=== PATIENT | female | born 1970 | race Caucasian/White ===

== ENCOUNTER 2024-01-25 12:42 | Outpatient (OUT) | payer MEDICARE, SELFPAY ==
--- NOTE | 2024-01-25 12:49 | ECG_ITS ---
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
[2024-01-25 13:21] LABS: INR 0.97; Partial Thromboplastin Time 26.7 sec (22.3-36.2); Prothrombin Time 10.3 sec (9.0-11.6)
== END 2024-01-25 12:43 | disposition home or self-care (01) ==
PROVIDERS: PCP Internal Medicine; Visit Provider Urology
DX: Z01.810 Encounter for preprocedural cardiovascular examination (principal); Z01.812 Encounter for preprocedural laboratory examination; N13.2 Hydronephrosis with renal and ureteral calculous obstruction; F41.9 Anxiety disorder, unspecified; F32.A Depression, unspecified; E78.00 Pure hypercholesterolemia, unspecified; C16.9 Malignant neoplasm of stomach, unspecified
CPT/HCPCS: 36415; 85610; 85730; 93005

== ENCOUNTER 2024-01-26 10:34 | Day surgery (SDC) | payer MEDICARE, SELFPAY ==
[2024-01-25 13:45] VITALS: BP 159/89; PULSE 85; TEMP 36.6; O2SAT 100
[2024-01-25 13:46] VITALS: BMI 34.7
[2024-01-26] VITALS (15 sets, daily range): BP systolic 147–157; BP diastolic 66–81; PULSE 50–78; TEMP 36.3–36.6; O2SAT 92–99; BMI 36.7
--- NOTE | 2024-01-26 10:44 | XR_ITS ---
The [address] [address] Patient Name: HANK LAMAR MRN: [id number] date: 1970 Sex: F Assigned Patient Location: [facility] Current Patient Location: Accession/Order Number: [id number] Exam Date: 01/26/2024 10:40 Report Date: 01/27/2024 08:22 At the request of: SEAMUS PEREIRA Procedure: XR abdomen 1V EXAMINATION: XR abdomen 1V HISTORY: kidney stones COMPARISON: No relevant comparison available. FINDINGS: KIDNEY/URETER - RIGHT: No visible renal or ureteral calcifications. KIDNEY/URETER - LEFT: No visible renal or ureteral calcifications. PELVIS: No visible ureteral calcifications. Any visible calcifications favor phleboliths. BOWEL: No abnormal dilation or deviation. BONES: No acute abnormality. Mild to moderate degenerative changes OTHER: Negative. No abnormal gaseous collections. XR/XR abdomen 1V IMPRESSION: No definite urinary tract calculi Electronically authenticated by: NATY DRAPER Date: 01/27/2024 08:22
[2024-01-26] MEDS: LACTATED RINGER'S SOLUTION 1,000 ML 50 ML IV (11:48)
[2024-01-26] MEDS: CEFAZOLIN SODIUM 2 GM/50 ML D5W PREMIX IV (12:48)
--- NOTE | 2024-01-26 14:05 | P.URON_ITS ---
Urology Surgery Operative Note Operative Note Procedure Date: 01/26/24 Time Out Performed: yes Pre-op Diagnosis: Right ureterolithiasis Post-op Diagnosis: same as pre-op Procedures performed: 1. Right ESWL. 2. Right rigid ureteral dilation. 3. Right ureteroscopy. Anesthesia: General-LMA Primary Surgeon: Dakota Dyer Complications: None Estimated blood loss (mL): 5 Findings: Distal right ureteral calculus Specimens: None Drains: None Indications for Procedures: This lady has a 5 to 6 mm distal right ureteral calculus that she is unable to pass. She is desirous for ESWL and possible ureteroscopic stone manipulation. She has signed an informed consent after risks were explained. Some of these risks include bleeding, perinephric hematoma, infection and anesthesia to name a few. Detailed description of Procedure: The patient was brought to the Operating Room and placed on [employer] lithotripsy treatment table in the supine position. SCDs were placed on their lower extremities and turned on and functioning during the entire case. Timeout was done by all parties in the room. We all agreed upon the patient's identification and the planned procedures for this patient. General Anesthesia was then administered via LMA. Treatment head was then brought to the patient's right side. While using flourscopy the stone was identified and lined up into the crosshairs. We then began applying shocks. We started at power level 2.0 and increased to a maximum power level of 3.5. Intermittent fluoroscopy revealed that the stone seemed to steadily fragment. We applied a total of 3000 shocks. We had no evidence of formed stone visible fluoroscopically upon completion. This part of the procedure was then terminated. She was then repositioned into the modified dorsolithotomy position. All pressure points were satisfactorily padded. Genitalia were sterilely prepped and draped in the usual fashion. I started by passing a 22 [place] Olympus cystoscope per urethra and into the bladder. Panendoscopy in the bladder revealed no evidence of any tumors or stones. There was some debris within the bladder presumedly representing the fragmented stone. I then passed a Glidewire through the scope and up the right ureter. There was an immediate E flux of some stony debris. I then used a 8 [place] dilator to dilate the distal ureter. The scope was removed and I then passed a semirigid ureteroscope into the bladder and into the right ureter. I scoped up to L5 and back and there was no evidence of any formed stone remaining. 1 could see stone debris within the ureter and this was passing into the bladder. I elected not to place a stent. The ureteroscope was removed. The ureter was dilated with a 10 [place] dilator and then the dilator and wire were removed. The cystoscope emptied the bladder and that was removed. She was then transferred to a [facility] bed and wheeled to PACU in stable condition.
[2024-01-26] MEDS: HYDROMORPHONE HCL 0.5 MG/0.5 ML SYRINGE IV ×2 (14:22→14:35)
== END 2024-01-26 15:50 | disposition home or self-care (01) ==
PROVIDERS: PCP Internal Medicine; Visit Provider Urology
PROC: (CPT 50590; principal; 2024-01-26 12:05)
DX: N13.2 Hydronephrosis with renal and ureteral calculous obstruction (principal); F41.8 Other specified anxiety disorders; F41.9 Anxiety disorder, unspecified; E78.00 Pure hypercholesterolemia, unspecified; R35.1 Nocturia; R35.0 Frequency of micturition; R33.9 Retention of urine, unspecified; Z90.49 Acquired absence of other specified parts of digestive tract; Z90.710 Acquired absence of both cervix and uterus; N39.3 Stress incontinence (female) (male); Z87.891 Personal history of nicotine dependence; G47.33 Obstructive sleep apnea (adult) (pediatric); K21.9 Gastro-esophageal reflux disease without esophagitis; Z85.028 Personal history of other malignant neoplasm of stomach
CPT/HCPCS: 50590; 52351; 74018; J0690; J1100; J1170; J1885; J2250; J2405; J2704; J3010

== ENCOUNTER 2024-10-21 16:48 | Emergency (ER) | payer MEDICARE, SELFPAY ==
--- OUTSIDE RECORDS SUMMARY | 2024-10-21 16:59 | XMS_ITS | CCD ---
Author Organization [facility] Care Team Providers Care Choker Hooker Name Role Phone Trey Brown Unavailable Unavailable Unavailable Naty Booker Jr. Unavailable [phone] Trey Brown DO Primary Care Provider Tiffanie Ventura Unavailable DO Trey Brown Primary Care Provider DO Paz Elliott Attending Provider DO Trey Brown Attending Provider [phone] MD Susana Floyd Referring Provider MD Susana Floyd Attending Provider [phone] IGNACIA Diane Emergency Provider Bharti Humphrey Unavailable DO Trey Brown Primary Care Provider Self, Referral Attending Provider Unavailable DO Raad Leigh Attending Provider DO Alexander Cha Emergency Provider [phone] MD Bharti Humphrey Attending Provider Ade Eugene DO, David L Unavailable [phone] Trey Brown DO Primary Care Provider Renu Oquendo Unavailable DO Trey Brown Primary Care Provider DO Seamus Monaco Emergency Provider IGNACIA Oquendo Attending Provider [phone] FRANKLIN Hylton Attending Provider Hernando Hylton Unavailable DO Trey Brown Primary Care Provider DO Ryan Huynh Attending Provider DO Trey Brown Attending Provider Serena Fuentes Unavailable Ade Eugene DO, David L Unavailable Trey Brown DO Primary Care Provider DO Trey Brown Primary Care Provider MD David Mei Emergency Provider MÓNICA ALMANZAR Attending NATY Pires JR Referring Unavailable TREY BROWN [facility] Moni Brown, Dr. Trey Eugene Primary [facility] Sohail Floyd, Dr. Susana Sosa Attending Unavailab ivon Brown, Dr. Trey Eugene [facility] Sohail Floyd, Dr. Susana Sosa Attending Bruceab ivon Brown, Dr. Trey Eugene [facility] Sohail Floyd, Dr. Susana Sosa Attending Bruceab ivon Floyd, Dr. Susana Sosa Attending Bruceab ivon Brown, Dr. Trey Eugene Referring Sohail Floyd, Dr. Susana Sosa Admitting Rosemary Avery, Dr. Trey Eugene [facility] Sohail Floyd, Dr. Susana Sosa Attending Rosemary Avery, Dr. Trey Eugene [facility] Sohail Floyd, Dr. Susana Sosa Attending Rosemary Avery, Dr. Trey Eugene [facility] Sohail Floyd, Dr. Susana Sosa Attending Rosemary Avery, Dr. Trey Eugene [facility] Sohail Floyd, Dr. Susana Sosa Attending Rosemary Avery, Dr. Trey Eugene [facility] Sohail Floyd, Dr. Susana Sosa Attending Bruceab ivon Brown, Dr. Trey Eugene [facility] Sohail Brown, Dr. Trey Eugene [facility] Sohail Floyd, Dr. Susana Sosa Attending Unavailab le Everett, Dr. Susana Sosa Attending Unavailab le Everett, Dr. Susana Sosa Referring Unavailab le Stephanie, Dr. Trey Eugene Primary Care Rachel Lainez Attending Unavailabl e Robbie, Rachel Referring Unavailabl e Stephanie, Dr. Trey Eugene Primary Care Sohail Avalos, Rachel Attending Unavailabl e Robbie, Rachel Referring Unavailabl e Stephanie, Dr. Trey Eugene Primary Care Sohail Floyd, Dr. Susana Sosa Attending Unavailab le Everett, Dr. Susana Sosa Referring Unavailab le Stephanie, Dr. Trey Eugene [facility] DO Trey Ward Primary Care Provider [phone] IGNACIA Oquendo Attending Provider DO Trey Brown Primary Care Provider IGNACIA Oquendo Attending Provider DO Trey Brown Referring Provider DO Dick Hall Attending Provider IGNACIA Diane Emergency Provider [phone] Trey Brown DO Unavailable [phone] Trey Brown DO Primary Care Provider DO Trey Brown Primary Care Provider [phone] IGNACIA Howard Emergency Provider [phone] IGNACIA Oquendo Attending Provider [phone] TREY BROWN Primary Care Unavailabl e PROVIDER, UNKNOWN Referring Unavailable PROVIDER, UNKNOWN Referring Unavailable TREY BROWN Primary Care Unavailabl e TREY BROWN Primary Care Unavailabl e PROVIDER, UNKNOWN Referring Unavailable DO Trey Brown Primary Care Provider IGNACIA Howard Emergency Provider [phone] IGNACIA Oquendo Attending Provider MD Ezequiel Cano Attending Provider [phone] Trey Brown DO Primary Care Provider DO Trey Brown Primary Care Provider [phone] SamsaDO Campos Attending Provider DO Trey Brown Primary Care Provider [phone] DO Kaiden Myers Emergency Provider [phone] DO Trey Brown Primary Care Provider DO Seamus Monaco Emergency Provider MD Seamus Dyer Attending Provider [phone] Trey Brown DO Unavailable [phone] Rachael Banegas CNP Unavailable TREY BROWN Primary Care Physician Unavail able Trey Brown DO Primary Care Provider Seamus Dyer MD Attending Provider Campos Wong DO Attending Provider [phone] Vu Bermudez DO Attending Provider [phone] Pat Barnett APRN Attending Provider Trey Brown DO Primary Care Provider Trinity Monet MD Attending Provider TRINITY MONET Attending Unavailable TREY BROWN Primary Care Unavailable Hernando Hylton PA-C Attending Provider Pat Barnett APRN Attending Provider Trey Brown DO Primary Care Provider Trinity Monet MD Attending Provider Hernando Hylton PA-C Attending Provider [phone] Luis Fernando Dela Cruz MD Attending Provider LINDA VALERO Referring Unavailable TREY BROWN Primary Care Unavailabl ELIDA Mora Attending Unavailable TREY BROWN Primary Care Unavailabl LALA Plummer Referring Unavailable SOL NUÑEZ Attending Unavailable TREY BROWN JABIER Primary Care Unavailabl TOBIN Boateng Referring Unavailable TREY BROWN [facility] Primary Care Unavailabl e SOL NUÑEZ Referring Unavailable TREY BROWN JABIER Primary Care Unavailabl e HEATHER JOLLY Attending Unavailable LALA CARBAJAL Referring Unavailable SOL NUÑEZ Attending Unavailable TREY BROWN JABIER Primary Care Unavailabl TREY Briones [facility] Primary Care Unavailabl LUIS FERNANDO Cabrera Attending Unavailable NATY BOOKER JR Referring Unavailable TREY BROWN JABIER Primary Care Unavailabl NATY Villalta JR Attending Unavailable TREY BROWN [facility] Primary Care Unavailabl e ANGEL CISSE Referring Unavailable TREY BROWN [facility] Primary Care Unavailabl e TREY BROWN [facility] Primary Care Unavailabl e JOAQUIM MANN Attending Unavailable TREY BROWN [facility] Primary Care Unavailabl e TREY BROWN [facility] Primary Care Unavailabl e ABHYANKAR, ANNEMARIE Referring Unavailable TREY BROWN [facility] Primary Care Unavailabl e ABHYANKAR, ANNEMARIE Referring Unavailable TREY BROWN JABIER Primary Care Unavailabl e ABHYANKAR, ANNEMARIE Referring Unavailable LALA CARBAJAL Attending Unavailable TREY BORWN Referring Unavailabl TREY Briones JABIER Primary Care Unavailabl e TREY BROWN [facility] Primary Care Unavailabl e TREY BROWN JABIER Primary Care Unavailabl TREY Briones JABIER Primary Care Unavailabl TREY Briones JABIER Primary Care Unavailabl e HYANKAR, ANNEMARIE Referring Unavailable FAWNARMAIRAEK Attending Unavailable SOL NUÑEZ Referring Unavailable TREY BROWN JABIER Primary Care Unavailabl e HEATHER JOLLY Attending Unavailable SOL NUÑEZ Referring Unavailable TREY BROWN [facility] Primary Care UnavailHEATHER Gomez Attending Unavailable TREY BROWN JABIER Primary Care Unavailabl e ABHYANKAR, ANNEMARIE Referring Unavailable TREY BROWN [facility] Primary Care Unavailabl e ABHYANKAR, ANNEMARIE Referring Unavailable TREY BROWN JABIER Primary Care Unavailabl NATY Villalta JR Referring Unavailable SANDRA GAGE Attending Unavaila TREY Goins [facility] Primary Care Unavailabl e TREY BROWN [facility] Primary Care Unavailabl e ANNEMARIE JUDD Attending Unavailable SOL NUÑEZ Referring Unavailable TREY BROWN JABIER Primary Care Unavailabl e HEATHER JOLLY Attending Unavailable LINDA VALERO Attending Unavailable RACHAEL BANEGAS Referring Unavailable TREY BROWN JABIER Primary Care Unavailabl e NATY BOOKER JR Referring Unavailable ELOINA MADERA Attending Unavailable TREY BROWN JABIER Primary Care Unavailabl e ANJUMLINDA PEREZ Referring Unavailable TREY BROWN [facility] Primary Care Unavailabl e ZACHARY, RIM S Referring Unavailable TREY BROWN [facility] Primary Care Unavailabl e LINDA VALERO Referring Unavailable ZACHARY, RIM S Attending Unavailable TREY BROWN JABIER Primary Care Unavailabl e Gisell Howard APRN Emergency Provider [phone] TREY BROWN Attending Unavailable TREY BROWN Referring Unavailable DICK HALL Attending Unavailable TREY BROWN Attending Unavailable TREY BROWN Attending Unavailable SONIA SOFIA Attending Unavailable TREY BROWN Attending Unavailable TREY BROWN Referring Unavailable TREY BROWN Referring Unavailable RACHAEL BANEGAS Attending Unavailable RACHAEL BANEGAS Referring Unavailable RACHAEL BANEGAS Referring Unavailable KARLA WALLACE Attending Unavailable TREY BROWN Attending Unavailable TREY BROWN Referring Unavailable LALA LIU Attending Unavailable TREY BROWN Attending Unavailable Stephanie STEVENSON Trey Primary [facility] Provider [phone] Seamus DYER Attending Unavailable HEATHER SAMUEL Attending Unavailable HEATHER SAMUEL Attending Unavailable Seamus DYER Attending Unavailable HEATHER SAMUEL Attending Unavailable Luis Fernando Dela Cruz Attending Unavailable Trey Brown Primary Care Unavailable Luis Fernando Dela Cruz Admitting Unavailable Hernando Hylton Admitting Unavailable Hernando Hylton Attending Unavailable Trey Brown [facility] Care Unavailable Trinity Monet Admitting Unavailable Trinity Monet Attending Unavailable Pat Barnett Admitting Unavailable Pat Barnett Attending Unavailable Trey Brown Primary Care Unavailable Vu Bermudez Admitting Unavailable [place], Vu N Attending Unavailable Samsa, Campos P Admitting Unavailable Samsa, Campos P Attending Unavailable [facility] [place] Primary Care Unavailable Stephanie, [place] Primary Care Unavailable Dyer, Seamus Admitting Unavailable Dyer, Seamus Attending Unavailable Stephanie, [place] Primary Care Unavailable Tupa, Seamus M Admitting Unavailable Tupa, Seamus M Attending Unavailable Lucia, Kaiden M Admitting Unavailable Lucia, Kaiden M Attending Unavailable Stephanie, [place] Primary Care Unavailable Stephanie, [place] Primary Care Unavailable Saffle, Gisell N Admitting Unavailable Saffle, Gisell N Attending Unavailable Dyer, Seamus Attending Unavailable Stephanie, [place] Primary Care Unavailable Dyer, Seamus Admitting Unavailable Warner, Calley Attending Unavailable Warner, Calley Admitting [facility] Un[facility] Blank, Luis Fernando Admitting Unavailable Blank, Luis Fernando Attending Unavailable Blank, Luis Fernando [facility] Blank, Luis Fernando Admitting Unavailable Unavailable Unavailable Unavailable Allergies Allergy Classification Reported Allergen(s) Allergy Type Date of Onset Reaction(s) Facility Aminoketones (1 source) buPROPion Drug Allergy 05-10-19 24 Other: See Comments [facility] HMG-CoA Reductase Inhibitors (statins) (1 source) atorvastatin Drug Allergy 05-25-19 22 Other: See Comments [facility] Iodine (and Iodine containting drugs) (1 source) Iodine Drug Allergy 04-18-20 17 Hives, Anaphylaxis, Shortness of Breath [facility] Mirtazapine (1 source) Mirtazapine Drug Allergy 05-25-19 22 Hives, Other: See Comments [facility] Nalbuphine (2 sources) Nalbuphine Drug Allergy 04-18-20 17 Shortness of Breath, Other: See Comments, Myalgia, Unknown [facility] (20 sources) buPROPion; Translations: [BUPROPION] Drug Allergy 05-10-19 24 Other: See Comments [facility] (20 sources) Nalbuphine; Translations: [NALBUPHINE] Drug Allergy 04-18-20 17 Shortness of Breath, Other: See Comments, Myalgia, Unknown [facility] (20 sources) Iodinated Contrast Media; Translations: [IODINATED CONTRAST MEDIA] Allergy to substance 11-30-19 19 Hives, Other: See Comments, Shortness of Breath [facility] (9 sources) buPROPion; Translations: [Wellbutrin] Drug Allergy Seizures [facility] [address] DO Work Phone: (20 sources) Iodine; Translations: [iodine] Drug Allergy 04-18-20 17 Hives, Anaphylaxis, Shortness of Breath, Unknown (qualifier value) [facility] (20 sources) Nalbuphine; Translations: [Nubain] Drug Allergy Myalgia, Unknown [facility] [employer] Other (15 sources) Sddktkuwv-5-Bsnj phosphate Powder; Translations: [Qzxdkhoxp-5-Abj ophosphate Powder] Allergy to drug (finding) Tachycardia -[facility] [facility] DO Work Phone: (20 sources) Nalbuphine; Translations: [NALBUPHINE HCL] Drug Allergy 04-18-20 17 Unknown [facility] (8 sources) Contrast media Propensity to adverse reactions Unknown [facility] [employer] Other (4 sources) atorvastatin; Translations: [ATORVASTATIN] Drug Allergy 05-25-19 [facility] (4 sources) Mirtazapine; Translations: [MIRTAZAPINE] Drug Allergy 05-25-19 Hives [facility] (20 sources) atorvastatin Drug Allergy 05-25-19 Other: See Comments [facility] (20 sources) Mirtazapine Drug Allergy 05-25-19 Hives, Other: See Comments [facility] Medications Current Medications Medication Drug Class(es) Dates Sig (Normalized) Sig (Original) Ascorbic Acid (2 sources) Vitamin C Start: 01-25-2024 Vitamin C Daily, Refills(s) 0 Start Date: 01/25/24 Status: Ordered bismuth subsalicylate (1 source) Bismuth Pepto-Bismol Active Creon 30926 UNIT (9 sources) Start: 09-29-2020 take 1 capsule by mouth three times daily Start: 09-29-2020 take 1 capsule by mo uth three times daily Creon 29505 UNIT 1 CAPSULE Orally THREE TIMES A DAY for 30 days September, Not-Taking Start: 09-29-2020 take 1 capsule by mo uth three times daily Creon 49989 UNIT 1 CAPSULE Orally THREE TIMES A DAY for 30 days September, Active Start: 09-11-2020 Gracy 72356 UN IT as directed Orally September, Active cyclobenzaprine hydrochloride 5 mg oral tablet (6 sources) Muscle Relaxant Start: 07-30-2024 take 1 tablet by mouth once daily at bedtime as needed for muscle spasms Cyclobenzaprine 5 mg tablet Active 5 MG PO Daily at bedtime as needed for muscle spasm July 30, 2024 12:00am Docusate (2 sources) Start: 01-25-2024 take 1 mg by mouth twice daily Dulcolax Stool Softener mg, Oral, BID, Refills(s) 0 Start Date: 01/25/24 Status: Ordered docusate sodium 50 mg / sennosides, long term 8.6 mg oral tablet (20 sources) Start: 06-19-2024 take 2 tablets by mouth once at bedtime senna-docusate (SENEXON-S) 8.6-50 mg per tablet TAKE 2 TABLETS BY MOUTH AT BEDTIME 60 tablet 11 06/19/2024 Active Start: 04-06-2024 Sennosides-Doc usate Sodium (Senexon-S) 8.6-50 mg tablet Active PO April 06, 2024 1:00am Start: 03-29-2024 End: 06-27-2024 take 2 tablets by mouth once daily at bedtime senna-docusate (SENOKOT-S) 8.6-50 mg per tablet Take 2 tablets by mouth daily at bedtime. 60 tablet 2 03/29/2024 06/27/2024 Active esomeprazole 40 mg delayed release oral capsule (20 sources) Proton Pump Inhibitor Start: 04-16-2024 take 1 capsule by mouth in the morning esomeprazole (NexIUM) [address] capsule Indications: Irritable bowel syndrome with both constipation and diarrhea , Gastroparesis , Gastroesophageal reflux disease with esophagitis without hemorrhage Take 1 capsule (40 mg) by mouth in the morning and 1 capsule (40 mg) before bedtime. Do not open capsule.. 90 capsule 1 04/16/2024 Active Start: 04-16-2024 End: 05-19-2024 take 1 capsule by mouth once daily Esomeprazole Magnes ium (Nexium) 40 mg capsule,delayed release(DR/EC) Discontinued 40 MG PO Daily April 16, 2024 1:00am May 19, 2024 2:51pm Start: 07-14-2022 End: 05-10-2023 take 1 capsule by mouth twice daily esomeprazole (NEXIUM) 40 mg capsule Indications: Gastroesophageal reflux disease, unspecified whether esophagitis present Take 1 capsule by mouth twice daily. 60 capsule 4 07/14/2022 05/10/2023 Discontinued (Course of therapy completed) Start: 08-15-2020 End: 09-02-2023 Esomeprazole Magnesium [address] for susp in packet Discontinued 40 MG PO As Directed as needed for Acid Reflux August 15, 2020 12:00am September 02, 2023 4:54pm Start: 05-05-2018 End: 11-19-2019 take 1 capsule by mouth once daily as needed for gastroesophageal reflux disease Esomeprazole Magnesium (Nexium) 40 mg Capsule,Delayed Release(Dr/Ec) Discontinued 40 MG PO Daily as needed for gerd May 05, 2018 1:00am November 19, 2019 1:38pm Start: 03-20-2017 End: 02-11-2022 esomeprazole (NEXIUM) 40 mg capsule BID 1 03/20/2017 02/11/2022 Discontinued Comment on above: BID Take 1 capsule by [facility] twice daily. fluconazole 150 mg oral tablet (1 source) Azole Antifungal Start: 08-17-19 End: 08-18-19 fluconazole (Diflucan) 150 MG tablet Indications: Acute vaginitis Take 1 tablet (150 mg) by mouth See administration instructions for 1 day Take one tab now. Repeat in 7 days if symptoms persist. 2 tablet 08/16/2024 08/17/2024 Active fluticasone propionate 0.05 mg/actuat metered dose nasal spray (14 sources) Corticosteroid Start: 05-23-19 take 1 spray(s) nasal route once daily Fluticasone Propionate 50 mcg/actuation spray,suspension Active 2 SPRAY INTRANASAL Daily May 23, 2024 1:00am administer into each nostril ibuprofen 800 mg oral tablet (20 sources) Nonsteroidal Anti-inflammatory Drug Start: 07-24-19 take 1 tablet by mouth in the morning, then take 1 tablet by mouth in the evening, then take 1 tablet by mouth at bedtime ibuprofen 800 MG tablet Take 800 mg by mouth in the morning and 800 mg in the evening and 800 mg before bedtime. 01/23/2024 Active Start: 05-05-2018 End: 04-23-2019 take 1 tablet by mouth every eight hours as needed for pain Ibuprofen 600 mg Tablet Discontinued 600 MG PO Q8H as needed for Pain May 05, 2018 1:00am April 23, 2019 3:30pm iv contrast (will be provide d with radiology test) (16 sources) Start: 07-30-2023 End: 07-31-2023 iv contrast (will be provide d with radiology test) Indications: Malignant carcinoid tumor of duodenum (HCC) CT Chest W -Inject, intravenously, once for 1 dose.No IV access, insert saline lock prior to the beginning of sedation, infusion, injection of imaging exam. Discontinue saline lock post exam. If Pt. has a central line or IVAD, may access for administration according to line specific nursing protocol. Once exam is complete flush line and de-access according to line specific nursing protocol in the CT contrast administration guidelines link. 1 Each 0 07/30/2023 07/31/2023 Active Start: 07-30-2023 End: 07-31-2023 iv contrast (will be provide d with radiology test) Indications: Malignant carcinoid tumor of duodenum (HCC) CT LIVER/PEL Inject, intravenously, once for 1 dose.No IV access, insert saline lock prior to the beginning of sedation, infusion, injection of imaging exam. Discontinue saline lock post exam. If Pt. has a central line or IVAD, may access for administration according to line specific nursing protocol. Once exam is complete flush line and de-access according to line specific nursing protocol in the CT contrast administration guidelines link. 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 Discontinue saline lock post exam. If Pt. has a central line or IVAD, may access for administration according to line specific nursing protocol. Once exam is complete flush line and de-access according to line specific nursing protocol in the CT contrast administration guidelines link. 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 Discontinue saline lock post exam. If Pt. has a central line or IVAD, may access for administration according to line specific nursing protocol. Once exam is complete flush line and de-access according to line specific nursing protocol in the CT contrast administration guidelines link. 1 Each 0 03/14/2023 03/15/2023 Active Start: 06-14-2019 End: 02-11-2022 iv contrast (will be provide d with radiology test) CT Chest ABD/PEL-Inject, intravenously, once for 1 dose.No IV access, insert saline lock prior to the beginning of sedation, infusion, injection of imaging exam. Discontinue saline lock post exam. If Pt. has a central line or IVAD, may access for administration according to line specific nursing protocol. Once exam is complete flush line and de-access according to line specific nursing protocol in the CT contrast administration guidelines link. 1 Each 0 06/14/2019 02/11/2022 Discontinued (Discontinued by another Health Care Provider) Start: 06-14-2019 iv contrast (w ill be provided with radiology test) CT Chest ABD/PEL-Inject, intravenously, once for 1 dose.No IV access, insert saline lock prior to the beginning of sedation, infusion, injection of imaging exam. Discontinue saline lock post exam. If Pt. has a central line or IVAD, may access for administration according to line specific nursing protocol. Once exam is complete flush line and de-access according to line specific nursing protocol in the CT contrast administration guidelines link. 1 Each 0 06/14/2019 Active Start: 12-07-2018 End: 02-11-2022 iv contrast (will be provide d with radiology test) CT Chest ABD/PEL-Inject, intravenously, once for 1 dose.No IV access, insert saline lock prior to the beginning of sedation, infusion, injection of imaging exam. Discontinue saline lock post exam. If Pt. has a central line or IVAD, may access for administration according to line specific nursing protocol. Once exam is complete flush line and de-access according to line specific nursing protocol in the CT contrast administration guidelines link. 1 Each 0 12/07/2018 02/11/2022 Discontinued (Discontinued by another Health Care Provider) Start: 12-07-2018 iv contrast (w ill be provided with radiology test) CT Chest ABD/PEL-Inject, intravenously, once for 1 dose.No IV access, insert saline lock prior to the beginning of sedation, infusion, injection of imaging exam. Discontinue saline lock post exam. If Pt. has a central line or IVAD, may access for administration according to line specific nursing protocol. Once exam is complete flush line and de-access according to line specific nursing protocol in the CT contrast administration guidelines link. 1 Each 0 12/07/2018 Active Start: 11-16-2018 End: 02-11-2022 iv contrast (will be provide d with radiology test) CT Chest ABD/PEL-Inject, intravenously, once for 1 dose.No IV access, insert saline lock prior to the beginning of sedation, infusion, injection of imaging exam. Discontinue saline lock post exam. If Pt. has a central line or IVAD, may access for administration according to line specific nursing protocol. Once exam is complete flush line and de-access according to line specific nursing protocol in the CT contrast administration guidelines link. 1 Each 0 11/16/2018 02/11/2022 Discontinued (Discontinued by another Health Care Provider) Start: 11-16-2018 End: 02-11-2022 inject 1 dose intravenously once iv contrast (will be provided with radiology test) MRI Brain Inject, intravenously, once for 1 dose.No IV access, insert saline lock prior to beginning of sedation, infusion, injection of imaging exam.Discontinue saline lock post exam. If Pt. has a central line or IVAD, may access for administration according to line specific nursing protocol.Once exam is complete flush line and de-access according to line specific nursing protocol in the MR contrast administration guidelines link 1 Each 0 11/16/2018 02/11/2022 Discontinued (Discontinued by another Health Care Provider) Start: 11-16-2018 iv contrast (w ill be provided with radiology test) CT Chest ABD/PEL-Inject, intravenously, once for 1 dose.No IV access, insert saline lock prior to the beginning of sedation, infusion, injection of imaging exam. Discontinue saline lock post exam. If Pt. has a central line or IVAD, may access for administration according to line specific nursing protocol. Once exam is complete flush line and de-access according to line specific nursing protocol in the CT contrast administration guidelines link. 1 Each 0 11/16/2018 Active Start: 11-16-2018 inject 1 dose intravenously on ce iv contrast (will be provided with radiology test) MRI Brain Inject, intravenously, once for 1 dose.No IV access, insert saline lock prior to beginning of sedation, infusion, injection of imaging exam.Discontinue saline lock post exam. If Pt. has a central line or IVAD, may access for administration according to line specific nursing protocol.Once exam is complete flush line and de-access according to line specific nursing protocol in the MR contrast administration guidelines link 1 Each 0 11/16/2018 Active Comment on above: CT Chest ABD/PEL-Inj ect, intravenously, once for 1 dose.No IV access, insert saline lock prior to the beginning of sedation, infusion, injection of imaging exam. Discontinue saline lock post exam. If Pt. has a central line or IVAD, may access for administration according to line specific nursing protocol. Once exam is complete flush line and de-access according to line specific nursing protocol in the CT contrast administration guidelines link. MRI Brain Inject, in travenously, once for 1 dose.No IV access, insert saline lock prior to beginning of sedation, infusion, injection of imaging exam.Discontinue saline lock post exam. If Pt. has a central line or IVAD, may access for administration according to line specific nursing protocol.Once exam is complete flush line and de-access according to line specific nursing protocol in the MR contrast administration guidelines link CT ABD/PEL -Inject, intravenously, once for 1 dose.No IV access, insert saline lock prior to the beginning of sedation, infusion, injection of imaging exam. Discontinue saline lock post exam. If Pt. has a central line or IVAD, may access for administration according to line specific nursing protocol. Once exam is complete flush line and de-access according to line specific nursing protocol in the CT contrast administration guidelines link. CT Chest W -Inject, intravenously, once for 1 dose.No IV access, insert saline lock prior to the beginning of sedation, infusion, injection of imaging exam. Discontinue saline lock post exam. If Pt. has a central line or IVAD, may access for administration according to line specific nursing protocol. Once exam is complete flush line and de-access according to line specific nursing protocol in the CT contrast administration guidelines link. CT LIVER/PEL Inject, intravenously, once for 1 dose.No IV access, insert saline lock prior to the beginning of sedation, infusion, injection of imaging exam. Discontinue saline lock post exam. If Pt. has a central line or IVAD, may access for administration according to line specific nursing protocol. Once exam is complete flush line and de-access according to line specific nursing protocol in the CT contrast administration guidelines link. lactobacillus acidophilus 1.5 mg oral capsule (6 sources) Start: 07-30-2024 Lactobacillus Acidophilus (Probiotic Acidophilus) 250 million cell capsule Active 1000 MMU CELLS PO Daily July 30, 2024 12:00am Magnesium (7 sources) Magnesium Active metroNIDAZOLE 500 mg oral tablet (3 sources) Nitroimidazole Antimicrobial Start: 08-05-2023 End: 08-12-2023 take 1 tablet by mouth twice daily metroNIDAZOLE (FLAGYL) 500 mg tablet Take 1 tablet by mouth two times a day for 7 days. 14 tablet 0 08/05/2023 08/12/2023 Active Comment on above: Take 1 tablet by chay th two times a day for 7 days. Multi Vitamin+ (2 sources) Start: 01-25-2024 Multi Vitamin+ Refill(s) 0 Start Date: 01/25/24 Status: Ordered [id number] ETHYL ESTERS PO (2 sources) take 2 capsules by mouth in the morning [id number] ETHYL ESTERS PO Take 2 capsules by mouth in the morning. 0 Active ondansetron 4 mg disintegrating oral tablet (20 sources) Serotonin-3 Receptor Antagonist Start: 04-16-2024 take 1 tablet by mouth every eight hours for nausea ondansetron ODT (Zofran-ODT) 4 MG disintegrating tablet Indications: Irritable bowel syndrome with both constipation and diarrhea , Gastroparesis , Gastroesophageal reflux disease with esophagitis without hemorrhage Take 1 tablet (4 mg) by mouth every 8 (eight) hours if needed for nausea or vomiting 20 tablet 1 04/16/2024 Active Start: 01-23-2024 End: 04-06-2024 Ondansetron 4 mg tablet,disi ntegrating Discontinued 4 MG PO every 6 to 8 hours January 23, 2024 12:00am April 06, 2024 12:29pm Start: 05-13-2021 End: 11-28-2021 take 1 tablet by mouth every eight hours as needed for nausea and vomiting Ondansetron 4 mg tablet,disintegrating Discontinued 4 MG PO Q8H as needed for nausea and vomiting May 13, 2021 1:00am November 28, 2021 3:49pm Start: 08-15-2020 take 1 tablet by chay th every six hours as needed Zofran ODT 4 MG 1 tablet on the tongue and allow to dissolve Orally EVERY 6 HRS NEEDED for 30 day(s) Aug, Active Start: 05-18-2018 End: 05-23-2018 take 4 mg by mouth three times daily Ondansetron Discontinued 4 MG PO Three times daily May 18, 2018 1:00am May 23, 2018 1:02am Start: 05-18-2018 End: 05-23-2018 take 4 mg by mouth three times daily Ondansetron Discontinued 4 MG PO Three times daily May 18, 2018 12:00am May 23, 2018 12:02am phentermine hydrochloride 37.5 mg oral tablet (20 sources) Sympathomimetic Amine Anorectic Start: 09-24-2024 take 1 tablet by mouth before mealtime phentermine (Adipex-P) 37.5 MG tablet Indications: Obesity (BMI 30.0-34.9) TAKE 1 TABLET BY MOUTH IN THE MORNING BEFORE A MEAL 30 tablet 09/24/2024 Active Start: 08-22-2024 End: 09-24-2024 take 1 tablet by mouth before mealtime phentermine (Adipex-P) 37.5 MG tablet Indications: Obesity (BMI 30.0-34.9) Take 1 tablet (37.5 mg) by mouth in the morning. Take before meals. 30 tablet 08/22/2024 09/24/2024 Discontinued Start: 09-20-2023 End: 03-05-2024 take 1 tablet by mouth once daily 30 minutes after breakfast Phentermine (Adipex-P) 37.5 mg tablet Discontinued 37.5 MG PO Daily September 20, 2023 12:00am December 07, 2023 2:58pm must administer 30 minutes before or 1-2 hours after breakfast Start: 08-18-2022 End: 05-10-2023 take 1 tablet by mouth once daily Phentermine HCl 37.5 mg tablet Take 37.5 mg by mouth once daily. 08/18/2022 05/10/2023 Discontinued (Course of therapy completed) take 1 capsule by mo uth every twenty-four hours Adipex-P 37.5 MG 1 capsule Orally Once a day Not-Taking/PRN Comment on above: Take 37.5 mg by mout h once daily. Prebiotic Product (7 sources) Prebiotic Produc t Active Prebiotic Produc t Not-Taking Probiotic (7 sources) Probiotic Active Probiotic Not-Ta juan [place] Probiotic Product (PROBIOTIC DAILY PO) (2 sources) take 1 capsule by mouth once daily in the morning Probiotic Product (PROBIOTIC DAILY PO) Take 1 capsule by mouth in the morning. 0 Active psyllium 3400 mg powder for oral suspension (3 sources) take 3 g by mouth in the morning psyllium (Metamucil) 58.6 % powder Take 3 g of fiber by mouth in the morning and 3 g of fiber before bedtime. Active rOPINIRole 0.25 mg oral tablet (20 sources) Nonergot Dopamine Agonist Start: 09-24-2024 take 2 tablets by mouth at bedtime rOPINIRole (Requip) 0.25 MG tablet Indications: Hemoptysis TAKE 2 TABLETS BY MOUTH AT BEDTIME 180 tablet 09/24/2024 Active Start: 01-25-2024 ropinirole Ora l Start Date: 01/25/24 Status: Ordered Start: 11-28-2021 End: 09-24-2024 take 2 tablets by mouth at bedtime rOPINIRole (Requip) 0.25 MG tablet Indications: Hemoptysis Take 2 tablets (0.5 mg) by mouth at bedtime 180 tablet 1 04/16/2024 09/24/2024 Discontinued Start: 11-28-2021 take 0.5 mg by mouth at bedtim e Ropinirole Active 0.5 MG PO Bedtime November 28, 2021 12:00am Start: 11-28-2021 take 0.25 mg by mout h at bedtime Ropinirole Active 0.25 MG PO Bedtime November 28, 2021 12:00am Start: 11-28-2021 Ropinirole Act meme MG TABLET November 28, 2021 12:00am rOPINIRole HCl T ABS Take 1 tablet twice daily Quantity: 0 Refills: 0 Ordered: 31-Dec-2021 DO Active rOPINIRole HCl A ctive rOPINIRole HCl T ABS TAKE 1 TABLET DAILY. Quantity: 0 Refills: 0 Ordered: 20-Oct-2021 DO Active Comment on above: Take 0.5 mg by mouth once daily as needed. rosuvastatin calcium 40 mg oral tablet (20 sources) HMG-CoA Reductase Inhibitor Start: take 40 mg by mouth once daily rosuvastatin 40 mg, Oral, Daily Start Date: 01/25/24 Status: Ordered Start: 09-02-2023 Rosuvastatin A ctive MG PO September 02, 2023 12:00am Start: 04-21-2023 take 1 tablet by chay th at bedtime rosuvastatin (Crestor) 40 MG tablet Indications: Mixed hyperlipidemia (CMS/HCC) Take 1 tablet (40 mg) by mouth at bedtime 90 tablet 3 04/16/2024 Active Start: 10-02-2020 End: 09-02-2023 Rosuvastatin 10 mg Tablet Discontinued 10 MG PO As Directed October 02, 2020 12:00am September 02, 2023 4:54pm Start: 02-05-2020 End: 10-02-2020 take 1 tablet by mouth once daily Rosuvastatin (Crestor) 5 mg Tablet Discontinued 5 MG PO Daily February 05, 2020 12:00am October 02, 2020 11:46am Rosuvastatin Mihir cium Not-Taking Rosuvastatin Mihir cium Active Comment on above: Take 10 mg by mouth daily at bedtime. Take 40 mg by mouth daily at bedtime. traZODone hydrochloride 100 mg oral tablet (20 sources) Serotonin Reuptake Inhibitor Start: take 1 tablet by mouth at bedtime traZODone (Desyrel) 100 MG tablet Indications: Anxiety and depression (CMS/HCC) TAKE 1 TABLET BY MOUTH AT BEDTIME 90 tablet 09/24/2024 Active Start: 10-02-2020 End: 09-24-2024 take 1 tablet by mouth at bedtime traZODone (Desyrel) 100 MG tablet Indications: Anxiety and depression (CMS/HCC) Take 1 tablet (100 mg) by mouth at bedtime 90 tablet 1 04/16/2024 09/24/2024 Discontinued Start: 07-24-2019 take 1 mg by mouth twice daily traZODONE 100 mg Tab mg tab(s), Oral, BID, Refills(s) 0 Start Date: 07/24/19 Status: Ordered Start: 03-01-2018 take 100 mg by mouth once daily at bedtime Trazodone Active 100 MG Oral Daily at bedtime March 01, 2018 12:23pm Start: 03-01-2018 End: 10-02-2020 take 1 tablet by mouth once daily at bedtime Trazodone 50 mg Tablet Discontinued 50 MG PO Daily at bedtime March 01, 2018 12:00am October 02, 2020 11:45am End: 05-10-2023 take 2 tablets by mouth once daily at bedtime traZODone (DESYREL) 50 mg tablet Take 100 mg by mouth daily at bedtime. 05/10/2023 Discontinued (Course of therapy completed) Comment on above: Take 50 mg by mouth daily at bedtime. Take 100 mg by mouth daily at bedtime. Valcyclovir-500 mg 500 mg (8 sources) take 1 tablet by chay th twice daily take 1 tablet by mouth twice horacio ly Valcyclovir-500 mg 500 mg one tab orally twice a day Not-Taking take 1 tablet by mouth twice horacio ly Valcyclovir-500 mg 500 mg one tab orally twice a day Active wheat dextrin 3000 mg powder for oral solution (1 source) Wheat Dextrin (b enefiber drink mix) packet Take 1 packet by mouth in the morning and 1 packet at noon and 1 packet in the evening. Take with meals. Active Completed/Discontinued Medications Medication Drug Class(es) Dates Sig (Normalized) Sig (Original) acetaminophen 325 mg / HYDROcodone bitartrate 5 mg oral tablet (20 sources) Opioid Agonist Start: 01-23-2024 End: 04-06-2024 take 1 tablet by mouth every six hours as needed for pain Hydrocodone-Acetami nophen 5-325 mg tablet Discontinued 1 TAB PO Q6H as needed for Pain 14 5 January 23, 2024 April 06, 2024 12:29pm Start: 02-27-2021 End: 07-31-2021 take 1 tablet by mouth every six hours as needed for pain Hydrocodone-Acetaminophen 5-325 mg table t Discontinued 1 TAB PO Q6H as needed for pain 10 3 February 27, 2021 July 31, 2021 7:40am albuterol 0.83 mg/ml inhalation solution (20 sources) beta2-Adrenergic Agonist Start: 09-22-2023 End: 12-07-2023 take 2.5 mg by inhalation every six hours as needed Albuterol Sulfate 2.5 mg /3 mL (0.083 %) solution for nebulization Discontinued 2.5 MG INHALATION Every 6 hours as needed September 22, 2023 12:00am December 07, 2023 2:58pm Start: 04-20-2023 End: 04-19-2024 take 2 puff(s) by inhalation every four hours for wheezing albuterol HFA 90 mcg/act inhaler Indications: Shortness of breath Inhale 2 puffs every 4 (four) hours if needed for wheezing 18 g 2 04/20/2023 04/19/2024 Active Start: 06-04-2021 End: 02-11-2022 take 2 puff(s) by mouth every four hours as needed albuterol HFA (PROVENTIL HFA, VENTOLIN HFA) 90 mcg/actuation inhaler INHALE 2 PUFFS BY MOUTH EVERY FOUR HOURS NEEDED 0 06/04/2021 02/11/2022 Discontinued take 1-2 puff(s) by inhalation every four to six hours as needed Albuterol 90 MCG/ACT AERS INHALE 1 TO 2 PUFFS EVERY 4 TO 6 HOURS NEEDED AND DIRECTED. Quantity: 0 Refills: 0 Ordered: 23-Jun-2021 DO Active Comment on above: INHALE 2 PUFFS BY MO UTH EVERY FOUR HOURS NEEDED ALPRAZolam 0.5 mg oral tablet (20 sources) Benzodiazepine Start: 03-01-20 End: 08-01-19 take 1 tablet by mouth three times daily as needed for anxiety Alprazolam 0.5 mg tablet Discontinued 0.5 MG PO Three times daily as needed for Anxiety March 01, 2018 12:00am July 31, 2021 7:39am Start: 04-15-2017 End: 02-11-2022 take 1 tablet by mouth twice daily ALPRAZolam (XANAX) 0.5 mg tablet Take 0.5 mg by mouth twice daily. 1 04/15/2017 02/11/2022 Discontinued take 1 tablet by chay th once daily ALPRAZolam 0.25 MG Oral Tablet TAKE 1 TABLET DAILY. Quantity: 0 Refills: 0 Ordered: 21-Apr-2021 DO Active Xanax TID PRN Ac tive Comment on above: Take 0.5 mg by mouth twice daily. Aluminum Hydroxide / Magnesium Hydroxide / Simethicone (20 sources) Start: 05-05-20 18 End: 03-17-20 19 take 1 mL by mouth once daily as needed for gastroesophageal reflux disease Mylanta Discontinued 30 ML PO Daily as needed for gerd May 05, 2018 1:00am March 17, 2019 5:53pm Start: 05-05-2018 End: 03-17-2019 take 1 mL by mouth once daily as needed for gastroesophageal reflux disease Mylanta Discontinued 30 ML PO Daily as needed for gerd May 05, 2018 12:00am March 17, 2019 4:53pm Start: 05-05-2018 End: 03-17-2019 take 1 mL by mouth once daily Mylanta Discontinued 30 ML PO Daily May 05, 2018 12:00am March 17, 2019 4:53pm Start: 05-05-2018 End: 03-17-2019 take 1 mL by mouth once daily Mylanta Discontinued 30 ML PO Daily May 05, 2018 1:00am March 17, 2019 5:53pm amitriptyline hydrochloride 25 mg oral tablet (6 sources) Tricyclic Antidepressant Start: 05-10-2023 End: 08-08-2023 take 1 tablet by mouth once daily at bedtime amitriptyline (ELAVIL) 25 mg tablet Take 1 tablet by mouth daily at bedtime. 30 tablet 2 05/10/2023 08/05/2023 Discontinued (Course of therapy completed) Comment on above: Take 1 tablet by chay th daily at bedtime. amoxicillin 500 mg oral tablet (20 sources) Penicillin-class Antibacterial Start: 07-16-2024 End: 08-13-2024 take 1 tablet by mouth every twelve hours Amoxicillin 500 mg tablet Discontinued 500 MG PO Every 12 hours 42 July 16, 2024 12:00am August 13, 2024 2:45pm Start: 07-16-2023 End: 07-23-2023 take 1 tablet by mouth twice daily Amoxicillin 500 mg tablet Discontinued 500 MG PO Twice daily 25 02July 16, 2023 1:00am July 23, 2023 9:03am amoxicillin 875 mg / clavulanate 125 mg oral tablet (20 sources) Penicillin-class Antibacterial Start: 07-16-2024 End: 08-13-2024 take 1 tablet by mouth twice daily Amoxicillin-Pot Clavulanate 875-125 mg tablet Discontinued 1 TAB PO Twice daily 25 02July 30, 2024 12:00am August 13, 2024 2:45pm Start: 05-19-2024 End: 07-05-2024 take 1 tablet by mouth twice daily Amoxicillin-Pot Clavulanate 875-125 mg tablet Discontinued 1 TAB PO Twice daily 25 02May 19, 2024 1:00am July 05, 2024 2:57pm Start: 04-06-2024 End: 07-10-2024 take 1 tablet by mouth in the morning amoxicillin-clavulanate (Augmentin) 875-125 MG tablet Take 875 mg by mouth in the morning and 875 mg before bedtime. 04/06/2024 07/10/2024 Discontinued (Other) Start: 04-06-2024 End: 04-16-2024 take 1 tablet by mouth twice daily Amoxicillin-Pot Clavulanate 875-125 mg tablet Discontinued 1 TAB PO Twice daily 25 02April 06, 2024 1:00am April 16, 2024 11:17am Start: 07-20-2023 End: 09-02-2023 take 1 tablet by mouth twice daily Amoxicillin-Pot Clavulanate 875-125 mg tablet Discontinued 1 TAB PO Twice daily 25 02July 20, 2023 12:00am September 02, 2023 4:54pm Start: 03-31-2021 take 1 tablet by chay th every twelve hours Amoxicillin-Pot Clavulanate 500-125 MG 1 tablet Orally every 12 hrs for 7 day(s) Mar, Active amylase 955690 unt / lipase 76476 unt / protease [id number] unt delayed release oral capsule (20 sources) Start: 08-01-2022 End: 05-10-2023 alrufj-mqcqcoku-aiqrdph (CRE ON 12) 12,000-38,000 -60,000 unit delayed release capsule Indications: Exocrine pancreatic insufficiency Take As Directed by Physician. 250 capsule 3 08/03/2022 05/10/2023 Discontinued (Course of therapy completed) Start: 02-19-2022 End: 08-05-2023 take 1 capsule by mouth four times daily gumffj-dcljglhj-pupjrot (CREON) 36,000-114,000- 180,000 unit delayed release capsule Indications: Malignant carcinoid tumor of stomach (HCC) Take 1 capsule by mouth four times daily. 360 capsule 3 08/03/2022 08/05/2023 Discontinued Start: 10-02-2020 End: 07-30-2022 Zsqkuv-Qlxrxtsc-Msigqta (Cre on) 12,000-38,000 -60,000 unit Capsule,Delayed Release(Dr/Ec) Discontinued 1 CAP PO As Directed October 02, 2020 12:00am November 28, 2021 3:49pm Start: 09-11-2020 End: 02-11-2022 aytjkj-uthzabdo-cwgaiwb (CRE ON) 36,000-114,000- 180,000 unit delayed release capsule Take by mouth q 8 HR. 0 09/11/2020 02/11/2022 Discontinued (Duplicate Entry) Creon [address] 00 UNIT Oral Capsule Delayed Release Particles one tablet two to three times daily Quantity: 0 Refills: 0 Ordered: 31-Dec-2021 DO Active Comment on above: Pbldmh-Rcdmtjtg-Dbcz ase (Creon) 12,000-38,000 -60,000 unit Capsule,Delayed Release(Dr/Ec) Active 1 CAP PO As Directed October 02, 2020 11:43am Take by mouth q 8 HR . Take 1 capsule by mo uth four times daily. Take 4 capsules by m outh four times daily. Take As Directed by Physician. aspirin 81 mg delayed release oral tablet (20 sources) Platelet Aggregation Inhibitor, Nonsteroidal Anti-inflammatory Drug Start: 2021 End: 2021 take 1 tablet by mouth once daily Aspirin 81 mg Tablet,Delayed Release (Dr/Ec) Discontinued 81 MG PO Daily July 31, 2021 12:00am November 28, 2021 3:49pm atorvastatin 10 mg oral tablet (20 sources) HMG-CoA Reductase Inhibitor Start: 2017 End: 2019 take 1 tablet by mouth once daily at bedtime Atorvastatin 10 mg tablet Discontinued 10 MG PO Daily at bedtime March 01, 2018 12:00am February 05, 2020 1:53pm azithromycin 250 mg oral tablet (20 sources) Macrolide Antimicrobial Start: 2023 End: 2023 Azithromycin (Zithromax Z-Conner) 250 mg tablet Discontinued 0 PO .COMPLEX 6 June 09, 2023 1:00am July 16, 2023 1:22pm For 250 mg dose pack: take 500 mg today (day 1), then 250 mg for 4 days (days 2-5) baclofen 10 mg oral tablet (20 sources) gamma-Aminobutyric Acid-ergic Agonist Start: 2017 End: 2021 take 1 tablet by mouth twice daily Baclofen 10 mg tablet Discontinued 10 MG PO Twice daily May 05, 2018 1:00am November 19, 2019 1:38pm Comment on above: TAKE 1 TABLET BY CHAY TH TWO TIMES A DAY WITH FOOD OR MILK 24 hr buPROPion hydrochloride 150 mg extended release oral tablet (20 sources) Aminoketone Start: 2021 End: 2022 take 1 tablet by mouth once daily Bupropion Hcl 150 mg tablet extended release 24 hr Discontinued 150 MG PO Daily July 31, 2021 12:00am November 28, 2021 3:49pm Comment on above: Take 150 mg by mouth once daily. cefdinir 300 mg oral capsule (20 sources) Cephalosporin Antibacterial Start: 2024 End: 2024 take 1 capsule by mouth twice daily Cefdinir 300 mg capsule Discontinued 300 MG PO Twice daily 25 02May 23, 2024 1:00am July 05, 2024 2:57pm Start: 09-02-2023 End: 09-20-2023 take 1 capsule by mouth every twelve hours Cefdinir 300 mg capsule Discontinued 300 MG PO Every 12 hours 25 02September 02, 2023 12:00am September 20, 2023 11:04am cefuroxime 500 mg oral tablet (20 sources) Cephalosporin Antibacterial Start: 04-24-2024 End: 05-19-2024 take 1 tablet by mouth twice daily Cefuroxime Axetil 500 mg tablet Discontinued 500 MG PO Twice daily 25 02April 24, 2024 1:00am May 19, 2024 2:51pm cholecalciferol 0.025 mg oral capsule (20 sources) Vitamin D Start: 03-01-2018 End: 11-27-2018 Cholecalciferol (Vitamin D3) (Vitamin D3) 1,000 unit Capsule Discontinued 1000 UNIT PO As Directed March 01, 2018 12:00am November 27, 2018 7:53am ciprofloxacin 250 mg oral tablet (6 sources) Quinolone Antimicrobial Start: 02-23-2022 End: 03-02-2022 take 1 tablet by mouth twice daily ciprofloxacin HCl (CIPRO) 250 mg tablet Indications: Gastroenteritis Take 1 tablet by mouth twice daily for 7 days. 14 tablet 0 02/23/2022 03/02/2022 Start: 09-12-2020 take 1 tablet by chay th every twelve hours Cipro 500 MG 1 tablet Orally every 12 hrs for 7 days September, Active Comment on above: Take 1 tablet by chay th twice daily for 7 days. clindamycin 300 mg oral capsule (10 sources) Lincosamide Antibacterial Start: End: take 1 capsule by mouth every eight hours Clindamycin Hcl 300 mg capsule Discontinued 300 MG PO Q8H 21 July 05, 2024 1:00am July 16, 2024 2:13pm dexamethasone 1 mg oral tablet (8 sources) Corticosteroid Start: End: dexAMETHasone (DECADRON) 1 mg tablet Indications: Weight gain Take the table at 11 pm and go for the labs 1 tablet 08/19/2023 12/09/2023 Discontinued Comment on above: Take the table at 11 pm and go for the labs diclofenac sodium 0.01 mg/mg topical gel (3 sources) Nonsteroidal Anti-inflammatory Drug Start: End: apply 2 g topically four times daily diclofenac sodium (VOLTAREN) 1 % topical gel APPLY 2 GRAMS TRANSDERMALLY FOUR TIMES A DAY 0 12/28/2019 02/11/2022 Discontinued Comment on above: APPLY 2 GRAMS TRANSD ERMALLY FOUR TIMES A DAY dicyclomine hydrochloride 20 mg oral tablet (20 sources) Anticholinergic Start: End: Dicyclomine Discontinued MG PO September 02, 2023 12:00am September 22, 2023 2:07pm Start: 08-05-2023 End: 11-03-2023 Dicyclomine 20 mg tablet Discontinued MG PO September 02, 2023 12:00am September 22, 2023 2:07pm Start: 06-13-2023 End: 08-12-2023 take 1 capsule by mouth four times daily as needed for pain dicyclomine (BENTYL) 10 mg capsule Take 1 capsule by mouth 4 times a day as needed for abdominal pain or cramps 06/13/2023 08/05/2023 Discontinued Start: 07-31-2021 End: 11-28-2021 take 1 tablet by mouth three times daily Dicyclomine 20 mg tablet Discontinued 20 MG PO Three times daily July 31, 2021 12:00am November 28, 2021 3:49pm Start: 06-29-2021 End: 02-22-2022 take 1 tablet by mouth four times daily Dicyclomine 20 mg tablet Discontinued 20 MG PO Four times daily February 22, 2022 12:00am February 22, 2022 8:40am Start: 08-15-2020 End: 10-02-2020 take 1 tablet by mouth four times daily Dicyclomine 20 mg tablet Discontinued 20 MG PO Four times daily August 15, 2020 12:00am October 02, 2020 11:48am End: 07-17-2022 take 1 capsule by mouth at bedtime dicyclomine (BENTYL) 10 mg capsule Take 10 mg by mouth before meals and at bedtime. 0 07/17/2022 Discontinued Comment on above: Take 10 mg by mouth before meals and at bedtime. Take 1 capsule by mo [facility] 4 times a day as needed for abdominal pain or cramps Take 1 tablet by chay three times a day. diphenhydrAMINE hydrochloride 50 mg oral capsule (9 sources) Histamine-1 Receptor Antagonist Start: 10-09-19 End: 12-09-19 take 1 capsule by mouth every hour diphenhydrAMINE (BENADRYL) 50 mg capsule Take 1 capsule by mouth as directed for 1 dose. one (1) hour prior to exam. 1 capsule 10/09/2023 12/09/2023 Discontinued Start: 06-25-2021 End: 02-11-2022 take 1 capsule by mouth every hour diphenhydrAMINE (BENADRYL) 50 mg capsule Indications: Malignant carcinoid tumor of stomach (HCC) , Duodenal carcinoid syndrome (HCC) , Neoplasm , Coma with [place] coma scale score not fully reported, at hospital admission (HCC) Take 1 capsule by mouth as directed for 1 dose. one (1) hour prior to exam. 1 capsule 0 06/25/2021 02/11/2022 Discontinued Comment on above: Take 1 capsule by mo [facility] as directed for 1 dose. one (1) hour prior to exam. 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) For CT ABD/PEL W IVCON Routine order Administer, As Directed One Time Only, via Oral, Rectal, both Oral and Rectal, Enteric Tube, Stoma or Indwelling Catheter, Enteric Contrast as designated per enteric contrast guidelines 1 Each 0 03/14/2023 03/15/2023 Active Start: 06-14-2019 End: 02-11-2022 enteric contrast (will be pr ovided with radiology test) For CT CHESTABD/PEL W IVCON Routine order Administer, As Directed One Time Only, via Oral, Rectal, both Oral and Rectal, Enteric Tube, Stoma or Indwelling Catheter, Enteric Contrast as designated per enteric contrast guidelines 1 Each 0 06/14/2019 02/11/2022 Discontinued (Discontinued by another Health Care Provider) Start: 06-14-[address] (will be provided with radiology test) For CT CHESTABD/PEL W IVCON Routine order Administer, As Directed One Time Only, via Oral, Rectal, both Oral and Rectal, Enteric Tube, Stoma or Indwelling Catheter, Enteric Contrast as designated per enteric contrast guidelines 1 Each 0 06/14/2019 Active Start: 12-07-2018 End: 02-11-2022 enteric contrast (will be pr ovided with radiology test) For CT CHESTABD/PEL W IVCON Routine order Administer, As Directed One Time Only, via Oral, Rectal, both Oral and Rectal, Enteric Tube, Stoma or Indwelling Catheter, Enteric Contrast as designated per enteric contrast guidelines 1 Each 0 12/07/2018 02/11/2022 Discontinued (Discontinued by another Health Care Provider) Start: 12-07-[address] (will be provided with radiology test) For CT CHESTABD/PEL W IVCON Routine order Administer, As Directed One Time Only, via Oral, Rectal, both Oral and Rectal, Enteric Tube, Stoma or Indwelling Catheter, Enteric Contrast as designated per enteric contrast guidelines 1 Each 0 12/07/2018 Active Start: 11-16-2018 End: 02-11-2022 enteric contrast (will be pr ovided with radiology test) For CT CHESTABD/PEL W IVCON Routine order Administer, As Directed One Time Only, via Oral, Rectal, both Oral and Rectal, Enteric Tube, Stoma or Indwelling Catheter, Enteric Contrast as designated per enteric contrast guidelines 1 Each 0 11/16/2018 02/11/2022 Discontinued (Discontinued by another Health Care Provider) Start: 11-16-[address] (will be provided with radiology test) For CT CHESTABD/PEL W IVCON Routine order Administer, As Directed One Time Only, via Oral, Rectal, both Oral and Rectal, Enteric Tube, Stoma or Indwelling Catheter, Enteric Contrast as designated per enteric contrast guidelines 1 Each 0 11/16/2018 Active Comment on above: For CT CHESTABD/PEL W IVCON Routine order Administer, As Directed One Time Only, via Oral, Rectal, both Oral and Rectal, Enteric Tube, Stoma or Indwelling Catheter, Enteric Contrast as designated per enteric contrast guidelines For CT ABD/PEL W IVC ON Routine order Administer, As Directed One Time Only, via Oral, Rectal, both Oral and Rectal, Enteric Tube, Stoma or Indwelling Catheter, Enteric Contrast as designated per enteric contrast guidelines estrogens, conjugated (long term) 0.625 mg/ml vaginal cream (3 sources) Estrogen Start: 0 End: 2 PREMARIN vaginal cream USE DIRECTED 0.5 GRAMS VAGINALLY TWICE WEEKLY AT BEDTIME WITH SMALL AMOUNT USED EXTERNALLY 2 TO 3 TIMES WEEKLY 0 09/18/2019 02/11/2022 Discontinued Comment on above: USE DIRECTED 0.5 GRAMS VAGINALLY TWICE WEEKLY AT BEDTIME WITH SMALL AMOUNT USED EXTERNALLY 2 TO 3 TIMES WEEKLY Fish Oil OIL (1 source) Fish Oil OIL 108 0 liquid as directed. Quantity: 0 Refills: 0 Ordered: 31-Dec-2021 DO Active gabapentin 100 mg oral capsule (20 sources) Anti-epileptic Agent Start: End: take 1 capsule by mouth three times daily Gabapentin 100 mg Capsule Discontinued 100 MG PO Three times daily October 02, 2020 12:00am July 31, 2021 7:40am Gabapentin Activ e 12 hr hyoscyamine sulfate 0.375 mg extended release oral tablet (20 sources) Start: 07-16-2024 End: 07-16-2024 take 1 tablet by mouth every twelve hours Hyoscyamine Sulfate 0.375 mg tablet extended release 12 hr Discontinued MG PO July 16, 2024 12:00am July 16, 2024 2:13pm Start: 03-29-2024 take 1 tablet by cahy every twelve hours in the morning hyoscyamine ER (Levbid) 0.375 MG 12 hr tablet Indications: Diarrhea due to drug , Irritable bowel syndrome with both constipation and diarrhea , Gastroparesis , Gastroesophageal reflux disease with esophagitis without hemorrhage Take 1 tablet (375 mcg) by mouth in the morning and 1 tablet (375 mcg) before bedtime. 60 tablet 1 04/16/2024 Active Start: 03-29-2024 End: 06-27-2024 take 1 tablet by mouth twice daily hyoscyamine SR (LEVBID) 0.375 mg 12 hr tablet Take 1 tablet by mouth two times a day. 60 tablet 2 03/29/2024 Active Start: 03-29-2024 take 0.125 mg under the tongue once 0.125 mg, SUBLINGUAL, ONCE, 1 dose, On Sarah 03/29/24 at 1400 Start: 12-31-2022 End: 05-10-2023 take 1 tablet by mouth every twelve hours hyoscyamine SR (LEVBID) 0.375 mg 12 hr tablet Indications: Other irritable bowel syndrome Take 1 tablet by mouth every 12 hours. 60 tablet 2 12/31/2022 05/10/2023 Discontinued (Course of therapy completed) Start: 10-02-2020 End: 07-31-2021 take 1 tablet by mouth twice daily Hyoscyamine Sulfate 0.375 mg tablet extended release 12 hr Discontinued 0.375 MG PO Twice daily October 02, 2020 12:00am July 31, 2021 7:40am Start: 09-03-2020 take 1 tablet by chay th every twelve hours Levbid 0.375 MG 1 tablet Orally every 12 hrs for 30 day(s) Aug, Active Start: 11-22-2018 End: 03-17-2019 Hyoscyamine Sulfate 0.125 mg Tablet, Sublingual Discontinued 0.125 MG SUBLINGUAL 2-4 TIMES PER DAY as needed for Pain November 22, 2018 12:00am March 17, 2019 5:53pm Comment on above: Take 1 tablet by chay th every 12 hours. L.acid/B.bifidum/B.ani mal/FOS (PROBIOTIC COMPLEX ORAL) (20 sources) End: 12-09-2023 L.acid/B.bifidum/B.animal/ FOS (PROBIOTIC COMPLEX ORAL) Take by mouth. 12/09/2023 Discontinued End: 12-09-2023 L.acid/B.bifidum/B.animal/FO S (PROBIOTIC COMPLEX ORAL) Take by mouth. 0 12/09/2023 Discontinued L.acid/B.bifidum /B.animal/FOS (PROBIOTIC COMPLEX ORAL) Take by mouth. 0 Active Comment on above: Take by mouth. Lactobacillus Combination No.4 (Probiotic) 3 billion cell Capsule (20 sources) Start: 0 End: 2 take 3 capsules by mouth once daily Lactobacillus Combination No.4 (Probiotic) 3 billion cell Capsule Discontinued 3 MMU CELLS PO Daily November 18, 2019 11:00pm November 28, 2021 2:49pm Start: 11-19-2019 End: 11-28-2021 take 3 capsules by mouth once daily Lactobacillus Combination No.4 (Probiotic) 3 billion cell Capsule Discontinued 3 MMU CELLS PO Daily November 19, 2019 12:00am November 28, 2021 3:49pm lidocaine 0.05 mg/mg medicated patch (20 sources) Antiarrhythmic, Amide Local Anesthetic Start: 02-27-2021 End: 07-31-2021 apply 1 dose topically every twenty-four hours Lidocaine 5 % adhesive patch,medicated Discontinued 1 PATCH TOPICAL Q24H 15 February 27, 2021 12:00am July 31, 2021 7:40am leave on most painful area for up to 12 hrs magnesium oxide 400 mg oral tablet (20 sources) Start: 07-31-2021 End: 09-02-2023 take 1 tablet by mouth once daily Magnesium Oxide 400 mg (241.3 mg magnesium) tablet Discontinued 400 MG PO Daily July 31, 2021 12:00am September 02, 2023 4:54pm Start: 06-18-2021 End: 05-10-2023 take 1 tablet by mouth twice daily magnesium oxide (MAG-OX) 400 mg (241.3 mg magnesium) tablet Take 1 tablet by mouth twice daily. 06/18/2021 05/10/2023 Discontinued (Course of therapy completed) magnesium oxide (Mag-Ox) 400 mg tablet 400 mg Active take 1 tablet by chay th once daily Magnesium Oxide 400 MG Oral Tablet TAKE 1 TABLET DAILY. Quantity: 0 Refills: 0 Ordered: 21-Apr-2021 DO Active Comment on above: Take 1 tablet by chay th twice daily. melatonin 10 mg oral tablet (20 sources) Start: 10-02-2020 End: 11-28-2021 take 1 tablet by mouth at bedtime as needed for sleep Melatonin 10 mg Tablet Discontinued 10 MG PO Bedtime as needed for Sleep October 02, 2020 12:00am November 28, 2021 3:49pm Start: 03-01-2018 End: 11-20-2018 Melatonin (Melatin) 3 mg Tab let Discontinued 10 MG PO Bedtime as needed for Sleep March 01, 2018 12:00am November 20, 2018 12:16pm Melatonin 10 MG as directed Orally Active End: 02-11-2022 melatonin 5 mg tablet Take 5 mg by mouth. 0 02/11/2022 Discontinued Comment on above: Take 5 mg by mouth. metFORMIN hydrochloride 500 mg oral tablet (20 sources) Biguanide Start: End: take 1 tablet by mouth once daily Metformin 500 mg tablet Discontinued 500 MG PO Daily December 09, 2021 12:00am July 16, 2023 1:21pm Start: 12-09-2021 take 500 mg by mouth once laura y Metformin Active 500 MG PO Daily December 09, 2021 12:00am Start: 12-04-2021 take 1 tablet by chay th once daily metFORMIN HCl - 500 MG Oral Tablet TAKE 1 TABLET BY MOUTH EVERY DAY WITH SUPPER Quantity: 30 Refills: 0 Ordered: 29-Dec-2021 DO Start : 04-Dec-2021 Active methylPREDNISolone 4 mg oral tablet (15 sources) Corticosteroid Start: 05-19-2024 End: 05-19-2024 take 1 tablet by mouth once Methylprednisolone (Medrol (Conner)) 4 mg tablets,dose pack Discontinued 0 PO per package directions May 19, 2024 1:00am May 19, 2024 3:19pm PO PER PKG DIR for 6 days Multivitamin Capsule (16 sources) Start: 11-19-2019 End: 02-05-2020 take 1 capsule by mouth once daily Multivitamin Capsule Discontinued 1 CAP PO Daily November 19, 2019 12:00am February 05, 2020 1:53pm Start: 11-19-2019 End: 02-05-2020 take 1 capsule by mouth once daily Multivitamin Capsule Discontinued 1 CAP PO Daily November 18, 2019 11:00pm February 05, 2020 12:53pm Multivitamin preparation (18 sources) Start: 11-19-2019 End: 02-05-2020 take 1 capsule by mouth once daily Multivitamin Discontinued 1 CAP PO Daily November 18, 2019 11:00pm February 05, 2020 12:53pm Start: 11-19-2019 End: 02-05-2020 take 1 capsule by mouth once daily Multivitamin Discontinued 1 CAP PO Daily November 19, 2019 12:00am February 05, 2020 1:53pm naproxen 500 mg oral tablet (20 sources) Nonsteroidal Anti-inflammatory Drug Start: 06-09-2023 End: 07-16-2023 take 1 tablet by mouth twice daily as needed for pain Naproxen (Naprosyn) 500 mg tablet Discontinued 500 MG PO Twice daily as needed for pain June 09, 2023 1:00am July 16, 2023 1:21pm nitrofurantoin, macrocrystals 25 mg / nitrofurantoin, monohydrate 75 mg oral capsule (9 sources) Nitrofuran Antibacterial Start: 07-10-2024 End: 07-30-2024 take 1 capsule by mouth twice daily at mealtime Nitrofurantoin Monohyd/M-Cryst (Macrobid) 100 mg capsule Discontinued 100 MG PO Twice daily 14 July 10, 2024 1:00am July 30, 2024 3:00pm must administer with a meal/food OMEGA-3 ACID ETHYL ESTERS ORAL (12 sources) End: 08-23-2023 OMEGA-3 ACID ETHYL ESTERS ORAL Take 2 capsules by mouth. 08/23/2023 Discontinued End: 08-23-2023 OMEGA-3 ACID ETHYL ESTERS OR AL Take 2 capsules by mouth. 0 08/23/2023 Discontinued OMEGA-3 ACID ETH YL ESTERS ORAL Take 2 capsules by mouth. 0 Active Comment on above: Take 2 capsules by m outh. Ondansetron 4 mg film (16 sources) Start: 9 End: 9 take 4 mg by mouth three times daily as needed for nausea and vomiting Ondansetron 4 mg film Discontinued 4 MG PO Three times daily as needed for nausea and vomiting May 18, 2018 1:00am May 22, 2018 1:00am May 23, 2018 1:02am Start: 05-18-2018 End: 05-23-2018 take 4 mg by mouth three times daily as needed for nausea and vomiting Ondansetron 4 mg film Discontinued 4 MG PO Three times daily as needed for nausea and vomiting May 18, 2018 12:00am May 22, 2018 12:00am May 23, 2018 12:02am pantoprazole 40 mg delayed release oral tablet (20 sources) Proton Pump Inhibitor Start: 04-02-2024 End: 07-10-2024 take 1 tablet by mouth once daily Pantoprazole 40 mg tablet,delayed release (DR/EC) Discontinued 40 MG PO Daily April 06, 2024 1:00am April 16, 2024 11:17am perflutren lipid microspheres 1.3 mL in NaCl (PF) 0.9% 10 mL injection (DEFINITY) (2 sources) Start: 05-29-2024 End: 05-29-2024 perflutren lipid microspheres 1.3 mL in NaCl (PF) 0.9% 10 mL injection (DEFINITY) Start: 05-29-2024 End: 05-29-2024 take 1 dose intravenously once as needed INTRAVENOUS, DIRECTED NEEDED, 1 dose, Starting on Tue05/29/24 at 1003, Until 1/21/25 at 1004, Per Protocol - for use during ECHO procedure only, If no IV access, insert saline lock prior to administering contrast. Discontinue saline lock post exam. If patient has central line or IVAD, may access for administration according to line specific nursing protocol. Once exam is complete, flush line and de-access per line specific nursing protocol.Dilute 1.3 ml of Definity with 8.7 ml of preservative-free saline., Cardiac Procedure Med Orders predniSONE 20 mg oral tablet (20 sources) Start: 05-23-2024 End: 07-05-2024 Prednisone 20 mg tablet Discontinued 0 PO Daily May 23, 2024 1:00am July 05, 2024 2:58pm Take 2 pills x3 days, 1 pills x3 days, 1/2 pill x 3 days Start: 03-08-2024 End: 03-17-2024 predniSONE (Deltasone) 20 MG tablet Indications: Cervical radiculopathy Take 3 tabs (60mg) daily for 3 days, then take 2 tabs (40mg) daily for 3 days, then take 1 tab (20mg) daily for 3 days. 18 tablet 03/08/2024 03/17/2024 Active Start: 10-09-2023 End: 10-10-2023 predniSONE (DELTASONE) 50 mg Take 1 tablet by mouth every 6 hours for 3 doses. For prevention of contrast allergy given 13 hrs, 7 hrs, and 1 hr prior to exam. 3 tablet 0 10/09/2023 10/10/2023 Active Start: 07-30-2023 End: 08-23-2023 predniSONE (DELTASONE) 50 mg Indications: Malignant carcinoid tumor of duodenum (HCC) Take 1 tablet by mouth as directed. Take 1 tablet @ 24H prior, 12H prior, 6H Prior and 1H prior - to CT scan for dye allergy. 4 tablet 0 07/30/2023 08/23/2023 Discontinued Start: 06-09-2023 End: 07-16-2023 take 2 tablets by mouth once daily Prednisone 20 mg tablet Discontinued 40 MG PO Daily 8 June 09, 2023 1:00am July 16, 2023 1:21pm Start: 06-09-2023 End: 07-16-2023 take 40 mg by mouth once daily Prednisone Discontinued 40 MG PO Daily 8 June 09, 2023 1:00am July 16, 2023 1:21pm Start: 03-14-2023 End: 05-10-2023 predniSONE (DELTASONE) 50 mg Indications: Malignant carcinoid tumor of duodenum (HCC) Take 1 tablet by mouth as directed. Take 1 tablet @ 24H prior, 12H prior, 6H Prior and 1H prior - to CT scan for dye allergy. 4 tablet 03/14/2023 05/10/2023 Discontinued (Course of therapy completed) Start: 06-25-2021 End: 02-11-2022 predniSONE (DELTASONE) 50 mg Indications: Malignant carcinoid tumor of stomach (HCC) Take first tablet by mouth 13 hours prior to exam time, take second tablet 7 hours prior to exam time, and take third tablet 1 hour prior to exam time. 3 tablet 0 06/25/2021 02/11/2022 Discontinued Comment on above: Take first tablet by mouth 13 hours prior to exam time, take second tablet 7 hours prior to exam time, and take third tablet 1 hour prior to exam time. Take 1 tablet by [facility] as directed. Take 1 tablet @ 24H prior, 12H prior, 6H Prior and 1H prior - to CT scan for dye allergy. promethazine hydrochloride 25 mg oral tablet (20 sources) Phenothiazine Start: End: take 1 tablet by mouth every six hours as needed for nausea Promethazine 25 mg Tablet Discontinued 25 MG PO Q6H as needed for Nausea August 15, 2020 12:00am October 02, 2020 11:48am 0.25 mg, 0.5 mg dose 1.5 ml semaglutide 1.34 mg/ml pen injector (2 sources) Start: inject 0.25 mg by subcutaneous injection every week, then inject 0.5 mg by subcutaneous injection every week Ozempic (0.25 or 0.5 MG/DOSE) 2 MG/1.5ML Subcutaneous Solution Pen-injector INJECT 0.25 MG SUBCUTANEOUSLY ONCE A WEEK FOR 4 WEEKS, THEN INCREASE TO 0.5 MG ONCE A WEEK Quantity: 2 Refills: 0 Ordered: 18-May-2022 DO Start : 06-Apr-2022 Active simethicone 80 mg chewable tablet (17 sources) Start: End: 03-11-2 023 take 1 tablet by mouth every six hours as needed simethicone, chewable (MYLICON) 80 mg chewable tablet Take 1 tablet by mouth every 6 hours as needed for up to 240 doses. 120 tablet 1 08/04/2020 07/17/2022 Discontinued Comment on above: Take 1 tablet by chay th every 6 hours as needed for up to 240 doses. sucralfate 1000 mg oral tablet (20 sources) Aluminum Complex Start: 025 End: take 1 tablet by mouth every four hours Sucralfate 1 gram tablet Discontinued 1 GM PO Every 4 hours May 17, 2024 1:00am July 05, 2024 2:58pm Start: 04-26-2024 take 1 tablet by chay th three times daily sucralfate (CARAFATE) 1 gram tablet Take 1 tablet by mouth three times a day. 90 tablet 3 04/26/2024 Active Start: 02-23-2022 End: 03-25-2022 take 1 tablet by mouth four times daily sucralfate (CARAFATE) 1 gram tablet Indications: Gastroenteritis Take 1 tablet by mouth four times daily. 120 tablet 0 02/23/2022 03/25/2022 Comment on above: Take 1 tablet by chay th four times daily. Sucralfate (Carafate) 100 mg/mL suspension (20 sources) Start: 02-22-2022 End: 02-22-2022 take 1 mL by mouth four times daily Sucralfate (Carafate) 100 mg/mL suspension Discontinued 5 ML PO Four times daily February 22, 2022 12:00am February 22, 2022 8:40am swish in mouth and swallow; use after food/drink Start: 02-22-2022 End: 02-22-2022 take 1 mL by mouth four times daily Sucralfate (Carafate) 100 mg/mL suspension Discontinued 5 ML PO Four times daily February 21, 2022 11:00pm February 22, 2022 7:40am swish in mouth and swallow; use after food/drink tamsulosin hydrochloride 0.4 mg oral capsule (18 sources) alpha-Adrenergic Tristan Start: 01-23-2024 End: 04-06-2024 take 1 capsule by mouth once daily Tamsulosin (Flomax) 0.4 mg capsule Discontinued 0.4 MG PO Daily January 23, 2024 12:00am April 06, 2024 12:30pm temazepam 15 mg oral capsule (3 sources) Benzodiazepine Start: 01-03-2020 End: 02-11-2022 temazepam (RESTORIL) 15 mg terconazole 4 mg/ml vaginal cream (3 sources) Azole Antifungal Start: 12-18-2019 End: 02-11-2022 terconazole (TERAZOL 7) 0.4 % vaginal cream INSERT APPLICATORFUL VAGINALLY AT BEDTIME ONCE A DAY FOR 7 DAYS 0 12/18/2019 02/11/2022 Discontinued Comment on above: INSERT APPLICATORFUL VAGINALLY AT BEDTIME ONCE A DAY FOR 7 DAYS topiramate 50 mg oral tablet (20 sources) Start: 12-09-2021 End: 02-22-2022 take 1 tablet by mouth once daily Topiramate 50 mg tablet Discontinued 50 MG PO Daily December 09, 2021 12:00am February 22, 2022 8:40am Start: 12-09-2021 take 50 mg by mouth once daily Topiramate Active 50 MG PO Daily December 09, 2021 12:00am Start: 12-04-2021 take 1 tablet by chay th in the morning Topiramate 50 MG Oral Tablet TAKE 1 TABLET BY MOUTH IN THE MORNING Quantity: 30 Refills: 0 Ordered: 29-Dec-2021 DO Start : 04-Dec-2021 Active Unspecified Medication (2 sources) Unspecified Medication C-pap Quantity: 0 Refills: 0 Ordered: 08-Jun-2022 DO Active valACYclovir 500 mg oral tablet (20 sources) Herpesvirus Nucleoside Analog DNA Polymerase Inhibitor, Herpes Simplex Virus Nucleoside Analog DNA Polymerase Inhibitor, Herpes Zoster Virus Nucleoside Analog DNA Polymerase Inhibitor Start: 9 End: take 1 tablet by mouth once daily Valacyclovir 500 mg tablet Discontinued 500 MG PO Daily April 23, 2019 1:00am September 22, 2023 2:07pm Valtrex TABS ARIELLE E 1 TABLET DAILY. Quantity: 0 Refills: 0 Ordered: 20-Oct-2021 DO Active Comment on above: 500 mg. 24 hr venlafaxine 75 mg extended release oral capsule (20 sources) Serotonin and Norepinephrine Reuptake Inhibitor Start: 05-05-20 End: 11-21-19 take 1 capsule by mouth once daily Venlafaxine (Effexor Xr) 75 mg Capsule,Extended Release 24hr Discontinued 75 MG PO Daily May 05, 2018 1:00am November 20, 2018 12:16pm vitamin b12 1 mg oral tablet (20 sources) Vitamin B12 Start: 03-01-20 End: 11-21-19 take 1 tablet by mouth once daily Cyanocobalamin (Vitamin B-12) (Vitamin B-12) 1,000 mcg Tablet Discontinued 1000 MCG PO Daily March 01, 2018 12:00am November 20, 2018 12:18pm Problems Active Problems Problem Classification Problem Date Documented Date Episodic/Chronic Abdominal pain (20 sources) Finding of sensation of abdomen; Translations: [Unspecified abdominal pain] Onset: 2 Resolved: 3 09-11-2020 Episodic Comment on above: Problem List clean-u p per request of Phys. EHR Cmte Administrative/social admission (20 sources) Follow-up status; Translations: [Other specified counseling] Onset: 5 06-08-2024 Episodic Anxiety disorders (20 sources) Anxiety; Translations: [Anxiety disorder, unspecified] Onset: 3 03-17-2019 Chronic Comment on above: Problem List clean-u p per request of Phys. EHR Cmte Biliary tract disease (2 sources) Gallstone 07-24-2019 Episodic Cancer of other GI organs; peritoneum (20 sources) Malignant carcinoid tumor of small intestine; Translations: [Malignant carcinoid tumor of the duodenum] Onset: 3 03-14-2023 Chronic Cancer of other GI organs; peritoneum (2 sources) History of malignant neoplasm of digestive organ; Translations: [Personal history of malignant neoplasm of unspecified digestive organ] 03-08-2024 Episodic Cancer; other and unspecified primary (7 sources) Malignant neoplasm of gastrointestinal tract; Translations: [Malignant carcinoid tumor of the foregut, unspecified] Chronic Cancer; other and unspecified primary (1 source) Malignant carcinoid tumor of the foregut, unspecified; Translations: [Malignant carcinoid tumor of foregut (HCC)] Onset: 4 Chronic Cancer; other and unspecified primary (20 sources) Personal history of benign carcinoid tumor; Translations: [History of benign carcinoid neoplasm of gastrointestinal tract] Onset: 2 03-02-2018 Episodic Cancer; other and unspecified primary (8 sources) History of malignant carcinoid tumor of stomach; Translations: [Personal history of malignant carcinoid tumor of stomach] Episodic Cancer; other and unspecified primary (20 sources) H/O: gastrointestinal disease; Translations: [Personal history of benign carcinoid tumor] Onset: 2 12-29-2022 Episodic Comment on above: Problem List clean-u p per request of Phys. EHR Cmte Cardiac dysrhythmias (20 sources) Palpitations; Translations: [Palpitations] Onset: 3 03-17-2019 Episodic Comment on above: Problem List clean-u p per request of Phys. EHR Cmte Conduction disorders (7 sources) Patient encounter status; Translations: [Fitting and adjustment of other cardiac device] Onset: 3 Chronic Coronary atherosclerosis and other heart disease (15 sources) Calcification of coronary artery; Translations: [Coronary atherosclerosis of unspecified type of vessel, [place] or graft] Chronic Disorders of lipid metabolism (20 sources) Hyperlipidemia; Translations: [Other and unspecified hyperlipidemia] Onset: 3 10-11-2022 Chronic Diverticulosis and diverticulitis (20 sources) Diverticular disease of colon; Translations: [Diverticulosis of large intestine without perforation or abscess without bleeding] Onset: 3 01-20-2023 Chronic Esophageal disorders (20 sources) Gastroesophageal reflux disease; Translations: [Gastro-esophageal reflux disease without esophagitis] Onset: 3 03-02-2018 Chronic Comment on above: Problem List clean-u p per request of Phys. EHR Cmte Fever of unknown origin (8 sources) Fever; Translations: [Fever, unspecified] Onset: 5 07-19-2024 Episodic Gastroduodenal ulcer (except hemorrhage) (20 sources) Peptic ulcer; Translations: [Peptic ulcer, site unspecified, unspecified as acute or chronic, without hemorrhage or perforation] Onset: 2 Chronic Genitourinary symptoms and ill-defined conditions (3 sources) Stress incontinence (female) (male); Translations: [Female stress incontinence] Onset: 4 Chronic Genitourinary symptoms and ill-defined conditions (20 sources) Blood in urine; Translations: [Hematuria, unspecified] Onset: 5 11-25-2022 Episodic Inflammatory diseases of female pelvic organs (3 sources) Vaginitis; Translations: [Acute vaginitis] 08-30-2019 Episodic Malaise and fatigue (20 sources) Malaise and fatigue; Translations: [Other malaise] Onset: 5 12-09-2021 Episodic Comment on above: Problem List clean-u p per request of Phys. EHR Cmte Mood disorders (20 sources) Severe recurrent major depression without psychotic features; Translations: [Major depressive disorder, recurrent severe without psychotic features] Onset: 3 09-25-2022 Chronic Osteoarthritis (20 sources) Degenerative joint disease involving multiple joints; Translations: [Polyosteoarthritis, unspecified] Onset: 3 10-11-2022 Chronic Other and unspecified benign neoplasm (20 sources) History of polyp of colon; Translations: [Personal history of colonic polyps] 11-27-2018 Episodic Comment on above: Problem List clean-u p per request of Phys. EHR Cmte Other and unspecified benign neoplasm (15 sources) Carcinoid tumor; Translations: [Benign carcinoid tumor of unknown primary site] Episodic Other and unspecified benign neoplasm (20 sources) Carcinoid tumor of stomach; Translations: [Benign carcinoid tumor of the stomach] Resolved: 2 04-18-2017 Episodic Other and unspecified benign neoplasm (2 sources) Benign carcinoid tumor of stomach; Translations: [Benign carcinoid tumor of the stomach] Episodic Other and unspecified benign neoplasm (2 sources) Neoplasm of gastrointestinal tract; Translations: [Benign carcinoid tumors of other sites] 03-16-2024 Episodic Other and unspecified benign neoplasm (2 sources) Melanocytic nevus of trunk; Translations: [Melanocytic nevi of trunk] 03-27-2024 Episodic Other and unspecified benign neoplasm (2 sources) Melanocytic nevus of upper limb; Translations: [Melanocytic nevi of unspecified upper limb, including shoulder] 03-27-2024 Episodic Other and unspecified benign neoplasm (2 sources) Dermatofibroma; Translations: [Other benign neoplasm of skin, unspecified] 03-27-2024 Episodic Other and unspecified benign neoplasm (16 sources) Neuroendocrine neoplasm of stomach; Translations: [Benign carcinoid tumor of the stomach] 04-20-2023 Episodic Comment on above: Problem List clean-u p per request of Phys. EHR Cmte Other bone disease and musculoskeletal deformities (1 source) Bone pain; Translations: [Other specified disorders of bone, unspecified site] 04-27-2024 Episodic Other circulatory disease (15 sources) History of cardiovascular surgery; Translations: [Other specified cardiac device in situ] Chronic Other circulatory disease (1 source) Presence of other cardiac implants and grafts; Translations: [Presence of other cardiac implants and grafts] Onset: 3 Chronic Other circulatory disease (2 sources) Spider nevus; Translations: [Nevus, non-neoplastic] 03-27-2024 Episodic Other connective tissue disease (2 sources) Pelvic floor dysfunction; Translations: [Other specified disorders of muscle] 03-20-2024 Episodic Other connective tissue disease (13 sources) Pelvic floor tension; Translations: [Other specified disorders of muscle] Onset: 5 05-11-2024 Episodic Other connective tissue disease (2 sources) Other specified disorders of muscle; Translations: [Pelvic floor tension] Onset: 5 Episodic Other diseases of bladder and urethra (2 sources) Urethral stricture; Translations: [Other urethral stricture, female] Onset: 4 Episodic Other diseases of kidney and ureters (1 source) Urinary tract obstruction; Translations: [Hydronephrosis with renal and ureteral calculous obstruction] Onset: 4 Episodic Other endocrine disorders (1 source) Multiple system malformation syndrome; 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 EHR Cmte Other gastrointestinal disorders (20 sources) Irritable bowel syndrome; Translations: [Mixed irritable bowel syndrome] Onset: 3 06-13-2023 Chronic Other gastrointestinal disorders (20 sources) Dysphagia; Translations: [Dysphagia, pharyngoesophageal phase] 03-02-2018 Episodic Comment on above: Problem List clean-u p per request of Phys. EHR Cmte Other gastrointestinal disorders (20 sources) Diarrhea; Translations: [Diarrhea, unspecified] 09-11-2020 Episodic Comment on above: Problem List clean-u p per request of Phys. EHR Cmte Other gastrointestinal disorders (8 sources) Pharyngeal dysphagia; Translations: [Dysphagia, pharyngeal phase] Episodic Other gastrointestinal disorders (20 sources) Constipation; Translations: [Constipation, unspecified] 06-17-2023 Episodic Other gastrointestinal disorders (20 sources) Stool color abnormal; Translations: [Other fecal abnormalities] 09-11-2020 Episodic Comment on above: Problem List clean-u p per request of Phys. EHR Cmte Other gastrointestinal disorders (2 sources) Altered bowel function; Translations: [Change in bowel habit] 12-03-2022 Episodic Other gastrointestinal disorders (1 source) Change in bowel habit; Translations: [Change in bowel habits] Onset: 3 Episodic Other gastrointestinal disorders (1 source) Small bowel bacterial overgrowth syndrome; Translations: [Small intestinal bacterial overgrowth (SIBO)] 12-27-2023 Episodic Other gastrointestinal disorders (2 sources) Constipation alternates with diarrhea; Translations: [Other specified symptoms and signs involving the digestive system and abdomen] 03-20-2024 Episodic Other gastrointestinal disorders (2 sources) Diarrhea due to drug; Translations: [Toxic gastroenteritis and colitis] 04-16-2024 Episodic Other gastrointestinal disorders (2 sources) Swollen abdomen; Translations: [Intra-abdominal and pelvic swelling, mass and lump, unspecified site] 04-27-2024 Episodic Other gastrointestinal disorders (8 sources) Abdominal distension (gaseous); Translations: [Flatulence, eructation, and gas pain] Onset: 4 Episodic Other gastrointestinal disorders (1 source) Intra-abdominal and pelvic swelling, mass and lump, unspecified site; Translations: [Abdominal swelling] Onset: 5 Episodic Other gastrointestinal disorders (5 sources) Constipation, unspecified; Translations: [Constipation, unspecified] Onset: 4 08-13-2024 Episodic Other infections; including parasitic (2 sources) Recurrent infectious disease; Translations: [Unspecified infectious disease] 04-27-2024 Episodic Other infections; including parasitic (1 source) Unspecified infectious disease; Translations: [Recurrent infections] Onset: 5 Episodic Other injuries and conditions due to external causes (1 source) Angioedema; Translations: [Angioneurotic edema, initial encounter] 05-15-2024 Episodic Other injuries and conditions due to external causes (1 source) Angioneurotic edema, initial encounter; Translations: [Angioedema, initial encounter] Onset: 5 Episodic Other lower respiratory disease (1 source) Interstitial lung disease; Translations: [Interstitial pulmonary disease, unspecified] 07-20-2023 Chronic Other lower respiratory disease (19 sources) Dyspnea; Translations: [Other respiratory abnormalities] Onset: 5 06-08-2024 Episodic Other lower respiratory disease (1 source) Dyspnea, unspecified; Translations: [Dyspnea, unspecified] Onset: 3 Episodic Other lower respiratory disease (3 sources) Nodule of lung; Translations: [Solitary pulmonary nodule] 07-01-2023 Episodic Other lower respiratory disease (20 sources) Respiratory tract infection; Translations: [Other specified respiratory disorders] 09-22-2023 Episodic Other lower respiratory disease (20 sources) Multiple nodules of lung; Translations: [Other nonspecific abnormal finding of lung field] 09-22-2023 Episodic Other lower respiratory disease (14 sources) Other specified respiratory disorders; Translations: [Other diseases of respiratory system, not elsewhere classified] 09-22-2023 Episodic Other lower respiratory disease (2 sources) Shortness of breath; Translations: [Shortness of breath] Onset: 5 Episodic Other lower respiratory disease (7 sources) Respiratory tract congestion; Translations: [Other specified respiratory disorders] 07-19-2024 Episodic Other lower respiratory disease (1 source) Hemoptysis; Translations: [Hemoptysis] 09-23-2024 Episodic Other non-traumatic joint disorders (4 sources) Multiple joint pain; Translations: [Pain in unspecified joint] 03-08-2024 Episodic Other nutritional; endocrine; and metabolic disorders (20 sources) Obesity; Translations: [Obesity, unspecified] 09-22-2023 Chronic Other nutritional; endocrine; and metabolic disorders (20 sources) Body mass index 30+ - obesity; Translations: [Body Mass Index 33.0-33.9, adult] Onset: 2 02-25-2022 Chronic Other nutritional; endocrine; and metabolic disorders (20 sources) Obese class I; Translations: [Obesity, unspecified] Onset: 3 10-11-2022 Chronic Other nutritional; endocrine; and metabolic disorders (3 sources) Body mass index (BMI) 37.0-37.9, adult; Translations: [Body Mass Index 37.0-37.9, adult] 09-22-2023 Chronic Other nutritional; endocrine; and metabolic disorders (14 sources) Obesity, unspecified; Translations: [Obesity, unspecified] 09-22-2023 Chronic Other nutritional; endocrine; and metabolic disorders (2 sources) Body mass index (BMI) 36.0-36.9, adult; Translations: [Body mass index (BMI) 36.0-36.9, adult] Onset: 5 Chronic Other nutritional; endocrine; and metabolic disorders (8 sources) Body mass index 25-29 - overweight; Translations: [Body mass index (BMI) 29.0-29.9, adult] Episodic Other nutritional; endocrine; and metabolic disorders (1 source) Weight gain; Translations: [Abnormal weight gain] 08-19-2023 Episodic Other skin disorders (2 sources) Seborrheic keratosis; Translations: [Other seborrheic keratosis] 03-27-2024 Episodic Other skin disorders (2 sources) Pilar cyst of scalp; Translations: [Pilar cyst] 03-27-2024 Episodic Other skin disorders (2 sources) Lentiginosis; Translations: [Other melanin hyperpigmentation] 03-27-2024 Episodic Other upper respiratory disease (2 sources) Allergic rhinitis, unspecified; Translations: [Allergic rhinitis, cause unspecified] 09-20-2023 Chronic Other upper respiratory infections (9 sources) Sinusitis; Translations: [Chronic sinusitis, unspecified] Onset: 1 Resolved: 1 Chronic Other upper respiratory infections (20 sources) Acute pharyngitis, unspecified; Translations: [Pharyngitis] Onset: 1 Resolved: 1 Episodic Peripheral and visceral atherosclerosis (20 sources) Atherosclerosis of aorta; Translations: [Atherosclerosis of aorta] Onset: 4 06-13-2023 Chronic Pneumonia (except that caused by tuberculosis or sexually transmitted disease) (20 sources) Pneumonia; Translations: [Pneumonia, unspecified organism] 06-17-2023 Episodic Residual codes; unclassified (15 sources) Sleep apnea; Translations: [Sleep apnea, unspecified] Onset: 5 06-08-2024 Chronic Residual codes; unclassified (3 sources) Sleep apnea, unspecified; Translations: [Sleep apnea, unspecified] Onset: 2 Resolved: 2 Chronic Residual codes; unclassified (20 sources) Obstructive sleep apnea syndrome; Translations: [Obstructive sleep apnea (adult) (pediatric)] Onset: 2 02-25-2022 Chronic Residual codes; unclassified (3 sources) Obstructive sleep apnea (adult) (pediatric) Chronic Residual codes; unclassified (20 sources) Family history of cancer of colon; Translations: [Family history of malignant neoplasm of digestive organs] Onset: 3 11-27-2018 Episodic Comment on above: Problem List clean-u p per request of Phys. EHR Cmte Residual codes; unclassified (8 sources) Procedure related finding; Translations: [Encounter for cosmetic surgery] Episodic Residual codes; unclassified (1 source) Family history of malignant neoplasm of kidney; Translations: [Family history of malignant neoplasm of kidney] 03-20-2024 Episodic Residual codes; unclassified (1 source) FH: Thrombosis; Translations: [Family history of ischemic heart disease and other diseases of the circulatory system] Onset: 5 06-08-2024 Episodic Screening and history of mental health and substance abuse codes (20 sources) Ex-smoker; Translations: [Personal history of tobacco use] Onset: 4 09-22-2023 Episodic Comment on above: 2ppd x 35 years, jamila t 2021 Spondylosis; intervertebral disc disorders; other back problems (20 sources) Pain in cervical spine; Translations: [Cervical disc disorder, unspecified, unspecified cervical region] 04-16-2024 Chronic Sprains and strains (3 sources) Strain of muscle, fascia and tendon at neck level, initial encounter; Translations: [Sprain of neck] 07-30-2024 Episodic Substance-related disorders (2 sources) Smoker 07-24-2019 Chronic Syncope (18 sources) Syncope; Translations: [Syncope and collapse] Onset: 3 Episodic Thyroid disorders (8 sources) Thyroid nodule; Translations: [Nontoxic single thyroid nodule] Onset: 4 Chronic Unclassified (2 sources) Obstructive hydronephrosis 01-25-2024 Unclassified (2 sources) First encounter by subject 06-08-2024 Viral infection (20 sources) Disease caused by 2019-nCoV; Translations: [Other specified viral infection] 05-13-2021 Episodic Comment on above: Problem List clean-u p per request of Phys. EHR Cmte Past or Other Problems Problem Classification Problem Date Documented Da te Episodic/Chronic Calculus of urinary tract (20 sources) Kidney stone; Translations: [Calculus of kidney] Onset: 10-11-2022 Resolved: 10-11-2022 10-11-2022 Episodic Cancer of stomach (20 sources) Malignant carcinoid tumor of stomach; Translations: [Malignant carcinoid tumor of the stomach] Onset: 01-20-2023 Resolved: 06-13-2023 Chronic Deficiency and other anemia (20 sources) Pernicious anemia; Translations: [Vitamin B12 deficiency anemia due to intrinsic factor deficiency] Onset: 10-11-2022 10-11-2022 Episodic Diabetes mellitus without complication (20 sources) Diabetes mellitus; Translations: [Type 2 diabetes mellitus without complications] Onset: 10-11-2022 Resolved: 01-20-2023 01-20-2023 Chronic Diabetes mellitus without complication (20 sources) Impaired fasting glycemia; Translations: [Impaired fasting glucose] Onset: 10-11-2022 10-11-2022 Episodic Nausea and vomiting (20 sources) Nausea and vomiting; Translations: [Nausea with vomiting, unspecified] Onset: 02-25-2022 02-25-2022 Episodic Noninfectious gastroenteritis (20 sources) Gastroenteritis; Translations: [Noninfective gastroenteritis and colitis, unspecified] Onset: 02-23-2022 Episodic Nonspecific chest pain (20 sources) Atypical chest pain; Translations: [Chest discomfort] Onset: 06-08-2024 03-17-2019 Episodic Comment on above: Problem List clean-u p per request of Phys. EHR Cmte Other and unspecified benign neoplasm (20 sources) Neoplasm of stomach ; Translations: [Benign carcinoid tumor of the stomach] Resolved: 02-25-2022 02-25-2022 Episodic Other and unspecified benign neoplasm (1 source) Benign carcinoid tumors of other sites; Translations: [GI carcinoid tumor] Onset: 03-29-2024 Episodic Other bone disease and musculoskeletal deformities (1 source) Other specified disorders of bone, unspecified site; Translations: [Bone pain] Onset: 04-27-2024 Episodic Other connective tissue disease (20 sources) Elongated styloid process syndrome; Translations: [Disorder of ligament, unspecified site] Onset: 10-11-2022 10-11-2022 Episodic Other disorders of stomach and duodenum (20 sources) Gastroparesis syndrome; Translations: [Gastroparesis] Onset: 10-11-2022 10-11-2022 Episodic Other gastrointestinal disorders (20 sources) Abdominal bloating; Translations: [Abdominal distension (gaseous)] Onset: 06-13-2023 Resolved: 11-08-2023 06-13-2023 Episodic Other gastrointestinal disorders (1 source) Diarrhea, unspecified; Translations: [Diarrhea, unspecified type] Onset: 03-29-2024 Episodic Other lower respiratory disease (15 sources) Other nonspecific abnormal finding of lung field; Translations: [Other nonspecific abnormal finding of lung field] Onset: 04-17-2024 09-22-2023 Episodic Other lower respiratory disease (1 source) Solitary pulmonary nodule; Translations: [Lung nodule] Onset: 08-19-2023 Episodic Other nutritional; endocrine; and metabolic disorders (20 sources) Obesity caused by energy imbalance; Translations: [Other obesity due to excess calories] Onset: 10-11-2022 Resolved: 04-21-2023 04-21-2023 Chronic Other nutritional; endocrine; and metabolic disorders (1 source) Abnormal weight gain; Translations: [Weight gain] Onset: 08-19-2023 Episodic Pancreatic disorders (not diabetes) (8 sources) Exocrine pancreatic insufficiency; Translations: [Exocrine pancreatic insufficiency] Onset: 08-19-2023 Episodic Residual codes; unclassified (4 sources) Family history of malignant neoplasm of digestive organs; Translations: [Family history of colon cancer] Onset: 12-29-2022 Episodic Residual codes; unclassified (20 sources) Insomnia; Translations: [Insomnia, unspecified] Onset: 10-11-2022 10-11-2022 Episodic Residual codes; unclassified (1 source) Family history of malignant neoplasm of kidney; Translations: [Family history of kidney cancer] Onset: 03-27-2024 Episodic Spondylosis; intervertebral disc disorders; other back problems (5 sources) Cervical radiculopathy; Translations: [Radiculopathy, cervical region] Onset: 04-17-2024 03-08-2024 Episodic Unclassified (1 source) Cough R05.9 Viral infection (1 source) COVID-19 Results Test Name Value Interpretation Reference Range Facility No Panel InformationOrdered By: Hernando Hylton on 09-13-2024 Quick Strep (POC) [facility] Throat Cultureon 09-13-2024 Throat culture Heavy Normal Respira tory Beck 2 Days PERFORMED BY: [place] [address] PATHOLOGIST POWER STATION OPERATOR SHANIKA PERRY M.D. Normal [facility] Comment on above: Performed By: #### B UN, LYTES, CREAT, PTH, CA, URIC #### [address] Ambulatory Visit Summaryon 0 09-12-2024 Ambulatory Visit Summary Ambulatory Visit Summary HANK LIU :1970 Visit Date:09/12/2024 Ambulatory Visit Instructions Your Diagnosis Kidney stones Your Care Team Attending Physician - HEATHER SAMUEL PA-C Primary Care Physician - TREY BROWN DO This Is Your Medications List Contact prescribing physician if questions or concerns ascorbic acid (Vitamin C) cefuroxime (cefuroxime 500 mg oral tablet) docusate (Dulcolax Stool Softener) ibuprofen (ibuprofen 800 mg Tab) multivitamin (Multi Vitamin+) ropinirole rosuvastatin senna (Senna 8.6 mg oral tablet) trazodone (traZODONE 100 mg Tab) Procedures Performed Cystourethroscopy with dilation of urethral stricture (08/30/2019), Bowel, Breast, Cholecystectomy, Colonoscopy, Hysterectomy, Left shoulder. Discharge Vitals Temperature (Temporal Artery) 36.7 ???C Heart Rate (Peripheral) 92 Respiratory Rate 16 Blood Pressure 122/78 Height 158 cm Height 62 in Weight 90.4 kg Weight 199.298 lb BMI 36.21 What to do next You Need to Schedule the Following Appointments Follow Up with KELLI HENSLEY, ANITA Lyon When: In 6 months Where: [address] [place] [address]- Medications What How Much When Instructions Unchanged ascorbic acid (Vitamin C) Every day Contact prescribing physician if questions or concerns Unchanged cefuroxime (cefuroxime 500 mg oral tablet) Contact prescribing physician if questions or concerns Unchanged docusate (Dulcolax Stool Softener) By Mouth 2 times a day Contact prescribing physician if questions or concerns Unchanged ibuprofen (ibuprofen 800 mg Tab) By Mouth 3 times a day Contact prescribing physician if questions or concerns Unchanged multivitamin (Multi Vitamin+) Contact prescribing physician if questions or concerns Unchanged ropinirole By Mouth Contact prescribing physician if questions or concerns Unchanged rosuvastatin 40 Milligram By Mouth Every day Contact prescribing physician if questions or concerns Unchanged senna (Senna 8.6 mg oral tablet) 2 Tablets By Mouth Once a day (at bedtime) as needed for for constipation Contact prescribing physician if questions or concerns Unchanged trazodone (traZODONE 100 mg Tab) By Mouth 2 times a day Contact prescribing physician if questions or concerns Allergies iodine (Unknown) nalbuphine (Unknown) Problems Ongoing - Any problem that you are currently receiving treatment for. Anxiety Depression Dysuria Former smoker Gallstone Hypercholesterolemia Kidney stones Smoker Stomach cancer AURA (stress urinary incontinence, female) Ureteral stone with hydronephrosis Vaginitis Patient Survey You may receive a survey via text or e-mail asking about your office visit. Please share your experience with us by completing your survey. We appreciate your feedback and thank you for choosing us for your care. Education Materials Kidney Stones Kidney stones are rock-like masses that form inside of the kidneys. Kidneys are organs that make pee (urine). A kidney stone may move into other parts of the urinary tract, including: ??? The tubes that connect the kidneys to the bladder (ureters). ??? The bladder. ??? The tube that carries urine out of the body (urethra). Kidney stones can cause very bad pain and can block the flow of pee. The stone usually leaves your body through your pee. A doctor may need to take out the stone. What are the causes? Kidney stones may be caused by: ??? Too much calcium in the body. This may be caused by too much parathyroid hormone in the blood. ??? Uric acid crystals in the bladder. The body makes uric acid when you eat certain foods. ??? Narrowing of one or both of the ureters. ??? A kidney blockage that you were born with. ??? Past surgery on the kidney or the ureters. What increases the risk? You are more likely to develop this condition if: ??? You have had a kidney stone in the past. ??? Other people in your family have had kidney stones. ??? You do not drink enough water. ??? You eat a diet that is high in protein, salt (sodium), or sugar. ??? You are very overweight (obese). What are the signs or symptoms? Symptoms of a kidney stone may include: ??? Pain in the side of the belly, right below the ribs. Pain usually spreads to the groin. ??? Needing to pee often or right away. ??? Pain when peeing. ??? Blood in your pee. ??? Feeling like you may vomit (nauseous). ??? Vomiting. ??? Fever and chills. How is this treated? Treatment depends on the size, location, and makeup of the kidney stones. The stones will often pass out of the body when you pee. You may need to: ??? Drink more fluid to help pass the stone. ? In some cases, you may be given fluids through an IV tube at the hospital. ??? Take medicine for pain. ??? Change your diet to help keep kidney stones fro (more content not included)... [facility] Urology Office/Clinic Noteon 09-12-2024 Urology Office/Clinic Note Urology Office/Clinic Note Chief Complaint Kidney stones HPI Staff Hank 54 yo female presents here today for Kidney stones. Previous Dx: Kidney Stones S/p R ESWL 01/26/24 CT 08/18/24 [facility]- Bilateral nephrolithiasis measuring up to 4mm. No hydro. Denies dysuria, denies hematuria, denies abdominal pain. Has some bilateral flank pain. Review of Systems PHQ Score Initial Depression Screen Score: 0 SCORE no fever, chills, malaise, myalgia. Physical Exam Vitals & Measurements T: 36.7 ???C(Temporal Artery) HR: 92(Peripheral) RR: 16 BP: 122/78 HT: 158 cm HT: 62 in WT: 90.4 kg WT: 199.298 lb BMI: 36.21 General: nontoxic, NAD Mouth: moist mucosa Lungs: normal respiratory effort Cardio: regular rate, good distal perfusion Abdomen: nondistended Neurologic: Grossly normal Skin: No rashes or suspicious lesions Assessment/Plan 1. Kidney stones (N20.0: Calculus of kidney) 04/25/24: S/p R ESWL/ur dil/ureteroscopy 01/26/24 for 5-6mm stone. This was her first stone episode. KUB 04/12/24 shows no stones. Metabolic eval reviewed w pt. Bloodwork looks good. Urine volume low - 1800ml, pt to increase to 2500-3000ml daily. 24hr urine Na high (256), pt to reduce dietary Na. 24h urine Oxalate borderline high (31), pt given low oxalate diet printed information & encouraged to follow. F/u PRN TODAY: Pt ended up in ER 08/18/24 w diffuse abdominal pain. Dx'd w constipation but incidental finding of bilat renal stones on CT so referred back here. CT 08/18/24 [facility]- Bilateral nephrolithiasis measuring up to 4mm. No hydro. Denies any recent stone passage or pain. Pt does report since our discussion in Apr/review of metabolic eval she has drastically increased fluid intake. Advised pt instead of PRN f/u we can monitor these annually w KUB+ANDREW (Since not visible on KUB in Apr). Pt prefers 6 mos. Ordered: Body Mass Index (BMI) documented 3008F Current tobacco non-user 1036F Depression Screening Negative 3352F E&M of Est. Patient Low 20-29 Min 33645 Influenza immunization status assessed 1030F Medication list documented in medical record 1159F Most recent diastolic blood pressure <80 mm Hg 3078F Review of all meds by a prescribing practitioner or clinical pharmacist documented in EHR 1160F Systolic BP <130 mm Hg (Most Recent) 3074F Urnls Dip Stick Auto w/o Microscopy POC 70109 Follow-up With When Contact Information KELLI HENSLEY, ANITA Lyon In 6 months [address] [place] [address]- Additional Instructions: Patient Education Kidney Stones, [id number] Problem List/Past Medical History Ongoing Anxiety Depression Dysuria Former smoker Gallstone Hypercholesterolemia Kidney stones Smoker Stomach cancer AURA (stress urinary incontinence, female) Ureteral stone with hydronephrosis Vaginitis Historical No qualifying data Procedure/Surgical History Cystourethroscopy with dilation of urethral stricture (08/30/2019), Bowel, Breast, Cholecystectomy, Colonoscopy, Hysterectomy, Left shoulder. Medications cefuroxime 500 mg oral tablet Dulcolax Stool Softener, Oral, BID ibuprofen 800 mg Tab, Oral, TID Multi Vitamin+ ropinirole, Oral rosuvastatin, 40 mg, Oral, Daily Senna 8.6 mg oral tablet, 17.2 mg= 2 tab(s), Oral, Once a day (at bedtime), PRN traZODONE 100 mg Tab, Oral, BID Vitamin C, Daily Allergies iodine (Unknown) nalbuphine (Unknown) Social History Alcohol Past. Beer, Wine. 1-2 times per week., 04/23/2024 Substance Abuse Never., 04/23/2024 Tobacco Former smoker, quit more than 30 days ago Tobacco Use:. Never Smokeless Tobacco Use:. Cigarettes, 09/12/2024 Family History Alcoholism: Father. Colon cancer: Mother and Brother. Diabetes mellitus type 1: Mother. Hypercholesterolaemia: Mother and Father. Hypertension: Father. Kidney stones: Father. Stroke: Father. Immunizations Vaccine Date Status influenza virus vaccine, inactivated 02/13/2021 Recorded SARS-CoV-2 (COVID-19) mRNA-1273 vaccine 06/23/2020 Recorded SARS-CoV-2 (COVID-19) mRNA-1273 vaccine 05/27/2020 Recorded influenza virus vaccine, inactivated 02/01/2020 Recorded influenza virus vaccine, inactivated 12/24/2019 Recorded influenza virus vaccine, live, trivalent 02/06/2019 Recorded influenza virus vaccine, inactivated 01/19/2019 Recorded influenza virus vaccine, inactivated 03/08/2018 Recorded influenza virus vaccine, inactivated 04/15/2017 Recorded Lab Results Ambulatory Point of Care Results Bilirubin Urine Dipstick: Negative (09/12/24 13:32:00) Blood Urine Dipstick: Trace-lysed (09/12/24 13:32:00) Glucose Urine Dipstick: Negative (09/12/24 13:32:00) Ketones Urine Dipstick: Trace - 5 mg/dl (09/12/24 13:32:00) Leukocytes Urine Dipstick: Negative (09/12/24 13:32:00) Nitrite Urine Dipstick: Negative (09/12/24 13:32:00) Protein Urine Dipstick: 1+ (30 mg/dl) (09/12/24 13:32:00) Specific [place] Urine Dipstick: >=1.030 (09/12/24 13:32:00) Urine Appea (more content not included)... Normal [facility] Comment on above: Result Comment: Elec tronically Signed By: LIZZIE REID, HEATHER Dockery\.br\Date and Time Signed: 09/12/24 14:04 EDT Aerobic throat cultureOrdere d By: Luis Fernando Dela Cruz on 08-28-2024 Bacteria identified Aer cx Nom (Throat) Aerobic throat culture [facility] Throat Cultureon 08-28-2024 Throat culture Respiratory Results Heavy Normal Respiratory Beck 2 Days PERFORMED BY: [place] [address] PATHOLOGIST POWER STATION OPERATOR SHANIKA PERRY M.D. Normal [facility] Comment on above: Performed By: #### B MP, CBC, LIPASE, HEPATIC #### [facility] [address] Alanine aminotransferase [En zymatic activity/volume] in Serum or PlasmaOrdered By: Gisell Howard on 08-18-2024 ALT [Catalytic activity/Vol] Alanine aminotransferase [Enzymatic activity/volume] in Serum or Plasma [facility] Albumin [Mass/volume] in Ser um or Plasma by Bromocresol green (BCG) dye binding methoOrdered By: Gisell Howard on 08-18-2024 Albumin BCG dye [Mass/Vol] Albumin [Mass/volume] in Serum or Plasma by Bromocresol green (BCG) dye binding metho 3.5-5.7 [facility] Alkaline phosphatase [Enzyma tic activity/volume] in Serum or PlasmaOrdered By: Gisell Howard on 08-18-2024 ALP [Catalytic activity/Vol] Alkaline phosphatase [Enzymatic activity/volume] in Serum or Plasma 34-104 [facility] Appearance of UrineOrdered B y: PROVIDER TEMP on 08-18-2024 Appearance (U) Urine appearance [facility] Aspartate aminotransferase [ Enzymatic activity/volume] in Serum or PlasmaOrdered By: Gisell Howard on 08-18-2024 AST [Catalytic activity/Vol] Aspartate aminotransferase [Enzymatic activity/volume] in Serum or Plasma 13-39 [facility] Basic Metabolic Panelon 08-07 Anion gap [Moles/Vol] 10.2 mmol/L Normal 6.0-15.0 Th e [facility] Comment on above: Performed By: #### B MP, CBC, LIPASE, HEPATIC #### [facility] [address] Calcium [Mass/Vol] 10.0 mg/dL Normal 8.6-10.3 [facility] Comment on above: Performed By: #### B MP, CBC, LIPASE, HEPATIC #### [facility] [address] [place] [address] [place] Chloride [Moles/Vol] 107 mmol/L Normal 98-107 [facility] Comment on above: Performed By: #### B MP, CBC, LIPASE, HEPATIC #### [facility] [address] [place] [id number] [place] CO2 [Moles/Vol] 29.0 mmol/L Normal 21.0-31.0 The [facility] Comment on above: Performed By: #### B MP, CBC, LIPASE, HEPATIC #### [facility] [address] [place] [address] [place] Creatinine [Mass/Vol] 0.75 mg/dL Normal 0.60-1.20 [facility] Comment on above: Performed By: #### B MP, CBC, LIPASE, HEPATIC #### [address] Creatinine Clr Calc Pharmacy 82.30 Normal [facility] Comment on above: Performed By: #### B MP, CBC, LIPASE, HEPATIC #### [place] [address] [place] GFR/1.73 sq M.predicted MDRD (S/P/Bld) [Vol rate/Area] mL/min/{1.73_m2} Normal [facility] Comment on above: Performed By: #### B MP, CBC, LIPASE, HEPATIC #### [address] Glucose [Mass/Vol] 102 mg/dL High 70-100 [facility] Comment on above: Result Comment: [facility] Glucose Reference Range is dependent on time and content of last meal. Glucose of more than 200 mg/dL in a nonstressed, ambulatory subject supports the diagnosis of Diabetes Mellitus. ADA recommended reference range Performed By: #### B MP, CBC, LIPASE, HEPATIC #### [address] Potassium [Moles/Vol] 4.2 mmol/L Normal 3.5-5.1 [facility] Comment on above: Performed By: #### B MP, CBC, LIPASE, HEPATIC #### [address] Sodium [Moles/Vol] 142 mmol/L Normal 136-145 [facility] Comment on above: Performed By: #### B MP, CBC, LIPASE, HEPATIC #### [address] Urea nitrogen [Mass/Vol] 11 mg/dL Normal 7-25 [facility] Comment on above: Performed By: #### B MP, CBC, LIPASE, HEPATIC #### [place] [address] [place] Basophils Auto (Bld) [#/Vol] Ordered By: Gisell Howard on 08-18-2024 Basophils (Bld) [#/Vol] Automated basophil count 0.0-0.2 [facility] Basophils/100 WBC Auto (Bld) Ordered By: Gisell Howard on 08-18-2024 Basophils/100 WBC (Bld) Automated basophil % . [facility] Bilirubin Test strip Ql (U)O rdered By: PROVIDER CELIA on 08-18-2024 Bilirubin Ql (U) Bilirubin.total [Presence] in Urine by Test strip Negative [facility] Bilirubin.direct [Mass/volum e] in Serum or PlasmaOrdered By: Gisell Howard on 08-18-2024 Bilirubin.direct [Mass/Vol] Bilirubin.direct [Mass/volume] in Serum or Plasma Low 0.03-0.18 [facility] Comment on above: If the DBIL is less than 0.1, IBIL is not able to becalculated. Bilirubin.total [Mass/volume ] in Serum or PlasmaOrdered By: Gisell Howard on 08-18-2024 Bilirubin [Mass/Vol] Bilirubin.total [Mass/volume] in Serum or Plasma 0.3-1.[address] [facility] [address] abdomen pelvis wo conon 0 08-18-2024 CT abdomen pelvis wo con [facility] [place] [address] CT Scan Report Signed Patient: Hank Liu MR#: [id number] [birth year] : 1970 Acct:[id number] Age/Sex: 54 / F ADM Date: 08/18/24 Loc: ER Room: Type: [facility] ER Attending Dr: Copies to: Gisell Howard APRN Ordering Provider: Gisell Howard APRN Date of Service: 08/18/24 CT/CT abdomen pelvis wo con: pain CT Abdomen and Pelvis withoutcontrast TECHNIQUE: Axial imaging with 2-D reconstruction. . The CT exam was performed using one or more the following dose reduction techniques: Automated exposure control, adjustment of the MA and/or Kv according to patient size, or use of the iterative reconstruction technique. COMPARISON: 01/23/2024 History: Abdominal pain. Constipation. LIMITATIONS: None LOWER THORAX Unremarkable LIVER: Fatty hepatomegaly. GALLBLADDER: Cholecystectomy clips identified. BILE DUCTS: No dilatation SPLEEN: Unremarkable PANCREAS: Unremarkable ADRENAL GLANDS: Unremarkable KIDNEYS:Bilateral nephrolithiasis measuring up to 4 mm. No hydronephrosis. AORTA: No abdominal aortic aneurysm identified. RETROPERITONEUM: No significant retroperitoneal abnormalities identified. MESENTERY:Unremarkable SMALL BOWEL: The small bowel loops are nondistended. APPENDIX: The appendix is normal. COLON: Distal colonic diverticulosis. Constipation. URINARY BLADDER: Urinary bladder is unremarkable. REPRODUCTIVE SYSTEM: The uterus is absent. PNEUMOPERITONEUM: None PERITONEAL FLUID:None BONY STRUCTURES: Similar extensive lumbar degeneration. ABDOMINAL WALL: Unremarkable CT/CT abdomen pelvis wo con IMPRESSION: No acute findings. Constipation. Bilateral nephrolithiasis. No hydronephrosis. Impression dictated by: Trey Ford M.D.08/18/2024 1:54 PM Dictation Location: [facility] Transcribed By: [facility] 08/18/24 1354 Dictated By: Trey Ford DO 08/18/24 1350 Signed By: 08/18/24 1354 Normal [facility] Calcium [Mass/volume] in Ser um or PlasmaOrdered By: Gisell Howard on 08-18-2024 Calcium [Mass/Vol] Calcium [Mass/volume ] in Serum or Plasma 8.6-10.3 [facility] Carbon dioxide, total [Moles /volume] in Serum or PlasmaOrdered By: Gisell Howard on 08-18-2024 CO2 [Moles/Vol] Carbon dioxide, tota l [Moles/volume] in Serum or Plasma 21.0-31.0 [facility] Chloride [Moles/volume] in S samson or PlasmaOrdered By: Gisell Howard on 08-18-2024 Chloride [Moles/Vol] Chloride [Moles/vol ume] in Serum or Plasma 98-107 [facility] Color Auto (U)Ordered By: EMILY YANG on 08-18-2024 Color (U) Color of Urine by Auto Yellow Fi [facility] Complete Blood Count Auto Di ffon 08-18-2024 Basophils (Bld) [#/Vol] 0.0 10*3/uL Normal 0.0-0.2 [facility] Comment on above: Result Comment: PERF ORMED BY: [facility] [address] [place] [address] PATHOLOGIST POWER STATION OPERATOR SHANIKA PERRY M.D. Performed By: #### B MP, CBC, LIPASE, HEPATIC #### [address] Basophils/100 WBC (Bld) 0.8 % Normal . T lonnie [facility] Comment on above: Performed By: #### B MP, CBC, LIPASE, HEPATIC #### [address] Eosinophils (Bld) [#/Vol] 0.2 10*3/uL Normal 0.0-0.45 [facility] Comment on above: Performed By: #### B MP, CBC, LIPASE, HEPATIC #### [address] Eosinophils/100 WBC (Bld) 4.0 % Normal . [facility] Comment on above: Performed By: #### B MP, CBC, LIPASE, HEPATIC #### [address] Erythrocyte distribution width (RBC) [Ratio] 14.5 % Normal 11.9-15.3 [facility] Comment on above: Performed By: #### B MP, CBC, LIPASE, HEPATIC #### [address] Hematocrit (Bld) [Volume fraction] 38.9 % Normal 34.0-46.4 [facility] Comment on above: Performed By: #### B MP, CBC, LIPASE, HEPATIC #### [address] Hemoglobin (Bld) [Mass/Vol] 13.1 g/dL Normal 11.8-15.4 [facility] Comment on above: Performed By: #### B MP, CBC, LIPASE, HEPATIC #### [address] Lymphocytes (Bld) [#/Vol] 2.0 10*3/uL Normal 1.00-4.8 [facility] Comment on above: Performed By: #### B MP, CBC, LIPASE, HEPATIC #### [address] Lymphocytes/100 WBC (Bld) 39.0 % Normal . [facility] Comment on above: Performed By: #### B MP, CBC, LIPASE, HEPATIC #### [address] MCH (RBC) [Entitic mass] 28.3 pg Normal 24.7-34.3 [facility] Comment on above: Performed By: #### B MP, CBC, LIPASE, HEPATIC #### [address] MCV (RBC) [Entitic vol] 84.3 fL Normal 80-100 [facility] Comment on above: Performed By: #### B MP, CBC, LIPASE, HEPATIC #### [address] Mean Corpuscular HGB Conc 33.6 g/dL Normal 32.0-35.0 [facility] Comment on above: Performed By: #### B MP, CBC, LIPASE, HEPATIC #### [address] Monocytes (Bld) [#/Vol] 0.4 10*3/uL Normal 0.0-0.8 [facility] Comment on above: Performed By: #### B MP, CBC, LIPASE, HEPATIC #### [address] Monocytes/100 WBC (Bld) 18.45 % Normal 0.00-20.00 [facility] Comment on above: Performed By: #### B MP, CBC, LIPASE, HEPATIC #### [address] Monocytes/100 WBC (Bld) 7.5 % Normal . [facility] Comment on above: Performed By: #### B MP, CBC, LIPASE, HEPATIC #### [address] Neutrophils (Bld) [#/Vol] 2.4 10*3/uL Normal 1.8-7.7 [facility] Comment on above: Performed By: #### B MP, CBC, LIPASE, HEPATIC #### [address] Neutrophils/100 WBC (Bld) 48.7 % Normal . [facility] Comment on above: Performed By: #### B MP, CBC, LIPASE, HEPATIC #### [facility] [address] NRBC% 0.1 /100{WBC} Normal 0-0.5 The [facility] Comment on above: Performed By: #### B MP, CBC, LIPASE, HEPATIC #### [address] Platelet mean volume (Bld) [Entitic vol] 7.8 fL Normal 6.3-10.7 The [facility] Comment on above: Performed By: #### B MP, CBC, LIPASE, HEPATIC #### [address] Platelets (Bld) [#/Vol] 258 10*3/uL Normal 150-450 [facility] Comment on above: Performed By: #### B MP, CBC, LIPASE, HEPATIC #### [address] RBC (Bld) [#/Vol] 4.61 10*6/uL Normal 3.60-5.00 The [facility] Comment on above: Performed By: #### B MP, CBC, LIPASE, HEPATIC #### [address] WBC (Bld) [#/Vol] 5.0 10*3/uL Normal 3.8-11.6 [facility] Comment on above: Performed By: #### B MP, CBC, LIPASE, HEPATIC #### [place] [address] [place] Creatinine [Mass/volume] in Serum or PlasmaOrdered By: Gisell Howard on 08-18-2024 Creatinine [Mass/Vol] Creatinine [Mass/v olume] in Serum or Plasma 0.60-1.20 [facility] Eosinophils Auto (Bld) [#/Vo l]Ordered By: Gisell Howard on 08-18-2024 Eosinophils (Bld) [#/Vol] Automated eosinophil count 0.0-0.45 [facility] Eosinophils/100 WBC Auto (Bl d)Ordered By: Gisell Howard on 08-18-2024 Eosinophils/100 WBC (Bld) Automated eosinophil % . [facility] Erythrocyte distribution wid th Auto (RBC) [Ratio]Ordered By: Gisell Howard on 08-18-2024 Erythrocyte distribution width (RBC) [Ratio] Erythrocyte distribution width [Ratio] by Automated count 11.9-15.3 [facility] Globulin Calc (S) [Mass/Vol] Ordered By: Gisell Howard on 08-18-2024 Globulin (S) [Mass/Vol] Serum globulin measurement by calculation (mass/volume) [facility] Glucose [Mass/volume] in Ser um or PlasmaOrdered By: Gisell Howard on 08-18-2024 Glucose [Mass/Vol] Glucose [Mass/volume ] in Serum or Plasma High 70-100 [facility] Comment on above: ADA recommended refe rence rangeRandom Glucose Reference Range is dependent on time and content of last meal. Glucose of more than 200 mg/dL in a nonstressed, ambulatory subject supports the diagnosis of Diabetes Mellitus. Glucose [Mass/volume] in Uri ne by Test stripOrdered By: ERIN YANG on 08-18-2024 Glucose Test strip (U) [Mass/Vol] Glucose [Mass/volume] in Urine by Test strip Normal [facility] Hematocrit Auto (Bld) [Volum e fraction]Ordered By: Gisell Howard on 08-18-2024 Hematocrit (Bld) [Volume fraction] Hematocrit [Volume Fraction] of Blood by Automated count 34.0-46.4 [facility] Hemoglobin Test strip Ql (U) Ordered By: PROVIDER CELIA on 08-18-2024 Hemoglobin Ql (U) Hemoglobin [Presence ] in Urine by Test strip Negative [facility] Hemoglobin [Mass/volume] in BloodOrdered By: Gisell Howard on 08-18-2024 Hemoglobin (Bld) [Mass/Vol] Hemoglobin [Mass/volume] in Blood 11.8-15.4 [facility] Hepatic Panelon 08-18-2024 Albumin [Mass/Vol] 4.6 g/dL Normal 3.5-5.7 [facility] Comment on above: Performed By: #### B MP, CBC, LIPASE, HEPATIC #### [address] Albumin/Globulin [Mass ratio] 1.5 {ratio} Normal [facility] Comment on above: Performed By: #### B MP, CBC, LIPASE, HEPATIC #### [facility] [address] ALP [Catalytic activity/Vol] 57 U/L Normal 34-104 [facility] Comment on above: Performed By: #### B MP, CBC, LIPASE, HEPATIC #### [address] ALT [Catalytic activity/Vol] 22 U/L Normal 7-52 [facility] Comment on above: Performed By: #### B MP, CBC, LIPASE, HEPATIC #### [address] AST [Catalytic activity/Vol] 33 U/L Normal 13-39 [facility] Comment on above: Performed By: #### B MP, CBC, LIPASE, HEPATIC #### [address] Bilirubin [Mass/Vol] 0.3 mg/dL Normal 0.3-1.0 [facility] Comment on above: Performed By: #### B MP, CBC, LIPASE, HEPATIC #### [address] Bilirubin,Indirect 0.3 mg/dL Normal [facility] Comment on above: Performed By: #### B MP, CBC, LIPASE, HEPATIC #### [address] Bilirubin.indirect [Mass/Vol] 0.00 mg/dL Low 0.03-0.18 [facility] Comment on above: Result Comment: If t he DBIL is less than 0.1, IBIL is not able to be calculated. Performed By: #### B MP, CBC, LIPASE, HEPATIC #### [facility] [address] [place] [address] [place] Globulin (S) [Mass/Vol] 3.0 g/dL Normal T he [facility] Comment on above: Performed By: #### B MP, CBC, LIPASE, HEPATIC #### [facility] [address] Protein [Mass/Vol] 7.6 g/dL Normal 6.4-8.9 [facility] Comment on above: Performed By: #### B MP, CBC, LIPASE, HEPATIC #### [facility] [address] [place] [address] [place] INR in Platelet poor plasma by Coagulation assayOrdered By: Gisell Howard on 08-18-2024 INR Coag (PPP) [Relative time] INR in Platelet poor plasma by Coagulation assay [facility] Comment on above: INR Therapeutic Rang e A) Pre- and Peroperative OAT started two weeks before surgery. NOT HIP SURGERY: 1.5 - 2.5 HIP SURGERY: 2 - 3B) Primary and secondary prevention of venous THROMBOSIS: 2 - 3C) Active venous thrombosis, pulmonary embolismand prevention of recurrent venous thrombosis: 2 - 3D) Prevention of arterial thromboembolismincluding patients with mechanical heart valves: 3 - 4.5 Ketones Test strip Ql (U)Ord ered By: PROVIDER TEMP on 08-18-2024 Ketones Ql (U) Ketones [Presence] i n Urine by Test strip Negative [facility] Leukocyte esterase [Presence ] in Urine by Test stripOrdered By: PROVIDER TEMP on 08-18-2024 Leukocyte esterase Test strip Ql (U) Leukocyte esterase [Presence] in Urine by Test strip Negative [facility] Leukocytes [#/volume] correc thor for nucleated erythrocytes in Blood by Automated counOrdered By: Gisell Howard on 08-18-2024 WBC corrected for nucl RBC Auto (Bld) [#/Vol] Leukocytes [#/volume] corrected for nucleated erythrocytes in Blood by Automated coun 3.8-11.6 [facility] Lipaseon 08-18-2024 Lipase [Catalytic activity/Vol] 41.0 U/L Normal 11.0-82.0 [facility] Comment on above: Result Comment: PERF ORMED BY: [facility] [address] [place] [address] PATHOLOGIST POWER STATION OPERATOR SHANIKA PERRY M.D. Performed By: #### B MP, CBC, LIPASE, HEPATIC #### [address] Lipase [Enzymatic activity/v olume] in Serum or PlasmaOrdered By: Gisell Howard on 08-18-2024 Lipase [Catalytic activity/Vol] Lipase [Enzymatic activity/volume] in Serum or Plasma 11.0-82.0 [facility] Lymphocytes Auto (Bld) [#/Vo l]Ordered By: Gisell Howard on 08-18-2024 Lymphocytes (Bld) [#/Vol] Lymphocytes [#/volume] in Blood by Automated count 1.00-4.8 [facility] Lymphocytes/100 WBC Auto (Bl d)Ordered By: Gisell Howard on 08-18-2024 Lymphocytes/100 WBC (Bld) Lymphocytes/100 leukocytes in Blood by Automated count . [facility] MCH Auto (RBC) [Entitic mass ]Ordered By: Gisell Howard on 08-18-2024 MCH (RBC) [Entitic mass] MCH [Entitic mass] by Automated count 24.7-34.3 [facility] MCHC Auto (RBC) [Mass/Vol]Or dered By: Gisell Howard on 08-18-2024 MCHC (RBC) [Mass/Vol] MCHC [Mass/volume] by Automated count 32.0-35.0 [facility] MCV Auto (RBC) [Entitic vol] Ordered By: Gisell Howard on 08-18-2024 MCV (RBC) [Entitic vol] MCV [Entitic vol ume] by Automated count 80-100 [facility] Monocyte distribution width [Entitic volume] in Blood by AutomatedOrdered By: Gisell Howard on 08-18-2024 Monocyte distribution width Auto (Bld) [Entitic vol] Monocyte distribution width [Entitic volume] in Blood by Automated 0.00-20.00 [facility] Monocytes Auto (Bld) [#/Vol] Ordered By: Gisell Howard on 08-18-2024 Monocytes (Bld) [#/Vol] Automated blood monocyte count 0.0-0.8 [facility] Monocytes/100 WBC Auto (Bld) Ordered By: Gisell Howard on 08-18-2024 Monocytes/100 WBC (Bld) Automated monocyte % . [facility] Neutrophils Auto (Bld) [#/Vo l]Ordered By: Gisell Howard on 08-18-2024 Neutrophils (Bld) [#/Vol] Neutrophils [#/volume] in Blood by Automated count 1.8-7.7 [facility] Neutrophils/100 WBC Auto (Bl d)Ordered By: Gisell Howard on 08-18-2024 Neutrophils/100 WBC (Bld) Automated neutrophil % . [facility] Nitrite Test strip Ql (U)Ord ered By: PROVIDER TEMP on 08-18-2024 Nitrite Ql (U) Nitrite [Presence] i n Urine by Test strip Negative [facility] No Panel InformationOrdered By: Gisell Howard on 08-18-2024 Estimated GFR (CKD-EPI) > 60.0 mL/Min [facility] Creatinine Clearance (Chem 82.30 [facility] Nucleated erythrocytes [Pres ence] in Blood by Automated countOrdered By: Gisell Howard on 08-18-2024 Nucleated RBC Auto Ql (Bld) Nucleated erythrocytes [Presence] in Blood by Automated count 0-0.5 [facility] Partial Thromboplastin Timeo n 08-18-2024 aPTT Coag (Bld) [Time] 27.4 s Normal 25.1-36.5 Th e [facility] Comment on above: Result Comment: A he matocrit value greater than 55% may lead to inaccurate results in coagulation testing. Patients having hematocrit values >55% require a special collection tube for coagulation studies. Please contact the laboratory at [phone] for redraw instructions. PERFORMED BY: [place] [id number] PATHOLOGIST POWER STATION OPERATOR SHANIKA PERRY M.D. Performed By: #### B MP, CBC, LIPASE, HEPATIC #### [address] Platelet mean volume Auto (B ld) [Entitic vol]Ordered By: Gisell Howard on 08-18-2024 Platelet mean volume (Bld) [Entitic vol] Platelet mean volume [Entitic volume] in Blood by Automated count 6.3-10.7 [facility] Platelets Auto (Bld) [#/Vol] Ordered By: Gisell Howard on 08-18-2024 Platelets (Bld) [#/Vol] Platelets [#/vol ume] in Blood by Automated count 150-450 [facility] Potassium [Moles/volume] in Serum or PlasmaOrdered By: Gisell Howard on 08-18-2024 Potassium [Moles/Vol] Potassium [Moles/v olume] in Serum or Plasma 3.5-5.1 [facility] Protein Test strip (U) [Mass /Vol]Ordered By: ERIN YANG on 08-18-2024 Protein (U) [Mass/Vol] Protein [Mass/vol ume] in Urine by Test strip Negative [facility] Protein [Mass/volume] in Ser um or PlasmaOrdered By: Gisell Howard on 08-18-2024 Protein [Mass/Vol] Protein [Mass/volume ] in Serum or Plasma 6.4-8.9 [facility] Prothrombin Time INRon 08-18 INR Coag (PPP) [Relative time] 0.9 {INR} Normal [facility] Comment on above: Result Comment: INR Therapeutic Range A) Pre- and Peroperative OAT started two weeks before surgery. NOT HIP SURGERY: 1.5 - 2.5 HIP SURGERY: 2 - 3 B) Primary and secondary prevention of venous THROMBOSIS: 2 - 3 C) Active venous thrombosis, pulmonary embolism and prevention of recurrent venous thrombosis: 2 - 3 D) Prevention of arterial thromboembolism including patients with mechanical heart valves: 3 - 4.5 Performed By: #### B MP, CBC, LIPASE, HEPATIC #### [place] [id number] [facility] PT Coag (PPP) [Time] 10.6 s Normal 9.0-12.9 [facility] Comment on above: Result Comment: A he matocrit value greater than 55% may lead to inaccurate results in coagulation testing. Patients having hematocrit values >55% require a special collection tube for coagulation studies. Please contact the laboratory at [phone] for redraw instructions. Performed By: #### B MP, CBC, LIPASE, HEPATIC #### [facility] [address] Prothrombin time (PT)Ordered By: Gisell Howard on 08-18-2024 PT Coag (PPP) [Time] Prothrombin time (PT) 9.0- 12.9 [facility] Comment on above: A hematocrit value g reater than 55% may lead to inaccurate results in coagulation testing. Patients having hematocrit values >55% require a special collection tube for coagulation studies. Please contact the laboratory at [phone] for redraw instructions. RBC Auto (Bld) [#/Vol]Ordere d By: Gisell Howard on 08-18-2024 RBC (Bld) [#/Vol] Erythrocytes [#/volu me] in Blood by Automated count 3.60-5.00 [facility] Serum or plasma albumin/glob ulin mass ratioOrdered By: Gisell Howard on 08-18-2024 Albumin/Globulin [Mass ratio] Serum or plasma albumin/globulin mass ratio [facility] Serum or plasma anion gap de terminationOrdered By: Gisell Howard on 08-18-2024 Anion gap [Moles/Vol] Serum or plasma an ion gap determination 6.0-15.0 [facility] Serum or plasma non-glucuron idated bilirubin measurement (mass/volume)Ordered By: Gisell Howard on 08-18-2024 Bilirubin.indirect [Mass/Vol] Serum or plasma non-glucuronidated bilirubin measurement (mass/volume) [facility] Sodium [Moles/volume] in Ser um or PlasmaOrdered By: Gisell Howard on 08-18-2024 Sodium [Moles/Vol] Sodium [Moles/volume ] in Serum or Plasma 136-145 [facility] Specific gravity Test strip (U) [Rel density]Ordered By: ERIN TEMP on 08-18-2024 Specific gravity (U) [Rel density] Specific gravity of Urine by Test strip 1.001-1.03 0 [facility] Stool Occult Blood (Guaiac)o n 08-18-2024 Stool Occult Blood (Guaiac) Occult Blood Negative for Occult Blood by Guaiac Methodology ------ Reference range = Negative PERFORMED BY: [facility] [address] [place] [address] PATHOLOGIST POWER STATION OPERATOR SHANIKA PERRY M.D. Normal [facility] Comment on above: Performed By: #### B MP, CBC, LIPASE, HEPATIC #### [facility] [address] Stool gastrointestinal hemog lobin detectionOrdered By: Gisell Howard on 08-18-2024 Hemoglobin.gastrointest inal Ql (Stl) Stool gastrointestinal hemoglobin detection [facility] Urea nitrogen [Mass/volume] in Serum or PlasmaOrdered By: Gisell Howard on 08-18-2024 Urea nitrogen [Mass/Vol] Urea nitrogen [Mass/volume] in Serum or Plasma 11-30 [facility] Urinalysison 08-18-2024 Appearance (U) Clear Normal Clear [facility] Comment on above: Order Comment: Name Collection Type:: Clean-Voided Midstream Performed By: #### B UN, LYTES, CREAT, PTH, CA, URIC #### [facility] [address] [place] [address] [place] Bilirubin,Urine Negative Normal Negative [facility] Comment on above: Order Comment: Name Collection Type:: Clean-Voided Midstream Performed By: #### B UN, LYTES, CREAT, PTH, CA, URIC #### [facility] [address] [place] [address] [place] Color (U) Colorless Normal Yellow [facility] Comment on above: Order Comment: Name Collection Type:: Clean-Voided Midstream Performed By: #### B UN, LYTES, CREAT, PTH, CA, URIC #### [facility] [address] [place] [address] [place] Glucose Ql (U) Normal Normal Normal [facility] Comment on above: Order Comment: Name Collection Type:: Clean-Voided Midstream Performed By: #### B UN, LYTES, CREAT, PTH, CA, URIC #### [address] Ketones Ql (U) Negative Normal Negative [facility] Comment on above: Order Comment: Name Collection Type:: Clean-Voided Midstream Performed By: #### B UN, LYTES, CREAT, PTH, CA, URIC #### [address] Leukocyte esterase Test strip Ql (U) Negative Normal Negative [facility] Comment on above: Order Comment: Name Collection Type:: Clean-Voided Midstream Performed By: #### B UN, LYTES, CREAT, PTH, CA, URIC #### [address] Nitrite,Urine Negative Normal Negative The [facility] Comment on above: Order Comment: Name Collection Type:: Clean-Voided Midstream Performed By: #### B UN, LYTES, CREAT, PTH, CA, URIC #### [address] Occult Blood,Urine Negative Normal Negative [facility] Comment on above: Order Comment: Name Collection Type:: Clean-Voided Midstream Result Comment: PERF ORMED BY: [place] [address] PATHOLOGIST POWER STATION OPERATOR SHANIKA PERRY M.D. Performed By: #### B UN, LYTES, CREAT, PTH, CA, URIC #### [address] pH (U) 7.0 [pH] Normal 5.0-9.0 [facility] Comment on above: Order Comment: Name Collection Type:: Clean-Voided Midstream Performed By: #### B UN, LYTES, CREAT, PTH, CA, URIC #### [place] [address] [place] Protein,Urine Negative Normal Negative The [facility] Comment on above: Order Comment: Name Collection Type:: Clean-Voided Midstream Performed By: #### B UN, LYTES, CREAT, PTH, CA, URIC #### [facility] [address] Specificy [place],Urine 1.012 Normal 1.00 1-1.03 0 [facility] Comment on above: Order Comment: Name Collection Type:: Clean-Voided Midstream Performed By: #### B UN, LYTES, CREAT, PTH, CA, URIC #### [facility] [address] Urobilinogen,Urine Normal Normal Normal [facility] Comment on above: Order Comment: Name Collection Type:: Clean-Voided Midstream Performed By: #### B UN, LYTES, CREAT, PTH, CA, URIC #### [facility] [address] Urobilinogen Test strip (U) [Mass/Vol]Ordered By: ERIN YANG on 08-18-2024 Urobilinogen (U) [Mass/Vol] Urobilinogen [Mass/volume] in Urine by Test strip Normal [facility] WBC Auto (Bld) [#/Vol]Ordere d By: Gisell Howard on 08-18-2024 WBC (Bld) [#/Vol] Leukocytes [#/volume ] in Blood by Automated count 3.8-11.6 [facility] aPTT in Platelet poor plasma by Coagulation assayOrdered By: Gisell Howard on 08-18-2024 aPTT Coag (PPP) [Time] Activated partial thromboplastin time (aPTT) in platelet poor plasma by coagulation a 25.1-36.5 [facility] Comment on above: A hematocrit value g reater than 55% may lead to inaccurate results in coagulation testing. Patients having hematocrit values >55% require a special collection tube for coagulation studies. Please contact the laboratory at [phone] for redraw instructions. pH Test strip (U)Ordered By: PROVIDER CELIA on 08-18-2024 pH (U) pH of Urine by Test strip 5.0-9.0 [facility] No Panel InformationOrdered By: Pat Barnett on 07-30-2024 Quick Strep (POC) [facility] CNTHERAPYon 07-27-2024 CNTHERAPY OT/PT/Speech Visit ([facility]) -------- HANK LIU ([id number]) 1970 F Date Time Provider Department 07/27/24 3:00 PM HEATHER JOLLY [facility] Date Time Provider Department Center 07/27/2024 3:00 PM [id number] [place] [facility] Reason for Visit: PT Progress Note [1596] Primary Visit Diagnosis:Pelvic floor tension [M62.89] Allergies As of Date: 07/27/2024 Noted Allergy Reaction IODINE 04/18/2017 4 - Hives 10 - Anaphylaxis 12 - Shortness of Breath Comments: Other reaction(s): anaphylaxis Other reaction(s): Unknown ATORVASTATIN 05/25/2021 14 - Other: See Comments Comments: Other Reaction(s): arthralgia/myalgia BUPROPION 05/10/2023 14 - Other: See Comments Comments: Other Reaction(s): Other: See Comments IODINATED CONTRAST MEDIA 11/29/2018 4 - Hives 14 - Other: See Comments 12 - Shortness of Breath Comments: Other reaction(s): Difficulty Breathing Other Reaction(s): Difficulty Breathing, Other: See Comments Other reaction(s): Difficulty Breathing MIRTAZAPINE 05/25/2021 - Hives 14 - Other: See Comments NALBUPHINE 04/18/2017 12 - Shortness of Breath 14 - Other: See Comments 17 - Myalgia Comments: Other Reaction(s): muscle spams, and breathing, Unknown NUBAIN (NALBUPHINE HCL) 04/18/2017 16 - Unknown Date Reviewed: 06/01/2024 Reviewed by: Noemy Francisco Ma - Fully Assessed Prescriptions as of 07/27/2024 - senna-docusate (SENEXON-S) 8.6-50 mg per tablet TAKE 2 TABLETS BY MOUTH AT BEDTIME - esomeprazole (NEXIUM) 40 mg capsule Take 40 mg by mouth daily at bedtime. - cefUROXime (CEFTIN) 500 mg tablet Take 500 mg by mouth two times a day. - sucralfate (CARAFATE) 1 gram tablet Take 1 tablet by mouth three times a day. - pantoprazole DR (PROTONIX) 40 mg tablet Take 1 tablet by mouth once daily. - hyoscyamine SR (LEVBID) 0.375 mg 12 hr tablet Take 1 tablet by mouth two times a day. - rosuvastatin (CRESTOR) 40 mg tablet Take 40 mg by mouth daily at bedtime. - traZODone (DESYREL) 100 mg tablet Take 100 mg by mouth daily at bedtime. - rOPINIRole (REQUIP) 0.25 mg tablet Take 0.5 mg by mouth once daily as needed. Binder Layer: Addendum Therapy (PT/OT/Speech/Resp) ID: [id number] 07/27/2024 3:59 PM Author: HEATHER JOLLY Signed by HEATHER JOLLY PT on 07/27/2024 at 3:59 PM * * * This document replaces document [id number] * * * Document text: Program_ID:[id number] Access Code: [email or web address] URL: [email or web address] Date: 07-27-2024 Prepared By: Heather Jolly Program Notes Exercises - Abdominal Massage - 2-3 x daily - 7 x weekly - 1 sets - 10 reps - SMFR ball to hips and spine - 1 x daily - 7 x weekly - 1 sets - reps - Thoracic Spine Moblizations with Towel Roll - 1 x daily - 5 x weekly - 1 sets - reps - Cervical Extension AROM with Strap - 1 x daily - 5 x weekly - 1 sets - 5 reps - Seated Scapular Retraction - 1 x daily - 5 x weekly - 1 sets - 5 reps - Seated Trunk Rotation - 1 x daily - 5 x weekly - 1 sets - 5 reps - Seated Punches with Trunk Rotation - 1 x daily - 5 x weekly - 1 sets - 5 reps - Doorway Pec Stretch at 90 Degrees Abduction - 1 x daily - 5 x weekly - 1 sets - 5 reps - Seated Cervical Rotation AROM - 1 x daily - 5 x weekly - 1 sets - 5 reps - Crocodile breathing - 1 x daily - 7 x weekly - 1 sets - 1 reps - Prone abdominal massage with pilates ball - 1 x daily - 3 x weekly - 1 sets - 1 reps - Inverted breathing with and without blocks under knees - 1 x daily - 7 x weekly - 1 sets - 8 reps - hip crossbody stretch - 1 x daily - 5 x weekly - 1 sets - 3 reps - External Pelvic Floor Awareness - 1 x daily - 7 x weekly - 1 sets - 10 reps - Seated prayer stretch for back body expansion - 1 x daily - 7 x weekly - 1 sets - 10 reps Normal [facility] THERAPY NTon 07-27-2024 THERAPY NT HNO ID: [id number] Author: HEATHER JOLLY PT Service: ? Author Type: Physical Therapist Type: Therapy (PT/OT/Speech/Resp) Filed: 07/27/2024 15:59 Note Text: Program_ID:[id number] Access Code: [email or web address] URL: [email or web address] Date: 07-27-2024 Prepared By: Heather Jolly Program Notes Exercises - Abdominal Massage - 2-3 x daily - 7 x weekly - 1 sets - 10 reps - SMFR ball to hips and spine - 1 x daily - 7 x weekly - 1 sets - reps - Thoracic Spine Moblizations with Towel Roll - 1 x daily - 5 x weekly - 1 sets - reps - Cervical Extension AROM with Strap - 1 x daily - 5 x weekly - 1 sets - 5 reps - Seated Scapular Retraction - 1 x daily - 5 x weekly - 1 sets - 5 reps - Seated Trunk Rotation - 1 x daily - 5 x weekly - 1 sets - 5 reps - Seated Punches with Trunk Rotation - 1 x daily - 5 x weekly - 1 sets - 5 reps - Doorway Pec Stretch at 90 Degrees Abduction - 1 x daily - 5 x weekly - 1 sets - 5 reps - Seated Cervical Rotation AROM - 1 x daily - 5 x weekly - 1 sets - 5 reps - Crocodile breathing - 1 x daily - 7 x weekly - 1 sets - 1 reps - Prone abdominal massage with pilates ball - 1 x daily - 3 x weekly - 1 sets - 1 reps - Inverted breathing with and without blocks under knees - 1 x daily - 7 x weekly - 1 sets - 8 reps - hip crossbody stretch - 1 x daily - 5 x weekly - 1 sets - 3 reps - External Pelvic Floor Awareness - 1 x daily - 7 x weekly - 1 sets - 10 reps - Seated prayer stretch for back body expansion - 1 x daily - 7 x weekly - 1 sets - 10 reps Normal [facility] Basophils Auto (Bld) [#/Vol] Ordered By: Luis Fernando Dela Cruz on 07-19-2024 Basophils (Bld) [#/Vol] Automated basophil count 0.0-0.2 [facility] Basophils/100 WBC Auto (Bld) Ordered By: Luis Fernando Dela Cruz on 07-19-2024 Basophils/100 WBC (Bld) Automated basophil % . [facility] BioFire Not Detectedon 07-19 BioFire Not Detected Not detected Normal Not Detecte [facility] Comment on above: Result Comment: This is a duplicate RP2.1 COVID (PCR) result to be used for statistical tracking purpose only. PERFORMED BY: [place] [address] PATHOLOGIST POWER STATION OPERATOR SHANIKA PERRY M.D. Performed By: #### B MP, CBC, LIPASE, HEPATIC #### [address] Blood Cultureon 07-19-2024 Bacteria identified Cx Nom (Bld) Comment 2 sets NO GROWTH 5 DAYS PERFORMED BY: [place] [address] PATHOLOGIST POWER STATION OPERATOR SAHNIKA PERRY M.D. Normal [facility] Comment on above: Performed By: #### B MP, CBC, LIPASE, HEPATIC #### [address] Bacteria identified Cx Nom (Bld) NO GROWTH 5 DAYS PERFORMED BY: [place] [address] PATHOLOGIST POWER STATION OPERATOR SHANIKA PERRY M.D. Normal [facility] Comment on above: Performed By: #### B MP, CBC, LIPASE, HEPATIC #### [address] C reactive protein [Mass/vol ume] in Serum or PlasmaOrdered By: Luis Fernando Dela Cruz on 07-19-2024 CRP [Mass/Vol] C reactive protein [Mass/volume] in Serum or Plasma 0.0-0.5 [facility] C-Reactive Proteinon 025 C-Reactive Protein 0.5 mg/dL Normal 0.0-0.5 [facility] Comment on above: Result Comment: PERF ORMED BY: [place] [address] PATHOLOGIST POWER STATION OPERATOR SHANIKA PERRY M.D. Performed By: #### B MP, CBC, LIPASE, HEPATIC #### [address] COVID-19 Detected/Not Detect edOrdered By: Luis Fernando Dela Cruz on 07-19-2024 SARS-CoV-2 (COVID-19) RNA ADONAY+non-probe Ql (Nph) Not detected Not Detecte [facility] Comment on above: This is a duplicate RP2.1 COVID (PCR) result to be used for statistical tracking purpose only. Complete Blood Count Auto Di ffon 07-19-2024 Basophils (Bld) [#/Vol] 0.1 10*3/uL Normal 0.0-0.2 [facility] Comment on above: Result Comment: PERF ORMED BY: [place] [address] PATHOLOGIST POWER STATION OPERATOR SHANIKA PERRY M.D. Performed By: #### B MP, CBC, LIPASE, HEPATIC #### [address] Basophils/100 WBC (Bld) 0.8 % Normal . T [facility] Comment on above: Performed By: #### B MP, CBC, LIPASE, HEPATIC #### [address] Eosinophils (Bld) [#/Vol] 0.4 10*3/uL Normal 0.0-0.45 [facility] Comment on above: Performed By: #### B MP, CBC, LIPASE, HEPATIC #### [address] Eosinophils/100 WBC (Bld) 6.4 % Normal . [facility] Comment on above: Performed By: #### B MP, CBC, LIPASE, HEPATIC #### [address] Erythrocyte distribution width (RBC) [Ratio] 14.1 % Normal 11.9-15.3 [facility] Comment on above: Performed By: #### B MP, CBC, LIPASE, HEPATIC #### [address] Hematocrit (Bld) [Volume fraction] 37.9 % Normal 34.0-46.4 [facility] Comment on above: Performed By: #### B MP, CBC, LIPASE, HEPATIC #### [address] Hemoglobin (Bld) [Mass/Vol] 13.0 g/dL Normal 11.8-15.4 [facility] Comment on above: Performed By: #### B MP, CBC, LIPASE, HEPATIC #### [place] [address] [place] Lymphocytes (Bld) [#/Vol] 1.5 10*3/uL Normal 1.00-4.8 [facility] Comment on above: Performed By: #### B MP, CBC, LIPASE, HEPATIC #### [address] Lymphocytes/100 WBC (Bld) 23.5 % Normal . [facility] Comment on above: Performed By: #### B MP, CBC, LIPASE, HEPATIC #### [address] MCH (RBC) [Entitic mass] 28.0 pg Normal 24.7-34.3 [facility] Comment on above: Performed By: #### B MP, CBC, LIPASE, HEPATIC #### [address] MCV (RBC) [Entitic vol] 81.6 fL Normal 80-100 [facility] Comment on above: Performed By: #### B MP, CBC, LIPASE, HEPATIC #### [address] Mean Corpuscular HGB Conc 34.3 g/dL Normal 32.0-35.0 [facility] Comment on above: Performed By: #### B MP, CBC, LIPASE, HEPATIC #### [address] Monocytes (Bld) [#/Vol] 0.5 10*3/uL Normal 0.0-0.8 [facility] Comment on above: Performed By: #### B MP, CBC, LIPASE, HEPATIC #### [address] Monocytes/100 WBC (Bld) 8.1 % Normal . T [facility] Comment on above: Performed By: #### B MP, CBC, LIPASE, HEPATIC #### [address] Neutrophils (Bld) [#/Vol] 3.9 10*3/uL Normal 1.8-7.7 [facility] Comment on above: Performed By: #### B MP, CBC, LIPASE, HEPATIC #### [address] Neutrophils/100 WBC (Bld) 61.2 % Normal . [facility] Comment on above: Performed By: #### B MP, CBC, LIPASE, HEPATIC #### [address] NRBC% 0.1 /100{WBC} Normal 0-0.5 [facility] Comment on above: Performed By: #### B MP, CBC, LIPASE, HEPATIC #### [address] Platelet mean volume (Bld) [Entitic vol] 7.6 fL Normal 6.3-10.7 [facility] Comment on above: Performed By: #### B MP, CBC, LIPASE, HEPATIC #### [address] Platelets (Bld) [#/Vol] 289 10*3/uL Normal 150-450 [facility] Comment on above: Performed By: #### B MP, CBC, LIPASE, HEPATIC #### [address] RBC (Bld) [#/Vol] 4.64 10*6/uL Normal 3.60-5.00 [facility] Comment on above: Performed By: #### B MP, CBC, LIPASE, HEPATIC #### [address] WBC (Bld) [#/Vol] 6.4 10*3/uL Normal 3.8-11.6 [facility] Comment on above: Performed By: #### B MP, CBC, LIPASE, HEPATIC #### [place] [address] [place] Eosinophils Auto (Bld) [#/Vo l]Ordered By: Luis Fernando Dela Cruz on 07-19-2024 Eosinophils (Bld) [#/Vol] Automated eosinophil count 0.0-0.45 [facility] Eosinophils/100 WBC Auto (Bl d)Ordered By: Luis Fernando Dela Cruz on 07-19-2024 Eosinophils/100 WBC (Bld) Automated eosinophil % . [facility] Erythrocyte distribution wid th Auto (RBC) [Ratio]Ordered By: Luis Fernando Dela Cruz on 07-19-2024 Erythrocyte distribution width (RBC) [Ratio] Erythrocyte distribution width [Ratio] by Automated count 11.9-15.3 [facility] Hematocrit Auto (Bld) [Volum e fraction]Ordered By: Luis Fernando Dela Cruz on 07-19-2024 Hematocrit (Bld) [Volume fraction] Hematocrit [Volume Fraction] of Blood by Automated count 34.0-46.4 [facility] Hemoglobin [Mass/volume] in BloodOrdered By: Luis Fernando Dela Cruz on 07-19-2024 Hemoglobin (Bld) [Mass/Vol] Hemoglobin [Mass/volume] in Blood 11.8-15.4 [facility] Laboratory - Microbiology an d Antimicrobial susceptibilityOrdered By: Luis Fernando Dela Cruz on 07-19-2024 Bacteria identified Cx Nom (Bld) NO GROWTH 5 DAYS [facility] Leukocytes [#/volume] correc thor for nucleated erythrocytes in Blood by Automated counOrdered By: Luis Fernando Dela Cruz on 07-19-2024 WBC corrected for nucl RBC Auto (Bld) [#/Vol] Leukocytes [#/volume] corrected for nucleated erythrocytes in Blood by Automated coun 3.8-11.6 [facility] Lymphocytes Auto (Bld) [#/Vo l]Ordered By: Luis Fernando Dela Cruz on 07-19-2024 Lymphocytes (Bld) [#/Vol] Lymphocytes [#/volume] in Blood by Automated count 1.00-4.8 [facility] Lymphocytes/100 WBC Auto (Bl d)Ordered By: Luis Fernando Dela Cruz on 07-19-2024 Lymphocytes/100 WBC (Bld) Lymphocytes/100 leukocytes in Blood by Automated count . [facility] MCH Auto (RBC) [Entitic mass ]Ordered By: Luis Fernando Dela Cruz on 07-19-2024 MCH (RBC) [Entitic mass] MCH [Entitic mass] by Automated count 24.7-34.3 [facility] MCHC Auto (RBC) [Mass/Vol]Or dered By: Luis Fernando Dela Cruz on 07-19-2024 MCHC (RBC) [Mass/Vol] MCHC [Mass/volume] by Automated count 32.0-35.0 [facility] MCV Auto (RBC) [Entitic vol] Ordered By: Luis Fernando Dela Cruz on 07-19-2024 MCV (RBC) [Entitic vol] MCV [Entitic vol ume] by Automated count 80-100 [facility] Monocytes Auto (Bld) [#/Vol] Ordered By: Luis Fernando Dela Cruz on 07-19-2024 Monocytes (Bld) [#/Vol] Automated blood monocyte count 0.0-0.8 [facility] Monocytes/100 WBC Auto (Bld) Ordered By: LuisF ernando Dela Cruz on 07-19-2024 Monocytes/100 WBC (Bld) Automated monocyte % . [facility] Neutrophils Auto (Bld) [#/Vo l]Ordered By: Luis Fernando Dela Cruz on 07-19-2024 Neutrophils (Bld) [#/Vol] Neutrophils [#/volume] in Blood by Automated count 1.8-7.7 [facility] Neutrophils/100 WBC Auto (Bl d)Ordered By: Luis Fernando Dela Cruz on 07-19-2024 Neutrophils/100 WBC (Bld) Automated neutrophil % . [facility] Nucleated erythrocytes [Pres ence] in Blood by Automated countOrdered By: Luis Fernando Dela Cruz on 07-19-2024 Nucleated RBC Auto Ql (Bld) Nucleated erythrocytes [Presence] in Blood by Automated count 0-0.5 [facility] Platelet mean volume Auto (B ld) [Entitic vol]Ordered By: Luis Fernando Dela Cruz on 07-19-2024 Platelet mean volume (Bld) [Entitic vol] Platelet mean volume [Entitic volume] in Blood by Automated count 6.3-10.7 [facility] Platelets Auto (Bld) [#/Vol] Ordered By: Luis Fernando Dela Cruz on 07-19-2024 Platelets (Bld) [#/Vol] Platelets [#/vol ume] in Blood by Automated count 150-450 [facility] RBC Auto (Bld) [#/Vol]Ordere d By: Luis Fernando Dela Cruz on 07-19-2024 RBC (Bld) [#/Vol] Erythrocytes [#/volu me] in Blood by Automated count 3.60-5.00 [facility] Respiratory (Upper) Panel, P CRon 07-19-2024 Respiratory (Upper) Panel, PCR Adenovirus Not detected Bordetella parapertussis Not detected Chlamydia pneumoniae Not detected Coronavirus 229E Not detected Coronavirus HKU1 Detected Coronavirus NL63 Not detected Coronavirus OC43 Not detected Influenza A Not detected Influenza B Not detected Human Metapneumovirus Not detected Mycoplasma pneumoniae Not detected Parainfluenza Virus 1 Not detected Parainfluenza Virus 2 Not detected Parainfluenza Virus 3 Not detected Parainfluenza Virus 4 Not detected Bordetella pertussis-ptxP Not detected Human Rhino/Enterovirus Not detected Resp. Syncytial Virus Not detected COVID-19 Detected/Not Detected Not detected Blank Space ------ FLUA TEST INCLUDES Influenza A tests for the following clinically FLUA TEST INCLUDES significant subtypes: FLUA TEST INCLUDES - Influenza A FLUA TEST INCLUDES - Influenza A H1 FLUA TEST INCLUDES - Influenza A H1 2009 FLUA TEST INCLUDES - Influenza A H3 Blank Space ------ PERFORMED BY: [place] [address] PATHOLOGIST POWER STATION OPERATOR SHANIKA Winters [facility] Comment on above: Performed By: #### B MP, CBC, LIPASE, HEPATIC #### [address] Respiratory pathogens DNA an d RNA panel - Nasopharynx by ADONAY with non-probe detectionOrdered By: Luis Fernando Dela Cruz on 07-19-2024 Respiratory pathogens DNA and RNA panel ADONAY+non-probe (Nph) Respiratory pathogens DNA and RNA panel - Nasopharynx by ADONAY with non-probe detection [facility] WBC Auto (Bld) [#/Vol]Ordere d By: Luis Fernando Dela Cruz on 07-19-2024 WBC (Bld) [#/Vol] Leukocytes [#/volume ] in Blood by Automated count 3.8-11.6 [facility] Anti-Streptolysin O Antibody on 07-16-2024 Anti-Streptolysin O Antibody 42.5 [IU]/mL Normal 0.0-200.0 [facility] Comment on above: Result Comment: Perf ormed at: [place] [address] Manager Of Merchandising: Zbigniew Deluca PhD, Phone: [phone] Performed By: #### B UN, LYTES, CREAT, PTH, CA, URIC #### [address] EBV Ab VCA, IgGon 07-16-2024 EBV Ab VCA, IgG 438.0 High 0.0-17.9 [facility] Comment on above: Result Comment: Nega tive <18.0 Equivocal 18.0 - 21.9 Positive >21.9 Performed By: #### B UN, LYTES, CREAT, PTH, CA, URIC #### [address] EBV Ab VCA, IgMon 07-16-2024 EBV Ab VCA, IgM <36.0 Normal 0.0-35.9 [facility] Comment on above: Result Comment: Nega tive <36.0 Equivocal 36.0 - 43.9 Positive >43.9 Performed at: [place] [address] Manager Of Merchandising: Zbigniew Deluca PhD, Phone: [phone] PERFORMED BY: [place] [address] PATHOLOGIST POWER STATION OPERATOR SHANIKA PERRY M.D. Performed By: #### B UN, LYTES, CREAT, PTH, CA, URIC #### [address] Chidi-Craig Virus Early Melody GGon 07-16-2024 Chidi-Craig Virus Early AgIGG <9.0 Normal 0.0-8.9 [facility] Comment on above: Result Comment: Nega tive < 9.0 Equivocal 9.0 - 10.9 Positive >10.9 Performed By: #### B UN, LYTES, CREAT, PTH, CA, URIC #### [address] [place] [address] [facility] Serum DNA single strand IgG antibody assay (units/volume)Ordered By: Luis Fernando Dela Cruz on 07-16-2024 DNA single strand IgG Qn (S) Serum DNA single strand IgG antibody assay (units/volume) 0-120 [facility] Comment on above: Results verified b y repeat testingLimit of assay detection is <78Performed at: [facility] [employer] [id number] Director: Corey Issa MD, Phone: [phone] Serum Chidi Craig virus cap raisa IgG antibody assay (units/volume)Ordered By: Luis Fernando Dela Cruz on 07-16-2024 EBV capsid IgG Qn (S) Chidi Craig virus capsid IgG Ab [Units/volume] in Serum 0.0-35.9 [facility] Comment on above: Negative <18.0 Equiv ocal 18.0 - 21.9 Positive >21.9 Negative <36.0 Equiv ocal 36.0 - 43.9 Positive >43.9Performed at: [address] [id number] Director: Zbigniew Deluca PhD, Phone: [phone] Serum Chidi Craig virus ear ly IgG antibody assay (units/volume)Ordered By: Luis Fernando Dela Cruz on 07-16-2024 EBV early IgG Qn (S) Serum Chidi Craig virus early IgG antibody assay (units/volume) 0.0-8.9 [facility] Comment on above: Negative < 9.0 Equiv ocal 9.0 - 10.9 Positive >10.9 Strep DNase B Antibodyon Strep DNase B Antibody <78 Normal 0-120 [facility] Comment on above: Result Comment: Re sults verified by repeat testing Limit of assay detection is <78 Performed at: [facility] [employer] [id number] Manager Of Merchandising: Corey Issa MD, Phone: [phone] Performed By: #### B UN, LYTES, CREAT, PTH, CA, URIC #### [facility] [address] [place] [address] [place] Streptolysin O Ab [Units/vol ume] in Serum or PlasmaOrdered By: Luis Fernando Dela Cruz on 07-16-2024 Streptolysin O Ab Qn Streptolysin O Ab [Units/volume] in Serum or Plasma 0.0-200.0 [facility] Comment on above: Performed at: [facility] [employer] [id number] Director: Zbigniew Deluca PhD, Phone: [phone] Laboratory - Chemistry and C hemistry - challengeon 07-05-2024 Bilirubin Ql (U) Negative [facility] Glucose (U) [Mass/Vol] Negative [facility] Ketones Ql (U) Negative [facility] pH (U) 6.5 [pH] [facility] Specific gravity (U) [Rel density] 1.025 [facility] Laboratory - Specimen inform ationon 07-05-2024 Appearance (U) cloudy [facility] Color (U) yellow [facility] Laboratory - Urinalysison Leukocyte esterase Test strip Ql (U) Negative [facility] Nitrite Ql (U) Negative [facility] Protein Ql (U) Negative [facility] No Panel InformationOrdered By: Hernando Hylton on 07-05-2024 Quick Strep (POC) [facility] Quick Strep (POC) [facility] No Panel Informationon 07-05 Urine Occult Blood Negative [facility] Urine Urobilinogen 0.2E.U./dl [facility] Urine Cultureon 07-05-2024 Bacteria identified Cx Nom (U) ORGANISM: Escherichia coli (O:ESCCOL) [place] Count 10,000 Aerobic ТАТЬЯНА Charge (NMIC56) - SUSCEPTIBILITY ORGANISM: O:ESCCOL ANTIBIOTIC INTERPRETATION ТАТЬЯНА Amikacin S <16 Amoxacillin/K Clavulanate S <8 Ampicillin S <8 Ampicillin/Sulbactam S <4 Aztreonam S <4 Cefazolin S <2 Cefepime S <2 Ceftazidime S <1 Ceftazidime/Avibactam S <4 Ceftolozane/Tazobactam S <2 Ceftriaxone S <1 Cefuroxime S <4 Ciprofloxacin S <0.25 Ertapenem S <0.5 Gentamicin S <2 Levofloxacin S <0.5 Meropenem S <1 Meropenem/Vaborbactam S <2 Nitrofurantoin S <32 Piperacillin/Tazobactam S <8 Tetracycline S <4 Tigecycline S <2 Tobramycin S <2 Trimethoprim/Sulfamethox azole S <0.5 S = SUSCEPTIBLE I = INTERMEDIATE R = RESISTANT BLANK = DATA NOT AVAILABLE, OR DRUG NOT ADVISABLE OR TESTED R* = RESISTANCE DUE TO EXTENDED SPECTRUM BETA-LACTAMASES ESBL = EXTENDED SPECTRUM BETA-LACTAMASE TFG = THYMIDINE-DEPENDENT STRAIN KARI = BETA-LACTAMASE POSITIVE IB = INDUCIBLE BETA-LACTAMASE. APPEARS IN PLACE OF 'S' WITH SPECIES KNOWN TO POSSESS INDUCIBLE BETA-LACTAMASES. POTENTIALLY THEY MAY BECOME RESISTANT TO ALL B-LACTAM DRUGS. PERFORMED BY: [place] [address] PATHOLOGIST POWER STATION OPERATOR SHANIKA PERRY M.D. Normal [facility] Comment on above: Performed By: #### B MP, CBC, LIPASE, HEPATIC #### [address] Urine cultureOrdered By: Mihir Hylton on 07-05-2024 Bacteria identified Cx Nom (U) Escherichia coli Abnormal [facility] COMPLEMENT DEFICIENCY SAYon 06-18-2024 [facility] COMPLEMENT DEF ASSAY 54.8 U/mL 41.7 - 95.1 U/mL [facility] Comment on above: Total complement fun ction test is used as an aid in diagnosis of complement deficiencies. It measures the function of the classical pathway including terminal complement components. Clinical correlation is required. Specimen Type: BLOOD SPECIMEN Ordering Facility: [facility] Address: [address] [place] [address] Original Ordering Provider: ANGEL ULLOA [facility] CNTHERAPYon 06-15-2024 CNTHERAPY OT/PT/Speech Visit (PTAMCF) -------- HANK LIU ([id number]) 1970 F Date Time Provider Department 06/15/24 11:45 AM JOSEPHHEATHER [facility] Date Time Provider Department [place] 06/15/2024 11:45 AM [id number] for Visit: Appointment Cancelled [1023] Primary Visit Diagnosis:Pelvic floor tension [M62.89] Allergies As of Date: 06/15/2024 Noted Allergy Reaction IODINE 04/18/2017 4 - Hives 10 - Anaphylaxis 12 - Shortness of Breath Comments: Other reaction(s): anaphylaxis Other reaction(s): Unknown ATORVASTATIN 05/25/2021 14 - Other: See Comments Comments: Other Reaction(s): arthralgia/myalgia BUPROPION 05/10/2023 14 - Other: See Comments Comments: Other Reaction(s): Other: See Comments IODINATED CONTRAST MEDIA 11/29/2018 4 - Hives 14 - Other: See Comments 12 - Shortness of Breath Comments: Other reaction(s): Difficulty Breathing Other Reaction(s): Difficulty Breathing, Other: See Comments Other reaction(s): Difficulty Breathing MIRTAZAPINE 05/25/2021 4 - Hives 14 - Other: See Comments NALBUPHINE 04/18/2017 12 - Shortness of Breath 14 - Other: See Comments 17 - Myalgia Comments: Other Reaction(s): muscle spams, and breathing, Unknown NUBAIN (NALBUPHINE HCL) 04/18/2017 16 - Unknown Date Reviewed: 06/01/2024 Reviewed by: Noemy Francisco Ma - Fully Assessed Prescriptions as of 06/15/2024 - esomeprazole (NEXIUM) 40 mg capsule Take 40 mg by mouth daily at bedtime. - cefUROXime (CEFTIN) 500 mg tablet Take 500 mg by mouth two times a day. - sucralfate (CARAFATE) 1 gram tablet Take 1 tablet by mouth three times a day. - pantoprazole DR (PROTONIX) 40 mg tablet Take 1 tablet by mouth once daily. - hyoscyamine SR (LEVBID) 0.375 mg 12 hr tablet Take 1 tablet by mouth two times a day. - senna-docusate (SENOKOT-S) 8.6-50 mg per tablet Take 2 tablets by mouth daily at bedtime. - rosuvastatin (CRESTOR) 40 mg tablet Take 40 mg by mouth daily at bedtime. - traZODone (DESYREL) 100 mg tablet Take 100 mg by mouth daily at bedtime. - rOPINIRole (REQUIP) 0.25 mg tablet Take 0.5 mg by mouth once daily as needed. Normal [facility] COMPLEMENT DEFICIENCY ASSAYo n 06-15-2024 COMPLEMENT DEF ASSAY 54.8 U/mL Normal 41.7-95.1 [facility] Comment on above: Order Comment: Speci men Type: BLOOD SPECIMEN Ordering Facility: [facility] Address: [address] [place] [address] Result Comment: Tota l complement function test is used as an aid in diagnosis of complement deficiencies. It measures the function of the classical pathway including terminal complement components. Clinical correlation is required. Performed By: #### D IPTET, C1EST #### [facility] CLIA [id number] [address] [place] [address] B-Type Natriuretic Peptideon 06-08-2024 Natriuretic peptide B (Bld) [Mass/Vol] 11.0 pg/mL Normal 5-100 [facility] Comment on above: Result Comment: PERF ORMED BY: [facility] [address] [place] [address] PATHOLOGIST POWER STATION OPERATOR SHANIKA PERRY M.D. Performed By: #### B MP, CBC, LIPASE, HEPATIC #### [address] D-Dimer High Sensitivityon 0 06-08-2024 D-Dimer High Sensitivity 235 ng/mL Normal 0-243 [facility] Comment on above: Result Comment: The reference range for D-dimer is <243 ng/mL D-dimer units. D-dimer results must be used in conjunction with a clinical pretest probability (PTP) assessment model for deep vein thrombosis (DVT) and pulmonary embolism (PE). Results <230 ng/mL d-dimer units can be used as a negative predictor in patients with low or moderate probability for DVT/PE. Results above the exclusion threshold of 230 ng/ml D-dimer units for DVT/PE may indicate the need for further diagnostic testing. D-Dimer can be increased in hospitalized patients due to co-morbid conditions. A hematocrit value greater than 55% may lead to inaccurate results in coagulation testing. Patients having hematocrit values >55% require a special collection tube for coagulation studies. Please contact the laboratory at [phone] for redraw instructions. PERFORMED BY: [place] [address] PATHOLOGIST POWER STATION OPERATOR SHANIKA PERRY M.D. Performed By: #### B MP, CBC, LIPASE, HEPATIC #### [address] Erythrocyte Sedimentation Ra tereza 06-08-2024 ESR (Bld) [Velocity] 5 mm/h Normal 0-29 [facility] Comment on above: Result Comment: PERF ORMED BY: [place] [address] PATHOLOGIST POWER STATION OPERATOR SHANIKA PERRY M.D. Performed By: #### B MP, CBC, LIPASE, HEPATIC #### [address] Erythrocyte sedimentation ra te by Photometric methodOrdered By: Trinity Monet on 06-08-2024 ESR Photometric method (Bld) [Velocity] Erythrocyte sedimentation rate by Photometric method 0-29 [facility] Fibrin D-dimer [Presence] in Platelet poor plasma by Latex agglutinationOrdered By: Trinity Monet on 06-08-2024 Fibrin D-dimer LA Ql (PPP) Fibrin D-dimer [Presence] in Platelet poor plasma by Latex agglutination 0-243 [facility] Comment on above: The reference range for D-dimer is <243 ng/mL D-dimer units.D-dimer results must be used in conjunction with a clinicalpretest probability (PTP) assessment model for deep veinthrombosis (DVT) and pulmonary embolism (PE). Results <230ng/mL d-dimer units can be used as a negative predictor inpatients with low or moderate probability for DVT/PE.Results above the exclusion threshold of 230 ng/ml D-dimerunits for DVT/PE may indicate the need for furtherdiagnostic testing.D-Dimer can be increased in hospitalized patients due toco-morbid conditions.A hematocrit value greater than 55% may lead to inaccurate results in coagulation testing. Patients having hematocrit values >55% require a special collection tube for coagulation studies. Please contact the laboratory at [phone] for redraw instructions. Natriuretic peptide B [Mass/ Vol]Ordered By: Trinity Monet on 06-08-2024 Natriuretic peptide B (Bld) [Mass/Vol] BNP ser/plas 5-100 [facility] CNOVon 06-01-2024 CNOV Office Visit (OTOLMM ) -------- BERLINLASHELLHANK ([id number]) 1970 F Date Time Provider Department 06/01/24 9:45 AM JOAQUIM MANN OTOLMM During your visit today, we recorded the following information about you: Joaquim Mann MD 06/01/2024 10:08 AM Signed HPI Hank Freitas Noe is a 54 year old female who presents with current strep throat. Patient has had 6 episodes of strep throat where she is symptomatic with left ear pain and sore throat. Presently the patient is relatively asymptomatic so for some mild left ear pain. ROS General Weight loss: No Fatigue: No Night sweats:No Cardiac Chest pain:No Fast heart rate:No Swelling in the feet:No Respiratory Short of breath:No Cough:No Wheezing:No Gastrointestinal Nausea:No Vomiting:No Indigestion:No Past medical history, family history, and social history reviewed. PE There were no vitals taken for this visit. General: Patient is awake, alert, NAD. Voice is normal. Skin: normal Eyes: Extraocular motion and Gaze is normal. Ears: Right external auditory canal is normal. TMJ: normal. Right tympanic membranes normal. Left external auditory canal is normal. Left tympanic membrane normal. Nose: Septum is normal. Turbinates are normal. Nasopharynx:normal Oral Cavity/Oropharynx: Lips normal Dentition normal Tongue normal. Tonsils normal. Palate and uvula normal. Pharynx posterior normal Hypopharynx: Base of tongue normal Pyriform sinus normal. Larynx: Vocal cords normal. Epiglottis normal. Post cricoid normal. Salivary glands: Parotid normal. Submandibular and sublingual normal. Thyroid: normal. Lymphatic/Neck: Lymph nodes normal. Neurologic: Facial nerve normal. Ultrasound reviewed ASSESSMENT/PLAN: 1. Sore throat - ICD9: 462, ICD10: J02.9 (primary diagnosis) - GROUP A STREPTOCOCCUS BY PCR 2. Thyroid nodule - ICD9: 241.0, ICD10: E04.1 3. Acute recurrent streptococcal tonsillitis - ICD9: 034.0, ICD10: J03.01 I recommend a culture today since she is relatively asymptomatic and her exam is normal to rule out a strep carrier state I have not recommend any further treatment or testing for the thyroid nodule Joaquim Mann MD Findings will be communicated to the referring physician via mail or electronic medical record. Allergies As of Date: 06/01/2024 Noted Allergy Reaction IODINE 04/18/2017 4 - Hives 10 - Anaphylaxis 12 - Shortness of Breath Comments: Other reaction(s): anaphylaxis Other reaction(s): Unknown ATORVASTATIN 05/25/2021 14 - Other: See Comments Comments: Other Reaction(s): arthralgia/myalgia BUPROPION 05/10/2023 14 - Other: See Comments Comments: Other Reaction(s): Other: See Comments IODINATED CONTRAST MEDIA 11/29/2018 4 - Hives 14 - Other: See Comments 12 - Shortness of Breath Comments: Other reaction(s): Difficulty Breathing Other Reaction(s): Difficulty Breathing, Other: See Comments Other reaction(s): Difficulty Breathing MIRTAZAPINE 05/25/2021 4 - Hives 14 - Other: See Comments NALBUPHINE 04/18/2017 12 - Shortness of Breath 14 - Other: See Comments 17 - Myalgia Comments: Other Reaction(s): muscle spams, and breathing, Unknown NUBAIN (NALBUPHINE HCL) 04/18/2017 16 - Unknown Date Reviewed: 06/01/2024 Reviewed by: Noemy Francisco Ma - Fully Assessed Reason for Visit: recurring strep [Other] Cmt: And recurring swollen glands. Is on ATB now for more than 10 days10 days. Started with Augmentin, switched to Ceftin. Primary Visit Diagnosis:Sore throat [J02.9] Other Visit Diagnoses:Thyroid nodule [E04.1] Acute recurrent streptococcal tonsillitis [J03.01] Order(s):GROUP A STREPTOCOCCUS BY PCR [SQGASPCR] Order #: [id number] FUTURE GROUP A STREPTOCOCCUS BY PCR [SQGASPCR] Order #: [id number]. #:[id number] Prescriptions as of 06/01/2024 - esomeprazole (NEXIUM) 40 mg capsule Take 40 mg by mouth daily at bedtime. - cefUROXime (CEFTIN) 500 mg tablet Take 500 mg by mouth two times a day. - sucralfate (CARAFATE) 1 gram tablet Take 1 tablet by mouth three times a day. - pantoprazole DR (PROTONIX) 40 mg tablet Take 1 tablet by mouth once daily. - hyoscyamine SR (LEVBID) 0.375 mg 12 hr tablet Take 1 tablet by mouth two times a day. - senna-docusate (SENOKOT-S) 8.6-50 mg per tablet Take 2 tablets by mouth daily at bedtime. - rosuvastatin (CRESTOR) 40 mg tablet Take 40 mg by mouth daily at bedtime. - traZODone (DESYREL) 100 mg tablet Take 100 mg by mouth daily at bedtime. - rOPINIRole (REQUIP) 0.25 mg tablet Take 0.5 mg by mouth once daily as needed. 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 Normal [facility] GROUP A STREPTOCOCCUS BY PCR on 06-01-2024 S. pyogenes DNA ADONAY+probe Ql (Throat) Not detected Not detected [facility] No Panel Informationon 06-01 [facility] S PYO DNA THROAT QL ADONAY+PROB Hu 06-01-2024 [facility] S PYO DNA THROAT QL ADONAY+PROBE Not detected Not detected [facility] Specimen Type: SWAB Ordering Facility: [facility] Address: [address] [place] [address] Original Ordering Provider: [facility] S pyo DNA Throat Ql ADONAY+prob hu 06-01-2024 S. pyogenes DNA ADONAY+probe Ql (Throat) Not detected Normal Not detected [facility] Comment on above: Order Comment: Speci men Type: SWABOrdering Facility: [facility] Address: [address] [place] [address] Performed By: #### 6 [id number] ####[facility] LABORATORYCLIA [id number] [address] S. pyogenes DNA ADONAY+probe Ql (Throat)on 06-01-2024 Interpretation and review of laboratory results Normal [facility] CNOVon 05-29-2024 CNOV Office Visit ([facility]) -------- HANK LIU ([id number]) 1970 F Date Time Provider Department 05/29[facility]24 8[facility] During your visit today, we recorded the following information about you: Akhil Benitez RN 05/29/2024 10:05 AM Signed 05/29/2024 10:05 AM IV Access: IV IV Site: left Antecubital IV GAUGE 24 gauge IV Removal Date 05/29/2024 Time 10:05 AM Reactions: WNL Order reviewed by nurse:yes Medications: Definity - dosage 1cc Reaction: No Akhil Benitez RN Referring Provider: LINDA VALERO [[id number]] Allergies As of Date: 05/29/2024 Noted Allergy Reaction IODINE 04/18/2017 4 - Hives 10 - Anaphylaxis 12 - Shortness of Breath Comments: Other reaction(s): anaphylaxis Other reaction(s): Unknown ATORVASTATIN 05/25/2021 14 - Other: See Comments Comments: Other Reaction(s): arthralgia/myalgia BUPROPION 05/10/2023 14 - Other: See Comments Comments: Other Reaction(s): Other: See Comments IODINATED CONTRAST MEDIA 11/29/2018 4 - Hives 14 - Other: See Comments 12 - Shortness of Breath Comments: Other reaction(s): Difficulty Breathing Other Reaction(s): Difficulty Breathing, Other: See Comments Other reaction(s): Difficulty Breathing MIRTAZAPINE 05/25/2021 4 - Hives 14 - Other: See Comments NALBUPHINE 04/18/2017 12 - Shortness of Breath 14 - Other: See Comments 17 - Myalgia Comments: Other Reaction(s): muscle spams, and breathing, Unknown NUBAIN (NALBUPHINE HCL) 04/18/2017 16 - Unknown Date Reviewed: 05/15/2024 Reviewed by: Lesa Rabago LPN - Fully Assessed Visit Diagnosis:Abdominal swelling [R19.00] Order(s):ECHO [[id number]] Order #: [id number]: 1 [] perflutren lipid microspheres 1.3 mL in NaCl (PF) 0.9% 10 mL injection (DEFINITY)Disp: Rfl: Prescriptions as of 05/29/2024 - esomeprazole (NEXIUM) 40 mg capsule Take 40 mg by mouth daily at bedtime. - cefUROXime (CEFTIN) 500 mg tablet Take 500 mg by mouth two times a day. - sucralfate (CARAFATE) 1 gram tablet Take 1 tablet by mouth three times a day. - pantoprazole DR (PROTONIX) 40 mg tablet Take 1 tablet by mouth once daily. - hyoscyamine SR (LEVBID) 0.375 mg 12 hr tablet Take 1 tablet by mouth two times a day. - senna-docusate (SENOKOT-S) 8.6-50 mg per tablet Take 2 tablets by mouth daily at bedtime. - rosuvastatin (CRESTOR) 40 mg tablet Take 40 mg by mouth daily at bedtime. - traZODone (DESYREL) 100 mg tablet Take 100 mg by mouth daily at bedtime. - rOPINIRole (REQUIP) 0.25 mg tablet Take 0.5 mg by mouth once daily as needed. 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 There is mild concentric left ventricular hypertrophy. Left ventricular systolic function is normal. EF = 63 5% (2D biplane) Definity contrast used for endocardial border detection. - The right ventricle is normal in size. Right ventricular systolic function is normal. - No significant valvular abnormalities. - The patient has not had a prior echocardiographic exam for comparison. * * * Final * * * [facility] Echocardiography Report: Transthoracic Echo [place] [facility] Date of service: 05/29/2024 8:58:22 AM DC FIELD YOKE Ordering physician: LINDA VALERO Indication: abdominal swelling Technologist: Sol Botello [facility] Interpreting physician: Adrián Markham DO PATIENT: Name: MS. HANK LIU : 1970 Age: 54 years Gender: F Primary rhythm: sinus. Height: 154.90 cm BSA: 1.97 m Weight: 90.50 kg BMI: 37.7 kg/m Heart rate 59 bpm Blood pressure 184/93 mmHg Color Doppler was utilized to interrogate the cardiac valves assessed and spectral Doppler was utilized to determine the flow velocities and pressure gradients reported in this exam. MEASUREMENTS: Value Indexed Normal Max aortic dimension 3.1 cm Ao < 3.8 Left atrial volume 28 ml (Acosta's) 15 ml/m Rere <= 34 LV ID (diastole) 4.0 cm (2D) 2.05 cm/m LV ID (systole) 2.9 cm (2D) 1.46 cm/m IVS, leaflet tips 1.2 cm (2D) Posterior wall thickness 1.3 cm (2D) Left ventricular mass 177 g (2D) 90 g/m LV stroke volume 52 ml (2D biplane) LV end diastolic volume 82 ml (2D biplane) 41.8 ml/m 29<=EDVi<62 LV end systolic volume 30 ml (2D biplane) 15.4 ml/m Ejection Fraction 63 % (2D biplane) EF > 54 FINDINGS: LEFT VENTRICLE The left ventricle is normal in size. There is mild concentric left ventricular hypertrophy. Left ventricular systolic function is normal. Grade I left ventricular diastolic dysfunction. Mitral annular lateral E/e': 8.1. Mitral annular septal E/e': 18.5. Definity contrast used for endocardial border detection. Wall Motion: All scored segments are normal. RIGHT VENTRICLE The right ventricle is normal in size. Right ventricular systolic function is normal. RV systolic tissue Doppler velocity is 12.5 cm/s. Tricuspid annular displacement is 2.0 cm. Estimated right ventricular systolic pressure is 25 mmHg consistent with normal pulmonary artery pressures. Estimated right atrial pressure is 3 mmHg based on IVC assessment. LEFT ATRIUM The left atrial cavity is normal in size. Pulmonary Veins: The pulmonary venous pattern showed normal systolic flow. RIGHT ATRIUM The right atrial cavity is normal in size. Inferior Vena Cava: The inferior vena cava appears normal measuring 1.9 cm. The vessel decreases greater than 50 percent with inspiration. MITRAL VALVE There is trace mitral valve regurgitation. There is no thickening. The pressure half time is 50 msec. The peak mitral E/A ratio is 0.71. The mitral flow deceleration time is 174 msec. TRICUSPID VALVE There is trace tricuspid valve regurgitation. There is no thickening. The hepatic venous pattern showed normal systolic flow. AORTIC VALVE There is no aortic valve regurgitation. Tricuspid aortic valve. There is mild thickening. The peak gradient is 6 mmHg (peak velocity = 119.0 cm/s). The LVOT mean velocity is 54.0 cm/s. PULMONIC VALVE There is no pulmonic valve regurgitation. There is no thickening. AORTA The visualized aorta is normal in size. Measurements - Sinus: 3.0 cm. Sinotubular junction 2.7 cm. Mid ascending aorta 3.1 cm. Mid arch 2.6 cm. Distal descending diaphragmatic level 2.0 cm. INTERATRIAL SEPTUM There is no evidence of intracardiac shunting as detected by Doppler. INTERVENTRICULAR SEPTUM There is no flow through the interventricular septum as detected by Doppler. PERICARDIUM There is no pericardial effusion. There is an epicardial fat pad. [facility] Echocardiography Echocardiography Rep ort: Transthoracic Echo [facility] Date of service: 05/29/2024 8:58:22 AM DC FIELD YOKE Ordering physician: LINDA VALERO Indication: abdominal swelling Technologist: Sol VIEYRA Interpreting physician: Adrián Markham DO PATIENT: Name: MS. HANK LIU : 1970 Age: 54 years Gender: F Primary rhythm: sinus. Height: 154.90 cm BSA: 1.97 m Weight: 90.50 kg BMI: 37.7 kg/m Heart rate 59 bpm Blood pressure 184/93 mmHg Color Doppler was utilized to interrogate the cardiac valves assessed and spectral Doppler was utilized to determine the flow velocities and pressure gradients reported in this exam. MEASUREMENTS: Value Indexed Normal Max aortic dimension 3.1 cm Ao < 3.8 Left atrial volume 28 ml (Acosta's) 15 ml/m Rere <= 34 LV ID (diastole) 4.0 cm (2D) 2.05 cm/m LV ID (systole) 2.9 cm (2D) 1.46 cm/m IVS, leaflet tips 1.2 cm (2D) Posterior wall thickness 1.3 cm (2D) Left ventricular mass 177 g (2D) 90 g/m LV stroke volume 52 ml (2D biplane) LV end diastolic volume 82 ml (2D biplane) 41.8 ml/m 29<=EDVi<62 LV end systolic volume 30 ml (2D biplane) 15.4 ml/m Ejection Fraction 63 % (2D biplane) EF > 54 FINDINGS: LEFT VENTRICLE The left ventricle is normal in size. There is mild concentric left ventricular hypertrophy. Left ventricular systolic function is normal. Grade I left ventricular diastolic dysfunction. Mitral annular lateral E/e': 8.1. Mitral annular septal E/e': 18.5. Definity contrast used for endocardial border detection. Wall Motion: All scored segments are normal. RIGHT VENTRICLE The right ventricle is normal in size. Right ventricular systolic function is normal. RV systolic tissue Doppler velocity is 12.5 cm/s. Tricuspid annular displacement is 2.0 cm. Estimated right ventricular systolic pressure is 25 mmHg consistent with normal pulmonary artery pressures. Estimated right atrial pressure is 3 mmHg based on IVC assessment. LEFT ATRIUM The left atrial cavity is normal in size. Pulmonary Veins: The pulmonary venous pattern showed normal systolic flow. RIGHT ATRIUM The right atrial cavity is normal in size. Inferior Vena Cava: The inferior vena cava appears normal measuring 1.9 cm. The vessel decreases greater than 50 percent with inspiration. MITRAL VALVE There is trace mitral valve regurgitation. There is no thickening. The pressure half time is 50 msec. The peak mitral E/A ratio is 0.71. The mitral flow deceleration time is 174 msec. TRICUSPID VALVE There is trace tricuspid valve regurgitation. There is no thickening. The hepatic venous pattern showed normal systolic flow. AORTIC VALVE There is no aortic valve regurgitation. Tricuspid aortic valve. There is mild thickening. The peak gradient is 6 mmHg (peak velocity = 119.0 cm/s). The LVOT mean velocity is 54.0 cm/s. PULMONIC VALVE There is no pulmonic valve regurgitation. There is no thickening. AORTA The visualized aorta is normal in size. Measurements - Sinus: 3.0 cm. Sinotubular junction 2.7 cm. Mid ascending aorta 3.1 cm. Mid arch 2.6 cm. Distal descending diaphragmatic level 2.0 cm. INTERATRIAL SEPTUM There is no evidence of intracardiac shunting as detected by Doppler. INTERVENTRICULAR SEPTUM There is no flow through the interventricular septum as detected by Doppler. PERICARDIUM There is no pericardial effusion. There is an epicardial fat pad. CONCLUSIONS: - Exam indication: abdominal swelling - The left ventricle is normal in size. There is mild concentric left ventricular hypertrophy. Left ventricular systolic function is normal. EF = 63 5% (2D biplane) Definity contrast used for endocardial border detection. - The right ventricle is normal in size. Right ventricular systolic function is normal. - No significant valvular abnormalities. - The patient has not had a prior CC echocardiographic exam for comparison. * * * Final * * * CC [employer] Medical Image : [id number] Normal [facility] Aerobic throat cultureOrdere d By: Pat Barnett on 05-23-2024 Bacteria identified Aer cx Nom (Throat) Aerobic throat culture [facility] Bacteria identified Aer cx Nom (Throat) Aerobic throat culture [facility] Influenza virus B Ag [Presen ce] in Upper respiratory specimen by Rapid immunoassayon 05-23-2024 FLUBV Ag IA.rapid Ql (Nph) Influenza virus B Ag [Presence] in Upper respiratory specimen by Rapid immunoassay [facility] No Panel InformationOrdered By: Pat Barnett on 05-23-2024 Mononucleosis (POC) [facility] Mononucleosis (POC) [facility] No Panel Informationon 05-23 Influenza Type A (Rapid) Negative [facility] POC SARS CoV-2 Antigen Negative [facility] Throat Cultureon 05-23-2024 Throat culture Heavy Normal Respira tory Beck 2 Days PERFORMED BY: [facility] [address] [place] [address] PATHOLOGIST POWER STATION OPERATOR SHANIKA PERRY M.D. Normal [facility] Comment on above: Performed By: #### B UN, WALDO, CHRIS, PTH, CA, URIC #### [facility] [address] No Panel InformationOrdered By: Pat Barnett on 05-19-2024 Quick Strep (POC) [facility] CNTHERAPYon 05-18-2024 CNTHERAPY OT/PT/Speech Visit (PTAF) -------- HANK LIU ([id number]) 1970 F Date Time Provider Department 05/18/24 2:15 PM HEATHER JOLLY [facility] Date Time Provider Department Center 05/18/2024 2:15 PM [id number] [facility] Reason for Visit: Physical Therapy [503] Primary Visit Diagnosis:Pelvic floor tension [M62.89] Allergies As of Date: 05/18/2024 Noted Allergy Reaction IODINE 04/18/2017 4 - Hives 10 - Anaphylaxis 12 - Shortness of Breath Comments: Other reaction(s): anaphylaxis Other reaction(s): Unknown ATORVASTATIN 05/25/2021 14 - Other: See Comments Comments: Other Reaction(s): arthralgia/myalgia BUPROPION 05/10/2023 14 - Other: See Comments Comments: Other Reaction(s): Other: See Comments IODINATED CONTRAST MEDIA 11/29/2018 4 - Hives 14 - Other: See Comments 12 - Shortness of Breath Comments: Other reaction(s): Difficulty Breathing Other Reaction(s): Difficulty Breathing, Other: See Comments Other reaction(s): Difficulty Breathing MIRTAZAPINE 05/25/2021 4 - Hives 14 - Other: See Comments NALBUPHINE 04/18/2017 12 - Shortness of Breath 14 - Other: See Comments 17 - Myalgia Comments: Other Reaction(s): muscle spams, and breathing, Unknown NUBAIN (NALBUPHINE HCL) 04/18/2017 16 - Unknown Date Reviewed: 05/15/2024 Reviewed by: Lesa Rabago LPN - Fully Assessed Prescriptions as of 05/18/2024 - esomeprazole (NEXIUM) 40 mg capsule Take 40 mg by mouth daily at bedtime. - cefUROXime (CEFTIN) 500 mg tablet Take 500 mg by mouth two times a day. - sucralfate (CARAFATE) 1 gram tablet Take 1 tablet by mouth three times a day. - pantoprazole DR (PROTONIX) 40 mg tablet Take 1 tablet by mouth once daily. - hyoscyamine SR (LEVBID) 0.375 mg 12 hr tablet Take 1 tablet by mouth two times a day. - senna-docusate (SENOKOT-S) 8.6-50 mg per tablet Take 2 tablets by mouth daily at bedtime. - rosuvastatin (CRESTOR) 40 mg tablet Take 40 mg by mouth daily at bedtime. - traZODone (DESYREL) 100 mg tablet Take 100 mg by mouth daily at bedtime. - rOPINIRole (REQUIP) 0.25 mg tablet Take 0.5 mg by mouth once daily as needed. Binder Layer: Addendum Therapy (PT/OT/Speech/Resp) ID: [id number] 05/18/2024 3:32 PM Author: HEATHER JOLLY Signed by HEATHER JOLLY PT on 05/18/2024 at 3:32 PM * * * This document replaces document [id number] * * * Document text: Program_ID:[id number] Access Code: [email or web address] URL: [email or web address] Date: 05-18-2024 Prepared By: Heather Jolly Program Notes Exercises - Abdominal Massage - 2-3 x daily - 7 x weekly - 1 sets - 10 reps - SMFR ball to hips and spine - 1 x daily - 7 x weekly - 1 sets - reps - Crocodile breathing - 1 x daily - 7 x weekly - 1 sets - 1 reps - Prone abdominal massage with pilates ball - 1 x daily - 3 x weekly - 1 sets - 1 reps - Inverted breathing with and without blocks under knees - 1 x daily - 7 x weekly - 1 sets - 8 reps - hip crossbody stretch - 1 x daily - 5 x weekly - 1 sets - 3 reps - External Pelvic Floor Awareness - 1 x daily - 7 x weekly - 1 sets - 10 reps - Seated prayer stretch for back body expansion - 1 x daily - 7 x weekly - 1 sets - 10 reps - Seated Trunk Rotation - 1 x daily - 5 x weekly - 1 sets - 10 reps - Seated Punches with Trunk Rotation - 1 x daily - 5 x weekly - 1 sets - 10 reps Normal [facility] THERAPY NTon 05-18-2024 THERAPY NT HNO ID: [id number] Author: HEATHER JOLLY, ANJUM Service: ? Author Type: Physical Therapist Type: Therapy (PT/OT/Speech/Resp) Filed: 05/18/2024 15:32 Note Text: Program_ID:[id number] Access Code: [email or web address] URL: [email or web address] Date: 05-18-2024 Prepared By: Heather Jolly Program Notes Exercises - Abdominal Massage - 2-3 x daily - 7 x weekly - 1 sets - 10 reps - SMFR ball to hips and spine - 1 x daily - 7 x weekly - 1 sets - reps - Crocodile breathing - 1 x daily - 7 x weekly - 1 sets - 1 reps - Prone abdominal massage with pilates ball - 1 x daily - 3 x weekly - 1 sets - 1 reps - Inverted breathing with and without blocks under knees - 1 x daily - 7 x weekly - 1 sets - 8 reps - hip crossbody stretch - 1 x daily - 5 x weekly - 1 sets - 3 reps - External Pelvic Floor Awareness - 1 x daily - 7 x weekly - 1 sets - 10 reps - Seated prayer stretch for back body expansion - 1 x daily - 7 x weekly - 1 sets - 10 reps - Seated Trunk Rotation - 1 x daily - 5 x weekly - 1 sets - 10 reps - Seated Punches with Trunk Rotation - 1 x daily - 5 x weekly - 1 sets - 10 reps Normal [facility] IMMUNODEFICIENCY PNL BLD FCon 2024 [facility] CD3 CELLS # BLD 2026 [facility] CD3 CELLS NFR BLD 82 % 60 - 89 % [facility] CCF CD3+CD4+ CELLS # BLD 1391 [facility] CD3+CD4+ CELLS NFR BLD 56 % 34 - 61 % [facility] CD3+CD4+ CELLS/CD3+CD8+ CELLS BLD 2.61 1.10 - 3.25 [facility] CD3+CD8+ CELLS # BLD 533 [facility] CD3+CD8+ CELLS NFR BLD 22 % 10 - 41 % [facility] CD3-CD16+CD56+ CELLS # BLD 183 [facility] CD3-CD16+CD56+ CELLS NFR BLD 7 % 5 - 25 % [facility] CD3-CD19+ CELLS # BLD 258 [facility] CD3-CD19+ CELLS NFR BLD 10 % 5 - 22 % [facility] Specimen Type: BLOOD SPECIMEN Ordering Facility: [facility] Address: [address] [place] [address] Original Ordering Provider: ANGEL ULLOA [facility] ALTERNATIVE COMPLEMENT PATHW AY ACTIVITY (AH50)on 05-15-2024 COMPLEMENT, ALTERNATE PATHWAY 91 % Normal Normal >=31 [facility] Comment on above: Order Comment: Speci men Type: BLOOD SPECIMEN Ordering Facility: [facility] Address: [address] [place] [address] Result Comment: Normal activity in complement alternative pathway functional (AH50) activity suggests normal presence and function of complement components C3-C9. However, normal AH50 result can also occur in the presence of low levels of complement components due to excess presence of complement proteins in human serum. If clinically indicated, measurement of individual complement components is recommended. Normal AH50 result with low total complement functional (CH50, test code [id number]) activity suggests defects in the classical complement pathway. Interpretive Information: Alternative Complement Pathway Activity This test was developed and its performance characteristics determined by [facility]. It has not been cleared or approved by the U.S. Food and Drug Administration. This test was performed in a CLIA-certified laboratory and is intended for clinical purposes. Performed By: [facility] [employer] [address] [place] [address] Roofing Technician: Jarocho Stewart MD, PhD CLIA Number: [id number] Performed By: #### D IPTET, C1EST #### [facility] CLIA [id number] [address] [place] [address] C1 ESTERASE INHIB FUon 05-15 C1 ESTERASE INHIBITOR FUNCTION 98 % Normal >=41 [facility] Comment on above: Order Comment: Speci men Type: BLOOD SPECIMENOrdering Facility: [facility] Address: [address] [place] [address] Result Comment: The concentration of functional C1 esterase inhibitor (C1-INH) is reported as the percentage of the mean level in normal specimens. Concentrations greater than or equal to 68 percent mean normal are considered normal. INTERPRETIVE INFORMATION: X-3-Wxoemuvf Inhib. Functional 68% or greater ........ Normal 41% - 67% ............. Indeterminate 40% or less ........... Abnormal Performed By: [facility] [address] [place] [address] Roofing Technician: Jarocho Stewart MD, PhD CLIA Number: [id number] Performed By: #### C 1EFUN ####[facility] [id number] [place] [id number] C1 ESTERASE INHIBITon 2024 C1 ESTERASE INHIBIT 32 mg/dL Normal 21-38 [facility] Comment on above: Order Comment: Speci men Type: BLOOD SPECIMEN Ordering Facility: [facility] Address: [address] [place] [address] Result Comment: Perf ormed By: [facility] [employer] [address] [place] [address] Roofing Technician: Jarocho Stewart MD, PhD CLIA Number: [id number] Performed By: #### D IPTET, C1EST #### [facility] CLIA [id number] [address] [place] [address] C1Q COMPLEMENT PROTon 2024 C1Q COMPLEMENT PROTEIN 119 ug/mL Normal 109-242 [facility] Comment on above: Order Comment: Speci men Type: BLOOD SPECIMEN Ordering Facility: [facility] Address: [address] [place] [address] Result Comment: Perf ormed By: [facility] [employer] [address] [place] [address] Roofing Technician: Jarocho Stewart MD, PhD CLIA Number: [id number] Performed By: #### D IPTET, C1EST #### [facility] CLIA [id number] [address] [place] [address] C4 SerPl-mCncon 05-15-2024 Complement C4 [Mass/Vol] 32 mg/dL Normal 13-46 [facility] Comment on above: Order Comment: Speci men Type: BLOOD SPECIMEN Ordering Facility: [facility] Address: [address] [place] [address] Performed By: #### D IPTET, C1EST #### [facility] CLIA [id number] [address] [place] [address] CNOVon 05-15-2024 CNOV Office Visit (BRITTAF ) -------- HANK LIU ([id number]) 1970 F Date Time Provider Department 05/15/24 2:00 PM ANGEL CISSE During your visit today, we recorded the following information about you: Temperature Pulse Blood pressure 97.7 degrees 82/minute 123/71 Angel Cisse MD 05/15/2024 9:52 PM Signed Allergy and Immunology Patient Name: Hank Fortino Liu PRIMARY CARE PHYSICIAN: Trey Brown DO REASON FOR CONSULT: recurrent infections REQUESTING PHYSICIAN: Linda Valero MD My final recommendations will be communicated to the requesting health care provider by way of the shared medical record for internal providers or letter via the [employer] for external providers. 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 Recurrent infections Patient reports that for the past 4-5 years, she has been constantly ill She feels like she is always sick and needing antibiotics She had strep throat about 5-6 times this year Was usually treated at urgent care with Augmentin Reports that she is clear between the infections and then getting a new infection each time (reports positive throat swab tests) Her symptoms include throat pain and swelling, ear pain and then cough She also reports having 1-2 CXR-proven pneumonia's each year She had two pneumonias this year needing oral antibiotics Has not needed any admissions or IV antibiotics Has not been seen by Immunology Was seen by Rheumatology, and her autoimmune workup was non-revealing She does report episodes of intermittent abdominal swelling She reports severe swelling and pain, that occur without any identifiable trigger She was told that Immunology might be able to help She denies any episodes of lip or throat angioedema, and no history of hives No family history of angioedema Has brother who has cancer and Ankylosing spondylitis He also gets sick all the time Mom young Dad is 88 years old, no history of recurrent infections or autoimmune disease Patient is currently not taking any immunosuppressive medications She has not taken any chemotherapy in the past for her carcinoid and bone tumors Allergic/Infectious Personal History: Nasal polyps: The patient has never had nasal polyps. Asthma: The patient has no history of asthma. Sinusitis: The patient does not suffer from frequent sinopulmonary infections. Contact Dermatitis/Eczema: DENIES Food Allergies/Reactions: DENIES Urticaria/Angioedema: DENIES Hymenoptera Reaction: denies Environmental history: Type of home: House Basement: Yes Air conditioning: Central air Mold/moisture problem: No Wood-burning stove: No Bedroom cally: Wood Use of dust mite covers: No Use of down/feather pillows/comforters: No Presence of stuffed animals in the bedroom: No Pets in the home: cats, dogs Smoking history: Occupation: PAST MEDICAL AND SURGICAL HISTORY: PAST MEDICAL HISTORY Diagnosis Date Arthritis Carcinoid tumor of stomach Gall stones GERD (gastroesophageal reflux disease) Hemorrhoids Hyperlipidemia Stomach ulcer UTI (urinary tract infection) PAST SURGICAL HISTORY Procedure Laterality Date ANESTH, SECTION CHOLECYSTECTOMY COLONOSCOPY 03/22/2016 EGD HYSTERECTOMY HX told she still has cervix, was for bleeding LAP REMOVE/REV MESH BLADDER WALL PAST SURGICAL HISTORY OF 04/2019 breast reconstruction SLEEVE RESECTION STOMACH ALLERGIES: is allergic to iodine, atorvastatin, bupropion, iodinated contrast media, mirtazapine, nalbuphine, and nubain [nalbuphine hcl]. FAMILY HISTORY: FAMILY HISTORY Problem Relation Age of Onset Diabetes Mother Colon Cancer Mother 55 detected on autopsy Aneurysm Mother 55 aortic Heart disease Father Hyperlipidemia Father Stroke Father Cancer Brother 48 kidney Cancer Brother spinal cord REVIEW OF SYSTEMS: All systems were reviewed and were negative except as listed in the HPI and above. Answers submitted by the patient for this visit: Allergy Review of Symptoms (Submitted on 05/10/2024) Sore throat: Yes Abdominal pain: Yes Nausea: Yes Diarrhea: Yes Constipation: Yes PHYSICAL EXAM: BP 123/71 Pulse 82 Temp 36.5 ?C (97.7 ?F) SpO2 99% There is no height or weight on file to calculate BMI. General: The patient is pleasant, well groomed, in no acute distress, breathing comfortably and interactive with the exam. Head: Normocephalic, atraumatic Eyes: Conjunctiva not injected, no drainage. Neck: Supple, normal ROM Lymph: No cervical or supraclavicular LAD. Musculoskeletal: Normal muscle tone and gait. Neurologic: Grossly non-focal Psych: Appropriate affect. Dermatologic: No rash, urticaria or ex (more content not included)... Normal [facility] DIPHTHER/TETANUS ABon 2024 DIPHTHERIA AB 0.4 IU/mL Normal [facility] Comment on above: Order Comment: Speci men Type: BLOOD SPECIMEN Ordering Facility: [facility] Address: [facility] [place] [address] Result Comment: INTE RPRETIVE INFORMATION: Diphtheria Ab, IgG Antibody concentration of greater than 0.1 IU/mL is usually considered protective. Responder status is determined according to the ratio of a one month post-vaccination sample to pre-vaccination concentrations of Diphtheria IgG Abs as follows: 1. If the one month post-vaccination concentration is less than 1.0 IU/mL, the patient is considered to be a non-responder. 2. If the post-vaccination concentration is greater than or equal to 1.0 IU/mL, a patient with a ratio of less than 1.5 is a non-responder, a ratio of 1.5 to less than 3.0, a weak responder, and a ratio of 3.0 or greater, a good responder. 3. If the pre-vaccination concentration is greater than 1.0 IU/mL, it may be difficult to assess the response based on a ratio alone. A post-vaccination concentration above 2.5 IU/mL in this case is usually adequate. This test was developed and its performance characteristics determined by [facility]. It has not been cleared or approved by the [place] Food and Drug Administration. This test was performed in a CLIA certified laboratory and is intended for clinical purposes. Performed By: #### D IPTET, C1EST #### [facility] [employer] CLIA [id number] [address] [place] [address] TETANUS AB 2.7 IU/mL Normal [facility] Comment on above: Order Comment: Speci men Type: BLOOD SPECIMEN Ordering Facility: [facility] Address: [address] [place] [address] [place] [id number] Result Comment: INTE RPRETIVE INFORMATION: Tetanus Ab, IgG Antibody concentration of greater than 0.1 IU/mL is usually considered protective. Responder status is determined according to the ratio of a one-month post-vaccination sample to pre-vaccination concentration of Tetanus IgG Abs as follows: 1. If the one month post-vaccination concentration is less than 1.0 IU/mL, the patient is considered a non-responder. 2. If the post-vaccination concentration is greater than or equal to 1.0 IU/mL, a patient with a ratio of less than 1.5 is a non-responder, a ratio of 1.5 to less than 3.0, a weak responder, and a ratio of 3.0 or greater, a good responder. 3. If the pre-vaccination concentration is greater than 1.0 IU/mL, it may be difficult to assess the response based on a ratio alone. A post-vaccination concentration above 2.5 IU/mL in this case is usually adequate. This test was developed and its performance characteristics determined by [facility]. It has not been cleared or approved by the [place] Food and Drug Administration. This test was performed in a CLIA certified laboratory and is intended for clinical purposes. Performed By: [facility] [address] [place] [address] Roofing Technician: Jarocho Stewart MD, PhD CLIA Number: [id number] Performed By: #### D IPTET, C1EST #### [facility] CLIA [id number] [address] [place] [address] IGG SUBCLASS 1,2,3,4on 05-15 IgG subclass 1 (S) [Mass/Vol] 441.8 mg/dL Normal 382.4-928. 6 [facility] Comment on above: Order Comment: Speci men Type: BLOOD SPECIMEN Ordering Facility: [facility] Address: [address] [place] [address] Performed By: #### I G1234 #### [facility] CLIA [id number] [address] [place] [address] [place] IgG subclass 2 (S) [Mass/Vol] 295.5 mg/dL Normal 241.8-700. 3 [facility] Comment on above: Order Comment: Speci kelly Type: BLOOD SPECIMEN Ordering Facility: [facility] Address: [address] [place] [address] Performed By: #### I G1234 #### [facility] CLIA [id number] [address] [place] [address] [place] IgG subclass 3 (S) [Mass/Vol] 35.6 mg/dL Normal 21.8-176.1 [facility] Comment on above: Order Comment: Speci men Type: BLOOD SPECIMEN Ordering Facility: [facility] Address: [address] [place] [address] Performed By: #### I G1234 #### [facility] CLIA [id number] [address] [place] [address] [place] IgG subclass 4 (S) [Mass/Vol] 36.9 mg/dL Normal 3.9-86.4 [facility] Comment on above: Order Comment: Speci men Type: BLOOD SPECIMEN Ordering Facility: [facility] Address: [address] [place] [address] Performed By: #### I G1234 #### [facility] CLIA [id number] [address] [facility] [id number] [place] [address] [place] IMMUNOGLOBULINS,IGG,IGA,IGMo n 05-15-2024 IgA [Mass/Vol] 248 mg/dL Normal 70-400 [facility] Comment on above: Order Comment: Speci men Type: BLOOD SPECIMEN Ordering Facility: [facility] Address: [address] [place] [address] Performed By: #### D IPTET, C1EST #### [facility] CLIA [id number] [address] [place] [address] IgG [Mass/Vol] 916 mg/dL Normal 700-1600 [facility] Comment on above: Order Comment: Speci men Type: BLOOD SPECIMEN Ordering Facility: [facility] Address: [address] [place] [address] Performed By: #### D IPTET, C1EST #### [facility] CLIA [id number] [address] [place] [address] IgM [Mass/Vol] 50 mg/dL Normal 40-230 [facility] Comment on above: Order Comment: Speci men Type: BLOOD SPECIMEN Ordering Facility: [facility] Address: [address] [place] [address] Performed By: #### D IPTET, C1EST #### [facility] CLIA [id number] [address] [place] [address] IgE SerPl-aCncon 05-15-2024 IgE Qn 18.8 kU/l Normal <114.0 [facility] Comment on above: Order Comment: Speci men Type: BLOOD SPECIMEN Ordering Facility: [facility] Address: [address] [place] [address] Performed By: #### D IPTET, C1EST #### [facility] CLIA [id number] [address] [place] [address] Immunodeficiency panel FC (B ld)on 05-15-2024 CD3 cells (Bld) [#/Vol] 2026 cells/uL Normal 958-2388 [facility] Comment on above: Order Comment: Speci men Type: BLOOD SPECIMEN Ordering Facility: [facility] Address: [address] [place] [address] Performed By: #### D IPTET, C1EST #### [facility] CLIA [id number] [address] [place] [address] CD3 cells/100 cells (Bld) 82 % Normal 60-89 [facility] Comment on above: Order Comment: Speci men Type: BLOOD SPECIMEN Ordering Facility: [facility] Address: [address] [place] [address] Performed By: #### D IPTET, C1EST #### [facility] CLIA [id number] [address] [place] [address] CD3+CD4+ (T4 helper) cells (Bld) [#/Vol] 1391 cells/uL Normal 533-1674 [facility] Comment on above: Order Comment: Speci men Type: BLOOD SPECIMEN Ordering Facility: [facility] Address: [address] [place] [address] Performed By: #### D IPTET, C1EST #### [facility] CLIA [id number] [address] [place] [address] CD3+CD4+ (T4 helper) cells/100 cells (Bld) 56 % Normal 34-61 [facility] Comment on above: Order Comment: Speci men Type: BLOOD SPECIMEN Ordering Facility: [facility] Address: [address] [place] [address] Performed By: #### D IPTET, C1EST #### [facility] CLIA [id number] [address] [place] [address] CD3+CD4+ (T4 helper) cells/CD3+CD8+ (T8 suppressor cells) cells (Bld) [# ratio] 2.61 % Normal 1.10-3.25 [facility] Comment on above: Order Comment: Speci men Type: BLOOD SPECIMEN Ordering Facility: [facility] Address: [address] [place] [address] Performed By: #### D IPTET, C1EST #### [facility] CLIA [id number] [address] [place] [address] CD3+CD8+ (T8 suppressor cells) cells (Bld) [#/Vol] 533 cells/uL Normal 175-958 [facility] Comment on above: Order Comment: Speci men Type: BLOOD SPECIMEN Ordering Facility: [facility] Address: [address] [place] [address] Performed By: #### D IPTET, C1EST #### [facility] CLIA [id number] [address] [place] [address] CD3+CD8+ (T8 suppressor cells) cells/100 cells (Bld) 22 % Normal 10-41 [facility] Comment on above: Order Comment: Speci men Type: BLOOD SPECIMEN Ordering Facility: [facility] Address: [address] [place] [address] Performed By: #### D IPTET, C1EST #### [facility] CLIA [id number] [address] [place] [address] CD3-CD16+CD56+ (Natural killer) cells (Bld) [#/Vol] 183 cells/uL Normal 102-565 [facility] Comment on above: Order Comment: Speci men Type: BLOOD SPECIMEN Ordering Facility: [facility] Address: [address] [place] [address] Performed By: #### D IPTET, C1EST #### [facility] CLIA [id number] [address] [place] [address] CD3-CD16+CD56+ (Natural killer) cells/100 cells (Bld) 7 % Normal 5-25 [facility] Comment on above: Order Comment: Speci men Type: BLOOD SPECIMEN Ordering Facility: [facility] Address: [address] [place] [address] Performed By: #### D IPTET, C1EST #### [facility] CLIA [id number] [address] [place] [address] CD3-CD19+ cells (Bld) [#/Vol] 258 cells/uL Normal 75-660 [facility] Comment on above: Order Comment: Speci men Type: BLOOD SPECIMEN Ordering Facility: [facility] Address: [address] [place] [address] Performed By: #### D IPTET, C1EST #### [facility] CLIA [id number] [address] [place] [address] CD3-CD19+ cells/100 cells (Bld) 10 % Normal 5-22 [facility] Comment on above: Order Comment: Speci men Type: BLOOD SPECIMEN Ordering Facility: [facility] Address: [address] [place] [address] Performed By: #### D IPTET, C1EST #### [facility] CLIA [id number] [address] [place] [address] PNEUMOCOCCAL IGG ABS, 23 SER OTYPESon 05-15-2024 PNEUMO SEROTYPE 1 IGG (P13,PNX) 0.35 ug/mL Normal [facility] Comment on above: Order Comment: Speci men Type: BLOOD SPECIMEN Ordering Facility: [facility] Address: [address] [place] [address] Performed By: #### D IPTET, C1EST #### [facility] CLIA [id number] [address] [place] [address] PNEUMO SEROTYPE 10A IGG (PNX) 0.14 ug/mL Normal [facility] Comment on above: Order Comment: Speci men Type: BLOOD SPECIMEN Ordering Facility: [facility] Address: [address] [place] [address] Performed By: #### D IPTET, C1EST #### [facility] CLIA [id number] [address] [place] [address] PNEUMO SEROTYPE 11A IGG (PNX) 0.25 ug/mL Normal [facility] Comment on above: Order Comment: Speci men Type: BLOOD SPECIMEN Ordering Facility: [facility] Address: [address] [place] [address] Performed By: #### D IPTET, C1EST #### [facility] CLIA [id number] [address] [place] [address] PNEUMO SEROTYPE 12F IGG (PNX) <0.04 Normal [facility] Comment on above: Order Comment: Speci men Type: BLOOD SPECIMEN Ordering Facility: [facility] Address: [address] [place] [address] Performed By: #### D IPTET, C1EST #### [facility] CLIA [id number] [address] [place] [address] PNEUMO SEROTYPE 14 IGG (P7,P13,PNX) 0.60 ug/mL Normal [facility] Comment on above: Order Comment: Speci men Type: BLOOD SPECIMEN Ordering Facility: [facility] Address: [address] [place] [address] Performed By: #### D IPTET, C1EST #### [facility] CLIA [id number] [address] [place] [address] PNEUMO SEROTYPE 15B IGG (PNX) 0.21 ug/mL Normal [facility] Comment on above: Order Comment: Speci men Type: BLOOD SPECIMEN Ordering Facility: [facility] Address: [address] [place] [address] Performed By: #### D IPTET, C1EST #### [facility] CLIA [id number] [address] [place] [address] PNEUMO SEROTYPE 17F IGG (PNX) 0.04 ug/mL Normal [facility] Comment on above: Order Comment: Speci men Type: BLOOD SPECIMEN Ordering Facility: [facility] Address: [address] [place] [address] Performed By: #### D IPTET, C1EST #### [facility] CLIA [id number] [address] [place] [address] PNEUMO SEROTYPE 18C IGG (P7,P13,PNX) 0.21 ug/mL Normal [facility] Comment on above: Order Comment: Speci men Type: BLOOD SPECIMEN Ordering Facility: [facility] Address: [address] [place] [address] Performed By: #### D IPTET, C1EST #### [facility] CLIA [id number] [address] [place] [address] PNEUMO SEROTYPE 19A IGG (P13,PNX) 0.25 ug/mL Normal [facility] Comment on above: Order Comment: Speci men Type: BLOOD SPECIMEN Ordering Facility: [facility] Address: [address] [place] [address] Performed By: #### D IPTET, C1EST #### [facility] CLIA [id number] [address] [place] [address] PNEUMO SEROTYPE 19F IGG (P7,P13,PNX) 0.39 ug/mL Normal [facility] Comment on above: Order Comment: Speci men Type: BLOOD SPECIMEN Ordering Facility: [facility] Address: [address] [place] [address] Performed By: #### D IPTET, C1EST #### [facility] CLIA [id number] [address] [place] [address] PNEUMO SEROTYPE 2 IGG (PNX) 0.16 ug/mL Normal [facility] Comment on above: Order Comment: Speci men Type: BLOOD SPECIMEN Ordering Facility: [facility] Address: [address] [place] [address] Performed By: #### D IPTET, C1EST #### [facility] CLIA [id number] [address] [place] [address] PNEUMO SEROTYPE 20 IGG (PNX) 2.25 ug/mL Normal [facility] Comment on above: Order Comment: Speci men Type: BLOOD SPECIMEN Ordering Facility: [facility] Address: [address] [place] [address] Performed By: #### D IPTET, C1EST #### [facility] CLIA [id number] [address] [place] [address] PNEUMO SEROTYPE 22F IGG (PNX) 0.43 ug/mL Normal [facility] Comment on above: Order Comment: Speci men Type: BLOOD SPECIMEN Ordering Facility: [facility] Address: [address] [place] [address] Performed By: #### D IPTET, C1EST #### [facility] CLIA [id number] [address] [place] [address] PNEUMO SEROTYPE 23F IGG (P7,P13,PNX) 0.04 ug/mL Normal [facility] Comment on above: Order Comment: Speci men Type: BLOOD SPECIMEN Ordering Facility: [facility] Address: [address] [place] [address] Performed By: #### D IPTET, C1EST #### [facility] CLIA [id number] [address] [place] [address] PNEUMO SEROTYPE 3 IGG (P13,PNX) 0.17 ug/mL Normal [facility] Comment on above: Order Comment: Speci men Type: BLOOD SPECIMEN Ordering Facility: [facility] Address: [address] [place] [address] Performed By: #### D IPTET, C1EST #### [facility] CLIA [id number] [address] [place] [address] PNEUMO SEROTYPE 33F IGG (PNX) 0.47 ug/mL Normal [facility] Comment on above: Order Comment: Speci men Type: BLOOD SPECIMEN Ordering Facility: [facility] Address: [address] [place] [address] Performed By: #### D IPTET, C1EST #### [facility] CLIA [id number] [address] [place] [address] PNEUMO SEROTYPE 4 IGG (P7,P13,PNX) 0.25 ug/mL Normal [facility] Comment on above: Order Comment: Speci men Type: BLOOD SPECIMEN Ordering Facility: [facility] Address: [address] [place] [address] Performed By: #### D IPTET, C1EST #### [facility] CLIA [id number] [address] [place] [address] PNEUMO SEROTYPE 5 IGG (P13,PNX) 0.23 ug/mL Normal [facility] Comment on above: Order Comment: Speci men Type: BLOOD SPECIMEN Ordering Facility: [facility] Address: [address] [place] [address] Performed By: #### D IPTET, C1EST #### [facility] CLIA [id number] [address] [place] [address] PNEUMO SEROTYPE 6B IGG (P7,P13,PNX) 0.05 ug/mL Normal [facility] Comment on above: Order Comment: Speci men Type: BLOOD SPECIMEN Ordering Facility: [facility] Address: [address] [place] [address] Performed By: #### D IPTET, C1EST #### [facility] CLIA [id number] [address] [place] [address] PNEUMO SEROTYPE 7F IGG (P13,PNX) 0.32 ug/mL Normal [facility] Comment on above: Order Comment: Speci men Type: BLOOD SPECIMEN Ordering Facility: [facility] Address: [address] [place] [address] Performed By: #### D IPTET, C1EST #### [facility] CLIA [id number] [address] [place] [address] PNEUMO SEROTYPE 8 IGG (PNX) 0.03 ug/mL Normal [facility] Comment on above: Order Comment: Speci men Type: BLOOD SPECIMEN Ordering Facility: [facility] Address: [address] [place] [address] Performed By: #### D IPTET, C1EST #### [facility] CLIA [id number] [address] [place] [address] PNEUMO SEROTYPE 9N IGG (PNX) 0.09 ug/mL Normal [facility] Comment on above: Order Comment: Speci men Type: BLOOD SPECIMEN Ordering Facility: [facility] Address: [address] [place] [address] Performed By: #### D IPTET, C1EST #### [facility] CLIA [id number] [address] [place] [address] PNEUMO SEROTYPE 9V IGG (P7,P13,PNX) 0.08 ug/mL Normal [facility] Comment on above: Order Comment: Speci men Type: BLOOD SPECIMEN Ordering Facility: [facility] Address: [address] [place] [address] Performed By: #### D IPTET, C1EST #### [facility] CLIA [id number] [address] [place] [address] PNEUMOCOCCAL INTERPRETATION See Note Normal [facility] Comment on above: Order Comment: Speci men Type: BLOOD SPECIMEN Ordering Facility: [facility] Address: [address] [place] [address] Result Comment: INTE RPRETIVE INFORMATION: Streptococcus pneumoniae Antibodies, IgG A pre- and postvaccination comparison is required to adequately assess the humoral immune response to the pure polysaccharide Pneumovax 23 (PNX) and/or the protein conjugated Prevnar 7 (P7), Prevnar 13 (P13), Prevnar 20 (P20), and Vaxneuvance (V15) Streptococcus pneumoniae vaccines. Prevaccination samples should be collected prior to vaccine administration. Postvaccination samples should be obtained at least 4 weeks after immunization. Testing of postvaccination samples alone will provide only general immune status of the individual to various pneumococcal serotypes. In the case of pure polysaccharide vaccine, indication of immune system competence is further delineated as an adequate response to at least 50 percent of the serotypes in the vaccine challenge for those 2-5 years of age and to at least 70 percent of the serotypes in the vaccine challenge for those 6-65 years of age. Individual immune response may vary based on age, past exposure, immunocompetence, and pneumococcal serotype. Responder Status Antibody Ratio Nonresponder ........... Less than twofold increase and postvaccination concentration less than 1.3 ug/mL Good responder ......... At least a twofold increase and/or a postvaccination concentration greater than or equal to 1.3 ug/mL A response to 50-70 percent or more of the serotypes in the vaccine challenge is considered a normal humoral response.(Samaria, 2014) Antibody concentration greater than 1.0-1.3 ug/mL is generally considered long-term protection.(Samaria, 2015) References: 1. Samaria REYES, Mike RHOADES, Nascimento X, et al. Multilaboratory assessment of threshold versus fold-change algorithms for minimizing analytical variability in multiplexed pneumococcal IgG measurements. Clin Vaccine Immunol. 2014;21(7):982-988. 2. Samaria REYES, Juice KOENIG. Use and clinical interpretation of pneumococcal antibody measurements in the evaluation of humoral immune function. Clin Vaccine Immunol. 2015;22(2):148-152. This test was developed and its performance characteristics determined by [facility]. It has not been cleared or approved by the U.S. Food and Drug Administration. This test was performed in a CLIA-certified laboratory and is intended for clinical purposes. Performed By: [facility] [address] [place] [address] Roofing Technician: Jarocho Stewart MD, PhD CLIA Number: [id number] Performed By: #### D IPTET, C1EST #### [facility] CLIA [id number] [address] [place] [address] TRYPTASE BLOODon 05-15-2024 Tryptase [Mass/Vol] 3.8 ug/L Normal <8.4 [facility] Comment on above: Order Comment: Speci men Type: BLOOD SPECIMEN Ordering Facility: [facility] Address: [address] [place] [address] Performed By: #### D IPTET, C1EST #### [facility] CLIA [id number] [address] [place] [address] [id number] 05-11-2024 [id number] HNO ID: [id number] Author: HEATHER JOLLY PT Service: ? Author Type: Physical Therapist Type: [id number] Filed: 05/11/2024 15:43 Note Text: [facility] Physical Therapy Plan of Care Certification Patient Name: Hank Liu : 1970 CC #: [id number] Date: 05/11/2024 To: Sol Nuñez APRN* From Therapist: Heather Jolly PT RE: Patient Certification/ Recertification Your review, approval and electronic signature are required in order to comply with Payor: [employer] MEDICARE / Plan: [employer] MEDICARE PPO / Product Type: PPO / regulations. The identified Physical Therapy PLAN OF CARE for the patient is as follows: M62.89 Pelvic floor tension (primary encounter diagnosis) M62.89 Pelvic floor dysfunction PLAN OF CARE: Assessment: Patient presents with with chief complaint of abdominal pain, constipation, multiple joint aches, declining mobility. Sig medical history; multiple abdominal surgeries with resultant scar tissue. Patient presents with impairments in hip/lumbar/pelvic floor flexibility, independence in exercise, strength, symptom management, breathing mechanics/mobility, muscle coordination, and tissue tenderness. PMH significant for: mult surgeries and medical trauma (see below). She will benefit from skilled therapy services to meet the goals established for this plan of care as noted below. Goals for Episode of Care: established 05/11/24 BLADDER Patient reports NOCTURIA 0-1 times to demonstrate normalized bladder function. BOWEL Patient reports increased ability to FULLY EMPTY bowels without straining at least 90% of the time to normalize bladder/bowel function. Patient reports having 1 bowel movements per day without use of bowel aids to demonstrate improved bowel function. LIFESTYLE Patient will report decreased pain rating by 2 points to meet minimal clinical important difference for numeric pain rating scale. BREATHING Improve back and side body EXPANSION by 50% to improve diaphragm mobility. Patient reports ability to BREATHE INTO PELVIC FLOOR with exercises/function to improve PF/Julianne dynamics and decrease PF tension. Patient displays improved range of motion, coordination, and muscle dynamics of Julianne as evidenced by the ability to inhale without PARADOXICAL CONTRACTION at least 100% of the time to normalize bladder/bowel function; reduce pelvic pain. TBD BIOMECHANICS AND PF MECHANICS Patient will be able to HIP HINGE to be able to demonstrate good glut eccentric strength/mobility for functional activities at a home and to decrease lumbar overuse/injury. Patient will improve hip mobility to WNL so hips are able to better support the pelvic floor so to help decrease pelvic floor symptoms. Patient will have FULL apical EXPANSION and posterior mediastinum expansion to improve diaphragm mechanics so to improve its biomechanical relationship with the pelvic floor. Patient displays DECREASED MUSCLE SPASMS in PF MM's noted in evauation to allow for decreased pain levels, improved bladder/bowel function. TBD Time Frame for Goals and Treatment : 08/09/24 Planned Interventions, Frequency, and Duration: Current Frequency: 1x every other week Duration: 16 weeks Total Number of Visits Planned: 8 Planned Treatment Interventions: Therapeutic exercise (90731), Manual therapy (03337), Self-fpc management (68008), Patient/Family/Caregiver Education PLAN FOR NEXT VISIT: bowel diary; assess LE strength; internal for dyssnergia; ribs, sitting on ball for PF awareness Patient demonstrates good understanding of plan of care and treatment. The above goals and plan of care were discussed and agreed upon by patient/family. For further details regarding this patient refer to the Physical Therapy electronically documented visit dated 05/11/2024. Provider Attestation I have reviewed the treatment plan for Hank Liu, [facility]# [id number] for the period of 05/11/24 -- 08/09/24, established on 05/11/2024. Signature certifies the need for therapy services. Normal [facility] CNTHERAPYon 05-11-2024 CNTHERAPY OT/PT/Speech Visit ([facility]) -------- HANK LIU ([id number]) 1970 F Date Time Provider Department 05/11/24 1:15 PM HEATHER JOLLY [facility] Date Time Provider Department [place] 05/11/2024 1:15 PM [id number][facility] [place] [facility] Reason for Visit: PT Eval [747] Primary Visit Diagnosis:Pelvic floor tension [M62.89] Other Visit Diagnosis:Pelvic floor dysfunction [M62.89] Allergies As of Date: 05/11/2024 Noted Allergy Reaction IODINE 04/18/2017 4 - Hives 10 - Anaphylaxis 12 - Shortness of Breath Comments: Other reaction(s): anaphylaxis Other reaction(s): Unknown ATORVASTATIN 05/25/2021 14 - Other: See Comments Comments: Other Reaction(s): arthralgia/myalgia BUPROPION 05/10/2023 14 - Other: See Comments Comments: Other Reaction(s): Other: See Comments IODINATED CONTRAST MEDIA 11/29/2018 Hives 14 - Other: See Comments 12 - Shortness of Breath Comments: Other reaction(s): Difficulty Breathing Other Reaction(s): Difficulty Breathing, Other: See Comments Other reaction(s): Difficulty Breathing MIRTAZAPINE 05/25/2021 4 - Hives 14 - Other: See Comments NALBUPHINE 04/18/2017 12 - Shortness of Breath 14 - Other: See Comments 17 - Myalgia Comments: Other Reaction(s): muscle spams, and breathing, Unknown NUBAIN (NALBUPHINE HCL) 04/18/2017 16 - Unknown Date Reviewed: 04/27/2024 Reviewed by: Zakiya Perdomo MA - Fully Assessed Prescriptions as of 05/11/2024 - esomeprazole (NEXIUM) 40 mg capsule Take 40 mg by mouth daily at bedtime. - cefUROXime (CEFTIN) 500 mg tablet Take 500 mg by mouth two times a day. - sucralfate (CARAFATE) 1 gram tablet Take 1 tablet by mouth three times a day. - pantoprazole DR (PROTONIX) 40 mg tablet Take 1 tablet by mouth once daily. - hyoscyamine SR (LEVBID) 0.375 mg 12 hr tablet Take 1 tablet by mouth two times a day. - senna-docusate (SENOKOT-S) 8.6-50 mg per tablet Take 2 tablets by mouth daily at bedtime. - rosuvastatin (CRESTOR) 40 mg tablet Take 40 mg by mouth daily at bedtime. - traZODone (DESYREL) 100 mg tablet Take 100 mg by mouth daily at bedtime. - rOPINIRole (REQUIP) 0.25 mg tablet Take 0.5 mg by mouth once daily as needed. Binder Layer: Addendum Therapy (PT/OT/Speech/Resp) ID: [id number] 05/11/2024 2:35 PM Author: HEATHER JOLLY Signed by HEATHER JOLLY PT on 05/11/2024 at 2:35 PM * * * This document replaces document [id number] * * * Document text: Program_ID:[id number] Access Code: [email or web address] URL: [email or web address] Date: 05-11-2024 Prepared By: Heather Jolly Program Notes Exercises - Abdominal Massage - 2-3 x daily - 7 x weekly - 1 sets - 10 reps - SMFR ball to hips and spine - 1 x daily - 7 x weekly - 1 sets - reps - Crocodile breathing - 1 x daily - 7 x weekly - 1 sets - 1 reps - Inverted breathing with and without blocks under knees - 1 x daily - 7 x weekly - 1 sets - 8 reps - External Pelvic Floor Awareness - 1 x daily - 7 x weekly - 1 sets - 10 reps - Seated prayer stretch for back body expansion - 1 x daily - 7 x weekly - 1 sets - 10 reps Normal [facility] THERAPY NTon 05-11-2024 THERAPY NT HNO ID: [id number] Author: HEATHER JOLLY PT Service: ? Author Type: Physical Therapist Type: Therapy (PT/OT/Speech/Resp) Filed: 05/11/2024 14:35 Note Text: Program_ID:[id number] Access Code: [email or web address] URL: [email or web address] Date: 05-11-2024 Prepared By: Heather Jolly Program Notes Exercises - Abdominal Massage - 2-3 x daily - 7 x weekly - 1 sets - 10 reps - SMFR ball to hips and spine - 1 x daily - 7 x weekly - 1 sets - reps - Crocodile breathing - 1 x daily - 7 x weekly - 1 sets - 1 reps - Inverted breathing with and without blocks under knees - 1 x daily - 7 x weekly - 1 sets - 8 reps - External Pelvic Floor Awareness - 1 x daily - 7 x weekly - 1 sets - 10 reps - Seated prayer stretch for back body expansion - 1 x daily - 7 x weekly - 1 sets - 10 reps Normal [facility] 25(OH)D3 [facility] 2023 25-hydroxyvitamin D3 [Mass/Vol] 31.2 ng/mL Normal 31.0-80.0 [facility] Comment on above: Order Comment: Speci men Type: BLOOD SPECIMEN Ordering Facility: [facility] Address: [address] [place] [address] Result Comment: Clas sification of 25 [place] Vitamin D status: Deficiency/Insufficiency: < or = 30 ng/ml. Sufficiency/Optimal Levels: 31-80 ng/mL Toxicity: > 100 ng/mL. Test performed by chemiluminescent immunoassay. Performed By: #### D IPTET, C1EST #### [facility] CLIA [id number] [address] [place] [address] 25-hydroxyvitamin D3 [Mass/V ol]on 04-27-2024 Interpretation and review of laboratory results Normal [facility] The reference range interval was based on an analysis of samples from healthy adults and may not pertain to children from 0-18 years old. [facility] ARMANI BY IFA WITH REFLEXon Nuclear Ab Ql (S) Negative Normal Negative [facility] Comment on above: Order Comment: Speci kelly Type: BLOOD SPECIMENOrdering Facility: [facility] Address: [address] [place] [address] Result Comment: Anti -nuclear antibody test is used as an aid in diagnosis of systemic autoimmune diseases. Where positive and clinically warranted, follow-up using disease-specific testing is recommended. Low positive titers are not uncommon with advanced age, certain chronic infections, and malignancies among others. Test methodology: Indirect fluorescence immunoassay (IFA) using HEp-2 cells. Performed By: #### A NAIFR ####[facility] LABCLIA [id number] [place] [address] [place] C-REACTIVE PROTEINon 024 CRP [Mass/Vol] mg/dL NINF - 0.9 mg/dL [facility] C3 COMPLEMENTon 04-27-2024 Complement C3 [Mass/Vol] 194 mg/dL High 86 - 166 mg/dL [facility] C3 SerPl-mCncon 04-27-2024 Complement C3 [Mass/Vol] 194 mg/dL High 86-166 [facility] Comment on above: Order Comment: Michel mendoza Type: BLOOD SPECIMENOrdering Facility: [facility] Address: [address] [place] [address] Performed By: #### 1 988-5, 55659-5, 4485-9, 4498-2 ####[facility] LABCLIA [id number] [place] [address] [place] C4 COMPLEMENTon 04-27-2024 Complement C4 [Mass/Vol] 32 mg/dL 13 - 46 mg/dL [facility] C4 SerPl-mCncon 04-27-2024 Complement C4 [Mass/Vol] 32 mg/dL Normal 13-46 [facility] Comment on above: Order Comment: Speci men Type: BLOOD SPECIMENOrdering Facility: [facility] Address: [place] [address] Performed By: #### 1 988-5, 99791-5, 4485-9, 4498-2 ####[facility] LABCLIA [id number] [facility] [id number] OF [facility] CCF ESR BLD QN WESTRGRNon CCF ESR BLD QN WESTRGRN 5 [address] [facility] Specimen Type: BLOOD SPECIMEN Ordering Facility: [facility] Address: [place] [address] Original Ordering Provider: LINDA VALERO [facility] CNOVon 04-27-2024 CNOV Office Visit (RHEUMN ) -------- HANK LIU ([id number]) 1970 F Date Time Provider Department 04/27/24 1:00 PM LINDA VALERO RHEUMN During your visit today, we recorded the following information about you: Temperature Pulse Blood pressure Weight 97.4 degrees 99/minute 125/70 90.5 kg Height 1.549 m Linda Valero MD 04/29/2024 6:33 PM Signed [facility] New Patient Visit Date of Service: 04/27/2024 Patient: Hank Liu Medical Record: [id number] Primary Care Physician: Trey Brown DO Last Rheumatology visit: 04/27/2024 (with Linda Valero) Consultation requested by Rachael Katz CNP for an opinion regarding polyarthralgia. My final recommendations will be communicated back to the requesting physician by way of shared Medical record or letter to requesting physician via US mail. History of Present Illness Hank Liu is a 53 year old female who presents for an in-person visit for evaluation of positive ARMANI. Previously seen by [facility], last visit 08/2023. Recommended 6 month follow-up for low positive ARMANI, no systems concerning for SLE or other systemic autoimmune process. History of GI carcinoid tumor s/p surgery. Report she's had an inflammation problem for the 2-3 years. This manifest as abdominal swelling - wearing a bra or jeans is very irritating. Has pain with breathing related to this. Not worse when deep breath or cough, not position. But very tender to touch along her ribcage. Stiffness and pain in shoulders, back, neck, abdomen. Fatigue and extreme tiredness. Also has all over bone pain, pain is worse the more she does. Symptoms are persistent. But some days are worse than other - food seems to be a trigger but she is not sure what food triggers her. - She has 10-15 minutes of morning stiffness. Then as the day goes on her symptoms worsen. After 2-3 hours of working, states she has so much inflammation that she can't do anything else. - Occasional finger/knee swelling, not very bothersome to her. States this is from arthritis. - Feels like her torso is very sensitive, anything tight is painful. She does not wear a bra or underwear - Heat aggravates her symptoms. - Fatigue is very severe, worse the more she does. - Sleep is okay, she takes trazodone. - No brain fog. thinks she has been forgetful.Had seen Neurologist for this who said she is okay now but he is going to keep an eye on her. - Reports inflammation is better on prednisone, her swelling and soreness improves. - Ibuprofen helpful too but makes her stomach worse if she takes too much. Abdominal distension/swelling has been attributed to constipation, reports this was seen on x-ray. Lost appetite, has lost 13 pounds over 2.5 weeks. Abdominal pain and nausea is constant. - Symptoms started about 2 years ago, worsened 2 months ago after strep infection and colonoscopy. Pins and needles in right arm (started 6 weeks ago). Loses sensation (pins/needles in her feet when she is standing too long). Reports 6 strep infections this year. Diagnosed by strep test at Urgent Care. Left sided headache and earache, swollen glands, mouth ucers. Antibiotics have helped. EGD 03/2024 - gastritis and esophagitis. Pantoprazole caused more bloating. Was on omeprazole and did better. Now on carafate. No Raynaud's. Brother has ankylosing spondylitis. Review of Systems Review of Systems CONSTITUTION: Positive for: Recent weight change Negative for: Fever HEENT: Positive for: Mouth sores Negative for: Nosebleeds, Trouble swallowing and Dry mouth RESPIRATORY: Positive for: Pain with breathing Negative for: Cough and Shortness of breath GASTROINTESTINAL: Positive for: Melena, Diarrhea, Heartburn and Abdominal pain MUSCULOSKELETAL: Positive for: Arthralgias, Myalgias and Morning Joint Stiffness Negative for: Muscle weakness and Joint swelling NEUROLOGICAL: Positive for: Headaches and Numbness Negative for: Memory loss SKIN: Negative for: Rash, Skin changes, Hair loss and Nail changes EYES: Negative for: Eye pain, Eye redness, Eye dryness and visual disturbance CARDIOVASCULAR: Negative for: Chest pain and Leg swelling GENITOURINARY: Negative for: Dysuria and Hematuria HEMATOLOGIC/LYMPHATIC: Positive for: Swollen glands All other reviewed and negative other than HPI. Relevant Data Hank is RF negative - 9 (04/27/2024). Myositis Labs Relevant History Imaging Last CT Chest - Impression Only CT CHEST W IVCON Exam End: 11/30/2023 10:55 AM (Final result) Impression: IMPRESSION: 1. Within the posterior base of the right lower lobe, there are stable linear and nodular opacities. Although nonspecific, these have been present on multiple prior studies and are decreased in extent when compared to a more remote comparison exam from 05/05/2023. These did not demonst (more content not included)... Normal [facility] CRP SerPl-mCncon 04-27-2024 CRP [Mass/Vol] mg/L Normal <0.9 [facility] Comment on above: Order Comment: Speci men Type: BLOOD SPECIMENOrdering Facility: [facility] Address: [address] [address] Performed By: #### 1 988-5, 29714-8, 4485-9, 4498-2 ####[facility] LABCLIA [id number] [place] [address] [place] Complement C3 [Mass/Vol]on 1 06-28-2023 Interpretation and review of laboratory results Abnormal [facility] Cyclic citrullinated peptide IgG Qnon 04-27-2024 CCP ANTIBODY IGG QUALITATIVE Negative Normal Negative [facility] Comment on above: Order Comment: Speci men Type: BLOOD SPECIMEN Ordering Facility: [facility] Address: [address] [place] [address] Performed By: #### 3 3935-8 #### [facility] CLIA [id number] [address] [place] [address] [place] ESR Westergren method (Bld) [Velocity]on 04-27-2024 ESR (Bld) [Velocity] 5 mm/h [facility] Interpretation and review of laboratory results Normal [facility] ESR (Bld) [Velocity] 5 mm/h Normal 0-20 [facility] Comment on above: Order Comment: Speci men Type: BLOOD SPECIMEN Ordering Facility: [facility] Address: [address] [place] [address] Performed By: #### D IPTET, C1EST #### [facility] [id number] [address] [place] [address] No Panel Informationon 04-27 Interpretation and review of laboratory results Normal [facility] RHEUMATOID FACTORon 04-27-20 Rheumatoid factor Qn NINF [facility] Rheumatoid fact SerPl-aCncon 04-27-2024 Rheumatoid factor Qn [IU]/mL Normal <16 [facility] Comment on above: Order Comment: Speci men Type: BLOOD SPECIMENOrdering Facility: [facility] Address: [address] [place] [address] Performed By: #### 1 988-5, 85749-7, 4485-9, 4498-2 ####[facility] LABCLIA [id number] [place] [address] [place] VITAMIN D 25 HYDROXYon 04-27 25-hydroxyvitamin D3 [Mass/Vol] 31.2 ng/mL 31.0 - 80.0 ng/mL [facility] Comment on above: Classification of 25 [place] Vitamin D status: Deficiency/Insufficiency: < or = 30 ng/ml. Sufficiency/Optimal Levels: 31-80 ng/mL Toxicity: > 100 ng/mL. Test performed by chemiluminescent immunoassay. cCP IgG SerPl-aCncon 04-27-2 024 Cyclic citrullinated peptide IgG Qn <15 Normal <20 [facility] Comment on above: Order Comment: Speci men Type: BLOOD SPECIMEN Ordering Facility: [facility] Address: [address] [place] [address] Performed By: #### 3 3935-8 #### [facility] CLIA [id number] [address] [place] [address] OF [facility] [place] 04-26-2024 SILAS Telephone (DDQ) -------- HANK LIU ([id number]) 1970 F Date Time Provider Department 04/26/24 NATY BOOKER JR During your visit today, we recorded the following information about you: Guadalupe Baez 04/26/2024 2:53 PM Elizabeth Hidalgo is calling Naty Booker Jr., DO today to request medication. Pt states that she has had stomach pain since her EGD/ Colonoscopy. States that it feels like her stomach is on fire She is on antibiotics at this time as well. Please call to advise Pharm: Daquan Juárez Patient has been identified by name and birthdate. Duration of symptoms: N/A Person calling: self Call patient at: at home [phone] (home) [phone] (cell) Was an appointment scheduled: No Closing statement: Results or non-symptom based questions: Thank you for calling [facility], your call will be returned within the next business day. Guadalupe Baez Allergies As of Date: 04/26/2024 Noted Allergy Reaction IODINE 04/18/2017 4 - Hives 10 - Anaphylaxis 12 - Shortness of Breath Comments: Other reaction(s): anaphylaxis Other reaction(s): Unknown ATORVASTATIN 05/25/2021 14 - Other: See Comments Comments: Other Reaction(s): arthralgia/myalgia BUPROPION 05/10/2023 14 - Other: See Comments Comments: Other Reaction(s): Other: See Comments IODINATED CONTRAST MEDIA 11/29/2018 4 - Hives 14 - Other: See Comments 12 - Shortness of Breath Comments: Other reaction(s): Difficulty Breathing Other Reaction(s): Difficulty Breathing, Other: See Comments Other reaction(s): Difficulty Breathing MIRTAZAPINE 05/25/2021 4 - Hives 14 - Other: See Comments NALBUPHINE 04/18/2017 12 - Shortness of Breath 14 - Other: See Comments 17 - Myalgia Comments: Other Reaction(s): muscle spams, and breathing, Unknown NUBAIN (NALBUPHINE HCL) 04/18/2017 16 - Unknown Date Reviewed: 03/29/2024 Reviewed by: Brent Rene RN - Fully Assessed Reason for Visit: Patient Update [1234] Patient Question [3077] Order(s):sucralfate (CARAFATE) 1 gram tabletTake 1 tablet by mouth three times a day.Disp: 90 tabletRfl: [address] (PROTONIX) 40 mg tabletTake 1 tablet by mouth once daily.Disp: 30 tabletRfl: 3 Prescriptions as of 06/08/2024 - esomeprazole (NEXIUM) 40 mg capsule Take 40 mg by mouth daily at bedtime. - cefUROXime (CEFTIN) 500 mg tablet Take 500 mg by mouth two times a day. - sucralfate (CARAFATE) 1 gram tablet Take 1 tablet by mouth three times a day. - pantoprazole DR (PROTONIX) 40 mg tablet Take 1 tablet by mouth once daily. - hyoscyamine SR (LEVBID) 0.375 mg 12 hr tablet Take 1 tablet by mouth two times a day. - senna-docusate (SENOKOT-S) 8.6-50 mg per tablet Take 2 tablets by mouth daily at bedtime. - rosuvastatin (CRESTOR) 40 mg tablet Take 40 mg by mouth daily at bedtime. - traZODone (DESYREL) 100 mg tablet Take 100 mg by mouth daily at bedtime. - rOPINIRole (REQUIP) 0.25 mg tablet Take 0.5 mg by mouth once daily as needed. 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 PANTOPRAZOLE 40 MG TABLET,DELAYED RE* 30 t* 3 04/26/2024 Route: ORAL Sig: Take 1 tablet by mouth once daily. Medications Discontinued During This Encounter Prescriptions - pantoprazole DR (PROTONIX) 40 mg tablet (Discontinued) Take 1 tablet by mouth once daily. Encounter Status:Closed by GUADALUPE BAEZ on 06/08/24 [facility] Ambulatory Visit Summaryon 1 06-26-2023 Ambulatory Visit Summary Ambulatory Visit Summary HANK LIU :1970 Visit Date:04/25/2024 Ambulatory Visit Instructions Your Diagnosis Kidney stones Other urethral stricture, female Your Care Team Attending Physician - HEATHER SAMUEL PA-C Primary Care Physician - TREY BROWN DO This Is Your Medications List ascorbic acid (Vitamin C) cefuroxime (cefuroxime 500 mg oral tablet) docusate (Dulcolax Stool Softener) ibuprofen (ibuprofen 800 mg Tab) multivitamin (Multi Vitamin+) ropinirole rosuvastatin trazodone (traZODONE 100 mg Tab) Procedures Performed Cystourethroscopy with dilation of urethral stricture (08/30/2019), Bowel, Breast, Cholecystectomy, Colonoscopy, Hysterectomy, Left shoulder. Discharge Vitals Heart Rate (Peripheral) 82 Blood Pressure 128/86 Height 62 in Height 158 cm Weight 199.739 lb Weight 90.6 kg BMI 36.29 Medications What How Much When Instructions Unchanged ascorbic acid (Vitamin C) Every day Unchanged cefuroxime (cefuroxime 500 mg oral tablet) Unchanged docusate (Dulcolax Stool Softener) By Mouth 2 times a day Unchanged ibuprofen (ibuprofen 800 mg Tab) By Mouth 3 times a day Unchanged multivitamin (Multi Vitamin+) Unchanged ropinirole By Mouth Unchanged rosuvastatin 40 Milligram By Mouth Every day Unchanged trazodone (traZODONE 100 mg Tab) By Mouth 2 times a day Allergies iodine (Unknown) Problems Ongoing - Any problem that you are currently receiving treatment for. Anxiety Depression Dysuria Former smoker Frequency of urination Gallstone Hesitancy Hypercholesterolemia Kidney stones Microhematuria Nocturia Other urethral stricture, female Smoker Stomach cancer AURA (stress urinary incontinence, female) Ureteral stone with hydronephrosis Vaginitis Patient Survey You may receive a survey via text or e-mail asking about your office visit. Please share your experience with us by completing your survey. We appreciate your feedback and thank you for choosing us for your care. Normal [facility] Urology Office/Clinic Noteon 04-25-2024 Urology Office/Clinic Note Urology Office/Clinic Note Chief Complaint 6 mo follow up HPI Staff 53 year old female patient here for a 3 month follow from 01/26/24 ESWL and cysto with metabolic work up and KUB. Previous Dx: ureteral stone with hydronephrosis, kidney stones, AURA, other urethral stricture female. *tamsulosin 0.4 mg qd. Currently on anitbiotic for strep throat Dysuria: no Incomplete bladder emptying: no Hematuria: no Frequency: every hour Urgency: no Nocturia: 2-3 x Stream: steady Leaking: no Post void dripping: no Wearing pads/ Depends: no Urge incontinence: no Stress incontinence: no, has bladder mesh Incontinence without Sensory Awareness: no Abdominal pain: stomach burning, and nausea Flank pain: yes Sexual complaints: _ BPSS Score: 15 Review of Systems PHQ Score Initial Depression Screen Score: 0 SCORE Physical Exam Vitals & Measurements HR: 82(Peripheral) BP: 128/86 HT: 62 in HT: 158 cm WT: 90.6 kg WT: 199.739 lb BMI: 36.29 Assessment/Plan BBSQ 15 very good control. 1. Kidney stones (N20.0: Calculus of kidney) S/p R ESWL/ur dil/ureteroscopy 01/26/24 for 5-6mm stone. This was her first stone episode. KUB 04/12/24 shows no stones. Metabolic eval reviewed w pt. Bloodwork looks good. Urine volume low - 1800ml, pt to increase to 2500-3000ml daily. 24hr urine Na high (256), pt to reduce dietary Na. 24h urine Oxalate borderline high (31), pt given low oxalate diet printed information & encouraged to follow. F/u PRN. Ordered: E&M of Est. Patient Moderate 30-39 Min 78049 Urnls Dip Stick Auto w/o Microscopy POC 03999 Follow-up With When Contact Information [facility] Additional Instructions: Only if needed/new problems arise. No scheduled appointment indicated at this time. Patient Education Kidney Stones, [id number] Problem List/Past Medical History Ongoing Anxiety Depression Dysuria Former smoker Frequency of urination Gallstone Hesitancy Hypercholesterolemia Kidney stones Microhematuria Nocturia Smoker Stomach cancer AURA (stress urinary incontinence, female) Ureteral stone with hydronephrosis Vaginitis Historical No qualifying data Procedure/Surgical History Cystourethroscopy with dilation of urethral stricture (08/30/2019), Bowel, Breast, Cholecystectomy, Colonoscopy, Hysterectomy, Left shoulder. Medications cefuroxime 500 mg oral tablet Dulcolax Stool Softener, Oral, BID ibuprofen 800 mg Tab, Oral, TID Multi Vitamin+ ropinirole, Oral rosuvastatin, 40 mg, Oral, Daily traZODONE 100 mg Tab, Oral, BID Vitamin C, Daily Allergies iodine (Unknown) Social History Alcohol Past. Beer, Wine. 1-2 times per week., 04/23/2024 Substance Abuse Never., 04/23/2024 Tobacco Former smoker, quit more than 30 days ago Tobacco Use:., 04/25/2024 Family History Alcoholism: Father. Colon cancer: Mother and Brother. Diabetes mellitus type 1: Mother. Hypercholesterolaemia: Mother and Father. Hypertension: Father. Kidney stones: Father. Stroke: Father. Immunizations Vaccine Date Status influenza virus vaccine, inactivated 02/13/2021 Recorded SARS-CoV-2 (COVID-19) mRNA-1273 vaccine 06/23/2020 Recorded SARS-CoV-2 (COVID-19) mRNA-1273 vaccine 05/27/2020 Recorded influenza virus vaccine, inactivated 02/01/2020 Recorded influenza virus vaccine, inactivated 12/24/2019 Recorded influenza virus vaccine, live, trivalent 02/06/2019 Recorded influenza virus vaccine, inactivated 01/19/2019 Recorded influenza virus vaccine, inactivated 03/08/2018 Recorded influenza virus vaccine, inactivated 04/15/2017 Recorded Lab Results Ambulatory Point of Care Results Blood Urine Dipstick: Negative (04/25/24 10:54:00) Glucose Urine Dipstick: Negative (04/25/24 10:54:00) Ketones Urine Dipstick: Negative (04/25/24 10:54:00) Leukocytes Urine Dipstick: Trace (04/25/24 10:54:00) Nitrite Urine Dipstick: Negative (04/25/24 10:54:00) Protein Urine Dipstick: Negative (04/25/24 10:54:00) Specific [place] Urine Dipstick: 1.025 (04/25/24 10:54:00) Urine Appearance Urine Dipstick: Clear (04/25/24 10:54:00) Urine Color Urine Dipstick: Yellow (04/25/24 10:54:00) Urobilinogen Urine Dipstick: Normal 0.2-1 EU/dl (04/25/24 10:54:00) pH Urine Dipstick: 6 (04/25/24 10:54:00) Normal [facility] Comment on above: Result Comment: Elec tronically Signed By: HEATHER SAMUEL PA-C\Date and Time Signed: 04/25/24 14:41 EST No Panel InformationOrdered By: Hernando Hylton on 04-24-2024 COVID Antigen (POC) [facility] Quick Strep (POC) [facility] COVID Antigen (POC) [facility] Quick Strep (POC) [facility] CT chest wo conon 04-17-2024 CT chest wo con [facility] [place] [address] [place] [address] CT Scan Report Signed Patient: Hank Liu MR#: [id number] 30 : 1970 Acct:[id number] Age/Sex: 53 / F ADM Date: 04/17/24 Loc: CT Room: Type: [facility] Attending Dr: Campos Wong DO Copies to: Campos Wong DO Ordering Provider: Campos Wnog DO Date of Service: 04/17/24 CT/CT chest wo con: 1 year F/U CT CHEST WITHOUT IV CONTRAST: CLINICAL HISTORY: Follow-up lung nodules COMPARISON: Outside CT chest 05/05/2023. No report. TECHNIQUE: Spiral images were obtained through the chest without IV contrast. This CT exam was performed using one or more following dose reduction techniques: Automated exposure control, adjustment of the mA and/or kV according to patient size, or use of iterative reconstruction technique. FINDINGS: Mediastinum:Thoracic aorta appears normal in caliber. Pulmonary trunk appears nondilated. No pleural effusion. No lymphadenopathy. The esophagus is grossly unremarkable. Lungs:No consolidation pneumothorax or pleural effusion. Mild lung scarring. Previously identified consolidation involving the right lower lobe has improved with residual scarring. No suspicious nodule is seen on today's study. Abd:Hepatic steatosis. Gallbladder has been removed. 3 mm stone right kidney. Soft tissues/Bones: No acute findings. Osseous structures demonstrate degenerative change. CT/CT chest wo con IMPRESSION: Previously seen consolidation involving the right lower lobe has resolved with residual scarring noted. No suspicious pulmonary nodule is seen on today's study. Impression dictated by: Yomi Hairston Jr. DRober04/17/2024 4:37 PM Dictation Location: RADIO-PC-18 Transcribed By: PWS 04/17/24 1637 Dictated By: Yomi Hairston Jr, 04/17/24 1634 Signed By: 04/17/24 163 Normal [facility] XR cerv spine AP/LAT/FLX/EXT on 04-17-2024 XR cerv spine AP/LAT/FLX/EXT [facility] [address] XRay Report Signed Patient: Hank Liu MR#: [id number] [birth year] : 1970 Acct:[id number] Age/Sex: 53 / F ADM Date: 04/17/24 Loc: XD Room: Type: [facility] Attending Dr: Vu Bermudez DO Copies to: Vu Bermudez DO Ordering Provider: Vu Bermudez DO Date of Service: 04/17/24 XR/XR cerv spine AP/LAT/FLX/EXT: M54.2 - Cervicalgia XR cerv spine AP/LAT/FLX/EXT 04/17/2024 12:37 PM SIGNS AND SYMPTOMS: Neck pain with numbness down right arm PROTOCOLS: Frontal, lateral, and flexion-extension views of the cervical spine COMPARISON: 02/25/2020 FINDINGS: There is 4 mm of retrolisthesis of C5 upon C6 without pathologic movement on flexion or extension. Facet degenerative changes are noted, left greater than right. There is preservation of the vertebral body heights. There is mild to moderate disc height loss with operative joint spurring at C5-C6. There is no fracture or destructive lesion. XR/XR cerv spine AP/LAT/FLX/EXT IMPRESSION: There is 4 mm of retrolisthesis of C5 upon C6 without pathologic movement on flexion or extension. Degenerative changes are noted at C5-C6 involving the uncovertebral joints and intervertebral discs. Impression dictated by: Jose Luis Taylor M.D.04/17/2024 5:06 PM Dictation Location: RADIO-PC-23 Transcribed By: SHARMAINE 04/17/24 1706 Dictated By: Jose Luis Taylor II, MD 04/17/24 1658 Signed By: 04/17/24 170 Normal [facility] 24 Hr Urine Uric Acidon Uric Acid, 24 Hr Urine 556.2 Normal 173.7 -902. 1 [facility] Comment on above: Order Comment: TV = 1800ML URINE VOLUME (MILLILTERS): 1800 Result Comment: Perf ormed at: CB - [facility], [place] [id number] Manager Of Merchandising: Zbigniew Deluca PhD, Phone: [phone] Performed By: #### B MP, CBC, LIPASE, HEPATIC #### [address] Urine Uric Acid 30.9 mg/dL Normal Not Estab. The [facility] Comment on above: Order Comment: TV = 1800ML URINE VOLUME (MILLILTERS): 1800 Performed By: #### B MP, CBC, LIPASE, HEPATIC #### [address] 24 hour urine creatinine esa surementOrdered By: Seamus Dyer on 04-12-2024 Urine Creatinine 24 Hour 1.31 g/24 hr 0.80-1.89 [facility] 24 hour urine sodium measure ment (moles/time)Ordered By: Seamus Dyer on 04-12-2024 Sodium (24H U) [Moles/Time] 24 hour urine sodium measurement (moles/time) High 40-220 [facility] 24 hour urine uric acid spencer urement (mass/time)Ordered By: Seamus Dyer on 04-12-2024 Urate (24H U) [Mass/Time] 24 hour urine uric acid measurement (mass/time) 173.7-902. 1 [facility] Comment on above: Performed at: CB - [facility] [address] [place] [id number] Director: Zbigniew Deluca PhD, Phone: [phone] Blood Urea Nitrogenon 2023 Urea nitrogen [Mass/Vol] 10 mg/dL Normal 7-25 [facility] Comment on above: Performed By: #### B UN, LYTES, CREAT, PTH, CA, URIC #### [facility] [address] [id number] [place] Calciumon 04-12-2024 Calcium [Mass/Vol] 9.3 mg/dL Normal 8.6-10.3 [facility] Comment on above: Performed By: #### B UN, LYTES, CREAT, PTH, CA, URIC #### [facility] [address] [id number] [place] Calcium [Mass/time] in 24 ho ur UrineOrdered By: Seamus Dyer on 04-12-2024 Calcium (24H U) [Mass/Time] Calcium [Mass/time] in 24 hour Urine 0-320 [facility] Calcium [Mass/volume] in 24 hour UrineOrdered By: Seamus Dyer on 04-12-2024 Calcium (24H U) [Mass/Vol] Calcium [Mass/volume] in 24 hour Urine Not Estab. [facility] Calcium [Mass/volume] in Ser um or PlasmaOrdered By: Seamus Dyer on 04-12-2024 Calcium [Mass/Vol] Calcium [Mass/volume ] in Serum or Plasma 8.6-10.3 [facility] Calcium, 24Hr Urineon 2023 Calcium, Urine 11.2 mg/dL Normal Not Estab. The [facility] Comment on above: Order Comment: TV = 1800ML URINE VOLUME (MILLILTERS): 1800 Performed By: #### B MP, CBC, LIPASE, HEPATIC #### [facility] [address] [id number] [place] Calcium, Urine 24 Hr 202 Normal 0-320 [facility] Comment on above: Order Comment: TV = 1800ML URINE VOLUME (MILLILTERS): 1800 Performed By: #### B MP, CBC, LIPASE, HEPATIC #### [facility] [address] [id number] [place] Carbon dioxide, total [Moles /volume] in Serum or PlasmaOrdered By: Seamus Dyer on 04-12-2024 CO2 [Moles/Vol] Carbon dioxide, tota l [Moles/volume] in Serum or Plasma 21.0-31.0 [facility] Chloride [Moles/volume] in S samson or PlasmaOrdered By: Seamus Dyer on 04-12-2024 Chloride [Moles/Vol] Chloride [Moles/vol ume] in Serum or Plasma 98-107 [facility] Citric Acid, Urine, 24 Houro n 04-12-2024 Citric Acid, Urine 465 mg/L Normal Undefined [facility] Comment on above: Order Comment: TV = 1800ML URINE VOLUME (MILLILTERS): 1800 Result Comment: This test was developed and its performance characteristics determined by [facility]. It has not been cleared or approved by the Food and Drug Administration. Performed By: #### B MP, CBC, LIPASE, HEPATIC #### [address] Citric Acid, Urine, 24HR 837 Normal 320-1240 [facility] Comment on above: Order Comment: TV = 1800ML URINE VOLUME (MILLILTERS): 1800 Result Comment: Perf ormed at: [facility] [address] [id number] Manager Of Merchandising: Corey Issa MD, Phone: [phone] PERFORMED BY: [place] [address] PATHOLOGIST POWER STATION OPERATOR SHANIKA PERRY M.D. Performed By: #### B MP, CBC, LIPASE, HEPATIC #### [address] Fifi Time and Vol 24 hr uron 04-12-2024 Total Volume, Urine 1800 Normal [facility] Comment on above: Order Comment: URINE COLLECTION TIME (HRS): 24 URINE VOLUME (MILLILTERS): 1800 Result Comment: PERF ORMED BY: [place] [address] PATHOLOGIST POWER STATION OPERATOR SHANIKA PERRY M.D. Performed By: #### B MP, CBC, LIPASE, HEPATIC #### [address] Urine Collection Time 24 Normal [facility] Comment on above: Order Comment: URINE COLLECTION TIME (HRS): 24 URINE VOLUME (MILLILTERS): 1800 Performed By: #### B MP, CBC, LIPASE, HEPATIC #### [place] [id number] [facility] Creatinineon 04-12-2024 Creatinine [Mass/Vol] 0.68 mg/dL Normal 0.60-1.20 [facility] Comment on above: Performed By: #### B UN, LYTES, CREAT, PTH, CA, URIC #### [address] GFR/1.73 sq M.predicted MDRD (S/P/Bld) [Vol rate/Area] mL/min/{1.73_m2} Normal [facility] Comment on above: Performed By: #### B UN, LYTES, CREAT, PTH, CA, URIC #### [address] Creatinine [Mass/volume] in Serum or PlasmaOrdered By: Seamus Dyer on 04-12-2024 Creatinine [Mass/Vol] Creatinine [Mass/v olume] in Serum or Plasma 0.60-1.20 [facility] Creatinine [Mass/volume] in UrineOrdered By: Seamus Dyer on 04-12-2024 Creatinine (U) [Mass/Vol] Creatinine [Mass/volume] in Urine [facility] Comment on above: No reference range e stablished Creatinine, 24 Hr Urineon Creatinine 24 Hour, Urine 1.31 g/24_hr Normal 0.80-1.89 [facility] Comment on above: Order Comment: URINE COLLECTION TIME (HRS): 24 URINE VOLUME (MILLILTERS): 1800 Performed By: #### B MP, CBC, LIPASE, HEPATIC #### [address] Creatinine, Urine 73.00 mg/dL Normal [facility] Comment on above: Order Comment: URINE COLLECTION TIME (HRS): 24 URINE VOLUME (MILLILTERS): 1800 Result Comment: No r eference range established Performed By: #### B MP, CBC, LIPASE, HEPATIC #### [address] Electrolyteson 04-12-2024 Anion gap [Moles/Vol] 11.9 mmol/L Normal 6.0-15.0 Th e [facility] Comment on above: Performed By: #### B UN, LYTES, CREAT, PTH, CA, URIC #### [facility] [address] Chloride [Moles/Vol] 107 mmol/L Normal 98-107 [facility] Comment on above: Performed By: #### B UN, LYTES, CREAT, PTH, CA, URIC #### [facility] [address] CO2 [Moles/Vol] 27.3 mmol/L Normal 21.0-31.0 The [facility] Comment on above: Performed By: #### B UN, LYTES, CREAT, PTH, CA, URIC #### [facility] [address] Potassium [Moles/Vol] 4.2 mmol/L Normal 3.5-5.1 [facility] Comment on above: Performed By: #### B UN, LYTES, CREAT, PTH, CA, URIC #### [facility] [address] Sodium [Moles/Vol] 142 mmol/L Normal 136-145 [facility] Comment on above: Performed By: #### B UN, LYTES, CREAT, PTH, CA, URIC #### [facility] [address] Magnesium [Mass/time] in 24 hour UrineOrdered By: Seamus Dyer on 04-12-2024 Magnesium (24H U) [Mass/Time] Magnesium [Mass/time] in 24 hour Urine 12.0-293.0 [facility] Comment on above: Performed at: [address] [id number] Director: Zbigniew Deluca PhD, Phone: [phone] Magnesium [Mass/volume] in U rineOrdered By: Seamus Dyer on 04-12-2024 Magnesium (U) [Mass/Vol] Magnesium [Mass/volume] in Urine Not Estab. [facility] Magnesium, Urine 24Hron 12-0 Magnesium, 24Hr Urine 90.0 Normal 12.0-293.0 [facility] Comment on above: Order Comment: TV = 1800ML URINE VOLUME (MILLILTERS): 1800 Result Comment: Perf ormed at: CB - [facility] [address] [id number] Manager Of Merchandising: Zbigniew Deluca PhD, Phone: [phone] Performed By: #### B MP, CBC, LIPASE, HEPATIC #### [facility] [address] Magnesium, Urine 5.0 mg/dL Normal Not Estab. The [facility] Comment on above: Order Comment: TV = 1800ML URINE VOLUME (MILLILTERS): 1800 Performed By: #### B MP, CBC, LIPASE, HEPATIC #### [facility] [address] No Panel InformationOrdered By: Seamus Dyer on 04-12-2024 Intravascular ultrasound (IVUS) of initial vessel Intravascular ultrasound (IVUS) of initial vessel [facility] Urine Citric Acid 465 mg/L Undefined [facility] Comment on above: This test was develo ped and its performance characteristicsdetermined by [facility]. It has not been cleared orapproved by the Food and Drug Administration. Urine Citric Acid 24 Hour 837 mg/24 hr 320-1240 [facility] Comment on above: Performed at: [facility] [address] [id number] Director: Corey Issa MD, Phone: [phone] Estimated GFR (CKD-EPI) > 60.0 mL/Min [facility] Creatinine Clearance (Chem N/A [facility] Oxalate [Mass/time] in 24 ho ur UrineOrdered By: Seamus Dyer on 04-12-2024 Oxalate (24H U) [Mass/Time] Oxalate [Mass/time] in 24 hour Urine [facility] Comment on above: Performed at: [facility] [address] [id number] Director: Corey Issa MD, Phone: [phone] Oxalate [Mass/volume] in Uri neOrdered By: Seamus Dyer on 04-12-2024 Oxalate (U) [Mass/Vol] Oxalate [Mass/vol ume] in Urine Undefined [facility] Oxalate, Quant, 24Hr Urineon 04-12-2024 Oxalates, Urine 17 mg/L Normal Undefined [facility] Comment on above: Order Comment: TV = 1800ML URINE VOLUME (MILLILTERS): 1800 Performed By: #### B MP, CBC, LIPASE, HEPATIC #### [facility] [address] Oxalates, Urine 24Hr 31 Normal 4- [facility] Comment on above: Order Comment: TV = 1800ML URINE VOLUME (MILLILTERS): 1800 Result Comment: Perf ormed at: - [facility] [id number] Manager Of Merchandising: Corey Issa MD, Phone: [phone] Performed By: #### B MP, CBC, LIPASE, HEPATIC #### [address] Parathyrin.intact [Mass/volu me] in Serum or PlasmaOrdered By: Seamus Dyer on 04-12-2024 Parathyrin.intact [Mass/Vol] Parathyrin.intact [Mass/volume] in Serum or Plasma [facility] Parathyroid Hormone Intacton 04-12-2024 Parathyroid Hormone Intact 70.2 pg/mL Normal [facility] Comment on above: Result Comment: PERF ORMED BY: [place] [address] PATHOLOGIST POWER STATION OPERATOR SHANIKA PERRY M.D. Performed By: #### B MP, CBC, LIPASE, HEPATIC #### [address] Phosphate [Mass/time] in 24 hour UrineOrdered By: Seamus Dyer on 04-12-2024 Phosphate (24H U) [Mass/Time] Phosphate [Mass/time] in 24 hour Urine 261-1078 [facility] Phosphate [Mass/volume] in U rineOrdered By: Seamus Dyer on 04-12-2024 Phosphate (U) [Mass/Vol] Phosphate [Mass/volume] in Urine Not Estab. [facility] Phosphorus, 24Hr Urineon Phosphorous, Urine 45.7 mg/dL Normal Not Estab. [facility] Comment on above: Order Comment: TV = 1800ML URINE VOLUME (MILLILTERS): 1800 Performed By: #### B MP, CBC, LIPASE, HEPATIC #### [facility] [address] Phosphorus, Urine 24Hr 823 Normal 261-1078 Th e [facility] Comment on above: Order Comment: TV = 1800ML URINE VOLUME (MILLILTERS): 1800 Performed By: #### B MP, CBC, LIPASE, HEPATIC #### [facility] [address] Potassium [Moles/volume] in Serum or PlasmaOrdered By: Seamus Dyer on 04-12-2024 Potassium [Moles/Vol] Potassium [Moles/v olume] in Serum or Plasma 3.5-5.1 [facility] Serum or plasma anion gap de terminationOrdered By: Seamus Dyer on 04-12-2024 Anion gap [Moles/Vol] Serum or plasma an ion gap determination 6.0-15.0 [facility] Sodium [Moles/volume] in Ser um or PlasmaOrdered By: Seamus Dyer on 04-12-2024 Sodium [Moles/Vol] Sodium [Moles/volume ] in Serum or Plasma 136-145 [facility] Sodium [Moles/volume] in Uri neOrdered By: Seamus Dyer on 04-12-2024 Sodium (U) [Moles/Vol] Sodium [Moles/vol ume] in Urine [facility] Comment on above: No reference range e stablished Sodium, 24 Hr Urineon 2023 Sodium (U) [Moles/Vol] 142.0 mmol/L Normal [facility] Comment on above: Order Comment: URINE COLLECTION TIME (HRS): 24 URINE VOLUME (MILLILTERS): 1800 Result Comment: No r eference range established Performed By: #### B MP, CBC, LIPASE, HEPATIC #### [facility] [address] Sodium 24 Hour Urine 256 High 40-220 [facility] Comment on above: Order Comment: URINE COLLECTION TIME (HRS): 24 URINE VOLUME (MILLILTERS): 1800 Performed By: #### B MP, CBC, LIPASE, HEPATIC #### [facility] [address] [place] [address] Total urine volume measureme ntOrdered By: Seamus Dyer on 04-12-2024 Specimen volume (U) Urine volume measurement [facility] Urate [Mass/volume] in Serum or PlasmaOrdered By: Seamus Dyer on 04-12-2024 Urate [Mass/Vol] Urate [Mass/volume] in Serum or Plasma 2.3-6.6 [facility] Urea nitrogen [Mass/volume] in Serum or PlasmaOrdered By: Seamus Dyer on 04-12-2024 Urea nitrogen [Mass/Vol] Urea nitrogen [Mass/volume] in Serum or Plasma 7-25 [facility] Uric Acidon 04-12-2024 Urate [Mass/Vol] 4.6 mg/dL Normal 2.3-6.6 [facility] Comment on above: Result Comment: PERF ORMED BY: [place] [address] PATHOLOGIST POWER STATION OPERATOR SHANIKA PERRY M.D. Performed By: #### B UN, LYTES, CREAT, PTH, CA, URIC #### [facility] [address] [place] [address] Urine uric acid measurement (mass/volume)Ordered By: Seamus Dyer on 04-12-2024 Urate (U) [Mass/Vol] Urine uric acid measurement (mass/volume) Not Estab. [facility] XR KUBon 04-12-2024 XR KUB [facility] [place] [address] XRay Report Signed Patient: Hank Liu MR#: [id number] 30 : 1970 Acct:[id number] Age/Sex: 53 / F ADM Date: 04/12/24 Loc: XD Room: Type: [facility] Attending Dr: Seamus Dyer MD Copies to: Seamus Dyer MD Ordering Provider: Seamus Dyer MD Date of Service: 04/12/24 XR/XR KUB: N20.0 KUB: COMPARISON: 01/24/2024 CLINICAL DATA: Follow-up kidney stones. Supine view of the abdomen and pelvis was obtained. There is air and stool throughout the colon. There is no dilated small bowel. The kidneys are obscured, greater on the right. No obvious radiopaque renal or ureteral stones are identified. No soft tissue masses are seen. There is levoscoliotic curvature and degenerative change at the spine. XR/XR KUB IMPRESSION: NO OBVIOUS RADIOPAQUE STONES WITHIN LIMITS OF BOWEL GAS AND STOOL. Impression dictated by: Billie Edwards M.D.04/12/2024 5:14 PM Dictation Location: RADIO-PC-25 Transcribed By: SHARMAINE 04/12/241713 Dictated By: Billie Edwards MD 04/12/241711 Signed By: 04/12/241713 Normal [facility] CBC W Auto Differential pane l (Bld)on 04-11-2024 Basophils (Bld) [#/Vol] 0 10*3/uL [facility] Basophils/100 WBC (Bld) 1 % Not Estab. [facility] Eosinophils (Bld) [#/Vol] 0.4 10*3/uL [facility] Eosinophils/100 WBC (Bld) 6 % Not Estab. [facility] Erythrocyte distribution width (RBC) [Ratio] 13.1 % 11.7 - 15.4 % [facility] Hematocrit (Bld) [Volume fraction] 39.9 % 34.0 - 46.6 % [facility] Hemoglobin (Bld) [Mass/Vol] 12.7 g/dL 11.1 - 15.9 g/dL [facility] Immature granulocytes (Bld) [#/Vol] 0 10*3/uL [facility] Immature granulocytes/100 WBC (Bld) 0 % Not Estab. [facility] Lymphocytes (Bld) [#/Vol] 1.7 10*3/uL [facility] Lymphocytes/100 WBC (Bld) 30 % Not Estab. [facility] MCH (RBC) [Entitic mass] 27.5 pg 26.6 - 33.0 pg [facility] MCHC (RBC) [Mass/Vol] 31.8 g/dL 31.5 - 35.7 g/dL [facility] MCV (RBC) [Entitic vol] 86 fL 79 - 97 fL N [facility] Monocytes (Bld) [#/Vol] 0.5 10*3/uL [facility] Monocytes/100 WBC (Bld) 8 % Not Estab. N [facility] Neutrophils (Bld) [#/Vol] 3.2 10*3/uL [facility] Neutrophils/100 WBC (Bld) 55 % [facility] Estab. [facility] Platelets (Bld) [#/Vol] 247 10*3/uL [facility] RBC (Bld) [#/Vol] 4.62 10*6/uL [facility] WBC (Bld) [#/Vol] 5.7 10*3/uL [facility] Comprehensive metabolic pane marjan 04-11-2024 Albumin [Mass/Vol] 4.3 g/dL 3.8 - 4.9 g/dL [facility] ALP [Catalytic activity/Vol] 66 U/L [facility] ALT [Catalytic activity/Vol] 16 U/L [facility] AST [Catalytic activity/Vol] 28 U/L [facility] Bilirubin [Mass/Vol] mg/dL 0.0 - 1 .2 mg/dL [facility] Calcium [Mass/Vol] 9.1 mg/dL 8.7 - 10. 2 mg/dL [facility] Chloride [Moles/Vol] 107 mmol/L High 96 - 10 6 mmol/L [facility] CO2 [Moles/Vol] 26 mmol/L 20 - 29 mmol/L [facility] Creatinine [Mass/Vol] 0.72 mg/dL 0.57 - 1.00 mg/dL [facility] GFR/1.73 sq M.predicted among non-blacks MDRD (S/P/Bld) [Vol rate/Area] 99 mL/min/{1.73_m2} 59 - PINF mL/min/1.7 3 [facility] Globulin (S) [Mass/Vol] 2 g/dL 1.5 - 4.5 g/dL [facility] [facility] Glucose [Mass/Vol] 91 mg/dL 70 - 99 mg/dL [facility] Potassium [Moles/Vol] 4.2 mmol/L 3.5 - 5.2 mmol/L [facility] Protein [Mass/Vol] 6.3 g/dL 6.0 - 8.5 g/dL [facility] Sodium [Moles/Vol] 144 mmol/L 134 - 144 mmol/L [facility] Urea nitrogen [Mass/Vol] 12 mg/dL 6 - 24 mg/dL [facility] Urea nitrogen/Creatinine [Mass ratio] 17 mg/mg 9 - 23 [facility] Lipid 1996 panelon Cholesterol [Mass/Vol] 160 mg/dL 100 - 199 mg/dL [facility] Cholesterol in HDL [Mass/Vol] 56 mg/dL 39 - PINF mg/dL [facility] Cholesterol in LDL [Mass/Vol] 64 mg/dL 0 - 99 mg/dL [facility] Cholesterol in VLDL [Mass/Vol] 40 mg/dL 5 - 40 mg/dL [facility] Triglyceride [Mass/Vol] 255 mg/dL High 0 - 149 mg/dL [facility] No Panel Informationon 04-11 Interpretation and review of laboratory results Abnormal [facility] Performed at: [address] [place] [id number] Manager Of Merchandising: Zbigniew Deluca PhD, Phone: [phone] [facility] Specimen Status Reporton Clindamycin Disk diffusion (KB) [[facility]] Comment [facility] Comment on above: Ambig Abbrev CMP14 D efault Ambig Abbrev CMP14 Default A hand-written panel/profile was received from your office. In accordance with the [facility] Ambiguous Test Code Policy dated November 2002, we have completed your order by using the closest currently or formerly recognized AMA panel. We have assigned Comprehensive Metabolic Panel (14), Test Code #738591 to this request. If this is not the testing you wished to receive on this specimen, please contact the [facility] Client Inquiry/Technical Services Department to clarify the test order. We appreciate your business. Ambig Abbrev LP Default Ambig Abbrev LP Default A hand-written panel/profile was received from your office. In accordance with the [facility] Ambiguous Test Code Policy dated November 2002, we have completed your order by using the closest currently or formerly recognized AMA panel. We have assigned Lipid Panel, Test Code #677434 to this request. If this is not the testing you wished to receive on this specimen, please contact the [facility] Client Inquiry/Technical Services Department to clarify the test order. We appreciate your business. TSHon 04-11-2024 TSH Qn 2.02 m[IU]/L [facility] No Panel InformationOrdered By: Hernando Hylton on 04-06-2024 Quick Strep (POC) [facility] ANES POSTPROC EVALon 024 ANES POSTPROC EVAL HNO ID: [id number] Author: ELOINA MADERA APRN.MANAGER CARDIOVASCULAR Service: ? Author Type: Nurse Support Clerk Type: Anesthesia Postprocedure Evaluation Filed: 03/29/2024 14:02 Note Text: POST ANESTHESIA EVALUATION NOTE : 1970 Procedure Summary Date: 03/29/24 Room / Location: [facility] Endoscopy [facility] Anesthesia Start: 1259 Anesthesia Stop: 1328 Procedures: EGD DIAGNOSTIC COLONOSCOPY DIAGNOSTIC Diagnosis: GI carcinoid tumor Diarrhea, unspecified type Family history of colon cancer (Generalized abdominal pain) (FH of Colon Cancer - 1st degree relative < 60 yrs) (Change in bowel habits) (Epigastric abdominal pain) Scheduled Providers: Naty Booker Jr., DO; Reny Killian RN; Eloina Madera APRN.MANAGER CARDIOVASCULAR Responsible Provider: Eloina Madera APRN.MANAGER CARDIOVASCULAR Anesthesia Type: MAC ASA Status: 3 Anesthesia Type: MAC Last Vitals Vitals Value Taken Time BP 137/85 03/29/24 1340 Temp 03/29/24 1401 Pulse 81 03/29/24 1340 Resp 16 03/29/24 1340 SpO2 97 % 03/29/24 1340 Post Anesthesia Patient Status Patient Evaluation: bedside. Anticipated Disposition: phase 2 then home. Neurological Status: aware and responsive. Pulmonary Status: breathing comfortably on room air Airway Control: returned to baseline unsupported. Cardiovascular Status: stable. Pain Management: clinically adequate Postoperative Hydration: acceptable. Intraoperative Events: no significant anesthesia events Post Operative Nausea/Vomiting Status: no significant post operative nausea or vomiting Recommendation: continue current plan of care. Anesthesia Observations No Documentation SIGNATURE: Eloina Madera APRN.MANAGER CARDIOVASCULAR PATIENT NAME: Hank Liu DATE: March 29, 2024 TIME: 2:01 PM CSN: [id number] Normal [facility] ANES PRE-OPon 03-29-2024 ANES PRE-OP HNO ID: [id number] Author: ELOINA MADERA APRN.MANAGER CARDIOVASCULAR Service: ? Author Type: Nurse Support Clerk Type: Anesthesia Preprocedure Evaluation Filed: 03/29/2024 12:56 Note Text: ANESTHESIOLOGY DAY OF SURGERY NOTE : 1970 Procedure Information Date/Time: 03/29/24 1330 Scheduled providers: Naty Booker Jr., DO; Reny Killian RN; Eloina Madera APRN.MANAGER CARDIOVASCULAR Procedures: EGD DIAGNOSTIC COLONOSCOPY DIAGNOSTIC Location: [facility] Endoscopy [facility] Estimated body mass index is 37.79 kg/m? as calculated from the following: Height as of this encounter: 154.9 cm (5' 1 ). Weight as of this encounter: 90.7 kg (200 lb). Most recent hematocrit and potassium results: Hematocrit 39.2 11/11/2023 Potassium 4.5 11/11/2023 Relevant Problems ANESTHESIA (+) DARNELL (obstructive sleep apnea) (+) PONV (postoperative nausea and vomiting) GI (+) Peptic ulcer disease NEURO-PSYCH (+) History of benign carcinoid tumor of gastrointestinal tract PULMONARY (+) DARNELL (obstructive sleep apnea) I - PHYSICAL EVALUATION AIRWAY Patient intubated: No. Tracheostomy tube not present Mallampati: III. TM distance: >3 FB. Neck ROM: limited extension. Mouth opening: adequate. Short neck: yes. Thick neck: yes Cooper present: no Microretrognathia/Micron agthia/Recessed Chin: No DENTAL Dental findings: teeth intact. Additional exam findings: no II - ANESTHESIA PLAN ASA Score: 3 Anesthetic Plan: MAC The patient is not a current smoker. NPO Status: adequate Beta Tristan Monitoring Plan Monitoring plan: standard ASA. Post Procedure Analgesic Plan Postoperative analgesic plan: per surgical service. Informed Consent Anesthetic risks, benefits, alternatives, personnel and consent discussed: yes. Patient / Responsible Green Party agrees to proceed: yes Patient / Surrogate agrees to blood products: blood products not planned DNR status not reviewed with patient and/or family prior to surgery. Significant changes in the patient condition since the History and Physical, not otherwise documented in primary service progress note: no. Potential Anesthesia issues that may suggest increased risk of complications or contraindication to planned procedure: none. Vitals Value Taken Time BP 138/70 03/29/24 1228 Pulse 81 03/29/24 1228 Resp 16 03/29/24 1228 Temp SpO2 97 % 03/29/24 1228 Outpatient Medications as of 03/29/2024 Medication Sig rosuvastatin (CRESTOR) 40 mg tablet Take 40 mg by mouth daily at bedtime. traZODone (DESYREL) 100 mg tablet Take 100 mg by mouth daily at bedtime. rOPINIRole (REQUIP) 0.25 mg tablet Take 0.5 mg by mouth once daily as needed. Facility-Administered Medications as of 03/29/2024 Medication Dose Route Frequency lidocaine (PF) 10 mg/mL (1 %) 1-2 mg injection (XYLOCAINE) 0.1-0.2 mL INTRADERMAL PRN NaCl 0.9% iv infusion 30 mL/hr INTRAVENOUS CONTINUOUS I have interviewed and examined the patient. I have reviewed the medical record and/or the pre-anesthesia evaluation, pertinent labs, and test results. This contains updated information obtained within 48 hours of Surgery/Procedure. 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 Refer to note in patient chart for documentation of history and physical. Last Colonoscopy: 1 year ago. Referring Physician: Naty Booker Jr, DO (Referring MD) Medicines: Propofol per Anesthesia, Monitored Anesthesia Care Complications: No immediate complications. Requesting Provider: Procedure: Pre-Anesthesia Assessment: - Prior to the procedure, a History and Physical was performed, and patient medications and allergies were reviewed. The patient's tolerance of previous anesthesia was also reviewed. The risks and benefits of the procedure and the sedation options and risks were discussed with the patient. All questions were answered, and informed consent was obtained. Prior Anticoagulants: The patient has taken no anticoagulant or antiplatelet agents. ASA Grade Assessment: III - A patient with severe systemic disease. After reviewing the risks and benefits, the patient was deemed in satisfactory condition to undergo the procedure. After I obtained informed consent, the scope was passed under direct vision. Throughout the procedure, the patient's blood pressure, pulse, and oxygen saturations were monitored continuously. The Colonoscope was introduced through the anus and advanced to the terminal ileum, with identification of the appendiceal orifice and IC valve. The colonoscopy was performed without difficulty. The patient tolerated the procedure well. The quality of the bowel preparation was excellent. The entire colon was well visualized. The terminal ileum, ileocecal valve, appendiceal orifice, and rectum were photographed. Scope Withdrawal Time: 0 hours 6 minutes 27 seconds Total Procedure Duration: 0 hours 9 minutes 18 seconds Findings: The digital rectal exam was normal. The terminal ileum appeared normal. A diminutive (1-3 mm) polyp was found in the cecum. The polyp was sessile. The polyp was removed with a jumbo cold forceps. Resection and retrieval were complete. A few small-mouthed diverticula were found in the sigmoid colon. No additional abnormalities were found on retroflexion. Normal mucosa was found in the entire colon. Biopsies for histology were taken with a cold forceps for evaluation of microscopic colitis. Moderate Sedation: MAC anesthesia was administered by the anesthesia team. Impression: - The examined portion of the ileum was normal. - One diminutive (1-3 mm) polyp in the cecum, removed with a jumbo cold forceps. Resected and retrieved. - Diverticulosis in the sigmoid colon. - Normal mucosa in the entire examined colon. Biopsied. Recommendation: - Discharge patient to home. - Resume regular diet. - Continue present medications. - Await pathology results. - Repeat colonoscopy in 3 years for surveillance. - Start Senokot S two tabs at bedtime for constipation. - Start Levbid twice daily for abd cramping. - Patient has a contact number available for emergencies. The signs and symptoms of potential delayed complications were discussed with the patient. Return to normal activities tomorrow. Written discharge instructions were provided to the patient. Procedure Code(s): --- Professional --- 39729, Colonoscopy, flexible; with biopsy, single or multiple Diagnosis Code(s): --- Professional --- D12.0, Benign neoplasm of cecum R10.84, Generalized abdominal pain Z80.0, Family history of malignant neoplasm of digestive organs R19.4, Change in bowel habit K57.30, Diverticulosis of large intestine without perforation or abscess without bleeding CPT copyright 2020 [employer]. All rights reserved. The codes documented in this report are preliminary and upon clearance cutter review may be revised to meet current compliance requirements. Attending Participation: I personally performed the entire procedure. 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 Refer to note in patient chart for documentation of history and physical. Last Colonoscopy: 1 year ago. Referring Physician: Naty Booker Jr, DO (Referring MD) Medicines: Propofol per Anesthesia, Monitored Anesthesia Care Complications: No immediate complications. Requesting Provider: Procedure: Pre-Anesthesia Assessment: - Prior to the procedure, a History and Physical was performed, and patient medications and allergies were reviewed. The patient's tolerance of previous anesthesia was also reviewed. The risks and benefits of the procedure and the sedation options and risks were discussed with the patient. All questions were answered, and informed consent was obtained. Prior Anticoagulants: The patient has taken no anticoagulant or antiplatelet agents. ASA Grade Assessment: III - A patient with severe systemic disease. After reviewing the risks and benefits, the patient was deemed in satisfactory condition to undergo the procedure. After I obtained informed consent, the scope was passed under direct vision. Throughout the procedure, the patient's blood pressure, pulse, and oxygen saturations were monitored continuously. The Colonoscope was introduced through the anus and advanced to the terminal ileum, with identification of the appendiceal orifice and IC valve. The colonoscopy was performed without difficulty. The patient tolerated the procedure well. The quality of the bowel preparation was excellent. The entire colon was well visualized. The terminal ileum, ileocecal valve, appendiceal orifice, and rectum were photographed. Scope Withdrawal Time: 0 hours 6 minutes 27 seconds Total Procedure Duration: 0 hours 9 minutes 18 seconds Findings: The digital rectal exam was normal. The terminal ileum appeared normal. A diminutive (1-3 mm) polyp was found in the cecum. The polyp was sessile. The polyp was removed with a jumbo cold forceps. Resection and retrieval were complete. A few small-mouthed diverticula were found in the sigmoid colon. No additional abnormalities were found on retroflexion. Normal mucosa was found in the entire colon. Biopsies for histology were taken with a cold forceps for evaluation of microscopic colitis. Moderate Sedation: MAC anesthesia was administered by the anesthesia team. Impression: - The examined portion of the ileum was normal. - One diminutive (1-3 mm) polyp in the cecum, removed with a jumbo cold forceps. Resected and retrieved. - Diverticulosis in the sigmoid colon. - Normal mucosa in the entire examined colon. Biopsied. Recommendation: - Discharge patient to home. - Resume regular diet. - Continue present medications. - Await pathology results. - Repeat colonoscopy in 3 years for surveillance. - Start Senokot S two tabs at bedtime for constipation. - Start Levbid twice daily for abd cramping. - Patient has a contact number available for emergencies. The signs and symptoms of potential delayed complications were discussed with the patient. Return to normal activities tomorrow. Written discharge instructions were provided to the patient. Procedure Code(s): --- Professional --- 23180, Colonoscopy, flexible; with biopsy, single (more content not included)... PROVATION [facility] Radiology Study observation (narrative) [facility] Flexible sigmoidoscopy study on 03-29-2024 [facility] Gastrointestinal Endoscopy Patient Name: Hank Liu Procedure Date: 03/29/2024 12:46 PM Date of : 1970 Admit Type: Outpatient Age: 53 Gender: Female Note Status: Finalized Attending MD: Naty Booker Jr, DO, [id number] Procedure: Upper GI endoscopy Indications: Epigastric abdominal pain, Indigestion, Esophageal reflux, Follow-up of tumor of the GI tract (carcinoid) Providers: Naty Booker Jr, DO Patient Profile: This is a 53 year old female. Refer to note in patient chart for documentation of history and physical. Referring Physician: Naty Booker Jr, DO (Referring MD) Medicines: Propofol per Anesthesia, Monitored Anesthesia Care Complications: No immediate complications. Requesting Provider: Procedure: Pre-Anesthesia Assessment: - Prior to the procedure, a History and Physical was performed, and patient medications and allergies were reviewed. The patient's tolerance of previous anesthesia was also reviewed. The risks and benefits of the procedure and the sedation options and risks were discussed with the patient. All questions were answered, and informed consent was obtained. Prior Anticoagulants: The patient has taken no anticoagulant or antiplatelet agents. ASA Grade Assessment: III - A patient with severe systemic disease. After reviewing the risks and benefits, the patient was deemed in satisfactory condition to undergo the procedure. After obtaining informed consent, the endoscope was passed under direct vision. Throughout the procedure, the patient's blood pressure, pulse, and oxygen saturations were monitored continuously. The Endoscope was introduced through the mouth, and advanced to the second part of duodenum. The upper GI endoscopy was accomplished without difficulty. The patient tolerated the procedure well. Total Procedure Duration: 0 hours 3 minutes 50 seconds Findings: LA Grade A (one or more mucosal breaks less than 5 mm, not extending between tops of 2 mucosal folds) esophagitis with no bleeding was found 35 cm from the incisors. Biopsies were taken with a cold forceps for histology. Localized minimal inflammation characterized by congestion (edema) was found in the gastric antrum. Biopsies were taken with a cold forceps for histology. The cardia and gastric fundus were normal on retroflexion. The examined duodenum was normal. Moderate Sedation: MAC anesthesia was administered by the anesthesia team. Impression: - LA Grade A reflux esophagitis with no bleeding. Biopsied. - Gastritis, characterized by congestion (edema). Biopsied. - Normal examined duodenum. Recommendation: - Discharge patient to home. - Resume regular diet. - Continue present medications. - Await pathology results. - May consider PPI therapy or Carafate pending pathology. Procedure Code(s): --- Professional --- 68154, Esophagogastroduodenosco py, flexible, transoral; with biopsy, single or multiple Diagnosis Code(s): --- Professional --- K21.00, Gastro-esophageal reflux disease with esophagitis, without bleeding K29.70, Gastritis, unspecified, without bleeding R10.13, Epigastric pain K30, Functional dyspepsia D49.0, Neoplasm of unspecified behavior of digestive system Z85.028, Personal history of other malignant neoplasm of stomach CPT copyright 2020 [employer]. All rights reserved. The codes documented in this report are preliminary and upon clearance cutter review may be revised to meet current compliance requirements. Attending Participation: I personally performed the entire procedure. MD Naty Joaquin Jr, DO 03/29/2024 1:13:16 PM This report has been signed electronically by Naty Booker Jr, DO Number of Addenda: 0 Note Initiated On: 03/29/2024 12:46 PM (more content not included)... PROVATION [facility] Radiology Study observation (narrative) [facility] HISTORY PHYSICALon HISTORY PHYSICAL HNO ID: [id number] Author: NATY BOOKER JR, DO Service: Gastroenterology Author Type: Physician Type: H&P Filed: 03/29/2024 12:46 Note Text: HISTORY AND PHYSICAL EXAMINATION SERVICE DATE: 03/29/2024 SERVICE TIME: 12:44 PM Chief Complaint: abd pain HPI:This is a 53 year old female with history of carcinoid of the stomach / duodenum, peptic ulcer disease, exocrine pancreatic insufficiency presenting with generalized bloating and abd pain and diarrhea. Food makes symptoms worse. She remains on Nexium, Creon, and Bentyl. Failed Carafate, Levbid. EGD and colonoscopy done one year ago. Family history of colon cancer (mother). TSH, gastrin, urine studies for 5-HIAA, and celiac were negative. PAST MEDICAL HISTORY Diagnosis Date Arthritis Carcinoid tumor of stomach Gall stones GERD (gastroesophageal reflux disease) Hemorrhoids Hyperlipidemia Stomach ulcer UTI (urinary tract infection) PAST SURGICAL HISTORY Procedure Laterality Date ANESTH, SECTION CHOLECYSTECTOMY COLONOSCOPY 03/22/2016 EGD HYSTERECTOMY HX told she still has cervix, was for bleeding LAP REMOVE/REV MESH BLADDER WALL PAST SURGICAL HISTORY OF 04/2019 breast reconstruction SLEEVE RESECTION STOMACH FAMILY HISTORY Problem Relation Age of Onset Diabetes Mother Colon Cancer Mother 55 detected on autopsy Aneurysm Mother 55 aortic Heart disease Father Hyperlipidemia Father Stroke Father Cancer Brother 48 kidney Cancer Brother spinal cord Social History Tobacco Use Smoking status: Former Current packs/day: 0.00 Types: Cigarettes Quit date: 05/2022 Years since quittin.8 Passive exposure: Current Smokeless tobacco: Never Vaping Use Vaping status: Never Used Substance Use Topics Alcohol use: Not Currently Drug use: No (Not in a hospital admission) ALLERGIES Allergen Reactions Iodine Hives, Anaphylaxis, Shortness of Breath Other reaction(s): anaphylaxis Other reaction(s): Unknown Atorvastatin Other: See Comments Other Reaction(s): arthralgia/myalgia Bupropion Other: See Comments Other Reaction(s): Other: See Comments Iodinated Contrast * Hives, Other: See Comments, Shortness of Breath Other reaction(s): Difficulty Breathing Other Reaction(s): Difficulty Breathing, Other: See Comments Other reaction(s): Difficulty Breathing Mirtazapine Hives, Other: See Comments Nalbuphine Shortness of Breath, Other: See Comments, Myalgia Other Reaction(s): muscle spams, and breathing, Unknown Nubain [Nalbuphine * Unknown COMPLETE REVIEW OF SYSTEMS: GENERAL: No weight loss, malaise or fevers RESPIRATORY: Negative for cough, hemoptysis, wheezing, COPD, dyspnea or shortness of breath CARDIOVASCULAR: Negative for chest pain, leg swelling, hypertension, CHF or palpitations GI: Positive for abdominal discomfort , diarrhea BP 138/70 Pulse 81 Resp 16 Ht 5' 1 (1.55m) Wt 200 lb (90.7kg) SpO2 97% BMI 37.81 kg/(m2). O2 Therapy: Room Air PHYSICAL EXAM: Physical Exam Performed: GENERAL: Alert, no distress, cooperative LUNGS: Lungs clear to auscultation, Good diaphragmatic excursion CARDIAC: Normal S1 and S2; no rubs, murmurs, or gallops ABDOMEN: Abdomen soft, non-tender, BS normal, No masses or organomegaly EXTREMITIES: Extremities normal, no deformities, edema, clubbing or skin discoloration. Good capillary refill., No ulcers (D3A.098) GI carcinoid tumor Plan: EGD DIAGNOSTIC, EGD DIAGNOSTIC (R19.7) Diarrhea, unspecified type Plan: COLONOSCOPY DIAGNOSTIC, COLONOSCOPY DIAGNOSTIC (Z80.0) Family history of colon cancer Plan: COLONOSCOPY DIAGNOSTIC, COLONOSCOPY DIAGNOSTIC SIGNATURE: Naty Booker Jr., DO PATIENT NAME: Hank Liu DATE: March 29, 2024 TIME: 12:44 PM PAGER/CONTACT #: Normal [facility] NURSING PROGon 03-29-2024 NURSING PROG HNO ID: [id number] Author: ANDRA APONTE, RN Service: Nursing Author Type: Registered Nurse Type: Nursing Progress Note Filed: 03/29/2024 12:30 Note Text: PRE OP LEARNING ASSESSMENT PROCEDURE/SURGERY: GI PROCEDURES: Colonoscopy and EGD READINESS TO LEARN COGNITIVE ABILITY: Alert and oriented MOTIVATION TO LEARN: Interested FAMILY SUPPORT: High - Very involved in pt care PATIENT LEARNS BEST BY: Written Instruction - Hand-outs Verbal Instruction FACTORS AFFECTING LEARNING: None PHYSICAL LIMITATIONS AFFECTING LEARNING: None Electronically Signed By: Andra Aponte, KRISTI In Department: [facility] [facility] SURGICAL PATHOLOGYon CASE REPORT [facility] Comment on above: Order Comment: Speci men Type: TISSUE SPECIMENOrdering Facility: [facility] Address: [address] [place] [address] Result Comment: [facility] Pathology Report Case: [id number] Authorizing Provider: Naty Booker Jr., DO Collected: 03/29/2024 01:06 PM Ordering Location: [facility] Endoscopy Received: 03/29/2024 09:59 PM [facility] Pathologist: Darvin Vizcaino MD Specimens: A) - Stomach, Biopsy, gastritis, h/o carcinoid B) - Esophagus, Biopsy, esophagitis C) - Colon, Cecum, Polyp D) - Colon, Biopsy, random colon biopsies r/o microscopic colitis. Performed By: #### S ####[facility] LABCLIA [id number] [place] [address] [place] FINAL DIAGNOSIS [facility] Comment on above: Order Comment: Speci men Type: TISSUE SPECIMENOrdering Facility: [facility] Address: [address] [place] [address] Result Comment: A. S tomach, biopsy: -Antral and oxyntic mucosa with no diagnostic alteration -No morphologic evidence of Helicobacter pylori B. Esophagus, biopsy: -Squamo-gastric junctional mucosa with reactive epithelial changes -Negative for intestinal metaplasia C. Cecum, polypectomy: -Tubular adenoma D. Random colon, biopsy: -Colonic mucosa with no diagnostic alteration -No evidence of microscopic colitis Performed By: #### S ####[facility] LABCLIA [id number] [place] [address] [place] FINAL PERFORMING LAB Normal [facility] Comment on above: Order Comment: Speci men Type: TISSUE SPECIMENOrdering Facility: [facility] Address: [address] [place] [address] Result Comment: Diag nostic interpretation performed at [facility], [address] [place] [address] CLIA# [id number] Roofing Technician: Ivan Jefferson M.D. Performed By: #### S ####[facility] LABCLIA [id number] [address] [place] GROSS DESCRIPTION Normal [facility] Comment on above: Order Comment: Speci men Type: TISSUE SPECIMENOrdering Facility: [facility] Address: [address] [place] [address] Result Comment: Ab. S tomach, Biopsy Received in formalin is one piece of manning-brown, soft tissue measuring 0.7 x 0.3 x 0.2 cm. Totally submitted in one cassette. B. Esophagus, Biopsy Received in formalin is one piece of manning, soft tissue measuring 0.4 x 0.3 x 0.2 cm. Totally submitted in one cassette. C. Colon, Cecum, Polyp Received in formalin is one piece of manning, soft tissue measuring 0.3 x 0.2 x 0.3 cm. Totally submitted in one cassette. D. Colon, Biopsy Received in formalin is one piece of manning-brown, soft tissue measuring 0.5 x 0.3 x 0.2 cm. Totally submitted in one cassette. DL March 29, 2024 11:14 PM Gross examination performed at [facility], [address] [place] [address] Performed By: #### S ####[facility] LABCLIA [id number] [id number] [id number] [facility] Upper GI endoscopyon 024 Upper GI endoscopy [facility] Gastrointestinal Endoscopy Patient Name: Hank Liu Procedure Date: 03/29/2024 12:46 PM Date of : 1970 Admit Type: Outpatient Age: 53 Gender: Female Note Status: Finalized Attending MD: Naty Booker Jr, DO, [id number] Procedure: Upper GI endoscopy Indications: Epigastric abdominal pain, Indigestion, Esophageal reflux, Follow-up of tumor of the GI tract (carcinoid) Providers: Naty Booker Jr, DO Patient Profile: This is a 53 year old female. Refer to note in patient chart for documentation of history and physical. Referring Physician: Naty Booker Jr, DO (Referring MD) Medicines: Propofol per Anesthesia, Monitored Anesthesia Care Complications: No immediate complications. Requesting Provider: Procedure: Pre-Anesthesia Assessment: - Prior to the procedure, a History and Physical was performed, and patient medications and allergies were reviewed. The patient's tolerance of previous anesthesia was also reviewed. The risks and benefits of the procedure and the sedation options and risks were discussed with the patient. All questions were answered, and informed consent was obtained. Prior Anticoagulants: The patient has taken no anticoagulant or antiplatelet agents. ASA Grade Assessment: III - A patient with severe systemic disease. After reviewing the risks and benefits, the patient was deemed in satisfactory condition to undergo the procedure. After obtaining informed consent, the endoscope was passed under direct vision. Throughout the procedure, the patient's blood pressure, pulse, and oxygen saturations were monitored continuously. The Endoscope was introduced through the mouth, and advanced to the second part of duodenum. The upper GI endoscopy was accomplished without difficulty. The patient tolerated the procedure well. Total Procedure Duration: 0 hours 3 minutes 50 seconds Findings: LA Grade A (one or more mucosal breaks less than 5 mm, not extending between tops of 2 mucosal folds) esophagitis with no bleeding was found 35 cm from the incisors. Biopsies were taken with a cold forceps for histology. Localized minimal inflammation characterized by congestion (edema) was found in the gastric antrum. Biopsies were taken with a cold forceps for histology. The cardia and gastric fundus were normal on retroflexion. The examined duodenum was normal. Moderate Sedation: MAC anesthesia was administered by the anesthesia team. Impression: - LA Grade A reflux esophagitis with no bleeding. Biopsied. - Gastritis, characterized by congestion (edema). Biopsied. - Normal examined duodenum. Recommendation: - Discharge patient to home. - Resume regular diet. - Continue present medications. - Await pathology results. - May consider PPI therapy or Carafate pending pathology. Procedure Code(s): --- Professional --- 74319, Esophagogastroduodenosco py, flexible, transoral; with biopsy, single or multiple Diagnosis Code(s): --- Professional --- K21.00, Gastro-esophageal reflux disease with esophagitis, without bleeding K29.70, Gastritis, unspecified, without bleeding R10.13, Epigastric pain K30, Functional dyspepsia D49.0, Neoplasm of unspecified behavior of digestive system Z85.028, Personal history of other malignant neoplasm of stomach CPT copyright 2020 [employer]. All rights reserved. The codes documented in this report are preliminary and upon clearance cutter review may be revised to meet current compliance requirements. Attending Participation: I personally performed the entire procedure. MD Naty Joaquin Jr, DO 03/29/2024 1:13:16 PM This report has been signed electronically by Naty Booker Jr, DO Number of Addenda: 0 Note Initiated On: 03/29/2024 12:46 PM Procedure Start: 1:04:34 PM Procedure End: 1:08:24 PM [facility] 03-28-2024 [facility] Telephone ([facility]) -------- HANK LIU ([id number]) 1970 F Date Time Provider Department 03/28/24 NATY BOOKER JR During your visit today, we recorded the following information about you: Lesa Conley, RN 03/28/2024 10:32 AM Signed Patient is calling today requesting an earlier appointment for her procedure tomorrow with Dr. Booker if possible. She is scheduled for 1:30 pm. She starts her prep today at 5 pm and reports that she is already not feeling well with only having liquids. Encouraged patient to try jello, broths, gatorade, gingerale. Heather Bey RN 03/28/2024 12:27 PM Signed Tosin and Dr. Booker, please see attached message. Any chance pt can be scheduled earlier for procedure? Please advise. Heather Lemus RN, RN 03/28/2024 1:39 PM Addendum 03/29/24 I informed Nurses as to the message below. Thanks, Rajesh Ok to move her up or If she shows up in the morning, I will try to work her in. Naty Booker Jr., DO Please see Dr. Booker response to pt wanting to be moved to earlier slot for tomorrow. Please call pt. Thank you. Heather Bey RN Allergies As of Date: 03/28/2024 Noted Allergy Reaction IODINE 04/18/2017 4 - Hives 10 - Anaphylaxis 12 - Shortness of Breath Comments: Other reaction(s): anaphylaxis Other reaction(s): Unknown ATORVASTATIN 05/25/2021 14 - Other: See Comments Comments: Other Reaction(s): arthralgia/myalgia BUPROPION 05/10/2023 14 - Other: See Comments Comments: Other Reaction(s): Other: See Comments IODINATED CONTRAST MEDIA 11/29/2018 - Hives 14 - Other: See Comments 12 - Shortness of Breath Comments: Other reaction(s): Difficulty Breathing Other Reaction(s): Difficulty Breathing, Other: See Comments Other reaction(s): Difficulty Breathing MIRTAZAPINE 05/25/2021 - Hives 14 - Other: See Comments NALBUPHINE 04/18/2017 12 - Shortness of Breath 14 - Other: See Comments 17 - Myalgia Comments: Other Reaction(s): muscle spams, and breathing, Unknown NUBAIN (NALBUPHINE HCL) 04/18/2017 16 - Unknown Date Reviewed: 03/20/2024 Reviewed by: Sol Nuñez APRN.PHLEBOTOMY SERVICES TECHNICIAN - Fully Assessed Reason for Visit: Patient Question [0787] Prescriptions as of 03/29/2024 - rosuvastatin (CRESTOR) 40 mg tablet Take 40 mg by mouth daily at bedtime. - traZODone (DESYREL) 100 mg tablet Take 100 mg by mouth daily at bedtime. - rOPINIRole (REQUIP) 0.25 mg tablet Take 0.5 mg by mouth once daily as needed. Problem List As Of Date 03/28/2024 Noted Resolved Carcinoid tumor of stomach [D3A.092] 02/25/2022 Gastroenteritis [K52.9] 02/23/2022 Generalized abdominal pain [R10.84] 02/23/2022 07/30/2022 Obesity (BMI 35.0-39.9 without comorbidity) [E6*02/25/2022 PONV (postoperative nausea and vomiting) [R11.2*02/25/2022 DARNELL (obstructive sleep apnea) [G47.33] 02/25/2022 History of benign carcinoid tumor of gastrointe*03/12/2022 Peptic ulcer disease [K27.9] 03/12/2022 Severe recurrent major depression without psych*09/25/2022 Family history of colon cancer in mother [Z80.0]12/29/2022 Malignant carcinoid tumor of duodenum (HCC) [C7*03/14/2023 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 Comparison: Cervical spine radiographs March 08, 2024 Findings: Craniocervical junction is within normal limits. No cervical cord signal abnormality is identified. No aggressive bone marrow signal abnormality. Minimal retrolisthesis of C2 on C3 and minimal anterolisthesis of C3 on C4. Minimal retrolisthesis of C5 on C6. Disc desiccation throughout the cervical spine. Mild intervertebral disc height loss at C4-5 and moderate intervertebral disc height loss at C5-6 and C6-7. Degenerative endplate changes at C6-C7. Degenerative plate spurring at C5-6 and C6-7. Tiny multilevel bilateral perineural cysts measure up to 5 mm. C2-C3: No significant disc bulge. Mild facet arthropathy. No neural foraminal or spinal canal stenosis. C3-C4: No significant disc bulge. Mild right and moderate left facet arthropathy. Moderate left neural foraminal stenosis. No spinal canal stenosis. C4-C5: Small disc bulge. Mild uncovertebral hypertrophy and facet arthropathy. Mild left neural foraminal stenosis. No spinal canal stenosis. C5-C6: Small disc bulge. Mild uncovertebral hypertrophy. Mild facet arthropathy. Mild bilateral neural foraminal stenosis. Mild spinal canal stenosis. C6-C7: Small disc bulge. Mild uncovertebral hypertrophy. Mild right and moderate left neural foraminal stenosis. Mild spinal canal stenosis. C7-T1: No significant disc bulge, spinal canal or neuroforaminal stenosis. Visualized paravertebral soft tissues are grossly unremarkable. IMPRESSION: Degenerative changes of the cervical spine as detailed. ELECTRONICALLY SIGNED BY: Ezequiel Trevino, DO Normal Not Available [facility]ULT [place] [facility] 03-20-2024 I have reviewed, verified, and confirmed the results of anorectal manometry, rectal sensation, tone and compliance testing and EMG testing. I agree with the impression as written above. Jason Osorio MD Pelvic Floor Colon & Rectal Surgery [facility] Reason for testing: constipation and diarrhea Ileoanal pouch: No Anorectal Manometry Testing: Strength: Anorectal manometry was performed. Average Pressure Interpretation Rest: 60.4 mmHg This is above normal range. Normal range is 35-50 mmHg. Squeeze: 92.3 mmHg This is within normal range. Normal range is 75 - 100 mmHg. There is minimal incremental change between resting and squeeze pressures which can indicate marginal pelvic floor movement with squeeze. Sensory: Sensation Volume First sensation : 55 mL / Normal Range: 40-80 mL First urge to defecate: 65 mL / Normal Range: 80-120 mL Maximum tolerable volume: 90 mL / Normal Range: 120-180 mL Recto-anal inhibitory reflex: Yes Balloon expulsion: No This exhibit hyperacute rectal sensation with at least 2/3 sensory tests. A recto-anal inhibitory reflex (RAIR) was present. This is a normal reflex. EMG Recruitment: EMG recruitment was performed. The patient shows a normal increase in activity with squeeze, and a no change in activity with valsalva. This indicates abnormal pelvic floor movement, which can be indicative of poor pelvic floor coordination secondary to pelvic floor non-relaxation / dyssynergia. See pelvic floor consultation note for interpretation of test results and treatment plan. Sol Nuñez APRN.DANISHA [facility] ANORECTAL MANOMET RYOrdered By: Jason Osorio on 03-20-2024 [facility] Work Phone: Radiology Study observation (narrative) [facility] Work Phone: CNOVon 03-20-2024 CNOV Office Visit ([facility] ) -------- HANK LIU ([id number]) 1970 F Date Time Provider Department 03/20/24 9:30 AM SOL NUÑEZ [facility] During your visit today, we recorded the following information about you: Sol Nuñez APRN.CNP 03/20/2024 10:39 AM Signed PELVIC FLOOR COLON AND RECTAL SURGERY Reason for visit: Review anorectal manometry and EMG results History of Present Illness: Hank Liu is a 53 year old FEMALE who was seen at the request of Dr. Carbajal for anorectal manometry testing, rectal sensation testing and EMG recruitment. Mrs. Liu was referred for testing due to symptoms of abdominal bloating and alternating constipation and diarrhea. Duration of symptoms: GI issues her whole life. Abdominal bloating has been worse over the past 3 to 4 years. Do you have anorectal pain: No Stool frequency: 1/day, occasionally 2 bowel movements per day stool type: Ranges in consistency from watery to formed/solid Stool straining: mild straining with harder stools. Patient reports occasionally having to digitize into anus to evacuate stool Frequency of straining: sometimes Does anything make your symptoms better? Colace and magnesium citrate will help with constipation. Typically will take 1-2 times every other month. Patient denies feeling constipated although she reports abdominal bloating and pressure under her rib cage. She can go up to 2 to 3 days without a bowel movement. She reports sensation in her rectum when she feels the urge to have a bowel movement. She denies taking any medications or supplements on a daily basis to help with stool consistency. Reports drinking adequate amounts of water. Has trialed FODMAP diet with no significant improvement in symptoms. Prior hysterectomy: Yes, patient reports many years ago. Was done transabdominal. 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 Abdominal wall reconstruction following failed liposuction procedure. Cholecystectomy Reports having umbilical hernia however is not interested in repair at this time Urinary Symptoms: Urinary incontinence: none Urinary frequency: No History of bladder sling urinary incontinence which has improved Obstetric history: 4 Para 2 Vaginal delivery: 1 vaginal births and 1 c-sections. - Episiotomy: No - Tear: No - Forceps No Previous Testing Results include: Colonoscopy: Yes Date: December 2022. Diverticulosis and hemorrhoids. Advised to follow-up in 5 years however is scheduled next week with her GI provider due to ongoing abdominal pain and bloating. KUB: December noting moderate stool burden Manometry: today Defecography: No PAST MEDICAL HISTORY Diagnosis Date Arthritis Carcinoid tumor of stomach Gall stones GERD (gastroesophageal reflux disease) Hemorrhoids Hyperlipidemia Stomach ulcer UTI (urinary tract infection) PAST SURGICAL HISTORY Procedure Laterality Date ANESTH, SECTION CHOLECYSTECTOMY COLONOSCOPY 03/22/2016 EGD HYSTERECTOMY HX told she still has cervix, was for bleeding LAP REMOVE/REV MESH BLADDER WALL PAST SURGICAL HISTORY OF 04/2019 breast reconstruction SLEEVE RESECTION STOMACH Current Outpatient Medications Medication Sig Dispense Refill rosuvastatin (CRESTOR) 40 mg tablet Take 40 mg by mouth daily at bedtime. traZODone (DESYREL) 100 mg tablet Take 100 mg by mouth daily at bedtime. rOPINIRole (REQUIP) 0.25 mg tablet Take 0.5 mg by mouth once daily as needed. No current facility-administered medications for this visit. ALLERGIES Allergen Reactions Iodine Hives, Anaphylaxis, Shortness of Breath Other reaction(s): anaphylaxis Other reaction(s): Unknown Atorvastatin Other: See Comments Other Reaction(s): arthralgia/myalgia Bupropion Other: See Comments Other Reaction(s): Other: See Comments Iodinated Contrast * Hives, Other: See Comments, Shortness of Breath Other reaction(s): Difficulty Breathing Other Reaction(s): Difficulty Breathing, Other: See Comments Other reaction(s): Difficulty Breathing Mirtazapine Hives, Other: See Comments Nalbuphine Shortness of Breath, Other: See Comments, Myalgia Other Reaction(s): muscle spams, and breathing, Unknown Nubain [Nalbuphine * Unknown FAMILY HISTORY Problem Relation Age of Onset Diabetes Mother Colon Cancer Mother 55 detected on autopsy Aneurysm Mother 55 aortic Heart disease Father Hyperlipidemia Father Stroke Father Cancer Brother 48 kidney Cancer Brother spinal cord Social History Tobacco Use Smoking status: Former Current packs/day: 0.00 Types: Cigarettes Quit date: 05/2022 Years since quittin.8 Passive exposure: Current Smokeless tobacco: Never Vaping Use Vaping status: Never Used Substance Use Topics Alcohol use: Not Currently Drug use: No Physical Exam: There w (more content not included)... Normal [facility] 03-16-[address] [facility] Telephone ([facility]) -------- HANK LIU ([id number]) 1970 F Date Time Provider Department 03/16/24 NATY BOOKER JR [facility] During your visit today, we recorded the following information about you: Heather Quick 03/16/2024 9:34 AM Signed Hank is calling Naty Booker Jr., DO today saying her last colonoscopy was 12/29/22 and she is asking that an order be placed because she would like to schedule another colonoscopy in about 6 months from now. Please advise. Patient has been identified by name and birthdate. Duration of symptoms: N/A Person calling: self Call patient at: at home [phone] (home) [phone] (cell) Was an appointment scheduled: No Closing statement: Results or non-symptom based questions: Thank you for calling [facility], your call will be returned within the next business day. Heather Pratt RN 03/16/2024 2:28 PM Signed Please check with patient as she may want an EGD as well as the colonoscopy for abd pain, diarrhea, history of gastric carcinoid, and family history of colon cancer (mother). Naty Booker Jr. DO LVM for pt to determine if interested in having EGD also. Dr. Booker, please review and sign orders for both. Please route back for scheduling purposes. Thank you Naty Bai RN, Jr., DO 03/16/2024 4:30 PM Signed COLONOSCOPY BOWEL PREPARATION INSTRUCTIONS MiraLAX? Your doctor has scheduled you for a colonoscopy. To have a successful colonoscopy, you must have a clean colon, that is empty. A clean colon allows your doctor to see the entire colon AND diagnose issues like polyps or cancer. For doctors, a clean colon is like driving on a yani day; a dirty colon like driving in a storm. It is very important that you follow these instructions exactly, or your colonoscopy may not be as effective, could be canceled, and you may need to do the bowel prep and colonoscopy again. TRANSPORTATION REQUIREMENTS You are receiving IV sedation. For your safety, a responsible adult escort must accompany you to and from your procedure: Your adult escort MUST be present with you at check-in for your colonoscopy. Your adult escort MUST remain in the endoscopy area until you are discharged. Your adult escort MUST transport you home once you are discharged. You are NOT allowed to operate any form of transportation (i.e. drive a car, bicycle, etc) or leave the Endoscopy Center ALONE. It is not safe to do so. If you cannot meet these requirements, your procedure will be canceled. MEDICATION REQUIREMENTS For your safety, certain medications will need to be stopped or adjusted before you can have your procedure: BLOOD THINNERS: If you take blood thinners, such as Coumadin (warfarin), Plavix (clopidogrel), Ticlid (ticlopidine hydrochloride), Agrylin (anagrelide), Xarelto (Rivaroxaban), Pradaxa (Dabigatran), Eliquis (Apixaban), or Effient (Prasugrel), contact the physician who is prescribing these medications at least 2 weeks prior to your procedure to discuss any necessary adjustments. DIABETES: If you take medications for diabetes, your dosage may need to be adjusted. If you are being treated for diabetes with insulin, diabetic pills, or other injectable medications do not take your REGULAR dose after midnight on the day of your procedure. If you are taking any other types of insulin such as Lantus, Humalog, NPH (long-acting insulin), or 70/30 insulin, take half your normal dose the day before your procedure. DIABETES/WEIGHT MANAGEMENT: If you take medications for weight-loss, your dosage may need to be adjusted Contact the doctor who prescribes this medication for further instructions. If you take medications for weight-loss like semaglutide (Ozempic, Wegovy, Rybelsus), dulaglutide (Trulicity), liraglutide (Victoza, Saxenda), exenatide (Byetta, Bydureon), or lixisenatide (Adylyxin), stop your medication 1 week prior to your procedure. If you take medications like canagliflozin (Invokana), dapagliflozin (Farxiga, Forxiga), empagliflozin (Jardiance), stop your medication 3 days prior to your procedure. If you take ertugliflozin (Steglatro) stop your medication 4 days prior to your procedure. IRON: If you take iron pills, STOP them 1 week BEFORE your procedure, may resume after. OTHER MEDS: May take all other medications (including aspirin, antibiotics, water pills / diuretics like Lasix or Metolozone, blood pressure meds, etc.) at their usual scheduled time with water. DIET REQUIREMENTS The day before your colonoscopy, you may have a clear liquid diet (see below). The day of your colonoscopy, you may continue a clear liquid diet until 3 hours before your colonoscopy. Within 3 hours of your colonoscopy, take only any medications (as above) with a sip of water. Clear Liquid Diet Broth (chicken, beef or ve (more content not included)... Normal [facility] XR CERVICAL SPINE 2-3 VIEWSo n 03-08-2024 XR CERVICAL SPINE 2-3 VIEWS TITLE OF EXAM: XR - CERVICAL SPINE 2-3 VIEWS REASON FOR EXAM: Neck pain for a year - worsening, stiffness, numbness down right arm into hand. TECHNIQUE: 4 radiographs of the cervical spine COMPARISONS: None. FINDINGS: No fracture; normal vertebral body heights. Retrolisthesis of T2 on C3, 1 to 2 mm. Anterolisthesis of C3 on C4, 1 to 2 mm. Retrolisthesis of C5 on C6, 2 mm. Otherwise anatomic alignment of the vertebral bodies and posterior elements. Straightening of normal cervical lordosis. Anatomic atlantoaxial joints. Degenerative changes are greatest at lower levels, moderate C5-6 and mild to moderate C6-7 degenerative disc disease with reduced intervertebral space and uncovertebral proliferation. Radiographically mild to moderate upper cervical predominant facet osteoarthrosis. IMPRESSION: 1. No fracture. 2. Multilevel listhesis and degenerative changes as detailed. DICTATED ON: 03/08/2024 5:49 PM This report has been electronically signed and approved by the interpreting radiologist. Electronically Signed Mehul Sorto M.D. 2024-03-08 17:51:08 Normal Not Available Comment on above: Order Comment: With flexion and extension Blair 02-15-2024 SILAS Telephone (GASTPE) -------- HANK LIU ([id number]) 1970 F Date Time Provider Department 02/15/24 [facility], PROVIDER GASTPE During your visit today, we recorded the following information about you: Andra Zamudio MA 02/15/2024 4:11 PM Signed Called pt to reschedule as I won't be in on 02/22. Pt did not pickle maker, left vm asking to call office back. ALEJANDRO Marquez Rebecca, MA 02/17/2024 2:28 PM Signed Called pt, rescheduled to 03/16. Andra Zamudio MA Allergies As of Date: 02/15/2024 Noted Allergy Reaction IODINE 04/18/2017 4 - Hives 10 - Anaphylaxis 12 - Shortness of Breath Comments: Other reaction(s): anaphylaxis Other reaction(s): Unknown ATORVASTATIN 05/25/2021 14 - Other: See Comments Comments: Other Reaction(s): arthralgia/myalgia BUPROPION 05/10/2023 14 - Other: See Comments Comments: Other Reaction(s): Other: See Comments IODINATED CONTRAST MEDIA 11/29/2018 4 - Hives 14 - Other: See Comments 12 - Shortness of Breath Comments: Other reaction(s): Difficulty Breathing Other Reaction(s): Difficulty Breathing, Other: See Comments Other reaction(s): Difficulty Breathing MIRTAZAPINE 05/25/2021 4 - Hives 14 - Other: See Comments NALBUPHINE 04/18/2017 12 - Shortness of Breath 14 - Other: See Comments 17 - Myalgia Comments: Other Reaction(s): muscle spams, and breathing, Unknown NUBAIN (NALBUPHINE HCL) 04/18/2017 16 - Unknown Date Reviewed: 12/09/2023 Reviewed by: Soraida Downing [facility] - Fully Assessed Reason for Visit: Appointment [186] Prescriptions as of 02/17/2024 - rosuvastatin (CRESTOR) 40 mg tablet Take 40 mg by mouth daily at bedtime. - traZODone (DESYREL) 100 mg tablet Take 100 mg by mouth daily at bedtime. - rOPINIRole (REQUIP) 0.25 mg tablet Take 0.5 mg by mouth once daily as needed. 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/2023 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] 06/30/2023 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] 06/30/2023 Encounter Status:Closed by ANDRA ZAMUDIO on 02/15/24 [facility] Ambulatory Visit Summaryon 0 01-25-2024 Ambulatory Visit Summary Ambulatory Visit Summary BERLINLASHELL HANK :1970 Visit Date:01/25/2024 Ambulatory Visit Instructions Your Diagnosis Ureteral stone with hydronephrosis Kidney stones AURA (stress urinary incontinence, female) Other urethral stricture, female Former smoker Your Care Team Attending Physician - Seamus DYER MD Primary Care Physician - TREY BROWN DO This Is Your Medications List Contact prescribing physician if questions or concerns ascorbic acid (Vitamin C) docusate (Dulcolax Stool Softener) ibuprofen (ibuprofen 800 mg Tab) multivitamin (Multi Vitamin+) ropinirole rosuvastatin trazodone (traZODONE 100 mg Tab) Procedures Performed Cystourethroscopy with dilation of urethral stricture (08/30/2019), Bowel, Breast, Cholecystectomy, Colonoscopy, Hysterectomy, Left shoulder. Discharge Vitals Heart Rate (Peripheral) 62 Respiratory Rate 16 Blood Pressure 122/77 Height 158 cm Height 62 in Weight 92.2 kg Weight 202.84 lb BMI 36.93 What to do next You Need to Schedule the Following Appointments Follow Up with KELLI HENSLEY, Seamus Lee, URL When: Comments: sched R ESWL/stent placement and possible URS Where: [facility] [address] , [place] [phone] Medications What How Much When Instructions Unchanged ascorbic acid (Vitamin C) Every day Contact prescribing physician if questions or concerns Unchanged docusate (Dulcolax Stool Softener) By Mouth 2 times a day Contact prescribing physician if questions or concerns Unchanged ibuprofen (ibuprofen 800 mg Tab) By Mouth 3 times a day Contact prescribing physician if questions or concerns Unchanged multivitamin (Multi Vitamin+) Contact prescribing physician if questions or concerns Unchanged ropinirole By Mouth Contact prescribing physician if questions or concerns Unchanged rosuvastatin 40 Milligram By Mouth Every day Contact prescribing physician if questions or concerns Unchanged trazodone (traZODONE 100 mg Tab) By Mouth 2 times a day Contact prescribing physician if questions or concerns Allergies iodine (Unknown) Problems Ongoing - Any problem that you are currently receiving treatment for. Anxiety Depression Dysuria Former smoker Frequency of urination Gallstone Hesitancy Hypercholesterolemia Kidney stones Microhematuria Nocturia Other urethral stricture, female Smoker Stomach cancer AURA (stress urinary incontinence, female) Ureteral stone with hydronephrosis Vaginitis Patient Survey You may receive a survey via text or e-mail asking about your office visit. Please share your experience with us by completing your survey. We appreciate your feedback and thank you for choosing us for your care. Education Materials Ureteral Stent Implantation Ureteral stent implantation is a procedure to insert (implant) a flexible, soft, plastic tube (stent) into a ureter. Ureters are the tubelike parts of the body that drain urine from the kidneys. A ureteral stent may be implanted: ? After a procedure to remove a blockage from the ureter (ureterolysis or pyeloplasty). ? To open the flow of urine when a blockage is caused by a kidney stone, tumor, blood clot, or infection. You have two ureters, one on each side of your body. The ureters connect your kidneys to your bladder. The stent is placed so that one end is in your kidney, and one end is in your bladder. The stent supports the ureter while it heals and helps to drain urine. The stent is usually taken out after your ureter has healed. Depending on your condition, you may have a stent for just a few weeks, or you may have a long-term stent that will need to be replaced every few months. Tell a health care provider about: ? Any allergies you have. ? All medicines you are taking, including vitamins, herbs, eye drops, creams, and [id number]-[id number] medicines. ? Any problems you or family members have had with anesthetic medicines. ? Any bleeding problems you have. ? Any surgeries you have had. ? Any medical conditions you have. ? Whether you are or may be . What are the risks? Generally, this is a safe procedure. However, problems may occur, including: ? Infection. ? Bleeding. ? Allergic reactions to medicines. ? Damage to nearby structures or organs, such as tearing (perforation) of the ureter. ? Movement of the stent away from where it is placed during surgery (migration). ? Buildup of a crust or hard coating (encrustation) on the stent. This happens when bacteria in the body form crystals on the stent, causing it to weaken. What happens before the procedure? Medicines Ask your health care provider about: ? Changing or stopping your regular medicines. These include any diabetes medicines or blood thinners you take. ? Taking medicines such as aspirin and ibuprofen. These medicines can (more content not included)... Normal [facility] APTTon 01-25-2024 aPTT Coag (Bld) [Time] 26.7 s NO [facility] No Panel Informationon 01-24 [facility] SRMCOH PROTHROMBIN TIME INR W/O COUMon 01-25-2024 PT Coag (PPP) [Time] 10.3 s [facility] INR 0.97 [facility] Comment on above: DESIRED INR: 2.0-3.0 CONDITIONS NOT LISTED BELOW 2.5-3.5 FOR PROSTHETIC HEART VALVE REPLACEMENT 2.5-3.5 RECURRENT THROMBOSIS Urology Office/Clinic Noteon 01-25-2024 Urology Office/Clinic Note Urology Office/Clinic Note Chief Complaint New Pt HPI Staff New Pt. Hospital follow up. Pt was seen at [facility] on 01/22/24 due to right lower quadrant abdominal pain. CT SCAN 01/22/24 BUN 7, Creatinine 0.72 01/22/24 KUB 01/24/24-[facility] Pt last seen on 08/30/2019 per [facility] Dysuria: denies pain or burning Incomplete bladder emptying: yes Hematuria: denies visible blood Frequency: every 15 minutes Urgency: denies Nocturia: 4x Stream: denies hesitancy, denies weak stream Leaking: denies Post void dripping: denies Wearing pads/ Depends: denies Urge incontinence: denies Stress incontinence: denies Incontinence without Sensory Awareness: denies Abdominal pain: denies Flank pain: denies Sexual complaints: denies History of Present Illness Tests reviewed: reviewed UA, ER notes & labs & CT scan, KUB I have reviewed the previous health record information and history for this patient from Dr. Lincoln and external providers. I have reviewed and verified the staff HPI to be accurate for this encounter. Review of Systems PHQ Score Initial Depression Screen Score: 0 SCORE ROS - Provider Constitutional: denies weight loss, denies hot flashes. Eyes: denies eye problems. Gastrointestinal: denies nausea, denies vomiting. Cardiovascular: denies chest pain or angina. Integumentary: no dryness Musculoskeletal: denies musculoskeletal symptoms. ENMT: denies otolaryngeal symptoms. Respiratory: no shortness of breath. Heme/Lymph: denies easy bleeding tendency, denies easy bruising tendency. Psychiatric: no confusion, no anxiety. Genitourinary: See HPI. Physical Exam Vitals & Measurements HR: 62(Peripheral) RR: 16 BP: 122/77 HT: 62 in HT: 158 cm WT: 92.2 kg WT: 202.84 lb BMI: 36.93 General Appearance: alert , no acute distress, well nourished, well developed female. Genitourinary: bladder nonpalpable, moderate right flank pain upon palpation and mild left flank pain. Assessment/Plan Hank is a 53 yo female new pt here for f/u to ER visit due to right UVJ stone with hydro. Prior Dr. Lincoln pt, last seen 08/30/19 for cysto/UD. Hx of multiple abdominal surgeries. Has had multiple tumors removed since age 9. 1. Ureteral stone with hydronephrosis (N13.2: Hydronephrosis with renal and ureteral calculous obstruction) [facility] ER visit 01/22/24 due to RLQ abdominal pain wiht low urine output. CT AP wo con 01/23/24 - Moderate R hydro secondary to 5mm obstructing R UVJ calculus. Renal fxn - BUN 7, Cr 0.72, GFR >60 Discharged with pain and anti-nausea meds and Flomax. First stone episode. KUB 01/24/24 [facility] - Pelvic phleboliths though there is also still a suspected stone at the distal ureter near the UVJ. Still has severe frequency with low urine output. Has been taking Flomax. UA today negative for blood and infection. No current nasea, fever or chills. Moderate R flank pain. Reviewed imaging results. Advised pt stone is passable given small size. Discussed management options including medical expulsive therapy vs intervention including extracorporeal shockwave lithotripsy vs ureteroscopy with laser lithotripsy/stone basket extraction possible stent. Risks/benefits of each were discussed including but not limited to: MET- renal damage, pain or infection; ESWL- bleeding, hematoma, pain, infection, inability to break up the stone, ureteral obstruction, cardiac arrhythmias, damage to surrounding structures and need for additional procedures; ureteroscopy - bleeding, pain, infection, damage to surrounding structures, ureteral perforation, stricture, inability to treat the stone and need for additional procedures. If a stent is placed, pt understands this is not permanent and needs to be removed or exchanged within 3 months to prevent encrustation, infection, permanent renal damage and need for more invasive procedures. Pt is not interested in MET and is adamant to have stone removed given extensive surgical history. -Cont Flomax -Increase water intake -Has Percocet on hand for severe pain (has not taken yet) -Will schedule Cysto with Right ESWL and possible ureteroscopy/laser/baske t and R JJ Stent Placement. The procedure risks, benefits, details and treatment alternatives have been discussed with the patient. These include blood urine, infection, bleeding around the kidney, kidney bruising, inability to break up the stone, need for blood transfusion, stent pain, injury to the ureter, bladder irritation from the stent, flank pain, and need for additional procedures, among others. Full informed consent has been obtained. Will order General anesthesia. -Then schedule a possible Cystoscopy with Right Retrogrades, Right Ureteroscopy, Right Laser Litho, Right Stone Basket, Right possible stent placement. The procedure risks, benefits, alternatives and complications have been discussed with the patient. These include but are not limited to bleeding, pain, infection, ureteral perforation, extravasation, stricture formation, sepsis, obstruction, (more content not included)... Normal [facility] Comment on above: Result Comment: Elec tronically Signed By: Seamus DYER MD\.br\Date and Time Signed: 01/25/24 10:45 EDT\.br\Electronically Co-Signed By: Marisela Mendoza\.br\Date and Time Co-Signed: 01/25/24 10:41 EDT\.br\Electronically Co-Signed By: Marisela Mendoza\.br\Date and Time Co-Signed: 01/25/24 10:42 EDT XR KUBon 01-24-2024 XR KUB [facility] [address] [address] XRay Report Signed Patient: Hank Liu MR#: [id number] 30 : 1970 Acct:[id number] Age/Sex: 53 / F ADM Date: 01/24/24 Loc: XD Room: Type: [facility] Attending Dr: Seamus Dyer MD Copies to: Seamus Dyer MD Ordering Provider: Seamus Dyer MD Date of Service: 01/24/24 XR/XR KUB: N20.0 KUB: COMPARISON: CT 01/23/2024 CLINICAL DATA: Continued right-sided abdominal pain and difficulty urinating. Ureterovesical junction stone on recent CT . Supine view of the abdomen and pelvis was obtained. There is mild air and stool within the colon. There is also small bowel air, without disproportionate distention. There are no soft tissue masses. There is a tiny calcification overlying the right kidney that may correlate with the stone seen on CT. There are pelvic phleboliths though there is also still a suspected stone at the distal ureter near the ureterovesical junction. Subtle levoscoliotic curvature and mild degenerative changes are noted spine. XR/XR KUB IMPRESSION: CONTINUED RIGHT NEPHROLITHIASIS AND POTENTIAL DISTAL RIGHT URETERAL STONE. Impression dictated by: Billie Edwards M.D.01/24/2024 5:36 PM Dictation Location: [place] [address] Transcribed By: [facility] 01/24/24 1736 Dictated By: Billie Edwards MD 01/24/24 1729 Signed By: 01/24/24 173 Normal [facility] CT abdomen pelvis wo conon 0 01-23-2024 CT abdomen pelvis wo con [facility] [address] [address] [address] Scan Report Signed Patient: Hank Liu MR#: [id number] 30 : 1970 Acct:[id number] Age/Sex: 53 / F ADM Date: 01/22/24 Loc: ER Room: Type: [facility] ER Attending Dr: Copies to: Seamus Monaco DO Ordering Provider: Seamus Monaco DO Date of Service: 01/23/24 CT/CT abdomen pelvis wo con: rlq pain CT Abdomen and Pelvis withoutcontrast TECHNIQUE: Axial imaging with 2-D reconstruction. . The CT exam was performed using one or more the following dose reduction techniques: Automated exposure control, adjustment of the MA and/or Kv according to patient size, or use of the iterative reconstruction technique. COMPARISON: 12/07/23 History: RIGHT flank pain. LIMITATIONS: None LOWER THORAX Unremarkable LIVER: Hepatic steatosis. Mild hepatomegaly. GALLBLADDER: Cholecystectomy clips identified. BILE DUCTS: Mild prominence likely secondary to cholecystectomy. SPLEEN: Unremarkable PANCREAS: Unremarkable ADRENAL GLANDS: Unremarkable KIDNEYS:Moderate RIGHT hydronephrosis secondary to 5 mm obstructing RIGHT UVJ calculus. Small nonobstructing bilateral renal calculi. AORTA: No abdominal aortic aneurysm identified. RETROPERITONEUM: No significant retroperitoneal abnormalities identified. MESENTERY:Unremarkable SMALL BOWEL: The small bowel loops are nondistended. APPENDIX: The appendix is normal. COLON: Moderate constipation. Distal colonic diverticulosis. URINARY BLADDER: Urinary bladder is unremarkable. REPRODUCTIVE SYSTEM: Reproductive structures are unremarkable. PNEUMOPERITONEUM: None PERITONEAL FLUID:None BONY STRUCTURES: Similar lumbar degeneration. ABDOMINAL WALL: Unremarkable CT/CT abdomen pelvis wo con IMPRESSION: Obstructing 5 mm RIGHT UVJ calculus with moderate hydronephrosis. Impression dictated by: Trey Ford M.D.01/23/2024 7:18 AM Dictation Location: [place] [address] Transcribed By: [facility] 01/23/24717 Dictated By: Trey Ford DO 01/23/24714 Signed By: 01/23/24717 Normal [facility] Alanine aminotransferase [En zymatic activity/volume] in Serum or PlasmaOrdered By: Seamus Monaco on 01-22-2024 ALT [Catalytic activity/Vol] 22 U/L Normal 7-52 [facility] Comment on above: Performed By: #### B MP, CBC, LIPASE, HEPATIC #### [address] Albumin [Mass/volume] in Ser um or Plasma by Bromocresol green (BCG) dye binding methoOrdered By: Seamus Monaco on 01-22-2024 Albumin BCG dye [Mass/Vol] 4.8 g/dL 3.5-5.7 [facility] Alkaline phosphatase [Enzyma tic activity/volume] in Serum or PlasmaOrdered By: Seamus Monaco on 01-22-2024 ALP [Catalytic activity/Vol] 61 U/L Normal 34-104 [facility] Comment on above: Performed By: #### B MP, CBC, LIPASE, HEPATIC #### [address] Aspartate aminotransferase [ Enzymatic activity/volume] in Serum or PlasmaOrdered By: Seamus Monaco on 01-22-2024 AST [Catalytic activity/Vol] 31 U/L Normal 13-39 [facility] Comment on above: Performed By: #### B MP, CBC, LIPASE, HEPATIC #### [address] Automated basophil %Ordered By: Seamus Monaco on 01-22-2024 Basophils/100 WBC (Bld) 0.8 % Normal . [facility] Comment on above: Performed By: #### B MP, CBC, LIPASE, HEPATIC #### [address] Automated basophil countOrde red By: Seamus Monaco on 01-22-2024 Basophils (Bld) [#/Vol] 0.1 10*3/uL Normal 0.0-0.2 [facility] Comment on above: Result Comment: PERF ORMED BY: [place] [address] PATHOLOGIST POWER STATION OPERATOR ISMAEL WILKINSON M.D. Performed By: #### B MP, CBC, LIPASE, HEPATIC #### [address] Automated blood monocyte cou ntOrdered By: Seamus Monaco on 01-22-2024 Monocytes (Bld) [#/Vol] 0.6 10*3/uL Normal 0.0-0.8 [facility] Comment on above: Performed By: #### B MP, CBC, LIPASE, HEPATIC #### [address] Automated eosinophil %Ordere d By: Seamus Monaco on 01-22-2024 Eosinophils/100 WBC (Bld) 0.5 % Normal . [facility] Comment on above: Performed By: #### B MP, CBC, LIPASE, HEPATIC #### [address] Automated eosinophil countOr dered By: Seamus Monaco on 01-22-2024 Eosinophils (Bld) [#/Vol] 0.0 10*3/uL Normal 0.0-0.45 [facility] Comment on above: Performed By: #### B MP, CBC, LIPASE, HEPATIC #### [address] Automated monocyte %Ordered By: Seamus Monaco on 01-22-2024 Monocytes/100 WBC (Bld) 6.5 % Normal . [facility] Comment on above: Performed By: #### B MP, CBC, LIPASE, HEPATIC #### [address] Automated neutrophil %Ordere d By: Seamus Monaco on 01-22-2024 Neutrophils/100 WBC (Bld) 67.9 % Normal . [facility] Comment on above: Performed By: #### B MP, CBC, LIPASE, HEPATIC #### [address] Basic Metabolic Panelon 01-07 Creatinine Clr Calc Pharmacy 91.54 Normal [facility] Comment on above: Performed By: #### B MP, CBC, LIPASE, HEPATIC #### [address] GFR/1.73 sq M.predicted MDRD (S/P/Bld) [Vol rate/Area] mL/min/{1.73_m2} Normal [facility] Comment on above: Performed By: #### B MP, CBC, LIPASE, HEPATIC #### [facility] [address] Bilirubin Test strip Ql (U)O rdered By: ERIN YANG on 01-22-2024 Bilirubin Ql (U) Negative Negative [facility] Bilirubin.direct [Mass/volum e] in Serum or PlasmaOrdered By: Seamus Monaco on 01-22-2024 Bilirubin.direct [Mass/Vol] 0.00 mg/dL Low 0.03-0.18 [facility] Comment on above: If the DBIL is less than 0.1, IBIL is not able to becalculated. Bilirubin.total [Mass/volume ] in Serum or PlasmaOrdered By: Seamus Monaco on 01-22-2024 Bilirubin [Mass/Vol] 0.3 mg/dL Normal 0.3-1.0 [facility] Comment on above: Performed By: #### B MP, CBC, LIPASE, HEPATIC #### [facility] [address] [place] [address] [place] Calcium [Mass/volume] in Ser um or PlasmaOrdered By: Seamus Monaco on 01-22-2024 Calcium [Mass/Vol] 10.4 mg/dL High 8.6-10.3 [facility] Comment on above: Performed By: #### B MP, CBC, LIPASE, HEPATIC #### [facility] [address] [place] [address] Carbon dioxide, total [Moles /volume] in Serum or PlasmaOrdered By: Seamus Monaco on 01-22-2024 CO2 [Moles/Vol] 26.2 mmol/L Normal 21.0-31.0 [facility] Comment on above: Performed By: #### B MP, CBC, LIPASE, HEPATIC #### [facility] [address] [place] [address] [place] Chloride [Moles/volume] in S samson or PlasmaOrdered By: Seamus Monaco on 01-22-2024 Chloride [Moles/Vol] 111 mmol/L High 98-107 [facility] Comment on above: Performed By: #### B MP, CBC, LIPASE, HEPATIC #### [address] Color of Urine by AutoOrdere d By: ERIN YANG on 01-22-2024 Color (U) Colorless Normal Yellow [facility] Comment on above: Order Comment: Name Collection Type:: Clean-Voided Midstream Performed By: #### B MP, CBC, LIPASE, HEPATIC #### [address] Complete Blood Count Auto Di ffon 01-22-2024 Mean Corpuscular HGB Conc 33.8 g/dL Normal 32.0-35.0 [facility] Comment on above: Performed By: #### B MP, CBC, LIPASE, HEPATIC #### [address] Monocytes/100 WBC (Bld) 18.04 % Normal 0.00-20.00 [facility] Comment on above: Performed By: #### B MP, CBC, LIPASE, HEPATIC #### [address] NRBC% 0.1 /100{WBC} Normal 0-0.5 [facility] Comment on above: Performed By: #### B MP, CBC, LIPASE, HEPATIC #### [address] Creatinine [Mass/volume] in Serum or PlasmaOrdered By: Seamus Monaco on 01-22-2024 Creatinine [Mass/Vol] 0.72 mg/dL Normal 0.60-1.20 [facility] Comment on above: Performed By: #### B MP, CBC, LIPASE, HEPATIC #### [address] Erythrocyte distribution wid th [Ratio] by Automated countOrdered By: Seamus Monaco on 01-22-2024 Erythrocyte distribution width (RBC) [Ratio] 13.7 % Normal 11.9-15.3 [facility] Comment on above: Performed By: #### B MP, CBC, LIPASE, HEPATIC #### [address] Erythrocytes [#/volume] in B lood by Automated countOrdered By: Seamus Monaco on 01-22-2024 RBC (Bld) [#/Vol] 4.63 10*6/uL Normal 3.60-5.00 [facility] Comment on above: Performed By: #### B MP, CBC, LIPASE, HEPATIC #### [facility] [address] [place] [address] [place] Glucose [Mass/volume] in Ser um or PlasmaOrdered By: Seamus Monaco on 01-22-2024 Glucose [Mass/Vol] 109 mg/dL High 70-100 [facility] Comment on above: ADA recommended refe rence rangeRandom Glucose Reference Range is dependent on time and content of last meal. Glucose of more than 200 mg/dL in a nonstressed, ambulatory subject supports the diagnosis of Diabetes Mellitus. Result Comment: [place] om Glucose Reference Range is dependent on time and content of last meal. Glucose of more than 200 mg/dL in a nonstressed, ambulatory subject supports the diagnosis of Diabetes Mellitus. ADA recommended reference range Performed By: #### B MP, CBC, LIPASE, HEPATIC #### [facility] [address] [place] [address] [facility] Glucose [Mass/volume] in Uri ne by Test stripOrdered By: PROVIDER TEMP on 01-22-2024 Glucose Test strip (U) [Mass/Vol] Normal mg/dL Normal [facility] Hematocrit [Volume Fraction] of Blood by Automated countOrdered By: Seamus Monaco on 01-22-2024 Hematocrit (Bld) [Volume fraction] 38.5 % Normal 34.0-46.4 [facility] Comment on above: Performed By: #### B MP, CBC, LIPASE, HEPATIC #### [facility] [address] [place] [address] [facility] Hemoglobin Test strip Ql (U) Ordered By: PROVIDER TEMP on 01-22-2024 Hemoglobin Ql (U) Negative Negative [facility] Hemoglobin [Mass/volume] in BloodOrdered By: Seamus Monaco on 01-22-2024 Hemoglobin (Bld) [Mass/Vol] 13.0 g/dL Normal 11.8-15.4 [facility] Comment on above: Performed By: #### B MP, CBC, LIPASE, HEPATIC #### [facility] [address] Hepatic Panelon 01-22-2024 Albumin [Mass/Vol] 4.8 g/dL Normal 3.5-5.7 [facility] Comment on above: Performed By: #### B MP, CBC, LIPASE, HEPATIC #### [address] Bilirubin,Indirect 0.3 mg/dL Normal [facility] Comment on above: Performed By: #### B MP, CBC, LIPASE, HEPATIC #### [address] Bilirubin.indirect [Mass/Vol] 0.00 mg/dL Low 0.03-0.18 [facility] Comment on above: Result Comment: If t he DBIL is less than 0.1, IBIL is not able to be calculated. Performed By: #### B MP, CBC, LIPASE, HEPATIC #### [address] Ketones [Presence] in Urine by Test stripOrdered By: PROVIDER TEMP on 01-22-2024 Ketones Ql (U) Negative Normal Negative [facility] Comment on above: Order Comment: Name Collection Type:: Clean-Voided Midstream Performed By: #### B MP, CBC, LIPASE, HEPATIC #### [address] Leukocyte esterase [Presence ] in Urine by Test stripOrdered By: PROVIDER TEMP on 01-22-2024 Leukocyte esterase Test strip Ql (U) Negative Normal Negative [facility] Comment on above: Order Comment: Name Collection Type:: Clean-Voided Midstream Performed By: #### B MP, CBC, LIPASE, HEPATIC #### [address] Leukocytes [#/volume] correc thor for nucleated erythrocytes in Blood by Automated counOrdered By: Seamus Monaco on 01-22-2024 WBC corrected for nucl RBC Auto (Bld) [#/Vol] 9.0 10*3/uL 3.8-11.6 [facility] Leukocytes [#/volume] in Blo od by Automated countOrdered By: Seamus Monaco on 01-22-2024 WBC (Bld) [#/Vol] 9.0 10*3/uL Normal 3.8-11.6 [facility] Comment on above: Performed By: #### B MP, CBC, LIPASE, HEPATIC #### [address] Lipase [Enzymatic activity/v olume] in Serum or PlasmaOrdered By: Seamus Monaco on 01-22-2024 Lipase [Catalytic activity/Vol] 30.0 U/L Normal 11.0-82.0 [facility] Comment on above: Result Comment: PERF ORMED BY: [place] [address] PATHOLOGIST POWER STATION OPERATOR ISMAEL WILKINSON M.D. Performed By: #### B MP, CBC, LIPASE, HEPATIC #### [place] [address] [place] Lymphocytes [#/volume] in Bl ood by Automated countOrdered By: Seamus Monaco on 01-22-2024 Lymphocytes (Bld) [#/Vol] 2.2 10*3/uL Normal 1.00-4.8 [facility] Comment on above: Performed By: #### B MP, CBC, LIPASE, HEPATIC #### [place] [address] [place] Lymphocytes/100 leukocytes i n Blood by Automated countOrdered By: Seamus Monaco on 01-22-2024 Lymphocytes/100 WBC (Bld) 24.3 % Normal . [facility] Comment on above: Performed By: #### B MP, CBC, LIPASE, HEPATIC #### [place] [address] [place] MCH [Entitic mass] by Automa thor countOrdered By: Seamus Monaco on 01-22-2024 MCH (RBC) [Entitic mass] 28.1 pg Normal 24.7-34.3 [facility] Comment on above: Performed By: #### B MP, CBC, LIPASE, HEPATIC #### [facility] [address] [place] [address] MCHC Auto (RBC) [Mass/Vol]Or dered By: Seamus Monaco on 01-22-2024 MCHC (RBC) [Mass/Vol] 33.8 g/dL 32.0-35.0 [facility] MCV [Entitic volume] by Auto mated countOrdered By: Seamus Monaco on 01-22-2024 MCV (RBC) [Entitic vol] 83.3 fL Normal 80-100 [facility] Comment on above: Performed By: #### B MP, CBC, LIPASE, HEPATIC #### [facility] [address] [place] [address] Monocyte distribution width [Entitic volume] in Blood by AutomatedOrdered By: Seamus Monaco on 01-22-2024 Monocyte distribution width Auto (Bld) [Entitic vol] 18.04 % 0.00-20.00 [facility] Neutrophils [#/volume] in Bl ood by Automated countOrdered By: Seamus Monaco on 01-22-2024 Neutrophils (Bld) [#/Vol] 6.1 10*3/uL Normal 1.8-7.7 [facility] Comment on above: Performed By: #### B MP, CBC, LIPASE, HEPATIC #### [facility] [address] [place] [address] Nitrite Test strip Ql (U)Ord ered By: PROVIDER TEMP on 01-22-2024 Nitrite Ql (U) Negative Negative [facility] No Panel InformationOrdered By: Seamus Monaco on 01-22-2024 Estimated GFR (CKD-EPI) > 60.0 mL/Min [facility] Creatinine Clearance (Chem 91.54 [facility] Nucleated erythrocytes [Pres ence] in Blood by Automated countOrdered By: Seamus Monaco on 01-22-2024 Nucleated RBC Auto Ql (Bld) 0.1 /100{WBC} 0-0.5 [facility] Platelet mean volume [Entiti c volume] in Blood by Automated countOrdered By: Seamus Monaco on 01-22-2024 Platelet mean volume (Bld) [Entitic vol] 8.2 fL Normal 6.3-10.7 [facility] Comment on above: Performed By: #### B MP, CBC, LIPASE, HEPATIC #### [facility] [address] Platelets [#/volume] in Bloo d by Automated countOrdered By: Seamus Monaco on 01-22-2024 Platelets (Bld) [#/Vol] 256 10*3/uL Normal 150-450 [facility] Comment on above: Performed By: #### B MP, CBC, LIPASE, HEPATIC #### [facility] [address] Potassium [Moles/volume] in Serum or PlasmaOrdered By: Seamus Monaco on 01-22-2024 Potassium [Moles/Vol] 3.9 mmol/L Normal 3.5-5.1 [facility] Comment on above: Performed By: #### B MP, CBC, LIPASE, HEPATIC #### [facility] [address] Protein Test strip (U) [Mass /Vol]Ordered By: ERIN YANG on 01-22-2024 Protein (U) [Mass/Vol] Negative Negative [facility] Protein [Mass/volume] in Ser um or PlasmaOrdered By: Seamus Monaco on 01-22-2024 Protein [Mass/Vol] 7.5 g/dL Normal 6.4-8.9 [facility] Comment on above: Performed By: #### B MP, CBC, LIPASE, HEPATIC #### [facility] [address] Serum globulin measurement b y calculation (mass/volume)Ordered By: Seamus Monaco on 01-22-2024 Globulin (S) [Mass/Vol] 2.7 g/dL Normal [facility] Comment on above: Performed By: #### B MP, CBC, LIPASE, HEPATIC #### [facility] [address] Serum or plasma albumin/glob ulin mass ratioOrdered By: Seamus Monaco on 01-22-2024 Albumin/Globulin [Mass ratio] 1.8 {ratio} Normal [facility] Comment on above: Performed By: #### B MP, CBC, LIPASE, HEPATIC #### [facility] [address] Serum or plasma anion gap de terminationOrdered By: Seamus Monaco on 01-22-2024 Anion gap [Moles/Vol] 1.7 mmol/L Low 6.0-15.0 [facility] Comment on above: Performed By: #### B MP, CBC, LIPASE, HEPATIC #### [facility] [address] Serum or plasma non-glucuron idated bilirubin measurement (mass/volume)Ordered By: Seamus Monaco on 01-22-2024 Bilirubin.indirect [Mass/Vol] 0.3 mg/dL [facility] Sodium [Moles/volume] in Ser um or PlasmaOrdered By: Seamus Monaco on 01-22-2024 Sodium [Moles/Vol] 135 mmol/L Low 136-145 [facility] Comment on above: Performed By: #### B MP, CBC, LIPASE, HEPATIC #### [address] Specific gravity Test strip (U) [Rel density]Ordered By: ERIN YANG on 01-22-2024 Specific gravity (U) [Rel density] 1.011 1.001-1.03 0 [facility] Urea nitrogen [Mass/volume] in Serum or PlasmaOrdered By: Seamus Monaco on 01-22-2024 Urea nitrogen [Mass/Vol] 7 mg/dL Normal 7-25 [facility] Comment on above: Performed By: #### B MP, CBC, LIPASE, HEPATIC #### [facility] [address] Urinalysison 01-22-2024 Bilirubin,Urine Negative Normal Negative [facility] Comment on above: Order Comment: Name Collection Type:: Clean-Voided Midstream Performed By: #### B MP, CBC, LIPASE, HEPATIC #### [facility] [address] Glucose Ql (U) Normal Normal Normal [facility] Comment on above: Order Comment: Name Collection Type:: Clean-Voided Midstream Performed By: #### B MP, CBC, LIPASE, HEPATIC #### [facility] [address] Nitrite,Urine Negative Normal Negative [facility] Comment on above: Order Comment: Name Collection Type:: Clean-Voided Midstream Performed By: #### B MP, CBC, LIPASE, HEPATIC #### [address] Occult Blood,Urine Negative Normal Negative [facility] Comment on above: Order Comment: Name Collection Type:: Clean-Voided Midstream Result Comment: PERF ORMED BY: [place] [address] PATHOLOGIST POWER STATION OPERATOR ISMAEL WILKINSON M.D. Performed By: #### B MP, CBC, LIPASE, HEPATIC #### [address] Protein,Urine Negative Normal Negative [facility] Comment on above: Order Comment: Name Collection Type:: Clean-Voided Midstream Performed By: #### B MP, CBC, LIPASE, HEPATIC #### [address] Specificy [place],Urine 1.011 Normal 1.00 1-1.03 0 [facility] Comment on above: Order Comment: Name Collection Type:: Clean-Voided Midstream Performed By: #### B MP, CBC, LIPASE, HEPATIC #### [address] Urobilinogen,Urine Normal Normal Normal [facility] Comment on above: Order Comment: Name Collection Type:: Clean-Voided Midstream Performed By: #### B MP, CBC, LIPASE, HEPATIC #### [address] Urine appearanceOrdered By: PROVIDER TEMP on 01-22-2024 Appearance (U) Clear Normal Clear [facility] Comment on above: Order Comment: Name Collection Type:: Clean-Voided Midstream Performed By: #### B MP, CBC, LIPASE, HEPATIC #### [facility] [address] Urobilinogen Test strip (U) [Mass/Vol]Ordered By: PROVIDER TEMP on 01-22-2024 Urobilinogen (U) [Mass/Vol] Normal mg/dL Normal [facility] pH of Urine by Test stripOrd ered By: PROVIDER TEMP on 01-22-2024 pH (U) 5.0 [pH] Normal 5.0-9.0 [facility] Comment on above: Order Comment: Name Collection Type:: Clean-Voided Midstream Performed By: #### B MP, CBC, LIPASE, HEPATIC #### [facility] [address] CNNURSEon 12-26-2023 [facility] Nurse Visit (GASTSASHA) -------- HANK LIU ([id number]) 1970 F Date Time Provider Department 12/26/23 11:00 AM NURSE AZRA CALDWELL During your visit today, we recorded the following information about you: Rene Mir CT 12/27/2023 8:30 AM Signed LACTULOSE HYDROGEN BREATH TEST FOR SMALL BOWEL BACTERIAL OVERGROWTH Date: December 27, 2023 Referring Physician: Naty Booker Jr., Chief Complaint Abdominal Pain Bloating Constipation Acid Reflux/Heartburn Flatulence/Gas Diarrhea Symptoms prior to start of study: Abdominal pain [] 4 week restrictions [] 72 hour restrictions [] 12 hour fasting [] Followed the special diet Baseline Hydrogen PPM: 2 Methane PPM: 0 SARAH Thompson Lactulose 15mL given at: 955AM Start Time:1000am 20 minutes Hydrogen PPM: 3 Methane PPM: 0 SARAH Thompson 40 minutes Hydrogen PPM: 2 Methane PPM: 0 SARAH Thompson 1 hour Hydrogen PPM: 4 Methane PPM: 0 Rene Mir, CT 1 hour 20 minutes Hydrogen PPM: 4 Methane PPM: 0 Rene Mir, CT 1 hour, 40 minutes Hydrogen PPM: 4 Methane PPM: 1 Rene Mir, CT 2 hours Hydrogen PPM: 8 Methane PPM: 0 Rene Mir, CT 2 hours, 20 minutes Hydrogen PPM: 6 Methane PPM: 0 Rene Mir, CT 2 hours, 40 minutes Hydrogen PPM: 8 Methane PPM: 0 Rene Mir, CT 3 hours Hydrogen PPM: 7 Methane PPM: 2 Rene Mir, CT Symptoms developed during the study period: Diarrhea Patient Results Preliminary Test Results (not given to patient): pending Rene Mir, CT Referring Provider: NATY BOOKER JR [[id number]] Allergies As of Date: 12/26/2023 Noted Allergy Reaction IODINE 04/18/2017 4 - Hives 10 - Anaphylaxis 12 - Shortness of Breath Comments: Other reaction(s): anaphylaxis Other reaction(s): Unknown ATORVASTATIN 05/25/2021 14 - Other: See Comments Comments: Other Reaction(s): arthralgia/myalgia BUPROPION 05/10/2023 14 - Other: See Comments Comments: Other Reaction(s): Other: See Comments IODINATED CONTRAST MEDIA 11/29/2018 4 - Hives 14 - Other: See Comments 12 - Shortness of Breath Comments: Other reaction(s): Difficulty Breathing Other Reaction(s): Difficulty Breathing, Other: See Comments Other reaction(s): Difficulty Breathing MIRTAZAPINE 05/25/2021 4 - Hives 14 - Other: See Comments NALBUPHINE 04/18/2017 12 - Shortness of Breath 14 - Other: See Comments 17 - Myalgia Comments: Other Reaction(s): muscle spams, and breathing, Unknown NUBAIN (NALBUPHINE HCL) 04/18/2017 16 - Unknown Date Reviewed: 12/09/2023 Reviewed by: Soraida Downing OCCA - Fully Assessed Reason for Visit: Breath Hydrogen Test [473] Primary Visit Diagnosis:Abdominal bloating [R14.0] Other Visit Diagnosis:Small intestinal bacterial overgrowth (SIBO) [K63.8219] Prescriptions as of 12/27/2023 - rosuvastatin (CRESTOR) 40 mg tablet Take 40 mg by mouth daily at bedtime. - traZODone (DESYREL) 100 mg tablet Take 100 mg by mouth daily at bedtime. - rOPINIRole (REQUIP) 0.25 mg tablet Take 0.5 mg by mouth once daily as needed. 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 TECHNIQUE: 3 view(s) of the abdomen were obtained. COMPARISON: No available comparisons. RESULT: No dilated loops of bowel. Moderate stool in the colon. No pathological calcifications. Osseous structures are intact. IMPRESSION: No dilated loops of bowel. Transcribe Date/Time: Dec 22 2023 12:06P Dictated by: ELIANA ANGLIN MD This examination was interpreted and the report reviewed and electronically signed by: ELIANA ANGLIN MD on Dec 22 2023 12:07PM EST Thank you for allowing us to participate in the care of your patient. Should there be any questions regarding this interpretation, please call [phone]. If you are unable to reach us at the number above, please feel free to contact [facility] at [phone]. [id number] Normal [facility] XR Abdomen Supine and Uprigh ton 12-22-2023 IMPRESSION: No dilated loops of bowel. Transcribe Date/Time: Dec 22 2023 12:06P Dictated by: ELIANA ANGLIN MD This examination was interpreted and the report reviewed and electronically signed by: ELIANA ANGLIN MD on Dec 22 2023 12:07PM EST Thank you for allowing us to participate in the care of your patient. Should there be any questions regarding this interpretation, please call [phone]. If you are unable to reach us at the number above, please feel free to contact [facility] at [phone]. DIVISION OF RADIOLOGY * * *Final Report* * * DATE OF EXAM: Dec 22 2023 8:22AM [id number] [id number] - XR ABDOMEN 1V SUPINE / PROCEDURE REASON: multiple diagnoses * * * * Physician Interpretation * * * * RESULT: ABDOMINAL RADIOGRAPHS HISTORY: LLQ pain Constipation, unspecified constipation type . TECHNIQUE: 3 view(s) of the abdomen were obtained. COMPARISON: No available comparisons. RESULT: No dilated loops of bowel. Moderate stool in the colon. No pathological calcifications. Osseous structures are intact. DIVISION OF RADIOLOGY Provider, [facility] [place] - 12/22/2023 * * *Final Report* * * DATE OF EXAM: Dec 22 2023 8:22AM [id number] [id number] - XR ABDOMEN 1V SUPINE / PROCEDURE REASON: multiple diagnoses * * * * Physician Interpretation * * * * RESULT: ABDOMINAL RADIOGRAPHS HISTORY: LLQ pain Constipation, unspecified constipation type . TECHNIQUE: 3 view(s) of the abdomen were obtained. COMPARISON: No available comparisons. RESULT: No dilated loops of bowel. Moderate stool in the colon. No pathological calcifications. Osseous structures are intact. IMPRESSION IMPRESSION: No dilated loops of bowel. Transcribe Date/Time: Dec 22 2023 12:06P Dictated by: ELIANA ANGLIN MD This examination was interpreted and the report reviewed and electronically signed by: ELIANA ANGLIN MD on Dec 22 2023 12:07PM EST Thank you for allowing us to participate in the care of your patient. Should there be any questions regarding this interpretation, please call [phone]. If you are unable to reach us at the number above, please feel free to contact [facility] at [phone]. [facility] Radiology Study observation (narrative) [facility] XR Abdomen Supine and Uprigh tOrdered By: [facility] Provider on 12-22-2023 [facility] FAT, FECAL QUALon 12-20-2023 FAT, FECAL - NEUTRAL Normal Normal Normal [facility] Comment on above: Order Comment: Speci men Type: STOOL SPECIMENOrdering Facility: [facility] Address: [address] [place] [address] Performed By: #### F FATQL ####[employer]CLIA [id number] [place] [address] FAT, FECAL - SPLIT Normal Normal Normal [facility] Comment on above: Order Comment: Speci men Type: STOOL SPECIMENOrdering Facility: [facility] Address: [address] [place] [address] Result Comment: INTE RPRETIVE INFORMATION: Fecal Fat Qualitative Neutral fats include the monoglycerides, diglycerides, and triglycerides while split fats are the free fatty acids that are liberated from them. Impaired synthesis or secretion of pancreatic enzymes or bile may cause an increase in neutral fats while an increase in split fats suggests impaired absorption of nutrients. Performed By: [address] [place] [address] Roofing Technician: Jarocho Stewart MD, PhD CLIA Number: [id number] Performed By: #### F FATQL ####[employer] LABORATORIESCLIA [id number] [place] [address] CNOVon 12-09-2023 CNOV Office Visit (GASTAV ) -------- HANK LIU ([id number]) 1970 F Date Time Provider Department 12/09/23 8:40 AM LALA CARBAJAL During your visit today, we recorded the following information about you: Pulse Blood pressure Weight Height 74/minute 131/89 92.1 kg 1.575 m Lala Carbajal MD, PhD 12/09/2023 11:15 PM Addendum CLINICAL HISTORY: This is a 53 year old female who presents today in consultation for an evaluation of abdominal pain at the request of Trey Brown DO Pt states 1 BM daily, regular to diarrhea without bleeding. 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 but wants a 2nd set of eyes She has pain all the time Has nausea off an on On her left side She says she was told the was due to constipation Finally went this am after a lot of laxative Usually she has diarrhea Started being constipated a few days ago That is rare Said she did not know she could be constipated Wondered if it was She went 3 days without a bm Usually she goes every day Some days are diarrhea days some are not Often is sticky and pasty Had white stool a few times The diarrhea is regular, usually once a day Sometimes strains Gets stomach spasms 2011 told she had 2 tumors in duodenum and stomach cancer Weight is up Has gained 40# Thinks its due to pain and can't exercise If her sides or stomach hurts she is nauseated She can't walk she feels she has swollen Calorie intake is 1200 Does the brat diet Her abdominen is distended Got a steroid and felt better and her abdomen was flat Told it was infection for the inflammation and given abx Treated for diverticulitis by Dr Booker Went to er with abdominal pain Went to [facility] er yesterday, has been 4 times in past 6 months Got dilaudid-that made her more constipated No blood in stool Nausea: on an off, not sure why Used to take creon, was stopped for ? Reason Did not feel any different except when eating red meat Says when eats red meat has constpiation but on creon that does not happen Diet: Eats sour dough bread with egg avacado Lunch chicken potato salad peppers apples grape Dinner what every stuffed peppers Foods bother her: Red meat, spicy foods etc VITALS: Blood pressure 131/89, pulse 74, height 157.5 cm (5' 2 ), weight 92.1 kg (203 lb 0.7 oz), SpO2 98%. ALLERGIES: Iodine, Atorvastatin, Bupropion, Iodinated Contrast Media, Mirtazapine, Nalbuphine, and Nubain [Nalbuphine Hcl] MEDICATIONS: Current Outpatient Medications Medication Sig Dispense Refill rosuvastatin (CRESTOR) 40 mg tablet Take 40 mg by mouth daily at bedtime. traZODone (DESYREL) 100 mg tablet Take 100 mg by mouth daily at bedtime. rOPINIRole (REQUIP) 0.25 mg tablet Take 0.5 mg by mouth once daily as needed. L.acid/B.bifidum/B.anima l/FOS (PROBIOTIC COMPLEX ORAL) Take by mouth. No current facility-administered medications for this visit. 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 No date: Gall stones No date: GERD (gastroesophageal reflux disease) No date: Hemorrhoids No date: Hyperlipidemia No date: Stomach ulcer No date: UTI (urinary tract infection) PAST SURGICAL HISTORY: PAST SURGICAL HISTORY No date: ANESTH, SECTION No date: CHOLECYSTECTOMY 03/22/2016: COLONOSCOPY No date: EGD No date: HYSTERECTOMY HX Comment: told she still has cervix, was for bleeding No date: LAP REMOVE/REV MESH BLADDER WALL 04/2019: PAST SURGICAL HISTORY OF Comment: breast reconstruction No date: SLEEVE RESECTION STOMACH FAMILY HISTORY: mom with colon cancer and brother, 53, 54, brother with kidney cancer SOCIAL HISTORY: Social History Tobacco Use Smoking status: Former Types: Cigarettes Quit date: 05/2022 Years since quittin.5 Passive exposure: Current Smokeless tobacco: Never Vaping Use Vaping Use: Never used Substance Use Topics Alcohol use: Not Currently Drug use: No Work up to date: Abd CT Reviewed with patient during visit today. REVIEW OF SYSTEMS: GENERAL:+ weight gain, malaise or fevers., SEE HPI HEENT: Negative for frequent or significant headaches, NECK: Negative for lumps, goiter, pain and significant neck swelling RESPIRATORY: Negative for cough, wheezing or shortness of breath. CARDIOVASCULAR: Negative for chest pain, leg swelling or palpitations. GI: See HPI : No history of dysuria, frequency or incontinence CLEAT BLANKER: Had hysterectomy MUSCULOSKELETAL: Negative for joint pain or swelling, back pain or muscle pain. SKIN: Negative for lesions, rash, and itching. PSYCH: Negative for sleep disturbance--sleep apnea has maching , mood disorder and recent psychosocial stressors. HEMATOLOGY/LYMPHOLOGY Negative for prolonged bleeding, bruising easily or swollen nodes. ENDOCRINE: Negative for cold or heat intolerance, polyuria, polydipsia (more content not included)... Normal [facility] CNOVSPon 12-08-2023 CNOVSP Visit (SP) Office ([place]) -------- HANK LIU ([id number]) 1970 F Date Time Provider Department 12/08/23 3:15 PM ANNEMARIE JUDD During your visit today, we recorded the following information about you: Temperature Pulse Respiration Blood pressure 97.3 degrees 85/minute 16/minute 119/77 Weight 93.2 kg Annemarie Judd MD 12/10/2023 12:49 PM Signed NAME: Hank Liu CLINIC NO.: [id number] DATE OF SERVICE: December 08, 2023 (Benjamín) Some elements in this clinic note that are critical to medical decision making have been carefully reviewed and included from a prior clinic note dated: August 19, 2023 (Benjamín) Additional Clinicians involved in Hank Liu's care: Trey Brown DO ASSESSMENT: History of carcinoid of the upper GI tract. Resected in 2011 without adjuvant therapy. We don't have all the records and she is not clear on the details. Currently in surveillance. Has chronic diarrhea. Octrescan 10/24/17 did not identify recurrent or metastatic disease. Elevating chromogranin A in November 2018 prompted additional workup. Thyroid nodule resolved. Continues to have significant abdominal pain and bloating despite increase in Creon. Will ask GI to see and in meanwhile obtained Dotatate imaging. Dotatate PET/CT with Chromogranin A, serotonin, VIP, Gastrin, CBC, CMP completed early August 2023 show no sign of disease recurrence. PLAN: Continue CREON more regularly. CT Chest with CT Liver pelvis + labs in 1 year Labs same day. Include chromogranin A. RTC 1 week after - HPI: CASE HISTORY: Reverse Chronological Order 12/07/2023 - CT A/P: Bilateral nephrolithiasis without obstructive uropathy. No ureteralstone. Distal colonic diverticulosis. Moderate constipation. Fatty hepatomegaly. 11/30/2023 - CT Chest/Liver/Pelvis: Chest: Within the posterior base of the right lower lobe, there are stable linear and nodular opacities. Although nonspecific, these have been present on multiple prior studies and are decreased in extent when compared to a more remote comparison exam from 05/05/2023. These did not demonstrate tracer uptake on the recent dotatate PET CT. These are most likely to be infectious/inflammatory in etiology. Would advise continued close attention on imaging surveillance. No new or enlarging pulmonary nodules. No significant thoracic adenopathy. L/P: No evidence of metastatic disease in the abdomen or pelvis. Mild to moderate hepatic steatosis. Small nonobstructing right renal calculi. 08/10/2023 - PET/CT: No Dotatate avid neoplastic process. 07/20/2023 - CT Chest: Patchy opacities and reticulonodular opacities in right lower lobe, most likely infectious/inflammatory in etiology, decreased since 05/05/23. Consider follow-up to complete resolution. No evidence of new intrathoracic abnormalities since 05/05/23. 06/30/2023 - US Thyroid: 5 mm thyroid nodule 06/10/2023 - Screening Mammogram: BIRADS 1 - Negative 04/19/2023 - CT A/P: Stable CT examination of the abdomen and pelvis. No substantial intra-abdominal or pelvic lymphadenopathy is appreciated. Incidental note is again made of right-sided nonobstructive nephrolithiasis. Newly apparent right lower lobe airspace opacities, likely infectious/inflammatory in nature, correlation with follow-up examinations is recommended to assess for clearing. 07/06/2021 - CT A/P: No acute abdominal or pelvic abnormality. Mild biliary dilatation, likely physiologic and related to cholecystectomy. Right nephrolithiasis. 06/12/2019 - CT CAP: Chest: Stable CT of the chest. Unchanged appearance of right lower lobe nodular opacities measuring up to 5 mm. No new or enlarging nodules are seen. No evidence of bulky intrathoracic adenopathy. A/P: Overall stable CT of the abdomen and pelvis. No gross gastric mass is visualized. No evidence of bulky retroperitoneal or mesenteric adenopathy. Nonobstructing 1-2 mm calculi in the right kidney. Mild urothelial thickening involving the proximal right ureter, nonspecific. This may be infectious or inflammatory in nature. Alternatively, this could also be due to a recently passed calculus. Correlate clinically. 11/30/2018 - CT CAP: Chest: Several subcentimeter right-sided pulmonary nodules are identified, largest measuring 4-5 mm. The patient's history, correlation with follow-up examination in 3-6 months is recommended to assess for stability. No substantial intrathoracic adenopathy is identified. A/P: Several subcentimeter retroperitoneal lymph nodes are identified, none of which appear pathologically enlarged. Given the patient's history, correlation with a follow-up study to assess for stability is recommended. Postoperative changes involving the abdomen and pelvis as above. Updated Visi (more content not included)... Normal [facility] Alanine aminotransferase [En zymatic activity/volume] in Serum or PlasmaOrdered By: Kaiden Myers on 12-07-2023 ALT [Catalytic activity/Vol] 22 U/L Normal 7-52 [facility] Comment on above: Performed By: #### B MP, CBC, LIPASE, HEPATIC #### [facility] [address] [place] [address] [place] Albumin [Mass/volume] in Ser um or Plasma by Bromocresol green (BCG) dye binding methoOrdered By: Kaiden Myers on 12-07-2023 Albumin BCG dye [Mass/Vol] 4.6 g/dL 3.5-5.7 [facility] Alkaline phosphatase [Enzyma tic activity/volume] in Serum or PlasmaOrdered By: Kaiden Myers on 12-07-2023 ALP [Catalytic activity/Vol] 54 U/L Normal 34-104 [facility] Comment on above: Performed By: #### B MP, CBC, LIPASE, HEPATIC #### [facility] [address] Aspartate aminotransferase [ Enzymatic activity/volume] in Serum or PlasmaOrdered By: Kaiden Myers on 12-07-2023 AST [Catalytic activity/Vol] 35 U/L Normal 13-39 [facility] Comment on above: Performed By: #### B MP, CBC, LIPASE, HEPATIC #### [facility] [address] [place] [address] Automated basophil %Ordered By: Kaiden Myers on 12-07-2023 Basophils/100 WBC (Bld) 0.6 % Normal . [facility] Comment on above: Performed By: #### B MP, CBC, LIPASE, HEPATIC #### [address] Automated basophil countOrde red By: Kaiden Myers on 12-07-2023 Basophils (Bld) [#/Vol] 0.0 10*3/uL Normal 0.0-0.2 [facility] Comment on above: Result Comment: PERF ORMED BY: [place] [address] PATHOLOGIST POWER STATION OPERATOR ISMAEL WILKINSON M.D. Performed By: #### B MP, CBC, LIPASE, HEPATIC #### [address] Automated blood monocyte cou ntOrdered By: Kadien Myers on 12-07-2023 Monocytes (Bld) [#/Vol] 0.4 10*3/uL Normal 0.0-0.8 [facility] Comment on above: Performed By: #### B MP, CBC, LIPASE, HEPATIC #### [facility] [address] Automated eosinophil %Ordere d By: Kaiden Myers on 12-07-2023 Eosinophils/100 WBC (Bld) 2.9 % Normal . [facility] Comment on above: Performed By: #### B MP, CBC, LIPASE, HEPATIC #### [facility] [address] Automated eosinophil countOr dered By: Kaiden Myers on 12-07-2023 Eosinophils (Bld) [#/Vol] 0.2 10*3/uL Normal 0.0-0.45 [facility] Comment on above: Performed By: #### B MP, CBC, LIPASE, HEPATIC #### [address] Automated monocyte %Ordered By: Kaiden Myers on 12-07-2023 Monocytes/100 WBC (Bld) 7.1 % Normal . [facility] Comment on above: Performed By: #### B MP, CBC, LIPASE, HEPATIC #### [address] Automated neutrophil %Ordere d By: Kaiden Myers on 12-07-2023 Neutrophils/100 WBC (Bld) 54.5 % Normal . [facility] Comment on above: Performed By: #### B MP, CBC, LIPASE, HEPATIC #### [facility] [address] [place] [address] Bacteria [Presence] in Urine by AutomatedOrdered By: Kaiden Myers on 12-07-2023 Bacteria Auto Ql (U) Rare [HPF] None Seen [facility] Basic Metabolic Panelon 11-08 Creatinine Clr Calc Pharmacy 92.18 Normal [facility] Comment on above: Performed By: #### B MP, CBC, LIPASE, HEPATIC #### [address] GFR/1.73 sq M.predicted MDRD (S/P/Bld) [Vol rate/Area] mL/min/{1.73_m2} Normal [facility] Comment on above: Performed By: #### B MP, CBC, LIPASE, HEPATIC #### [facility] [address] [place] [address] Bilirubin Test strip Ql (U)O rdered By: Kaiden Myers on 12-07-2023 Bilirubin Ql (U) Negative Negative [facility] Bilirubin.direct [Mass/volum e] in Serum or PlasmaOrdered By: Kaiden Myers on 12-07-2023 Bilirubin.direct [Mass/Vol] 0.00 mg/dL Low 0.03-0.18 [facility] Comment on above: If the DBIL is less than 0.1, IBIL is not able to becalculated. Bilirubin.total [Mass/volume ] in Serum or PlasmaOrdered By: Kaiden Myers on 12-07-2023 Bilirubin [Mass/Vol] 0.3 mg/dL Normal 0.3-1.0 [facility] Comment on above: Performed By: #### B MP, CBC, LIPASE, HEPATIC #### [address] abdomen pelvis wo conon 0 12-07-2023 CT abdomen pelvis wo con [facility] [place] [address] CT Scan Report Signed Patient: Hank Liu MR#: [id number] 30 : 1970 Acct:[id number] Age/Sex: 53 / F ADM Date: 12/07/23 Loc: ER Room: Type: [facility] ER Attending Dr: Copies to: Kaiden Myers DO Ordering Provider: Kaiden Myers DO Date of Service: 12/07/23 CT/CT abdomen pelvis wo con: Abdominal Pain CT Abdomen and Pelvis withoutcontrast TECHNIQUE: Axial imaging with 2-D reconstruction. . The CT exam was performed using one or more the following dose reduction techniques: Automated exposure control, adjustment of the MA and/or Kv according to patient size, or use of the iterative reconstruction technique. COMPARISON: 06/09/23 History: Left-sided abdominal pain. Hernia pain. History of duodenal cancer. Stomach cancer. Partial gastrectomy. LIMITATIONS: None LOWER THORAX Unremarkable LIVER: Hepatic steatosis with mild hepatomegaly. GALLBLADDER: Cholecystectomy clips identified. BILE DUCTS: No dilatation SPLEEN: Unremarkable PANCREAS: Unremarkable ADRENAL GLANDS: Unremarkable KIDNEYS:Bilateral nephrolithiasis measuring up to 4 mm. No obstructive uropathy. No ureteral stone. AORTA: No abdominal aortic aneurysm identified. Mild atherosclerosis. RETROPERITONEUM: No significant retroperitoneal abnormalities identified. MESENTERY:Unremarkable SMALL BOWEL: The small bowel loops are nondistended. APPENDIX: The appendix is normal. COLON: Moderate constipation . Distal colonic diverticulosis. URINARY BLADDER: Urinary bladder is unremarkable. REPRODUCTIVE SYSTEM: The uterus is absent. PNEUMOPERITONEUM: None PERITONEAL FLUID:None BONY STRUCTURES: Extensive L3-4 spondylosis. Extensive L5-S1 spondylosis. No acute bony findings. ABDOMINAL WALL: Unremarkable CT/CT abdomen pelvis wo con IMPRESSION: Bilateral nephrolithiasis without obstructive uropathy. No ureteral stone. Distal colonic diverticulosis. Moderate constipation. Fatty hepatomegaly. Impression dictated by: Trey Ford M.D.12/07/2023 3:09 PM Dictation Location: [place] [address] Transcribed By: [facility] 12/07/23 1509 Dictated By: Trey Ford DO 12/07/23 1458 Signed By: 12/07/23 1509 Normal [facility] Calcium [Mass/volume] in Ser um or PlasmaOrdered By: Kaiden Myers on 12-07-2023 Calcium [Mass/Vol] 9.6 mg/dL Normal 8.6-10.3 [facility] Comment on above: Performed By: #### B MP, CBC, LIPASE, HEPATIC #### [facility] [address] Carbon dioxide, total [Moles /volume] in Serum or PlasmaOrdered By: Kaiden Myers on 12-07-2023 CO2 [Moles/Vol] 26.6 mmol/L Normal 21.0-31.0 [facility] Comment on above: Performed By: #### B MP, CBC, LIPASE, HEPATIC #### [facility] [address] Chloride [Moles/volume] in S samson or PlasmaOrdered By: Kaiden Myers on 12-07-2023 Chloride [Moles/Vol] 108 mmol/L High 98-107 [facility] Comment on above: Performed By: #### B MP, CBC, LIPASE, HEPATIC #### [address] Color of Urine by AutoOrdere d By: Kaiden Myers on 12-07-2023 Color (U) Light-yellow Normal Yellow [facility] Comment on above: Order Comment: Name Collection Type:: Clean-Voided Midstream Performed By: #### A DDONUAPLUS #### [address] Complete Blood Count Auto Di ffon 12-07-2023 Mean Corpuscular HGB Conc 33.0 g/dL Normal 32.0-35.0 [facility] Comment on above: Performed By: #### B MP, CBC, LIPASE, HEPATIC #### [place] [address] [place] Monocytes/100 WBC (Bld) 17.75 % Normal 0.00-20.00 [facility] Comment on above: Performed By: #### B MP, CBC, LIPASE, HEPATIC #### [address] NRBC% 0.1 /100{WBC} Normal 0-0.5 [facility] Comment on above: Performed By: #### B MP, CBC, LIPASE, HEPATIC #### [address] Creatinine [Mass/volume] in Serum or PlasmaOrdered By: Kaiden Myers on 12-07-2023 Creatinine [Mass/Vol] 0.73 mg/dL Normal 0.60-1.20 [facility] Comment on above: Performed By: #### B MP, CBC, LIPASE, HEPATIC #### [place] [address] [place] Dipstick and Microscopicon 0 12-07-2023 Bacteria,Urine Rare Normal None Seen [facility] Comment on above: Order Comment: Name Collection Type:: Clean-Voided Midstream Performed By: #### A DDONUAPLUS #### [facility] [address] [place] [id number] [place] Bilirubin,Urine Negative Normal Negative [facility] Comment on above: Order Comment: Name Collection Type:: Clean-Voided Midstream Performed By: #### A DDONUAPLUS #### [facility] [address] [place] [id number] [place] Glucose Ql (U) Normal Normal Normal [facility] Comment on above: Order Comment: Name Collection Type:: Clean-Voided Midstream Performed By: #### A DDONUAPLUS #### [place] [address] [place] Hyaline Casts,Urine None Normal 0-8 [facility] Comment on above: Order Comment: Name Collection Type:: Clean-Voided Midstream Performed By: #### A DDONUAPLUS #### [place] [address] [place] Mucus,Urine Rare Normal [facility] Comment on above: Order Comment: Name Collection Type:: Clean-Voided Midstream Result Comment: PERF ORMED BY: [place] [address] PATHOLOGIST POWER STATION OPERATOR ISMAEL WILKINSON M.D. Performed By: #### A DDONUAPLUS #### [place] [id number] [place] Nitrite,Urine Negative Normal Negative [facility] Comment on above: Order Comment: Name Collection Type:: Clean-Voided Midstream Performed By: #### A DDONUAPLUS #### [place] [id number] [place] Occult Blood,Urine Trace High Negative [facility] Comment on above: Order Comment: Name Collection Type:: Clean-Voided Midstream Result Comment: PERF ORMED BY: [place] [address] PATHOLOGIST POWER STATION OPERATOR ISMAEL WILKINSON M.D. Performed By: #### A DDONUAPLUS #### [place] [id number] [place] Protein,Urine Negative Normal Negative [facility] Comment on above: Order Comment: Name Collection Type:: Clean-Voided Midstream Performed By: #### A DDONUAPLUS #### [place] [address] [place] RBC,Urine 1-2 Normal 0-4 [facility] Comment on above: Order Comment: Name Collection Type:: Clean-Voided Midstream Performed By: #### A DDONUAPLUS #### [place] [address] [place] Specificy [place],Urine 1.019 Normal 1.00 1-1.03 0 [facility] Comment on above: Order Comment: Name Collection Type:: Clean-Voided Midstream Performed By: #### A DDONUAPLUS #### [address] Squamous Epithelial Cell,Urine 1-2 Normal 0-2 [facility] Comment on above: Order Comment: Name Collection Type:: Clean-Voided Midstream Performed By: #### A DDONUAPLUS #### [place] [address] [place] Urobilinogen,Urine Normal Normal Normal [facility] Comment on above: Order Comment: Name Collection Type:: Clean-Voided Midstream Performed By: #### A DDONUAPLUS #### [place] [address] [place] WBC,Urine 3-4 Normal 0-4 [facility] Comment on above: Order Comment: Name Collection Type:: Clean-Voided Midstream Performed By: #### A DDONUAPLUS #### [place] [address] [place] Epithelial cells.squamous [# /area] in Urine sediment by Automated countOrdered By: Kaiden Myers on 12-07-2023 Epithelial cells.squamous Auto (Urine sed) [#/Area] 1-2 [HPF] 0-2 [facility] Erythrocyte distribution wid th [Ratio] by Automated countOrdered By: Kaiden Myers on 12-07-2023 Erythrocyte distribution width (RBC) [Ratio] 14.2 % Normal 11.9-15.3 [facility] Comment on above: Performed By: #### B MP, CBC, LIPASE, HEPATIC #### [facility] [address] Erythrocytes [#/area] in Uri ne sediment by Automated countOrdered By: Kaiden Myers on 12-07-2023 RBC Auto (Urine sed) [#/Area] 1-2 [HPF] 0-4 [facility] Erythrocytes [#/volume] in B lood by Automated countOrdered By: Kaiden Myers on 12-07-2023 RBC (Bld) [#/Vol] 4.57 10*6/uL Normal 3.60-5.00 [facility] Comment on above: Performed By: #### B MP, CBC, LIPASE, HEPATIC #### [facility] [address] Glucose [Mass/volume] in Ser um or PlasmaOrdered By: Kaiden Myers on 12-07-2023 Glucose [Mass/Vol] 92 mg/dL Normal 70-100 [facility] Comment on above: ADA recommended refe rence rangeRandom Glucose Reference Range is dependent on time and content of last meal. Glucose of more than 200 mg/dL in a nonstressed, ambulatory subject supports the diagnosis of Diabetes Mellitus. Result Comment: [place] om Glucose Reference Range is dependent on time and content of last meal. Glucose of more than 200 mg/dL in a nonstressed, ambulatory subject supports the diagnosis of Diabetes Mellitus. ADA recommended reference range Performed By: #### B MP, CBC, LIPASE, HEPATIC #### [facility] [address] Glucose [Mass/volume] in Uri ne by Test stripOrdered By: Kaiden Myers on 12-07-2023 Glucose Test strip (U) [Mass/Vol] Normal mg/dL Normal [facility] Hematocrit [Volume Fraction] of Blood by Automated countOrdered By: Kaiden Myers on 12-07-2023 Hematocrit (Bld) [Volume fraction] 38.7 % Normal 34.0-46.4 [facility] Comment on above: Performed By: #### B MP, CBC, LIPASE, HEPATIC #### [address] Hemoglobin Test strip Ql (U) Ordered By: Kaiden Myers on 12-07-2023 Hemoglobin Ql (U) Trace High Negative [facility] Hemoglobin [Mass/volume] in BloodOrdered By: Kaiden Myers on 12-07-2023 Hemoglobin (Bld) [Mass/Vol] 12.8 g/dL Normal 11.8-15.4 [facility] Comment on above: Performed By: #### B MP, CBC, LIPASE, HEPATIC #### [address] Hepatic Panelon 12-07-2023 Albumin [Mass/Vol] 4.6 g/dL Normal 3.5-5.7 [facility] Comment on above: Performed By: #### B MP, CBC, LIPASE, HEPATIC #### [address] Bilirubin,Indirect 0.3 mg/dL Normal [facility] Comment on above: Performed By: #### B MP, CBC, LIPASE, HEPATIC #### [address] Bilirubin.indirect [Mass/Vol] 0.00 mg/dL Low 0.03-0.18 [facility] Comment on above: Result Comment: If t he DBIL is less than 0.1, IBIL is not able to be calculated. Performed By: #### B MP, CBC, LIPASE, HEPATIC #### [address] Hyaline casts [#/area] in Ur ine sediment by Automated countOrdered By: Kaiden Myers on 12-07-2023 Hyaline casts Auto (Urine sed) [#/Area] None [LPF] 0-8 [facility] Ketones [Presence] in Urine by Test stripOrdered By: Kaiden Myers on 12-07-2023 Ketones Ql (U) Negative Normal Negative [facility] Comment on above: Order Comment: Name Collection Type:: Clean-Voided Midstream Performed By: #### A DDONUAPLUS #### [address] [place] [address] [place] Leukocyte esterase [Presence ] in Urine by Test stripOrdered By: Kaiden Myers on 12-07-2023 Leukocyte esterase Test strip Ql (U) 2+ High Negative [facility] Comment on above: Order Comment: Name Collection Type:: Clean-Voided Midstream Performed By: #### A DDONUAPLUS #### [facility] [address] [place] [address] [place] Leukocytes [#/area] in Urine sediment by Automated countOrdered By: Kaiden Myers on 12-07-2023 WBC Auto (Urine sed) [#/Area] 3-4 [HPF] 0-4 [facility] Leukocytes [#/volume] correc thor for nucleated erythrocytes in Blood by Automated counOrdered By: Kaiden Myers on 12-07-2023 WBC corrected for nucl RBC Auto (Bld) [#/Vol] 6.3 10*3/uL 3.8-11.6 [facility] Leukocytes [#/volume] in Blo od by Automated countOrdered By: Kaiden Myers on 12-07-2023 WBC (Bld) [#/Vol] 6.3 10*3/uL Normal 3.8-11.6 [facility] Comment on above: Performed By: #### B MP, CBC, LIPASE, HEPATIC #### [facility] [address] [place] [address] [place] Lipase [Enzymatic activity/v olume] in Serum or PlasmaOrdered By: Kaiden Myers on 12-07-2023 Lipase [Catalytic activity/Vol] 30.0 U/L Normal 11.0-82.0 [facility] Comment on above: Result Comment: PERF ORMED BY: [place] [address] PATHOLOGIST POWER STATION OPERATOR ISMAEL WILKINSON M.D. Performed By: #### B MP, CBC, LIPASE, HEPATIC #### [place] [address] [place] Lymphocytes [#/volume] in Bl ood by Automated countOrdered By: Kaiden Myers on 12-07-2023 Lymphocytes (Bld) [#/Vol] 2.2 10*3/uL Normal 1.00-4.8 [facility] Comment on above: Performed By: #### B MP, CBC, LIPASE, HEPATIC #### [address] Lymphocytes/100 leukocytes i n Blood by Automated countOrdered By: Kaiden Myers on 12-07-2023 Lymphocytes/100 WBC (Bld) 34.9 % Normal . [facility] Comment on above: Performed By: #### B MP, CBC, LIPASE, HEPATIC #### [address] MCH [Entitic mass] by Automa thor countOrdered By: Kaiden Myers on 12-07-2023 MCH (RBC) [Entitic mass] 27.9 pg Normal 24.7-34.3 [facility] Comment on above: Performed By: #### B MP, CBC, LIPASE, HEPATIC #### [facility] [address] [place] [address] MCHC Auto (RBC) [Mass/Vol]Or dered By: Kaiden Myers on 12-07-2023 MCHC (RBC) [Mass/Vol] 33.0 g/dL 32.0-35.0 [facility] MCV [Entitic volume] by Auto mated countOrdered By: Kaiden Myers on 12-07-2023 MCV (RBC) [Entitic vol] 84.6 fL Normal 80-100 [facility] Comment on above: Performed By: #### B MP, CBC, LIPASE, HEPATIC #### [address] Monocyte distribution width [Entitic volume] in Blood by AutomatedOrdered By: Kaiden Myers on 12-07-2023 Monocyte distribution width Auto (Bld) [Entitic vol] 17.75 % 0.00-20.00 [facility] Mucus [Presence] in Urine by AutomatedOrdered By: Kaiden Myers on 12-07-2023 Mucus Auto Ql (U) Rare [LPF] [facility] Neutrophils [#/volume] in Bl ood by Automated countOrdered By: Kaiden Myers on 12-07-2023 Neutrophils (Bld) [#/Vol] 3.4 10*3/uL Normal 1.8-7.7 [facility] Comment on above: Performed By: #### B MP, CBC, LIPASE, HEPATIC #### [facility] [address] Nitrite Test strip Ql (U)Ord ered By: Kaiden Myers on 12-07-2023 Nitrite Ql (U) Negative Negative [facility] No Panel InformationOrdered By: Kaiden Myers on 12-07-2023 Estimated GFR (CKD-EPI) > 60.0 mL/Min [facility] Creatinine Clearance (Chem 92.18 [facility] Nucleated erythrocytes [Pres ence] in Blood by Automated countOrdered By: Kaiden Myers on 12-07-2023 Nucleated RBC Auto Ql (Bld) 0.1 /100{WBC} 0-0.5 [facility] Platelet mean volume [Entiti c volume] in Blood by Automated countOrdered By: Kaiden Myers on 12-07-2023 Platelet mean volume (Bld) [Entitic vol] 7.4 fL Normal 6.3-10.7 [facility] Comment on above: Performed By: #### B MP, CBC, LIPASE, HEPATIC #### [address] Platelets [#/volume] in Bloo d by Automated countOrdered By: Kaiden Myers on 12-07-2023 Platelets (Bld) [#/Vol] 259 10*3/uL Normal 150-450 [facility] Comment on above: Performed By: #### B MP, CBC, LIPASE, HEPATIC #### [facility] [address] [place] [address] [place] Potassium [Moles/volume] in Serum or PlasmaOrdered By: Kaiden Myers on 12-07-2023 Potassium [Moles/Vol] 3.8 mmol/L Normal 3.5-5.1 [facility] Comment on above: Performed By: #### B MP, CBC, LIPASE, HEPATIC #### [facility] [address] [place] [address] [place] Protein Test strip (U) [Mass /Vol]Ordered By: Kaiden Myers on 12-07-2023 Protein (U) [Mass/Vol] Negative Negative [facility] Protein [Mass/volume] in Ser um or PlasmaOrdered By: Kaiden Myers on 12-07-2023 Protein [Mass/Vol] 7.3 g/dL Normal 6.4-8.9 [facility] Comment on above: Performed By: #### B MP, CBC, LIPASE, HEPATIC #### [facility] [address] Serum globulin measurement b y calculation (mass/volume)Ordered By: Kaiden Myers on 12-07-2023 Globulin (S) [Mass/Vol] 2.7 g/dL Normal [facility] Comment on above: Performed By: #### B MP, CBC, LIPASE, HEPATIC #### [facility] [address] [place] [address] Serum or plasma albumin/glob ulin mass ratioOrdered By: Kaiden Myers on 12-07-2023 Albumin/Globulin [Mass ratio] 1.7 {ratio} Normal [facility] Comment on above: Performed By: #### B MP, CBC, LIPASE, HEPATIC #### [facility] [address] [place] [address] Serum or plasma anion gap de terminationOrdered By: Kaiden Myers on 12-07-2023 Anion gap [Moles/Vol] 8.2 mmol/L Normal 6.0-15.0 [facility] Comment on above: Performed By: #### B MP, CBC, LIPASE, HEPATIC #### [facility] [address] [place] [address] Serum or plasma non-glucuron idated bilirubin measurement (mass/volume)Ordered By: Kaiden Myers on 12-07-2023 Bilirubin.indirect [Mass/Vol] 0.3 mg/dL [facility] Sodium [Moles/volume] in Ser um or PlasmaOrdered By: Kaiden Myers on 12-07-2023 Sodium [Moles/Vol] 139 mmol/L Normal 136-145 [facility] Comment on above: Performed By: #### B MP, CBC, LIPASE, HEPATIC #### [address] Specific gravity Test strip (U) [Rel density]Ordered By: Kaiden Myers on 12-07-2023 Specific gravity (U) [Rel density] 1.019 1.001-1.03 0 [facility] Urea nitrogen [Mass/volume] in Serum or PlasmaOrdered By: Kaiden Myers on 12-07-2023 Urea nitrogen [Mass/Vol] 11 mg/dL Normal 7-25 [facility] Comment on above: Performed By: #### B MP, CBC, LIPASE, HEPATIC #### [address] Urine appearanceOrdered By: Kaiden Myers on 12-07-2023 Appearance (U) Clear Normal Clear [facility] Comment on above: Order Comment: Name Collection Type:: Clean-Voided Midstream Performed By: #### A DDONUAPLUS #### [address] Urobilinogen Test strip (U) [Mass/Vol]Ordered By: Kaiden Myers on 12-07-2023 Urobilinogen (U) [Mass/Vol] Normal mg/dL Normal [facility] pH of Urine by Test stripOrd ered By: Kaiden Myers on 12-07-2023 pH (U) 5.0 [pH] Normal 5.0-9.0 [facility] Comment on above: Order Comment: Name Collection Type:: Clean-Voided Midstream Performed By: #### A DDONUAPLUS #### [address] CNPNon 12-05-2023 CNPN Telephone (myDrugCostsKARTHIK) -------- HANK ILU ([id number]) 1970 F Date Time Provider Department 12/05/23 ANNEMARIE JUDD During your visit today, we recorded the following information about you: Tonio Meyer MA 12/05/2023 4:35 PM Signed If needed, place lab orders for appointment scheduled 12/07. Tonio Meyer MA Allergies As of Date: 12/05/2023 Noted Allergy Reaction IODINE 04/18/2017 4 - Hives 10 - Anaphylaxis 12 - Shortness of Breath Comments: Other reaction(s): anaphylaxis Other reaction(s): Unknown ATORVASTATIN 05/25/2021 14 - Other: See Comments Comments: Other Reaction(s): arthralgia/myalgia BUPROPION 05/10/2023 14 - Other: See Comments Comments: Other Reaction(s): Other: See Comments IODINATED CONTRAST MEDIA 11/29/2018 4 - Hives 14 - Other: See Comments 12 - Shortness of Breath Comments: Other reaction(s): Difficulty Breathing Other Reaction(s): Difficulty Breathing, Other: See Comments Other reaction(s): Difficulty Breathing MIRTAZAPINE 05/25/2021 4 - Hives 14 - Other: See Comments NALBUPHINE 04/18/2017 12 - Shortness of Breath 14 - Other: See Comments 17 - Myalgia Comments: Other Reaction(s): muscle spams, and breathing, Unknown NUBAIN (NALBUPHINE HCL) 04/18/2017 16 - Unknown Date Reviewed: 08/19/2023 Reviewed by: Heather Mccain MA - Fully Assessed Reason for Visit: Lab Orders [3768] Prescriptions as of 01/23/2024 - rosuvastatin (CRESTOR) 40 mg tablet Take 40 mg by mouth daily at bedtime. - traZODone (DESYREL) 100 mg tablet Take 100 mg by mouth daily at bedtime. - rOPINIRole (REQUIP) 0.25 mg tablet Take 0.5 mg by mouth once daily as needed. 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 No evidence of metastatic disease in the abdomen or pelvis. 2. Mild to moderate hepatic steatosis. 3. Small nonobstructing right renal calculi. Transcribe Date/Time: Nov 30 2023 12:56P Dictated by: LUIS FERNANDO HARTMANN MD This examination was interpreted and the report reviewed and electronically signed by: LUIS FERNANDO HARTMANN MD on Nov 30 2023 1:10PM EST Thank you for allowing us to participate in the care of your patient. Should there be any questions regarding this interpretation, please call [phone]. If you are unable to reach us at the number above, please feel free to contact [facility]iology at [phone]. DIVISION OF RADIOLOGY * * *Final Report* * * DATE OF EXAM: Nov 30 2023 10:54AM [facility] 0550 - CT LIVER/PELVIS W IVCON / PROCEDURE REASON: Malignant carcinoid tumor of duodenum (HCC) * * * * Physician Interpretation * * * * RESULT: EXAMINATION: CT ABDOMEN (LIVER) AND PELVIS WITH IV CONTRAST CLINICAL HISTORY: Malignant carcinoid tumor of the duodenum. TECHNIQUE: Multiphase imaging of the abdomen was performed utilizing IV contrast. Venous phase imaging was continued through the pelvis. Contrast: IV: 150 ml of Omnipaque 300 Oral: None CT Radiation dose: Integrated Dose-length product (DLP) for this visit = 2847 mGy*cm. CT Dose Reduction Employed: Automated exposure control (AEC) COMPARISON: Dotatate PET CT from 08/10/[address] of the abdomen pelvis with contrast from 04/19/2023. RESULT: Liver: Lres-he-jidxussx hepatic steatosis. No suspicious hepatic masses detected. Biliary: Cholecystectomy. Mild dilatation of a left intrahepatic biliary duct which is unchanged when compared to the prior exam. Spleen: Small nonspecific hypodense lesion along the inferior spleen which may represent a cyst or hemangioma Pancreas: No mass or duct dilation. Adrenals: No mass. Kidneys: Nonobstructing right renal calculi, measuring up to 4 mm in size. Subcentimeter hypodense lesion along the lateral mid pole of the right kidney which is too small to characterize but likely represents a cyst. GI tract: No dilation or wall thickening. Lymph nodes: No abdominal lymphadenopathy. Mesentery/Peritoneum: ascites. No mass. Pelvis: Hysterectomy. Bones/Soft Tissues: Degenerative changes. Lower thorax: A chest CT performed will be reported separately. Localizer images: No additional findings. DIVISION OF RADIOLOGY Provider, [facility] - 11/30/2023 * * *Final Report* * * DATE OF EXAM: Nov 30 2023 10:54AM [facility] 0550 - CT LIVER/PELVIS W IVCON / PROCEDURE REASON: Malignant carcinoid tumor of duodenum (HCC) * * * * Physician Interpretation * * * * RESULT: EXAMINATION: CT ABDOMEN (LIVER) AND PELVIS WITH IV CONTRAST CLINICAL HISTORY: Malignant carcinoid tumor of the duodenum. TECHNIQUE: Multiphase imaging of the abdomen was performed utilizing IV contrast. Venous phase imaging was continued through the pelvis. Contrast: IV: 150 ml of Omnipaque 300 Oral: None CT Radiation dose: Integrated Dose-length product (DLP) for this visit = 2847 mGy*cm. CT Dose Reduction Employed: Automated exposure control (AEC) COMPARISON: Dotatate PET CT from 08/10/[address] of the abdomen pelvis with contrast from 04/19/2023. RESULT: Liver: Tnml-yq-xmovwimg hepatic steatosis. No suspicious hepatic masses detected. Biliary: Cholecystectomy. Mild dilatation of a left intrahepatic biliary duct which is unchanged when compared to the prior exam. Spleen: Small nonspecific hypodense lesion along the inferior spleen which may represent a cyst or hemangioma Pancreas: No mass or duct dilation. Adrenals: No mass. Kidneys: Nonobstructing right renal calculi, measuring up to 4 mm in size. Subcentimeter hypodense lesion along the lateral mid pole of the right kidney which is too small to characterize but likely represents a cyst. GI tract: No dilation or wall thickening. Lymph nodes: No abdominal lymphadenopathy. Mesentery/Peritoneum: ascites. No mass. Pelvis: Hysterectomy. Bones/Soft Tissues: Degenerative changes. Lower thorax: A chest CT performed will be reported separately. Localizer images: No additional findings. IMPRESSION IMPRESSION: 1. No evidence of metastatic disease in the abdomen or pelvis. 2. Mild to moderate hepatic steatosis. 3. Small nonobstructing right renal calculi. Transcribe Date/Time: Nov 30 2023 12:56P Dictated by: LUIS FERNANDO HARTMANN MD This examination was interpreted and the report reviewed and electronically signed by: LUIS FERNANDO HARTMANN MD on Nov 30 2023 1:10PM EST Thank you for allowing us to participate in the care of your patient. Should there be any questions regarding this interpretation, please call [phone]. If you are unable to reach us at the number above, please feel free to contact [facility]Radiology at [phone]. [facility] CT CHEST W IVCONon CT CHEST W IVCON * * *Final Report* * * DATE OF EXAM: Nov 30 2023 10:54AM [facility] 0539 - CT CHEST W IVCON / PROCEDURE REASON: Malignant carcinoid tumor of duodenum (HCC) * * * * Physician Interpretation * * * * RESULT: EXAMINATION: CHEST CT WITH CONTRAST CLINICAL HISTORY: Neuroendocrine tumor of the duodenum. Technique: Spiral CT acquisition of the chest from the thoracic inlet to the upper abdomen following IV contrast. MQ: CTCW_6 Contrast: 150 mL Omnipaque [address] Radiation dose: Integrated Dose-length product (DLP) for this visit = 2847 mGy*cm CT Dose Reduction Employed: Automated exposure control (AEC) Comparison: Dotatate PET CT from 08/10/[address] without contrast from 07/22/2023 RESULT: Limitations: None. Lines, tubes, and devices: None. Lung parenchyma and airways: Within the posterior base of the right lower lobe, there are stable linear and nodular opacities. Although nonspecific, these have been present on multiple prior studies and are decreased in extent when compared to a more remote comparison exam from 05/05/2023. These did not demonstrate tracer uptake on the recent dotatate PET CT. These are most likely to be infectious/inflammatory in etiology. Would advise continued close attention on imaging surveillance. Benign calcified granuloma in the medial segment of the right middle lobe. Pleural space: No pleural effusion. No pleural thickening. Lower neck, lymph nodes, and mediastinum: No suspicious axillary, mediastinal, or hilar lymphadenopathy. Heart, pericardium, and thoracic vessels: Small pericardial effusion, similar to the prior exam. Mild to moderate coronary artery calcification. Bones and soft tissues: No destructive bone lesion. Chest wall is unremarkable. Upper abdomen: A CT of the abdomen and pelvis was performed and will be reported separately. Localizer images: No additional findings. IMPRESSION: 1. Within the posterior base of the right lower lobe, there are stable linear and nodular opacities. Although nonspecific, these have been present on multiple prior studies and are decreased in extent when compared to a more remote comparison exam from 05/05/2023. These did not demonstrate tracer uptake on the recent dotatate PET CT. These are most likely to be infectious/inflammatory in etiology. Would advise continued close attention on imaging surveillance. No new or enlarging pulmonary nodules. 2. No significant thoracic adenopathy. Transcribe Date/Time: Nov 30 2023 1:11P Dictated by: LUIS FERNANDO HARTMANN MD This examination was interpreted and the report reviewed and electronically signed by: LUIS FERNANDO HARTMANN MD on Nov 30 2023 1:28PM EST Thank you for allowing us to participate in the care of your patient. Should there be any questions regarding this interpretation, please call [phone]. If you are unable to reach us at the number above, please feel free to contact [facility] eRadiology at [phone]. [id number] Normal [facility] CT Chest W contrast Yvette IMPRESSION: 1. Within the posterior base of the right lower lobe, there are stable linear and nodular opacities. Although nonspecific, these have been present on multiple prior studies and are decreased in extent when compared to a more remote comparison exam from 05/05/2023. These did not demonstrate tracer uptake on the recent dotatate PET CT. These are most likely to be infectious/inflammatory in etiology. Would advise continued close attention on imaging surveillance. No new or enlarging pulmonary nodules. 2. No significant thoracic adenopathy. Transcribe Date/Time: Nov 30 2023 1:11P Dictated by: LUIS FERNANDO HARTMANN MD This examination was interpreted and the report reviewed and electronically signed by: LUIS FERNANDO HARTMANN MD on Nov 30 2023 1:28PM EST Thank you for allowing us to participate in the care of your patient. Should there be any questions regarding this interpretation, please call [phone]. If you are unable to reach us at the number above, please feel free to [facility] at [phone]. DIVISION OF RADIOLOGY * * *Final Report* * * DATE OF EXAM: Nov 30 2023 10:54AM [facility] 0539 - CT CHEST W IVCON / PROCEDURE REASON: Malignant carcinoid tumor of duodenum (HCC) * * * * Physician Interpretation * * * * RESULT: EXAMINATION: CHEST CT WITH CONTRAST CLINICAL HISTORY: Neuroendocrine tumor of the duodenum. Technique: Spiral CT acquisition of the chest from the thoracic inlet to the upper abdomen following IV contrast. MQ: CTCW_6 Contrast: 150 mL Omnipaque [address] Radiation dose: Integrated Dose-length product (DLP) for this visit = 2847 mGy*cm CT Dose Reduction Employed: Automated exposure control (AEC) Comparison: Dotatate PET CT from 08/10/[address] without contrast from 07/22/2023 RESULT: Limitations: None. Lines, tubes, and devices: None. Lung parenchyma and airways: Within the posterior base of the right lower lobe, there are stable linear and nodular opacities. Although nonspecific, these have been present on multiple prior studies and are decreased in extent when compared to a more remote comparison exam from 05/05/2023. These did not demonstrate tracer uptake on the recent dotatate PET CT. These are most likely to be infectious/inflammatory in etiology. Would advise continued close attention on imaging surveillance. Benign calcified granuloma in the medial segment of the right middle lobe. Pleural space: No pleural effusion. No pleural thickening. Lower neck, lymph nodes, and mediastinum: No suspicious axillary, mediastinal, or hilar lymphadenopathy. Heart, pericardium, and thoracic vessels: Small pericardial effusion, similar to the prior exam. Mild to moderate coronary artery calcification. Bones and soft tissues: No destructive bone lesion. Chest wall is unremarkable. Upper abdomen: A CT of the abdomen and pelvis was performed and will be reported separately. Localizer images: No additional findings. DIVISION OF RADIOLOGY Provider, [facility] - 11/30/2023 * * *Final Report* * * DATE OF EXAM: Nov 30 2023 10:54AM [facility] 0539 - CT CHEST W IVCON / PROCEDURE REASON: Malignant carcinoid tumor of duodenum (HCC) * * * * Physician Interpretation * * * * RESULT: EXAMINATION: CHEST CT WITH CONTRAST CLINICAL HISTORY: Neuroendocrine tumor of the duodenum. Technique: Spiral CT acquisition of the chest from the thoracic inlet to the upper abdomen following IV contrast. MQ: CTCW_6 Contrast: 150 mL Omnipaque [address] Radiation dose: Integrated Dose-length product (DLP) for this visit = 2847 mGy*cm CT Dose Reduction Employed: Automated exposure control (AEC) Comparison: Dotatate PET CT from 08/10/[address] without contrast from 07/22/2023 RESULT: Limitations: None. Lines, tubes, and devices: None. Lung parenchyma and airways: Within the posterior base of the right lower lobe, there are stable linear and nodular opacities. Although nonspecific, these have been present on multiple prior studies and are decreased in extent when compared to a more remote comparison exam from 05/05/2023. These did not demonstrate tracer uptake on the recent dotatate PET CT. These are most likely to be infectious/inflammatory in etiology. Would advise continued close attention on imaging surveillance. Benign calcified granuloma in the medial segment of the right middle lobe. Pleural space: No pleural effusion. No pleural thickening. Lower neck, lymph nodes, and mediastinum: No suspicious axillary, mediastinal, or hilar lymphadenopathy. Heart, pericardium, and thoracic vessels: Small pericardial effusion, similar to the prior exam. Mild to moderate coronary artery calcification. Bones and soft tissues: No destructive bone lesion. Chest wall is unremarkable. Upper abdomen: A CT of the abdomen and pelvis was performed and will be reported separately. Localizer images: No additional findings. IMPRESSION IMPRESSION: 1. Within the posterior base of the right lower lobe, there are stable linear and nodular opacities. Although nonspecific, these have been present on multiple prior studies and are decreased in extent when compared to a more remote comparison exam from 05/05/2023. These did not demonstrate tracer uptake on the recent dotatate PET CT. These are most likely to be infectious/inflammatory in etiology. Would advise continued close attention on imaging surveillance. No new or enlarging pulmonary nodules. 2. No significant thoracic adenopathy. Transcribe Date/Time: Nov 30 2023 1:11P Dictated by: LUIS FERNANDO HARTMANN MD This examination was interpreted and the report reviewed and electronically signed by: LUIS FERNANDO HARTMANN MD on Nov 30 2023 1:28PM EST Thank you for allowing us to participate in the care of your patient. Should there be any questions regarding this interpretation, please call [phone]. If you are unable to reach us at the number above, please feel free to contact [facility] eRadiology at [phone]. [facility] CT Chest W contrast IVOrdere d By: [facility] Provider on 11-30-2023 [facility] CT LIVER/PELVIS W IVCONon CT LIVER/PELVIS W IVCON * * *Final Repor t* * * DATE OF EXAM: Nov 30 2023 10:54AM [facility] 0550 - CT LIVER/PELVIS W IVCON / PROCEDURE REASON: Malignant carcinoid tumor of duodenum (HCC) * * * * Physician Interpretation * * * * RESULT: EXAMINATION: CT ABDOMEN (LIVER) AND PELVIS WITH IV CONTRAST CLINICAL HISTORY: Malignant carcinoid tumor of the duodenum. TECHNIQUE: Multiphase imaging of the abdomen was performed utilizing IV contrast. Venous phase imaging was continued through the pelvis. Contrast: IV: 150 ml of Omnipaque 300 Oral: None CT Radiation dose: Integrated Dose-length product (DLP) for this visit = 2847 mGy*cm. CT Dose Reduction Employed: Automated exposure control (AEC) COMPARISON: Dotatate PET CT from 08/10/[address] of the abdomen pelvis with contrast from 04/19/2023. RESULT: Liver: Cgzt-jf-cwwdclga hepatic steatosis. No suspicious hepatic masses detected. Biliary: Cholecystectomy. Mild dilatation of a left intrahepatic biliary duct which is unchanged when compared to the prior exam. Spleen: Small nonspecific hypodense lesion along the inferior spleen which may represent a cyst or hemangioma Pancreas: No mass or duct dilation. Adrenals: No mass. Kidneys: Nonobstructing right renal calculi, measuring up to 4 mm in size. Subcentimeter hypodense lesion along the lateral mid pole of the right kidney which is too small to characterize but likely represents a cyst. GI tract: No dilation or wall thickening. Lymph nodes: No abdominal lymphadenopathy. Mesentery/Peritoneum: ascites. No mass. Pelvis: Hysterectomy. Bones/Soft Tissues: Degenerative changes. Lower thorax: A chest CT performed will be reported separately. Localizer images: No additional findings. IMPRESSION: 1. No evidence of metastatic disease in the abdomen or pelvis. 2. Mild to moderate hepatic steatosis. 3. Small nonobstructing right renal calculi. Transcribe Date/Time: Nov 30 2023 12:56P Dictated by: LUIS FERNANDO HARTMANN MD This examination was interpreted and the report reviewed and electronically signed by: LUIS FERNANDO HARTMANN MD on Nov 30 2023 1:10PM EST Thank you for allowing us to participate in the care of your patient. Should there be any questions regarding this interpretation, please call [phone]. If you are unable to reach us at the number above, please feel free to contact [facility] eRadiology at [phone]. [id number] Normal [facility] No Panel Informationon 11-29 Radiology Study observation (narrative) Pradip murillo [facility] CBC W Auto Differential pane l (Bld)on 11-11-2023 Basophils (Bld) [#/Vol] 0.04 10*3/uL Normal <0.11 [facility] Comment on above: Order Comment: Speci men Type: BLOOD SPECIMENOrdering Facility: [facility] Address: [address] [place] [address] Performed By: #### 5 7021-8 ####[facility] LABCLIA [id number] [place] [address] Basophils/100 WBC (Bld) 0.7 % Normal C [facility] Comment on above: Order Comment: Speci men Type: BLOOD SPECIMENOrdering Facility: [facility] Address: [address] [place] [address] Performed By: #### 5 7021-8 ####[facility] LABCLIA [id number] [place] [address] Differential cell count method Nom (Bld) Auto Normal [facility] Comment on above: Order Comment: Speci men Type: BLOOD SPECIMENOrdering Facility: [facility] Address: [address] [place] [address] Performed By: #### 5 7021-8 ####[facility] LABCLIA [id number] [place] [address] Eosinophils (Bld) [#/Vol] 0.23 10*3/uL Normal <0.46 [facility] Comment on above: Order Comment: Speci men Type: BLOOD SPECIMENOrdering Facility: [facility] Address: [address] [place] [address] Performed By: #### 5 7021-8 ####[facility] LABCLIA [id number] [place] [address] Eosinophils/100 WBC (Bld) 4.3 % Normal [facility] Comment on above: Order Comment: Speci men Type: BLOOD SPECIMENOrdering Facility: [facility] Address: [address] [place] [address] Performed By: #### 5 7021-8 ####[facility] LABCLIA [id number] [place] [address] Erythrocyte distribution width (RBC) [Ratio] 13.9 % Normal 11.5-15.0 [facility] Comment on above: Order Comment: Speci men Type: BLOOD SPECIMENOrdering Facility: [facility] Address: [address] [place] [address] Performed By: #### 5 7021-8 ####[facility] LABCLIA [id number] [place] [address] Hematocrit (Bld) [Volume fraction] 39.2 % Normal 36.0-46.0 [facility] Comment on above: Order Comment: Speci men Type: BLOOD SPECIMENOrdering Facility: [facility] Address: [address] [place] [address] Performed By: #### 5 7021-8 ####[facility] LABCLIA [id number] [place] [address] Hemoglobin (Bld) [Mass/Vol] 12.8 g/dL Normal 11.5-15.5 [facility] Comment on above: Order Comment: Speci men Type: BLOOD SPECIMENOrdering Facility: [facility] Address: [address] [place] [address] Performed By: #### 5 7021-8 ####[facility] LABCLIA [id number] [place] [address] Immature granulocytes (Bld) [#/Vol] 10*3/uL Normal <0.10 [facility] Comment on above: Order Comment: Speci men Type: BLOOD SPECIMENOrdering Facility: [facility] Address: [address] [place] [address] Performed By: #### 5 7021-8 ####[facility] LABCLIA [id number] [place] [address] Immature granulocytes/100 WBC (Bld) 0.2 % Normal [facility] Comment on above: Order Comment: Speci men Type: BLOOD SPECIMENOrdering Facility: [facility] Address: [address] [place] [address] Performed By: #### 5 7021-8 ####[facility] LABCLIA [id number] [place] [address] Lymphocytes (Bld) [#/Vol] 1.95 10*3/uL Normal 1.00-4.00 [facility] Comment on above: Order Comment: Speci men Type: BLOOD SPECIMENOrdering Facility: [facility] Address: [address] [place] [address] Performed By: #### 5 7021-8 ####[facility] LABCLIA [id number] [place] [address] Lymphocytes/100 WBC (Bld) 36.5 % Normal [facility] Comment on above: Order Comment: Speci men Type: BLOOD SPECIMENOrdering Facility: [facility] Address: [address] [place] [address] Performed By: #### 5 7021-8 ####[facility] LABCLIA [id number] [place] [address] MCH (RBC) [Entitic mass] 28.0 pg Normal 26.0-34.0 [facility] Comment on above: Order Comment: Speci men Type: BLOOD SPECIMENOrdering Facility: [facility] Address: [address] [place] [address] Performed By: #### 5 7021-8 ####[facility] LABCLIA [id number] [place] [address] MCHC (RBC) [Mass/Vol] 32.7 g/dL Normal 30.5-36.0 [facility] Comment on above: Order Comment: Speci men Type: BLOOD SPECIMENOrdering Facility: [facility] Address: [address] [place] [address] Performed By: #### 5 7021-8 ####[facility] LABCLIA [id number] [place] [address] MCV (RBC) [Entitic vol] 85.8 fL Normal 80.0-100.0 C [facility] Comment on above: Order Comment: Speci men Type: BLOOD SPECIMENOrdering Facility: [facility] Address: [address] [place] [address] Performed By: #### 5 7021-8 ####[facility] LABCLIA [id number] [place] [address] Monocytes (Bld) [#/Vol] 0.44 10*3/uL Normal <0.87 [facility] Comment on above: Order Comment: Speci men Type: BLOOD SPECIMENOrdering Facility: [facility] Address: [address] [place] [address] Performed By: #### 5 7021-8 ####[facility] LABCLIA [id number] [place] [address] Monocytes/100 WBC (Bld) 8.2 % Normal [facility] Comment on above: Order Comment: Speci men Type: BLOOD SPECIMENOrdering Facility: [facility] Address: [address] [place] [address] Performed By: #### 5 7021-8 ####[facility] LABCLIA [id number] [place] [address] Neutrophils (Bld) [#/Vol] 2.67 10*3/uL Normal 1.45-7.50 [facility] Comment on above: Order Comment: Speci men Type: BLOOD SPECIMENOrdering Facility: [facility] Address: [address] [place] [address] Performed By: #### 5 7021-8 ####[facility] LABIA [id number] [place] [address] Neutrophils/100 WBC (Bld) 50.1 % Normal [facility] Comment on above: Order Comment: Speci men Type: BLOOD SPECIMENOrdering Facility: [facility] Address: [address] [place] [address] Performed By: #### 5 7021-8 ####[facility] LABCLIA [id number] [place] [address] Nucleated RBC (Bld) [#/Vol] 10*3/uL Normal <0.01 [facility] Comment on above: Order Comment: Speci men Type: BLOOD SPECIMENOrdering Facility: [facility] Address: [address] [place] [address] Performed By: #### 5 7021-8 ####[facility] LABCLIA [id number] [place] [address] Nucleated RBC/100 WBC (Bld) [Ratio] 0.0 /100 WBC Normal [facility] Comment on above: Order Comment: Speci men Type: BLOOD SPECIMENOrdering Facility: [facility] Address: [address] [place] [address] Performed By: #### 5 7021-8 ####[facility] LABCLIA [id number] [place] [address] Platelet mean volume (Bld) [Entitic vol] 9.2 fL Normal 9.0-12.7 [facility] Comment on above: Order Comment: Speci men Type: BLOOD SPECIMENOrdering Facility: [facility] Address: [address] [place] [address] Performed By: #### 5 7021-8 ####[facility] LABCLIA [id number] [place] [address] Platelets (Bld) [#/Vol] 231 10*3/uL Normal 150-400 [facility] Comment on above: Order Comment: Speci men Type: BLOOD SPECIMENOrdering Facility: [facility] Address: [address] [place] [address] Performed By: #### 5 7021-8 ####[facility] LABCLIA [id number] [place] [address] RBC (Bld) [#/Vol] 4.57 10*6/uL Normal 3.90-5.20 [facility] Comment on above: Order Comment: Speci men Type: BLOOD SPECIMENOrdering Facility: [facility] Address: [address] [place] [address] Performed By: #### 5 7021-8 ####[facility] LABCLIA [id number] [place] [address] WBC (Bld) [#/Vol] 5.34 10*3/uL Normal 3.70-11.00 [facility] Comment on above: Order Comment: Speci men Type: BLOOD SPECIMENOrdering Facility: [facility] Address: [address] [place] [address] Performed By: #### 5 7021-8 ####[facility] LABCLIA [id number] [place] [address] CgA SerPl-ncon 11-11-2023 Chromogranin A [Mass/Vol] 51.3 ng/mL Normal <187.0 [facility] Comment on above: Order Comment: Speci men Type: BLOOD SPECIMENOrdering Facility: [facility] Address: [address] [place] [address] Result Comment: The Chromogranin A test was performed using the Nortal AS CgA II KRYPTOR method. Results obtained with different assay methods or kits cannot be used interchangeably. Performed By: #### 9 811-1 ####[facility] LABCLIA [id number] [place] [id number] [facility] Comprehensive metabolic 2000 panelon 11-11-2023 Albumin [Mass/Vol] 4.6 g/dL Normal 3.9-4.9 [facility] Comment on above: Order Comment: Speci men Type: BLOOD SPECIMEN Ordering Facility: [facility] Address: [address] [place] [address] Performed By: #### 2 4323-8 #### [facility] CLIA [id number] [address] [place] [address] ALP [Catalytic activity/Vol] 68 U/L Normal 34-123 [facility] Comment on above: Order Comment: Speci men Type: BLOOD SPECIMEN Ordering Facility: [facility] Address: [address] [place] [address] Performed By: #### 2 4323-8 #### [facility] CLIA [id number] [address] [place] [address] ALT [Catalytic activity/Vol] 17 U/L Normal 7-38 [facility] Comment on above: Order Comment: Speci men Type: BLOOD SPECIMEN Ordering Facility: [facility] Address: [address] [place] [address] Performed By: #### 2 4323-8 #### [facility] CLIA [id number] [address] [place] [address] Anion gap [Moles/Vol] 10 mmol/L Normal 8-15 [facility] Comment on above: Order Comment: Speci men Type: BLOOD SPECIMEN Ordering Facility: [facility] Address: [address] [place], [place] [address] Performed By: #### 2 4323-8 #### [facility] CLIA [id number] [address] [place] [address] AST [Catalytic activity/Vol] 26 U/L Normal 13-35 [facility] Comment on above: Order Comment: Speci men Type: BLOOD SPECIMEN Ordering Facility: [facility] Address: [address] [place] [address] Performed By: #### 2 4323-8 #### [facility] CLIA [id number] [address] [place] [address] Bilirubin [Mass/Vol] 0.2 mg/dL Normal 0.2-1.3 [facility] Comment on above: Order Comment: Speci men Type: BLOOD SPECIMEN Ordering Facility: [facility] Address: [address] [place] [address] Performed By: #### 2 4323-8 #### [facility] CLIA [id number] [address] [place] [address] Calcium [Mass/Vol] 10.0 mg/dL Normal 8.5-10.2 [facility] Comment on above: Order Comment: Speci men Type: BLOOD SPECIMEN Ordering Facility: [facility] Address: [address] [place], [place] [address] Performed By: #### 2 4323-8 #### [facility] CLIA [id number] [address] [place] [address] Chloride [Moles/Vol] 105 mmol/L Normal 98-107 [facility] Comment on above: Order Comment: Speci men Type: BLOOD SPECIMEN Ordering Facility: [facility] Address: [address] [place] [id number] Performed By: #### 2 4323-8 #### [facility] CLIA [id number] [address] [place] [address] CO2 [Moles/Vol] 26 mmol/L Normal 22-30 [facility] Comment on above: Order Comment: Speci men Type: BLOOD SPECIMEN Ordering Facility: [facility] Address: [address] [place] [address] Performed By: #### 2 4323-8 #### [facility] CLIA [id number] [address] [place] [address] Creatinine [Mass/Vol] 0.68 mg/dL Normal 0.58-0.96 [facility] Comment on above: Order Comment: Speci men Type: BLOOD SPECIMEN Ordering Facility: [facility] Address: [address] [place] [address] Performed By: #### 2 4323-8 #### [facility] CLIA [id number] [address] [place] [address] Creatinine and Glomerular filtration rate.predicted panel (S/P/Bld) 103 mL/min/1.73m??? Normal >=60 [facility] Comment on above: Order Comment: Speci men Type: BLOOD SPECIMEN Ordering Facility: [facility] Address: [address] [place] [address] Result Comment: Krupa mated Glomerular Filtration Rate (eGFR) is calculated using the 2020 CKD-EPI creatinine equation. This equation utilizes serum creatinine, sex, and age as parameters. The creatinine assay has traceable calibration to isotope dilution-mass spectrometry. Refer to KDIGO guidelines for clinical interpretation. In patients with unstable renal function, e.g. those with acute kidney injury, the eGFR may not accurately reflect actual GFR. Performed By: #### 2 4323-8 #### [facility] CLIA [id number] [address] [place] [address] Glucose [Mass/Vol] 110 mg/dL High 74-99 [facility] Comment on above: Order Comment: Speci men Type: BLOOD SPECIMEN Ordering Facility: [facility] Address: [address] [place] [address] Result Comment: The [place] [employer] (ADA) provides guidance for cutoff values for fasting glucose and random glucose. The ADA defines fasting as no caloric intake for at least 8 hours. Fasting plasma glucose results between 100 to 125 mg/dL indicate increased risk for diabetes (prediabetes). Fasting plasma glucose results greater than or equal to 126 mg/dL meet the criteria for diagnosis of diabetes. In the absence of unequivocal hyperglycemia, results should be confirmed by repeat testing. In a patient with classic symptoms of hyperglycemia or hyperglycemic crisis, random plasma glucose results greater than or equal to 200 mg/dL meet the criteria for diagnosis of diabetes. Reference: Standards of Medical Care in Diabetes 2016, [place] [employer]. Diabetes Care. 2016.39(Suppl 1). Performed By: #### 2 4323-8 #### [facility] CLIA [id number] [address] [place] [address] Potassium [Moles/Vol] 4.5 mmol/L Normal 3.7-5.1 [facility] Comment on above: Order Comment: Speci men Type: BLOOD SPECIMEN Ordering Facility: [facility] Address: [address] [place] [address] Performed By: #### 2 4323-8 #### [facility] CLIA [id number] [address] [place] [address] Protein [Mass/Vol] 7.5 g/dL Normal 6.3-8.0 [facility] Comment on above: Order Comment: Speci men Type: BLOOD SPECIMEN Ordering Facility: [facility] Address: [address] [place] [address] Performed By: #### 2 4323-8 #### [facility] CLIA [id number] [address] [place] [address] Sodium [Moles/Vol] 141 mmol/L Normal 136-144 [facility] Comment on above: Order Comment: Speci men Type: BLOOD SPECIMEN Ordering Facility: [facility] Address: [address] [place] [id number] Performed By: #### 2 4323-8 #### [facility] CLIA [id number] [address] [place] [address] Urea nitrogen [Mass/Vol] 11 mg/dL Normal 7-21 [facility] Comment on above: Order Comment: [facility] Type: BLOOD SPECIMEN Ordering Facility: [facility] Address: [address] [place] [address] Performed By: #### 2 4323-8 #### [facility] CLIA [id number] [address] [place] [address] [facility] 024 Gastrin [Mass/Vol] 13.9 pg/mL Normal <115.0 [facility] Comment on above: Order Comment: Michel mendoza Type: BLOOD SPECIMEN Ordering Facility: [facility] Address: [address] [place] [address] Result Comment: The Gastrin test was performed using the Siemens Immulite chemiluminescent immunometric method. Results obtained with different assay methods or kits cannot be used interchangeably. Performed By: #### Alexia IPTET, C1EST #### [facility] [id number] [address] [place] [address] VASOACTIVE INTESTINAL POLYPE PTIDE (VIP), PLASMAon 11-11-2023 VASOACTIVE INTESTINAL POLYPEPTIDE (VIP), PLASMA 20 pg/mL Normal [facility] Comment on above: Order Comment: [facility] Type: BLOOD SPECIMEN Ordering Facility: [facility] Address: [address] [place] [address] Result Comment: ADDITIONAL INFORMATION Adult Reference Range(s): Up to 36 pg/mL (mean 14) This test was developed and its performance characteristics determined by [employer]. It has not been cleared or approved by the US Food and Drug Administration. The FDA had determined that such clearance or approval is not necessary. Test Performed by: [employer] [address] [place] [address] Performed By: #### D IPTET, C1EST #### [facility] [id number] [address] [place] [address] [facility] 10-25-2023 CNPN Telephone (NCCAP) -------- HANK LIU ([id number]) 1970 F Date Time Provider Department 10/25/23 ANNEMARIE JUDD [facility] During your visit today, we recorded the following information about you: Hillary Morgan 10/25/2023 2:25 PM Signed Lvm to reschedule CT scan appointment per [facility] the week of 11/28/2023 AND TIA appointment either 12/07 or 12/09/2023 3 pm or after. Patient can either come day before CT to get labs or day of CT earlier. Gisell Cid 10/27/2023 10:23 AM Signed Patient is scheduled for a CT scan and labwork on Tuesday, 11/29. She is scheduled for a follow-up after her scan with Dr. Amaral on , 12/07. I spoke with Hank, she is in agreement. Gisell Bah Allergies As of Date: 10/25/2023 Noted Allergy Reaction IODINE 04/18/2017 4 - Hives 10 - Anaphylaxis 12 - Shortness of Breath Comments: Other reaction(s): anaphylaxis Other reaction(s): Unknown ATORVASTATIN 05/25/2021 14 - Other: See Comments Comments: Other Reaction(s): arthralgia/myalgia BUPROPION 05/10/2023 14 - Other: See Comments Comments: Other Reaction(s): Other: See Comments IODINATED CONTRAST MEDIA 11/29/2018 4 - Hives 14 - Other: See Comments 12 - Shortness of Breath Comments: Other reaction(s): Difficulty Breathing Other Reaction(s): Difficulty Breathing, Other: See Comments Other reaction(s): Difficulty Breathing MIRTAZAPINE 05/25/2021 4 - Hives 14 - Other: See Comments NALBUPHINE 04/18/2017 12 - Shortness of Breath 14 - Other: See Comments 17 - Myalgia Comments: Other Reaction(s): muscle spams, and breathing, Unknown NUBAIN (NALBUPHINE HCL) 04/18/2017 16 - Unknown Date Reviewed: 08/19/2023 Reviewed by: Heather Mccain MA - Fully Assessed Reason for Visit: Appointment [186] Prescriptions as of 11/24/2023 - diphenhydrAMINE (BENADRYL) 50 mg capsule Take 1 capsule by mouth as directed for 1 dose. one (1) hour prior to exam. - dexAMETHasone (DECADRON) 1 mg tablet Take the table at 11 pm and go for the labs - rosuvastatin (CRESTOR) 40 mg tablet Take 40 mg by mouth daily at bedtime. - traZODone (DESYREL) 100 mg tablet Take 100 mg by mouth daily at bedtime. - rOPINIRole (REQUIP) 0.25 mg tablet Take 0.5 mg by mouth once daily as needed. - L.acid/B.bifidum/B.anima l/FOS (PROBIOTIC COMPLEX ORAL) Take by mouth. 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 Surya Conley RN Allergies As of Date: 10/07/2023 Noted Allergy Reaction IODINE 04/18/2017 4 - Hives 10 - Anaphylaxis 12 - Shortness of Breath Comments: Other reaction(s): anaphylaxis Other reaction(s): Unknown ATORVASTATIN 05/25/2021 14 - Other: See Comments Comments: Other Reaction(s): arthralgia/myalgia BUPROPION 05/10/2023 14 - Other: See Comments Comments: Other Reaction(s): Other: See Comments IODINATED CONTRAST MEDIA 11/29/2018 - Hives 14 - Other: See Comments 12 - Shortness of Breath Comments: Other reaction(s): Difficulty Breathing Other Reaction(s): Difficulty Breathing, Other: See Comments Other reaction(s): Difficulty Breathing MIRTAZAPINE 05/25/2021 4 - Hives 14 - Other: See Comments NALBUPHINE 04/18/2017 12 - Shortness of Breath 14 - Other: See Comments 17 - Myalgia Comments: Other Reaction(s): muscle spams, and breathing, Unknown NUBAIN (NALBUPHINE HCL) 04/18/2017 16 - Unknown Date Reviewed: 08/19/2023 Reviewed by: Heather Mccain MA - Fully Assessed Reason for Visit: Orders [681] Primary Visit Diagnosis: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 For prevention of contrast allergy given 13 hrs, 7 hrs, and 1 hr prior to exam.Disp: 3 tabletRfl: 0 diphenhydrAMINE (BENADRYL) 50 mg capsuleTake 1 capsule by mouth as directed for 1 dose. one (1) hour prior to exam.Disp: 1 capsuleRfl: 0 COMPREHENSIVE METABOLIC PANEL [SQCMP] Order #: [id number] FUTURE COMPLETE BLOOD COUNT AND DIFFERENTIAL [SQCBCDIF] Order #: [id number] FUTURE GASTRIN BLD [SQGAST] Order #: [id number] FUTURE VIP [SQVIP] Order #: [id number] FUTURE Prescriptions as of 10/09/2023 - predniSONE (DELTASONE) 50 mg Take 1 tablet by mouth every 6 hours for 3 doses. For prevention of contrast allergy given 13 hrs, 7 hrs, and 1 hr prior to exam. - diphenhydrAMINE (BENADRYL) 50 mg capsule Take 1 capsule by mouth as directed for 1 dose. one (1) hour prior to exam. - dexAMETHasone (DECADRON) 1 mg tablet Take the table at 11 pm and go for the labs - dicyclomine (BENTYL) 20 mg tablet Take 1 tablet by mouth three times a day. - rosuvastatin (CRESTOR) 40 mg tablet Take 40 mg by mouth daily at bedtime. - traZODone (DESYREL) 100 mg tablet Take 100 mg by mouth daily at bedtime. - rOPINIRole (REQUIP) 0.25 mg tablet Take 0.5 mg by mouth once daily as needed. - L.acid/B.bifidum/B.anima l/FOS (PROBIOTIC COMPLEX ORAL) Take by mouth. 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 For prevention of contrast allergy given 13 hrs, 7 hrs, and 1 hr prior to exam. DIPHENHYDRAMINE 50 MG CAPSULE 1 ca* 0 10/09/2023 Route: ORAL Sig: Take 1 capsule by mouth as directed for 1 dose. one (1) hour prior to exam. Encounter Status:Closed by ANNEMARIE JUDD on 10/09/23 Normal [facility] IgA [Mass/volume] in Serum o r PlasmaOrdered By: Campos Wong on 09-22-2023 IgA [Mass/Vol] 274 mg/dL 87-352 [facility] IgE [Units/volume] in Serum or PlasmaOrdered By: Campos Wong on 09-22-2023 IgE Qn 21 [IU]/mL 6-495 [facility] Comment on above: Performed at: - [address] [id number] Director: Corey Issa MD, Phone: [phone] IgG [Mass/volume] in Serum o r PlasmaOrdered By: Campos Wong on 09-22-2023 IgG [Mass/Vol] 1050 mg/dL [id number] [facility] IgG subclass 1 measurementOr dered By: Campos Wong on 09-22-2023 IgG subclass 1 (S) [Mass/Vol] 508 mg/dL 248-810 [facility] IgG subclass 2 measurementOr dered By: Campos Wong on 09-22-2023 IgG subclass 2 (S) [Mass/Vol] 309 mg/dL 130-555 [facility] IgG subclass 3 measurementOr dered By: Campos Wong on 09-22-2023 IgG subclass 3 (S) [Mass/Vol] 37 mg/dL 15-102 [facility] IgM [Mass/volume] in Serum o r PlasmaOrdered By: Campos Wong on 09-22-2023 IgM [Mass/Vol] 50 mg/dL 26-217 [facility] Comment on above: Performed at: [facility] Director: Zbigniew Deluca PhD, Phone: [phone] No Panel InformationOrdered By: Campos Wong on 09-22-2023 Immunoglobulin G4 37 mg/dL 2-[address] [facility] Comment on above: Performed at: [employer] [place] [id number] Director: Zbigniew Deluca PhD, Phone: [phone] No Panel InformationOrdered By: Soraida Corral on 09-20-2023 Mononucleosis (POC) [facility] Quick Strep (POC) [facility] CNPNon 09-13-2023 CNPN Telephone (ENWSTR) -------- HANK LIU ([id number]) 1970 F Date Time Provider Department 09/13/23 SANDRA GAGE ENWSTR During your visit today, we recorded the following information about you: Lacie Martines 09/13/2023 1:40 PM Signed Patient is requesting to speak with clinical caregiver about most recent lab results and if she needs to schedule a follow up visit. Heather Mccain MA 09/14/2023 8:41 AM Signed Phoned patient. Message from provider that labs WNL and appointment can be canceled if patient agrees. Patient agrees, I will cancel appointment. Heather Mccain MA Allergies As of Date: 09/13/2023 Noted Allergy Reaction IODINE 04/18/2017 4 - Hives 10 - Anaphylaxis 12 - Shortness of Breath Comments: Other reaction(s): anaphylaxis Other reaction(s): Unknown ATORVASTATIN 05/25/2021 14 - Other: See Comments Comments: Other Reaction(s): arthralgia/myalgia BUPROPION 05/10/2023 14 - Other: See Comments Comments: Other Reaction(s): Other: See Comments IODINATED CONTRAST MEDIA 11/29/2018 4 - Hives 14 - Other: See Comments 12 - Shortness of Breath Comments: Other reaction(s): Difficulty Breathing Other Reaction(s): Difficulty Breathing, Other: See Comments Other reaction(s): Difficulty Breathing MIRTAZAPINE 05/25/2021 4 - Hives 14 - Other: See Comments NALBUPHINE 04/18/2017 12 - Shortness of Breath 14 - Other: See Comments 17 - Myalgia Comments: Other Reaction(s): muscle spams, and breathing, Unknown NUBAIN (NALBUPHINE HCL) 04/18/2017 16 - Unknown Date Reviewed: 08/19/2023 Reviewed by: Heather Mccain MA - Fully Assessed Reason for Visit: Results [95] Prescriptions as of 09/14/2023 - dexAMETHasone (DECADRON) 1 mg tablet Take the table at 11 pm and go for the labs - dicyclomine (BENTYL) 20 mg tablet Take 1 tablet by mouth three times a day. - rosuvastatin (CRESTOR) 40 mg tablet Take 40 mg by mouth daily at bedtime. - traZODone (DESYREL) 100 mg tablet Take 100 mg by mouth daily at bedtime. - rOPINIRole (REQUIP) 0.25 mg tablet Take 0.5 mg by mouth once daily as needed. - L.acid/B.bifidum/B.anima l/FOS (PROBIOTIC COMPLEX ORAL) Take by mouth. 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 Cortis p Dex SerPl-mCncon Cortisol post dose dexamethasone [Mass/Vol] 0.5 ug/dL Normal <1.8 [facility] Comment on above: Order Comment: Speci men Type: BLOOD SPECIMEN Ordering Facility: [facility] Address: [address] [place] [address] Result Comment: Afte r overnight 1 mg dexamethasone, an manager database administration cortisol of <1.8 ug/dL may indicate an adequate cortisol suppression. This result should be interpreted within the clinical context and other test results. Andrew et al. Evidence for the Low Dose Dexamethasone Suppression Test to Screen for [place]'s Syndrome - Recommendations for a Protocol for Biochemistry Laboratories. 1996 [place]. Clin. Biochem. 34 [phone]. Performed By: #### D IPTET, C1EST #### [facility] CLIA [id number] [address] [place] [address] DEXAMETHASONEon 08-23-2023 DEXAMETHASONE 470.8 ng/dL Normal [facility] Comment on above: Order Comment: Speci men Type: BLOOD SPECIMEN Ordering Facility: [facility] Address: [address], [place] [address] Result Comment: INTE RPRETIVE INFORMATION: Dexamethasone, Serum or Plasma by LC-MS/MS Adults baseline: Less than 50 ng/dL 8:00 AM draw following 1 mg dexamethasone between 11:00 pm and 12:00 am the previous evenin - 295 ng/dL 8:00 AM draw following 8 mg dexamethasone (4 x 2 mg doses) between 11:00 pm and 12:00 am the previous evenin - 2850 ng/dL This test was developed and its performance characteristics determined by [facility]. It has not been cleared or approved by the [place] Food and Drug Administration. This test was performed in a CLIA certified laboratory and is intended for clinical purposes. Performed By: [facility] [address] [place] [address] Roofing Technician: Jarocho Stewart MD, PhD CLIA Number: [id number] Performed By: #### D IPTET, C1EST #### [facility] CLIA [id number] [address] [place] [address] CNOVon 08-19-2023 CNOV Office Visit (ENWSTR ) -------- HANK LIU ([id number]) 1970 F Date Time Provider Department 08/19/23 10:40 AM SANDRA GAGE ENWSTR During your visit today, we recorded the following information about you: Temperature Pulse Blood pressure Weight 98.8 degrees 67/minute 118/70 91.4 kg Height 1.575 m Sandra Gage MD 08/20/2023 10:10 PM Signed [facility] Initial Clinic Visit Note Consulted by: Naty Booker Jr., (GI) Chief Complaint: Weight gain, 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 She had a tummy tuck in the past, but now she has bloating and central obesity, and reports she does not feel like herself Low appetite No proximal muscle weakness No stretch almaraz No easy bruising On chart review, it is noted she took prednisone x 2, and she reports it was each time for 7 days for pneumonia in December 2022, Mar 2023 On day for prednisone for allergy to contrast for an imaging study She is off of Creon at this time due to bloating PAST MEDICAL HISTORY: PAST MEDICAL HISTORY Diagnosis Date Arthritis Carcinoid tumor of stomach Gall stones GERD (gastroesophageal reflux disease) Hemorrhoids Hyperlipidemia Stomach ulcer UTI (urinary tract infection) PAST SURGICAL HISTORY: PAST SURGICAL HISTORY Procedure Laterality Date ANESTH, SECTION CHOLECYSTECTOMY COLONOSCOPY 03/22/2016 EGD HYSTERECTOMY HX LAP REMOVE/REV MESH BLADDER WALL PAST SURGICAL HISTORY OF 04/2019 breast reconstruction SLEEVE RESECTION STOMACH FAMILY HISTORY: FAMILY HISTORY Problem Relation Age of Onset Diabetes Mother Colon Cancer Mother 55 detected on autopsy Aneurysm Mother 55 aortic Heart disease Father Hyperlipidemia Father Stroke Father Cancer Brother 48 kidney Cancer Brother spinal cord SOCIAL HISTORY: Social History Tobacco Use Smoking status: Former Types: Cigarettes Quit date: 05/2022 Years since quittin.2 Passive exposure: Current Smokeless tobacco: Never Vaping Use Vaping Use: Never used Substance Use Topics Alcohol use: Not Currently Drug use: No MEDICATIONS: Current Outpatient Medications Medication Sig dicyclomine (BENTYL) 20 mg tablet Take 1 tablet by mouth three times a day. (Patient taking differently: Take 20 mg by mouth three times a day. As needed) rosuvastatin (CRESTOR) 40 mg tablet Take 40 mg by mouth daily at bedtime. traZODone (DESYREL) 100 mg tablet Take 100 mg by mouth daily at bedtime. rOPINIRole (REQUIP) 0.25 mg tablet Take 0.5 mg by mouth once daily as needed. L.acid/B.bifidum/B.anima l/FOS (PROBIOTIC COMPLEX ORAL) Take by mouth. predniSONE (DELTASONE) 50 mg Take 1 tablet by mouth as directed. Take 1 tablet @ 24H prior, 12H prior, 6H Prior and 1H prior - to CT scan for dye allergy. OMEGA-3 ACID ETHYL ESTERS ORAL Take 2 capsules by mouth. (Patient not taking: Reported on 08/19/2023) valACYclovir (VALTREX) 500 mg tablet 500 mg. No current facility-administered medications for this visit. ALLERGIES: ALLERGIES Allergen Reactions Iodine Hives, Anaphylaxis, Shortness of Breath Other reaction(s): anaphylaxis Other reaction(s): Unknown Atorvastatin Other: See Comments Other Reaction(s): arthralgia/myalgia Bupropion Other: See Comments Other Reaction(s): Other: See Comments Iodinated Contrast * Hives, Other: See Comments, Shortness of Breath Other reaction(s): Difficulty Breathing Other Reaction(s): Difficulty Breathing, Other: See Comments Other reaction(s): Difficulty Breathing Mirtazapine Hives, Other: See Comments Nalbuphine Shortness of Breath, Other: See Comments, Myalgia Other Reaction(s): muscle spams, and breathing, Unknown Nubain [Nalbuphine * Unknown REVIEW OF SYSTEMS: As per HPI PHYSICAL EXAM: BP 118/70 Pulse 67 Temp 37.1 ?C (98.8 ?F) (Temporal Artery) Ht 157.5 cm (5' 2 ) Wt 91.4 kg (201 lb 9.6 oz) SpO2 97% BMI 36.87 kg/m? Body mass inde (more content not included)... Normal [facility] CBC W Auto Differential pane l (Bld)on 08-15-2023 Basophils (Bld) [#/Vol] 0.06 10*3/uL Normal <0.11 [facility] Comment on above: Order Comment: Speci men Type: BLOOD SPECIMEN Ordering Facility: [facility] Address: [address] [place] [address] Performed By: #### D IPTET, C1EST #### [facility] CLIA [id number] [address] [place] [address] Basophils/100 WBC (Bld) 1.3 % Normal [facility] Comment on above: Order Comment: Speci men Type: BLOOD SPECIMEN Ordering Facility: [facility] Address: [address] [place] [address] Performed By: #### D IPTET, C1EST #### [facility] CLIA [id number] [address] [place] [address] Differential cell count method Nom (Bld) Auto Normal [facility] Comment on above: Order Comment: Speci men Type: BLOOD SPECIMEN Ordering Facility: [facility] Address: [address] [place] [address] Performed By: #### D IPTET, C1EST #### [facility] CLIA [id number] [address] [place] [address] Eosinophils (Bld) [#/Vol] 0.24 10*3/uL Normal <0.46 [facility] Comment on above: Order Comment: Speci men Type: BLOOD SPECIMEN Ordering Facility: [facility] Address: [address] [place] [address] Performed By: #### D IPTET, C1EST #### [facility] CLIA [id number] [address] [place] [address] Eosinophils/100 WBC (Bld) 5.0 % Normal [facility] Comment on above: Order Comment: Speci men Type: BLOOD SPECIMEN Ordering Facility: [facility] Address: [address] [place] [address] Performed By: #### D IPTET, C1EST #### [facility] CLIA [id number] [address] [place] [address] Erythrocyte distribution width (RBC) [Ratio] 13.7 % Normal 11.5-15.0 [facility] Comment on above: Order Comment: Speci men Type: BLOOD SPECIMEN Ordering Facility: [facility] Address: [address] [place] [address] Performed By: #### D IPTET, C1EST #### [facility] CLIA [id number] [address] [place] [address] Hematocrit (Bld) [Volume fraction] 39.2 % Normal 36.0-46.0 [facility] Comment on above: Order Comment: Speci men Type: BLOOD SPECIMEN Ordering Facility: [facility] Address: [address] [place] [address] Performed By: #### D IPTET, C1EST #### [facility] CLIA [id number] [address] [place] [address] Hemoglobin (Bld) [Mass/Vol] 13.1 g/dL Normal 11.5-15.5 [facility] Comment on above: Order Comment: Speci men Type: BLOOD SPECIMEN Ordering Facility: [facility] Address: [address] [place] [address] Performed By: #### D IPTET, C1EST #### [facility] CLIA [id number] [address] [place] [address] Immature granulocytes (Bld) [#/Vol] 10*3/uL Normal <0.10 [facility] Comment on above: Order Comment: Speci men Type: BLOOD SPECIMEN Ordering Facility: [facility] Address: [address] [place] [address] Performed By: #### D IPTET, C1EST #### [facility] CLIA [id number] [address] [place] [address] Immature granulocytes/100 WBC (Bld) 0.2 % Normal [facility] Comment on above: Order Comment: Speci men Type: BLOOD SPECIMEN Ordering Facility: [facility] Address: [address] [place] [address] Performed By: #### D IPTET, C1EST #### [facility] CLIA [id number] [address] [place] [address] Lymphocytes (Bld) [#/Vol] 2.13 10*3/uL Normal 1.00-4.00 [facility] Comment on above: Order Comment: Speci men Type: BLOOD SPECIMEN Ordering Facility: [facility] Address: [address] [place] [address] Performed By: #### D IPTET, C1EST #### [facility] CLIA [id number] [address] [place] [address] Lymphocytes/100 WBC (Bld) 44.5 % Normal [facility] Comment on above: Order Comment: Speci men Type: BLOOD SPECIMEN Ordering Facility: [facility] Address: [address] [place] [address] Performed By: #### D IPTET, C1EST #### [facility] CLIA [id number] [address] [place] [address] MCH (RBC) [Entitic mass] 28.2 pg Normal 26.0-34.0 [facility] Comment on above: Order Comment: Speci men Type: BLOOD SPECIMEN Ordering Facility: [facility] Address: [address] [place] [address] Performed By: #### D IPTET, C1EST #### [facility] CLIA [id number] [address] [place] [address] MCHC (RBC) [Mass/Vol] 33.4 g/dL Normal 30.5-36.0 [facility] Comment on above: Order Comment: Speci men Type: BLOOD SPECIMEN Ordering Facility: [facility] Address: [address] [place] [address] Performed By: #### D IPTET, C1EST #### [facility] CLIA [id number] [address] [place] [address] MCV (RBC) [Entitic vol] 84.3 fL Normal 80.0-100.0 [facility] Comment on above: Order Comment: Speci men Type: BLOOD SPECIMEN Ordering Facility: [facility] Address: [address] [place] [address] Performed By: #### D IPTET, C1EST #### [facility] CLIA [id number] [address] [place] [address] Monocytes (Bld) [#/Vol] 0.46 10*3/uL Normal <0.87 [facility] Comment on above: Order Comment: Speci men Type: BLOOD SPECIMEN Ordering Facility: [facility] Address: [address] [place] [address] Performed By: #### D IPTET, C1EST #### [facility] CLIA [id number] [address] [place] [address] Monocytes/100 WBC (Bld) 9.6 % Normal [facility] Comment on above: Order Comment: Speci men Type: BLOOD SPECIMEN Ordering Facility: [facility] Address: [address] [place] [address] Performed By: #### D IPTET, C1EST #### [facility] CLIA [id number] [address] [place] [address] Neutrophils (Bld) [#/Vol] 1.89 10*3/uL Normal 1.45-7.50 [facility] Comment on above: Order Comment: Speci men Type: BLOOD SPECIMEN Ordering Facility: [facility] Address: [address] [place] [address] Performed By: #### D IPTET, C1EST #### [facility] CLIA [id number] [address] [place] [address] Neutrophils/100 WBC (Bld) 39.4 % Normal [facility] Comment on above: Order Comment: Speci men Type: BLOOD SPECIMEN Ordering Facility: [facility] Address: [address] [place] [address] Performed By: #### D IPTET, C1EST #### [facility] CLIA [id number] [address] [place] [address] Nucleated RBC (Bld) [#/Vol] 10*3/uL Normal <0.01 [facility] Comment on above: Order Comment: Speci men Type: BLOOD SPECIMEN Ordering Facility: [facility] Address: [address] [place] [address] Performed By: #### D IPTET, C1EST #### [facility] CLIA [id number] [address] [place] [address] Nucleated RBC/100 WBC (Bld) [Ratio] 0.0 /100 WBC Normal [facility] Comment on above: Order Comment: Speci men Type: BLOOD SPECIMEN Ordering Facility: [facility] Address: [address] [place] [address] Performed By: #### D IPTET, C1EST #### [facility] CLIA [id number] [address] [place] [address] Platelet mean volume (Bld) [Entitic vol] 9.4 fL Normal 9.0-12.7 [facility] Comment on above: Order Comment: Speci men Type: BLOOD SPECIMEN Ordering Facility: [facility] Address: [address] [place] [address] Performed By: #### D IPTET, C1EST #### [facility] CLIA [id number] [address] [place] [address] Platelets (Bld) [#/Vol] 240 10*3/uL Normal 150-400 [facility] Comment on above: Order Comment: Speci men Type: BLOOD SPECIMEN Ordering Facility: [facility] Address: [address] [place] [address] Performed By: #### D IPTET, C1EST #### [facility] CLIA [id number] [address] [place] [address] RBC (Bld) [#/Vol] 4.65 10*6/uL Normal 3.90-5.20 [facility] Comment on above: Order Comment: Speci men Type: BLOOD SPECIMEN Ordering Facility: [facility] Address: [address] [place] [address] Performed By: #### D IPTET, C1EST #### [facility] CLIA [id number] [address] [place] [address] WBC (Bld) [#/Vol] 4.79 10*3/uL Normal 3.70-11.00 [facility] Comment on above: Order Comment: Speci men Type: BLOOD SPECIMEN Ordering Facility: [facility] Address: [address] [place] [address] Performed By: #### D IPTET, C1EST #### [facility] CLIA [id number] [address] [place] [address] [facility] Chromogranin A [Mass/Vol] 36.5 ng/mL Normal <187.0 [facility] Comment on above: Order Comment: Speci men Type: BLOOD SPECIMEN Ordering Facility: [facility] Address: [address] [place] [address] Result Comment: The Chromogranin A test was performed using the FaculteS CgA II KRYPTOR method. Results obtained with different assay methods or kits cannot be used interchangeably. Performed By: #### 9 811-1 #### [facility] CLIA [id number] [address] [place], [place] [address] [facility] Comprehensive metabolic [facility] [place] panelon 08-15-2023 Albumin [Mass/Vol] 4.7 g/dL Normal 3.9-4.9 [facility] Comment on above: Order Comment: Speci men Type: BLOOD SPECIMEN Ordering Facility: [facility] Address: [address] [place] [address] Performed By: #### D IPTET, C1EST #### [facility] CLIA [id number] [address] [place] [address] ALP [Catalytic activity/Vol] 54 U/L Normal 34-123 [facility] Comment on above: Order Comment: Speci men Type: BLOOD SPECIMEN Ordering Facility: [facility] Address: [address] [place] [address] Performed By: #### D IPTET, C1EST #### [facility] CLIA [id number] [address] [place] [address] ALT [Catalytic activity/Vol] 24 U/L Normal 7-38 [facility] Comment on above: Order Comment: Speci men Type: BLOOD SPECIMEN Ordering Facility: [facility] Address: [address] [place] [address] Performed By: #### D IPTET, C1EST #### [facility] CLIA [id number] [address] [place] [address] Anion gap [Moles/Vol] 11 mmol/L Normal 9-18 [facility] Comment on above: Order Comment: Speci men Type: BLOOD SPECIMEN Ordering Facility: [facility] Address: [address] [place] [address] Performed By: #### D IPTET, C1EST #### [facility] CLIA [id number] [address] [place] [address] AST [Catalytic activity/Vol] 39 U/L High 13-35 [facility] Comment on above: Order Comment: Speci men Type: BLOOD SPECIMEN Ordering Facility: [facility] Address: [address] [place] [address] Performed By: #### D IPTET, C1EST #### [facility] CLIA [id number] [address] [place] [address] Bilirubin [Mass/Vol] 0.3 mg/dL Normal 0.2-1.3 [facility] Comment on above: Order Comment: Speci men Type: BLOOD SPECIMEN Ordering Facility: [facility] Address: [address] [place] [address] Performed By: #### D IPTET, C1EST #### [facility] CLIA [id number] [address] [place] [address] Calcium [Mass/Vol] 10.2 mg/dL Normal 8.5-10.2 [facility] Comment on above: Order Comment: Speci men Type: BLOOD SPECIMEN Ordering Facility: [facility] Address: [address] [place] [address] Performed By: #### D IPTET, C1EST #### [facility] CLIA [id number] [address] [place] [address] Chloride [Moles/Vol] 107 mmol/L High 97-105 [facility] Comment on above: Order Comment: Speci men Type: BLOOD SPECIMEN Ordering Facility: [facility] Address: [address] [place] [address] Performed By: #### D IPTET, C1EST #### [facility] CLIA [id number] [address] [place] [address] CO2 [Moles/Vol] 25 mmol/L Normal 22-30 [facility] Comment on above: Order Comment: Speci men Type: BLOOD SPECIMEN Ordering Facility: [facility] Address: [address] [place] [address] Performed By: #### D IPTET, C1EST #### [facility] CLIA [id number] [address] [place] [address] Creatinine [Mass/Vol] 0.77 mg/dL Normal 0.58-0.96 [facility] Comment on above: Order Comment: Michel mendoza Type: BLOOD SPECIMEN Ordering Facility: [facility] Address: [address] [place] [address] Performed By: #### D IPTET, C1EST #### [facility] CLIA [id number] [address] [place] [address] Creatinine and Glomerular filtration rate.predicted panel (S/P/Bld) 91 mL/min/1.73m??? Normal >=60 [facility] Comment on above: Order Comment: Michel mendoza Type: BLOOD SPECIMEN Ordering Facility: [facility] Address: [address] [place] [address] Result Comment: Krupa mated Glomerular Filtration Rate (eGFR) is calculated using the 2020 CKD-EPI creatinine equation. This equation utilizes serum creatinine, sex, and age as parameters. The creatinine assay has traceable calibration to isotope dilution-mass spectrometry. Refer to KDIGO guidelines for clinical interpretation. In patients with unstable renal function, e.g. those with acute kidney injury, the eGFR may not accurately reflect actual GFR. Performed By: #### D IPTET, C1EST #### [facility] CLIA [id number] [address] [place] [address] Glucose [Mass/Vol] 111 mg/dL High 74-99 [facility] Comment on above: Order Comment: Michel mendoza Type: BLOOD SPECIMEN Ordering Facility: [facility] Address: [address] [place] [address] Result Comment: The [place] Diabetes [employer] (ADA) provides guidance for cutoff values for fasting glucose and random glucose. The ADA defines fasting as no caloric intake for at least 8 hours. Fasting plasma glucose results between 100 to 125 mg/dL indicate increased risk for diabetes (prediabetes). Fasting plasma glucose results greater than or equal to 126 mg/dL meet the criteria for diagnosis of diabetes. In the absence of unequivocal hyperglycemia, results should be confirmed by repeat testing. In a patient with classic symptoms of hyperglycemia or hyperglycemic crisis, random plasma glucose results greater than or equal to 200 mg/dL meet the criteria for diagnosis of diabetes. Reference: Standards of Medical Care in Diabetes 2016, [place] [employer]. Diabetes Care. 2016.39(Suppl 1). Performed By: #### D IPTET, C1EST #### [facility] CLIA [id number] [address] [place] [address] Potassium [Moles/Vol] 4.6 mmol/L Normal 3.7-5.1 [facility] Comment on above: Order Comment: Speci men Type: BLOOD SPECIMEN Ordering Facility: [facility] Address: [address] [place] [address] Performed By: #### D IPTET, C1EST #### [facility] CLIA [id number] [address] [place] [address] Protein [Mass/Vol] 7.2 g/dL Normal 6.3-8.0 [facility] Comment on above: Order Comment: Speci men Type: BLOOD SPECIMEN Ordering Facility: [facility] Address: [address] [place] [address] Performed By: #### D IPTET, C1EST #### [facility] CLIA [id number] [address] [place] [address] Sodium [Moles/Vol] 143 mmol/L Normal 136-144 [facility] Comment on above: Order Comment: Speci men Type: BLOOD SPECIMEN Ordering Facility: [facility] Address: [address] [place] [address] Performed By: #### D IPTET, C1EST #### [facility] CLIA [id number] [address] [place] [address] Urea nitrogen [Mass/Vol] 11 mg/dL Normal 7-21 [facility] Comment on above: Order Comment: Speci men Type: BLOOD SPECIMEN Ordering Facility: [facility] Address: [address] [place] [address] Performed By: #### D IPTET, C1EST #### [facility] CLIA [id number] [address] [place] [address] Gastrin SerPl-mCncon 04-08-2 024 Gastrin [Mass/Vol] 19.4 pg/mL Normal <115.0 [facility] Comment on above: Order Comment: Speci men Type: BLOOD SPECIMEN Ordering Facility: [facility] Address: [address] [place] [address] Result Comment: The Gastrin test was performed using the Siemens Immulite chemiluminescent immunometric method. Results obtained with different assay methods or kits cannot be used interchangeably. Performed By: #### D IPTET, C1EST #### [facility] CLIA [id number] [address] [place] [address] SEROTONIN BLDon 08-15-2023 SEROTONIN SERUM 89 ng/mL Normal 50-220 [facility] Comment on above: Order Comment: Speci kelly Type: BLOOD SPECIMENOrdering Facility: [facility] Address: [address] [place] [address] Result Comment: TEST INFORMATION: Serotonin, Serum This test was developed and its performance characteristics determined by [facility]. It has not been cleared or approved by the US Food and Drug Administration. This test was performed in a CLIA certified laboratory and is intended for clinical purposes. Performed By: [facility] [address] [place] [address] Roofing Technician: Jarocho Stewart MD, PhD CLIA Number: [id number] Performed By: #### S ERTON ####[facility] [id number] [place] [address] VIPon 08-15-2023 VASOACTIVE INTESTINAL PEPTIDE <13 Normal 0-60 [facility] Comment on above: Order Comment: Speci kelly Type: BLOOD SPECIMEN Ordering Facility: [facility] Address: [address] [place] [address] Result Comment: This test was developed and its performance characteristics determined by [facility]. It has not been cleared or approved by the [place] Food and Drug Administration. This test was performed in a CLIA certified laboratory and is intended for clinical purposes. Performed By: [facility] [address] [place] [address] Roofing Technician: Jarocho Stewart MD, PhD CLIA Number: [id number] Performed By: #### D IPTET, C1EST #### [facility] CLIA [id number] [address] [place] [address] Blair 08-10-2023 CNPN Telephone (HEMAS[place]) -------- HANK LIU ([id number]) 1970 F Date Time Provider Department 08/10/23 KARLA SHOEMAKER During your visit today, we recorded the following information about you: Karla Shoemaker RN 08/10/2023 3:48 PM Signed Pt requesting results of PET. She reviewed on and is concerned about some wording? Tia: Please review and advise KRISTI Briceño Natalie, RN 08/11/2023 9:44 AM Signed BRM: can you review her PET and advise? Pt called again very anxious about results KRISTI Briceño Vivek, MD 08/11/2023 12:24 PM Signed Hi Mona - PET was completely negative for uptake - her symptoms really have to be related to gastroenterology. Karla Shoemaker RN 08/11/2023 12:51 PM Signed Pt aware of Tia's message. She stated Dr Booker suggested I be tested for Katy's disease. Pt sees spark tester 08/22/23 and will discuss with them. Will notify our office of any needs. Karla Shoemaker RN Allergies As of Date: 08/10/2023 Noted Allergy Reaction IODINE 04/18/2017 4 - Hives 10 - Anaphylaxis 12 - Shortness of Breath Comments: Other reaction(s): anaphylaxis Other reaction(s): Unknown ATORVASTATIN 05/25/2021 14 - Other: See Comments Comments: Other Reaction(s): arthralgia/myalgia BUPROPION 05/10/2023 14 - Other: See Comments Comments: Other Reaction(s): Other: See Comments IODINATED CONTRAST MEDIA 11/29/2018 4 - Hives 14 - Other: See Comments 12 - Shortness of Breath Comments: Other reaction(s): Difficulty Breathing Other Reaction(s): Difficulty Breathing, Other: See Comments Other reaction(s): Difficulty Breathing MIRTAZAPINE 05/25/2021 4 - Hives 14 - Other: See Comments NALBUPHINE 04/18/2017 12 - Shortness of Breath 14 - Other: See Comments 17 - Myalgia Comments: Other Reaction(s): muscle spams, and breathing, Unknown NUBAIN (NALBUPHINE HCL) 04/18/2017 16 - Unknown Date Reviewed: 08/05/2023 Reviewed by: Ollie Hung MA - Fully Assessed Reason for Visit: Results [95] Prescriptions as of 08/11/2023 - dicyclomine (BENTYL) 20 mg tablet Take 1 tablet by mouth three times a day. - metroNIDAZOLE (FLAGYL) 500 mg tablet Take 1 tablet by mouth two times a day for 7 days. - predniSONE (DELTASONE) 50 mg Take 1 tablet by mouth as directed. Take 1 tablet @ 24H prior, 12H prior, 6H Prior and 1H prior - to CT scan for dye allergy. - rosuvastatin (CRESTOR) 40 mg tablet Take 40 mg by mouth daily at bedtime. - traZODone (DESYREL) 100 mg tablet Take 100 mg by mouth daily at bedtime. - OMEGA-3 ACID ETHYL ESTERS ORAL Take 2 capsules by mouth. - rOPINIRole (REQUIP) 0.25 mg tablet Take 0.5 mg by mouth once daily as needed. - L.acid/B.bifidum/B.anima l/FOS (PROBIOTIC COMPLEX ORAL) Take by mouth. - valACYclovir (VALTREX) 500 mg tablet 500 mg. 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] 02/25/2022 Gastroenteritis [K52.9] 02/23/2022 Generalized abdominal pain [R10.84] 02/23/2022 07/30/2022 Obesity (BMI 35.0-39.9 without comorbidity) [E6*02/25/2022 PONV (postoperative nausea and vomiting) [R11.2*02/25/2022 DARNELL (obstructive sleep apnea) [G47.33] 02/25/2022 History of benign carcinoid tumor of gastrointe*03/12/2022 Peptic ulcer disease [K27.9] 03/12/2022 Severe recurrent major depression without psych*09/25/2022 Family history of colon cancer in mother [Z80.0]12/29/2022 Malignant carcinoid tumor of duodenum (HCC) [C7*03/14/2023 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 ?Resected in 2011. TECHNIQUE: Radiopharmaceutical was administered IV followed about 60 minutes later by PET imaging from skull vertex to proximal thighs. Free breathing, low dose CT of the same body region was acquired without IV contrast for attenuation correction and anatomic localization. * CT Dose-Length Product (DLP): 528 mGy*cm * CT Dose Reduction Employed: Yes * Radiopharmaceutical Dose: 6 mCi * Radiopharmaceutical: Ga-68 Dotatate COMPARISON: No prior Dotatate PET/CT available CORRELATION: FDG PET/CT 08/19/2020; CT chest 07/20/2023, CT abdomen/pelvis 04/19/2023 RESULT: REFERENCES: SUV reference values: * Background liver activity: SUVmax 10.6 * Background spleen activity: SUVmax 35.3 Auditor Appraiser (topogram) images: No additional findings. Please note the following: * Standardized uptake values indicate the highest activity concentration (SUVmax) at a given location but can be variable and are not absolute. * Physiologic uptake is common in the pituitary, salivary glands, thyroid, liver, adrenals, spleen, pancreatic uncinate, GI tract, and urinary tract. Certain organ systems can have more intense uptake, which could confound or obscure some pathology. * Unenhanced imaging is limited for the evaluation of some pathology and the acquired CT was not designed to produce or replace diagnostic CT scan quality. * PET-CT is often not sensitive for pulmonary nodules less than 8 mm. HEAD AND NECK: Head: No abnormal uptake. Neck and Lymph Nodes: No abnormal uptake. Nonenlarged nodes with mild tracer activity likely reactive. Thyroid: No abnormal uptake. CHEST: Lungs and Airways: No abnormal uptake. Pleura and Pericardium: No abnormal uptake. Cardiovascular: No abnormal uptake. Mediastinum and Lymph Nodes: No abnormal uptake. Nonenlarged mediastinal and axillary nodes with mild tracer activity likely reactive. ABDOMEN AND PELVIS: Hepatobiliary: No abnormal uptake. Cholecystectomy. Spleen: No abnormal uptake. Probable small anterior splenule, stable. No splenomegaly. Pancreas: No abnormal uptake. Probable prominent uncinate activity. Adrenals: No abnormal uptake. Urinary Tract: No abnormal uptake. Punctate nonobstructing right renal calculi, unchanged. GI Tract: No abnormal uptake. No dilated bowel. Colonic diverticulosis. Peritoneum: No abnormal uptake. No ascites. Vasculature: No abnormal uptake. Atherosclerotic calcifications without an abdominal aortic aneurysm. Retroperitoneum and Lymph Nodes: No abnormal uptake. Pelvis: No abnormal uptake. MUSCULOSKELETAL: Osseous: No abnormal uptake. Degenerative changes. Soft Tissues: No abnormal uptake. IMPRESSION: HEAD/NECK: * No Dotatate avid neoplastic process. CHEST: * No Dotatate avid neoplastic process. ABDOMEN/PELVIS: * No Dotatate avid neoplastic process. MUSCULOSKELETAL: * No Dotatate avid neoplastic process. Pantograph Machine Set Up Operator: ANNA MARIE Transcribe Date/Time: Aug 10 2023 12:08P Dictated by : BETTYE PAYNE MD This examination was interpreted and the report reviewed and electronically signed by: SU LEONARD MD on Aug 10 2023 1:22PM EST [id number] Normal [facility] PET+CT Brain for tau protein on 08-10-2023 [facility] Midbody Ab [Titer] in Serum by ImmunofluorescenceOrdered By: Ezequiel Cano on 08-09-2023 Midbody Ab IF (S) [Titer] 1:80 . [facility] Comment on above: ICAP nomenclature: A C-27 No Panel InformationOrdered By: Ezequiel Cano on 08-09-2023 Anti-Nuclear Antibody Comment 2 See comment . [facility] Comment on above: Pattern Potential Di sease Association Homogeneous Systemic Lupus Erythematosus, Drug Induced Systemic Lupus Erythematosus, Chronic Autoimmune hepatitis, Juvenile Idiopathic Arthritis Speckled Sjogren Syndrome, Systemic Lupus Erythematosus, Subacute Cutaneous Lupus, Lupus, Congenital Heart Block, Mixed Connective Tissue Disease, Scleroderma-diffuse, Scleroderma-Autoimmune Myositis Overlap Syndrome, Systemic Lupus Xpoyxekcjgkqj-Tllmysunlhg-Juulsxtvnp Myositis Overlap Syndrome, Systemic Autoimmune Rheumatic Disease, Undifferentiated Connective Tissue Disease Nucleolar Systemic Sclerosis, Scleroderma-Autoimmune Myositis Overlap Syndrome, Sjogren Syndrome, Raynaud phenomenon, Pulmonary Arterial Hypertension, Systemic Autoimmune Rheumatic Disease, Cancer Centromere Scleroderma-CREST, Limited Cutaneous SSc, Raynaud's Phenomenon, Primary Biliary Cholangitis Nuclear Dot Primary Biliary Cholangitis Nuclear Primary Biliary Cholangitis, AutoimmuneMembrane Hepatitis/Liver disease, Systemic Autoimmune Rheumatic Disease, Autoimmune Cytopenias, Linear Scleroderma, Antiphospholipid Syndrome Performed at: [facility] [id number] [place], [place] [id number] Director: Zbigniew Deluca PhD, Phone: [phone] Serum homogeneous pattern an tinuclear antibody (ARMANI) titerOrdered By: Ezequiel Cano on 08-09-2023 Homogenous nuclear Ab pattern (S) [Titer] 1:80 . [facility] Comment on above: ICAP nomenclature: A C-1 Serum nuclear antibody titer Ordered By: Ezequiel Cano on 08-09-2023 Nuclear Ab (S) [Titer] Positive . [facility] Comment on above: Negative <1:80 Borde rline 1:80 Positive >1:80 Serum or plasma cyclic adeno sine monophosphate measurement (moles/volume)Ordered By: Ezequiel Cano on 08-09-2023 Adenosine monophosphate.cyclic [Moles/Vol] 1 units 0-19 [facility] Comment on above: Negative <20 Weak po sitive 20 - 39 Moderate positive 40 - 59 Strong positive >59Performed at: [facility] [id number] [place], [place] [id number] Director: Zbigniew Deluca PhD, Phone: [phone] Serum or plasma rheumatoid f actor measurement (units/volume)Ordered By: Ezequiel Cano on 08-09-2023 Rheumatoid factor Qn [IU]/mL <14.0 [facility] Comment on above: Performed at: [facility] [address] [id number] Director: Zbigniew Deluca PhD, Phone: [phone] So 08-05-2023 CNOV Office Visit ([facility] ) -------- HANK LIU ([id number]) 1970 F Date Time Provider Department 08/05/23 2:40 PM NATY BOOKER JR [facility] During your visit today, we recorded the following information about you: Temperature Pulse Blood pressure Weight 98.1 degrees 94/minute 128/79 92.1 kg Height 1.575 m Naty Booker Jr., DO 08/05/2023 3:26 PM Signed Patient presents with: Abdominal Pain HPI: Hank Liu, 53 year old female, with history of carcinoid of the stomach / duodenum, gastric cancer, peptic ulcer disease, exocrine pancreatic insufficiency presenting with generalized bloating and abd pain and bloating. Denies vomiting, constipation, and diarrhea. She certainly has abd bloating but appears to have entire body swelling. Significant weight gain. She denies recent steroids. Associated intermittent abd cramping. Food makes symptoms worse. She is scheduled next week at [facility] for special nuclear scans (Dotatate PET/CT) by oncology given her history. She remains on Nexium, Creon, and Bentyl. Failed Carafate, Levbid. EGD and colonoscopy done in December. Negative for malignancy, h.pylori, and recurrence of gastric cancer and carcinoid. Family history of colon cancer (mother). TSH, gastrin, urine studies for 5-HIAA, and celiac were negative. Past GI workup 07/27/23 OV notes per Annemarie Judd MD Currently in surveillance. Has chronic diarrhea. Octrescan 10/24/17 did not identify recurrent or metastatic disease. Elevating chromogranin A in November 2018 prompted additional workup. Thyroid nodule resolved. Continues to have significant abdominal pain and bloating despite increase in Creon. Will ask GI to see and in meanwhile obtain Dotatate imaging. Continue CREON more regularly. Dotatate PET/CT with Chromogranin A, serotonin, VIP, Gastrin, CBC, CMP Please obtain in next 4 weeks. RTC after to review. Anticipate CT Chest with CT Liver pelvis + labs in 4 months Labs same day. Include chromogranin A. RTC after to review Will Discuss symptoms with Dr. Booker to see if he can evaluate sooner. 05/10/23 last [address] notes per Dr. Booker as follows: 52 y/o female with ongoing bloating, abd pain, and fatigue. Imaging and endoscopic evaluation has been negative for recurrence of carcinoid. Etiology for her symptoms is not entirely clear. At this time will check labs, followup imaging already ordered, start amitriptyline for symptoms. Followup in 8 to 12 wks. 04/19/23 CT ABD/PEL W IVCON 1. Stable CT examination of the abdomen and pelvis. No substantial intra-abdominal or pelvic lymphadenopathy is appreciated. 2. Incidental note is again made of right-sided nonobstructive nephrolithiasis. 3. Newly apparent right lower lobe airspace opacities, likely infectious/inflammatory in nature, correlation with follow-up examinations is recommended to assess for clearing. 12/29/22 EGD/colonoscopy were done for Upper abdominal pain, Dyspepsia, Heartburn, Esophageal reflux, histor of gastric carcinoma, Diarrhea, Rectal bleeding per Naty Booker Jr, DO Normal esophagus. Z-line regular, 35 cm from the incisors. Gastritis. Biopsied. Normal examined duodenum The examined portion of the ileum was normal. Diverticulosis in the sigmoid colon. Normal mucosa in the entire examined colon. Internal hemorrhoids. Path as follows: A. Antrum, biopsy: -Minimal chronic inactive gastritis and reactive change in antral mucosa. -Oxyntic mucosa with mild PPI effect. -Negative for intestinal metaplasia or dysplasia. -No H. pylori on routine stain. B. Random colon, biopsy: -Colonic mucosa with no diagnostic abnormality. -No evidence of lymphocytic or collagenous colitis. 07/14/22 path from EGD as follows: Gastric antrum, biopsy: Chronic inactive gastritis. negative for Helicobacter pylori organisms. 07/22/22 [facility] visit notes per Dr. Pritchard --History of carcinoid tumor of stomach, resection in 2011 --EGD in 02/2022 with gastric ulcer had partial symptomatic response to PPI BID --Takes esomeprazole twice daily since February - helps 50-60% recommend repeat EGD to ensure resolution with PPI BID Last labs as follows: Component Ref Range AND Units 2 mo ago [facility] IGA SERPL-[facility] 70 - 400 mg/dL 233 Latest Ref Rng 05/04/2018 08/10/2018 10/27/2018 5 HIAA, 24 Hr Urine 0.0 - 8.0 mg/24hrs 8.5 (H) 7.4 6.4 Latest Ref Rng 07/23/2020 06/25/2021 09/13/2022 03/14/2023 Chromogranin A <187.0 ng/mL 76 85 63 53.0 Latest Ref Rng 09/13/2022 Gastrin <115.0 pg/mL 35.6 Latest Ref Rng 05/10/2023 Transglutaminase IgA Abs <4 U/mL <2 Transglutaminase IgA Abs Interpretation Negative Negative Interpretation (Celiac Screen) No serological evidence of celiac disease, however, if celiac disease is clinically suspected and patient is not on gluten-free diet, histological diagnosis may be considered. HLA testing may help with risk (more content not included)... Normal [facility] Influenza virus B Ag [Presen ce] in Upper respiratory specimen by Rapid immunoassayon 07-23-2023 FLUBV Ag IA.rapid Ql (Nph) Negative [facility] No Panel Informationon 07-22 Influenza Type A (Rapid) Negative [facility] POC SARS CoV-2 Antigen Negative [facility] No Panel InformationOrdered By: Chastity Bird on 07-23-2023 Quick Strep (POC) [facility] CT Chest WO contraston 07-19 IMPRESSION: 1. Patchy opacities and reticulonodular opacities in right lower lobe, most likely infectious/inflammatory in etiology, decreased since 05/05/23. Consider follow-up to complete resolution. 2. No evidence of new intrathoracic abnormalities since 05/05/23. Transcribe Date/Time: Jul 20 2023 2:44P Dictated by: ZACK LIVE MD This examination was interpreted and the report reviewed and electronically signed by: ZACK LIVE MD on Jul 20 2023 3:15PM EST Thank you for allowing us to participate in the care of your patient. Should there be any questions regarding this interpretation, please call [phone]. If you are unable to reach us at the number above, please feel free to contact [facility] at [phone]. DIVISION OF RADIOLOGY * * *Final Report* * * DATE OF EXAM: Jul 20 2023 8:30AM [facility] 0541 - CT CHEST WO IVCON / PROCEDURE REASON: Interstitial pulmonary disease (HCC) * * * * Physician Interpretation * * * * RESULT: EXAMINATION: CHEST CT WITHOUT CONTRAST CLINICAL HISTORY: Interstitial lung disease, malignant carcinoid tumor of the stomach Technique: Spiral CT acquisition of the chest from the thoracic inlet to the upper abdomen without contrast. MQ: CTCWO_6 CT Radiation dose: Integrated Dose-length product (DLP) for this visit = 290 mGy*cm CT Dose Reduction Employed: Automated exposure control (AEC) Comparison: 05/05/2023 and 11/30/2018 RESULT: Limitations: None. Lines, tubes, and devices: None. Lung parenchyma and airways: Patchy opacities with reticulonodular opacities in right lower lobe, decreased since 05/05/23. Additional 2 mm right apical nodular opacity (3:41), stable since 11/30/18 and greater than stability favors a benign etiology. No new airspace opacities.. The central airways are patent. Pleural space: No pleural effusion. No pleural thickening. Lower neck, lymph nodes, and mediastinum: The imaged thyroid gland is normal. No lymphadenopathy in the supraclavicular, axillary, mediastinal, or hilar regions. Nonspecific reticular anterior mediastinal soft tissue may be related to a residual thymus or thymic hyperplasia/rebound, stable since 05/05/23. Heart, pericardium, and thoracic vessels: The thoracic aorta and main pulmonary artery are normal in caliber. The cardiac chambers are normal in size. Atherosclerotic coronary artery calcifications are noted. No pericardial effusion or thickening. Bones and soft tissues: No suspicious lytic or blastic osseous lesions. Upper abdomen: Cholecystectomy clips are noted. Auditor Appraiser (topogram) images: No additional findings. DIVISION OF RADIOLOGY Provider, [facility] - 07/20/2023 * * *Final Report* * * DATE OF EXAM: Jul 20 2023 8:30AM [facility] 0541 - CT CHEST WO IVCON / PROCEDURE REASON: Interstitial pulmonary disease (HCC) * * * * Physician Interpretation * * * * RESULT: EXAMINATION: CHEST CT WITHOUT CONTRAST CLINICAL HISTORY: Interstitial lung disease, malignant carcinoid tumor of the stomach Technique: Spiral CT acquisition of the chest from the thoracic inlet to the upper abdomen without contrast. MQ: CTCWO_6 CT Radiation dose: Integrated Dose-length product (DLP) for this visit = 290 mGy*cm CT Dose Reduction Employed: Automated exposure control (AEC) Comparison: 05/05/2023 and 11/30/2018 RESULT: Limitations: None. Lines, tubes, and devices: None. Lung parenchyma and airways: Patchy opacities with reticulonodular opacities in right lower lobe, decreased since 05/05/23. Additional 2 mm right apical nodular opacity (3:41), stable since 11/30/18 and greater than stability favors a benign etiology. No new airspace opacities.. The central airways are patent. Pleural space: No pleural effusion. No pleural thickening. Lower neck, lymph nodes, and mediastinum: The imaged thyroid gland is normal. No lymphadenopathy in the supraclavicular, axillary, mediastinal, or hilar regions. Nonspecific reticular anterior mediastinal soft tissue may be related to a residual thymus or thymic hyperplasia/rebound, stable since 05/05/23. Heart, pericardium, and thoracic vessels: The thoracic aorta and main pulmonary artery are normal in caliber. The cardiac chambers are normal in size. Atherosclerotic coronary artery calcifications are noted. No pericardial effusion or thickening. Bones and soft tissues: No suspicious lytic or blastic osseous lesions. Upper abdomen: Cholecystectomy clips are noted. Auditor Appraiser (topogram) images: No additional findings. IMPRESSION IMPRESSION: 1. Patchy opacities and reticulonodular opacities in right lower lobe, most likely infectious/inflammatory in etiology, decreased since 05/05/23. Consider follow-up to complete resolution. 2. No evidence of new intrathoracic abnormalities since 05/05/23. Transcribe Date/Time: Jul 20 2023 2:44P Dictated by: ZACK LIVE MD This examination was interpreted and the report reviewed and electronically signed by: ZACK LIVE MD on Jul 20 2023 3:15PM EST Thank you for allowing us to participate in the care of your patient. Should there be any questions regarding this interpretation, please call [phone]. If you are unable to reach us at the number above, please feel free to contact [facility] eRadiology at [phone]. [facility] Radiology Study observation (narrative) Pradip murillo [facility] CT Chest WO contrastOrdered By: Ccf Provider on 07-20-2023 [facility] No Panel InformationOrdered By: Pat Barnett on 07-16-2023 Quick Strep (POC) [facility] US THYROID/PARATHYROIDon US THYROID/PARATHYROID * * *Final Report * * * DATE OF EXAM: Jun 30 2023 10:30AM JEFFREY 1048 - US THYROID/PARATHYROID / PROCEDURE REASON: E04.1-Thyroid nodule * * * * Physician Interpretation * * * * EXAMINATION: THYROID ULTRASOUND CLINICAL HISTORY: Thyroid nodule . Follow-up nodule TECHNIQUE: Sonography and Doppler imaging of the thyroid was performed. Images were obtained and stored in a permanent archive. MQ: UST_1 COMPARISON: 11/11/2022 RESULT: The thyroid gland is normal size. The right thyroid lobe measures 4.5 x 1.3 x 1 cm. The left thyroid lobe measures 4.2 x 1.2 x 1.3 cm. The thyroid isthmus measures 3 mm in thickness. Parenchyma: The parenchyma is homogeneous. NODULES: Single thyroid nodule detailed below. Nodule #1 Location: Right midpole Size: 5 x 4 x 3 mm ; probably similar to prior study but not discretely measured on prior images Characteristics: Composition: Solid or almost completely solid, 2 points Echogenicity: Hypoechoic, 2 points Shape: [id number], 0 points Margin: Smooth, 0 points Echogenic foci: None, 0 points TI-RADS Category: 4 ACR Recommendation: No FNA or follow-up imaging is advised. - IMPRESSION: 5 mm thyroid nodule ACR Recommendation: TI-RADS 4 nodule less than 1 cm in size. No FNA or follow-up imaging is advised. ACR recommendations are strictly based on the size and imaging appearance at the time of the exam and do not consider stability or previous biopsy results. Pantograph Machine Set Up Operator: PSCB Transcribe Date/Time: Jul 02 2023 7:36A Dictated by : SEAMUS MORENO MD This examination was interpreted and the report reviewed and electronically signed by: SEAMUS MORENO MD on Jul 02 2023 7:37AM EST [id number] [facility] Activated partial thrombopla stin time (aPTT) in platelet poor plasma by coagulation aOrdered By: PROVIDER TEMP on 06-09-2023 aPTT Coag (PPP) [Time] 30.1 s 25.1-36.5 [facility] Comment on above: A hematocrit value g reater than 55% may lead to inaccurate results in coagulation testing. Patients having hematocrit values >55% require a special collection tube for coagulation studies. Please contact the laboratory at [phone] for redraw instructions. Basophils Auto (Bld) [#/Vol] Ordered By: PROVIDER TEMP on 06-09-2023 Basophils (Bld) [#/Vol] 0.1 10*3/uL 0.0-0.2 [facility] Basophils/100 WBC Auto (Bld) Ordered By: PROVIDER TEMP on 06-09-2023 Basophils/100 WBC (Bld) 1.1 % . [facility] Bilirubin Test strip Ql (U)O rdered By: PROVIDER TEMP on 06-09-2023 Bilirubin Ql (U) Negative Negative [facility] Calcium [Mass/volume] in Ser um or PlasmaOrdered By: PROVIDER TEMP on 06-09-2023 Calcium [Mass/Vol] 10.1 mg/dL 8.6-10.3 [facility] Carbon dioxide, total [Moles /volume] in Serum or PlasmaOrdered By: PROVIDER TEMP on 06-09-2023 CO2 [Moles/Vol] 27.2 mmol/L 21.0-31.0 [facility] Chloride [Moles/volume] in S samson or PlasmaOrdered By: PROVIDER TEMP on 06-09-2023 Chloride [Moles/Vol] 108 mmol/L 98-107 [facility] Color Auto (U)Ordered By: EMILY REED TEMP on 06-09-2023 Color (U) Yellow Yellow [facility] Creatine kinase [Enzymatic a ctivity/volume] in Serum or PlasmaOrdered By: PROVIDER TEMP on 06-09-2023 CK [Catalytic activity/Vol] 128 U/L 30-223 [facility] Creatinine [Mass/volume] in Serum or PlasmaOrdered By: PROVIDER TEMP on 06-09-2023 Creatinine [Mass/Vol] 0.70 mg/dL 0.60-1.20 [facility] Eosinophils Auto (Bld) [#/Vo l]Ordered By: PROVIDER TEMP on 06-09-2023 Eosinophils (Bld) [#/Vol] 0.1 10*3/uL 0.0-0.45 [facility] Eosinophils/100 WBC Auto (Bl d)Ordered By: PROVIDER TEMP on 06-09-2023 Eosinophils/100 WBC (Bld) 2.1 % . [facility] Erythrocyte distribution wid th Auto (RBC) [Ratio]Ordered By: PROVIDER TEMP on 06-09-2023 Erythrocyte distribution width (RBC) [Ratio] 14.1 % 11.9-15.3 [facility] Glucose [Mass/volume] in Ser um or PlasmaOrdered By: PROVIDER TEMP on 06-09-2023 Glucose [Mass/Vol] 91 mg/dL 70-100 [facility] Comment on above: ADA recommended refe rence rangeRandom Glucose Reference Range is dependent on time and content of last meal. Glucose of more than 200 mg/dL in a nonstressed, ambulatory subject supports the diagnosis of Diabetes Mellitus. Hematocrit Auto (Bld) [Volum e fraction]Ordered By: PROVIDER TEMP on 06-09-2023 Hematocrit (Bld) [Volume fraction] 39.5 % 34.0-46.4 [facility] Hemoglobin [Mass/volume] in BloodOrdered By: PROVIDER TEMP on 06-09-2023 Hemoglobin (Bld) [Mass/Vol] 13.1 g/dL 11.8-15.4 [facility] INR in Platelet poor plasma by Coagulation assayOrdered By: PROVIDER TEMP on 06-09-2023 INR Coag (PPP) [Relative time] 1.0 {INR} [facility] Comment on above: INR Therapeutic Rang e A) Pre- and Peroperative OAT started two weeks before surgery. NOT HIP SURGERY: 1.5 - 2.5 HIP SURGERY: 2 - 3B) Primary and secondary prevention of venous THROMBOSIS: 2 - 3C) Active venous thrombosis, pulmonary embolismand prevention of recurrent venous thrombosis: 2 - 3D) Prevention of arterial thromboembolismincluding patients with mechanical heart valves: 3 - 4.5 Ketones Auto test strip (U) [Mass/Vol]Ordered By: PROVIDER TEMP on 06-09-2023 Ketones (U) [Mass/Vol] Negative Negative [facility] Leukocytes [#/volume] correc thor for nucleated erythrocytes in Blood by Automated counOrdered By: PROVIDER TEMP on 06-09-2023 WBC corrected for nucl RBC Auto (Bld) [#/Vol] 6.4 10*3/uL 3.8-11.6 [facility] Lipase [Enzymatic activity/v olume] in Serum or PlasmaOrdered By: Gisell Howard on 06-09-2023 Lipase [Catalytic activity/Vol] 35.0 U/L 11.0-82.0 [facility] Lymphocytes Auto (Bld) [#/Vo l]Ordered By: PROVIDER TEMP on 06-09-2023 Lymphocytes (Bld) [#/Vol] 2.3 10*3/uL 1.00-4.8 [facility] Lymphocytes/100 WBC Auto (Bl d)Ordered By: PROVIDER TEMP on 06-09-2023 Lymphocytes/100 WBC (Bld) 36.4 % . [facility] MCH Auto (RBC) [Entitic mass ]Ordered By: PROVIDER TEMP on 06-09-2023 MCH (RBC) [Entitic mass] 28.3 pg 24.7-34.3 [facility] MCHC Auto (RBC) [Mass/Vol]Or dered By: PROVIDER TEMP on 06-09-2023 MCHC (RBC) [Mass/Vol] 33.2 g/dL 32.0-35.0 [facility] MCV Auto (RBC) [Entitic vol] Ordered By: PROVIDER TEMP on 06-09-2023 MCV (RBC) [Entitic vol] 85.2 fL 80-100 [facility] Monocyte distribution width [Entitic volume] in Blood by AutomatedOrdered By: PROVIDER TEMP on 06-09-2023 Monocyte distribution width Auto (Bld) [Entitic vol] 17.85 % 0.00-20.00 [facility] Monocytes Auto (Bld) [#/Vol] Ordered By: PROVIDER TEMP on 06-09-2023 Monocytes (Bld) [#/Vol] 0.4 10*3/uL 0.0-0.8 [facility] Monocytes/100 WBC Auto (Bld) Ordered By: PROVIDER TEMP on 06-09-2023 Monocytes/100 WBC (Bld) 6.9 % . [facility] Natriuretic peptide B [Mass/ Vol]Ordered By: PROVIDER TEMP on 06-09-2023 Natriuretic peptide B (Bld) [Mass/Vol] 4.0 pg/mL 5-100 [facility] Neutrophils Auto (Bld) [#/Vo l]Ordered By: PROVIDER TEMP on 06-09-2023 Neutrophils (Bld) [#/Vol] 3.4 10*3/uL 1.8-7.7 [facility] Neutrophils/100 WBC Auto (Bl d)Ordered By: PROVIDER TEMP on 06-09-2023 Neutrophils/100 WBC (Bld) 53.5 % . [facility] Nitrite Test strip Ql (U)Ord ered By: PROVIDER TEMP on 06-09-2023 Nitrite Ql (U) Negative Negative [facility] No Panel InformationOrdered By: PROVIDER TEMP on 06-09-2023 Estimated GFR (CKD-EPI) > 60.0 mL/Min [facility] Creatinine Clearance (Chem 93.64 [facility] Nucleated erythrocytes [Pres ence] in Blood by Automated countOrdered By: PROVIDER TEMP on 06-09-2023 Nucleated RBC Auto Ql (Bld) 0.1 /100{WBC} 0-0.5 [facility] Platelet mean volume Auto (B ld) [Entitic vol]Ordered By: PROVIDER TEMP on 06-09-2023 Platelet mean volume (Bld) [Entitic vol] 7.7 fL 6.3-10.7 [facility] Platelets Auto (Bld) [#/Vol] Ordered By: PROVIDER TEMP on 06-09-2023 Platelets (Bld) [#/Vol] 255 10*3/uL 150-450 [facility] Potassium [Moles/volume] in Serum or PlasmaOrdered By: PROVIDER TEMP on 06-09-2023 Potassium [Moles/Vol] 4.5 mmol/L 3.5-5.1 [facility] Protein Auto test strip (U) [Mass/Vol]Ordered By: PROVIDER TEMP on 06-09-2023 Protein (U) [Mass/Vol] Negative Negative [facility] Prothrombin time (PT)Ordered By: PROVIDER TEMP on 06-09-2023 PT Coag (PPP) [Time] 11.1 s 9.0-12.9 [facility] Comment on above: A hematocrit value g reater than 55% may lead to inaccurate results in coagulation testing. Patients having hematocrit values >55% require a special collection tube for coagulation studies. Please contact the laboratory at [phone] for redraw instructions. RBC Auto (Bld) [#/Vol]Ordere d By: PROVIDER TEMP on 06-09-2023 RBC (Bld) [#/Vol] 4.64 10*6/uL 3.60-5.00 [facility] Serum or plasma anion gap de terminationOrdered By: PROVIDER TEMP on 06-09-2023 Anion gap [Moles/Vol] 11.3 mmol/L 6.0-15.0 [facility] Sodium [Moles/volume] in Ser um or PlasmaOrdered By: PROVIDER TEMP on 06-09-2023 Sodium [Moles/Vol] 142 mmol/L 136-145 [facility] Specific gravity Auto test s trip (U) [Rel density]Ordered By: PROVIDER TEMP on 06-09-2023 Specific gravity (U) [Rel density] 1.029 1.001-1.03 0 [facility] Troponin I.cardiac [Mass/vol ume] in Serum or Plasma by Detection limit <= 0.01 ng/Ordered By: PROVIDER TEMP on 06-09-2023 Troponin I.cardiac DL <= 0.01 ng/mL [Mass/Vol] < 2.3 pg/mL 0.0-15.0 [facility] Urea nitrogen [Mass/volume] in Serum or PlasmaOrdered By: PROVIDER TEMP on 06-09-2023 Urea nitrogen [Mass/Vol] 16 mg/dL 7-25 [facility] Urine clarity by refractomet ry automatedOrdered By: PROVIDER TEMP on 06-09-2023 Clarity Refractometry automated (U) Clear Clear [facility] Urine glucose measurement by automated test strip (mass/volume)Ordered By: PROVIDER TEMP on 06-09-2023 Glucose Auto test strip (U) [Mass/Vol] Normal mg/dL Normal [facility] Urine hemoglobin detection b y automated test stripOrdered By: PROVIDER TEMP on 06-09-2023 Hemoglobin Auto test strip Ql (U) Negative Negative [facility] Urine leukocyte esterase det ection by automated test stripOrdered By: PROVIDER TEMP on 06-09-2023 Leukocyte esterase Auto test strip Ql (U) Negative Negative [facility] Urobilinogen Auto test strip (U) [Mass/Vol]Ordered By: PROVIDER TEMP on 06-09-2023 Urobilinogen (U) [Mass/Vol] Normal mg/dL Normal [facility] WBC Auto (Bld) [#/Vol]Ordere d By: PROVIDER TEMP on 06-09-2023 WBC (Bld) [#/Vol] 6.4 10*3/uL 3.8-11.6 [facility] pH Auto test strip (U)Ordere d By: PROVIDER TEMP on 06-09-2023 pH (U) 5.5 [pH] 5.0-9.[address] [facility] [address] Chest WO contrastOrdered By: Ccf Provider on 05-05-2023 Interpretation and review of laboratory results Abnormal [facility] Radiology Result ACTIONABLE Abnormal [facility] Comment on above: This report contains an incidental or actionable finding. This finding may be a new finding separate from the reason your provider ordered the imaging test or it may be an already known finding that needs additional or continued follow-up. Because of this incidental or actionable finding, you may need another test (imaging or a different type of test). Please contact your provider for the next steps. [facility] CT Chest WO contraston 05-05 IMPRESSION: 1. Patchy and nodular right lung base airspace opacities, favored to be infectious/inflammatory. Follow-up to resolution is suggested. 2. Nonspecific noncalcified right lower lobe pulmonary nodules measuring up to 0.5 cm are unchanged. 3. No lymphadenopathy. 4. Please refer to concurrently acquired and separately reported abdomen CT for findings related to the upper abdomen. ACTIONABLE RESULT: FOLLOW-UP Acuity: Actionable Findings: Thoracic-Other Routing Code: CT_1 Recommendation: CT Chest WO IVCON Time Frame: 3-6 months COMMUNICATION: Results will be communicated with the ordering provider via [employer] staff message or phone message by [facility] [employer] within 2 business days of report finalization. --END OF FINDING-- Transcribe Date/Time: May 05 2023 11:02A Dictated by: LINCOLN ALONZO MD This examination was interpreted and the report reviewed and electronically signed by: ILNCOLN ALONZO MD on May 05 2023 11:11AM EST Thank you for allowing us to participate in the care of your patient. Should there be any questions regarding this interpretation, please call [phone]. If you are unable to reach us at the number above, please feel free to [facility] at [phone]. 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 Lung nodules. Technique: Spiral CT acquisition of the chest from the thoracic inlet to the upper abdomen without contrast. MQ: CTCWO_6 CT Radiation dose: Integrated Dose-length product (DLP) for this visit = 288 mGy*cm CT Dose Reduction Employed: Automated exposure control (AEC) Comparison: PET/CT for 1321; CT abdomen/pelvis 07/06/2021; CT chest 06/12/2019 RESULT: Limitations: None. Lines, tubes, and devices: None. Lung parenchyma and airways: There are new patchy and nodular right lower lobe airspace opacities (series 4, image 166-161), likely infectious/inflammatory. There is unchanged atelectasis/scarring along the medial right lung base. The central airways are patent. Again noted are nonspecific noncalcified pulmonary nodules, with sales training representative examples detailed as follows on series 4: -Image 160, right lower lobe, 0.5 cm (unchanged) -Image 166, right lower lobe, 0.5 cm (unchanged) Pleural space: No pleural effusion. No pleural thickening. Lower neck, lymph nodes, and mediastinum: The imaged thyroid is unremarkable. No supraclavicular, axillary, mediastinal, or hilar lymphadenopathy. Heart, pericardium, and thoracic vessels: The thoracic aorta and main pulmonary artery are normal in caliber. The cardiac chambers are normal in size. Coronary artery atherosclerotic calcifications are noted, although the study is not optimized for coronary assessment. There is a trace pericardial effusion. Bones and soft tissues: Degenerative change involves the thoracic spine. No destructive lytic or blastic osseous abnormality. Upper abdomen: Please refer to concurrently acquired and separately reported abdomen CT for findings related to the upper abdomen. Auditor Appraiser (topogram) images: No additional findings. 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 Lung nodules. Technique: Spiral CT acquisition of the chest from the thoracic inlet to the upper abdomen without contrast. MQ: CTCWO_6 CT Radiation dose: Integrated Dose-length product (DLP) for this visit = 288 mGy*cm CT Dose Reduction Employed: Automated exposure control (AEC) Comparison: PET/CT for 1321; CT abdomen/pelvis 07/06/2021; CT chest 06/12/2019 RESULT: Limitations: None. Lines, tubes, and devices: None. Lung parenchyma and airways: There are new patchy and nodular right lower lobe airspace opacities (series 4, image 166-161), likely infectious/inflammatory. There is unchanged atelectasis/scarring along the medial right lung base. The central airways are patent. Again noted are nonspecific noncalcified pulmonary nodules, with sales training representative examples detailed as follows on series 4: -Image 160, right lower lobe, 0.5 cm (unchanged) -Image 166, right lower lobe, 0.5 cm (unchanged) Pleural space: No pleural effusion. No pleural thickening. Lower neck, lymph nodes, and mediastinum: The imaged thyroid is unremarkable. No supraclavicular, axillary, mediastinal, or hilar lymphadenopathy. Heart, pericardium, and thoracic vessels: The thoracic aorta and main pulmonary artery are normal in caliber. The cardiac chambers are normal in size. Coronary artery atherosclerotic calcifications are noted, although the study is not optimized for coronary assessment. There is a trace pericardial effusion. Bones and soft tissues: Degenerative change involves the thoracic spine. No destructive lytic or blastic osseous abnormality. Upper abdomen: Please refer to concurrently acquired and separately reported abdomen CT for findings related to the upper abdomen. Auditor Appraiser (topogram) images: No additional findings. IMPRESSION IMPRESSION: 1. Patchy and nodular right lung base airspace opacities, favored to be infectious/inflammatory. Follow-up to resolution is suggested. 2. Nonspecific noncalcified right lower lobe pulmonary nodules measuring up to 0.5 cm are unchanged. 3. No lymphadenopathy. 4. Please refer to concurrently acquired and separately reported abdomen CT for findings related to the upper abdomen. ACTIONABLE RESULT: FOLLOW-UP Acuity: Actionable Findings: Thoracic-Other Routing Code: CT_1 Recommendation: CT Chest WO IVCON Time Frame: 3-6 months COMMUNICATION: Results will be communicated with the ordering provider via [employer] staff message or phone message by [facility] within 2 business days of report finalization. --END OF FINDING-- Transcribe Date/Time: May 05 2023 11:02A Dictated by: LINCOLN ALONZO MD This examination was interpreted and the report reviewed and electronically signed by: LINCOLN ALONZO MD on May 05 2023 11:11AM EST Thank you for allowing us to participate in the care of your patient. Should there be any questions regarding this interpretation, please call [phone]. If you are unable to reach us at the number above, please feel free to contact [facility] eRadiology at [phone]. [facility] Radiology Study observation (narrative) [facility] Activated partial thrombopla stin time (aPTT) in platelet poor plasma by coagulation aOrdered By: Abena Diane on 04-27-2023 aPTT Coag (PPP) [Time] 29.8 s 25.1-36.5 [facility] Comment on above: A hematocrit value g reater than 55% may lead to inaccurate results in coagulation testing. Patients having hematocrit values >55% require a special collection tube for coagulation studies. Please contact the laboratory at [phone] for redraw instructions. Alanine aminotransferase [En zymatic activity/volume] in Serum or PlasmaOrdered By: Abena Diane on 04-27-2023 ALT [Catalytic activity/Vol] 15 U/L [facility] Albumin [Mass/volume] in Ser um or Plasma by Bromocresol green (BCG) dye binding methoOrdered By: Abena Diane on 04-27-2023 Albumin BCG dye [Mass/Vol] 4.7 g/dL 3.5-5.7 [facility] Alkaline phosphatase [Enzyma tic activity/volume] in Serum or PlasmaOrdered By: Abena Diane on 04-27-2023 ALP [Catalytic activity/Vol] 50 U/L 34-104 [facility] Aspartate aminotransferase [ Enzymatic activity/volume] in Serum or PlasmaOrdered By: Abena Diane on 04-27-2023 AST [Catalytic activity/Vol] 23 U/L 13-39 [facility] Basophils Auto (Bld) [#/Vol] Ordered By: PROVIDER TEMP on 04-27-2023 Basophils (Bld) [#/Vol] 0.1 10*3/uL 0.0-0.2 [facility] Basophils/100 WBC Auto (Bld) Ordered By: PROVIDER TEMP on 04-27-2023 Basophils/100 WBC (Bld) 0.9 % . [facility] Bilirubin.total [Mass/volume ] in Serum or PlasmaOrdered By: Abena Diane on 04-27-2023 Bilirubin [Mass/Vol] 0.3 mg/dL 0.3-1.0 [facility] Calcium [Mass/volume] in Ser um or PlasmaOrdered By: Abena Diane on 04-27-2023 Calcium [Mass/Vol] 9.6 mg/dL 8.6-10.3 [facility] Carbon dioxide, total [Moles /volume] in Serum or PlasmaOrdered By: Abena Diane on 04-27-2023 CO2 [Moles/Vol] 28.6 mmol/L 21.0-31.0 [facility] Chloride [Moles/volume] in S samson or PlasmaOrdered By: Abena Diane on 04-27-2023 Chloride [Moles/Vol] 106 mmol/L 98-107 [facility] Creatine kinase [Enzymatic a ctivity/volume] in Serum or PlasmaOrdered By: Abena Daine on 04-27-2023 CK [Catalytic activity/Vol] 81 U/L 30-223 [facility] Creatinine [Mass/volume] in Serum or PlasmaOrdered By: Abena Diane on 04-27-2023 Creatinine [Mass/Vol] 0.87 mg/dL 0.60-1.20 [facility] Eosinophils Auto (Bld) [#/Vo l]Ordered By: PROVIDER TEMP on 04-27-2023 Eosinophils (Bld) [#/Vol] 0.1 10*3/uL 0.0-0.45 [facility] Eosinophils/100 WBC Auto (Bl d)Ordered By: PROVIDER TEMP on 04-27-2023 Eosinophils/100 WBC (Bld) 1.9 % . [facility] Erythrocyte distribution wid th Auto (RBC) [Ratio]Ordered By: PROVIDER TEMP on 04-27-2023 Erythrocyte distribution width (RBC) [Ratio] 14.0 % 11.9-15.3 [facility] Globulin Calc (S) [Mass/Vol] Ordered By: Abena Diane on 04-27-2023 Globulin (S) [Mass/Vol] 2.7 g/dL [facility] Glucose [Mass/volume] in Ser um or PlasmaOrdered By: Abena Diane on 04-27-2023 Glucose [Mass/Vol] 96 mg/dL 70-100 [facility] Comment on above: ADA recommended refe rence rangeRandom Glucose Reference Range is dependent on time and content of last meal. Glucose of more than 200 mg/dL in a nonstressed, ambulatory subject supports the diagnosis of Diabetes Mellitus. Hematocrit Auto (Bld) [Volum e fraction]Ordered By: PROVIDER TEMP on 04-27-2023 Hematocrit (Bld) [Volume fraction] 39.2 % 34.0-46.4 [facility] Hemoglobin [Mass/volume] in BloodOrdered By: PROVIDER TEMP on 04-27-2023 Hemoglobin (Bld) [Mass/Vol] 13.0 g/dL 11.8-15.4 [facility] INR in Platelet poor plasma by Coagulation assayOrdered By: Abena Diane on 04-27-2023 INR Coag (PPP) [Relative time] 0.9 {INR} [facility] Comment on above: INR Therapeutic Rang e A) Pre- and Peroperative OAT started two weeks before surgery. NOT HIP SURGERY: 1.5 - 2.5 HIP SURGERY: 2 - 3B) Primary and secondary prevention of venous THROMBOSIS: 2 - 3C) Active venous thrombosis, pulmonary embolismand prevention of recurrent venous thrombosis: 2 - 3D) Prevention of arterial thromboembolismincluding patients with mechanical heart valves: 3 - 4.5 Leukocytes [#/volume] correc thor for nucleated erythrocytes in Blood by Automated counOrdered By: PROVIDER TEMP on 04-27-2023 WBC corrected for nucl RBC Auto (Bld) [#/Vol] 7.4 10*3/uL 3.8-11.6 [facility] Lymphocytes Auto (Bld) [#/Vo l]Ordered By: PROVIDER TEMP on 04-27-2023 Lymphocytes (Bld) [#/Vol] 2.7 10*3/uL 1.00-4.8 [facility] Lymphocytes/100 WBC Auto (Bl d)Ordered By: PROVIDER TEMP on 04-27-2023 Lymphocytes/100 WBC (Bld) 37.1 % . [facility] MCH Auto (RBC) [Entitic mass ]Ordered By: PROVIDER TEMP on 04-27-2023 MCH (RBC) [Entitic mass] 28.2 pg 24.7-34.3 [facility] MCHC Auto (RBC) [Mass/Vol]Or dered By: PROVIDER TEMP on 04-27-2023 MCHC (RBC) [Mass/Vol] 33.2 g/dL 32.0-35.0 [facility] MCV Auto (RBC) [Entitic vol] Ordered By: PROVIDER TEMP on 04-27-2023 MCV (RBC) [Entitic vol] 84.9 fL 80-100 [facility] Monocyte distribution width [Entitic volume] in Blood by AutomatedOrdered By: PROVIDER TEMP on 04-27-2023 Monocyte distribution width Auto (Bld) [Entitic vol] 17.57 % 0.00-20.00 [facility] Monocytes Auto (Bld) [#/Vol] Ordered By: PROVIDER TEMP on 04-27-2023 Monocytes (Bld) [#/Vol] 0.6 10*3/uL 0.0-0.8 [facility] Monocytes/100 WBC Auto (Bld) Ordered By: PROVIDER TEMP on 04-27-2023 Monocytes/100 WBC (Bld) 7.8 % . [facility] Neutrophils Auto (Bld) [#/Vo l]Ordered By: PROVIDER TEMP on 04-27-2023 Neutrophils (Bld) [#/Vol] 3.9 10*3/uL 1.8-7.7 [facility] Neutrophils/100 WBC Auto (Bl d)Ordered By: PROVIDER TEMP on 04-27-2023 Neutrophils/100 WBC (Bld) 52.3 % . [facility] No Panel InformationOrdered By: Abena Diane on 04-27-2023 Estimated GFR (CKD-EPI) > 60.0 mL/Min [facility] Creatinine Clearance (Chem 76.32 [facility] Nucleated erythrocytes [Pres ence] in Blood by Automated countOrdered By: PROVIDER TEMP on 04-27-2023 Nucleated RBC Auto Ql (Bld) 0.1 /100{WBC} 0-0.5 [facility] Platelet mean volume Auto (B ld) [Entitic vol]Ordered By: PROVIDER TEMP on 04-27-2023 Platelet mean volume (Bld) [Entitic vol] 7.6 fL 6.3-10.7 [facility] Platelets Auto (Bld) [#/Vol] Ordered By: PROVIDER TEMP on 04-27-2023 Platelets (Bld) [#/Vol] 263 10*3/uL 150-450 [facility] Potassium [Moles/volume] in Serum or PlasmaOrdered By: Abena Diane on 04-27-2023 Potassium [Moles/Vol] 3.7 mmol/L 3.5-5.1 [facility] Protein [Mass/volume] in Ser um or PlasmaOrdered By: Abena Diane on 04-27-2023 Protein [Mass/Vol] 7.4 g/dL 6.4-8.9 [facility] Prothrombin time (PT)Ordered By: Abena Diane on 04-27-2023 PT Coag (PPP) [Time] 11.0 s 9.0-12.9 [facility] Comment on above: A hematocrit value g reater than 55% may lead to inaccurate results in coagulation testing. Patients having hematocrit values >55% require a special collection tube for coagulation studies. Please contact the laboratory at [phone] for redraw instructions. RBC Auto (Bld) [#/Vol]Ordere d By: PROVIDER TEMP on 04-27-2023 RBC (Bld) [#/Vol] 4.61 10*6/uL 3.60-5.00 [facility] Serum or plasma albumin/glob ulin mass ratioOrdered By: Abena Diane on 04-27-2023 Albumin/Globulin [Mass ratio] 1.7 {ratio} [facility] Serum or plasma anion gap de terminationOrdered By: Abena Diane on 04-27-2023 Anion gap [Moles/Vol] 9.1 mmol/L 6.0-15.0 [facility] Sodium [Moles/volume] in Ser um or PlasmaOrdered By: Abena Diane on 04-27-2023 Sodium [Moles/Vol] 140 mmol/L 136-145 [facility] Troponin I.cardiac [Mass/vol ume] in Serum or Plasma by Detection limit <= 0.01 ng/Ordered By: Abena Diane on 04-27-2023 Troponin I.cardiac DL <= 0.01 ng/mL [Mass/Vol] < 2.3 pg/mL 0.0-15.0 [facility] Urea nitrogen [Mass/volume] in Serum or PlasmaOrdered By: Abena Diane on 04-27-2023 Urea nitrogen [Mass/Vol] 13 mg/dL 7-25 [facility] WBC Auto (Bld) [#/Vol]Ordere d By: PROVIDER TEMP on 04-27-2023 WBC (Bld) [#/Vol] 7.4 10*3/uL 3.8-11.6 [facility] CT Abdomen and Pelvis W cont rast Yvette 04-19-2023 IMPRESSION: 1. Stable CT examination of the abdomen and pelvis. No substantial intra-abdominal or pelvic lymphadenopathy is appreciated. 2. Incidental note is again made of right-sided nonobstructive nephrolithiasis. 3. Newly apparent right lower lobe airspace opacities, likely infectious/inflammatory in nature, correlation with follow-up examinations is recommended to assess for clearing. Transcribe Date/Time: Apr 19 2023 11:24A Dictated by: DEBRA WALKER MD This examination was interpreted and the report reviewed and electronically signed by: DEBRA WALKER MD on Apr 19 2023 12:52PM EST Thank you for allowing us to participate in the care of your patient. Should there be any questions regarding this interpretation, please call [phone]. If you are unable to reach us at the number above, please feel free to contact [facility] eRadiology at [phone]. 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 TECHNIQUE: CT of the abdomen and pelvis was performed using standard technique, scanning from just above the dome of the diaphragm to the symphysis pubis. MQ: CTAP_3 Contrast: IV: 150 ml of Omnipaque 300 Oral: 500 ml of Omni 240 10-25ml diluted with water CT Radiation dose: Integrated Dose-length product (DLP) for this visit = 925 mGy*cm. CT Dose Reduction Employed: Automated exposure control (AEC) COMPARISON: 07/23/2020. RESULT: Liver: Mild, diffuse hepatic steatosis. Subcentimeter right lobe hypodensity is difficult to fully characterize, however, likely relates to a cyst. Biliary Tract: No bile duct dilation. The gallbladder is surgically absent. Mild prominence to the intrahepatic and extrahepatic biliary tree, likely postoperative in nature, stable. Spleen: No splenomegaly. No mass. Pancreas: No mass or ductal dilatation. Adrenal glands: No mass. Kidneys: No enhancing mass or hydronephrosis. 4 mm right renal hypodensity, stable, likely related to a cyst. 3 mm or less midpole nonobstructive calculi are again appreciated. GI Tract: No bowel wall thickening or dilation. Scattered diverticula within the sigmoid colon, without CT evidence for acute diverticulitis. Lymph nodes: No substantial abdominal or pelvic lymphadenopathy is appreciated. Mesentery/Peritoneum: No ascites or mass. Retroperitoneum: No mass. Vasculature: - Abdominal aorta and iliac arteries: Atherosclerotic calcifications without aneurysm. - Celiac and SMA: Patent. - Portal venous system (SMV, splenic vein, portal vein and branches): Patent. - Hepatic veins: Patent. Pelvis: No free fluid or pelvic mass. The unopacified urinary bladder appears unremarkable. The uterus is absent. No substantial inguinal adenopathy.. Bones/Soft Tissues: Degenerative change involving the lumbar spine. No osseous destructive process. Lower Thorax: Newly apparent airspace opacity within the right lower lobe, likely infectious/inflammatory in nature, although, the possibility of metastases cannot be excluded. Auditor Appraiser (topogram) images: No additional findings. 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 TECHNIQUE: CT of the abdomen and pelvis was performed using standard technique, scanning from just above the dome of the diaphragm to the symphysis pubis. MQ: CTAP_3 Contrast: IV: 150 ml of Omnipaque 300 Oral: 500 ml of Omni 240 10-25ml diluted with water CT Radiation dose: Integrated Dose-length product (DLP) for this visit = 925 mGy*cm. CT Dose Reduction Employed: Automated exposure control (AEC) COMPARISON: 07/23/2020. RESULT: Liver: Mild, diffuse hepatic steatosis. Subcentimeter right lobe hypodensity is difficult to fully characterize, however, likely relates to a cyst. Biliary Tract: No bile duct dilation. The gallbladder is surgically absent. Mild prominence to the intrahepatic and extrahepatic biliary tree, likely postoperative in nature, stable. Spleen: No splenomegaly. No mass. Pancreas: No mass or ductal dilatation. Adrenal glands: No mass. Kidneys: No enhancing mass or hydronephrosis. 4 mm right renal hypodensity, stable, likely related to a cyst. 3 mm or less midpole nonobstructive calculi are again appreciated. GI Tract: No bowel wall thickening or dilation. Scattered diverticula within the sigmoid colon, without CT evidence for acute diverticulitis. Lymph nodes: No substantial abdominal or pelvic lymphadenopathy is appreciated. Mesentery/Peritoneum: No ascites or mass. Retroperitoneum: No mass. Vasculature: - Abdominal aorta and iliac arteries: Atherosclerotic calcifications without aneurysm. - Celiac and SMA: Patent. - Portal venous system (SMV, splenic vein, portal vein and branches): Patent. - Hepatic veins: Patent. Pelvis: No free fluid or pelvic mass. The unopacified urinary bladder appears unremarkable. The uterus is absent. No substantial inguinal adenopathy.. Bones/Soft Tissues: Degenerative change involving the lumbar spine. No osseous destructive process. Lower Thorax: Newly apparent airspace opacity within the right lower lobe, likely infectious/inflammatory in nature, although, the possibility of metastases cannot be excluded. Auditor Appraiser (topogram) images: No additional findings. IMPRESSION IMPRESSION: 1. Stable CT examination of the abdomen and pelvis. No substantial intra-abdominal or pelvic lymphadenopathy is appreciated. 2. Incidental note is again made of right-sided nonobstructive nephrolithiasis. 3. Newly apparent right lower lobe airspace opacities, likely infectious/inflammatory in nature, correlation with follow-up examinations is recommended to assess for clearing. Transcribe Date/Time: Apr 19 2023 11:24A Dictated by: DEBRA WALKER MD This examination was interpreted and the report reviewed and electronically signed by: DEBRA WALKER MD on Apr 19 2023 12:52PM EST Thank you for allowing us to participate in the care of your patient. Should there be any questions regarding this interpretation, please call [phone]. If you are unable to reach us at the number above, please feel free to contact [facility] eRadiology at [phone]. [facility] Radiology Study observation (narrative) Pradip murillo [facility] CT Abdomen and Pelvis W cont rast IVOrdered By: Ccf Provider on 04-19-2023 [facility] Alanine aminotransferase [En zymatic activity/volume] in Serum or PlasmaOrdered By: Trey Brown on 04-06-2023 ALT [Catalytic activity/Vol] 14 U/L [facility] Albumin [Mass/volume] in Ser um or Plasma by Bromocresol green (BCG) dye binding methoOrdered By: Trey Brown on 04-06-2023 Albumin BCG dye [Mass/Vol] 4.5 g/dL 3.5-5.7 [facility] Alkaline phosphatase [Enzyma tic activity/volume] in Serum or PlasmaOrdered By: Trey Brown on 04-06-2023 ALP [Catalytic activity/Vol] 55 U/L 34-104 [facility] Aspartate aminotransferase [ Enzymatic activity/volume] in Serum or PlasmaOrdered By: Trey Brown on 04-06-2023 AST [Catalytic activity/Vol] 24 U/L 13-39 [facility] Bilirubin.total [Mass/volume ] in Serum or PlasmaOrdered By: Trey Brown on 04-06-2023 Bilirubin [Mass/Vol] 0.4 mg/dL 0.3-1.0 [facility] Calcium [Mass/volume] in Ser um or PlasmaOrdered By: Trey Brown on 04-06-2023 Calcium [Mass/Vol] 9.7 mg/dL 8.6-10.3 [facility] Carbon dioxide, total [Moles /volume] in Serum or PlasmaOrdered By: Trey Brown on 04-06-2023 CO2 [Moles/Vol] 28.4 mmol/L 21.0-31.0 [facility] Chloride [Moles/volume] in S samson or PlasmaOrdered By: Trey Brown on 04-06-2023 Chloride [Moles/Vol] 108 mmol/L 98-107 [facility] Cholesterol [Mass/volume] in Serum or PlasmaOrdered By: Trey Brown on 04-06-2023 Cholesterol [Mass/Vol] 211 mg/dL 140-200 [facility] Comment on above: Chol less than 200 m g/dl low riskChol 201-239 mg/dl borderline riskChol 240 mg/dl and greater high risk Cholesterol in LDL Calc [Mas s/Vol]Ordered By: Trey Brown on 04-06-2023 Cholesterol in LDL [Mass/Vol] 84 mg/dL 0-100 [facility] Comment on above: LDL ATP III CLASSIFI CATIONLDL less than 100 mg/dL OptimalLDL 100-129 mg/dL Near or above optimalLDL 130-159 mg/dL Borderline highLDL 160-189 mg/dL HighLDL greater than 189 mg/dL Very high Cholesterol in VLDL Calc [Ma ss/Vol]Ordered By: Trey Brown on 04-06-2023 Cholesterol in VLDL [Mass/Vol] 54 mg/dL [facility] Creatinine [Mass/volume] in Serum or PlasmaOrdered By: Trey Brown on 04-06-2023 Creatinine [Mass/Vol] 0.63 mg/dL 0.60-1.20 [facility] Globulin Calc (S) [Mass/Vol] Ordered By: Trey Brown on 04-06-2023 Globulin (S) [Mass/Vol] 2.7 g/dL [facility] Glucose [Mass/volume] in Ser um or PlasmaOrdered By: Trey Brown on 04-06-2023 Glucose [Mass/Vol] 99 mg/dL 70-100 [facility] Comment on above: ADA recommended refe rence rangeRandom Glucose Reference Range is dependent on time and content of last meal. Glucose of more than 200 mg/dL in a nonstressed, ambulatory subject supports the diagnosis of Diabetes Mellitus. No Panel InformationOrdered By: Trey Brown on 04-06-2023 Estimated GFR (CKD-EPI) > 60.0 mL/Min [facility] Creatinine Clearance (Chem N/A [facility] Potassium [Moles/volume] in Serum or PlasmaOrdered By: Trey Brown on 04-06-2023 Potassium [Moles/Vol] 4.6 mmol/L 3.5-5.1 [facility] Protein [Mass/volume] in Ser um or PlasmaOrdered By: Trey Brown on 04-06-2023 Protein [Mass/Vol] 7.2 g/dL 6.4-8.9 [facility] Serum or plasma albumin/glob ulin mass ratioOrdered By: Trey Brown on 04-06-2023 Albumin/Globulin [Mass ratio] 1.7 {ratio} [facility] Serum or plasma anion gap de terminationOrdered By: Trey Brown on 04-06-2023 Anion gap [Moles/Vol] 10.2 mmol/L 6.0-15.0 [facility] Serum or plasma high density lipoprotein (HDL) cholesterol measurementOrdered By: Trey Brown on 04-06-2023 Cholesterol in HDL [Mass/Vol] 73 mg/dL 23-92 [facility] Comment on above: HDL CHOL ATP-III CLA SSIFICATION Cardiovascular RiskHDL > or equal to 60 mg/dL LOWHDL < 40 mg/dL HIGH Serum or plasma total choles terol/high density lipoprotein (HDL) cholesterol mass ratOrdered By: Trey Brown on 04-06-2023 Cholesterol.total/Susan sterol in HDL [Mass ratio] 2.9 {ratio} <5.0 [facility] Sodium [Moles/volume] in Ser um or PlasmaOrdered By: Trey Brown on 04-06-2023 Sodium [Moles/Vol] 142 mmol/L 136-145 [facility] Thyrotropin [Units/volume] i n Serum or PlasmaOrdered By: Dick Hall on 04-06-2023 TSH Qn 1.35 m[IU]/L 0.45-5.33 [facility] Triglyceride [Mass/volume] i n Serum or PlasmaOrdered By: Trey Brown on 04-06-2023 Triglyceride [Mass/Vol] 270 mg/dL 0-149 [facility] Comment on above: TRIG ATP III CLASSIF ICATIONTRIG less than 150 mg/dL NormalTRIG 150-199 mg/dL Borderline highTRIG 200-500 mg/dL High TRIG greater than 500 mg/dL Very highStandard traceable to the Center for Disease Conrtrol and Prevention (CDC) test method. Urea nitrogen [Mass/volume] in Serum or PlasmaOrdered By: Trey Brown on 04-06-2023 Urea nitrogen [Mass/Vol] 10 mg/dL 7-25 [facility] Vitamin B12 ser/plasOrdered By: Dick Hall on 04-06-2023 Cobalamin (Vitamin B12) [Mass/Vol] 384 pg/mL 180-914 [facility] BASIC METABOLIC PANELon 01-07 Anion gap [Moles/Vol] 14 mmol/L Normal 10 - 20 [facility] Comment on above: Performed By: #### B MP #### [address] [id number] Calcium [Mass/Vol] 9.7 mg/dL Normal 8.6 - 10.3 [facility] Comment on above: Performed By: #### B MP #### [address] [id number] Chloride [Moles/Vol] 104 mmol/L Normal 98 - 107 [facility] Comment on above: Performed By: #### B MP #### [address] [id number] Creatinine [Mass/Vol] 0.56 mg/dL Normal 0.50 - 1.05 [facility] Comment on above: Performed By: #### B MP #### [address] [id number] eGFR FEMALE >90 Normal >90 [facility] Comment on above: Result Comment: CALC ULATIONS OF ESTIMATED GFR ARE PERFORMED USING THE 2020 CKD-EPI STUDY REFIT EQUATION WITHOUT THE RACE VARIABLE FOR THE IDMS-TRACEABLE CREATININE METHODS. https://jasn.asnjournals.org/content/early//ASN.2020 561002 Performed By: #### B MP #### [address] [id number] Glucose [Mass/Vol] 73 mg/dL Low 74 - 99 [facility] Comment on above: Performed By: #### B MP #### [address] [id number] HCO3 (Bld) [Moles/Vol] 26 mmol/L Normal 21 - 32 [facility] Comment on above: Performed By: #### B MP #### [address] [id number] Potassium [Moles/Vol] 3.6 mmol/L Normal 3.5 - 5.3 [facility] Comment on above: Performed By: #### B MP #### [address] [id number] Sodium [Moles/Vol] 140 mmol/L Normal 136 - 145 [facility] Comment on above: Performed By: #### B MP #### [address] [id number] Urea nitrogen [Mass/Vol] 9 mg/dL Normal 6 - 23 [facility] Comment on above: Performed By: #### B MP #### [address] [id number] CBCon 01-20-2023 Erythrocyte distribution width (RBC) [Ratio] 13.7 % Normal 11.5 - 14.5 [facility] Comment on above: Performed By: #### C BC #### [address] [id number] Hematocrit (Bld) [Volume fraction] 38.5 % Normal 36.0 - 46.0 [facility] Comment on above: Performed By: #### C BC #### [address] [id number] Hemoglobin (Bld) [Mass/Vol] 13.0 g/dL Normal 12.0 - 16.0 [facility] Comment on above: Performed By: #### C BC #### [address] [id number] MCHC (RBC) [Mass/Vol] 33.8 g/dL Normal 32.0 - 36.0 [facility] Comment on above: Performed By: #### C BC #### [address] [id number] MCV (RBC) [Entitic vol] 85 fL Normal 80 - 100 U [facility] Comment on above: Performed By: #### C BC #### [address] [id number] Platelets (Bld) [#/Vol] 232 10*3/uL Normal 150 - 450 [facility] Comment on above: Performed By: #### C BC #### [address] [id number] RBC 4.51 x10E12/L Normal 4.00 - 5.20 [facility] Comment on above: Performed By: #### C BC #### [address] [id number] WBC (Bld) [#/Vol] 6.2 10*3/uL Normal 4.4 - 11.3 [facility] Comment on above: Performed By: #### C BC #### [address] [id number] COAGULATION SCREENon 023 aPTT Coag (Bld) [Time] 30 s Normal 27 - 38 [facility] Comment on above: Result Comment: Note new reference range as of 10/26/2022 at 10:00am. Performed By: #### C OAGS #### [address] [id number] PT Coag (PPP) [Time] 10.8 s Normal 9.8 - 12.8 [facility] Comment on above: Result Comment: Note new reference range as of 10/26/2022 at 10:00am. Performed By: #### C OAGS #### [address] [id number] PT, INR 1.0 Normal 0.9 - 1.1 [facility] Comment on above: Performed By: #### C OAGS #### [address] [id number] Electrocardiogram 12 Leadon 01-20-2023 Electrocardiogram 12 Lead Ventricular Rate 66 Atrial Rate 66 P-R Interval 150 QRS Duration 84 Q-T Interval 432 QTC Calculation(Bazett) 452 P [place] 58 R [place] 72 T [place] 38 QRS Count 11 Q Onset 218 P Onset 143 P Offset 200 T Offset 434 QTC Fredericia 446 Diagnosis Class Borderline Abnormal Diagnosis Normal sinus rhythm with sinus arrhythmia Normal ECG No previous ECGs available Confirmed by Luis Fernando Medina ([id number]) on 01/22/2023 10:08:12 AM Normal [facility] Laboratory - Chemistry and C hemistry - challengeon 01-20-2023 Anion gap [Moles/Vol] 14 mmol/L 10 - 20 [facility] y 250 DO Work Phone: Calcium [Mass/Vol] 9.7 mg/dL 8.6 - 10.3 [facility] 250 DO Work Phone: Chloride [Moles/Vol] 104 mmol/L 98 - 107 [facility] Evangelist jean 250 DO Work Phone: [phone] CO2 [Moles/Vol] 26 mmol/L 21 - 32 [facility] Evangelist jean 250 DO Work Phone: Creatinine [Mass/Vol] 0.56 mg/dL See Below [facility] Evangelist jean 250 DO Work Phone: Comment on above: Reference Range: 0.5 0 - 1.05 Glucose [Mass/Vol] 73 mg/dL below low threshold 74 - 99 [facility] Evangelist jean 250 DO Work Phone: Potassium [Moles/Vol] 3.6 mmol/L 3.5 - 5.3 [facility] Evangelist jean 250 DO Work Phone: Sodium [Moles/Vol] 140 mmol/L 136 - 145 [facility] Evangelist jean 250 DO Work Phone: Urea nitrogen [Mass/Vol] 9 mg/dL 6 - 23 [facility] Evangelist jean 250 DO Work Phone: Laboratory - Coagulationon 0 01-20-2023 aPTT Coag (PPP) [Time] 30 s 27 - 38 [facility] Evangelist jean 250 DO Work Phone: Comment on above: Note new reference r ricardo as of 10/26/2022 at 10:00am. INR Coag (PPP) [Relative time] 1.0 {INR} 0.9 - 1.1 [facility] Evangelist jean 250 DO Work Phone: PT Coag (PPP) [Time] 10.8 s 9.8 - 12.8 [facility] Evangelist jean 250 DO Work Phone: Comment on above: Note new reference r ricardo as of 10/26/2022 at 10:00am. Laboratory - Hematology and Cell countson 01-20-2023 Erythrocyte distribution width (RBC) [Ratio] 13.7 % See Below [facility] Evangelist jean 250 DO Work Phone: Comment on above: Reference Range: 11. 5 - 14.5 Hematocrit (Bld) [Volume fraction] 38.5 % See Below [facility] Evangelist jean 250 DO Work Phone: Comment on above: Reference Range: 36. 0 - 46.0 Hemoglobin (Bld) [Mass/Vol] 13.0 g/dL See Below [facility] Evangelist jean 250 DO Work Phone: Comment on above: Reference Range: 12. 0 - 16.0 MCHC (RBC) [Mass/Vol] 33.8 g/dL See Below [facility] Evangelist jean 250 DO Work Phone: Comment on above: Reference Range: 32. 0 - 36.0 MCV (RBC) [Entitic vol] 85 fL 80 - 100 M [facility] Evangelist jean 250 DO Work Phone: Platelets (Bld) [#/Vol] 232 10*3/uL 150 - 450 [facility] Evangelist jean 250 DO Work Phone: RBC (Bld) [#/Vol] 4.51 {x10E12/L} See Below [facility] Evangelist jean 250 DO Work Phone: Comment on above: Reference Range: 4.0 0 - 5.20 WBC (Bld) [#/Vol] 6.2 10*3/uL 4.4 - 11.3 [facility] Evangelist jean 250 DO Work Phone: No Panel Informationon 01-20 >90 >90 [facility] Evangelist jean 250 DO Work Phone: Comment on above: CALCULATIONS OF KRUPA MATED GFR ARE PERFORMED USING THE 2020 CKD-EPI STUDY REFIT EQUATION WITHOUT THE RACE VARIABLE FOR THE IDMS-TRACEABLE CREATININE METHODS.https://jasn.asnjournals.org/content/early// ASN.4515387261 https://UHMUSEXPRDWE B01: 8080/musescripts/museweb .dll?RetrieveTestByDateT lion?QcqbwutXU=[email or web address]& Date=20-01-2023&Time=12% 3a21%3a15%3a00&TestType= ECG&Site=1&OutputType=PD F&Ext=PDF [facility] y 250 DO Work Phone: [phone] Normal sinus rhythm with sinus arrhythmia [facility] y 250 DO Work Phone: [phone] Borderline Abnormal [facility] y 250 DO Work Phone: [phone] 1 [facility] y 250 DO Work Phone: [phone] 1 [facility] y 250 DO Work Phone: [phone] 1 [facility] y 250 DO Work Phone: [phone] 1 [facility] 250 DO Work Phone: [phone] 1 [facility] 250 DO Work Phone: [phone] 1 [facility] 250 DO Work Phone: [phone] 1 [facility] 250 DO Work Phone: [phone] 1 [facility] 250 DO Work Phone: [phone] 1 [facility] 250 DO Work Phone: [phone] 1 [facility] 250 DO Work Phone: [phone] 1 [facility] 250 DO Work Phone: [phone] 1 [facility] 250 DO Work Phone: [phone] 1 [facility] 250 DO Work Phone: [phone] 1 [facility] y 250 DO Work Phone: Order Reconciliationon 01-20 Order Reconciliation Page 1 Discharge Reconciliation Document Reconciliation Type: Discharge requested on behalf of Hillary Simon (Advanced Practice Nurse) done by Hillary Simon (LABELING STRATEGIST-PHLEBOTOMY SERVICES TECHNICIAN) Discharge - Reconciliation: 20-Jan-2023 16:24 by: Hillary Simon (LABELING STRATEGIST-PHLEBOTOMY SERVICES TECHNICIAN) Home Medications EnteredHOME MEDICATIONS AT DISCHARGE DateReconciliation Comment/ Additional Information Creon 36,000 units oral delayed release capsule 1 cap(s) orally 3 times a day 20-Jan-2023 12:36 Creon 36,000 units oral delayed release capsule 1 cap(s) orally 3 times a day 20-Jan-2023 12:36 Creon 36,000 units oral delayed release capsule is continued as Creon 36,000 units oral delayed release capsule magnesium oxide 400 mg oral tablet orally 2 times a day 20-Jan-2023 12:36 magnesium oxide 400 mg oral tablet orally 2 times a day 20-Jan-2023 12:36 magnesium oxide 400 mg oral tablet is continued as magnesium oxide 400 mg oral tablet traZODone 100 mg oral tablet 1 tab(s) orally once a day (at bedtime) 23-Dec-2020 10:05 traZODone 100 mg oral tablet 1 tab(s) orally once a day (at bedtime) 23-Dec-2020 10:05 traZODone 100 mg oral tablet is continued as traZODone 100 mg oral tablet valACYclovir 500 mg oral tablet 1 tab(s) orally once a day 23-Dec-2020 10:06 valACYclovir 500 mg oral tablet 1 tab(s) orally once a day 23-Dec-2020 10:06 valACYclovir 500 mg oral tablet is continued as valACYclovir 500 mg oral tablet Vitamin C orally once a day 20-Jan-2023 12:38 Vitamin C orally once a day 20-Jan-2023 12:38 Vitamin C is continued as Vitamin C Vitamin D2 orally once a day 20-Jan-2023 12:37 Vitamin D2 orally once a day 20-Jan-2023 12:37 Vitamin D2 is continued as Vitamin D2 Zinc 140 mg (as elemental zinc 50 mg) oral tablet 1 tab(s) orally once a day 20-Jan-2023 12:37 Zinc 140 mg (as elemental zinc 50 mg) oral tablet 1 tab(s) orally once a day 20-Jan-2023 12:37 Zinc 140 mg (as elemental zinc 50 mg) oral tablet is continued as Zinc 140 mg (as elemental zinc 50 mg) oral tablet Current OrdersDateHOME MEDICATIONS AT DISCHARGE DateReconciliation Comment/ Additional Information Acetaminophen Tablet (TYLENOL)DOSE = 650 mg Oral Every 4 Hours, PRN Pain - Mild (1-3) 20-Jan-2023 16:23 Acetaminophen is not required Ondansetron Injectable (ZOFRAN)DOSE = 4 mg IntraVenous Push Every 8 Hours, PRN Nausea & Vomiting 20-Jan-2023 16:23 Ondansetron Injectable is not required Sodium Chloride 0.9% Infusion IV Bag Volume = 1,000 mL Run at: 10 mL/hr IntraVenous 19-Jan-2023 09:10 Sodium Chloride 0.9% Infusion is not required All Active Home Medications at time of Discharge Reconciliation: 20-Jan-2023 16:24 Creon 36,000 units oral delayed release capsule 1 cap(s) orally 3 times a day magnesium oxide 400 mg oral tablet orally 2 times a day traZODone 100 mg oral tablet 1 tab(s) orally once a day (at bedtime) valACYclovir 500 mg oral tablet 1 tab(s) orally once a day Vitamin C orally once a day Vitamin D2 orally once a day Zinc 140 mg (as elemental zinc 50 mg) oral tablet 1 tab(s) orally once a day Normal [facility] Patient Profile - Preop v3on 01-20-2023 Patient Profile - Preop v3 Patient Profile - Preop: Initial Info: Patient DemographicsName: HNAK LIU Date: 1970 Address: [address] [place] [address] [place], [address] Primary Phone [phone] How to be AddressedWendy Spoken Language PreferredEnglish Stated Reason for Admissionloop out Primary Contact Name and NumberDale [phone] Medications Brought to Hospitalno General Health: Weight in kg80.9 kilogram(s) Weight in dih689.3 pound(s) Weight Methodactual (measured) Scale Typestanding Height in feet5 feet Height in inches1.97 inch(es) Height in cm157.4 centimeter(s) Height Methodstated BMI (kg/m2)32.654 square meter Patient or Family Member Reaction to Anesthesiano previous reaction Blood Avoidance/Restrictionsno ne Previous Transfusion Reactionnot applicable Health Mgmt: Symptoms/Conditions Managed at Homerespiratory; gastrointestinal; cancer; cardiovascular Cancer Management Strategiesroutine screening; medication therapy Cancer Symptoms/Conditions Commentstomach cancer Cardiovascular Symptoms/Conditionsdysrh ythmia Cardiovascular Management Strategiesroutine screening; medication therapy Gastrointestinal Symptoms/Conditionsreflu x/heartburn Gastrointestinal Management Strategiesmedication therapy; diet modification Gastrointestinal Symptoms/Conditions Commenttumors in stomach and duoduim. Respiratory Symptoms/Conditionssleep disordered breathing Respiratory Management StrategiesCPAP Barriers to Managing Healthnone Relationship/Environ: Lives Withspouse Living Arrangementshouse Resource/Environmental Concernsnone Anticipated [place] [facility] Anticipated at Transitionnone Tobacco Use: Tobacco Useno Pre-op Checklist: Arrival [id number] Arrival Time12:00 Procedure Typeloop removal NPOyes Last Food [id number] 20:30 Last Clear Fluid [id number] 07:00 ID Band On Patientpatient ID (name), allergy, falls risk Consent Signedpending H&P Completepending Anesthesia Assessment Completedpending EKG Performedyes Chest X-Ray Performednot ordered Additional Information: Information Review: Allergies, Home Meds and Significant Events have been Reviewed and Verified with Patient/Familyyes Allergy, Intolerance, Adverse Event: Allergies: adenosine: Drug, Other, Active contrast (specific type unknown): Contrast, Unknown, Active Nubain: Drug, Unknown, Active iodine: Drug, Unknown, Active Electronic Signatures: Rae Almaguer (STAFF N) (Signed 20-Jan-2023 12:24) Authored: Initial Info, General Health, Health Mgmt, Relationship/Environ, Tobacco Use, Pre-op Checklist, Additional Information Last Updated: 20-Jan-2023 12:24 by Rae Almaguer (STAFF N) Normal [facility] Radiologyon 01-20-2023 XR Chest 2 Views Normal [facility] y 250 DO Work Phone: SURGICAL PATHOLOGYon 023 Case Report Surgical Pathology Report Case: [id number] Authorizing Provider: Naty Booker Jr., Collected: 12/29/2022 09:50 AM Ordering Location: Procedures Received: 12/29/2022 10:20 AM Pathologist: Cory Carrion MD, PhD Specimens: A) - ANTRUM (STOMACH) BIOPSY, gastritis B) - COLON BIOPSY, r/o microscopic colitis [facility] FINAL DIAGNOSIS A. Antrum, biopsy: -Minimal chronic inactive gastritis and reactive change in antral mucosa. -Oxyntic mucosa with mild PPI effect. -Negative for intestinal metaplasia or dysplasia. -No H. pylori on routine stain. B. Random colon, biopsy: -Colonic mucosa with no diagnostic abnormality. -No evidence of lymphocytic or collagenous colitis. [facility] Gross Description A. ANTRUM (STOMACH) BIOPSY Received in formalin are two pieces of manning, soft tissue aggregating to 0.5 x 0.4 x 0.2 cm. Totally submitted in one cassette. B. COLON BIOPSY Received in formalin is one piece of manning, soft tissue measuring 0.3 x 0.2 x 0.1 cm. Totally submitted in one cassette. [facility] December 29, 2022 3:57 PM Gross examination performed at [facility], [address] [place] [address] Performing Lab Diagnostic interpretation performed at [facility], [address] [place] [address]# [id number] Roofing Technician: Ivan Jefferson M.D. [facility] ANES POSTPROC EVALon 023 ANES POSTPROC EVAL HNO ID: [id number] Author: Naty Hess MD Service: Anesthesiology Author Type: Anesthesiologist Type: Anesthesia Postprocedure Evaluation Filed: 12/29/2022 11:49 AM Note Text: POST ANESTHESIA EVALUATION NOTE : 1970 Procedure Summary Date: 12/29/22 Room / Location: Procedures Anesthesia Start: 0947 Anesthesia Stop: 1019 Procedures: EGD DIAGNOSTIC COLONOSCOPY DIAGNOSTIC Diagnosis: Generalized abdominal pain Gastroesophageal reflux disease, unspecified whether esophagitis present History of benign carcinoid neoplasm of gastrointestinal tract Family history of colon cancer Change in bowel habits (Upper abdominal pain) (Diarrhea) Scheduled Providers: Naty Booker Jr., DO; Naty Hess MD; Mónica Almanzar APRN.MANAGER CARDIOVASCULAR; Jemma Barclay RN Responsible Provider: Naty Hess MD Anesthesia Type: MAC ASA Status: 2 Anesthesia Type: MAC Last Vitals Vitals Value Taken Time BP 137/73 12/29/22 1050 Temp 36.2 ?C (97.2 ?F) 12/29/22 1015 Pulse 71 12/29/22 1054 Resp 8 12/29/22 1054 SpO2 100 % 12/29/22 1054 Vitals shown include unvalidated device data. Post Anesthesia Patient Status Patient Evaluation: bedside. Anticipated Disposition: phase 2 then home. Neurological Status: aware and responsive. Pulmonary Status: breathing comfortably on room air Airway Control: returned to baseline unsupported. Cardiovascular Status: stable. Pain Management: clinically adequate Postoperative Hydration: acceptable. Intraoperative Events: no significant anesthesia events Post Operative Nausea/Vomiting Status: no significant post operative nausea or vomiting Recommendation: continue current plan of care. Anesthesia Observations No Documentation SIGNATURE: Naty Hess MD PATIENT NAME: Hank Liu DATE: December 29, 2022 TIME: 11:48 AM CSN: [id number] [facility] ANES PRE-OPon 12-29-2022 ANES PRE-OP HNO ID: [id number] Author: Naty Hess MD Service: Anesthesiology Author Type: Anesthesiologist Type: Anesthesia Preprocedure Evaluation Filed: 12/29/2022 9:32 AM Note Text: ANESTHESIOLOGY DAY OF SURGERY NOTE : 1970 Procedure Information Date/Time: 12/29/22 1015 Scheduled providers: Naty Booker Jr., DO; Naty Hess MD; Mónica Almanzar APRN.MANAGER CARDIOVASCULAR; Jemma Barclay RN Procedures: EGD DIAGNOSTIC COLONOSCOPY DIAGNOSTIC Location: Procedures Estimated body mass index is 34.29 kg/m? as calculated from the following: Height as of 09/13/22: 154.9 cm (5' 0.98 ). Weight as of 09/13/22: 82.3 kg (181 lb 6.4 oz). Most recent hematocrit and potassium results: Hematocrit 38.4 09/13/2022 Potassium 5.0 09/13/2022 Relevant Problems ANESTHESIA (+) DARNELL (obstructive sleep apnea) (+) PONV (postoperative nausea and vomiting) GI (+) Peptic ulcer disease NEURO-PSYCH (+) History of benign carcinoid tumor of gastrointestinal tract PULMONARY (+) DARNELL (obstructive sleep apnea) I - PHYSICAL EVALUATION AIRWAY Patient intubated: No. Tracheostomy tube not present Mallampati: II. TM distance: >3 FB. Neck ROM: full ROM without neurological symptoms. Mouth opening: adequate. Short neck: no. Thick neck: no DENTAL Dental findings: teeth intact. Additional exam findings: no II - ANESTHESIA PLAN ASA Score: 2 Anesthetic Plan: MAC The patient is not a current smoker. NPO Status: adequate Beta Tristan Monitoring Plan Monitoring plan: standard ASA. Post Procedure Analgesic Plan Postoperative analgesic plan: multimodal analgesia. Informed Consent Anesthetic risks, benefits, alternatives, personnel and consent discussed: yes. Patient / Responsible Green Party agrees to proceed: yes Patient / Surrogate agrees to blood products: blood products not planned Significant changes in the patient condition since the History and Physical, not otherwise documented in primary service progress note: no. Potential Anesthesia issues that may suggest increased risk of complications or contraindication to planned procedure: none. Vitals Value Taken Time BP 138/81 12/29/22 0911 Pulse 85 12/29/22 0911 Resp 14 12/29/2211 Temp 36.7 ?C (98 ?F) 12/29/22 09 SpO2 97 % 12/29/22 09 Outpatient Medications as of 12/29/2022 Medication Sig - qwvexm-stwalmds-quubcbx (CREON) 36,000-114,000- 180,000 unit delayed release capsule Take 1 capsule by mouth four times daily. - Phentermine HCl 37.5 mg tablet Take 37.5 mg by mouth once daily. - kawjxm-nltdehvo-sgddlyk (CREON 12) 12,000-38,000 -60,000 unit delayed release capsule Take As Directed by Physician. - rOPINIRole (REQUIP) 0.25 mg tablet Take 0.5 mg by mouth once daily as needed. - esomeprazole (NEXIUM) 40 mg capsule Take 1 capsule by mouth twice daily. - magnesium oxide (MAG-OX) 400 mg (241.3 mg magnesium) tablet Take 1 tablet by mouth twice daily. - rosuvastatin (CRESTOR) 10 mg tablet Take 10 mg by mouth daily at bedtime. - L.acid/B.bifidum/B.anima l/FOS (PROBIOTIC COMPLEX ORAL) Take by mouth. - valACYclovir (VALTREX) 500 mg tablet 500 mg. - traZODone (DESYREL) 50 mg tablet Take 100 mg by mouth daily at bedtime. Facility-Administered Medications as of 12/29/2022 Medication Dose Route Frequency - NaCl 0.9% iv infusion 50 mL/hr INTRAVENOUS CONTINUOUS I have interviewed and examined the patient. I have reviewed the medical record and/or the pre-anesthesia evaluation, pertinent labs, and test results. This contains updated information obtained within 48 hours of Surgery/Procedure. SIGNATURE: Naty Hess MD PATIENT NAME: Hank Liu DATE: December 29, 2022 TIME: 9:31 AM CSN: [id number] Normal [facility] COLONOSCOPY DIAGNOSTICon [facility] Colonoscopyon 12-29-2022 Colonoscopy [facility] Gastrointestinal Endoscopy Patient Name: Hank Liu Procedure Date: 12/29/2022 9:25 AM Date of : 1970 Admit Type: Outpatient Age: 52 Room: [place] [id number] Gender: Female Note Status: Finalized Attending MD: Naty Booker Jr, DO Procedure: Colonoscopy Indications: Diarrhea, Rectal bleeding Providers: Naty Booker Jr, DO Patient Profile: This is a 52 year old female. Refer to note in patient chart for documentation of history and physical. Last Colonoscopy: 3 years ago. Occasional loose stools and episode a blood in stool four months ago. Referring Physician: Naty Booker Jr, DO (Referring MD) Medicines: Propofol per Anesthesia, Monitored Anesthesia Care Complications: No immediate complications. Requesting Provider: Procedure: Pre-Anesthesia Assessment: - Prior to the procedure, a History and Physical was performed, and patient medications and allergies were reviewed. The patient's tolerance of previous anesthesia was also reviewed. The risks and benefits of the procedure and the sedation options and risks were discussed with the patient. All questions were answered, and informed consent was obtained. Prior Anticoagulants: The patient has taken no anticoagulant or antiplatelet agents. ASA Grade Assessment: III - A patient with severe systemic disease. After reviewing the risks and benefits, the patient was deemed in satisfactory condition to undergo the procedure. After I obtained informed consent, the scope was passed under direct vision. Throughout the procedure, the patient's blood pressure, pulse, and oxygen saturations were monitored continuously. The 9219 Adult scope was introduced through the anus and advanced to the terminal ileum, with identification of the appendiceal orifice and IC valve. The colonoscopy was performed without difficulty. The patient tolerated the procedure well. The quality of the bowel preparation was excellent. The entire colon was well visualized. The terminal ileum, ileocecal valve, appendiceal orifice, and rectum were photographed. Scope Withdrawal Time: 0 hours 8 minutes 23 seconds Moderate Sedation: MAC anesthesia was administered by the anesthesia team. Total Procedure Duration: 0 hours 12 minutes 30 seconds Findings: The digital rectal exam was normal. The terminal ileum appeared normal. A few small-mouthed diverticula were found in the sigmoid colon. Normal mucosa was found in the entire colon. Biopsies for histology were taken with a cold forceps from the sigmoid colon for evaluation of microscopic colitis. Internal hemorrhoids were found during retroflexion. The hemorrhoids were Grade II (internal hemorrhoids that prolapse but reduce spontaneously). Impression: - The examined portion of the ileum was normal. - Diverticulosis in the sigmoid colon. - Normal mucosa in the entire examined colon. Biopsied. - Internal hemorrhoids. Recommendation: - Discharge patient to home. - Resume regular diet. - Continue present medications. - Await pathology results. - Repeat colonoscopy in 5 years for screening purposes. - Patient has a contact number available for emergencies. The signs and symptoms of potential delayed complications were discussed with the patient. Return to normal activities tomorrow. Written discharge instructions were provided to the patient. Procedure Code(s): --- Professional --- 10201, Colonoscopy, flexible; with biopsy, single or multiple Diagnosis Code(s): --- Professional --- K64.1, Second degree hemorrhoids R19.7, Diarrhea, unspecified K62.5, Hemorrhage of anus and rectum K57.30, Diverticulosis of large intestine without perforation or abscess without bleeding CPT copyright 2020 [employer]. All rights reserved. The codes documented in this report are preliminary and upon clearance cutter review may be revised to meet current compliance requirements. Attending Participation: I personally performed the entire procedure. Scope In: 9:57:47 AM Scope Out: 10:10:17 AM MD Naty Joaquin Jr, DO 12/29/2022 10:17:43 AM This report has been signed electronically by Naty Booker Jr, DO Number of Addenda: 0 Note Initiated On: 12/29/2022 9:25 AM Estimated Blood Loss: Estimated blood loss: none. Normal [facility] EGD DIAGNOSTICon 12-29-2022 [facility] HISTORY PHYSICALon 3 HISTORY PHYSICAL HNO ID: [id number] Author: Naty Booker Jr., DO Service: Gastroenterology Author Type: Physician Type: HANDP Filed: 12/29/2022 9:36 AM Note Text: HISTORY AND PHYSICAL EXAMINATION SERVICE DATE: 12/29/2022 SERVICE TIME: 9:34 AM Chief Complaint: abd pain, GERD, carcinoid, blood in stool HPI:This is a 52 year old female who presents with GERD, abd pain, history of carcinoid of the stomach, blood in stool, family history of colon cancer (mother). Last EGD was 6 months ago. Last colonoscopy was 3 yrs ago. PAST MEDICAL HISTORY Diagnosis Date Arthritis Carcinoid tumor of stomach Gall stones GERD (gastroesophageal reflux disease) Hemorrhoids Hyperlipidemia Stomach ulcer UTI (urinary tract infection) PAST SURGICAL HISTORY Procedure Laterality Date ANESTH, SECTION CHOLECYSTECTOMY COLONOSCOPY 03/22/2016 EGD HYSTERECTOMY HX LAP REMOVE/REV MESH BLADDER WALL PAST SURGICAL HISTORY OF 04/2019 breast reconstruction SLEEVE RESECTION STOMACH FAMILY HISTORY Problem Relation Age of Onset Diabetes Mother Colon Cancer Mother 55 detected on autopsy Aneurysm Mother 55 aortic Heart disease Father Hyperlipidemia Father Stroke Father Cancer Brother 48 kidney Cancer Brother spinal cord Social History Tobacco Use Smoking status: Former Types: Cigarettes Quit date: 05/2022 Years since quittin.6 Passive exposure: Current Smokeless tobacco: Never Vaping Use Vaping Use: Never used Substance Use Topics Alcohol use: Not Currently Drug use: No (Not in a hospital admission) ALLERGIES Allergen Reactions Iodinated Contrast * Hives Iodine Hives Nubain [Nalbuphine * Unknown COMPLETE REVIEW OF SYSTEMS: GENERAL: No weight loss, malaise or fevers RESPIRATORY: Negative for cough, hemoptysis, wheezing, COPD, dyspnea or shortness of breath CARDIOVASCULAR: Negative for chest pain, leg swelling, hypertension, CHF or palpitations GI: Positive for abdominal discomfort , heart burn , blood in stool BP 138/81 Pulse 85 Temp (Src) 98 (Temporal) Resp 14 SpO2 97% O2 Therapy: Room Air PHYSICAL EXAM: Physical Exam Performed: GENERAL: Alert, no distress, cooperative LUNGS: Lungs clear to auscultation, Good diaphragmatic excursion CARDIAC: Normal S1 and S2; no rubs, murmurs, or gallops ABDOMEN: Abdomen soft, non-tender, BS normal, No masses or organomegaly EXTREMITIES: Extremities normal, no deformities, edema, clubbing or skin discoloration. Good capillary refill., No ulcers (R10.84) Generalized abdominal pain Plan: EGD DIAGNOSTIC, EGD DIAGNOSTIC, COLONOSCOPY DIAGNOSTIC, COLONOSCOPY DIAGNOSTIC (K21.9) Gastroesophageal reflux disease, unspecified whether esophagitis present Plan: EGD DIAGNOSTIC, EGD DIAGNOSTIC (Z86.012) History of benign carcinoid neoplasm of gastrointestinal tract Plan: EGD DIAGNOSTIC, EGD DIAGNOSTIC (Z80.0) Family history of colon cancer Plan: COLONOSCOPY DIAGNOSTIC, COLONOSCOPY DIAGNOSTIC (R19.4) Change in bowel habits Plan: COLONOSCOPY DIAGNOSTIC, COLONOSCOPY DIAGNOSTIC (Z80.0) Family history of colon cancer in mother SIGNATURE: Naty Booker Jr., DO PATIENT NAME: Hank Liu DATE: December 29, 2022 TIME: 9:34 AM PAGER/CONTACT #: [facility] SURGICAL PATHOLOGYon 023 CASE REPORT [facility] Comment on above: Order Comment: Speci kelly Type: TISSUE SPECIMEN Ordering Facility: [facility] Address: [address] [place] [address] Result Comment: Surg ica Pathology Report Case: [id number] Authorizing Provider: Naty Booker Jr., DO Collected: 12/29/2022 09:50 AM Ordering Location: Procedures Received: 12/29/2022 10:20 AM Pathologist: Cory Carrion MD, PhD Specimens: A) - ANTRUM (STOMACH) BIOPSY, gastritis B) - COLON BIOPSY, r/o microscopic colitis Performed By: #### S #### [facility] CLIA [id number] [address] [place] [address] STATES OF [facility] FINAL DIAGNOSIS [facility] Comment on above: Order Comment: Speci kelly Type: TISSUE SPECIMEN Ordering Facility: [facility] Address: [address] [place] [address] Result Comment: Divine lees, biopsy: -Minimal chronic inactive gastritis and reactive change in antral mucosa. -Oxyntic mucosa with mild PPI effect. -Negative for intestinal metaplasia or dysplasia. -No H. pylori on routine stain. B. Random colon, biopsy: -Colonic mucosa with no diagnostic abnormality. -No evidence of lymphocytic or collagenous colitis. Performed By: #### S #### [facility] CLIA [id number] [address] [place] [address] [place] FINAL PERFORMING LAB Normal [facility] Comment on above: Order Comment: Speci men Type: TISSUE SPECIMEN Ordering Facility: [facility] Address: [address] [place] [address] Result Comment: Diag nostic interpretation performed at [facility], [address] [place] [address] CLIA# [id number] Roofing Technician: Ivan Jefferson M.D. Performed By: #### S #### [facility] CLIA [id number] [address] [place] [address] [place] GROSS DESCRIPTION Normal [facility] Comment on above: Order Comment: Speci men Type: TISSUE SPECIMEN Ordering Facility: [facility] Address: [address] [place] [address] Result Comment: A. A NTRUM (STOMACH) BIOPSY Received in formalin are two pieces of manning, soft tissue aggregating to 0.5 x 0.4 x 0.2 cm. Totally submitted in one cassette. B. COLON BIOPSY Received in formalin is one piece of manning, soft tissue measuring 0.3 x 0.2 x 0.1 cm. Totally submitted in one cassette. JTS December 29, 2022 3:57 PM Gross examination performed at [facility], [address] [place] [address] Performed By: #### S #### [facility] CLIA [id number] [address] [place] [address] [place] Upper GI endoscopyon 12-29-2 023 Upper GI endoscopy [facility] Gastrointestinal Endoscopy Patient Name: Hank Liu Procedure Date: 12/29/2022 9:28 AM Date of : 1970 Admit Type: Outpatient Age: 52 Room: [facility] Gender: Female Note Status: Finalized Attending MD: Naty Booker Jr, DO Procedure: Upper GI endoscopy Indications: Upper abdominal pain, Dyspepsia, Heartburn, Esophageal reflux, histor of gastric carcinoma Providers: Naty Booker Jr, DO Patient Profile: This is a 52 year old female. Refer to note in patient chart for documentation of history and physical. Patient has symptoms of acute epigastric abdominal pain and acute dyspepsia. Referring Physician: Naty Booker Jr, DO (Referring MD) Medicines: Propofol per Anesthesia, Monitored Anesthesia Care Complications: No immediate complications. Requesting Provider: Procedure: Pre-Anesthesia Assessment: - Prior to the procedure, a History and Physical was performed, and patient medications and allergies were reviewed. The patient's tolerance of previous anesthesia was also reviewed. The risks and benefits of the procedure and the sedation options and risks were discussed with the patient. All questions were answered, and informed consent was obtained. Prior Anticoagulants: The patient has taken no anticoagulant or antiplatelet agents. ASA Grade Assessment: III - A patient with severe systemic disease. After reviewing the risks and benefits, the patient was deemed in satisfactory condition to undergo the procedure. After obtaining informed consent, the endoscope was passed under direct vision. Throughout the procedure, the patient's blood pressure, pulse, and oxygen saturations were monitored continuously. The Endoscope was introduced through the mouth, and advanced to the second part of duodenum. The upper GI endoscopy was accomplished without difficulty. The patient tolerated the procedure well. Moderate Sedation: MAC anesthesia was administered by the anesthesia team. Total Procedure Duration: 0 hours 3 minutes 5 seconds Findings: The examined esophagus was normal. The Z-line was regular and was found 35 cm from the incisors. Localized minimal inflammation characterized by congestion (edema) was found in the gastric antrum. Biopsies were taken with a cold forceps for histology. The cardia and gastric fundus were normal on retroflexion. The examined duodenum was normal. Impression: - Normal esophagus. - Z-line regular, 35 cm from the incisors. - Gastritis. Biopsied. - Normal examined duodenum. Recommendation: - Await pathology results. - Discharge patient to home. - Resume regular diet. - Continue present medications. 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 All rights reserved. The codes documented in this report are preliminary and upon clearance cutter review may be revised to meet current compliance requirements. Attending Participation: I personally performed the entire procedure. Scope In: 9:49:00 AM Scope Out: 9:52:05 AM MD Naty Joaquin Jr, DO 12/29/2022 9:56:25 AM This report has been signed electronically by Naty Booker Jr, DO Number of Addenda: 0 Note Initiated On: 12/29/2022 9:28 AM Estimated Blood Loss: Estimated blood loss: none. Normal [facility] Office Visit (Cardiology)on 12-09-2022 Follow-up visit Diagnoses/Problems Assessed Syncope (780.2) (R55) Status post placement of implantable loop recorder (V45.09) (Z95.818) Sleep apnea (780.57) (G47.30) Dyspnea (786.09) (R06.00) Chest discomfort (786.59) (R07.89) Hyperlipidemia (272.4) (E78.5) Former smoker (V15.82) (Z87.891) Encounter for loop recorder at end of battery life (V53.39) (Z45.09) Orders Encounter for loop recorder at end of battery life Basic Metabolic Panel; Status:Active; Requested for:09Dec2022; Complete Blood Count; Status:Active; Requested for:09Dec2022; Loop Recorder Removal; Status:Active; Requested for:09Dec2022; PT/INR; Status:Active; Requested for:09Dec2022; Hyperlipidemia Lipid Panel; Status:Active; Requested for:09Dec2022; SocHx: Former smoker Tobacco Use Screening; Status:Complete; Done: 09Dec2022 Syncope IO EKG Electrocardiogram- 12 Lead; Status:Active - Perform Order; Requested for:[id number]; Chief Complaint Patient is here today for a scheduled follow up Chief complaint: I am doing fine. 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 She underwent implantation of a loop recorder on December 24, 2020 and presents to the office today as the device has reached elective replacement indicator. She states she underwent a sleep study on December 14, 2021 and was prescribed CPAP. She states she has not worn the CPAP for a couple of months because she lost weight and she is no longer experiencing sleep apnea. She states that she has noted an improvement in her energy level and denies dizziness, lightheadedness, near or yossi syncope, chest pain, palpitations, or shortness of breath. She is accompanied by her for today's office visit. Physical exam: Neurological: Alert and oriented X3. Cooperative and a pleasant demeanor. Normal power x4 extremities. HEENT: Carotid upstrokes are 2+/4 bilaterally. No carotid bruits noted. No jugular vein distention noted at 90 degrees. Cardiac: Regular S1 and S2. No S3, or S4. No murmurs or rubs noted. Lungs: Clear to auscultation posterior laterally. Respirations are regular and non-labored. Abdomen: Soft with active bowel sounds X4 quads. No hepatosplenomegaly noted. No palpable masses noted. Extremities: Lower extremities are warm, dry, and intact. No lower extremity edema noted. DPs are 2+ bilaterally. Left parasternal loop recorder pocket is well-healed without redness swelling or drainage. Labs and testing: Twelve-lead EKG reveals sinus rhythm without ectopics no acute ischemic changes. QRS durations 88 ms, QT 404 ms, QTc 442 ms. Loop recorder interrogation reveals the device reached elective replacement indicator on November 23, 2022. Myoview stress test dated May 13, 2020 revealed an ejection fraction of 73% with no acute ischemic changes or infarct patterns noted. 2D echocardiogram dated February 19, 2020 revealed an ejection fraction of 65% with trace MR and TR. MRI of the brain dated December 01, 2018 revealed no active disease. Clinical impressions: 1. Syncope and near syncope with no significant arrhythmic events, bradycardia, tachycardia, sinus pauses or heart block status post loop recorder implant on December 24, 2020 presently at elective replacement indicator as of November 23, 2022. 2. Mild obstructive sleep apnea with mild hypoxia per sleep study dated December 14, 2022 with recommendation for auto titration CPAP. Patient reports a weight loss of 25 to 30 pounds and states she is no longer experiencing sleep apnea. 3. Normal left ventricular function per 2D echocardiogram dated February 19, 2020 with an ejection fraction of 65%. 4. Negative Myoview stress test dated 2020 for ischemia or infarct patterns. 5. MRI of the brain dated December 01, 2018 revealing no abnormalities. 6. Remote tobacco use. 7. Dyslipidemia. 8. 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 9. Class I obesity with a BMI 32.01. Recommendations: 1. The patient will be scheduled for removal of the loop recorder. She will take all current medications as prescribed the day of the procedure with a small sip of water. No food to eat or drink after midnight the day of the procedure. 2. Follow-up will be pending the clinical course. 3. Continue lifestyle modifications as discussed. 4. Patient will obtain a lipid panel for evaluation with further recommendations pending the results. The patient reports a history of statin intolerance. Evaluation and note by Rachel Avalos CNP Please excuse any errors in grammar or translation related to this dictation. Voice recognition software was utilized to prepare this document. Surgical History Problems History of Bladder surgery History of Breast reduction History of section History of Cholecystectomy History of Colon surgery History of (more content not included)... Normal [facility] Tobacco Screening.on 023 Fall risk assessment a) No falls within the last year -[facility] [place] DO Work Phone: Tobacco use status CPHS a) Yes M -[facility] [address] DO Work Phone: Tobacco Screening. Yes [facility] [address] DO Work Phone: Activated partial thrombopla stin time (aPTT) in platelet poor plasma by coagulation aOrdered By: David Mei on 11-25-2022 aPTT Coag (PPP) [Time] 31.8 s 25.1-36.5 [facility] Alanine aminotransferase [En zymatic activity/volume] in Serum or PlasmaOrdered By: David Mei on 11-25-2022 ALT [Catalytic activity/Vol] 11 U/L 7-52 [facility] Albumin [Mass/volume] in Ser um or Plasma by Bromocresol green (BCG) dye binding methoOrdered By: David Mei on 11-25-2022 Albumin BCG dye [Mass/Vol] 4.1 g/dL 3.5-5.7 [facility] Alkaline phosphatase [Enzyma tic activity/volume] in Serum or PlasmaOrdered By: David Mei on 11-25-2022 ALP [Catalytic activity/Vol] 62 U/L 34-104 [facility] Aspartate aminotransferase [ Enzymatic activity/volume] in Serum or PlasmaOrdered By: David Mei on 11-25-2022 AST [Catalytic activity/Vol] 22 U/L 13-39 [facility] Automated erythrocytes count in urine sediment (number/area)Ordered By: David Mei on 11-25-2022 RBC Auto (Urine sed) [#/Area] 1-2 [HPF] 0-4 [facility] Automated leukocytes count i n urine sediment (number/area)Ordered By: David Mei on 11-25-2022 WBC Auto (Urine sed) [#/Area] 0-1 [HPF] 0-4 [facility] Basophils Auto (Bld) [#/Vol] Ordered By: David Mei on 11-25-2022 Basophils (Bld) [#/Vol] 0.0 10*3/uL 0.0-0.2 [facility] Basophils/100 WBC Auto (Bld) Ordered By: David Mei on 11-25-2022 Basophils/100 WBC (Bld) 0.7 % . [facility] Bilirubin Test strip Ql (U)O rdered By: David Mei on 11-25-2022 Bilirubin Ql (U) Negative Negative [facility] Bilirubin.total [Mass/volume ] in Serum or PlasmaOrdered By: David Mei on 11-25-2022 Bilirubin [Mass/Vol] 0.3 mg/dL 0.3-1.0 [facility] Calcium [Mass/volume] in Ser um or PlasmaOrdered By: David Mei on 11-25-2022 Calcium [Mass/Vol] 9.2 mg/dL 8.6-10.3 [facility] Carbon dioxide, total [Moles /volume] in Serum or PlasmaOrdered By: David Mei on 11-25-2022 CO2 [Moles/Vol] 24.2 mmol/L 21.0-31.0 [facility] Chloride [Moles/volume] in S samson or PlasmaOrdered By: David Mei on 11-25-2022 Chloride [Moles/Vol] 107 mmol/L 98-107 [facility] Color Auto (U)Ordered By: Lizz Mei on 11-25-2022 Color (U) Yellow Yellow [facility] Creatinine [Mass/volume] in Serum or PlasmaOrdered By: David Mei on 11-25-2022 Creatinine [Mass/Vol] 0.68 mg/dL 0.60-1.20 [facility] Eosinophils Auto (Bld) [#/Vo l]Ordered By: David Mei on 11-25-2022 Eosinophils (Bld) [#/Vol] 0.1 10*3/uL 0.0-0.45 [facility] Eosinophils/100 WBC Auto (Bl d)Ordered By: David Mei on 11-25-2022 Eosinophils/100 WBC (Bld) 1.9 % . [facility] Erythrocyte distribution wid th Auto (RBC) [Ratio]Ordered By: David Mei on 11-25-2022 Erythrocyte distribution width (RBC) [Ratio] 14.1 % 11.9-15.3 [facility] Globulin Calc (S) [Mass/Vol] Ordered By: David Mei on 11-25-2022 Globulin (S) [Mass/Vol] 2.7 g/dL [facility] Glucose [Mass/volume] in Ser um or PlasmaOrdered By: David Mei on 11-25-2022 Glucose [Mass/Vol] 88 mg/dL 70-100 [facility] Comment on above: ADA recommended refe rence rangeRandom Glucose Reference Range is dependent on time and content of last meal. Glucose of more than 200 mg/dL in a nonstressed, ambulatory subject supports the diagnosis of Diabetes Mellitus. Hematocrit Auto (Bld) [Volum e fraction]Ordered By: David Mei on 11-25-2022 Hematocrit (Bld) [Volume fraction] 35.0 % 34.0-46.4 [facility] Hemoglobin [Mass/volume] in BloodOrdered By: David Mei on 11-25-2022 Hemoglobin (Bld) [Mass/Vol] 11.9 g/dL 11.8-15.4 [facility] Ketones Auto test strip (U) [Mass/Vol]Ordered By: David Mei on 11-25-2022 Ketones (U) [Mass/Vol] Negative [facility] - CoagulationOrde red By: David Mei on 11-25-2022 PT Coag (PPP) [Time] 11.5 s 9.0-12.9 [facility] - UrinalysisOrder ed By: David Mei on 11-25-2022 Hyaline casts LM Ql (Urine sed) 0-8 [LPF] 0-8 [facility] Leukocytes [#/volume] correc thor for nucleated erythrocytes in Blood by Automated counOrdered By: David Mei on 11-25-2022 WBC corrected for nucl RBC Auto (Bld) [#/Vol] 6.8 10*3/uL 3.8-11.6 [facility] Lymphocytes Auto (Bld) [#/Vo l]Ordered By: David Mei on 11-25-2022 Lymphocytes (Bld) [#/Vol] 2.7 10*3/uL 1.00-4.8 [facility] Lymphocytes/100 WBC Auto (Bl d)Ordered By: David Mei on 11-25-2022 Lymphocytes/100 WBC (Bld) 39.2 % . [facility] MCH Auto (RBC) [Entitic mass ]Ordered By: David Mei on 11-25-2022 MCH (RBC) [Entitic mass] 28.7 pg 24.7-34.3 [facility] MCHC Auto (RBC) [Mass/Vol]Or dered By: David Mei on 11-25-2022 MCHC (RBC) [Mass/Vol] 33.9 g/dL 32.0-35.0 [facility] MCV Auto (RBC) [Entitic vol] Ordered By: David Mei on 11-25-2022 MCV (RBC) [Entitic vol] 84.7 fL 80-100 [facility] Monocyte distribution width [Entitic volume] in Blood by AutomatedOrdered By: David Mei on 11-25-2022 Monocyte distribution width Auto (Bld) [Entitic vol] 16.26 % 0.00-20.00 [facility] Monocytes Auto (Bld) [#/Vol] Ordered By: David Mei on 11-25-2022 Monocytes (Bld) [#/Vol] 0.5 10*3/uL 0.0-0.8 [facility] Monocytes/100 WBC Auto (Bld) Ordered By: David Mei on 11-25-2022 Monocytes/100 WBC (Bld) 7.7 % . [facility] Neutrophils Auto (Bld) [#/Vo l]Ordered By: David Mei on 11-25-2022 Neutrophils (Bld) [#/Vol] 3.4 10*3/uL 1.8-7.7 [facility] Neutrophils/100 WBC Auto (Bl d)Ordered By: David Mei on 11-25-2022 Neutrophils/100 WBC (Bld) 50.5 % . [facility] Nitrite Test strip Ql (U)Ord ered By: David Mei on 11-25-2022 Nitrite Ql (U) Negative Negative [facility] No Panel InformationOrdered By: David Mei on 11-25-2022 Estimated GFR (CKD-EPI) > 60.0 mL/Min [facility] Creatinine Clearance (Chem 88.33 [facility] Nucleated erythrocytes [Pres ence] in Blood by Automated countOrdered By: David Mei on 11-25-2022 Nucleated RBC Auto Ql (Bld) 0.1 /100{WBC} 0-0.5 [facility] Platelet mean volume Auto (B ld) [Entitic vol]Ordered By: David Mei on 11-25-2022 Platelet mean volume (Bld) [Entitic vol] 7.7 fL 6.3-10.7 [facility] Platelet poor plasma interna tional normalized ratio (INR) by coagulation assay (relatOrdered By: David Mei on 11-25-2022 INR Coag (PPP) [Relative time] 1.0 {INR} [facility] Comment on above: INR Therapeutic Rang e A) Pre- and Peroperative OAT started two weeks before surgery. NOT HIP SURGERY: 1.5 - 2.5 HIP SURGERY: 2 - 3B) Primary and secondary prevention of venous THROMBOSIS: 2 - 3C) Active venous thrombosis, pulmonary embolismand prevention of recurrent venous thrombosis: 2 - 3D) Prevention of arterial thromboembolismincluding patients with mechanical heart valves: 3 - 4.5 Platelets Auto (Bld) [#/Vol] Ordered By: David Mei on 11-25-2022 Platelets (Bld) [#/Vol] 254 10*3/uL 150-450 [facility] Potassium [Moles/volume] in Serum or PlasmaOrdered By: David Mei on 11-25-2022 Potassium [Moles/Vol] 3.7 mmol/L 3.5-5.1 [facility] Protein Auto test strip (U) [Mass/Vol]Ordered By: David Mei on 11-25-2022 Protein (U) [Mass/Vol] Negative Negative [facility] Protein [Mass/volume] in Ser um or PlasmaOrdered By: David Mei on 11-25-2022 Protein [Mass/Vol] 6.8 g/dL 6.4-8.9 [facility] RBC Auto (Bld) [#/Vol]Ordere d By: David Mei on 11-25-2022 RBC (Bld) [#/Vol] 4.14 10*6/uL 3.60-5.00 [facility] Serum or plasma albumin/glob ulin mass ratioOrdered By: David Mei on 11-25-2022 Albumin/Globulin [Mass ratio] 1.5 {ratio} [facility] Serum or plasma anion gap de terminationOrdered By: David Mei on 11-25-2022 Anion gap [Moles/Vol] 11.5 mmol/L 6.0-15.0 [facility] Sodium [Moles/volume] in Ser um or PlasmaOrdered By: David Mei on 11-25-2022 Sodium [Moles/Vol] 139 mmol/L 136-145 [facility] Specific gravity Auto test s trip (U) [Rel density]Ordered By: David Mei on 11-25-2022 Specific gravity (U) [Rel density] 1.018 1.001-1.03 0 [facility] Squamous epithelial cells de tection in urine sediment by light microscopyOrdered By: David Mei on 11-25-2022 Epithelial cells.squamous LM Ql (Urine sed) None seen [HPF] 0-2 [facility] Urea nitrogen [Mass/volume] in Serum or PlasmaOrdered By: David Mei on 11-25-2022 Urea nitrogen [Mass/Vol] 15 mg/dL 7-25 [facility] Urine bacteria detection by automated methodOrdered By: David Mei on 11-25-2022 Bacteria Auto Ql (U) None seen None Seen [facility] Urine clarity by refractomet ry automatedOrdered By: David Mei on 11-25-2022 Clarity Refractometry automated (U) Clear Clear [facility] Urine glucose measurement by automated test strip (mass/volume)Ordered By: David Mei on 11-25-2022 Glucose Auto test strip (U) [Mass/Vol] Normal mg/dL Normal [facility] Urine hemoglobin detection b y automated test stripOrdered By: David Mei on 11-25-2022 Hemoglobin Auto test strip Ql (U) Negative Negative [facility] Urine leukocyte esterase det ection by automated test stripOrdered By: David Mei on 11-25-2022 Leukocyte esterase Auto test strip Ql (U) 1+ Negative [facility] Urobilinogen Auto test strip (U) [Mass/Vol]Ordered By: David Mei on 11-25-2022 Urobilinogen (U) [Mass/Vol] Normal mg/dL Normal [facility] WBC Auto (Bld) [#/Vol]Ordere d By: David Mei on 11-25-2022 WBC (Bld) [#/Vol] 6.8 10*3/uL 3.8-11.6 [facility] pH Auto test strip (U)Ordere d By: David Mei on 11-25-2022 pH (U) 6.5 [pH] 5.0-9.0 [facility] Quick Strepon 09-14-2022 S. pyogenes Org specific cx Ql (Throat) Negative [employer] Other Quick [employer]rep [employer] Other SARS-CoV-2 (COVID-19) RNA NA A+probe Ql (Resp)on 09-14-2022 SARS-CoV-2 (COVID-19) RNA ADONAY+probe Ql (Unsp spec) Negative [employer] Other EGD Study observation Narrat cordelia 08-03-2022 [facility]enterology Gastrointestinal Endoscopy Patient Name: Hank Liu Procedure Date: 07/30/2022 1:48 PM Date of : 1970 Admit Type: Outpatient Age: 52 Room: [facility] Gender: Female Note Status: [employer] Override Attending MD: Naty Booker Jr, DO Procedure: Upper GI endoscopy Indications: Epigastric abdominal pain, Dyspepsia, Heartburn, Esophageal reflux, Follow-up of ulcer of the GI tract, history gastric carcinoid Providers: Naty Booker Jr, DO Patient Profile: This is a 52 year old female. Refer to note in patient chart for documentation of history and physical. Patient has symptoms of acute epigastric abdominal pain, acute dyspepsia and acute heartburn. Referring Physician: Naty Booker Jr, DO (Referring MD), Trey Brown DO (Referring MD) Medicines: Propofol per Anesthesia, Monitored Anesthesia Care Complications: No immediate complications. Requesting Provider: Procedure: Pre-Anesthesia Assessment: - Prior to the procedure, a History and Physical was performed, and patient medications and allergies were reviewed. The patient's tolerance of previous anesthesia was also reviewed. The risks and benefits of the procedure and the sedation options and risks were discussed with the patient. All questions were answered, and informed consent was obtained. Prior Anticoagulants: The patient has taken no anticoagulant or antiplatelet agents. ASA Grade Assessment: III - A patient with severe systemic disease. After reviewing the risks and benefits, the patient was deemed in satisfactory condition to undergo the procedure. After obtaining informed consent, the endoscope was passed under direct vision. Throughout the procedure, the patient's blood pressure, pulse, and oxygen saturations were monitored continuously. The Endoscope was introduced through the mouth, and advanced to the second part of duodenum. I was present and participated during the entire procedure, including non-mei portions, and during the administration and monitoring of Moderate Sedation. The upper GI endoscopy was accomplished without difficulty. The patient tolerated the procedure well. Moderate Sedation: MAC anesthesia was administered by the anesthesia team. Findings: The examined esophagus was normal. The entire examined stomach was normal. Stomach was also examined on NBI, no obvious lesions. Random gastric biopsies were taken with a cold forceps for histology given history of carcinoid. The cardia and gastric fundus were normal on retroflexion. The examined duodenum was normal. Impression: - Normal esophagus. - Normal stomach. Biopsied. - Normal examined duodenum. Recommendation: - Await pathology results. - Discharge patient to home. - Resume regular diet. - Continue present medications. Procedure Code(s): --- Professional --- 68598, Esophagogastroduodenosco py, flexible, transoral; with biopsy, single or multiple Diagnosis Code(s): --- Professional --- R10.13, Epigastric pain R12, Heartburn K21.9, Gastro-esophageal reflux disease without esophagitis K28.9, Gastrojejunal ulcer, unspecified as acute or chronic, without hemorrhage or perforation CPT copyright 2020 [employer]. All rights reserved. The codes documented in this report are preliminary and upon clearance cutter review may be revised to meet current compliance requirements. Scope In: 1:50:12 PM Scope Out: 1:52:16 PM MD Naty Joaquin Jr, 07/30/2022 1:56:56 PM This report has been signed electronically by Naty Booker Jr, DO Number of Addenda: 0 Note Initiated On: 07/30/2022 1:48 PM Estimated Blood Loss: Estimated blood loss: none. PROVATION [facility] SURGICAL PATHOLOGYOrdered By : David Ojeda on 08-03-2022 Addendum b2eymGBpYSJivSIbTCPf NVxh obJfCQMzuSFbU8DclazuNXul QB3oIG2afJcimHLfrLMrQXOt TaWig7sck972gJBsm7xbWNOV TAafZHPPAIn7v4lbSSGMjswx dIv6xNxfP90bp2F4MqjkS3oq ZWQwXGdyZWVuMFxibHVlMDt9 XHBhcGVydzEyMjQwXHBhcGVy vGL6JRBjIH2kytzoRVltZVqn JVImclS7UYToiIRmX7YaDJRw MA1flbmyYBE1EIrfESTsUJM4 TbAuOGCei8Wfwem1LzVhvCGk ZFxwbGFpblxmMVxmczIwIEdp esWdGTKbINPzMJLhR6FroH6x TA3sJZAoar1tlQKlI8DajYBt dGlzIGEgSGVsaWNvYmFjdGVy VIS6hK9aaIAtkQ26ac9bzRVm mfZ0TGGnsYXqYk2pbZKzIW4s LKCjd8IvNSXkBT8jZPznCV3y P0P0nECsMLGgphKFFBnvL44y WRW6JROxdXclt3AxZT8tH4Td dQVnfy2plZQjNBRxAMfyBEMz DLWkz0DfyV1vqPETKPWavK1c ZWQgVGVzdCAoTERUKSBEaXNj jHAmrWZeSykhRQDiYALgSi1x cRTgQ0SyO9mfznZtbGLfvAD5 mXWvPJ0wLFertVAmi7dcv7Se U3eenVtaKWqzVFyohSCld0Lk qX5cDTKrCB13PFGwHBWasENo lQ8cWL4uHjCsvb5tvUD1LIw2 PdPaASy6GXXij71qwNVlvXJg wLO4IJHfXXHjOGHepGTntYix BOEtEcumlDlaFMCfnkGykz2p tumjeLWdm9EjeB3frLD6lNEu bK7oO8egbzHwFW0eJKMxeA3r N1k3YWGcSrCtYqsrjjFBp2Ga ozFpTr0iOU1xmQZuoRPBFULs p1asD3zyUK3yGKzuMe9jGCNa flijAFEszDVmqqLiEP6gvNs3 uOCaHYmCPFasTZXnyGP3ieEZ l1KfhJBknLvvTIdtf29sQ3Iw DZXobQRAu2OwjTXugGomWiiu zmynQVMCFIR8r73hGE2kjKj1 QVqhDD4ddtH7QNzke2PbrEYc YMBSvhUqDV5aAmw6YIMdMRAy tDVdnYTDZD46UJLoXN4hTK2s pjSbzcWRHYGhtKysHd4xuJau TY7neFd1GFmxGPliNXBalMUt qdGwOYOjesInw4AgzwNjj3a9 dNXJWLiTGRByiSKpdmZiLC73 du2tX01pTW1gBR4peyEqk2Um yBvmq4CndEBhhFPslVF5FVAd y9GsJrEunjWxnYWkicOaJH9x HXHtmHCgmoCkCJT2NNGmQEMU REEuIFJULVBMTUkgaXMgcmVn dWxhdGVkIHVuZGVyIENMSUEg YXMgcXVhbGlmaWVkIHRvIHBl tsSxjg3rwLxleA3wl82ydRT2 iQT5HRJfy4FcmyczZEIhFVYn LKIiy8XsGLTfHCY7l8ZpCFId dfFcjKrifOQzaPGqdKKae2Uh ps6mSVpxcPNbgE91kGMmka01 GZIdFNBzC6CaKHZzABUtADzs upEhwBsjCPXpm42meBQvuvQz e3ImlzJxRFCwK4uaWKDob5n6 aROjGWVqBLCvBRlfrYh1XXMn n896gn6gdlLkmJCunkFmrLPd x9ExmHD6CQe9HogmUHHiuCSg ZTrMBd9hdlUbMs7lJN9nCGRn IFxwYXJ9 [facility] Work Phone: Case Report Surgical Pathology Report Case: [id number] Authorizing Provider: Naty Booker Jr., DO Collected: 07/30/2022 01:52 PM Ordering Location: Ambulatory Surgery Received: 07/30/2022 08:20 PM Pathologist: David Ojeda MD Specimen: ANTRUM (STOMACH) BIOPSY, r/o h pylori [facility] Work Phone: FINAL DIAGNOSIS p9huqMFrLKAmbMNfMTHw NVxh qhWsBKNirQLsM4XgbtiiHDsx ON6uEW4mmZnmaIXrkCFnKRDy GkIlo3tfe361yLOrf0niLMEN bvhexDo2sPzzL87to7H7Qdzc C00qdLOzXRL7IQPjHAYpcCPd KKVwMIK2KNMzhZJxM0ydSJRg QX0hmxwjVQwyUJjpPDZyoHP4 ROWofQWdG7OiHQRkOSmmEZPt xen6AoIfYf4btSRkpZgwOEdw HHZmTSGvQQzySQBdViGyTO7c H6YfrMNnCgRyhlXqoP4pPBUv d9CdxUptmCRrFU6lSTYBoCEz suauCFupGXF2bPXsNOyga7Jq wUNejp0xkWLoGT3dWKLBaY15 xj2xnZP3h9LlFT3bL9HwBZT8 MEoyEXIfnaZWRNtpY14rYMQ7 HSNehYlec9OuLYYspcThsanr ECVxutsiFVQuAuGTA69vZzLu QbK5LvWkVcDpKKXtue1= [facility] Work Phone: Gross Description b1nliINsWHKyfYXZWCVm MDRc GO4nrSmivWi0yHerBENznhE1 qOIuYFznq7nvTBU6p9rumnDD ClxkZWZmMVxwYXBlcncxMjI0 OKixUBAuxdqxZSh4ABbbMMDf yNC9XSSecGQuR6QmLPGiES7b zss3HJL9RHcsVLCqWgZ1TISg BhVqFocpIAw3FMBjcrP1Soa8 FCDtVPEjnAZtl2M6NPpskane CALkiNWgQ478KUlhh7MccMXw DQpccGFyZCANCntcKlxlcGlj v2LwkKAlBTztADYaULOjXNux woikUJn6MWNjXErftKHgQX6w xTtgAddriAuag9KybLVoUVvi ZFSgAWUuGTneZWZsDN4AApKa KJT7WcXjUmZpYgR8FXl2LNPG FvHoRsSbXoe8BiE9JuIzKMv8 BYv1MJaQTzLgCGEeOnBsHcF0 USM6AIe9QVLrSJVoLrXkFWJc GFPvRTkaBNlgwBXoXY4ebVaf dLNpedNOCtCSPsOWMZ4oTJQA Z18ZG1oyWHUFE2BLPKsdIDWp ZOodJMRoJ22uu8EZg2EdAC1U UHp5xhPcvnnvoZ7cBPGcjsOz XZfkaLZiX6sdAaBuYHSEETRs dQJlOIAeouTxf4OpCAigrlEs cmUgdHdvIHBpZWNlcyBvZiB0 FZ7hUOQoCgXnyGzbr9SbLMMs W8ChW0M1pL3gHQSuOQLhFAO3 TSUhGlO9MHRuGbTrwF0tXN96 FXjnxXKwcGWmeMV5GABojO4v f81eKBHoz8JprKJjWnDyeKOp QZ3SOCHlxpRYRloeZVNgBSb7 lgYvrfp0eCLlQgYtBNxOez6h itQlqCJhcZ0enIwvqaDyTQRr j9ScJPHlVZBjV7sjkzKpTL9f KOJljO5cFunnEALoSMPCxUHq oHKaGUQaZhwfY6cmnvNvJP6w CZMRWOX9ZWR8LVmjHQQnVBsg fSLdTX1TIROLGWAzTbC9XgXf HaHmZFH1GwppPT9rfVJzIN1L SHNlvkQzoVLoyVXaLE6BEBFh oSPSZTE1LP3fEKl3RQynHCCk X8KiE4LjgmZctFSjQLOuelAl l0lnXQP0NZEptVXmpKOuZbYj TllnHRV9KVPiJNydLY9LNVAp CGB6UPugnI82qSVpYZ1XDAQx PAckDQPvESVuhuP4UKTqnYMg JCL6SF6ioFaicXIdmreifaW2 IA0KfQ== [facility] Work Phone: Performing Lab b8mouSUcGOSwxLNsGpWm MDAw WMNhm4duTUBmoBIcGfRiVcOd NzNvWkxnrZHmWMLiRmCst5zl m632uOCpv3epWBLbSmN2rYTg WTLokLAnZ579RCGzCXfqw0kz f3UzVZUeuAPhl2P6DXLJrxvf tXs8cLzsY67iw3Z5ZieiM7at EBOlHGYoF9DpIZ9cHVEuLtt3 KXH6BTO4NMHwIKVnY7ToZX1b GWCwcITtMFs1o0cmpQffSMUu OMJ9w4lsQJzahgPuRA2gqe3j xRh7u4uvulWaFKKiPXAlxPLI BORcG9RoiFkiIr8ksJr3nZqb VlojUXS9Wvc5OJ6bua06cpf5 lQmvPAKmmmvcJgU1RDzaFAKi lnunKCn8QXjgDJTzyPG5ICPq mMRqB8FqGKzuLN7qzra6IHS0 AJmqXZHjFqL2SXAnwABgRMAw xGztHMmrw365JOP4NtOeFK4i Y6Zfg3J7zJ8smPSrXRDmvKYv XwDvFRDrmk4bqZBaRKytg8Hd OXG9ifB3dWPyxYWdUUFwGC19 Xcmiw9DpUzlln0XhH14nlDQ4 VDfka6viGI8vIjF4ibZeZXew j5aaoP0sGhV4WCtaRP3iNZ9t VHUtdJ7qoehxZRBpRkBnvswf NHBmgOrmkvQzQx7jdZqvVAA5 NUtaH9tvlT9kPaQ3CDogW2ox sS1iZNi6WXnpkRP9BQWuwR6i GS6snswnk1joPBgoCYkkZCOk unG6iuFyADJdiTCnL9VfpI1p FYFrBY9jelacr8ggCHE2AWqe FSAwAUE4EuGlDIIqz2Vufiv0 XtUjv8BceFIjLGtgD38kp074 BNMaqgXkZ2pykCUiymifsBLa aeqlCKfejmB9VITpZEHxLWzi XGYxXGZzMjJcbGFuZzEwMzNc aGljaFxmMVxkYmNoXGYxXGxv C1cuOgHrPpDpPrMDqQAtlc8s aFkjKUvnmGJsjGWyuFC2tY1x COXfrnLqqf0qKDPwxMXFjXB3 JAlrrhNtZ2ieaqjbNOE2NNHs NVL5N3gdWQSNjlRwOLTqWBAt tRNsMURFMWU6WGW7BVRbAECW XSRmMPN3PPJ5HDVpSOAqdNVb XHBhclxwYXJkXHBsYWluXGYw BXGwPjCjsDeavX7jSdMeFiEm UznnWE6lUSGmG6icpRRlTJAx SORhA5smOfLvzO1suBewRBmw ZjJcZnMyMlxsdHJjaCBMYWJv uqN2z3G0HUefxIKjdemgEVdc vxCvEAlddorfTXPqGZihX6bw VnVdNGRhyQytTJoyw0VxBREd ESNdNsDiQPxdVOS7i7Q6VJdm bMHdmkCXTiKBEP6kzYUzfmha ZG6IDkywIMO7 [facility] Work Phone: [facility] Work Phone: EGD Study observation Narrat iveon 07-30-2022 Radiology Study observation (narrative) [facility] Albumin [Mass/volume] in Ser um or PlasmaOrdered By: Trey Brown on 06-16-2022 Albumin [Mass/Vol] 4.3 g/dL 3.2-5.5 [facility] Cholesterol [Mass/volume] in Serum or PlasmaOrdered By: Trey Brown on 06-16-2022 Cholesterol [Mass/Vol] 316 mg/dL 140-200 [facility] Comment on above: Chol less than 200 m g/dl low riskChol 201-239 mg/dl borderline riskChol 240 mg/dl and greater high risk Cholesterol in LDL Calc [Mas s/Vol]Ordered By: Trey Brown on 06-16-2022 Cholesterol in LDL [Mass/Vol] 220 mg/dL 0-100 [facility] Comment on above: LDL ATP III CLASSIFI CATIONLDL less than 100 mg/dL OptimalLDL 100-129 mg/dL Near or above optimalLDL 130-159 mg/dL Borderline highLDL 160-189 mg/dL HighLDL greater than 189 mg/dL Very high Cholesterol in VLDL Calc [Ma ss/Vol]Ordered By: Trey Brown on 06-16-2022 Cholesterol in VLDL [Mass/Vol] 42 mg/dL [facility] Creatinine [Mass/volume] in UrineOrdered By: Trey Brown on 06-16-2022 Creatinine (U) [Mass/Vol] 115.9 mg/dL [facility] Comment on above: No reference range e stablished Creatinine and Glomerular fi ltration rate.predicted panel (S/P/Bld)Ordered By: Trey Brown on 06-16-2022 Creatinine [Mass/Vol] 0.64 mg/dL 0.44-1.03 [facility] Estimated glomerular filtrat ion rate (GFR) non- AmericanOrdered By: Trey Brown on 06-16-2022 GFR/1.73 sq M.predicted among non-blacks MDRD (S/P/Bld) [Vol rate/Area] > 60 mL/Min [facility] Globulin Calc (S) [Mass/Vol] Ordered By: Trey Brown on 06-16-2022 Globulin (S) [Mass/Vol] 2.7 g/dL [facility] Glucose mean value [Mass/vol ume] in Blood Estimated from glycated hemoglobinOrdered By: Trey Brown on 06-16-2022 Average glucose Estimated from glycated hemoglobin (Bld) [Mass/Vol] 120 mg/dL [facility] Hemoglobin A1c percentageOrd ered By: Trey Brown on 06-16-2022 HbA1c (Bld) [Mass fraction] 5.8 % 4.3-5.6 [facility] Comment on above: Increased risk for d iabetes: 5.7 - 6.4diabetes: >6.4glycemic control for adults with diabetes: <7.0 No Panel InformationOrdered By: Trey Brown on 06-16-2022 25-Hydroxy Vitamin D Total 57.2 ng/mL 30-100 [facility] Comment on above: VITAMIN D STATUS 25( [place])VITAMIN D RANGE (ng/mL) Deficient <20 Insufficient 20 to <30Sufficient 30 to 100Reference: Traci MF,Alida KENT, Inocencio PERRY, et al. Evaluation,treatment, and prevention of vitamin D deficiency; an Endocrine Society clinical practice guideline. JCEM. 2010; 96(7):1911-30. Estimated GFR () > 60 mL/Min [facility] Comment on above: GFR estimated refere nce range: According to KDOQI guidelines, <60 ml/min/1.73m2 is sufficient to diagnose a patient with chronic kidney disease. Pharmacy Creatinine Clearance (Chem N/A [facility] Protein [Mass/volume] in Ser um or PlasmaOrdered By: Trey Brown on 06-16-2022 Protein [Mass/Vol] 7.0 g/dL 6.1-7.9 [facility] Serum or plasma alanine estes otransferase measurement without P-5'-P (enzymatic activiOrdered By: Trey Brown on 06-16-2022 ALT No additional P-5'-P [Catalytic activity/Vol] 16 U/L 10-60 [facility] Serum or plasma albumin/glob ulin mass ratioOrdered By: Trey Brown on 06-16-2022 Albumin/Globulin [Mass ratio] 1.6 {ratio} [facility] Serum or plasma alkaline avila sphatase measurement (enzymatic activity/volume)Ordered By: Trey Brown on 06-16-2022 ALP [Catalytic activity/Vol] 59 U/L 32-92 [facility] Serum or plasma anion gap de terminationOrdered By: Trey Brown on 06-16-2022 Anion gap [Moles/Vol] 12.0 mmol/L 6.0-15.0 [facility] Serum or plasma aspartate am inotransferase measurement (enzymatic activity/volume)Ordered By: Trey Brown on 06-16-2022 AST [Catalytic activity/Vol] 24 U/L 10-42 [facility] Serum or plasma calcium spencer urement (mass/volume)Ordered By: Trey Brown on 06-16-2022 Calcium [Mass/Vol] 9.8 mg/dL 8.2-10.2 [facility] Serum or plasma chloride esa surement (moles/volume)Ordered By: Trey Brown on 06-16-2022 Chloride [Moles/Vol] 104 mmol/L 95-114 [facility] Serum or plasma glucose spencer urement (mass/volume)Ordered By: Trey Brown on 06-16-2022 Glucose [Mass/Vol] 100 mg/dL 70-100 [facility] Comment on above: ADA recommended refe rence rangeRandom Glucose Reference Range is dependent on time and content of last meal. Glucose of more than 200 mg/dL in a nonstressed, ambulatory subject supports the diagnosis of Diabetes Mellitus. Serum or plasma high density lipoprotein (HDL) cholesterol measurementOrdered By: Trey Brown on 06-16-2022 Cholesterol in HDL [Mass/Vol] 53 mg/dL 35-85 [facility] Comment on above: HDL CHOL ATP-III CLA SSIFICATION Cardiovascular RiskHDL > or equal to 60 mg/dL LOWHDL < 40 mg/dL HIGH Serum or plasma potassium me asurement (moles/volume)Ordered By: Trey Brown on 06-16-2022 Potassium [Moles/Vol] 4.7 mmol/L 3.5-5.1 [facility] Serum or plasma sodium measu rement (moles/volume)Ordered By: Trey Brown on 06-16-2022 Sodium [Moles/Vol] 138 mmol/L 136-146 [facility] Serum or plasma total biliru bin measurement (mass/volume)Ordered By: Trey Brown on 06-16-2022 Bilirubin [Mass/Vol] 0.6 mg/dL 0.3-1.2 [facility] Serum or plasma total carbon dioxide measurement (moles/volume)Ordered By: Trey Brown on 06-16-2022 CO2 [Moles/Vol] 26.7 mmol/L 22.0-30.0 [facility] Serum or plasma total choles terol/high density lipoprotein (HDL) cholesterol mass ratOrdered By: Trey Brown on 06-16-2022 Cholesterol.total/Susan sterol in HDL [Mass ratio] 6.0 {ratio} <5.0 [facility] Serum or plasma urea nitroge n measurement (mass/volume)Ordered By: Trey Brown on 06-16-2022 Urea nitrogen [Mass/Vol] 11 mg/dL 9-23 [facility] TSH DL <= 0.005 mIU/L QnOrde red By: Trey Brown on 06-16-2022 TSH Qn 1.49 m[IU]/L 0.45-5.33 [facility] Triglyceride [Mass/volume] i n Serum or PlasmaOrdered By: Trey Brown on 06-16-2022 Triglyceride [Mass/Vol] 213 mg/dL 35-149 [facility] Comment on above: TRIG ATP III CLASSIF ICATIONTRIG less than 150 mg/dL NormalTRIG 150-199 mg/dL Borderline highTRIG 200-500 mg/dL High TRIG greater than 500 mg/dL Very highStandard traceable to the Center for Disease Conrtrol and Prevention (CDC) test method. Urine microalbumin measureme nt with detection limit of 20 mg/L or less (mass/volume)Ordered By: Trey Brown on 06-16-2022 Albumin DL <= 20 mg/L (U) [Mass/Vol] 0.5 mg/dL 0.0-1.8 [facility] Urine microalbumin/creatinin e mass ratioOrdered By: Trey Brown on 06-16-2022 Albumin/Creatinine DL <= 20 mg/L (U) [Mass ratio] 4.0 mg/g 0.0-30.0 [facility] Comment on above: 30-300 mg/g indicate s an increased risk for diabetic nephropathy. Greater than 300 mg/g is consistent with clinical nephropathy. (Am. J. Kidney Disease 1995, 25:107) Office Visit (Cardiology)on 06-08-2022 Follow-up visit Diagnoses/Problems Assessed Syncope (780.2) (R55) Palpitations (785.1) (R00.2) Status post placement of implantable loop recorder (V45.09) (Z95.818) Dyspnea (786.09) (R06.00) Encounter for medication counseling (V65.49) (Z71.89) Encounter to discuss test results (V65.49) (Z71.2) Class 2 obesity with body mass index (BMI) of 35.0 to 35.9 in adult (278.00,V85.35) (E66.9,Z68.35) Hyperlipidemia (272.4) (E78.5) Sleep apnea (780.57) (G47.30) Former smoker (V15.82) (Z87.891) Coronary artery calcification (414.00,414.4) (I25.10,I25.84) Orders Class 2 obesity with body mass index (BMI) of 35.0 to 35.9 in adult Healthy Weight Tips; Status:Complete - Retrospective Authorization; Done: 08Jun2022 Losing just 5 to 10 pounds may lower your risk of health problems.; Status:Complete - Retrospective Authorization; Done: 08Jun2022 Palpitations IO EKG Electrocardiogram- 12 Lead; Status:Active - Perform Order,Retrospective Authorization; Requested for:[id number]; Patient Instructions Continue same medications/treatment. Patient educated on proper medication use. Patient educated on risk factor modification. Please bring any lab results from other providers/physicians to your next appointment. Please bring all medicines, vitamins, and herbal supplements with you when you come to the office. Prescriptions will not be filled unless you are compliant with your follow up appointments or have a follow up appointment scheduled as per instruction of your physician. Refills should be requested at the time of your visit. Follow up in 7 months with device check Monthly remote checks Danica Baptiste LPN, am scribing for and in the presence of, Dr. Susana Floyd MD, FACC, FACP, FHRS. Chief Complaint Patient here for 6 month follow-up with [facility] Adult Risk Screening Initial Fall Risk Screening: HANK has not fallen in the last 6 months. Tobacco Screening: HANK does not use tobacco. History of Present Illness She is here for electrophysiology evaluation The patient is here to discuss syncope. Since loop recorder was implanted, she has had no arrhythmias to correlate with symptoms. She is now treated for DARNELL with CPAP. Overall she is pleased that her symptoms resolved after CPAP. She really feels great. Her activity level has increased. See ROS, PMH, FMH, and surgical history for details. SHe continues to work at [employer]. She is looking at starting a second job. Anxiety disorder. Medications weaned off by pt report. Former tobacco use. Quit last year. Tobacco cessation reinforced. Counseling 3 minutes for continued tobacco cessation. Calcium score 97 LAD Normal stress test Family history of coronary disease and heart attacks in their 50s years of age. No family history of sudden cardiac , or arrhythmia. Personal review of ECG and cardiac data reviewed Outside records: OV with Dr. Arredondo Dec 2021 Device check Oct 2021 OV Oct 2021 Loop recorder check September 2021, August [address] Arredondo June 2019 Event monitor February 2020 Echocardiogram February 2020 ECG: Today.Normal sinus rhythm. Normal axis. Corrected QT interval 420 ms Device check today. MARYSOL DM 3500. No events. Battery ok. Imp / Plan Syncope, near syncope, palpitation. Negative event monitors as no symptoms during the 30-day monitoring time. Status post loop recorder SJ [id number] loop recorder. Reviewed device checks. PVC's. Discussed mechanism. Continue Mg Ox. Hyperlipidemia. Chronic. Stable. Reviewed medications. On statin. Reviewed bloodwork. Former smoker. 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 Chronic diarrhea Gastric tumor status post resection Overweight Family history of coronary disease in their 50s years of age AHA recommendations for exercise, diet, and behavioral modification reviewed with pt. ASHLEY recovered The patient and I discussed the mechanism of arrhythmia, increased fluid status, ECG, loop recorder check remotes, device clinic evaluation before EP office visits, assocation of arrhythmias and DARNELL, indications for and types of medications, discussion if and what medication refills needed, treatment options, risks, benefits, and imponderables. [place] [employer] lifestyle changes and behavioral modification discussed. All questions answered in detail. Counseling over 50% visit regarding above. Patient appreciative of care. Active Problems Problems Carcinoid tumor (209.60) (D3A.00) Chest discomfort (786.59) (R07.89) Class 1 obesity with body mass index (BMI) of 33.0 to 33.9 in adult (278.00,V85.33) (E66.9,Z68.33) Coronary artery calcification (414.00,414.4) (I25.10,I25.84) COVID-19 virus infection (079.89) (U07.1) Dyspnea (786.09) (R06.00) Encounter for medication counseling (V65.49) (Z71.89) Encounter to discuss test results (V65.49) (Z71.2) Former smoker (V15.82) (Z87.891) Hyperl (more content not included)... Normal [employer] Tobacco Screening.on 023 Adult depression screening assessment No [facility] [employer] DO Work Phone: Fall risk assessment a) No falls within the last year [facility] DO Work Phone: Tobacco use status [facility] b) No M [facility] [employer] DO Work Phone: SARS-CoV-2 (COVID-19) RNA NA A+probe Ql (Resp)on 04-08-2022 SARS-CoV-2 (COVID-19) RNA ADONAY+probe Ql (Unsp spec) Positive [employer] Other XR chest 2V*on 04-08-2022 SARS-CoV-2 (COVID-19) RNA ADONAY+probe Ql (Unsp spec) CLINICAL HISTORY: Cough, fever, chest congestion and shortness of breath. COVID + today. [employer] Other XR chest 2V* [facility] [employer] Other XR chest 2V* [facility] [address] [place] [employer] Other XR chest 2V* [address] [place] [address] [employer] Other XR chest 2V* [place] [address] [facility] [employer] Other XR chest 2V* XRay Report [employer] Other XR chest 2V* Signed [employer] Other XR chest 2V* Patient: Jesus Manuel Liu MR#: [id number] Daisetta [employer] Other XR chest 2V* 30 [employer] Other XR chest 2V* : 1970 Acct:[id number] [employer] Other XR chest 2V* Age/Sex: 51 / F ADM Date: 04/08/22 [employer] Other XR chest 2V* Loc: [id number] Room: Ty pe: REG CLI [employer] Other XR chest 2V* Attending Dr: Hernando Hylton PA-C [employer] Other XR chest 2V* Copies to: NOMAN Sanchez [employer] Other XR chest 2V* Ordering Provider: NOMAN Webb [employer] Other XR chest 2V* Date of Service: 04/08/22 [employer] Other XR chest 2V* XR/XR chest 2V*: COUGH [employer] Other XR chest 2V* PA AND LATERAL CHEST: N [facility] [employer] Other XR chest 2V* COMPARISON: 12/09/2021 No rt [employer] Other XR chest 2V* There is minor coarsening of interstitial markings. There is no focal parenchymal consolidation, [employer] Other XR chest 2V* effusion or pneumothorax. The cardiac, hilar and mediastinal silhouettes are within normal limits. [employer] Other XR chest 2V* The visualized bony thorax is intact. There is endplate spurring at the spine. A loop recorder [employer] Other XR chest 2V* is noted. [employer] Other XR chest 2V* X R/XR chest 2V* [employer] Other XR chest 2V* IMPRESSION: [employer] Other XR chest 2V* NO ACUTE CARDIOPULMO NARY ABNORMALITY. [employer] Other XR chest 2V* Impression dictated by: Billie Edwards M.D.04/08/2022 6:40 PM [employer] Other XR chest 2V* Dictation Location: [place] [address] [employer] Other XR chest 2V* Transcribed By: SHARMAINE 04/08/22 1840 [employer] Other XR chest 2V* Dictated By: Billie Edwards MD 04/08/22 1839 [employer] Other XR chest 2V* Signed By: [employer] Other XR chest 2V* 04/08/22 1840 [employer] [facility] [employer] Other SURGICAL PATHOLOGYon Addendum Helicobacter pylori immunostain was performed on block A and is negative for Helicobacter pylori organisms. Laboratory Developed Test (LDT) Disclaimer: Positive and negative controls stain appropriately. Performance characteristics of immunohistochemical, immunofluorescent and chromogenic in-situ hybridization tests have been determined by [facility]'s [facility] Pathology and Laboratory Medicine [place] ([facility]) in a manner consistent with CLIA requirements. One or more of these tests have not been cleared or approved by the FDA. [facility] is regulated under CLIA as qualified to perform high-complexity testing. These tests are used for clinical purposes. They should not be regarded as investigational or for research. [facility] Case Report Surgical Pathology Report Case: [id number] Authorizing Provider: Naty Booker Jr., Collected: 02/25/2022 01:08 PM Ordering Location: Ambulatory Surgery Received: 02/25/2022 04:24 PM Pathologist: Lindsay Omer MD Specimen: ANTRUM (STOMACH) BIOPSY, antral ulcers [facility] FINAL DIAGNOSIS A. Stomach, antrum, ulcers, biopsy: - Erosive reactive gastropathy. - Helicobacter pylori stain pending, the result will be reported as an addendum. [facility] Gross Description A. ANTRUM (STOMACH) BIOPSY Received in formalin are two pieces of manning, soft tissue aggregating to 1.1 x 0.3 x 0.2 cm. Totally submitted in one cassette. Gross examination performed at [facility], [address] [place] [address] JT 02/26/2022 3:10 AM [facility] Performing Lab Diagnostic interpretation performed at [facility], [address] [facility] [address] CLIA# [id number] Roofing Technician: Ivan Jefferson M.D. [facility] EGD DIAGNOSTICon 02-25-2022 [facility] GLUCOSE, BLOOD (POC)on 02-25 Glucose [Mass/Vol] 96 mg/dL 74 - 99 mg/dL [facility] Urine culture routineOrdered By: Freddy Chen on 02-24-2022 Bacteria identified Cx Nom (U) 2 Days [facility] Albumin [Mass/volume] in Ser um or PlasmaOrdered By: Freddy Chen on 02-22-2022 Albumin [Mass/Vol] 4.1 g/dL 3.2-5.5 [facility] Automated erythrocytes count in urine sediment (number/area)Ordered By: Freddy Chen on 02-22-2022 RBC Auto (Urine sed) [#/Area] 0-1 [HPF] 0-4 [facility] Automated leukocytes count i n urine sediment (number/area)Ordered By: Freddy Chen on 02-22-2022 WBC Auto (Urine sed) [#/Area] 20-49 [HPF] 0-4 [facility] Basophils Auto (Bld) [#/Vol] Ordered By: Freddy Chen on 02-22-2022 Basophils (Bld) [#/Vol] 0.1 10*3/uL 0.0-0.2 [facility] Basophils/100 WBC Auto (Bld) Ordered By: Freddy Chen on 02-22-2022 Basophils/100 WBC (Bld) 0.9 % . [facility] Bilirubin Test strip Ql (U)O rdered By: Freddy Chen on 02-22-2022 Bilirubin Ql (U) Negative Negative [facility] Color Auto (U)Ordered By: Spring Chen on 02-22-2022 Color (U) Yellow Yellow [facility] Creatinine and Glomerular fi ltration rate.predicted panel (S/P/Bld)Ordered By: Freddy Chen on 02-22-2022 Creatinine [Mass/Vol] 0.63 mg/dL 0.44-1.03 [facility] Direct bilirubin measurement Ordered By: Freddy Chen on 02-22-2022 Bilirubin.direct [Mass/Vol] mg/dL 0.0-0.4 [facility] Eosinophils Auto (Bld) [#/Vo l]Ordered By: Freddy Chen on 02-22-2022 Eosinophils (Bld) [#/Vol] 0.1 10*3/uL 0.0-0.45 [facility] Eosinophils/100 WBC Auto (Bl d)Ordered By: Freddy Chen on 02-22-2022 Eosinophils/100 WBC (Bld) 1.3 % . [facility] Erythrocyte distribution wid th Auto (RBC) [Ratio]Ordered By: Freddy Chen on 02-22-2022 Erythrocyte distribution width (RBC) [Ratio] 14.2 % 11.9-15.3 [facility] Estimated glomerular filtrat ion rate (GFR) non- AmericanOrdered By: Freddy Chen on 02-22-2022 GFR/1.73 sq M.predicted among non-blacks MDRD (S/P/Bld) [Vol rate/Area] > 60 mL/Min [facility] Globulin Calc (S) [Mass/Vol] Ordered By: Freddy Chen on 02-22-2022 Globulin (S) [Mass/Vol] 3.1 g/dL [facility] HCG ( test) IA.rapi d Ql (U)Ordered By: ERIN YANG on 02-22-2022 HCG ( test) Ql (U) Negative [facility] Hematocrit Auto (Bld) [Volum e fraction]Ordered By: Freddy Chen on 02-22-2022 Hematocrit (Bld) [Volume fraction] 40.5 % 34.0-46.4 [facility] Hemoglobin [Mass/volume] in BloodOrdered By: Freddy Chen on 02-22-2022 Hemoglobin (Bld) [Mass/Vol] 13.5 g/dL 11.8-15.4 [facility] Ketones Auto test strip (U) [Mass/Vol]Ordered By: Freddy Chen on 02-22-2022 Ketones (U) [Mass/Vol] Negative Negative Fi [facility] - Chemistry and C hemistry - challengeOrdered By: Freddy Chen on 02-22-2022 Lipase [Catalytic activity/Vol] 29.0 U/L 22-51 [facility] Laboratory - Hematology and Cell countsOrdered By: Freddy Chen on 02-22-2022 Nucleated RBC/100 WBC (Bld) [Ratio] 0.0 % 0-0.5 [facility] - UrinalysisOrder ed By: Freddy Chen on 02-22-2022 Hyaline casts LM Ql (Urine sed) 0-8 [LPF] 0-8 [facility] Leukocytes [#/volume] in Blo od by Automated countOrdered By: Freddy Chen on 02-22-2022 WBC (Bld) [#/Vol] 7.4 10*3/uL 4.5-11.0 [facility] Lymphocytes Auto (Bld) [#/Vo l]Ordered By: Freddy Chen on 02-22-2022 Lymphocytes (Bld) [#/Vol] 1.5 10*3/uL 1.00-4.8 [facility] Lymphocytes/100 WBC Auto (Bl d)Ordered By: Freddy Chen on 02-22-2022 Lymphocytes/100 WBC (Bld) 20.0 % . [facility] MCH Auto (RBC) [Entitic mass ]Ordered By: Freddy Chen on 02-22-2022 MCH (RBC) [Entitic mass] 28.8 pg 24.7-34.3 [facility] MCHC Auto (RBC) [Mass/Vol]Or dered By: Freddy Chen on 02-22-2022 MCHC (RBC) [Mass/Vol] 33.3 g/dL 32.0-35.0 [facility] MCV Auto (RBC) [Entitic vol] Ordered By: Freddy Chen on 02-22-2022 MCV (RBC) [Entitic vol] 86.4 fL 80-100 [facility] Monocytes Auto (Bld) [#/Vol] Ordered By: Freddy Chen on 02-22-2022 Monocytes (Bld) [#/Vol] 0.5 10*3/uL 0.0-0.8 [facility] Monocytes/100 WBC Auto (Bld) Ordered By: Freddy Chen on 02-22-2022 Monocytes/100 WBC (Bld) 6.9 % . [facility] Neutrophils Auto (Bld) [#/Vo l]Ordered By: Freddy Chen on 02-22-2022 Neutrophils (Bld) [#/Vol] 5.3 10*3/uL 1.8-7.7 [facility] Neutrophils/100 WBC Auto (Bl d)Ordered By: Freddy Chen on 02-22-2022 Neutrophils/100 WBC (Bld) 70.9 % . [facility] Nitrite Test strip Ql (U)Ord ered By: Freddy Chen on 02-22-2022 Nitrite Ql (U) Negative Negative [facility] No Panel InformationOrdered By: Freddy Chen on 02-22-2022 Estimated GFR () > 60 mL/Min [facility] Comment on above: GFR estimated refere nce range: According to KDOQI guidelines, <60 ml/min/1.73m2 is sufficient to diagnose a patient with chronic kidney disease. Pharmacy Creatinine Clearance (Chem 101.48 [facility] Platelet mean volume Auto (B ld) [Entitic vol]Ordered By: Freddy Chen on 02-22-2022 Platelet mean volume (Bld) [Entitic vol] 7.6 fL 6.3-10.7 [facility] Platelets Auto (Bld) [#/Vol] Ordered By: Freddy Chen on 02-22-2022 Platelets (Bld) [#/Vol] 271 10*3/uL 150-450 [facility] Protein Auto test strip (U) [Mass/Vol]Ordered By: Freddy Chen on 02-22-2022 Protein (U) [Mass/Vol] Negative Negative [facility] Protein [Mass/volume] in Ser um or PlasmaOrdered By: Freddy Chen on 02-22-2022 Protein [Mass/Vol] 7.2 g/dL 6.1-7.9 [facility] RBC Auto (Bld) [#/Vol]Ordere d By: Freddy Chen on 02-22-2022 RBC (Bld) [#/Vol] 4.69 10*6/uL 3.60-5.00 [facility] Serum or plasma alanine estes otransferase measurement without P-5'-P (enzymatic activiOrdered By: Freddy Chen on 02-22-2022 ALT No additional P-5'-P [Catalytic activity/Vol] 19 U/L 10-60 [facility] Serum or plasma albumin/glob ulin mass ratioOrdered By: Freddy Chen on 02-22-2022 Albumin/Globulin [Mass ratio] 1.3 {ratio} [facility] Serum or plasma alkaline avila sphatase measurement (enzymatic activity/volume)Ordered By: Freddy Chen on 02-22-2022 ALP [Catalytic activity/Vol] 61 U/L 32-92 [facility] Serum or plasma anion gap de terminationOrdered By: Freddy Chen on 02-22-2022 Anion gap [Moles/Vol] 10.4 mmol/L 6.0-15.0 [facility] Serum or plasma aspartate am inotransferase measurement (enzymatic activity/volume)Ordered By: Freddy Chen on 02-22-2022 AST [Catalytic activity/Vol] 30 U/L 10-42 [facility] Serum or plasma calcium spencer urement (mass/volume)Ordered By: Freddy Chen on 02-22-2022 Calcium [Mass/Vol] 9.5 mg/dL 8.2-10.2 [facility] Serum or plasma chloride esa surement (moles/volume)Ordered By: Freddy Chen on 02-22-2022 Chloride [Moles/Vol] 105 mmol/L 95-114 [facility] Serum or plasma glucose spencer urement (mass/volume)Ordered By: rFeddy Chen on 02-22-2022 Glucose [Mass/Vol] 113 mg/dL 70-100 [facility] Comment on above: ADA recommended refe rence rangeRandom Glucose Reference Range is dependent on time and content of last meal. Glucose of more than 200 mg/dL in a nonstressed, ambulatory subject supports the diagnosis of Diabetes Mellitus. Serum or plasma non-glucuron idated bilirubin measurement (mass/volume)Ordered By: Freddy Chen on 02-22-2022 Bilirubin.indirect [Mass/Vol] TNP [facility] Comment on above: Test not performed Serum or plasma potassium me asurement (moles/volume)Ordered By: Freddy Chen on 02-22-2022 Potassium [Moles/Vol] 4.0 mmol/L 3.5-5.1 [facility] Serum or plasma sodium measu rement (moles/volume)Ordered By: Freddy Chen on 02-22-2022 Sodium [Moles/Vol] 137 mmol/L 136-146 [facility] Serum or plasma total biliru bin measurement (mass/volume)Ordered By: Freddy Chen on 02-22-2022 Bilirubin [Mass/Vol] 0.6 mg/dL 0.3-1.2 [facility] Serum or plasma total carbon dioxide measurement (moles/volume)Ordered By: Freddy Chen on 02-22-2022 CO2 [Moles/Vol] 25.6 mmol/L 22.0-30.0 [facility] Serum or plasma urea nitroge n measurement (mass/volume)Ordered By: Freddy Chen on 02-22-2022 Urea nitrogen [Mass/Vol] 9 mg/dL 9-23 [facility] Specific gravity Auto test s trip (U) [Rel density]Ordered By: Freddy Chen on 02-22-2022 Specific gravity (U) [Rel density] 1.019 1.001-1.03 0 [facility] Squamous epithelial cells de tection in urine sediment by light microscopyOrdered By: Freddy Chen on 02-22-2022 Epithelial cells.squamous LM Ql (Urine sed) 5-9 [HPF] 0-2 [facility] Urine bacteria detection by automated methodOrdered By: Freddy Chen on 02-22-2022 Bacteria Auto Ql (U) None seen None Seen [facility] Urine clarity by refractomet ry automatedOrdered By: Freddy Chen on 02-22-2022 Clarity Refractometry automated (U) Clear Clear [facility] Urine glucose measurement by automated test strip (mass/volume)Ordered By: Freddy Chen on 02-22-2022 Glucose Auto test strip (U) [Mass/Vol] Normal mg/dL Normal [facility] Urine hemoglobin detection b y automated test stripOrdered By: Freddy Chen on 02-22-2022 Hemoglobin Auto test strip Ql (U) Trace Negative [facility] Urine leukocyte esterase det ection by automated test stripOrdered By: Freddy Chen on 02-22-2022 Leukocyte esterase Auto test strip Ql (U) 3+ Negative [facility] Urobilinogen Auto test strip (U) [Mass/Vol]Ordered By: Freddy Chen on 02-22-2022 Urobilinogen (U) [Mass/Vol] Normal mg/dL Normal [facility] pH Auto test strip (U)Ordere d By: Freddy Chen on 02-22-2022 pH (U) 5.5 [pH] 5.0-9.0 [facility] XR Elbow Complete Left*on XR Elbow Complete Left* CLINICAL HISTORY : Sharp pain to the left posterior elbow for 1 hour. No known injury. COMPARISON: None. TECHNIQUE: 4 Views were obtained. FINDINGS: No signs of fracture, dislocation or osseous destruction.Joint spaces are well maintained. Fat pads have a normal appearance. IMPRESSION: NO FRACTURE OR DISLOCATION. Report reported and signed by Krista Sherman on 02/04/2022 1323 Normal [facility] Office Visit (Cardiology)on 12-31-2021 Follow-up visit Diagnoses/Problems Assessed Coronary artery calcification (414.00,414.4) (I25.10,I25.84) Status post placement of implantable loop recorder (V45.09) (Z95.818) Palpitations (785.1) (R00.2) Hyperlipidemia (272.4) (E78.5) Former smoker (V15.82) (Z87.891) Class 1 obesity with body mass index (BMI) of 33.0 to 33.9 in adult (278.00,V85.33) (E66.9,Z68.33) Sleep apnea (780.57) (G47.30) Orders Class 1 obesity with body mass index (BMI) of 33.0 to 33.9 in adult Healthy Weight Tips; Status:Complete - Retrospective Authorization; Done: [id number] Some eating tips that can help you lose weight.; Status:Complete - Retrospective Authorization; Done: [id number] Coronary artery calcification Continue with our present treatment plan.; Status:Complete - Retrospective Authorization; Done: [id number] Hyperlipidemia Renew: Rosuvastatin Calcium 10 MG Oral Tablet; TAKE 1 TABLET DAILY SocHx: Former smoker Tobacco Use Screening; Status:Complete; Done: [id number] Patient Instructions Please bring all medicines, vitamins, and herbal supplements with you when you come to the office. Prescriptions will not be filled unless you are compliant with your follow up appointments or have a follow up appointment scheduled as per instruction of your physician. Refills should be requested at the time of your visit. Follow up in 6 months no asa needed. Chief Complaint HANK LIU is being seen for a 6 month follow-up of. Is in the office for follow-up of for the problems noted below. She was seen recently by Dr. Floyd and the loop monitor recorder has picked up pauses up to 3.5 seconds and the patient had some ventricular arrhythmias. When they tried to do EP study on her she became significantly apneic during anesthesia and test was aborted. Sleep apnea was suspected and patient has sleep study which proved to be positive and she is scheduled to get CPAP machine and follows now with pulmonary medicine. She continues to have symptoms of fatigue and lack of stamina. Highly consistent with sleep apnea that is untreated. She has been seen by her PCP and was started on metformin. Apparently she became glucose intolerant. She is trying to lose weight heart but has not been successful in doing so most likely because of her sleep apnea that is untreated. Assessment/recommendatio ns: 1?Constellation of symptoms of fatigue lack of stamina weight gain and inactivity caused by untreated sleep apnea. Patient is waiting for the CPAP machine to be delivered so she can start therapy. 2?obesity, Hard to lose weight however because of untreated sleep apnea this is hard and we expect improvement when she starts therapy. 3?hyperlipidemia on statin therapy, at the present time at a low dose, patient has intolerance to higher doses of statin 4-history of tobacco abuse ended several months ago. 5?status post loop recorder that picked up for pauses up to 3.5 seconds and PVCs. Electrophysiology is following. Advised patient to leave the loop recorder in October after she gets therapy for sleep apnea to ensure resolution of the problem. Surgical History Problems History of Bladder surgery History of Breast reduction History of section History of Cholecystectomy History of Colon surgery History of Complete colonoscopy History of Hysterectomy History of Loop recorder insertion History of Shoulder surgery History of Stomach surgery Current Meds Medication NameInstruction Creon [id number] UNIT Oral Capsule Delayed Release Particlesone tablet two to three times daily Fish Oil [id number] liquid as directed. Magnesium Oxide 400 MG Oral TabletTake 1 tablet twice daily Melatonin 10 MG Oral TabletTAKE 1 TABLET AT BEDTIME metFORMIN HCl - 500 MG Oral TabletTAKE 1 TABLET BY MOUTH EVERY DAY WITH SUPPER rOPINIRole HCl TABSTake 1 tablet twice daily Rosuvastatin Calcium 10 MG Oral TabletTAKE 1 TABLET DAILY. Topiramate 50 MG Oral TabletTAKE 1 TABLET BY MOUTH IN THE MORNING traZODone HCl - 100 MG Oral TabletTAKE 1 TABLET AT BEDTIME. Valtrex TABSTAKE 1 TABLET DAILY. Patient did not bring medication list or bottles. Updated verbally with patient Allergies Medication iodine Adverse Reaction; Shortness of breath;; Recorded By: Tonio Hayes; 04/06/2021 1:42:17 PM [id number] e Powder Adverse Reaction; Tachycardia; Recorded By: Tonio Hayes; 04/06/2021 1:42:17 PM Nubain Adverse Reaction; Myalgia; Recorded By: Tonio Hayes; 04/06/2021 1:42:17 PM Social History Problems Caffeine use (V49.89) (Z78.9) tea on occasional Former smoker (V15.82) (Z87.891) No alcohol use No illicit drug use Review of Systems Constitutional: not feeling tired. Cardiovascular: chest pain and palpitations, but no intermittent leg claudication and as noted in HPI. Respiratory: shortness of breath during exertion, but no cough and no shortness of breath. Gastrointestinal: no change in bowel habits and no blood in stools. Integumentary: no skin (more content not included)... Normal [employer] Tobacco Screening.on 022 Fall risk assessment c) Not medically indicated -[facility] [employer] 250 DO Work Phone: Tobacco use status CP b) No M -[facility] [employer] y 250 DO Work Phone: Activated partial thrombopla stin time (aPTT) in platelet poor plasma by coagulation aOrdered By: Alexander Cha on 12-09-2021 aPTT Coag (PPP) [Time] 30.8 s 25.1-36.5 [facility] Basophils Auto (Bld) [#/Vol] Ordered By: Alexander Cha on 12-09-2021 Basophils (Bld) [#/Vol] 0.0 10*3/uL 0.0-0.2 [facility] Basophils/100 WBC Auto (Bld) Ordered By: Alexander Cha on 12-09-2021 Basophils/100 WBC (Bld) 0.7 % . [facility] Blood hemoglobin measurement (mass/volume)Ordered By: Alexander Cha on 12-09-2021 Hemoglobin (Bld) [Mass/Vol] 12.7 g/dL 11.8-15.4 [facility] Blood leukocytes automated c ount (number/volume)Ordered By: Alexander Cha on 12-09-2021 WBC (Bld) [#/Vol] 4.7 10*3/uL 4.5-11.0 [facility] COVID CepheidOrdered By: Steve Leigh on 12-09-2021 SARS-CoV-2 (COVID-19) Ab IA Ql Negative Negative [facility] Comment on above: This is a duplicate [employer] Xpert Xpress CoV-2/Flu/RSV Plus RNA by RT-PCR result to be used for statistical tracking purpose only. SARS-CoV-2 (COVID-19) RNA ADONAY+probe Ql (Unsp spec) [facility] Creatine kinase [Enzymatic a ctivity/volume] in Serum or PlasmaOrdered By: Alexander Cha on 12-09-2021 CK [Catalytic activity/Vol] 161 U/L 22-269 [facility] Creatinine and Glomerular fi ltration rate.predicted panel (S/P/Bld)Ordered By: Alexander Cha on 12-09-2021 Creatinine [Mass/Vol] 0.68 mg/dL 0.44-1.03 [facility] Eosinophils Auto (Bld) [#/Vo l]Ordered By: Alexander Cha on 12-09-2021 Eosinophils (Bld) [#/Vol] 0.1 10*3/uL 0.0-0.45 [facility] Eosinophils/100 WBC Auto (Bl d)Ordered By: Alexander Cha on 12-09-2021 Eosinophils/100 WBC (Bld) 2.0 % . [facility] Erythrocyte distribution wid th Auto (RBC) [Ratio]Ordered By: Alexander hCa on 12-09-2021 Erythrocyte distribution width (RBC) [Ratio] 14.3 % 11.9-15.3 [facility] Estimated glomerular filtrat ion rate (GFR) non- AmericanOrdered By: Alexander Cha on 12-09-2021 GFR/1.73 sq M.predicted among non-blacks MDRD (S/P/Bld) [Vol rate/Area] > 60 mL/Min [facility] Hematocrit Auto (Bld) [Volum e fraction]Ordered By: Alexander Cha on 12-09-2021 Hematocrit (Bld) [Volume fraction] 38.8 % 34.0-46.4 [facility] Laboratory - Chemistry and C hemistry - challengeOrdered By: Alexander Cha on 12-09-2021 Natriuretic peptide B (Bld) [Mass/Vol] 9.0 pg/mL 5-100 [facility] Laboratory - CoagulationOrde red By: Alexander Cha on 12-09-2021 PT Coag (PPP) [Time] 11.6 s 9.0-12.9 [facility] Laboratory - Hematology and Cell countsOrdered By: Alexander Cha on 12-09-2021 Nucleated RBC/100 WBC (Bld) [Ratio] 0.1 % 0-0.5 [facility] - Microbiology an d Antimicrobial susceptibilityOrdered By: Raad Leigh on 12-09-2021 SARS-CoV-2 (COVID-19) RNA ADONAY+probe Ql (Unsp spec) N/A [facility] Lymphocytes Auto (Bld) [#/Vo l]Ordered By: Alexander Cha on 12-09-2021 Lymphocytes (Bld) [#/Vol] 2.0 10*3/uL 1.00-4.8 [facility] Lymphocytes/100 WBC Auto (Bl d)Ordered By: Alexander Cha on 12-09-2021 Lymphocytes/100 WBC (Bld) 42.5 % . [facility] MCH Auto (RBC) [Entitic mass ]Ordered By: Alexander Cha on 12-09-2021 MCH (RBC) [Entitic mass] 28.2 pg 24.7-34.3 [facility] MCHC Auto (RBC) [Mass/Vol]Or dered By: Alexander Cha on 12-09-2021 MCHC (RBC) [Mass/Vol] 32.8 g/dL 32.0-35.0 [facility] MCV Auto (RBC) [Entitic vol] Ordered By: Alexander Cha on 12-09-2021 MCV (RBC) [Entitic vol] 86.0 fL 80-100 [facility] Monocytes Auto (Bld) [#/Vol] Ordered By: Alexander Cha on 12-09-2021 Monocytes (Bld) [#/Vol] 0.4 10*3/uL 0.0-0.8 [facility] Monocytes/100 WBC Auto (Bld) Ordered By: Alexander Cha on 12-09-2021 Monocytes/100 WBC (Bld) 8.1 % . [facility] Neutrophils Auto (Bld) [#/Vo l]Ordered By: Alexander Cha on 12-09-2021 Neutrophils (Bld) [#/Vol] 2.2 10*3/uL 1.8-7.7 [facility] Neutrophils/100 WBC Auto (Bl d)Ordered By: Alexander Cha on 12-09-2021 Neutrophils/100 WBC (Bld) 46.7 % . [facility] No Panel InformationOrdered By: Alexander Cha on 12-09-2021 Estimated GFR () > 60 mL/Min [facility] Comment on above: GFR estimated refere nce range: According to KDOQI guidelines, <60 ml/min/1.73m2 is sufficient to diagnose a patient with chronic kidney disease. Pharmacy Creatinine Clearance (Chem 96.10 [facility] Platelet mean volume Auto (B ld) [Entitic vol]Ordered By: Alexander Cha on 12-09-2021 Platelet mean volume (Bld) [Entitic vol] 8.0 fL 6.3-10.7 [facility] Platelet poor plasma interna tional normalized ratio (INR) by coagulation assay (relatOrdered By: Alexander Cha on 12-09-2021 INR Coag (PPP) [Relative time] 1.0 {INR} [facility] Comment on above: INR Therapeutic Rang e A) Pre- and Peroperative OAT started two weeks before surgery. NOT HIP SURGERY: 1.5 - 2.5 HIP SURGERY: 2 - 3 B) Primary and secondary prevention of venous THROMBOSIS: 2 - 3 C) Active venous thrombosis, pulmonary embolism and prevention of recurrent venous thrombosis: 2 - 3 D) Prevention of arterial thromboembolism including patients with mechanical heart valves: 3 - 4.5 Platelets Auto (Bld) [#/Vol] Ordered By: Alexander Cha on 12-09-2021 Platelets (Bld) [#/Vol] 249 10*3/uL 150-450 [facility] RBC Auto (Bld) [#/Vol]Ordere d By: Alexander Cha on 12-09-2021 RBC (Bld) [#/Vol] 4.51 10*6/uL 3.60-5.00 [facility] Serum or plasma calcium spencer urement (mass/volume)Ordered By: Alexander Cha on 12-09-2021 Calcium [Mass/Vol] 9.6 mg/dL 8.2-10.2 [facility] Serum or plasma chloride esa surement (moles/volume)Ordered By: Alexander Cha on 12-09-2021 Chloride [Moles/Vol] 106 mmol/L 95-114 [facility] Serum or plasma creatine kin ase MB (CKMB)/total creatine kinase (CK) ratio by calculaOrdered By: Alexander Cha on 12-09-2021 CK.MB Calc [Catalytic fraction] 1.8 % 0.00-2.50 [facility] Serum or plasma creatine kin ase MB measurement (mass/volume)Ordered By: Alexander Cha on 12-09-2021 CK.MB [Mass/Vol] 2.9 ng/mL 0.6-6.3 [facility] Serum or plasma glucose spencer urement (mass/volume)Ordered By: Alexander Cha on 12-09-2021 Glucose [Mass/Vol] 96 mg/dL 70-100 [facility] Comment on above: ADA recommended refe rence range Random Glucose Reference Range is dependent on time and content of last meal. Glucose of more than 200 mg/dL in a nonstressed, ambulatory subject supports the diagnosis of Diabetes Mellitus. Serum or plasma potassium me asurement (moles/volume)Ordered By: Alexander Cha on 12-09-2021 Potassium [Moles/Vol] 3.7 mmol/L 3.5-5.1 [facility] Serum or plasma sodium measu rement (moles/volume)Ordered By: Alexander Cha on 12-09-2021 Sodium [Moles/Vol] 138 mmol/L 136-146 [facility] Serum or plasma total carbon dioxide measurement (moles/volume)Ordered By: Alexander Cha on 12-09-2021 CO2 [Moles/Vol] 23.2 mmol/L 22.0-30.0 [facility] Serum or plasma urea nitroge n measurement (mass/volume)Ordered By: Alexander Cha on 12-09-2021 Urea nitrogen [Mass/Vol] 11 mg/dL 9-23 [facility] Troponin I.cardiac [Mass/vol ume] in Serum or Plasma by High sensitivity methodOrdered By: Alexander Cha on 12-09-2021 Troponin I.cardiac High sensitivity method [Mass/Vol] < 3 pg/mL 0-15 [facility] COVID-19 SOFIAOrdered By: Ankita Floyd on 11-03-2021 SARS-CoV+SARS-CoV-2 (COVID-19) Ag IA.rapid Ql (Resp) Negative Negative [facility] Comment on above: This is a duplicate Ana Maria SARS Antigen (MARIO) result to be used for statistical tracking purpose only. Laboratory - Microbiology an d Antimicrobial susceptibilityon 11-03-2021 SARS-CoV-2 (COVID-19) RNA ADONAY+probe Ql (Unsp spec) [facility] [address] DO Work Phone: No Panel Informationon 11-03 Negative Normal Negative -[facility] [address] DO Work Phone: Comment on above: This is a duplicate Ana Maria SARS Antigen (MARIO) result to be used for statistical tracking purpose only.PERFORMED BY:[place] [address] [place] [id number] MEDICAL DIRECTORISMAEL WILKINSON M.D. No Panel InformationOrdered By: Susana Floyd on 11-03-2021 SARS Antigen (LFIA) [facility] Basophils Auto (Bld) [#/Vol] Ordered By: Trey Brown on 11-02-2021 Basophils (Bld) [#/Vol] 0.0 10*3/uL 0.0-0.2 [facility] Basophils/100 WBC Auto (Bld) Ordered By: Trey Brown on 11-02-2021 Basophils/100 WBC (Bld) 0.7 % . [facility] Blood hemoglobin measurement (mass/volume)Ordered By: Trey Brown on 11-02-2021 Hemoglobin (Bld) [Mass/Vol] 13.7 g/dL 11.8-15.4 [facility] Blood leukocytes automated c ount (number/volume)Ordered By: Trey Brown on 11-02-2021 WBC (Bld) [#/Vol] 5.6 10*3/uL 4.5-11.0 [facility] Body fluid albumin measureme nt (mass/volume)Ordered By: Trey Brown on 11-02-2021 Albumin (Body fld) [Mass/Vol] 4.3 g/dL 3.2-5.5 [facility] Cholesterol [Mass/volume] in Serum or PlasmaOrdered By: Trey Brown on 11-02-2021 Cholesterol [Mass/Vol] 271 mg/dL 140-200 [facility] Comment on above: Chol less than 200 m g/dl low risk Chol 201-239 mg/dl borderline risk Chol 240 mg/dl and greater high risk Cholesterol in LDL Calc [Mas s/Vol]Ordered By: Trey Brown on 11-02-2021 Cholesterol in LDL [Mass/Vol] 134 mg/dL 0-100 [facility] Comment on above: LDL ATP III CLASSIFI CATION LDL less than 100 mg/dL Optimal LDL 100-129 mg/dL Near or above optimal LDL 130-159 mg/dL Borderline high LDL 160-189 mg/dL High LDL greater than 189 mg/dL Very high Cholesterol in VLDL Calc [Ma ss/Vol]Ordered By: Trey Brown on 11-02-2021 Cholesterol in VLDL [Mass/Vol] 64 mg/dL [facility] Creatinine and Glomerular fi ltration rate.predicted panel (S/P/Bld)Ordered By: Trey Brown on 11-02-2021 Creatinine [Mass/Vol] 0.64 mg/dL 0.44-1.03 [facility] Eosinophils Auto (Bld) [#/Vo l]Ordered By: Trey Brown on 11-02-2021 Eosinophils (Bld) [#/Vol] 0.2 10*3/uL 0.0-0.45 [facility] Eosinophils/100 WBC Auto (Bl d)Ordered By: Trey Brown on 11-02-2021 Eosinophils/100 WBC (Bld) 2.8 % . [facility] Erythrocyte distribution wid th Auto (RBC) [Ratio]Ordered By: Trey Brown on 11-02-2021 Erythrocyte distribution width (RBC) [Ratio] 13.8 % 11.9-15.3 [facility] Estimated glomerular filtrat ion rate (GFR) non- AmericanOrdered By: Trey Brown on 11-02-2021 GFR/1.73 sq M.predicted among non-blacks MDRD (S/P/Bld) [Vol rate/Area] > 60 mL/Min [facility] Globulin Calc (S) [Mass/Vol] Ordered By: Trey Brown on 11-02-2021 Globulin (S) [Mass/Vol] 2.5 g/dL [facility] Hematocrit Auto (Bld) [Volum e fraction]Ordered By: Trey Brown on 11-02-2021 Hematocrit (Bld) [Volume fraction] 41.3 % 34.0-46.4 [facility] Laboratory - Chemistry and C hemistry - challengeOrdered By: Trey Brown on 11-02-2021 Magnesium [Mass/Vol] 2.0 mg/dL 1.6-2.6 [facility] - CoagulationOrde red By: Susana Floyd on 11-02-2021 PT Coag (PPP) [Time] 10.9 s 9.0-12.9 [facility] - Hematology and Cell countsOrdered By: Trey Brown on 11-02-2021 Nucleated RBC/100 WBC (Bld) [Ratio] 0.1 % 0-0.5 [facility] Lymphocytes Auto (Bld) [#/Vo l]Ordered By: Trey Brown on 11-02-2021 Lymphocytes (Bld) [#/Vol] 2.4 10*3/uL 1.00-4.8 [facility] Lymphocytes/100 WBC Auto (Bl d)Ordered By: Trey Brown on 11-02-2021 Lymphocytes/100 WBC (Bld) 41.8 % . [facility] MCH Auto (RBC) [Entitic mass ]Ordered By: Trey Brown on 11-02-2021 MCH (RBC) [Entitic mass] 28.5 pg 24.7-34.3 [facility] MCHC Auto (RBC) [Mass/Vol]Or dered By: Trey Brown on 11-02-2021 MCHC (RBC) [Mass/Vol] 33.1 g/dL 32.0-35.0 [facility] MCV Auto (RBC) [Entitic vol] Ordered By: Trey Brown on 11-02-2021 MCV (RBC) [Entitic vol] 86.1 fL 80-100 [facility] Monocytes Auto (Bld) [#/Vol] Ordered By: Trey Brown on 11-02-2021 Monocytes (Bld) [#/Vol] 0.5 10*3/uL 0.0-0.8 [facility] Monocytes/100 WBC Auto (Bld) Ordered By: Trey Brown on 11-02-2021 Monocytes/100 WBC (Bld) 8.4 % . [facility] Neutrophils Auto (Bld) [#/Vo l]Ordered By: Trey Brown on 11-02-2021 Neutrophils (Bld) [#/Vol] 2.6 10*3/uL 1.8-7.7 [facility] Neutrophils/100 WBC Auto (Bl d)Ordered By: Trey Brown on 11-02-2021 Neutrophils/100 WBC (Bld) 46.3 % . [facility] No Panel Informationon 11-02 1.0\S\1.0 Normal [facility] [place] DO Work Phone: Comment on above: INR Therapeutic Rang e A) Pre- and Peroperative OAT started two weeks before surgery. NOT HIP SURGERY: 1.5 - 2.5 HIP SURGERY: 2 - 3 B) Primary and secondary prevention of venous THROMBOSIS: 2 - 3 C) Active venous thrombosis, pulmonary embolism and prevention of recurrent venous thrombosis: 2 - 3 D) Prevention of arterial thromboembolism including patients with mechanical heart valves: 3 - 4.5PERFORMED BY:[place] [id number] [place], [place] [id number] MEDICAL DIRECTORISMAEL WILKINSON M.D. 10.9\S\10.9 Normal 9.0-12.9 [facility] [place] DO Work Phone: No Panel InformationOrdered By: Trey Brown on 11-02-2021 25-Hydroxy Vitamin D Total 45.7 ng/mL 30-100 [facility] Comment on above: VITAMIN D STATUS 25( [place])VITAMIN D RANGE (ng/mL) Deficient <20 Insufficient 20 to <30 Sufficient 30 to 100 Reference: Trcai MF,Alida NC, Inocencio PERRY, et al. Evaluation,treatment, and prevention of vitamin D deficiency; an Endocrine Society clinical practice guideline. JCEM. 2010; 96(7):1911-30. Estimated GFR () > 60 mL/Min [facility] Comment on above: GFR estimated refere nce range: According to KDOQI guidelines, <60 ml/min/1.73m2 is sufficient to diagnose a patient with chronic kidney disease. Pharmacy Creatinine Clearance (Chem N/A [facility] Platelet mean volume Auto (B ld) [Entitic vol]Ordered By: Trey Brown on 11-02-2021 Platelet mean volume (Bld) [Entitic vol] 7.9 fL 6.3-10.7 [facility] Platelet poor plasma interna tional normalized ratio (INR) by coagulation assay (relatOrdered By: Susana Floyd on 11-02-2021 INR Coag (PPP) [Relative time] 1.0 {INR} [facility] Comment on above: INR Therapeutic Rang e A) Pre- and Peroperative OAT started two weeks before surgery. NOT HIP SURGERY: 1.5 - 2.5 HIP SURGERY: 2 - 3 B) Primary and secondary prevention of venous THROMBOSIS: 2 - 3 C) Active venous thrombosis, pulmonary embolism and prevention of recurrent venous thrombosis: 2 - 3 D) Prevention of arterial thromboembolism including patients with mechanical heart valves: 3 - 4.5 Platelets Auto (Bld) [#/Vol] Ordered By: Trey Brown on 11-02-2021 Platelets (Bld) [#/Vol] 268 10*3/uL 150-450 [facility] Protein [Mass/volume] in Ser um or PlasmaOrdered By: Trey Brown on 11-02-2021 Protein [Mass/Vol] 6.8 g/dL 6.1-7.9 [facility] RBC Auto (Bld) [#/Vol]Ordere d By: Trey Brown on 11-02-2021 RBC (Bld) [#/Vol] 4.80 10*6/uL 3.60-5.00 [facility] Serum or plasma alanine estes otransferase measurement without P-5'-P (enzymatic activiOrdered By: Trey Brown on 11-02-2021 ALT No additional P-5'-P [Catalytic activity/Vol] 22 U/L 10-60 [facility] Serum or plasma albumin/glob ulin mass ratioOrdered By: Trey Brown on 11-02-2021 Albumin/Globulin [Mass ratio] 1.7 {ratio} [facility] Serum or plasma alkaline avila sphatase measurement (enzymatic activity/volume)Ordered By: Trey Brown on 11-02-2021 ALP [Catalytic activity/Vol] 56 U/L 32-92 [facility] Serum or plasma aspartate am inotransferase measurement (enzymatic activity/volume)Ordered By: Trey Brown on 11-02-2021 AST [Catalytic activity/Vol] 31 U/L 10-42 [facility] Serum or plasma calcium spencer urement (mass/volume)Ordered By: Trey Brown on 11-02-2021 Calcium [Mass/Vol] 10.0 mg/dL 8.2-10.2 [facility] Serum or plasma chloride esa surement (moles/volume)Ordered By: Trey Brown on 11-02-2021 Chloride [Moles/Vol] 102 mmol/L 95-114 [facility] Serum or plasma glucose spencer urement (mass/volume)Ordered By: Trey Brown on 11-02-2021 Glucose [Mass/Vol] 106 mg/dL 70-100 [facility] Comment on above: ADA recommended refe rence range Random Glucose Reference Range is dependent on time and content of last meal. Glucose of more than 200 mg/dL in a nonstressed, ambulatory subject supports the diagnosis of Diabetes Mellitus. Serum or plasma high density lipoprotein (HDL) cholesterol measurementOrdered By: Trey Brown on 11-02-2021 Cholesterol in HDL [Mass/Vol] 73 mg/dL 35-85 [facility] Comment on above: HDL CHOL ATP-III CLA SSIFICATION Cardiovascular Risk HDL > or equal to 60 mg/dL LOW HDL < 40 mg/dL HIGH Serum or plasma potassium me asurement (moles/volume)Ordered By: Trey Brown on 11-02-2021 Potassium [Moles/Vol] 4.4 mmol/L 3.5-5.1 [facility] Serum or plasma sodium measu rement (moles/volume)Ordered By: Trey Brown on 11-02-2021 Sodium [Moles/Vol] 140 mmol/L 136-146 [facility] Serum or plasma total biliru bin measurement (mass/volume)Ordered By: Trey Brown on 11-02-2021 Bilirubin [Mass/Vol] 0.5 mg/dL 0.3-1.2 [facility] Serum or plasma total carbon dioxide measurement (moles/volume)Ordered By: Trey Brown on 11-02-2021 CO2 [Moles/Vol] 26.6 mmol/L 22.0-30.0 [facility] Serum or plasma total choles terol/high density lipoprotein (HDL) cholesterol mass ratOrdered By: Trey Brown on 11-02-2021 Cholesterol.total/Susan sterol in HDL [Mass ratio] 3.7 {ratio} <5.0 [facility] Serum or plasma urea nitroge n measurement (mass/volume)Ordered By: Trey Brown on 11-02-2021 Urea nitrogen [Mass/Vol] 10 mg/dL 9-23 [facility] Triglyceride [Mass/volume] i n Serum or PlasmaOrdered By: Trey Brown on 11-02-2021 Triglyceride [Mass/Vol] 320 mg/dL 35-149 [facility] Comment on above: TRIG ATP III CLASSIF ICATION TRIG less than 150 mg/dL Normal TRIG 150-199 mg/dL Borderline high TRIG 200-500 mg/dL High TRIG greater than 500 mg/dL Very high Standard traceable to the Center for Disease Conrtrol and Prevention (CDC) test method. Tobacco Screening.on 022 Fall risk assessment a) No falls within the last year [facility] [address] DO Work Phone: Tobacco use status CP b) No M [facility] [address] DO Work Phone: Tobacco Screening. Yes [facility] [address] DO Work Phone: Tobacco Screening.on 022 Heart Rate Regular [facility] [address] DO Work Phone: Tobacco use status CPHS b) No M [facility] [facility] DO Work Phone: Tobacco Screening. Yes [facility] [address] DO Work Phone: XR Chest 2 Views*on 05-28-19 22 XR Chest 2 Views* COMPARISON: date TECHNIQUE: Upright PA and lateral views of the chest were obtained. FINDINGS: Heart is normal in size. Lungs are clear and well expanded. No pleural effusion or pneumothorax. The bony thorax is unremarkable. There is a loop recorder in the soft tissues on the left. IMPRESSION: NO ACUTE CARDIOPULMONARY ABNORMALITY. Report reported and signed by PIA PONCE on 05/28/2021 1129 Normal [facility] Basic Metabolic Panelon 05-09 Anion gap [Moles/Vol] 16 mmol/L Normal 12-20 [facility] Specialist Comment on above: Result Comment: Effe ctive 05/14/2019 reference range changed. Performed By: #### C BCAD, BMP #### [facility] [address], [place] [id number] Calcium [Mass/Vol] 9.8 mg/dL Normal 8.6-10.2 [facility] Specialist Comment on above: Performed By: #### C BCAD, BMP #### [facility] [address], [place] [id number] Chloride [Moles/Vol] 105 mmol/L Normal 98-107 [facility] Specialist Comment on above: Performed By: #### C BCAD, BMP #### [facility] [address], [place] [id number] CO2 [Moles/Vol] 24 mmol/L Normal 20-31 [facility] Comment on above: Performed By: #### C BCAD, BMP #### [facility] [address], [place] [id number] Creatinine [Mass/Vol] 0.7 mg/dL Normal 0.6-1.4 [facility] Specialist Comment on above: Performed By: #### C BCAD, BMP #### [facility] [address], [place] [id number] eGFRAA 108 mL/min/1.73m2 Normal >60 [facility] Specialist Comment on above: Performed By: #### C HIPOLITO, BMP #### [facility] [address], [place] [id number] eGFRNAA 89 mL/min/1.73m2 Normal >60 [facility] Specialist Comment on above: Performed By: #### C HIPOLITO, BMP #### [facility] [address], [place] [id number] Glucose [Mass/Vol] 115 mg/dL High 65-99 [facility] Specialist Comment on above: Result Comment: For FASTING Glucose --- ADA reference ranges: Normal 65-99 mg/dl Prediabetes 100-125 Diabetes >/= 126 Performed By: #### C HIPOLITO, BMP #### [facility] [address], [place] [id number] Potassium [Moles/Vol] 4.5 mmol/L Normal 3.5-5.5 [facility] Comment on above: Performed By: #### C HIPOLITO, BMP #### [facility] [address], [place] [id number] Sodium [Moles/Vol] 140 mmol/L Normal 135-146 [facility] Specialist Comment on above: Performed By: #### C HIPOLITO, BMP #### [facility] [address], [place] [id number] Urea nitrogen [Mass/Vol] 10 mg/dL Normal 7-25 [facility] Specialist Comment on above: Performed By: #### C HIPOLITO, BMP #### [facility] [address], [place] [id number] Complete Blood Count with Au to Diffon 05-21-2021 Basophils (Bld) [#/Vol] 0.02 10*3/uL Normal 0.00-0.20 [facility] Specialist Comment on above: Performed By: #### C HIPOLITO, BMP #### [facility] [address], [place] [id number] Basophils/100 WBC (Bld) 0.4 % Normal [facility] Comment on above: Performed By: #### C BCAD, BMP #### [facility] [address], [place] [id number] Eosinophils (Bld) [#/Vol] 0.17 10*3/uL Normal 0.02-0.50 [facility] Specialist Comment on above: Performed By: #### C BCAD, BMP #### [facility] [address], [place] [id number] Eosinophils/100 WBC (Bld) 3.4 % Normal [facility] Specialist Comment on above: Performed By: #### C BCAAlexia, BMP #### [facility] [address], [place] [id number] Erythrocyte distribution width (RBC) [Ratio] 13.4 % Normal 11.0-15.0 [facility] Specialist Comment on above: Performed By: #### C BCAAlexia, BMP #### [facility] [address], [place] [id number] Hematocrit (Bld) [Volume fraction] 40.3 % Normal 35.0-47.0 [facility] Specialist Comment on above: Performed By: #### C BCAAlexia, BMP #### [facility] [address], [place] [id number] Hemoglobin (Bld) [Mass/Vol] 13.2 g/dL Normal 11.6-15.5 [facility] Specialist Comment on above: Performed By: #### C BCAAlexia, BMP #### [facility] [address], [place] [id number] Lymphocytes (Bld) [#/Vol] 2.1 10*3/uL Normal 0.9-3.9 [facility] Specialist Comment on above: Performed By: #### C BCAD, BMP #### [facility] [address], [place] [id number] Lymphocytes/100 WBC (Bld) 42.3 % Normal [facility] Specialist Comment on above: Performed By: #### C BCAD, BMP #### [facility] [address], [place] [id number] MCH (RBC) [Entitic mass] 28.4 pg Normal 27.0-33.0 [facility] Specialist Comment on above: Performed By: #### C BCAAlexia, BMP #### [facility] [address], [place] [id number] MCHC (RBC) [Mass/Vol] 32.8 g/dL Normal 32.0-36.0 [facility] Comment on above: Performed By: #### C BCAD, BMP #### [facility] [address], [place] [id number] MCV (RBC) [Entitic vol] 87 fL Normal 80-100 [facility] Comment on above: Performed By: #### C BCAD, BMP #### [facility] [address], [place] [id number] Monocytes (Bld) [#/Vol] 0.3 10*3/uL Normal 0.2-0.9 [facility] Comment on above: Performed By: #### C HIPOLITO, BMP #### [facility] [address], [place] [id number] Monocytes/100 WBC (Bld) 5.9 % Normal [facility] Comment on above: Performed By: #### C BCAAlexia, BMP #### [facility] [address], [place] [id number] Neutrophils (Bld) [#/Vol] 2.4 10*3/uL Normal 1.5-7.8 [facility] Comment on above: Performed By: #### C BCAAlexia, BMP #### [facility] [address], [place] [id number] Neutrophils/100 WBC (Bld) 47.8 % Normal [facility] Comment on above: Performed By: #### C BCAAlexia, BMP #### [facility] [address], [place] [id number] Platelet mean volume (Bld) [Entitic vol] 9.70 fL Normal 7.50-12.50 [facility] Comment on above: Performed By: #### C BCAD, BMP #### [facility] [address], [place] [id number] Platelets (Bld) [#/Vol] 328 10*3/uL Normal 140-400 [facility] Comment on above: Performed By: #### C BCAAlexia, BMP #### [facility] [address], [place] [id number] RBC (Bld) [#/Vol] 4.64 10*6/uL Normal 3.90-5.20 [facility] Specialist Comment on above: Performed By: #### C BCAD, BMP #### [facility] [address], [place] [id number] RDW-SD 42.2 fL Normal 37.0-50.0 [facility] Specialist Comment on above: Performed By: #### C BCAD, BMP #### [facility] [address], [place] [id number] WBC (Bld) [#/Vol] 5.1 10*3/uL Normal 3.8-11.0 [facility] Specialist Comment on above: Performed By: #### C BCAD, BMP #### [facility] [address], [place] [id number] XR Chest 2 Views*on 05-21-19 22 XR Chest 2 Views* CLINICAL HISTORY: Co vid infection 9 days ago. Cough and chest heaviness. Smoking history. COMPARISON: 05/13/2021 TECHNIQUE: Upright PA and lateral views of the chest were obtained. FINDINGS: Heart is normal in size. There is minimal ground glass infiltrate in the right lung base involving right middle lobe. No pleural effusion or pneumothorax. There are mild degenerative changes in the spine. A loop recorder overlying the left anterior chest. IMPRESSION: MINIMAL GROUND GLASS INFILTRATE IN RIGHT MIDDLE LOBE BASE. Report reported and signed by Krista Shermna on 05/22/2021 0923 Normal [facility] Specialist Tobacco Screening.on 021 Fall risk assessment a) No falls within the last year [facility] [employer] [address] DO Work Phone: Tobacco use status CPHS b) No M [facility] [place] [address] DO Work Phone: Quick Fluon 03-31-2021 FLUAV Ab CF (S) [Titer] Negative N [employer] Other FLUBV Ab CF (S) [Titer] Negative N [employer] Other [employer] Strepon 03-31-2021 S. pyogenes Org specific cx Ql (Throat) Negative [facility] [employer] Other Quick St[employer] Other [place] 06-28-2019 DANISHAN Telephone (UROLAE) -------- NOEHANK Fortino ([id number]) 1970 F Date Time Provider Department 06/28/19 JONH YEE During your visit today, we recorded the following information about you: Mili Nagy RN, RN 06/28/2019 3:25 PM Signed ----- Message from Jonh Yee sent at 06/28/2019 3:13 PM EST ----- Please call, renal us normal Mili Nagy RN, RN 06/28/2019 3:27 PM Signed Gave patient results she wants to know why she is having so much pain in back and right side if ultrasound is normal. Please advise. Thanks, KRISTI Martinez MD 06/28/2019 4:23 PM Signed She has an abnormal CT scan and needs to be seen at urology in [place]. Hopefully, she is scheduled to see them. On the CT scan it showed an abnormality. She is scheduled to see them tomorrow at 3:45 Neva Ritter CMA 06/29/2019 8:56 AM Signed Left message for patient to return call Neva Nagy RN, RN 06/29/2019 8:57 AM Signed Left a message for the patient to confirm that she is going to appointment in [place] today at 3:45pm. Left number to call back. KRISTI Hoffmann RN 06/29/2019 12:05 PM Signed Patient notified, she will keep her appointment today. Tammy Potter RN Allergies As of Date: 06/28/2019 Noted Allergy Reaction IODINATED CONTRAST MEDIA 11/29/2018 4 - Hives IODINE 04/18/2017 4 - Hives NUBAIN (NALBUPHINE HCL) 04/18/2017 16 - Unknown Date Reviewed: 06/26/2019 Reviewed by: Patricia Stanley Data Communications Engineer - Fully Assessed Reason for Visit: Results [95] Prescriptions as of 06/28/2019 Sig: IV CONTRAST (RADIOLOGY PROCED* CT Chest ABD/PEL-Inject, intr* Patient not taking: Reported on 06/28/2019 ENTERIC CONTRAST (RADIOLOGY P* For CT CHESTABD/PEL W IVCON R* Patient not taking: Reported on 06/28/2019 PREDNISONE 50 MG TABLET Take first tablet by mouth 13* Patient not taking: Reported on 06/28/2019 DIPHENHYDRAMINE 50 MG CAPSULE Take 1 capsule by mouth as di* Patient not taking: Reported on 06/28/2019 IV CONTRAST (RADIOLOGY PROCED* CT Chest ABD/PEL-Inject, intr* Patient not taking: Reported on 06/14/2019 ENTERIC CONTRAST (RADIOLOGY P* For CT CHESTABD/PEL W IVCON R* Patient not taking: Reported on 06/14/2019 IV CONTRAST (RADIOLOGY PROCED* CT Chest ABD/PEL-Inject, intr* Patient not taking: Reported on 06/14/2019 ENTERIC CONTRAST (RADIOLOGY P* For CT CHESTABD/PEL W IVCON R* Patient not taking: Reported on 06/14/2019 IV CONTRAST (RADIOLOGY PROCED* MRI Brain Inject, intravenous* Patient not taking: Reported on 06/14/2019 BACLOFEN 10 MG TABLET TAKE 1 TABLET BY MOUTH TWO TI* TRAZODONE 50 MG TABLET Take 100 mg by mouth daily at* ALPRAZOLAM 0.5 MG TABLET Take 0.5 mg by mouth twice da* ATORVASTATIN 20 MG TABLET Take 10 mg by mouth once laura* ESOMEPRAZOLE MAGNESIUM 40 MG * BID Problem List As Of Date 06/28/2019 Noted Resolved 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 Patient presents with the complaint of flank pain. Right side greater pain than left. 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 Resected in 2011 without adjuvant therapy. No hematuria or dysuria. - UA normal Flank pain started 4 days ago. Kidneys: The kidneys symmetrically enhance. 1-2 mm nonobstructing calculi are seen in the interpolar region of the right kidney. There is mild fullness of the right renal pelvis and right ureter. Mild urothelial thickening is seen in the proximal right ureter. No left renal calculi are seen. No left hydronephrosis is seen. Kidneys: The kidneys symmetrically enhance. 1-2 mm nonobstructing calculi are seen in the interpolar region of the right kidney. There is mild fullness of the right renal pelvis and right ureter. Mild urothelial thickening is seen in the proximal right ureter. No left renal calculi are seen. No left hydronephrosis is seen. We reviewed her CT scan. She is having significant flank pain today. Pain radiates from the right flank to the right lower abdomen. We discussed treatment options with her and will try arrange for follow-up in [place]. Viewed that if symptoms worsen she will require to the emergency room. She does have a history of mid-urethral sling. REVIEW OF SYSTEMS: GENERAL:No weight loss, malaise or fevers ALLERGIC/IMMUNOLOGIC: drug allergies HEENT:Eyes Positive for recent change in vision worsening eyesight RESPIRATORY: Negative for cough, hemoptysis, wheezing, COPD, dyspnea or shortness of breath CARDIOVASCULAR: Negative for chest pain, leg swelling, hypertension, CHF or palpitations GASTROINTESTINAL: No nausea, vomiting, or diarrhea GENITOURINARY: See HPI MUSCULOSKELETAL: joint pain or swelling, back pain and muscle pain NEUROLOGIC:Positive for tingle in hands SKIN:Negative for lesions, rash, and itching GLUCOSE UA (POCT) Negative 06/26/2019 BILIRUBIN UA (POCT) Negative 06/26/2019 KETONE UA (POCT) Negative 06/26/2019 SPECIFIC GRAVITY UA (POCT) >=1.030 06/26/2019 HEMOGLOBIN/BLOOD UA (POCT) Negative 06/26/2019 PH UA (POCT) 5.5 06/26/2019 PROTEIN UA (POCT) Negative 06/26/2019 UROBILINOGEN UA (POCT) 0.2 06/26/2019 NITRITE UA (POCT) Negative 06/26/2019 LEUKOCYTES UA (POCT) Negative 06/26/2019 COLOR UA (POCT) Yellow 06/26/2019 CLARITY UA (POCT) Clear 06/26/2019 PVR = 29 ml MEDICATIONS: iv contrast (will be provided with radiology test) CT Chest ABD/PEL-Inject, intravenously, once for 1 dose.No IV access, insert saline lock prior to the beginning of sedation, infusion, injection of imaging exam. Discontinue saline lock post exam. If Pt. has a central line or IVAD, may access for administration according to line specific nursing protocol. Once exam is complete flush line and de-access according to line specific nursing protocol in the CT contrast administration guidelines link. enteric contrast (will be provided with radiology test) For CT CHESTABD/PEL W IVCON Routine order Administer, As Directed One Time Only, via Oral, Rectal, both Oral and Rectal, Enteric Tube, Stoma or Indwelling Catheter, Enteric Contrast as designated per enteric contrast guidelines predniSONE (DELTASONE) 50 mg tab Take first tablet by mouth 13 hours prior to exam time, take second tablet 7 hours prior to exam time, and take third tablet 1 hour prior to exam time. diphenhydrAMINE (BENADRYL) 50 mg capsule Take 1 capsule by mouth as directed for 1 dose. one (1) hour prior to exam. iv contrast (will be provided with radiology test) CT Chest ABD/PEL-Inject, intravenously, once for 1 dose.No IV access, insert saline lock prior to the beginning of sedation, infusion, injection of imaging exam. Discontinue saline lock post exam. If Pt. has a central line or IVAD, may access for administration according to line specific nursing protocol. Once exam is complete flush line and de-access according to line specific nursing protocol in the CT contrast administration guidelines link. enteric contrast (will be provided with radiology test) For CT CHESTABD/PEL W IVCON Routine order Administer, As Directed One Time Only, via Oral, Rectal, both Oral and Rectal, Enteric Tube, Stoma or Indwelling Catheter, Enteric Contrast as designated per enteric contrast guidelines iv contrast (will be provided with radiology test) CT Chest ABD/PEL-Inject, intravenously, once for 1 dose.No IV access, insert saline lock prior to the beginning of sedation, infusion, injection of imaging exam. Discontinue saline lock post exam. If Pt. has a central line or IVAD, may access for administration according to line specific nursing protocol. Once exam is complete flush line and de-access according to line specific nursing protocol in the CT contrast administration guidelines link. enteric contrast (will be provided with radiology test) For CT CHESTABD/PEL W IVCON Routine order Administer, As Directed One Time Only, via Oral, Rectal, both Oral and Rectal, Enteric Tube, Stoma or Indwelling Catheter, Enteric Contrast as designated per enteric contrast guidelines iv contrast (will be provided with radiology test) MRI Brain Inject, intravenously, once for 1 dose.No IV access, insert saline lock prior to beginning of sedation, infusion, injection of imaging exam.Discontinue saline lock post exam. If Pt. has a central line or IVAD, may access for administration according to line specific nursing protocol.Once exam is complete flush line and de-access according to line specific nursing protocol in the MR contrast administration guidelines link baclofen (LIORESAL) 10 mg tablet TAKE 1 TABLET BY MOUTH TWO TIMES A DAY WITH FOOD OR MILK traZODone (DESYREL) 50 mg tablet Take 100 mg by mouth daily at bedtime. ALPRAZolam (XANAX) 0.5 mg tablet Take 0.5 mg by mouth twice daily. atorvastatin (LIPITOR) 20 mg tablet Take 10 mg by mouth once daily. esomeprazole (NEXIUM) 40 mg capsule BID HISTORIES PAST MEDICAL HISTORY Diagnosis Date - Carcinoid tumor of stomach - GERD (gastroesophageal reflux disease) - Hyperlipidemia FAMILY HISTORY Problem Relation Age of Onset - Diabetes Mother - Colon Cancer Mother 55 detected on autopsy - Aneurysm Mother 55 aortic - Heart disease Father - Hyperlipidemia Father - Cancer Brother 48 kidney - Cancer Brother spinal cord PAST SURGICAL HISTORY Procedure Laterality Date - ANESTH, SECTION - CHOLECYSTECTOMY - COLONOSCOPY 03/22/2016 - EGD - HYSTERECTOMY HX - LAP REMOVE/REV MESH BLADDER WALL - PAST SURGICAL HISTORY OF 04/2019 breast reconstruction - SLEEVE RESECTION STOMACH Social History Tobacco Use - Smoking status: Current Some Day Smoker - Smokeless tobacco: Never Used Substance Use Topics - Alcohol use: Yes - Drug use: No Physical Exam BP 122/82 Ht 158.8 cm (5' 2.5 ) Wt 77.1 kg (170 lb) BMI 30.60 kg/m? ASSESSMENT/PLAN: Urinary hesitancy Hydronephrosis, unspecified hydronephrosis type (primary encounter diagnosis) Return for in [place]. Consultation requested by Dr. Mena for an opinion regarding hydronephrosis. My final recommendations will be communicated back to the requesting physician by way of shared medical record or letter via [place] mail Referring Provider: ABENA MENA [[id number]] Allergies As of Date: 06/26/2019 Noted Allergy Reaction IODINATED CONTRAST MEDIA 11/29/2018 4 - Hives IODINE 04/18/2017 4 - Hives NUBAIN (NALBUPHINE HCL) 04/18/2017 16 - Unknown Date Reviewed: 06/26/2019 Reviewed by: Patricia Stanley Data Communications Engineer - Fully Assessed Reason for Visit: New Patient [172] Primary Visit Diagnosis:Hydronephrosis , unspecified hydronephrosis type [N13.30] Other Visit Diagnosis:Urinary hesitancy [R39.11] Order(s):CONSULT TO UROLOGY [9041] Order #: [id number]: 1 UA DIP, URINE (POC) [[id number]] Order #: [id number]. #:[id number] 01-LAB BLADDER SCAN [[id number]] Order #: [id number] KIDNEY/BLADDER [[id number]] Order #: [id number] FUTURE Prescriptions as of 06/26/2019 Sig: TRAZODONE 50 MG TABLET Take 100 mg by mouth daily at* ALPRAZOLAM 0.5 MG TABLET Take 0.5 mg by mouth twice da* ATORVASTATIN 20 MG TABLET Take 10 mg by mouth once laura* ESOMEPRAZOLE MAGNESIUM 40 MG * BID IV CONTRAST (RADIOLOGY PROCED* CT Chest ABD/PEL-Inject, intr* Patient not taking: Reported on 06/28/2019 ENTERIC CONTRAST (RADIOLOGY P* For CT CHESTABD/PEL W IVCON R* Patient not taking: Reported on 06/28/2019 PREDNISONE 50 MG TABLET Take first tablet by mouth 13* Patient not taking: Reported on 06/28/2019 DIPHENHYDRAMINE 50 MG CAPSULE Take 1 capsule by mouth as di* Patient not taking: Reported on 06/28/2019 IV CONTRAST (RADIOLOGY PROCED* CT Chest ABD/PEL-Inject, intr* Patient not taking: Reported on 06/14/2019 ENTERIC CONTRAST (RADIOLOGY P* For CT CHESTABD/PEL W IVCON R* Patient not taking: Reported on 06/14/2019 IV CONTRAST (RADIOLOGY PROCED* CT Chest ABD/PEL-Inject, intr* Patient not taking: Reported on 06/14/2019 ENTERIC CONTRAST (RADIOLOGY P* For CT CHESTABD/PEL W IVCON R* Patient not taking: Reported on 06/14/2019 IV CONTRAST (RADIOLOGY PROCED* MRI Brain Inject, intravenous* Patient not taking: Reported on 06/14/2019 BACLOFEN 10 MG TABLET TAKE 1 TABLET BY MOUTH TWO TI* Problem List As Of Date 06/26/2019 Noted Resolved Carcinoid tumor of stomach [D3A.092] Disposition: Return for in [place]. Follow-up and Disposition History Recorded Letter Text Encounter Status:Closed by JONH YEE MD on 06/26/19 [facility] PROGRESSon 06-26-2019 PROGRESS HNO ID: [id number] Author: Jonh Yee Service: ? Author Type: Physician Type: Progress Notes Filed: 06/26/2019 3:50 PM Note Text: NEW PATIENT HISTORY AND PHYSICAL EXAM HISTORY OF PRESENT ILLNESS: Hank Liu is a 49 year old female who presents as a new patient. Patient presents with the complaint of flank pain. Right side greater pain than left. 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 Resected in 2011 without adjuvant therapy. No hematuria or dysuria. - UA normal Flank pain started 4 days ago. Kidneys: The kidneys symmetrically enhance. 1-2 mm nonobstructing calculi are seen in the interpolar region of the right kidney. There is mild fullness of the right renal pelvis and right ureter. Mild urothelial thickening is seen in the proximal right ureter. No left renal calculi are seen. No left hydronephrosis is seen. Kidneys: The kidneys symmetrically enhance. 1-2 mm nonobstructing calculi are seen in the interpolar region of the right kidney. There is mild fullness of the right renal pelvis and right ureter. Mild urothelial thickening is seen in the proximal right ureter. No left renal calculi are seen. No left hydronephrosis is seen. We reviewed her CT scan. She is having significant flank pain today. Pain radiates from the right flank to the right lower abdomen. We discussed treatment options with her and will try arrange for follow-up in [place]. Viewed that if symptoms worsen she will require to the emergency room. She does have a history of mid-urethral sling. REVIEW OF SYSTEMS: GENERAL:No weight loss, malaise or fevers ALLERGIC/IMMUNOLOGIC: drug allergies HEENT:Eyes Positive for recent change in vision worsening eyesight RESPIRATORY: Negative for cough, hemoptysis, wheezing, COPD, dyspnea or shortness of breath CARDIOVASCULAR: Negative for chest pain, leg swelling, hypertension, CHF or palpitations GASTROINTESTINAL: No nausea, vomiting, or diarrhea GENITOURINARY: See HPI MUSCULOSKELETAL: joint pain or swelling, back pain and muscle pain NEUROLOGIC:Positive for tingle in hands SKIN:Negative for lesions, rash, and itching GLUCOSE UA (POCT) Negative 06/26/2019 BILIRUBIN UA (POCT) Negative 06/26/2019 KETONE UA (POCT) Negative 06/26/2019 SPECIFIC GRAVITY UA (POCT) >=1.030 06/26/2019 HEMOGLOBIN/BLOOD UA (POCT) Negative 06/26/2019 PH UA (POCT) 5.5 06/26/2019 PROTEIN UA (POCT) Negative 06/26/2019 UROBILINOGEN UA (POCT) 0.2 06/26/2019 NITRITE UA (POCT) Negative 06/26/2019 LEUKOCYTES UA (POCT) Negative 06/26/2019 COLOR UA (POCT) Yellow 06/26/2019 CLARITY UA (POCT) Clear 06/26/2019 PVR = 29 ml MEDICATIONS: iv contrast (will be provided with radiology test) CT Chest ABD/PEL-Inject, intravenously, once for 1 dose.No IV access, insert saline lock prior to the beginning of sedation, infusion, injection of imaging exam. Discontinue saline lock post exam. If Pt. has a central line or IVAD, may access for administration according to line specific nursing protocol. Once exam is complete flush line and de-access according to line specific nursing protocol in the CT contrast administration guidelines link. enteric contrast (will be provided with radiology test) For CT CHESTABD/PEL W IVCON Routine order Administer, As Directed One Time Only, via Oral, Rectal, both Oral and Rectal, Enteric Tube, Stoma or Indwelling Catheter, Enteric Contrast as designated per enteric contrast guidelines predniSONE (DELTASONE) 50 mg tab Take first tablet by mouth 13 hours prior to exam time, take second tablet 7 hours prior to exam time, and take third tablet 1 hour prior to exam time. diphenhydrAMINE (BENADRYL) 50 mg capsule Take 1 capsule by mouth as directed for 1 dose. one (1) hour prior to exam. iv contrast (will be provided with radiology test) CT Chest ABD/PEL-Inject, intravenously, once for 1 dose.No IV access, insert saline lock prior to the beginning of sedation, infusion, injection of imaging exam. Discontinue saline lock post exam. If Pt. has a central line or IVAD, may access for administration according to line specific nursing protocol. Once exam is complete flush line and de-access according to line specific nursing protocol in the CT contrast administration guidelines link. enteric contrast (will be provided with radiology test) For CT CHESTABD/PEL W IVCON Routine order Administer, As Directed One Time Only, via Oral, Rectal, both Oral and Rectal, Enteric Tube, Stoma or Indwelling Catheter, Enteric Contrast as designated per enteric contrast guidelines iv contrast (will be provided with radiology test) CT Chest ABD/PEL-Inject, intravenously, once for 1 dose.No IV access, insert saline lock prior to the beginning of sedation, infusion, injection of imaging exam. Discontinue saline lock post exam. If Pt. has a central line or IVAD, may access for administration according to line specific nursing protocol. Once exam is complete flush line and de-access according to line specific nursing protocol in the CT contrast administration guidelines link. enteric contrast (will be provided with radiology test) For CT CHESTABD/PEL W IVCON Routine order Administer, As Directed One Time Only, via Oral, Rectal, both Oral and Rectal, Enteric Tube, Stoma or Indwelling Catheter, Enteric Contrast as designated per enteric contrast guidelines iv contrast (will be provided with radiology test) MRI Brain Inject, intravenously, once for 1 dose.No IV access, insert saline lock prior to beginning of sedation, infusion, injection of imaging exam.Discontinue saline lock post exam. If Pt. has a central line or IVAD, may access for administration according to line specific nursing protocol.Once exam is complete flush line and de-access according to line specific nursing protocol in the MR contrast administration guidelines link baclofen (LIORESAL) 10 mg tablet TAKE 1 TABLET BY MOUTH TWO TIMES A DAY WITH FOOD OR MILK traZODone (DESYREL) 50 mg tablet Take 100 mg by mouth daily at bedtime. ALPRAZolam (XANAX) 0.5 mg tablet Take 0.5 mg by mouth twice daily. atorvastatin (LIPITOR) 20 mg tablet Take 10 mg by mouth once daily. esomeprazole (NEXIUM) 40 mg capsule BID HISTORIES PAST MEDICAL HISTORY Diagnosis Date - Carcinoid tumor of stomach - GERD (gastroesophageal reflux disease) - Hyperlipidemia FAMILY HISTORY Problem Relation Age of Onset - Diabetes Mother - Colon Cancer Mother 55 detected on autopsy - Aneurysm Mother 55 aortic - Heart disease Father - Hyperlipidemia Father - Cancer Brother 48 kidney - Cancer Brother spinal cord PAST SURGICAL HISTORY Procedure Laterality Date - ANESTH, SECTION - CHOLECYSTECTOMY - COLONOSCOPY 03/22/2016 - EGD - HYSTERECTOMY HX - LAP REMOVE/REV MESH BLADDER WALL - PAST SURGICAL HISTORY OF 04/2019 breast reconstruction - SLEEVE RESECTION STOMACH Social History Tobacco Use - Smoking status: Current Some Day Smoker - Smokeless tobacco: Never Used Substance Use Topics - Alcohol use: Yes - Drug use: No Physical Exam BP 122/82 Ht 158.8 cm (5' 2.5 ) Wt 77.1 kg (170 lb) BMI 30.60 kg/m? ASSESSMENT/PLAN: Urinary hesitancy Hydronephrosis, unspecified hydronephrosis type (primary encounter diagnosis) Return for in [place]. Consultation requested by Dr. Mena for an opinion regarding hydronephrosis. My final recommendations will be communicated back to the requesting physician by way of shared medical record or letter via US mail Normal [facility] Vital Signs Date Time Vital Sign Value Performing Clinician Facility 09-13-2024 09:19-0400 Body height 157.48 cm Trey Brown DO Work Phone: [facility] 09-13-2024 09:19-0400 Body mass index (BMI) [Ratio] 36.6 kg/m2 Trey Brown DO Work Phone: [facility] 09-13-2024 09:19-0400 Body temperature 98.4 [degF] Trey Brown DO Work Phone: [facility] 09-13-2024 09:19-0400 Body weight 90.71 kg Trey Brown DO Work Phone: [facility] 09-13-2024 09:19-0400 Diastolic blood pressure 85 mm[Hg] Trey Brown DO Work Phone: [facility] 09-13-2024 09:19-0400 Heart rate 73 /min Trey Brown DO Work Phone: [facility] 09-13-2024 09:19-0400 Respiratory rate 18 /min Trey Brown DO Work Phone: [facility] 09-13-2024 09:19-0400 SaO2% (BldA) [Mass fraction] 98 % Trey Brown DO Work Phone: [facility] 09-13-2024 09:19-0400 Systolic blood pressure 131 mm[Hg] Trey Brown DO Work Phone: [facility] 08-22-2024 08:40-0400 Body height 157.5 cm Trey Brown DO Work Phone: [facility] 08-22-2024 08:40-0400 Body mass index (BMI) [Ratio] 36.58 kg/m2 Trey Brown DO Work Phone: [facility] 08-22-2024 08:40-0400 Body weight 90.72 kg Trey Brown DO Work Phone: [facility] 08-22-2024 08:40-0400 Heart rate 84 /min Treyjak Brown DO Work Phone: [facility] 08-22-2024 08:40-0400 SaO2% (BldA) [Mass fraction] 97 % Trey Brown DO Work Phone: [facility] 08-18-2024 14:29-0400 Diastolic blood pressure 72 mm[Hg] Trey Brown DO Work Phone: [facility] 08-18-2024 14:29-0400 Heart rate 86 /min Treyjak Brown DO Work Phone: [facility] 08-18-2024 14:29-0400 Respiratory rate 18 /min Trey Brown DO Work Phone: [facility] 08-18-2024 14:29-0400 SaO2% (BldA) [Mass fraction] 97 % Trey Brown DO Work Phone: [facility] 08-18-2024 14:29-0400 Systolic blood pressure 133 mm[Hg] Treyjak Brown DO Work Phone: [facility] 08-18-2024 11:24-0400 Body temperature 98.4 [degF] Trey Brown DO Work Phone: [facility] 08-18-2024 11:20-0400 Body height 157.48 cm Trey Brown DO Work Phone: [facility] 08-18-2024 11:20-0400 Body weight 80.45 kg Treyjak Brown DO Work Phone: [facility] 08-13-2024 14:42-0400 Body height 157.48 cm Trey Brown DO Work Phone: [facility] 08-13-2024 14:42-0400 Body mass index (BMI) [Ratio] 36.7 kg/m2 Treyjak Brown DO Work Phone: [facility] 08-13-2024 14:42-0400 Body temperature 97.3 [degF] Trey Brown DO Work Phone: [facility] 08-13-2024 14:42-0400 Body weight 91.17 kg Trey Brown DO Work Phone: [facility] 08-13-2024 14:42-0400 Diastolic blood pressure 78 mm[Hg] Trey Brown DO Work Phone: [facility] 08-13-2024 14:42-0400 Heart rate 86 /min Trey Brown DO Work Phone: [facility] 08-13-2024 14:42-0400 Systolic blood pressure 126 mm[Hg] Trey Brown DO Work Phone: [facility] 07-30-2024 14:58-0400 Body height 157.48 cm Trey Brown DO Work Phone: [facility] 07-30-2024 14:58-0400 Body mass index (BMI) [Ratio] 35.6 kg/m2 Trey Brown DO Work Phone: [facility] 07-30-2024 14:58-0400 Body temperature 98.2 [degF] Trey Brown DO Work Phone: [facility] 07-30-2024 14:58-0400 Body weight 88.45 kg Treyjak rBown DO Work Phone: [facility] 07-30-2024 14:58-0400 Diastolic blood pressure 86 mm[Hg] Trey Brown DO Work Phone: [facility] 07-30-2024 14:58-0400 Heart rate 86 /min Trey Brown DO Work Phone: [facility] 07-30-2024 14:58-0400 SaO2% (BldA) [Mass fraction] 96 % Trey Brown DO Work Phone: [facility] 07-30-2024 14:58-0400 Systolic blood pressure 135 mm[Hg] Trey Brown DO Work Phone: [facility] 07-16-2024 14:14-0400 Body height 157.48 cm Trey Brown DO Work Phone: [facility] 07-16-2024 14:14-0400 Body mass index (BMI) [Ratio] 35.6 kg/m2 Trey Brown DO Work Phone: [facility] 07-16-2024 14:14-0400 Body temperature 98.2 [degF] Trey Brown DO Work Phone: [facility] 07-16-2024 14:14-0400 Body weight 88.45 kg Trey Brown DO Work Phone: [facility] 07-16-2024 14:14-0400 Diastolic blood pressure 91 mm[Hg] Trey Brown DO Work Phone: [facility] 07-16-2024 14:14-0400 Heart rate 74 /min Trey Brown DO Work Phone: [facility] 07-16-2024 14:14-0400 Systolic blood pressure 135 mm[Hg] Trey Brown DO Work Phone: [facility] 07-10-2024 16:04-0500 Diastolic blood pressure 80 mm[Hg] Lala Didion COMMUTATOR UNDERCUTTER Work Phone: [facility] 07-10-2024 16:04-0500 Heart rate 90 /min Lala Didion COMMUTATOR UNDERCUTTER Work Phone: [facility] 07-10-2024 16:04-0500 Respiratory rate 16 /min Lala Didion COMMUTATOR UNDERCUTTER Work Phone: [facility] 07-10-2024 16:04-0500 SaO2% (BldA) [Mass fraction] 98 % Lala Didion COMMUTATOR UNDERCUTTER Work Phone: [facility] 07-10-2024 16:04-0500 Systolic blood pressure 100 mm[Hg] Lala Didion COMMUTATOR UNDERCUTTER Work Phone: [phone] [place] [address] 07-05-2024 13:58-0500 Body height 157.48 cm Treyjak Brown DO Work Phone: [facility] 07-05-2024 13:58-0500 Body mass index (BMI) [Ratio] 35.6 kg/m2 Treyjak Brown DO Work Phone: [facility] 07-05-2024 13:58-0500 Body temperature 98.9 [degF] Trey Brown DO Work Phone: [facility] 07-05-2024 13:58-0500 Body weight 88.45 kg Trey Stephanie DO Work Phone: [facility] 07-05-2024 13:58-0500 Diastolic blood pressure 87 mm[Hg] Trey Brown DO Work Phone: [facility] 07-05-2024 13:58-0500 Heart rate 78 /min Trey Brown DO Work Phone: [facility] 07-05-2024 13:58-0500 Respiratory rate 18 /min Trey Stephanie DO Work Phone: [facility] 07-05-2024 13:58-0500 SaO2% (BldA) [Mass fraction] 97 % Trey Stephanie DO Work Phone: [facility] 07-05-2024 13:58-0500 Systolic blood pressure 131 mm[Hg] Trey Brown DO Work Phone: [facility] 06-08-2024 11:04-0500 Body height 157.5 cm Trinity Monet MD Work Phone: [facility] 06-08-2024 11:04-0500 Body mass index (BMI) [Ratio] 36.58 kg/m2 Trinity Monet MD Work Phone: [facility] 06-08-2024 11:04-0500 Body weight 90.72 kg Trinity Monet MD Work Phone: [facility] 06-08-2024 11:04-0500 Diastolic blood pressure 80 mm[Hg] Trinity Monet MD Work Phone: [facility] 06-08-2024 11:04-0500 Heart rate 84 /min Trinity Monet MD Work Phone: [facility] 06-08-2024 11:04-0500 Systolic blood pressure 130 mm[Hg] Trinity Monet MD Work Phone: [facility] 05-23-2024 09:15-0500 Body height 157.48 cm Trey Brown DO Work Phone: [facility] 05-23-2024 09:15-0500 Body mass index (BMI) [Ratio] 35.6 kg/m2 Trey Brown DO Work Phone: [facility] 05-23-2024 09:15-0500 Body temperature 98.5 [degF] Trey Brown DO Work Phone: [facility] 05-23-2024 09:15-0500 Body weight 88.45 kg Trey Brown DO Work Phone: [facility] 05-23-2024 09:15-0500 Diastolic blood pressure 84 mm[Hg] Trey Brown DO Work Phone: [facility] 05-23-2024 09:15-0500 Heart rate 82 /min Trey Brown DO Work Phone: [facility] 05-23-2024 09:15-0500 Respiratory rate 18 /min Trey Brown DO Work Phone: [facility] 05-23-2024 09:15-0500 SaO2% (BldA) [Mass fraction] 96 % Trey Brown DO Work Phone: [facility] 05-23-2024 09:15-0500 Systolic blood pressure 130 mm[Hg] Trey Brown DO Work Phone: [facility] 05-19-2024 13:53-0500 Body height 154.94 cm Trey Brown DO Work Phone: [facility] 05-19-2024 13:53-0500 Body mass index (BMI) [Ratio] 36.8 kg/m2 Trey Brown DO Work Phone: [facility] 05-19-2024 13:53-0500 Body temperature 98.3 [degF] Trey Brown DO Work Phone: [facility] 05-19-2024 13:53-0500 Body weight 88.45 kg Trey Brown DO Work Phone: [facility] 05-19-2024 13:53-0500 Diastolic blood pressure 89 mm[Hg] Trey Brown DO Work Phone: [facility] 05-19-2024 13:53-0500 Heart rate 84 /min Trey Brown DO Work Phone: [facility] 05-19-2024 13:53-0500 SaO2% (BldA) [Mass fraction] 97 % Trey Brown DO Work Phone: [facility] 05-19-2024 13:53-0500 Systolic blood pressure 140 mm[Hg] Trey Brown DO Work Phone: [facility] 05-17-2024 14:46-0500 Body height 157.48 cm Trey Brown DO Work Phone: [facility] 05-17-2024 14:46-0500 Body mass index (BMI) [Ratio] 36 kg/m2 Trey Brown DO Work Phone: [facility] 05-17-2024 14:46-0500 Body temperature 97.3 [degF] Trey Brown DO Work Phone: [facility] 05-17-2024 14:46-0500 Body weight 89.35 kg Trey Brown DO Work Phone: [facility] 05-17-2024 14:46-0500 Diastolic blood pressure 83 mm[Hg] Trey Brown DO Work Phone: [facility] 05-17-2024 14:46-0500 Heart rate 80 /min Trey Brown DO Work Phone: [facility] 05-17-2024 14:46-0500 Respiratory rate 20 /min Trey Brown DO Work Phone: [facility] 05-17-2024 14:46-0500 SaO2% (BldA) [Mass fraction] 96 % Trey Brown DO Work Phone: [facility] 05-17-2024 14:46-0500 Systolic blood pressure 131 mm[Hg] Trey Brown DO Work Phone: [facility] 05-15-2024 13:59-0500 Body temperature 97.7 [degF] Angel Cisse MD Work Phone: [facility] 05-15-2024 13:59-0500 Diastolic blood pressure 71 mm[Hg] Angel Cisse MD Work Phone: [facility] 05-15-2024 13:59-0500 Heart rate 82 /min Angel Cisse MD Work Phone: [facility] 05-15-2024 13:59-0500 SaO2% (BldA) [Mass fraction] 99 % Angel Cisse MD Work Phone: [facility] 05-15-2024 13:59-0500 Systolic blood pressure 123 mm[Hg] Angel Cisse MD Work Phone: [facility] 04-27-2024 12:43-0500 Body height 154.9 cm Linda Valero MD Work Phone: [facility] 04-27-2024 12:43-0500 Body mass index (BMI) [Ratio] 37.7 kg/m2 Linda Valero MD Work Phone: [facility] 04-27-2024 12:43-0500 Body temperature 97.39 [degF] Linda Valero MD Work Phone: [facility] 04-27-2024 12:43-0500 Body weight 90.5 kg Linda Valero MD Work Phone: [facility] 04-27-2024 12:43-0500 Diastolic blood pressure 70 mm[Hg] Linda Valero MD Work Phone: [facility] 04-27-2024 12:43-0500 Heart rate 99 /min Linda Valero MD Work Phone: [facility] 04-27-2024 12:43-0500 Systolic blood pressure 125 mm[Hg] Linda Valero MD Work Phone: [facility] 04-25-2024 11:05-0500 Diastolic blood pressure 86 mm[Hg] HEATHER LIZZIE [facility] 04-25-2024 11:05-0500 Mean blood pressure 100 mm[Hg] HEATHER LIZZIE [facility] 04-25-2024 11:05-0500 Systolic blood pressure 128 mm[Hg] HEATHER LIZZIE Executive [facility] 04-25-2024 11:00-0500 Blood Pressure Location HEATHER LIZZIE [facility] 04-25-2024 11:00-0500 Diastolic blood pressure 99 mm[Hg] HEATHER LIZZIE [facility] 04-25-2024 11:00-0500 Heart rate 82 /min HEATHER LIZZIE [facility] 04-25-2024 11:00-0500 Systolic blood pressure 152 mm[Hg] HEATHER SAMUEL [facility] 04-24-2024 12:32-0500 Body temperature 98 [degF] Trey Brown DO Work Phone: [facility] 04-24-2024 12:32-0500 Diastolic blood pressure 76 mm[Hg] Trey Brown DO Work Phone: [facility] 04-24-2024 12:32-0500 Heart rate 91 /min Trey Brown DO Work Phone: [facility] 04-24-2024 12:32-0500 Respiratory rate 16 /min Trey Brown DO Work Phone: [facility] 04-24-2024 12:32-0500 SaO2% (BldA) [Mass fraction] 95 % Trey Brown DO Work Phone: [facility] 04-24-2024 12:32-0500 Systolic blood pressure 116 mm[Hg] Trey Brown DO Work Phone: [facility] 04-16-2024 10:13-0500 Body height 157.48 cm Trey Brown DO Work Phone: [facility] 04-16-2024 10:13-0500 Body mass index (BMI) [Ratio] 36.3 kg/m2 Trey Brown DO Work Phone: [facility] 04-16-2024 10:13-0500 Body weight 90 kg Trey Brown DO Work Phone: [facility] 04-16-2024 09:33-0500 Body mass index (BMI) [Ratio] 35.25 kg/m2 Trey Brown DO Work Phone: [facility] 04-16-2024 09:33-0500 Body weight 90.27 kg Trey Brown DO Work Phone: [facility] 04-16-2024 09:33-0500 Diastolic blood pressure 80 mm[Hg] Teryjak Brown DO Work Phone: [facility] 04-16-2024 09:33-0500 Heart rate 93 /min Treyjak Brown DO Work Phone: [facility] 04-16-2024 09:33-0500 SaO2% (BldA) [Mass fraction] 97 % Treyjak Brown DO Work Phone: [facility] 04-16-2024 09:33-0500 Systolic blood pressure 100 mm[Hg] Trey Brown DO Work Phone: [facility] 04-06-2024 11:28-0500 Body height 157.48 cm Trey Stephanie DO Work Phone: [facility] 04-06-2024 11:28-0500 Body mass index (BMI) [Ratio] 36.6 kg/m2 Treyjak Brown DO Work Phone: [facility] 04-06-2024 11:28-0500 Body temperature 98 [degF] Trey Stephanie DO Work Phone: [facility] 04-06-2024 11:28-0500 Body weight 90.71 kg Trey Brown DO Work Phone: [facility] 04-06-2024 11:28-0500 Diastolic blood pressure 84 mm[Hg] Trey Brown DO Work Phone: [facility] 04-06-2024 11:28-0500 Heart rate 55 /min Trey Stephanie DO Work Phone: [facility] 04-06-2024 11:28-0500 SaO2% (BldA) [Mass fraction] 97 % Treyjak Brown DO Work Phone: [facility] 04-06-2024 11:28-0500 Systolic blood pressure 127 mm[Hg] Trey Brown DO Work Phone: [facility] 03-29-2024 14:05-0500 Diastolic blood pressure 80 mm[Hg] Naty Booker Jr., DO Work Phone: [facility] 03-29-2024 14:05-0500 Heart rate 80 /min Naty Booker Jr., DO Work Phone: [facility] 03-29-2024 14:05-0500 Respiratory rate 18 /min Naty Booker Jr., DO Work Phone: [facility] 03-29-2024 14:05-0500 SaO2% (BldA) [Mass fraction] 98 % Naty Booker Jr., DO Work Phone: [facility] 03-29-2024 14:05-0500 Systolic blood pressure 148 mm[Hg] Naty Booker Jr., DO Work Phone: [facility] 03-29-2024 12:28-0500 Body height 154.9 cm Naty Booker Jr., DO Work Phone: [facility] 03-29-2024 12:28-0500 Body mass index (BMI) [Ratio] 37.79 kg/m2 Naty Booker Jr., DO Work Phone: [facility] 03-29-2024 12:28-0500 Body weight 90.72 kg Naty Booker Jr., DO Work Phone: [facility] 03-08-2024 15:07-0400 Diastolic blood pressure 70 mm[Hg] Rachael Banegas COMMUTATOR UNDERCUTTER Work Phone: [facility] 03-08-2024 15:07-0400 Heart rate 91 /min Rachael Banegas COMMUTATOR UNDERCUTTER Work Phone: [facility] 03-08-2024 15:07-0400 SaO2% (BldA) [Mass fraction] 95 % Rachael Banegas COMMUTATOR UNDERCUTTER Work Phone: [facility] 03-08-2024 15:07-0400 Systolic blood pressure 108 mm[Hg] Rachael Banegas COMMUTATOR UNDERCUTTER Work Phone: [facility] 03-05-2024 14:15-0400 Body mass index (BMI) [Ratio] 35.61 kg/m2 Trey Brown DO Work Phone: [facility] 03-05-2024 14:15-0400 Body weight 91.17 kg Trey Brown DO Work Phone: [facility] 03-05-2024 14:15-0400 Diastolic blood pressure 78 mm[Hg] Treyjak Brown DO Work Phone: [facility] 03-05-2024 14:15-0400 Heart rate 86 /min Treyjak Brown DO Work Phone: [facility] 03-05-2024 14:15-0400 SaO2% (BldA) [Mass fraction] 94 % Trey Brown DO Work Phone: [facility] 03-05-2024 14:15-0400 Systolic blood pressure 110 mm[Hg] Trey Brown DO Work Phone: [facility] 01-25-2024 09:42-0400 Blood Pressure Location Seamus DYER [facility] 01-25-2024 09:42-0400 Diastolic blood pressure 77 mm[Hg] Seamus DYER [facility] 01-25-2024 09:42-0400 Heart rate 62 /min Seamus DYER [facility] 01-25-2024 09:42-0400 Respiratory rate 16 /min Seamus DYER [facility] 01-25-2024 09:42-0400 Systolic blood pressure 122 mm[Hg] Seamus DYER [facility] 01-23-2024 02:12-0400 Diastolic blood pressure 78 mm[Hg] DO Trey Brown Work Phone: [facility] 01-23-2024 02:12-0400 Heart rate 58 /min DO Trey Brown Work Phone: [facility] 01-23-2024 02:12-0400 Respiratory rate 20 /min DO Tery Brown Work Phone: [facility] 01-23-2024 02:12-0400 SaO2% (BldA) [Mass fraction] 98 % DO Trey Brown Work Phone: [facility] 01-23-2024 02:12-0400 Systolic blood pressure 145 mm[Hg] DO Trey Brown Work Phone: [facility] 01-22-2024 23:40-0400 Body height 157.48 cm DO Trey Brown Work Phone: [facility] 01-22-2024 23:40-0400 Body temperature 98.2 [degF] DO Trey Brown Work Phone: [facility] 01-22-2024 23:40-0400 Body weight 89.05 kg DO Trey Brown Work Phone: [facility] 12-09-2023 08:23-0400 Body height 157.5 cm Lala Carbajal MD, PhD Work Phone: [facility] 12-09-2023 08:23-0400 Body mass index (BMI) [Ratio] 37.14 kg/m2 Lala Carbajal MD, PhD Work Phone: [facility] 12-09-2023 08:23-0400 Body weight 92.1 kg Lala Carbajal MD, PhD Work Phone: [facility] 12-09-2023 08:23-0400 Diastolic blood pressure 89 mm[Hg] Lala Carbajal MD, PhD Work Phone: [facility] 12-09-2023 08:23-0400 Heart rate 74 /min Lala Carbajal MD, PhD Work Phone: [facility] 12-09-2023 08:23-0400 SaO2% (BldA) [Mass fraction] 98 % Lala Carbajal MD, PhD Work Phone: [facility] 12-09-2023 08:23-0400 Systolic blood pressure 131 mm[Hg] Lala Carbajal MD, PhD Work Phone: [facility] 12-08-2023 15:08-0400 Body mass index (BMI) [Ratio] 37.58 kg/m2 Annemarie Judd MD Work Phone: [facility] 12-08-2023 15:08-0400 Body temperature 97.3 [degF] Annemarie Judd MD Work Phone: [facility] 12-08-2023 15:08-0400 Body weight 93.2 kg Annemarie Judd MD Work Phone: [facility] 12-08-2023 15:08-0400 Diastolic blood pressure 77 mm[Hg] Annemarie Judd MD Work Phone: [facility] 12-08-2023 15:08-0400 Heart rate 85 /min Annemarie Judd MD Work Phone: [facility] 12-08-2023 15:08-0400 Respiratory rate 16 /min Annemarie Judd MD Work Phone: [facility] 12-08-2023 15:08-0400 SaO2% (BldA) [Mass fraction] 96 % Annemarie Judd MD Work Phone: [facility] 12-08-2023 15:08-0400 Systolic blood pressure 119 mm[Hg] Annemarie Judd MD Work Phone: [facility] 12-07-2023 15:33-0400 Body temperature 98.7 [degF] DO Trey Brown Work Phone: [facility] 12-07-2023 15:33-0400 Diastolic blood pressure 71 mm[Hg] DO Trey Stephanie Work Phone: [facility] 12-07-2023 15:33-0400 Heart rate 59 /min DO Trey Stephanie Work Phone: [facility] 12-07-2023 15:33-0400 Respiratory rate 16 /min DO Trey Brown Work Phone: [facility] 12-07-2023 15:33-0400 SaO2% (BldA) [Mass fraction] 100 % DO Trey Brown Work Phone: [facility] 12-07-2023 15:33-0400 Systolic blood pressure 130 mm[Hg] DO Trey Brown Work Phone: [facility] 12-07-2023 13:46-0400 Body height 157.48 cm DO Trey Brown Work Phone: [facility] 12-07-2023 13:46-0400 Body weight 92.5 kg DO Trey Brown Work Phone: [facility] 09-22-2023 14:17-0400 Body height 154.94 cm DO Trey Brown Work Phone: [facility] 09-22-2023 14:17-0400 Body mass index (BMI) [Ratio] 37 kg/m2 DO Trey Stephanie Work Phone: [facility] 09-22-2023 14:17-0400 Body temperature 98.3 [degF] DO Trey Stephanie Work Phone: [facility] 09-22-2023 14:17-0400 Body weight 88.9 kg DO Trey Stephanie Work Phone: [facility] 09-22-2023 14:17-0400 Diastolic blood pressure 86 mm[Hg] DO Trey Stephanie Work Phone: [facility] 09-22-2023 14:17-0400 Heart rate 92 /min DO Trey Brown Work Phone: [facility] 09-22-2023 14:17-0400 Respiratory rate 20 /min DO Trey Brown Work Phone: [facility] 09-22-2023 14:17-0400 SaO2% (BldA) [Mass fraction] 98 % DO Trey Brown Work Phone: [facility] 09-22-2023 14:17-0400 Systolic blood pressure 124 mm[Hg] DO Trey Brown Work Phone: [facility] 09-20-2023 11:05-0400 Body temperature 98.2 [degF] DO Trey Brown Work Phone: [facility] 09-20-2023 11:05-0400 Body weight 89.81 kg DO Trey Brown Work Phone: [facility] 09-20-2023 11:05-0400 Diastolic blood pressure 82 mm[Hg] DO Trey Brown Work Phone: [facility] 09-20-2023 11:05-0400 Respiratory rate 20 /min DO Trey Brown Work Phone: [facility] 09-20-2023 11:05-0400 SaO2% (BldA) [Mass fraction] 99 % DO Trey Brown Work Phone: [facility] 09-20-2023 11:05-0400 Systolic blood pressure 122 mm[Hg] DO Trey Brown Work Phone: [facility] 09-02-2023 16:54-0400 Body height 157.48 cm DO Trey Brown Work Phone: [facility] 09-02-2023 16:54-0400 Body mass index (BMI) [Ratio] 36.2 kg/m2 DO Trey Brown Work Phone: [facility] 09-02-2023 16:54-0400 Body temperature 98.4 [degF] DO Trey Brown Work Phone: [facility] 09-02-2023 16:54-0400 Body weight 89.81 kg DO Trey Brown Work Phone: [facility] 09-02-2023 16:54-0400 Diastolic blood pressure 79 mm[Hg] DO Trey Brown Work Phone: [facility] 09-02-2023 16:54-0400 Heart rate 72 /min DO Trey Brown Work Phone: [facility] 09-02-2023 16:54-0400 SaO2% (BldA) [Mass fraction] 95 % DO Trey Brown Work Phone: [facility] 09-02-2023 16:54-0400 Systolic blood pressure 123 mm[Hg] DO Trey Brown Work Phone: [facility] 08-19-2023 10:36-0400 Body height 157.5 cm Sandra Gage MD Work Phone: [facility] 08-19-2023 10:36-0400 Body temperature 98.8 [degF] Sandra Gage MD Work Phone: [facility] 08-19-2023 10:36-0400 Body weight 91.44 kg Sandra Gage MD Work Phone: [facility] 08-19-2023 10:36-0400 Diastolic blood pressure 70 mm[Hg] Sandra Gage MD Work Phone: [facility] 08-19-2023 10:36-0400 Heart rate 67 /min Sandra Gage MD Work Phone: [facility] 08-19-2023 10:36-0400 SaO2% (BldA) [Mass fraction] 97 % Sandra Gage MD Work Phone: [facility] 08-19-2023 10:36-0400 Systolic blood pressure 118 mm[Hg] Sandra Gage MD Work Phone: [facility] 07-23-2023 09:04-0400 Body height 157.48 cm DO Trey Stephanie Work Phone: [facility] 07-23-2023 09:04-0400 Body mass index (BMI) [Ratio] 36.6 kg/m2 DO Trey Stephanie Work Phone: [facility] 07-23-2023 09:04-0400 Body temperature 98.2 [degF] DO Trey Stephanie Work Phone: [facility] 07-23-2023 09:04-0400 Body weight 90.71 kg DO Trey Stephanie Work Phone: [facility] 07-23-2023 09:04-0400 Diastolic blood pressure 80 mm[Hg] DO Trey Stephanie Work Phone: [facility] 07-23-2023 09:04-0400 Heart rate 68 /min DO Trey Stephanie Work Phone: [facility] 07-23-2023 09:04-0400 Respiratory rate 20 /min DO Trey Stephanie Work Phone: [facility] 07-23-2023 09:04-0400 Systolic blood pressure 115 mm[Hg] DO Trey Stephanie Work Phone: [facility] 07-16-2023 12:18-0500 Body height 157.48 cm DO Trey Stephanie Work Phone: [facility] 07-16-2023 12:18-0500 Body mass index (BMI) [Ratio] 36.6 kg/m2 DO Trey Stephanie Work Phone: [facility] 07-16-2023 12:18-0500 Body temperature 98.3 [degF] DO Trey Brown Work Phone: [facility] 07-16-2023 12:18-0500 Body weight 90.71 kg DO Trey Brown Work Phone: [facility] 07-16-2023 12:18-0500 Diastolic blood pressure 80 mm[Hg] DO Trey Brown Work Phone: [facility] 07-16-2023 12:18-0500 Heart rate 83 /min DO Trey Brown Work Phone: [facility] 07-16-2023 12:18-0500 SaO2% (BldA) [Mass fraction] 97 % DO Trey Brown Work Phone: [facility] 07-16-2023 12:18-0500 Systolic blood pressure 130 mm[Hg] DO Trey Brown Work Phone: [facility] 06-17-2023 09:15-0500 Body height 157.48 cm Renu Azra Other [employer] Other 06-17-2023 09:15-0500 Body mass index (BMI) [Ratio] 36.03 kg/m2 Renu Azra Other [employer] Other 06-17-2023 09:15-0500 Body weight 89.36 kg Renu Azra Other [employer] Other 06-17-2023 09:15-0500 Diastolic blood pressure 74 mm[Hg] Renu Azra Other [employer] Other 06-17-2023 09:15-0500 SaO2% (BldA) [Mass fraction] 99 % Renu Azra Other [employer] Other 02-09-2024 09:15-0500 Systolic blood pressure 116 mm[Hg] Renu Oquendo Other [facility] [employer] Other 06-13-2023 09:23-0500 Body mass index (BMI) [Ratio] 34.19 kg/m2 Jose Daniel Vero COMMUTATOR UNDERCUTTER Work Phone: [facility] 06-13-2023 09:23-0500 Body weight 87.54 kg Jose Daniel Pham COMMUTATOR UNDERCUTTER Work Phone: [facility] 06-13-2023 09:23-0500 Diastolic blood pressure 80 mm[Hg] Jose Daniel Pham COMMUTATOR UNDERCUTTER Work Phone: [facility] 06-13-2023 09:23-0500 Heart rate 77 /min Jose Daniel Pham COMMUTATOR UNDERCUTTER Work Phone: [facility] 06-13-2023 09:23-0500 SaO2% (BldA) [Mass fraction] 96 % Jose Daniel Pham COMMUTATOR UNDERCUTTER Work Phone: [facility] 06-13-2023 09:23-0500 Systolic blood pressure 110 mm[Hg] Jose Daniel Pham COMMUTATOR UNDERCUTTER Work Phone: [facility] 06-09-2023 15:00-0500 Diastolic blood pressure 67 mm[Hg] DO Trey Brown Work Phone: [facility] 06-09-2023 15:00-0500 Heart rate 64 /min DO Trey Brown Work Phone: [facility] 06-09-2023 15:00-0500 Respiratory rate 18 /min DO Trey Brown Work Phone: [facility] 06-09-2023 15:00-0500 SaO2% (BldA) [Mass fraction] 97 % DO Trey Brown Work Phone: [facility] 06-09-2023 15:00-0500 Systolic blood pressure 146 mm[Hg] DO Trey Brown Work Phone: [facility] 06-09-2023 11:03-0500 Body height 154.94 cm DO Trey Brown Work Phone: [facility] 06-09-2023 11:03-0500 Body temperature 97.7 [degF] DO Trey Stephanie Work Phone: [facility] 06-09-2023 11:03-0500 Body weight 91.6 kg DO Trey Brown Work Phone: [facility] 04-27-2023 18:02-0500 Diastolic blood pressure 80 mm[Hg] DO Trey Brown Work Phone: [facility] 04-27-2023 18:02-0500 Heart rate 73 /min DO Trey Brown Work Phone: [facility] 04-27-2023 18:02-0500 Respiratory rate 18 /min DO Trey Brown Work Phone: [facility] 04-27-2023 18:02-0500 SaO2% (BldA) [Mass fraction] 98 % DO Trey Brown Work Phone: [facility] 04-27-2023 18:02-0500 Systolic blood pressure 134 mm[Hg] DO Trey Brown Work Phone: [facility] 04-27-2023 15:13-0500 Body height 157.48 cm DO Trey Brown Work Phone: [facility] 04-27-2023 15:13-0500 Body temperature 97.6 [degF] DO Trey Brown Work Phone: [facility] 04-27-2023 15:13-0500 Body weight 88.35 kg DO Trey Brown Work Phone: [facility] 03-14-2023 13:07-0500 Body height 154.9 cm Annemarie Judd MD Work Phone: [facility] 03-14-2023 13:07-0500 Body temperature 98.1 [degF] Annemarie Judd MD Work Phone: [facility] 03-14-2023 13:07-0500 Body weight 85.28 kg Annemarie Judd MD Work Phone: [facility] 03-14-2023 13:07-0500 Diastolic blood pressure 74 mm[Hg] Annemarie Judd MD Work Phone: [facility] 03-14-2023 13:07-0500 Heart rate 87 /min Annemarie Judd MD Work Phone: [facility] 03-14-2023 13:07-0500 Respiratory rate 16 /min Annemarie Judd MD Work Phone: [facility] 03-14-2023 13:07-0500 SaO2% (BldA) [Mass fraction] 97 % Annemarie Judd MD Work Phone: [facility] 03-14-2023 13:07-0500 Systolic blood pressure 112 mm[Hg] Annemarie Judd MD Work Phone: [facility] 03-09-2023 14:15-0400 Body height 157.48 cm Renu Azra Other [employer] Other 03-09-2023 14:15-0400 Body mass index (BMI) [Ratio] 34.38 kg/m2 Renu Azra Other [employer] Other 03-09-2023 14:15-0400 Body weight 85.28 kg Renu Azra Other [employer] Other 03-09-2023 14:15-0400 Diastolic blood pressure 74 mm[Hg] Renu Azra Other [employer] Other 03-09-2023 14:15-0400 SaO2% (BldA) [Mass fraction] 98 % Renu Azra Other [facility] [employer] Other 03-09-2023 14:15-0400 Systolic blood pressure 117 mm[Hg] Renu Oquendo Other [facility] [employer] Other 01-27-2023 08:23-0400 Body height 157.48 cm Trey Brown Work Phone: [facility] DO Work Phone: 01-27-2023 08:23-0400 Body mass index (BMI) [Ratio] 32.56 kg/m2 Trey Brown Work Phone: [facility] [facility] DO Work Phone: 01-27-2023 08:23-0400 Body surface area Derived from formula 1.82 m2 Trey Brown Work Phone: [facility] [facility] DO Work Phone: 01-27-2023 08:23-0400 Body temperature 98 [degF] Trey Brown Work Phone: [facility] DO Work Phone: 01-27-2023 08:23-0400 Body weight 80.74 kg Trey Brown Work Phone: [facility] [facility] DO Work Phone: 01-27-2023 08:23-0400 Diastolic blood pressure 82 mm[Hg] Trey Brown Work Phone: [facility] DO Work Phone: 01-27-2023 08:23-0400 Heart rate 76 /min Trey Brown Work Phone: [facility] DO Work Phone: 01-27-2023 08:23-0400 Systolic blood pressure 126 mm[Hg] Trey Brown Work Phone: [facility] DO Work Phone: 12-29-2022 10:50-0400 Diastolic blood pressure 73 mm[Hg] Naty Booker Jr., DO Work Phone: [facility] 12-29-2022 10:50-0400 Heart rate 74 /min Naty Booker Jr., DO Work Phone: [facility] 12-29-2022 10:50-0400 Respiratory rate 12 /min Naty Booker Jr., DO Work Phone: [facility] 12-29-2022 10:50-0400 SaO2% (BldA) [Mass fraction] 100 % Naty Booker Jr., DO Work Phone: [facility] 12-29-2022 10:50-0400 Systolic blood pressure 137 mm[Hg] Naty Booker Jr., DO Work Phone: [facility] 12-29-2022 10:15-0400 Body temperature 97.2 [degF] Naty Booker Jr., DO Work Phone: [facility] 12-09-2022 11:30-0400 Body height 157.48 cm Trey Brown Work Phone: [facility] [address] DO Work Phone: 12-09-2022 11:30-0400 Body mass index (BMI) [Ratio] 32.01 kg/m2 Trey Brown Work Phone: [facility] DO Work Phone: 12-09-2022 11:30-0400 Body surface area Derived from formula 1.81 m2 Trey Brown Work Phone: [facility] [facility] DO Work Phone: 12-09-2022 11:30-0400 Body weight 79.38 kg Trey Brown Work Phone: [facility] [facility] DO Work Phone: 12-09-2022 11:30-0400 Diastolic blood pressure 64 mm[Hg] Trey Brown Work Phone: [facility] [facility] DO Work Phone: 12-09-2022 11:30-0400 Heart rate 72 /min Treyjak Brown Work Phone: [facility] DO Work Phone: 12-09-2022 11:30-0400 Systolic blood pressure 102 mm[Hg] Trey Gamaman Work Phone: [facility] DO Work Phone: 11-25-2022 22:30-0400 Body temperature 97.9 [degF] DO Trey Brown Work Phone: [facility] 11-25-2022 22:30-0400 Diastolic blood pressure 78 mm[Hg] DO Trey Brown Work Phone: [facility] 11-25-2022 22:30-0400 Heart rate 84 /min DO Trey Brown Work Phone: [facility] 11-25-2022 22:30-0400 Respiratory rate 16 /min DO Trey Brown Work Phone: [facility] 11-25-2022 22:30-0400 SaO2% (BldA) [Mass fraction] 98 % DO Trey Brown Work Phone: [facility] 11-25-2022 22:30-0400 Systolic blood pressure 133 mm[Hg] DO Trey Brown Work Phone: [facility] 11-25-2022 21:06-0400 Body height 154.94 cm DO Treyjak Brown Work Phone: [place] [address]-20-2023 21:06-0400 Body weight 76.2 kg DO Trey Brown Work Phone: [facility] 09-14-2022 18:15-0400 Body height 157.48 cm Hernando Hylton Other [employer] Other 09-14-2022 18:15-0400 Body mass index (BMI) [Ratio] 34.75 kg/m2 Hernando Hylton Other [employer] Other 09-14-2022 18:15-0400 Body temperature 98.6 [degF] Hernando Hylton Other [employer] Other 09-14-2022 18:15-0400 Body weight 86.18 kg Hernando Hylton Other [employer] Other 09-14-2022 18:15-0400 Diastolic blood pressure 87 mm[Hg] Hernando Hylton Other [employer] Other 09-14-2022 18:15-0400 Respiratory rate 18 /min Hernando Hylton Other [employer] Other 09-14-2022 18:15-0400 SaO2% (BldA) [Mass fraction] 98 % Hernando Hylton Other [employer] Other 09-14-2022 18:15-0400 Systolic blood pressure 127 mm[Hg] Hernando Hylton Other [employer] Other 07-30-2022 14:03-0400 Diastolic blood pressure 61 mm[Hg] Nayt Booker Jr., DO Work Phone: [facility] 07-30-2022 14:03-0400 Respiratory rate 16 /min Naty Booker Jr., DO Work Phone: [facility] 07-30-2022 14:03-0400 SaO2% (BldA) [Mass fraction] 99 % Naty Demiyanelis Eugene, DO Work Phone: [facility] 07-30-2022 14:03-0400 Systolic blood pressure 115 mm[Hg] Naty Demiyanelis Eugene, DO Work Phone: [facility] 07-30-2022 13:54-0400 Heart rate 59 /min Naty Demiyanelis Eugene, DO Work Phone: [facility] 07-30-2022 12:48-0400 Body height 154.9 cm Naty Demiyanelis Eugene, DO Work Phone: [facility] 07-30-2022 12:48-0400 Body mass index (BMI) [Ratio] 35.9 kg/m2 Naty Booker Jr., DO Work Phone: [facility] 07-30-2022 12:48-0400 Body weight 86.18 kg Naty Demiyanelis Eugene, DO Work Phone: [facility] 07-16-2022 14:28-0500 Body temperature 97.59 [degF] Annemarie Judd MD Work Phone: [facility] 07-16-2022 14:28-0500 Body weight 86.18 kg Annemarie Judd MD Work Phone: [facility] 07-16-2022 14:28-0500 Diastolic blood pressure 66 mm[Hg] Annemarie Judd MD Work Phone: [facility] 07-16-2022 14:28-0500 Heart rate 83 /min Annemarie Judd MD Work Phone: [facility] 07-16-2022 14:28-0500 Respiratory rate 16 /min Annemarie Judd MD Work Phone: [facility] 07-16-2022 14:28-0500 SaO2% (BldA) [Mass fraction] 98 % Annemarie Judd MD Work Phone: [facility] 07-16-2022 14:28-0500 Systolic blood pressure 116 mm[Hg] Annemarie Judd MD Work Phone: [facility] 06-08-2022 14:53-0500 Body height 157.48 cm Trey Brown Work Phone: [facility] DO Work Phone: 06-08-2022 14:53-0500 Body mass index (BMI) [Ratio] 35.12 kg/m2 Trey Brown Work Phone: [facility] DO Work Phone: 06-08-2022 14:53-0500 Body surface area Derived from formula 1.88 m2 Trey Brown Work Phone: [facility] DO Work Phone: 06-08-2022 14:53-0500 Body weight 87.09 kg Trey Brown Work Phone: [facility] DO Work Phone: 06-08-2022 14:53-0500 Diastolic blood pressure 72 mm[Hg] Trey Brown Work Phone: [facility] DO Work Phone: 06-08-2022 14:53-0500 Heart rate 71 /min Trey Brown Work Phone: [facility] DO Work Phone: 06-08-2022 14:53-0500 Systolic blood pressure 122 mm[Hg] Trey Brown Work Phone: [facility] DO Work Phone: 04-08-2022 19:15-0500 Body height 157.48 cm Hernando Hylton Other [employer] Other 04-08-2022 19:15-0500 Body mass index (BMI) [Ratio] 35.48 kg/m2 Hernando Hylton Other [employer] Other 04-08-2022 19:15-0500 Body temperature 98.5 [degF] Hernando Warner Other [employer] Other 04-08-2022 19:15-0500 Body weight 88 kg Hernando Hylton Other [employer] Other 04-08-2022 19:15-0500 Respiratory rate 18 /min Hernando Hylton Other [employer] Other 04-08-2022 19:15-0500 SaO2% (BldA) [Mass fraction] 98 % Hernando Hylton Other [employer] Other 03-12-2022 14:08-0400 Body height 154.9 cm Naty Booker Jr., DO Work Phone: [facility] 03-12-2022 14:08-0400 Body weight 85.73 kg Naty Booker Jr., DO Work Phone: [facility] 03-12-2022 14:08-0400 Diastolic blood pressure 78 mm[Hg] Naty Booker Jr., DO Work Phone: [facility] 03-12-2022 14:08-0400 Heart rate 88 /min Naty Booker Jr., DO Work Phone: [facility] 03-12-2022 14:08-0400 Respiratory rate 17 /min Naty Booker Jr., DO Work Phone: [facility] 03-12-2022 14:08-0400 SaO2% (BldA) [Mass fraction] 98 % Naty Booker Jr., DO Work Phone: [facility] 03-12-2022 14:08-0400 Systolic blood pressure 125 mm[Hg] Naty Booker Jr., DO Work Phone: [facility] 03-10-2022 15:45-0400 Body height 157.48 cm Renu Azra Other [employer] Other 03-10-2022 15:45-0400 Body mass index (BMI) [Ratio] 35.48 kg/m2 Renu Azra Other [employer] Other 03-10-2022 15:45-0400 Body temperature 97.5 [degF] Renu Azra Other [employer] Other 03-10-2022 15:45-0400 Body weight 88 kg Renu Azra Other [employer] Other 03-10-2022 15:45-0400 Diastolic blood pressure 90 mm[Hg] Renu Azra Other [employer] Other 03-10-2022 15:45-0400 SaO2% (BldA) [Mass fraction] 98 % Renu Azra Other [employer] Other 03-10-2022 15:45-0400 Systolic blood pressure 126 mm[Hg] Renu Azra Other [employer] Other 02-25-2022 13:47-0400 Diastolic blood pressure 86 mm[Hg] Naty Booker Jr., DO Work Phone: [facility] 02-25-2022 13:47-0400 Heart rate 62 /min Naty Booker Jr., DO Work Phone: [facility] 02-25-2022 13:47-0400 Respiratory rate 16 /min Naty Booker Jr., DO Work Phone: [facility] 02-25-2022 13:47-0400 SaO2% (BldA) [Mass fraction] 98 % Naty Booker Jr., DO Work Phone: [facility] 02-25-2022 13:47-0400 Systolic blood pressure 140 mm[Hg] Naty Booker Jr., DO Work Phone: [facility] 02-25-2022 13:15-0400 Body temperature 98.01 [degF] Naty Booker Jr., DO Work Phone: [facility] 02-23-2022 10:58-0400 Body height 154.9 cm Naty Booker Jr., DO Work Phone: [facility] 02-23-2022 10:58-0400 Body weight 88.45 kg Naty Booker Jr., DO Work Phone: [facility] 02-23-2022 10:58-0400 Diastolic blood pressure 83 mm[Hg] Naty Booker Jr., DO Work Phone: [facility] 02-23-2022 10:58-0400 Heart rate 66 /min Naty Booker Jr., DO Work Phone: [facility] 02-23-2022 10:58-0400 SaO2% (BldA) [Mass fraction] 95 % Naty Booker Jr., DO Work Phone: [facility] 02-23-2022 10:58-0400 Systolic blood pressure 121 mm[Hg] Naty Booker Jr., DO Work Phone: [facility] 02-22-2022 08:24-0400 Body temperature 98.7 [degF] DO Trey Brown Work Phone: [facility] 02-22-2022 07:19-0400 Diastolic blood pressure 70 mm[Hg] DO Trey Brown Work Phone: [facility] 02-22-2022 07:19-0400 Heart rate 70 /min DO Trey Brown Work Phone: [facility] 02-22-2022 07:19-0400 Respiratory rate 20 /min DO Trey Brown Work Phone: [facility] 02-22-2022 07:19-0400 SaO2% (BldA) [Mass fraction] 98 % DO Trey Brown Work Phone: [facility] 02-22-2022 07:19-0400 Systolic blood pressure 130 mm[Hg] DO Trey Brown Work Phone: [facility] 02-22-2022 01:38-0400 Body height 154.94 cm DO Trey Brown Work Phone: [facility] 02-22-2022 01:38-0400 Body weight 83.91 kg DO Trey Brown Work Phone: [facility] 02-11-2022 14:10-0400 Body height 154.9 cm Annemarie Judd MD Work Phone: [facility] 02-11-2022 14:10-0400 Body temperature 97.5 [degF] Annemarie Judd MD Work Phone: [facility] 02-11-2022 14:10-0400 Body weight 88.81 kg Annemarie Judd MD Work Phone: [facility] 02-11-2022 14:10-0400 Diastolic blood pressure 78 mm[Hg] Annemarie Judd MD Work Phone: [facility] 02-11-2022 14:10-0400 Heart rate 90 /min Annemarie Judd MD Work Phone: [facility] 02-11-2022 14:10-0400 Respiratory rate 16 /min Annemarie Judd MD Work Phone: [facility] 02-11-2022 14:10-0400 SaO2% (BldA) [Mass fraction] 96 % Annemarie Judd MD Work Phone: [facility] 02-11-2022 14:10-0400 Systolic blood pressure 123 mm[Hg] Annemarie Judd MD Work Phone: [facility] 12-31-2021 09:07-0400 Body height 157.48 cm Trey Brown Work Phone: [facility] DO Work Phone: 12-31-2021 09:07-0400 Body mass index (BMI) [Ratio] 33.84 kg/m2 Trey Brown Work Phone: [facility] DO Work Phone: 12-31-2021 09:07-0400 Body surface area Derived from formula 1.85 m2 Trey Brown Work Phone: [facility] DO Work Phone: 12-31-2021 09:07-0400 Body weight 83.92 kg Trey Brown Work Phone: [facility] DO Work Phone: 12-31-2021 09:07-0400 Diastolic blood pressure 76 mm[Hg] Trey Brown Work Phone: [facility] DO Work Phone: 12-31-2021 09:07-0400 Heart rate 72 /min Trey Brown Work Phone: [facility] DO Work Phone: 12-31-2021 09:07-0400 Systolic blood pressure 110 mm[Hg] Trey Brown Work Phone: [facility] DO Work Phone: 12-09-2021 14:28-0400 Diastolic blood pressure 82 mm[Hg] DO Trey Brown Work Phone: [facility] 12-09-2021 14:28-0400 Heart rate 75 /min DO Trey Brown Work Phone: [facility] 12-09-2021 14:28-0400 Respiratory rate 18 /min DO Trey Brown Work Phone: [facility] 12-09-2021 14:28-0400 SaO2% (BldA) [Mass fraction] 100 % DO Trey Brown Work Phone: [facility] 12-09-2021 14:28-0400 Systolic blood pressure 126 mm[Hg] DO Trey Brown Work Phone: [facility] 12-09-2021 12:11-0400 Body temperature 97.9 [degF] DO Trey Brown Work Phone: [facility] 12-09-2021 12:08-0400 Body height 157.48 cm DO Trey Brown Work Phone: [facility] 12-09-2021 12:08-0400 Body weight 83.91 kg DO Trey Brown Work Phone: [facility] 11-30-2021 16:30-0400 Body height 157.48 cm Bharti Humphrey Other [employer] Other 11-30-2021 16:30-0400 Body mass index (BMI) [Ratio] 34.38 kg/m2 Bharti Humphrey Other [employer] Other 11-30-2021 16:30-0400 Body temperature 97.1 [degF] Bharti Humphrey Other [employer] Other 11-30-2021 16:30-0400 Body weight 85.28 kg Bharti Humphrey Other [employer] Other 11-30-2021 16:30-0400 Diastolic blood pressure 89 mm[Hg] Bharti Humphrey Other [employer] Other 11-30-2021 16:30-0400 SaO2% (BldA) [Mass fraction] 97 % Bharti Humphrey Other [employer] Other 11-30-2021 16:30-0400 Systolic blood pressure 137 mm[Hg] Bharti Humphrey Other [employer] Other 11-28-2021 15:51-0400 Body height 158.75 cm DO Trey Brown Work Phone: [facility] 11-28-2021 15:51-0400 Body temperature 97.6 [degF] DO Trey Brown Work Phone: [facility] 11-28-2021 15:51-0400 Body weight 85 kg DO Trey Stephanie Work Phone: [facility] 11-28-2021 15:51-0400 Diastolic blood pressure 88 mm[Hg] DO Trey Stephanie Work Phone: [facility] 11-28-2021 15:51-0400 Heart rate 76 /min DO Trey Stephanie Work Phone: [facility] 11-28-2021 15:51-0400 Respiratory rate 20 /min DO Trey Stephanie Work Phone: [facility] 11-28-2021 15:51-0400 SaO2% (BldA) [Mass fraction] 98 % DO Trey Stephanie Work Phone: [facility] 11-28-2021 15:51-0400 Systolic blood pressure 134 mm[Hg] DO Trey Gamaman Work Phone: [facility] 10-20-2021 10:42-0400 Body height 157.48 cm Trey Brown Work Phone: [facility] DO Work Phone: 10-20-2021 10:42-0400 Body mass index (BMI) [Ratio] 34.02 kg/m2 Trey Brown Work Phone: [facility] DO Work Phone: 10-20-2021 10:42-0400 Body surface area Derived from formula 1.85 m2 Trey Brown Work Phone: [facility] DO Work Phone: 10-20-2021 10:42-0400 Body weight 84.37 kg Trey Gamaman Work Phone: [facility] DO Work Phone: 10-20-2021 10:42-0400 Diastolic blood pressure 72 mm[Hg] Trey Gamaman Work Phone: [facility] DO Work Phone: 10-20-2021 10:42-0400 Heart rate 72 /min Trey Brown Work Phone: [facility] DO Work Phone: 10-20-2021 10:42-0400 Systolic blood pressure 116 mm[Hg] Trey Brown Work Phone: [facility] DO Work Phone: 06-23-2021 15:54-0500 Body height 157.48 cm Trey Brown Work Phone: [facility] DO Work Phone: 06-23-2021 15:54-0500 Body mass index (BMI) [Ratio] 33.14 kg/m2 Trey Brown Work Phone: [facility] DO Work Phone: 06-23-2021 15:54-0500 Body surface area Derived from formula 1.83 m2 Trey Brown Work Phone: [facility] DO Work Phone: 06-23-2021 15:54-0500 Body weight 82.19 kg Trey Gamaman Work Phone: [facility] DO Work Phone: 06-23-2021 15:54-0500 Diastolic blood pressure 82 mm[Hg] Trey Brown Work Phone: [facility] DO Work Phone: 06-23-2021 15:54-0500 Heart rate 70 /min Trey Gamaman Work Phone: [facility] DO Work Phone: 06-23-2021 15:54-0500 Systolic blood pressure 126 mm[Hg] Trey Brown Work Phone: [facility] DO Work Phone: 04-21-2021 13:17-0500 Body height 157.48 cm Trey Gamaman Work Phone: [facility] DO Work Phone: 04-21-2021 13:17-0500 Body mass index (BMI) [Ratio] 33.29 kg/m2 Trey Brown Work Phone: [facility] DO Work Phone: 04-21-2021 13:17-0500 Body surface area Derived from formula 1.84 m2 Trey Gamaman Work Phone: [facility] DO Work Phone: 04-21-2021 13:17-0500 Body weight 82.56 kg Trey Gamaman Work Phone: [facility] DO Work Phone: 04-21-2021 13:17-0500 Diastolic blood pressure 66 mm[Hg] Trey Gamaman Work Phone: [facility] DO Work Phone: 04-21-2021 13:17-0500 Heart rate 63 /min Trey Gamaman Work Phone: [facility] DO Work Phone: 04-21-2021 13:17-0500 Systolic blood pressure 118 mm[Hg] Trey Gamaman Work Phone: [facility] DO Work Phone: 03-31-2021 11:15-0500 Body height 157.48 cm Tiffanie Scally Other [employer] Other 03-31-2021 11:15-0500 Body mass index (BMI) [Ratio] 33.63 kg/m2 Tiffanie Scally Other [employer] Other 03-31-2021 11:15-0500 Body temperature 98.7 [degF] Tiffanie Scally Other [employer] Other 03-31-2021 11:15-0500 Body weight 83.42 kg Tiffanie Scally Other [employer] Other 03-31-2021 11:15-0500 Diastolic blood pressure 79 mm[Hg] Tiffanie Scally Other [employer] Other 03-31-2021 11:15-0500 Respiratory rate 18 /min Tiffanie Ventura Other [employer] Other 03-31-2021 11:15-0500 SaO2% (BldA) [Mass fraction] 99 % Tiffanie Ventura Other [employer] Other 03-31-2021 11:15-0500 Systolic blood pressure 127 mm[Hg] Tiffanie Ventura Other [employer] Other Encounters Encounter Date Encounter Type Care Provider Facility Start: 03-20-2025 ambulatory HEATHER SAMUEL Facili ty:JAQUAN Juárez Start: 09-23-2024 End: 09-24-2024 Refill Trey Brown DO Work Phone: [facility] Comment on above: Obesity (BMI 30.0-34 .9); Hemoptysis; Anxiety and depression (CMS/HCC) Start: 09-13-2024 End: 09-13-2024 Departed Referred Trey Brown DO Work Phone: [facility] Start: 09-13-2024 End: 09-13-2024 ambulatory Trey Brown DO Work Phone: [facility] Work Phone: Start: 09-13-2024 End: 09-13-2024 Patient encounter procedure Trey Brown DO Work Phone: [facility] [place] Work Phone: Start: 09-12-2024 End: 09-12-2024 ambulatory HEATHER SAMUEL Facility:[facility] Juárez Start: 08-28-2024 End: 08-28-2024 Patient encounter procedure Trey Brown DO Work Phone: [facility] [place] Work Phone: Start: 08-28-2024 End: 08-28-2024 ambulatory Trey Brown DO Work Phone: [facility] Work Phone: Start: 08-22-2024 End: 08-22-2024 Office outpatient visit 25 minutes Trey Brown DO Work Phone: [facility] Comment on above: DARNELL (obstructive sle ep apnea) (Primary Dx); Malignant carcinoid tumor of the duodenum; Gastroparesis; Irritable bowel syndrome with both constipation and diarrhea; IFG (impaired fasting glucose); Obesity (BMI 30.0-34.9); Mixed hyperlipidemia (CMS/HCC); Anxiety and depression (CMS/HCC); Kidney stones, calcium oxalate Start: 08-22-2024 End: 08-22-2024 ambulatory TREY BROWN Not Available Start: 08-18-2024 End: 08-18-2024 Emergency department patient visit Trey Brown DO Work Phone: [facility] Work Phone: Start: 08-16-2024 End: 08-16-2024 Telephone encounter Marya SALAZARS [facility] Comment on above: Vaginitis/Bacterial Vaginosis Start: 08-13-2024 End: 08-13-2024 ambulatory Trey Brown DO Work Phone: [facility] Work Phone: Start: 08-13-2024 End: 08-13-2024 Patient encounter procedure Trey Brown DO Work Phone: [facility] Infect Dis Work Phone: Start: 07-30-2024 End: 07-30-2024 ambulatory Trey Brown DO Work Phone: [facility] Work Phone: Start: 07-30-2024 End: 07-30-2024 Patient encounter procedure Trey Brown DO Work Phone: [facility] Physician [facility] [place] Work Phone: Start: 07-27-2024 End: 07-27-2024 Patient encounter procedure Heather Rik PT Work Phone: Physical Therapy Comment on above: Pelvic floor tension (Primary Dx) Start: 07-27-2024 End: 07-27-2024 ambulatory Heather Rik PT Work Phone: Physical Therapy Start: 07-19-2024 End: 07-19-2024 Patient encounter procedure Trey Brown DO Work Phone: [facility] [place] Work Phone: Start: 07-19-2024 End: 07-19-2024 ambulatory Trey Brown DO Work Phone: [facility] Work Phone: Start: 07-16-2024 End: 07-16-2024 ambulatory Trey Brown DO Work Phone: [facility] Work Phone: Start: 07-16-2024 End: 07-16-2024 Patient encounter procedure Trey Brown DO Work Phone: [facility] Physician [facility] Infect Dis Work Phone: Start: 07-10-2024 End: 07-10-2024 Office outpatient visit 25 minutes Lala Liu COMMUTATOR UNDERCUTTER Work Phone: [facility] Comment on above: Strep throat (Primar y Dx); Other fatigue; Lower urinary tract symptoms Start: 07-10-2024 End: 07-10-2024 ambulatory TREY BROWN Not Available Start: 07-05-2024 End: 07-05-2024 Departed Referred Trey Brown DO Work Phone: [facility] [place] Work Phone: Start: 07-05-2024 End: 07-05-2024 ambulatory Trey Brown DO Work Phone: [facility] Work Phone: Start: 07-05-2024 End: 07-05-2024 Patient encounter procedure Trey Brown DO Work Phone: [facility] [place] Work Phone: Start: 06-18-2024 End: 06-18-2024 Follow-up encounter Angel Cisse MD Work Phone: Allergy Start: 06-15-2024 End: 06-18-2024 Clinisync Result Encounter Generic External Data Provider [facility] External Department Unsolicited Start: 06-15-2024 End: 06-18-2024 Clinisync Result Encounter Generic External Data Provider [facility] External Department Unsolicited Start: 06-15-2024 ambulatory SOL Gregg ty:[facility] Start: 06-15-2024 End: 06-15-2024 ambulatory ANGEL CISSE Facility:[facility] Start: 06-08-2024 End: 06-08-2024 Patient encounter procedure Trey Brown DO Work Phone: [facility] [place] Work Phone: Start: 06-08-2024 End: 06-08-2024 ambulatory Trey Brown DO Work Phone: [facility] Work Phone: Start: 06-08-2024 End: 06-08-2024 Office outpatient visit 40 minutes Trinity Monet MD Work Phone: [facility] Comment on above: Palpitations; Sensation of chest pressure; Shortness of breath; Mixed hyperlipidemia; Malignant carcinoid tumor of stomach; Abdominal bloating; Sleep apnea, unspecified type; BMI 36.0-36.9,adult; Former smoker Start: 06-08-2024 End: 06-08-2024 ambulatory [facility] Start: 06-01-2024 End: 06-01-2024 Clinisync Result Encounter Generic External Data Provider [facility] External Department Unsolicited Start: 06-01-2024 End: 06-01-2024 Clinisync Result Encounter Generic External Data Provider [facility] External Department Unsolicited Start: 06-01-2024 End: 06-01-2024 ambulatory TREY BROWN Facility:[facility] Start: 06-01-2024 End: 06-01-2024 Patient encounter procedure Joaquim Mann MD Work Phone: Otolaryngology Comment on above: Sore throat (Primary Dx); Thyroid nodule; Acute recurrent streptococcal tonsillitis Start: 05-29-2024 End: 05-29-2024 ambulatory LINDA DARIAN ANJUM Facility:[facility] Start: 05-29-2024 End: 05-29-2024 Patient encounter procedure Senior Data Integration Developer [facility] Work Phone: Cardiology Comment on above: Abdominal swelling Start: 05-23-2024 End: 05-23-2024 Departed Referred Trey Brown DO Work Phone: [facility] [place] Work Phone: Start: 05-23-2024 End: 05-23-2024 ambulatory Trey Brown DO Work Phone: [facility] Work Phone: Start: 05-23-2024 End: 05-23-2024 Patient encounter procedure Trey Brown DO Work Phone: [facility] [place] Work Phone: Start: 05-21-2024 End: 05-21-2024 ambulatory Angel Cisse MD Work Phone: Allergy Comment on above: hello Start: 05-21-2024 End: 05-21-2024 E-mail encounter from caregiver Angle Cisse MD Work Phone: Allergy Start: 05-19-2024 End: 05-19-2024 ambulatory Trey Brown DO Work Phone: [facility] Work Phone: Start: 05-19-2024 End: 05-19-2024 Patient encounter procedure Trey Brown DO Work Phone: [facility] Physician [facility] [place] Work Phone: Start: 05-18-2024 End: 05-18-2024 ambulatory Heather Jolly PT Work Phone: Physical Therapy Start: 05-18-2024 End: 05-18-2024 Patient encounter procedure Heather Jolly PT Work Phone: Physical Therapy Comment on above: Pelvic floor tension (Primary Dx) Start: 05-17-2024 End: 05-17-2024 ambulatory Trey Brown DO Work Phone: [facility] Work Phone: Start: 05-17-2024 End: 05-17-2024 Patient encounter procedure Trey Brown DO Work Phone: [facility] Physician [facility] Pulmonary Work Phone: Start: 05-15-2024 End: 05-15-2024 ambulatory ANGEL CISSE Facility:[facility] Start: 05-15-2024 End: 2024 Clinisync Result Encounter Generic External Data Provider [facility] External Department Unsolicited Start: 05-15-2024 End: 2024 Clinisync Result Encounter Generic External Data Provider [facility] External Department Unsolicited Start: 05-15-2024 End: 05-15-2024 Office consultation new/estab patient 60 min Angel Cisse MD Work Phone: Allergy Comment on above: Recurrent infections (Primary Dx); Angioedema, initial encounter Start: 05-11-2024 End: 05-11-2024 ambulatory Heather Jolly PT Work Phone: Physical Therapy Start: 05-11-2024 End: 05-11-2024 Patient encounter procedure Heather Jolly PT Work Phone: Physical Therapy Comment on above: Pelvic floor tension (Primary Dx); Pelvic floor dysfunction Start: 04-27-2024 End: 04-27-2024 Clinisync Result Encounter Generic External Data Provider [facility] External Department Unsolicited Start: 04-27-2024 End: 04-27-2024 Clinisync Result Encounter Generic External Data Provider [facility] External Department Unsolicited Start: 04-27-2024 End: 04-27-2024 ambulatory LINDA VALERO Facility:[facility] Start: 04-27-2024 End: 04-27-2024 Office consultation new/estab patient 80 min Linda Valero MD Work Phone: Rheumatology Comment on above: Bone pain (Primary D x); Abdominal swelling; Recurrent infections Start: 04-26-2024 End: 06-08-2024 Telephone encounter Naty Booker DO Work Phone: [facility] Comment on above: Patient Update; Lala ent Question Start: 04-25-2024 End: 04-25-2024 ambulatory HEATHER SAMUEL Facility:[facility] Start: 04-25-2024 End: 04-25-2024 Patient encounter procedure HEATHER SAMUEL [facility] Start: 04-24-2024 End: 04-24-2024 Telephone encounter Trey Brown DO Work Phone: [facility] Start: 04-24-2024 End: 04-24-2024 Patient encounter procedure Trey Brown DO Work Phone: [facility] [place] Work Phone: Start: 04-17-2024 End: 04-17-2024 Patient encounter procedure Trey Brown DO Work Phone: [facility] Work Phone: Start: 04-17-2024 End: 04-17-2024 ambulatory Trey Brown Facility:[facility] Start: 04-16-2024 End: 04-16-2024 Patient encounter procedure Trey Brown DO Work Phone: [facility] Health Neurosurgery Work Phone: Start: 04-16-2024 End: 04-16-2024 Office outpatient visit 25 minutes Trey Brown DO Work Phone: [facility] Comment on above: Diarrhea due to drug (Primary Dx); Irritable bowel syndrome with both constipation and diarrhea; Gastroparesis; Gastroesophageal reflux disease with esophagitis without hemorrhage Start: 04-16-2024 End: 04-16-2024 ambulatory TREY BROWN Not Available Start: 04-12-2024 End: 04-12-2024 Patient encounter procedure Trey Brown DO Work Phone: [facility] Work Phone: Start: 04-12-2024 End: 04-12-2024 ambulatory Trey Brown Facility:[facility] Start: 04-10-2024 End: 04-11-2024 Orders Only Jose Daniel Pham COMMUTATOR UNDERCUTTER Work Phone: [facility] External Department Unsolicited Start: 04-06-2024 End: 04-06-2024 Patient encounter procedure Trey Brown DO Work Phone: [facility] [place] Work Phone: Start: 04-04-2024 End: 04-04-2024 ambulatory Elida Fung MS Work Phone: [facility] Comment on above: Genetic test results Start: 04-04-2024 End: 04-04-2024 E-mail encounter from caregiver Elida Fung MS Work Phone: [facility] Start: 03-29-2024 End: 03-29-2024 ambulatory NATY BOOKER JR Facility:[facility] Start: 03-29-2024 End: 03-29-2024 Subsequent hospital visit by physician Naty Booker DO Work Phone: [facility] Comment on above: GI carcinoid tumor [ D3A.098] Start: 03-28-2024 End: 03-28-2024 Telephone encounter Naty Booker DO Work Phone: General Surgery Comment on above: Patient Question Start: 03-27-2024 End: 03-27-2024 Bamboo flowsheet Karla Wallace LABELING STRATEGIST-PHLEBOTOMY SERVICES TECHNICIAN Work Phone: [facility] Start: 03-27-2024 End: 03-27-2024 Bamboo flowsheet Karla Wallace LABELING STRATEGIST-PHLEBOTOMY SERVICES TECHNICIAN Work Phone: [facility] Start: 03-27-2024 End: 03-27-2024 Office outpatient visit 15 minutes Karla Wallace LABELING STRATEGIST-PHLEBOTOMY SERVICES TECHNICIAN Work Phone: [facility] Comment on above: Melanocytic nevus of trunk (Primary Dx); Melanocytic nevus of upper extremity, unspecified laterality; Seborrheic keratosis; Dermatofibroma; Pilar cyst of scalp; Capillary angioma; Lentigines Start: 03-27-2024 End: 03-27-2024 ambulatory KARLA WALLACE Not Available Start: 03-27-2024 End: 03-27-2024 ambulatory TOBIN TABOR Facility:[facility] Start: 03-26-2024 End: 03-26-2024 ambulatory RACHAEL BANEGAS Not Available Start: 03-20-2024 End: 03-20-2024 Telemedicine consultation with patient Elida Fung MS Work Phone: [facility] Start: 03-20-2024 End: 03-20-2024 Admission to same day surgery center Sol Nuñez APRN.PHLEBOTOMY SERVICES TECHNICIAN Work Phone: Colorectal Surgery Comment on above: Manometry Start: 03-20-2024 End: 03-20-2024 ambulatory Elida Fung MS Work Phone: [facility] Comment on above: Family history of co marjan cancer (Primary Dx); Family history of kidney cancer; Malignant carcinoid tumor of duodenum (HCC) Start: 03-20-2024 End: 03-20-2024 Patient encounter procedure Sol Nuñez APRN.PHLEBOTOMY SERVICES TECHNICIAN Work Phone: Colorectal Surgery Comment on above: Pelvic floor dysfunc tion (Primary Dx); Abdominal bloating; FH: colon cancer; Alternating constipation and diarrhea Start: 03-19-2024 End: 03-19-2024 E-mail encounter from caregiver Elida Fung MS Work Phone: [facility] Start: 03-19-2024 End: 03-19-2024 Patient encounter procedure Elida Fung MS Work Phone: [facility] Comment on above: Genetic counseling a ppointment Start: 03-16-2024 End: 03-19-2024 Telephone encounter Naty Booker DO Gastroenterology Comment on above: Patient Request Start: 03-12-2024 End: 03-12-2024 E-mail encounter from caregiver Azra [facility] Work Phone: [facility] Start: 03-12-2024 End: 03-12-2024 Patient encounter procedure Nurse [facility] Work Phone: [facility] Comment on above: Appointment Cancella tion Request Start: 03-08-2024 End: 03-08-2024 Office outpatient visit 25 minutes Rachael Banegas NP Work Phone: [facility] Comment on above: Cervical radiculopat hy (Primary Dx); History of GI tract cancer; Polyarthralgia Start: 03-08-2024 End: 03-08-2024 ambulatory RACHAEL BANEGAS Not Available Start: 03-05-2024 End: 03-05-2024 Office outpatient visit 25 minutes Trey Brown DO Work Phone: [facility] Comment on above: DARNELL (obstructive sle ep apnea) (Primary Dx); Mixed hyperlipidemia (CMS/HCC); IFG (impaired fasting glucose); Gastroparesis Start: 03-05-2024 End: 03-05-2024 ambulatory TREY BROWN Not Available Start: 02-15-2024 End: 02-15-2024 Telephone encounter Provider [facility] Comment on above: Appointment Start: 01-25-2024 End: 01-25-2024 Clinisync Result Encounter Generic External Data Provider [facility] External Department Unsolicited Start: 01-25-2024 End: 01-25-2024 Clinisync Result Encounter Generic External Data Provider [facility] External Department Unsolicited Start: 01-25-2024 End: 01-26-2024 ambulatory Seamus DYER Facility:[id number] Start: 01-25-2024 End: 01-25-2024 Patient encounter procedure Seamus DYER [facility] Start: 01-24-2024 End: 01-24-2024 Patient encounter procedure DO Trey Brown Work Phone: [facility] Work Phone: Start: 01-24-2024 End: 01-24-2024 ambulatory DO Trey Brown Work Phone: [facility] Work Phone: Start: 01-22-2024 End: 01-23-2024 Emergency department patient visit DO Trey Brown Work Phone: [facility] Work Phone: Start: 12-27-2023 End: 12-27-2023 ambulatory Luis Fernando Tirado MD Work Phone: Gastroenterology Comment on above: Gas Start: 12-27-2023 End: 12-27-2023 Patient encounter procedure Luis Fernando Tirado MD Work Phone: Gastroenterology Start: 12-27-2023 End: 12-27-2023 ambulatory TREY BROWN Facility:[facility] Start: 12-26-2023 End: 12-26-2023 ambulatory NATY BOOKER JR Facility:[facility] Start: 12-26-2023 End: 12-26-2023 Nursing evaluation of patient and report Nurse [facility]ra Joseph [facility] Comment on above: Abdominal bloating ( Primary Dx); Small intestinal bacterial overgrowth (SIBO) Start: 12-22-2023 End: 12-22-2023 ambulatory TREY LOTTAN STEPHANIE Facility:[facility] Start: 12-22-2023 End: 12-22-2023 Subsequent hospital visit by physician General Padilla Juárez Mc Work Phone: Radiology Comment on above: LLQ pain [R10.32] Start: 12-20-2023 End: 12-20-2023 ambulatory TREY BROWN Facility:[facility] Start: 12-19-2023 End: 12-19-2023 ambulatory TREY LOTTAN STEPHANIE Facility:[facility] Start: 12-19-2023 ambulatory TREY JABIERMARY JO BROWN Fa cility:[facility] Start: 12-09-2023 End: 12-09-2023 ambulatory LALA CARBAJAL Facility:[facility] Start: 12-09-2023 End: 12-09-2023 Patient encounter procedure Lala Carbajal MD, PhD Work Phone: Gastroenterology Comment on above: Abdominal bloating ( Primary Dx); FH: colon cancer; LLQ pain; Constipation, unspecified constipation type Start: 12-08-2023 End: 12-08-2023 ambulatory TREY BROWN Facility:[facility] Start: 12-08-2023 End: 12-08-2023 Office outpatient visit 25 minutes Annemarie Judd MD Work Phone: Hematology/Oncology Comment on above: 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); Malignant carcinoid tumor of foregut (HCC); Exocrine pancreatic insufficiency Start: 12-07-2023 End: 12-07-2023 Emergency department patient visit DO Trey Brown Work Phone: [facility] Work Phone: Start: 12-07-2023 End: 12-07-2023 ambulatory SONIA SOFIA Not Available Start: 12-05-2023 End: 01-23-2024 Telephone encounter Annemarie Judd MD Work Phone: Hematology/Oncology Comment on above: Lab Orders Start: 11-30-2023 End: 11-30-2023 ambulatory TREY BROWN Facility:[facility] Start: 11-30-2023 End: 11-30-2023 Subsequent hospital visit by physician Arrival Time Radiology Work Phone: Radiology [facility] Comment on above: Malignant carcinoid tumor of duodenum (HCC) [C7A.010] Start: 11-11-2023 End: 11-11-2023 ambulatory TREY BROWN Facility:[facility] Start: 11-08-2023 End: 11-08-2023 ambulatory TREY BROWN Not Available Start: 10-25-2023 Telephone encounter Annemarie ly MD Work Phone: [facility] Comment on above: Appointment Start: 10-19-2023 End: 10-19-2023 ambulatory TREY BROWN Not Available Start: 10-07-2023 Telephone encounter Annemarie ly MD Work Phone: Hematology/Oncology Comment on above: Orders Start: 09-22-2023 End: 09-22-2023 ambulatory DO Trey Brown Work Phone: [facility] Work Phone: Start: 09-22-2023 End: 09-22-2023 Patient encounter procedure DO Trey Brown Work Phone: [facility] [place] Work Phone: Start: 09-22-2023 End: 09-22-2023 Patient encounter procedure DO Trey Brown Work Phone: [facility] Work Phone: Start: 09-20-2023 End: 09-20-2023 Patient encounter procedure DO Trey Brown Work Phone: [facility] [place] Work Phone: Start: 09-20-2023 End: 09-20-2023 ambulatory DICK HALL Not Available Start: 09-16-2023 End: 09-16-2023 ambulatory TREY BROWN Not Available Start: 09-13-2023 Telephone encounter Sandra Gage MD Work Phone: Endocrinology Comment on above: Results Start: 09-02-2023 End: 09-02-2023 ambulatory DO Trey Brown Work Phone: [facility] Work Phone: Start: 09-02-2023 End: 09-02-2023 Patient encounter procedure DO Trey Brown Work Phone: [facility] [place] Work Phone: Start: 08-23-2023 End: 08-23-2023 ambulatory TREY BROWN Facility:[facility] Start: 08-19-2023 End: 08-19-2023 ambulatory Annemarie Judd MD Work Phone: Hematology/Oncology Comment on above: 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); Exocrine pancreatic insufficiency; Malignant carcinoid tumor of foregut (HCC); Lung nodule; Bloating; Thyroid nodule greater than or equal to 1.5 cm in diameter incidentally noted on imaging study Start: 08-19-2023 End: 08-19-2023 Telemedicine consultation with patient Annemarie Judd MD Work Phone: [facility] Start: 08-19-2023 End: 08-19-2023 ambulatory NATY BOOKER Facility:[facility] Start: 08-19-2023 End: 08-19-2023 Patient encounter procedure Sandra Gage MD Work Phone: Endocrinology Comment on above: Weight gain (Primary Dx); Abdominal bloating; Katy's syndrome (HCC) Start: 08-19-2023 End: 08-19-2023 ambulatory TREY BROWN Facility:[facility] Start: 08-15-2023 End: 08-15-2023 ambulatory TREY BROWN Facility:[facility] Start: 08-10-2023 Telephone encounter Karla Gaines Hematology/Oncology Comment on above: Results Start: 08-10-2023 End: 08-10-2023 ambulatory TREY BROWN Facility:[facility] Start: 08-10-2023 End: 08-10-2023 Subsequent hospital visit by physician [facility] Comment on above: Malignant carcinoid tumor of duodenum (HCC) [C7A.010] Start: 08-09-2023 End: 08-09-2023 ambulatory DO Trey Brown Work Phone: [facility] Work Phone: Start: 08-09-2023 End: 08-09-2023 Patient encounter procedure DO Trey Brown Work Phone: [facility] [place] Work Phone: Start: 08-05-2023 End: 08-05-2023 ambulatory NATY BOOKER JR Facility:[facility] Start: 08-01-2023 Telephone encounter Karla Gaines [facility] Comment on above: Appointment Start: 07-27-2023 End: 07-27-2023 ambulatory Annemarie Judd MD Work Phone: Hematology/Oncology Comment on above: 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); Exocrine pancreatic insufficiency; Malignant carcinoid tumor of foregut (HCC); Lung nodule; Bloating Start: 07-27-2023 End: 07-27-2023 Telemedicine consultation with patient Annemarie Judd MD Work Phone: [employer] Start: 07-23-2023 End: 07-23-2023 ambulatory DO Trey Brown Work Phone: [facility] Work Phone: Start: 07-23-2023 End: 07-23-2023 Patient encounter procedure DO Trey Brown Work Phone: [facility] [place] Work Phone: Start: 07-20-2023 End: 07-20-2023 Subsequent hospital visit by physician Arrival Time Radiology Work Phone: Radiology [facility] Comment on above: Interstitial pulmona ry disease (HCC) [J84.9] Start: 07-16-2023 End: 07-16-2023 Patient encounter procedure DO Treyjak Brown Work Phone: [facility] [place] Work Phone: Start: 07-01-2023 Telephone encounter Karla Gaines Hematology/Oncology Comment on above: Rheumatology consult Start: 06-30-2023 ambulatory TREY LOTTAN STEPHANIE Valero cility:[facility] Start: 06-30-2023 End: 06-30-2023 Subsequent hospital visit by physician [facility] Work Phone: Radiology Comment on above: Thyroid nodule [E04. 1] Start: 06-30-2023 End: 06-30-2023 Patient encounter procedure Joaquim Mann MD Work Phone: Otolaryngology Comment on above: Thyroid nodule (Prim amelie Dx); Duodenal carcinoid syndrome (HCC); Gastric carcinoma (HCC) Start: 06-17-2023 Office outpatient vi sit 10 minutes Renu Oquendo [facility] Start: 06-17-2023 End: 06-17-2023 ambulatory DO Trey Brown Work Phone: [employer] Other Start: 06-17-2023 End: 06-17-2023 Patient encounter procedure DO Trey Borwn Work Phone: [facility] Work Phone: Start: 06-13-2023 End: 06-13-2023 Office outpatient visit 25 minutes Jose Daniel Pham COMMUTATOR UNDERCUTTER Work Phone: [facility] Comment on above: Irritable bowel synd tereza with both constipation and diarrhea (Primary Dx); Bloating; LPRD (laryngopharyngeal reflux disease); Atherosclerosis of aorta (I70.0) Start: 06-09-2023 End: 06-09-2023 Emergency department patient visit DO Trey Brown Work Phone: [facility] Work Phone: Start: 05-05-2023 End: 05-05-2023 Subsequent hospital visit by physician Arrival Time Radiology Work Phone: Radiology [facility] Comment on above: Malignant carcinoid tumor of duodenum (HCC) [C7A.010] Start: 04-27-2023 End: 04-27-2023 Emergency department patient visit DO Trey Brown Work Phone: [facility] Work Phone: Start: 04-20-2023 Telephone encounter Karla Gaines Hematology/Oncology Comment on above: Patient Question; Re suljamel Start: 04-19-2023 End: 04-19-2023 Subsequent hospital visit by physician Arrival Time Radiology Work Phone: Radiology Pet CT Comment on above: Malignant carcinoid tumor of duodenum (HCC) [C7A.010] Start: 04-06-2023 End: 04-06-2023 ambulatory DO Trey Brown Work Phone: [facility] Work Phone: Start: 04-06-2023 End: 04-06-2023 Patient encounter procedure DO Trey Brown Work Phone: [facility] [place] Work Phone: Start: 03-15-2023 Telephone encounter Andra mcgee RT(R) Radiology Pet CT Comment on above: Appointment Start: 03-14-2023 End: 03-14-2023 Office outpatient visit 25 minutes Annemarie Judd MD Work Phone: Hematology/Oncology Comment on above: 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 Susana Floyd Facility: Start: 01-20-2023 End: 01-20-[address] Susana Floyd Facility:[id number] Start: 12-29-2022 ambulatory MÓNICA ALMANZAR Fa cility:[facility] Start: 12-29-2022 End: 12-29-2022 Subsequent hospital visit by physician Naty Booker DO Work Phone: Procedures Comment on above: Generalized abdomina l pain [R10.84] Start: 12-09-2022 Office outpatient vi sit 25 minutes Trey Brown Work Phone: [facility] [address] DO Work Phone: Start: 12-09-2022 Patient encounter procedure Trey Brown Work Phone: [facility] [address] DO Work Phone: Start: 12-09-2022 ambulatory Rachel Avalos Fa cility: Start: 11-30-2022 Telephone encounter Naty hilario DO Work Phone: Gastgroenterology Comment on above: Patient Question; Or ders Start: 11-25-2022 End: 11-25-2022 Emergency department patient visit DO Trey Brown Work Phone: [facility]Emergency Room Work Phone: Start: 11-22-[address] Susana Floyd Facility:[id number] Start: 11-11-2022 Telephone encounter Joaquim Mann MD Work Phone: [facility] [place] Comment on above: Results Start: 10-25-2022 End: 10-25-2022 Patient encounter procedure Joaquim Mann MD Work Phone: Otolaryngology Comment on above: Thyroid nodule (Prim amelie Dx) Start: 09-14-2022 End: 09-14-2022 ambulatory Hernando Hylton Other [employer] Other Start: 09-14-2022 Office outpatient vi sit 15 minutes Hernando Hylton [facility] Start: 08-17-[address] Trey Winchester Facility:[id number] Start: 08-12-2022 ambulatory UNKNOWN PROVIDER Facili ty:[facility] Start: 08-12-2022 End: 08-12-2022 Subsequent hospital visit by physician Gi/Gu [facility] Work Phone: Radiology Start: 08-03-2022 Telephone encounter Naty hilario DO Work Phone: Gastroenterology Comment on above: Results Medication Problem Start: 08-02-2022 Refill Annemarie lee MD Work Phone: Hematology/Oncology Comment on above: Refill Request Start: 07-30-2022 Telephone encounter Naty hilario DO Work Phone: Gastroenterology Comment on above: Patient Update Start: 07-30-2022 End: 07-30-2022 Subsequent hospital visit by physician Naty Booker DO Work Phone: Ambulatory Surgery Comment on above: Gastroesophageal ref lux disease, unspecified whether esophagitis present [K21.9] Start: 07-26-[address] Trey Winchester Facility:[id number] Start: 07-22-2022 End: 07-22-2022 ambulatory Darvin Pritchard MD Work Phone: Gastroenterology Comment on above: Chronic gastric ulce r without hemorrhage and without perforation (Primary Dx) Start: 07-22-2022 End: 07-22-2022 Telemedicine consultation with patient Darvin Pritchard MD Work Phone: [facility] Start: 07-21-2022 Telephone encounter Darvin ni MD Work Phone: Gastroenterology Comment on above: Appointment Start: 07-16-2022 End: 07-16-2022 Office outpatient visit 25 minutes Annemarie Judd MD Work Phone: Hematology/Oncology Comment on above: 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 Trey Winchester Facility:[id number] Start: 06-16-2022 End: 06-16-2022 ambulatory DO Trey Brown Work Phone: [facility] Work Phone: Start: 06-16-2022 End: 06-16-2022 Patient encounter procedure DO Trey Brown Work Phone: [facility] [place] Work Phone: Start: 06-11-2022 End: 06-11-2022 ambulatory DO Trey Brown Work Phone: [facility] Work Phone: Start: 06-11-2022 End: 06-11-2022 Patient encounter procedure DO Trey Brown Work Phone: [facility]CT [facility] [place] Work Phone: Start: 06-08-2022 Current tobacco non- user cad cap copd pv dm Trey Brown Work Phone: [facility] [address] DO Work Phone: Start: 06-08-[address] Trey Winchester Facility:[id number] Start: 05-25-[address] Susana Floyd Facility:[id number] Start: 05-04-2022 End: 05-04-2022 ambulatory Serena Fuentes Other [employer] Other Start: 05-04-2022 Telephone encounter Serena Fuentes [facility] Start: 04-24-[address] Susana Floyd Facility:[id number] Start: 04-08-2022 End: 04-08-2022 Patient encounter procedure DO Trey Brown Work Phone: [facility] 250 Start: 04-08-2022 End: 04-08-2022 ambulatory DO Trey Brown Work Phone: [facility] Work Phone: Start: 04-08-2022 Office outpatient vi sit 15 minutes Hernando Hylton [facility] [address] Start: 03-24-[address] Susana Floyd Facility:[id number] Start: 03-16-2022 Telephone encounter Naty hilario DO Work Phone: General Surgery Comment on above: FMLA Paperwork Start: 03-12-2022 End: 03-12-2022 Patient encounter procedure Naty Booker DO Work Phone: General Surgery Comment on above: Gastroenteritis (Sintia freddie Dx); Peptic ulcer disease; History of benign carcinoid tumor of gastrointestinal tract Start: 03-10-2022 End: 03-10-2022 Patient encounter procedure DO Trey Brown Work Phone: [facility] Start: 03-10-2022 End: 03-10-2022 ambulatory Renu Azra Other [employer] Other Start: 03-10-2022 Office outpatient vi sit 10 minutes Renu Azra 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) Start: 03-04-2022 End: 03-05-2022 Telemedicine consultation with patient Annemarie Judd MD Work Phone: [facility] Start: 03-01-2022 Telephone encounter Naty hilario DO Work Phone: Gastroenterology Comment on above: Patient Question Start: 02-25-2022 End: 02-25-2022 Subsequent hospital visit by physician Naty Booker DO Work Phone: Ambulatory Surgery Comment on above: Generalized abdomina l pain [R10.84] Start: 02-24-2022 Telephone encounter Naty hilario DO Work Phone: Ambulatory Surgery Comment on above: Patient Question (Up per endoscopy) Start: 02-23-2022 Telephone encounter Naty hilario DO Work Phone: Gastroenterology Comment on above: Procedure Start: 02-23-2022 End: 02-23-2022 Patient encounter procedure Naty Booker DO Work Phone: General Surgery Comment on above: Gastroenteritis (Sintia freddie Dx); Generalized abdominal pain; Benign carcinoid tumor of stomach Start: 02-22-2022 End: 02-22-2022 Emergency department patient visit DO Trey Brown Work Phone: [facility]Emergency [facility] Start: 02-21-[address] 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 Work Phone: Start: 12-14-2021 End: 12-14-2021 Patient encounter procedure DO Trey Brown Work Phone: [facility] Start: 12-09-2021 End: 12-09-2021 Emergency department patient visit DO Trey Brown Work Phone: [facility]-Emergency Room Start: 12-09-2021 End: 12-09-2021 Patient encounter procedure DO Trey Brown Work Phone: [facility] Swab Start: 11-30-2021 End: 11-30-2021 Patient encounter procedure DO Trey Brown Work Phone: [facility] Start: 11-30-2021 End: 11-30-2021 ambulatory Bharti Humphrey Other [facility] [employer] Other Start: 11-30-2021 Office outpatient ne w 30 minutes Bharti Humphrey [facility] Start: 11-28-2021 End: 11-28-2021 Emergency department patient visit DO Trey Brown Work Phone: [facility]Emergency Room Start: 11-05-2021 PPG IMPLNT, Provider : [facility] [employer] 5,[id number], Status: Pen, Time: 12:30 PM Trey Brown Work Phone: [facility] [address] DO Work Phone: Start: 11-05-2021 STUDY, Provider: [facility] [employer] 4,[id number], Status: Pen, Time: 10:30 AM Trey Brown Work Phone: [facility] [address] DO Work Phone: Start: 11-05-2021 [facility], Provider: Susana Floyd, Status: Pen, Time: 10:00 AM Trey Brown Work Phone: [facility] [facility] DO Work Phone: Start: 11-03-2021 Chart Update Trey camargo Work Phone: [facility] [facility] DO Work Phone: Start: 11-03-2021 End: 11-03-2021 Patient encounter procedure DO Trey Brown Work Phone: [facility] COVID Testing Start: 11-02-2021 Chart Update Trey camargo Work Phone: [facility] [facility] DO Work Phone: Start: 11-02-2021 End: 11-02-2021 Patient encounter procedure DO Trey Brown Work Phone: [facility] [place] Start: 10-26-2021 AUDIT Trey camargo Work Phone: [facility] 3 DO Work Phone: Start: 10-20-2021 Office outpatient vi sit 15 minutes Trey Brown Work Phone: [facility] [facility] DO Work Phone: Start: 09-01-2021 End: 09-01-2021 Patient encounter procedure DO Trey Brown Work Phone: [facility] Start: 08-07-2021 Telephone encounter Valerie Stovall RN Hematology/Oncology Comment on above: Lab Orders; Follow U p Start: 06-23-2021 Office outpatient vi sit 25 minutes Trey Brown Work Phone: [facility] 250 DO Work Phone: Start: 06-23-2021 Patient encounter procedure Trey Brown Work Phone: [facility] 250 DO Work Phone: Start: 04-21-2021 Current tobacco non- user cad cap copd pv dm Trey Brown Work Phone: [facility] 320 DO Work Phone: Start: 03-31-2021 End: 03-31-2021 ambulatory Tiffanie Dakotanicolas Other [facility] [employer] Other Start: 03-31-2021 Patient encounter procedure Tiffanie Audrey [facility] Preoperative state Trey augustine Work Phone: [facility] 3 DO Work Phone: Procedures Date Procedure Procedure Detail Performing Clinician Start: 09-13-2024 Quick Strep (POC) Trey Brown DO Work Phone: Start: 08-28-2024 Throat culture Trey Brown DO Work Phone: Start: 08-18-2024 Screening for occult blood in feces Tato Brown DO Work Phone: Start: 08-18-2024 CT of abdomen and pelvis without contrast Trey Brown DO Work Phone: Start: 07-30-2024 Quick Strep (POC) Trey Brown DO Work Phone: Start: 07-19-2024 Bacteria identified in Blood by Culture Trey Brown DO Work Phone: Start: 07-19-2024 Respiratory Panel (PCR) Trey Murillo Pio Work Phone: Start: 07-05-2024 Quick Strep (POC) Trey Brown DO Work Phone: Start: 07-05-2024 Urine culture Trey Brown DO Work Phone: Start: 06-15-2024 [facility] COMPLEMENT DEFICIENCY ASSAY Generic External Data Provider Start: 06-01-2024 S PYO DNA THROAT QL ADONAY+PROBE Generic Ex ternal Data Provider Start: 06-01-2024 Iadna streptococcus group a amplified probe tq Joaquim Mann MD Work Phone: Start: 05-29-2024 Echo tthrc r-t 2d w/wom-mode compl spec&colr d Linda Valero MD Work Phone: Start: 05-23-2024 Mononucleosis (POC) Trey Stephanie DO Work Phone: Start: 05-23-2024 Throat culture Trey Brown DO Work Phone: Start: 05-19-2024 Quick Strep (POC) Trey Brown DO Work Phone: Start: 05-15-2024 [facility] IMMUNODEFICIENCY PNL BLD FC Generic External Data Provider Start: 04-27-2024 [facility] ESR BLD QN WESTRGRN Generic External Data Provider Start: 04-24-2024 COVID Antigen (POC) Trey Brown DO Work Phone: Start: 04-24-2024 Quick Strep (POC) Trey Brown DO Work Phone: Start: 04-17-2024 X-ray of cervical spine Trey Suero Work Phone: Start: 04-17-2024 CT of chest without contrast Trey Gama fawn DO Work Phone: Start: 04-12-2024 Supine abdominal X-ray Treyjak Brown DO Work Phone: Start: 04-10-2024 Complete blood count with white cell differential, automated Jose Daniel Pham COMMUTATOR UNDERCUTTER Work Phone: Start: 04-10-2024 Comprehensive metabolic panel Jose Daniel Pham COMMUTATOR UNDERCUTTER Work Phone: Start: 04-10-2024 Lipid panel Jose Daniel Pham COMMUTATOR UNDERCUTTER Work Phone: Start: 04-10-2024 SPECIMEN STATUS REPORT Jose Daniel Pham COMMUTATOR UNDERCUTTER Work Phone: Start: 04-10-2024 Lipid 1996 panel - Serum or Plasma Heron Monet MD Work Phone: Start: 04-06-2024 Quick Strep (POC) Trey Brown DO Work Phone: Start: 03-29-2024 Esophagogastroduodenoscopy transoral diagnostic Naty Booker DO Work Phone: Start: 03-29-2024 Colonoscopy flx dx w/collj spec when pfrmd Naty Booker DO Work Phone: Start: 03-29-2024 Colonoscopy Naty Booker Jr., DO Work Phone: Start: 03-20-2024 ADULT [place] [facility] Lala Carbajal MD, PhD Work Phone: Start: 01-25-2024 [facility] APTT Generic External Data Provider Start: 01-25-2024 SRMCOH PROTHROMBIN TIME INR W/O COUM Generic External Data Provider Start: 01-24-2024 Diagnostic radiography of abdomen DO Yung Brown Work Phone: Start: 01-23-2024 CT of abdomen and pelvis without contrast DO Trey Brown Work Phone: Start: 12-27-2023 Breath hydrogen/methane test Naty holcomb DO Work Phone: Start: 12-22-2023 Radiologic exam abdomen 1 view Lala Carbajal MD, PhD Work Phone: Start: 12-07-2023 CT of abdomen and pelvis without contrast DO Trey Brown Work Phone: Start: 11-30-2023 Ct abdomen & pelvis w/contrast material Annemarie Judd MD Work Phone: Start: 11-30-2023 Ct thorax w/contrast material Annemarie yl MD Work Phone: Start: 09-20-2023 Mononucleosis (POC) DO Trey Brown Work Phone: Start: 09-20-2023 Quick Strep (POC) DO Trey Brown Work Phone: Start: 09-02-2023 Quick Strep (POC) DO Trey Brown Work Phone: Start: 08-10-[address] attenuation skull base mid-thigh Annemarie Judd MD Work Phone: Start: 08-09-2023 Plain X-ray of bilateral hands DO Renny Brown Work Phone: Start: 07-23-2023 Quick Strep (POC) DO Trey Brown Work Phone: Start: 07-20-2023 Ct thorax w/o contrast material Annemarie shearer MD Work Phone: Start: 07-16-2023 Quick Strep (POC) DO Trey Brown Work Phone: Start: 06-10-2023 Mammography Jose Daniel Pham COMMUTATOR UNDERCUTTER Work Phone: Start: 06-09-2023 CT of abdomen and pelvis without contrast DO Trey Brown Work Phone: Start: 06-09-2023 Plain chest X-ray DO Trey Brown Work Phone: Start: 05-05-2023 Ct thorax w/o contrast material Annemarie shearer MD Work Phone: Start: 04-27-2023 Plain chest X-ray DO Trey Brown Work Phone: Start: 04-19-2023 Ct abdomen & pelvis w/contrast material Annemarie Judd MD Work Phone: Start: 04-06-2023 Lipid 1995 panel - Serum or Plasma Jenna Shoemaker RN Start: 01-20-2023 Lipid 1996 panel - Serum or Plasma Naty Booker JrZahira, DO Work Phone: Start: 12-29-2022 Level iv surg pathology gross&microscopic exam Naty Booker DO Work Phone: Start: 12-29-2022 Esophagogastroduodenoscopy transoral diagnostic Naty Booker DO Work Phone: Start: 12-29-2022 Colonoscopy flx dx w/collj spec when pfrmd Naty Booker DO Work Phone: Start: 12-29-2022 Colonoscopy Naty Booker JrZahira, DO Work Phone: Start: 12-07-2022 Cholecystectomy Trey Brown Work Phone: Start: 07-30-2022 Level iv surg pathology gross&microscopic exam Naty Booker DO Work Phone: Start: 07-30-2022 Esophagogastroduodenoscopy transoral diagnostic Naty Booker DO Work Phone: Start: 06-11-2022 CT of abdomen and pelvis without contrast DO Trey Brown Work Phone: Start: 04-08-2022 Plain chest X-ray DO Trye Brown Work Phone: Start: 02-25-2022 Level iv surg pathology gross&microscopic exam Naty Booker DO Work Phone: Start: 02-25-2022 Esophagogastroduodenoscopy transoral diagnostic Naty Booker DO Work Phone: Start: 02-25-2022 Gluc bld gluc mntr dev cleared fda spec home use Naty Booker DO Work Phone: Start: 02-22-2022 Computed tomography of abdomen and pelvis with contrast DO Trey Brown Work Phone: Start: 12-09-2021 Plain chest X-ray DO Trey Brown Work Phone: Start: 09-01-2021 Mammography of left breast DO Trey leiva Work Phone: Start: 06-30-2020 Adult depression screening assessment Valerie Stovall RN Start: 08-30-2019 Cystourethroscopy with dilation of urethral stricture Seamus DYER Breast structure (body structure) Seamus DYER section Trey Arzola armmary jo Work Phone: Cholecystectomy Trey Berger Jaison cali Work Phone: Cholecystectomy Seamus PRIETO VILLALOBOS Colonoscopy Seamus DYER Esophagogastroduodenoscopy J aure Brown Work Phone: Hysterectomy Trey gaines Work Phone: Hysterectomy Seamus DYER Implantation of inse rtable loop recorder Trey Brown Work Phone: Intestinal structure (body structure) Seamus DYER Operation on bladder Trey Brown Work Phone: Operation on colon Trey Brown Work Phone: Operation on stomach Trey Brown Work Phone: Reduction mammoplasty Renny Brown Work Phone: Repair of shoulder Trey Brown Work Phone: SARS Antigen (LFIA) DO Baltazar Brown Work Phone: SARS-CoV-2, Influenza & RSV (PCR) DO Trey Brown Work Phone: Structure of left sh oulder region (body structure) Seamus DYER Total colonoscopy Trey Brown Work Phone: Urine culture DO Trey augustine Work Phone: Plan of Treatment Date Care Activity Detail Author Start: 03-29-2034 Screening for malignant neoplasm of colon [facility] Start: 12-29-2032 Screening for malignant neoplasm of colon [facility] Start: 04-10-2029 Lipid panel Lipid Panel [facility] Start: 03-29-2029 Screening for malignant neoplasm of colon Sigmoidoscopy [facility] Start: 04-06-2028 Lipid panel Lipid Screening [facility] Start: 01-21-2028 Lipid 1996 panel - Serum or Plasma Lipid Screening [facility] Start: 12-30-2027 Colonoscopy Colonoscopy [facility] Start: 12-30-2027 Colorectal Cancer Screening Colorectal Cancer Screening [facility] Start: 12-30-2027 Screening for malignant neoplasm of colon [facility] Start: 11-19-2027 LIPID SCREEN LIPID SCREEN [facility] Start: 08-13-2027 LIPID SCREEN LIPID SCREEN [facility] Start: 03-29-2027 Screening for malignant neoplasm of colon [facility] Start: 11-10-2026 Diabetes Screening Diabetes Screening [facility] Start: 08-14-2026 Diabetes Screening Diabetes Screening [facility] Start: 04-06-2026 Diabetes Screening Diabetes Screening [facility] Start: 03-14-2026 Diabetes Screening Diabetes Screening [facility] Start: 01-08-2026 Screening for malignant neoplasm of cervix [facility] Start: 09-13-2025 DIABETES SCREEN DIABETES SCREEN [facility] Start: 03-26-2025 End: 03-26-2025 Patient encounter procedure 03/26/2025 3:05 PM EST Office Visit [facility] [address] [place] [address] Karla Wallace, LABELING STRATEGIST-PHLEBOTOMY SERVICES TECHNICIAN [address] [place] [address] [facility] Start: 02-15-2025 End: 02-15-2025 Patient encounter procedure 02/15/2025 8:00 AM EDT Office Visit Gastroenterology [address] [place], [place] [id number] Naty Booker Jr., DO [address] [facility] [address] [place] [address] follow up Gastroenterology Comment on above: follow up Start: 02-11-2025 DIABETES SCREEN DIABETES SCREEN [facility] Start: 01-09-2025 End: 01-09-2025 Patient encounter procedure 01/09/2025 12:00 PM EDT Office Visit [facility] 1 [facility] [address] [place] [address] Lala Fischer, MS [facility] [address] [place] [address] Family history colon, and renal cancer [facility] Comment on above: Family history colon, and renal cancer Start: 01-07-2025 Influenza vaccination Influenza Vaccine (Season Ended) [facility] Start: 01-06-2025 Glaucoma screening Diabetes: Retinopathy Screening [facility] Start: 12-13-2024 End: 12-13-2024 Follow-up encounter Hematology/Oncology Comment on above: follow up after ct scan Start: 12-06-2024 End: 12-06-2024 Patient encounter procedure 12/06/2024 8:15 AM EDT Appointment Radiology Pet CT [address] [place] [address] [address] [place] [address] ct chest and liver and labs*no orders* Radiology Pet CT Comment on above: ct chest and liver and labs*no orders* Start: 11-21-2024 End: 11-21-2024 Patient encounter procedure 11/21/2024 9:15 AM EDT Office Visit [facility] [address] [place] [phone] Trey Brown DO [address] [place] [address] [facility] Start: 11-07-2024 Urine screening for protein Diabetes: Urine Protein Screening [facility] Start: 11-05-2024 End: 11-05-2024 Patient encounter procedure 11/05/2024 2:30 PM EDT Office Visit Cardiology [address] [facility] [place] [address] Manasa Guevara MD [address] [place] [address] abnormal echo Cardiology Comment on above: abnormal echo Start: 10-18-2024 Medicare Annual Wellness (AWV) Medicare Annual Wellness (AWV) [facility] Start: 10-15-2024 End: 10-15-2024 Patient encounter procedure 10/15/2024 8:00 AM EDT Office Visit [facility] [address] [facility] [address] [place] [address] Trey Brown DO [address] [facility] [address] [place] [address] [facility] Start: 09-13-2024 Throat culture Throat Culture [facility] Start: 09-13-2024 Bacteria identified in Throat by Aerobe culture [facility] Start: 08-28-2024 Throat culture Throat Culture [facility] Start: 08-28-2024 Bacteria identified in Throat by Aerobe culture [facility] Start: 08-24-2024 End: 08-24-2024 Patient encounter procedure 08/24/2024 1:15 PM EDT Office Visit Otolaryngology [address] [address] Joaquim Mann MD [address] [address] sore throat Otolaryngology Comment on above: sore throat Start: 08-21-2024 End: 08-21-2024 Patient encounter procedure 08/21/2024 1:30 PM EDT Office Visit Allergy [address] [place] [address] Angel Cisse MD [address] [place] [address] follow up Allergy Comment on above: follow up Start: 08-10-2024 End: 08-10-2024 Patient encounter procedure 08/10/2024 3:00 PM EDT OT/PT/Speech Visit Physical Therapy [address] [place] [address] [place] [address] [place] [address] M62.89 (ICD-10-CM) - Pelvic floor dysfunction Physical Therapy Comment on above: M62.89 (ICD-10-CM) - Pelvic floor dysfun ction Start: 08-03-2024 End: 08-03-2024 Patient encounter procedure 08/03/2024 3:00 PM EDT OT/PT/Speech Visit Physical Therapy [address] [place] [address] [place] [address] [place] [address] Pelvic floor tension [M62.89] Physical Therapy Comment on above: Pelvic floor tension [M62.89] Start: 07-27-2024 End: 07-27-2024 Patient encounter procedure 07/27/2024 3:00 PM EDT OT/PT/Speech Visit Physical Therapy [address] [place] [address] [place] [address] [place] [address] M62.89 (ICD-10-CM) - Pelvic floor dysfunction Physical Therapy Comment on above: M62.89 (ICD-10-CM) - Pelvic floor dysfun ction Start: 07-20-2024 End: 07-20-2024 Patient encounter procedure Gastroenterology Comment on above: follow up Start: 07-19-2024 Bacteria identified in Blood by Culture Blood Culture [facility] Start: 07-19-2024 [facility] Start: 07-16-2024 Chidi Craig virus capsid IgG Ab [Units/volume] in Serum [facility] Start: 07-16-2024 Chidi Craig virus early IgG Ab [Units/volume] in Serum [facility] Start: 07-16-2024 Streptococcal DNAse B [Units/volume] in [facility] Start: 07-16-2024 [facility] Start: 07-13-2024 End: 07-13-2024 Patient encounter procedure 07/13/2024 2:15 PM EST OT/PT/Speech Visit Physical Therapy [address] [address] [place] [address] [place] [address] M62.89 (ICD-10-CM) - Pelvic floor dysfunction Physical Therapy Comment on above: M62.89 (ICD-10-CM) - Pelvic floor dysfun ction Start: 07-10-2024 End: 07-10-2025 CBC W Auto Differential panel - Blood CBC and differential Lab Routine Other fatigue Expected: 07/10/2024 (Approximate), Expires: 07/10/2025 [facility] Work Phone: Comment on above: Expected: 07/10/2024 (Approximate), Expi res: 07/10/2025 Start: 07-10-2024 End: 10-10-2024 Comprehensive metabolic 2000 panel - Serum or Plasma Comprehensive metabolic panel Lab Routine Other fatigue Expected: 07/10/2024 (Approximate), Expires: 10/10/2024 [facility] Comment on above: Expected: 07/10/2024 (Approximate), Expi res: 10/10/2024 Start: 07-10-2024 End: 07-10-2025 PHARYNGITIS/LARYNGITIS (HTRX) PHARYNGITIS/LARYNGITIS (HTRX) Lab Routine Strep throat Expected: 07/10/2024 (Approximate), Expires: 07/10/2025 [facility] Comment on above: Expected: 07/10/2024 (Approximate), Expi res: 07/10/2025 Start: 07-06-2024 End: 07-06-2024 Patient encounter procedure 07/06/2024 10:15 AM EST Office Visit [facility] [address] [facility] [address] [place] [address] Trinity Monet MD [address] [facility] [address] [place] [address] [facility] Start: 07-05-2024 End: 07-05-2024 Urine culture [facility] Start: 07-05-2024 Bacteria identified in Urine by Culture Urine Culture [facility] Start: 06-29-2024 End: 06-29-2024 Patient encounter procedure 06/29/2024 2:15 PM EST OT/PT/Speech Visit Physical Therapy [address] [place] [address] [place] [address] [place] [address] M62.89 (ICD-10-CM) - Pelvic floor dysfunction Physical Therapy Comment on above: M62.89 (ICD-10-CM) - Pelvic floor dysfun ction Start: 06-28-2024 End: 06-28-2024 Patient encounter procedure [facility] Start: 06-27-2024 End: 06-27-2024 Patient encounter procedure [facility] Start: 06-25-2024 DIABETES SCREEN DIABETES SCREEN [facility] Start: 06-21-2024 End: 06-21-2024 Patient encounter procedure 06/21/2024 11:15 AM EST Office Visit Otolaryngology [address] [address] Joaquim Mann MD [address] [address] swollen glands/frequent strep throat Otolaryngology Comment on above: swollen glands/frequent strep throat Start: 06-15-2024 End: 06-15-2024 Patient encounter procedure 06/15/2024 11:45 AM EST OT/PT/Speech Visit Physical Therapy [address] [place] [address] [place] [address] [place] [address] M62.89 (ICD-10-CM) - Pelvic floor dysfunction Physical Therapy Comment on above: M62.89 (ICD-10-CM) - Pelvic floor dysfun ction Start: 06-15-2024 End: 06-15-2024 Patient encounter procedure 06/15/2024 9:15 AM EST Results Only [facility] Draw Station [address] [facility] [place] [phone] [facility] Draw Station Start: 06-13-2024 End: 06-13-2024 Patient encounter procedure 06/13/2024 10:45 AM EST [facility] [address] [place] [address] Paz Elliott DO [address] [place] [address] [facility] Start: 06-10-2024 Screening for malignant neoplasm of breast [facility] Start: 06-08-2024 End: 06-08-2025 Erythrocyte sedimentation rate Sedimentation Rate Lab Routine Palpitations Sensation of chest pressure Shortness of breath Expected: 06/08/2024 (Approximate), Expires: 06/08/2025 [facility] Work Phone: Comment on above: Expected: 06/08/2024 (Approximate), Expi res: 06/08/2025 Start: 06-08-2024 End: 06-08-2025 Fibrin D-dimer FEU [Mass/volume] in Platelet poor plasma D-dimer, VTE Exclusion Lab Routine Palpitations Sensation of chest pressure Shortness of breath Expected: 06/08/2024 (Approximate), Expires: 06/08/2025 [facility] Work Phone: Comment on above: Expected: 06/08/2024 (Approximate), Expi res: 06/08/2025 Start: 06-08-2024 End: 06-08-2025 Natriuretic peptide B [Mass/volume] in Blood B-Type Natriuretic Peptide Lab Routine Sensation of chest pressure Shortness of breath Expected: 06/08/2024 (Approximate), Expires: 06/08/2025 [facility] Service Area Work Phone: Comment on above: Expected: 06/08/2024 (Approximate), Expi res: 06/08/2025 Start: 06-08-2024 End: 06-08-2025 NM Heart Perfusion W stress and W radionuclide IV Nuclear Stress Test Cardiac Nuclear Medicine Routine Palpitations Sensation of chest pressure Shortness of breath Expected: 06/08/2024 (Approximate), Expires: 06/08/2025 [facility] Work Phone: Comment on above: Expected: 06/08/2024 (Approximate), Expi res: 06/08/2025 Start: 06-08-2024 End: 06-08-2024 Patient encounter procedure [facility] Comment on above: H/O of stomach cancer Family history col on, and renal cancer Start: 06-05-2024 Hemoglobin A1c measurement Diabetes: Hemoglobin A1C [facility] Start: 06-01-2024 End: 06-01-2024 Patient encounter procedure 06/01/2024 2:15 PM EST OT/PT/Speech Visit Physical Therapy [address] [address] [place] [address] [place] [address] M62.89 (ICD-10-CM) - Pelvic floor dysfunction Physical Therapy Comment on above: M62.89 (ICD-10-CM) - Pelvic floor dysfun ction Start: 05-29-2024 End: 05-29-2024 ambulatory 05/29/2024 9:00 AM EST OT/PT/Speech Visit Physical Therapy [address] [address] Danica Jackson, PT [address] [place] [address] Not sure Physical Therapy Comment on above: Not sure Start: 05-29-2024 End: 05-29-2024 Patient encounter procedure 05/29/2024 8:50 AM EST Office Visit Cardiology [address] [place], [place] [id number] Echo Cardiology Comment on above: Echo Start: 05-23-2024 Throat culture Throat Culture [facility] Start: 05-15-2024 End: 08-14-2024 ALTERNATIVE COMPLEMENT PATHWAY ACTIVITY (AH50) [facility] Comment on above: Expected: 05/15/2024, Expires: Start: 05-15-2024 End: 08-14-2024 C1Q COMPLEMENT PROT [facility] Comment on above: Expected: 05/15/2024, Expires: Start: 05-15-2024 End: 08-14-2024 Complement C1 esterase inhibitor [Mass/volume] in Serum or Plasma [facility] Comment on above: Expected: 05/15/2024, Expires: Start: 05-15-2024 End: 08-14-2024 Complement C1 esterase inhibitor.functional/Com plement C1 esterase inhibitor.total in Serum or Plasma [facility] Work Phone: Comment on above: Expected: 05/15/2024, Expires: Start: 05-15-2024 End: 08-14-2024 Complement C4 [Mass/volume] in Serum or Plasma [facility] [facility] Comment on above: Expected: 05/15/2024, Expires: Start: 05-15-2024 End: 08-14-2024 HUMORAL IMMUNITY PANEL [facility] Comment on above: Expected: 05/15/2024, Expires: Start: 05-15-2024 End: 08-14-2024 IGG SUBCLASSES BLD [facility] Comment on above: Expected: 05/15/2024, Expires: Start: 05-15-2024 End: 08-14-2024 Immunodeficiency panel - Blood by Flow cytometry (FC) [facility] Comment on above: Expected: 05/15/2024, Expires: Start: 05-15-2024 End: 05-15-2024 Patient encounter procedure 05/15/2024 2:00 PM EST Office Visit Allergy [address] [place] [address] Angel Cisse MD [address] [place] [address] I'm sick all the time Allergy Comment on above: I'm sick all the time Start: 05-15-2024 End: 08-14-2024 TRYPTASE BLOOD [facility] Comment on above: Expected: 05/15/2024, Expires: Start: 05-11-2024 End: 05-11-2024 Patient encounter procedure 05/11/2024 1:15 PM EST OT/PT/Speech Visit Physical Therapy [address] [place] [address] [place] [address] [place] [address] Pelvic floor dysfunction [M62.89] Physical Therapy Comment on above: Pelvic floor dysfunction [M62.89] Start: 04-30-2024 Influenza vaccination Influenza Vaccine (#1) [facility] Comment on above: Postponed from 01/08/2024 (Patient Refus ed) Start: 04-27-2024 End: 07-27-2024 ARMANI BY IFA WITH REFLEX [facility] Work Phone: Comment on above: Expected: 04/27/2024, Expires: Start: 04-27-2024 End: 07-27-2024 Cyclic citrullinated peptide IgG Ab [Units/volume] in Serum or Plasma [facility] Comment on above: Expected: 04/27/2024, Expires: Start: 04-27-2024 End: 04-27-2024 Patient encounter procedure 04/27/2024 1:00 PM EST Office Visit Rheumatology [address] [address] Linda Valero MD [address] [place] [address] Polyarthralgia Rheumatology Comment on above: Polyarthralgia Start: 04-20-2024 End: 04-20-2024 Patient encounter procedure 04/20/2024 8:00 AM EST Office Visit [facility] IM [address] [place] [address] Trey Brown DO [address] [place] [address] [facility] Start: 04-16-2024 Patient referral [facility] Work Phone: Start: 03-29-2024 End: 03-29-2024 Patient encounter procedure [facility] Endoscopy [facility] Start: 03-27-2024 End: 03-27-2024 Patient encounter procedure 03/27/2024 1:40 PM EST Office Visit [facility] [address] [place] [address] Karla Wallace APRN-PHLEBOTOMY SERVICES TECHNICIAN [address] [place] [address] Arrived [facility] Comment on above: Arrived Start: 03-21-2024 End: 03-21-2024 ambulatory Physical Therapy Comment on above: Not sure Start: 03-20-2024 End: 03-20-2024 Anesthesia consultation 03/20/2024 11:59 PM EST Anesthesia Event [facility] [address] [place] [address] Rio Bunn APRN.CRNA [facility] Start: 03-20-2024 End: 06-19-2024 NVTA INVITAE HEREDITARY DIAGNOSTIC CANCER PANEL [facility] HEREDITARY DIAGNOSTIC CANCER PANEL Lab Routine Family history of colon cancer Family history of kidney cancer Malignant carcinoid tumor of duodenum (HCC) Expected: 03/20/2024, Expires: 06/19/2024 [facility] Work Phone: Comment on above: Expected: 03/20/2024, Expires: Start: 03-20-2024 End: 03-20-2024 Patient encounter procedure 03/20/2024 9:30 AM EST Office Visit Colorectal Surgery [address] [place], [place] [id number] Sol Nuñez APRN.PHLEBOTOMY SERVICES TECHNICIAN [address] [place] [address] Abdominal bloating [R14.0] Colorectal Surgery Comment on above: Abdominal bloating [R14.0] Start: 03-20-2024 End: 03-20-2024 Admission to same day surgery center 03/20/2024 9:00 AM EST Procedure Colorectal Surgery [address] [place], [place] [id number] Sol Nuñez APRN.PHLEBOTOMY SERVICES TECHNICIAN [address] [place] [address] Abdominal bloating [R14.0] Colorectal Surgery Comment on above: Abdominal bloating [R14.0] Start: 03-08-2024 End: 06-08-2024 MR Cervical spine WO contrast MR cervical spine wo contrast Imaging Routine Cervical radiculopathy Expected: 03/08/2024 (Approximate), Expires: 06/08/2024 [facility] Work Phone: Comment on above: Expected: 03/08/2024 (Approximate), Expi res: 06/08/2024 Start: 02-23-2024 End: 02-23-2024 Nursing evaluation of patient and report 02/23/2024 11:00 AM EDT Nurse Visit [facility] Gastroenterology [facility] [address] [address] [place] [address] [facility] Nurse [facility] [address] [facility] [address] [place], [place] [id number] Abdominal bloating [R14.0] [facility] Comment on above: Abdominal bloating [R14.0] Start: 02-09-2024 End: 02-09-2024 Patient encounter procedure 02/09/2024 9:15 AM EDT Office Visit [facility] [address] [place] [address] Lashawn Perez MD [address] [place] [address] [facility] Start: 02-07-2024 End: 02-07-2024 Patient encounter procedure 02/07/2024 10:30 AM EDT Office Visit Colorectal Surgery [address] [place] [address] Sol Nuñez APRN.PHLEBOTOMY SERVICES TECHNICIAN [address] [place] [address] Abdominal bloating [R14.0] Colorectal Surgery Comment on above: Abdominal bloating [R14.0] Start: 02-07-2024 End: 02-07-2024 Admission to same day surgery center 02/07/2024 10:00 AM EDT Procedure Colorectal Surgery [address] [place] [address] Sol Nuñez APRN.PHLEBOTOMY SERVICES TECHNICIAN [address] [place] [address] Abdominal bloating [R14.0] Colorectal Surgery Comment on above: Abdominal bloating [R14.0] Start: 01-27-2024 End: 01-27-2024 Patient encounter procedure 01/27/2024 9:20 AM EDT Office Visit Gastroenterology [address] [place] [address] Naty Booker Jr., DO [address] [place] [address] EGD and colonoscopy Gastroenterology Comment on above: EGD and colonoscopy Start: 01-23-2024 CT Abdomen and Pelvis WO contrast [facility] Start: 01-23-2024 CT of abdomen and pelvis without contrast CT abdomen pelvis wo con [facility] Start: 01-21-2024 Medicare Annual Wellness (AWV) Medicare Annual Wellness (AWV) [facility] Start: 01-08-2024 Covid-19 Vaccine ( season) Covid-19 Vaccine () [facility] Start: 01-08-2024 Covid-19 Vaccine () Covid-19 Vaccine () [facility] Start: 01-08-2024 Influenza vaccination [facility] Start: 12-09-2023 End: 12-09-2023 Patient encounter procedure 12/09/2023 8:40 AM EDT Office Visit Gastroenterology [address] [place], [place] [id number] Lala Carbajal MD, PhD [address] [place] [address] IBS Gastroenterology Comment on above: IBS Start: 12-08-2023 End: 12-08-2023 Follow-up encounter 12/08/2023 3:15 PM EDT Visit (SP) Office Hematology/Oncology [address] [facility] [facility] [place] [address] Annemarie Judd MD [address] [place] [address] scan Hematology/Oncology Comment on above: follow up after ct scan Start: 11-30-2023 End: 11-30-2023 Patient encounter procedure 11/30/2023 10:15 AM EDT Appointment Radiology [address] [place] [place] [address] ct chest, liver, pelvis and labs Radiology Pet CT Comment on above: ct chest, liver, pelvis and labs Start: 11-04-2023 End: 11-04-2023 ambulatory 11/04/2023 8:00 AM EDT Results Only [facility] [address] [place] [place] [address] [facility] Start: 11-03-2023 End: 11-03-2023 Follow-up encounter 11/03/2023 10:15 AM EDT Visit (SP) Office Hematology/Oncology [address] [place] [place] [address] Annemarie Judd MD [address] [place] [place] [address] 6 month follow up lab Hematology/Oncology Comment on above: 6 month follow up lab Start: 11-03-2023 End: 11-03-2023 Patient encounter procedure 11/03/2023 10:00 AM EDT Office Visit [facility] [address] [place] [address] 6 month follow up lab [facility] Comment on above: 6 month follow up lab Start: 10-31-2023 End: 01-30-2024 CBC W Auto Differential panel - Blood COMPLETE BLOOD COUNT AND DIFFERENTIAL Lab Routine Malignant carcinoid tumor of duodenum (HCC) Expected: 10/31/2023 (Approximate), Expires: 01/30/2024 [facility] Comment on above: Expected: 10/31/2023 (Approximate), Expi res: 01/30/2024 Start: 10-31-2023 End: 01-30-2024 Comprehensive metabolic 2000 panel - Serum or Plasma COMPREHENSIVE METABOLIC PANEL Lab Routine Malignant carcinoid tumor of duodenum (HCC) Expected: 10/31/2023 (Approximate), Expires: 01/30/2024 [facility] Work Phone: Comment on above: Expected: 10/31/2023 (Approximate), Expi res: 01/30/2024 Start: 10-31-2023 End: 01-30-2024 Gastrin [Mass/volume] in Serum or Plasma GASTRIN BLD Lab Routine Malignant carcinoid tumor of duodenum (HCC) Expected: 10/31/2023 (Approximate), Expires: 01/30/2024 [facility] Comment on above: Expected: 10/31/2023 (Approximate), Expi res: 01/30/2024 Start: 10-31-2023 End: 01-30-2024 Vasoactive intestinal peptide [Mass/volume] in Serum or Plasma VIP Lab Routine Malignant carcinoid tumor of duodenum (HCC) Expected: 10/31/2023 (Approximate), Expires: 01/30/2024 [facility] Comment on above: Expected: 10/31/2023 (Approximate), Expi res: 01/30/2024 Start: 10-31-2023 End: 10-31-2023 Patient encounter procedure 10/31/2023 8:45 AM EDT Appointment Radiology Pet CT [address] [place] [address] CT LIVER & CHEST Radiology Pet CT Comment on above: CT LIVER & CHEST Start: 10-31-2023 End: 10-31-2023 ambulatory 10/31/2023 8:00 AM EDT Results Only [facility] [address] [place] [address] [facility] Start: 10-30-2023 End: 08-28-2024 CT Abdomen and Pelvis W contrast IV CT LIVER/PELVIS W IVCON Radiology Routine Malignant carcinoid tumor of duodenum (HCC) Expected: 10/30/2023 (Approximate), Expires: 08/28/2024 [facility] Work Phone: Comment on above: Expected: 10/30/2023 (Approximate), Expi res: 08/28/2024 Start: 10-30-2023 End: 08-28-2024 CT Chest W contrast IV CT CHEST W IVCON Radiology Routine Malignant carcinoid tumor of duodenum (HCC) Expected: 10/30/2023 (Approximate), Expires: 08/28/2024 [facility] Work Phone: Comment on above: Expected: 10/30/2023 (Approximate), Expi res: 08/28/2024 Start: 10-24-2023 End: 10-24-2023 Patient encounter procedure 10/24/2023 8:30 AM EDT Office Visit [facility] [address] [place] [id number] Trey Brown, DO [address] [place] [address] [facility] Start: 09-23-2023 End: 09-23-2023 Patient encounter procedure 09/23/2023 10:20 AM EDT Office Visit Gastroenterology [address] [place] [address] Naty Booker Jr., DO [address] [place] [address] EGD and colonoscopy Gastroenterology Comment on above: EGD and colonoscopy Start: 09-22-2023 IgA [Mass/volume] in Serum or Plasma [facility] Start: 09-22-2023 IgE [Units/volume] in Serum or Plasma [facility] Start: 09-22-2023 IgG [Mass/volume] in Serum or Plasma [facility] Start: 09-22-2023 IgM [Mass/volume] in Serum or Plasma [facility] Start: 09-22-2023 [facility] Start: 08-19-2023 End: 11-18-2023 Cortisol [Mass/volume] in Serum or Plasma --post dose dexamethasone CORTISOL SUPRES POST Lab Routine Weight gain Expected: 08/19/2023, Expires: 11/18/2023 [facility] Work Phone: Comment on above: Expected: 08/19/2023, Expires: Start: 08-19-2023 End: 11-18-2023 DEXAMETHASONE DEXAMETHASONE Lab Routine Weight gain Expected: 08/19/2023, Expires: 11/18/2023 [facility] Work Phone: Comment on above: Expected: 08/19/2023, Expires: Start: 08-13-2023 End: 07-29-2024 CBC W Auto Differential panel - Blood CBC + DIFF Lab Routine Malignant carcinoid tumor of duodenum (HCC) Expected: 08/13/2023 (Approximate), Expires: 07/29/2024 [facility] Work Phone: Comment on above: Expected: 08/13/2023 (Approximate), Expi res: 07/29/2024 Start: 08-13-2023 End: 11-12-2023 Chromogranin A [Mass/volume] in Serum or Plasma CHROMOGRANIN A Lab Routine Malignant carcinoid tumor of duodenum (HCC) Expected: 08/13/2023 (Approximate), Expires: 11/12/2023 [facility] Work Phone: Comment on above: Expected: 08/13/2023 (Approximate), Expi res: 11/12/2023 Start: 08-13-2023 End: 07-29-2024 Comprehensive metabolic 2000 panel - Serum or Plasma COMP METABOLIC PANEL Lab Routine Malignant carcinoid tumor of duodenum (HCC) Expected: 08/13/2023 (Approximate), Expires: 07/29/2024 [facility] Work Phone: Comment on above: Expected: 08/13/2023 (Approximate), Expi res: 07/29/2024 Start: 08-13-2023 End: 11-12-2023 Gastrin [Mass/volume] in Serum or Plasma GASTRIN BLD Lab Routine Malignant carcinoid tumor of duodenum (HCC) Expected: 08/13/2023 (Approximate), Expires: 11/12/2023 [facility] Work Phone: Comment on above: Expected: 08/13/2023 (Approximate), Expi res: 11/12/2023 Start: 08-13-2023 End: 11-12-2023 Serotonin [Mass/volume] in Serum SEROTONIN BLD Lab Routine Malignant carcinoid tumor of duodenum (HCC) Expected: 08/13/2023 (Approximate), Expires: 11/12/2023 [facility] Work Phone: Comment on above: Expected: 08/13/2023 (Approximate), Expi res: 11/12/2023 Start: 08-13-2023 End: 11-12-2023 Vasoactive intestinal peptide [Mass/volume] in Serum or Plasma VIP Lab Routine Malignant carcinoid tumor of duodenum (HCC) Expected: 08/13/2023 (Approximate), Expires: 11/12/2023 [facility] Work Phone: Comment on above: Expected: 08/13/2023 (Approximate), Expi res: 11/12/2023 Start: 08-09-2023 [facility] Start: 06-16-2023 Urine screening for protein Diabetes: Urine Protein Screening [facility] Start: 04-27-2023 [facility] Start: 04-21-2023 Hemoglobin A1c measurement Diabetes: Hemoglobin A1C [facility] Start: 03-21-2023 End: 04-12-2024 Ct abdomen & pelvis w/contrast material CT ABD/PEL W IVCON Radiology Routine Malignant carcinoid tumor of duodenum (HCC) Expected: 03/21/2023 (Approximate), Expires: 04/12/2024 [facility] Work Phone: Comment on above: Expected: 03/21/2023 (Approximate), Expi res: 04/12/2024 Start: 01-14-2023 FUV, Provider: Susana Floyd, Status: Pen, Time: 3:40 PM FUV, Provider: Susana Floyd, Status: Pen, Time: 3:40 PM [facility] [address] DO Work Phone: Start: 01-14-2023 Patient encounter procedure FUVPACEMKR, Provider: [facility],EMCPAC[facility], Status: Pen, Time: 2:40 PM -[facility] [address] DO Work Phone: Start: 01-07-2023 Covid-19 Vaccine ( season) Covid-19 Vaccine () [facility] Start: 01-07-2023 Influenza vaccination [facility] Start: 11-25-2022 CT Abdomen and Pelvis WO contrast [facility] Start: 11-25-2022 CT of abdomen and pelvis without contrast CT abdomen pelvis wo con [facility] Start: 10-22-2022 FUV, Provider: Susana Floyd, Status: Pen, Time: 4:00 PM FUV, Provider: Susana Floyd, Status: Pen, Time: 4:00 PM -[facility] [address] DO Work Phone: Start: 09-05-2022 End: 03-08-2023 CBC W Auto Differential panel - Blood CBC + DIFF Lab Routine Malignant carcinoid tumor of foregut (HCC) Expected: 09/05/2022 (Approximate), Expires: 03/08/2023 [facility] Work Phone: Comment on above: Expected: 09/05/2022 (Approximate), Expi res: 03/08/2023 Start: 09-05-2022 End: 11-05-2022 Chromogranin A [Mass/volume] in Serum or Plasma CHROMOGRANIN A Lab Routine Malignant carcinoid tumor of foregut (HCC) Expected: 09/05/2022 (Approximate), Expires: 11/05/2022 [facility] Work Phone: Comment on above: Expected: 09/05/2022 (Approximate), Expi res: 11/05/2022 Start: 09-05-2022 End: 03-08-2023 Comprehensive metabolic 2000 panel - Serum or Plasma COMP METABOLIC PANEL Lab Routine Malignant carcinoid tumor of foregut (HCC) Expected: 09/05/2022 (Approximate), Expires: 03/08/2023 [facility] Work Phone: Comment on above: Expected: 09/05/2022 (Approximate), Expi res: 03/08/2023 Start: 09-05-2022 End: 11-05-2022 Gastrin [Mass/volume] in Serum or Plasma GASTRIN BLD Lab Routine Malignant carcinoid tumor of foregut (HCC) Expected: 09/05/2022 (Approximate), Expires: 11/05/2022 [facility] Work Phone: Comment on above: Expected: 09/05/2022 (Approximate), Expi res: 11/05/2022 Start: 09-05-2022 End: 11-05-2022 Vasoactive intestinal peptide [Mass/volume] in Serum or Plasma VIP Lab Routine Malignant carcinoid tumor of foregut (HCC) Expected: 09/05/2022 (Approximate), Expires: 11/05/2022 [facility] Work Phone: Comment on above: Expected: 09/05/2022 (Approximate), Expi res: 11/05/2022 Start: 07-15-2022 FUV, Provider: Marita Arredondo, Status: Pen, Time: 10:40 AM FUV, Provider: Marita Arredondo, Status: Pen, Time: 10:40 AM [facility] 250 DO Work Phone: Start: 05-09-2022 DEPRESSION ASSESSMENT DEPRESSION ASSESSMENT [facility] Start: 04-27-2022 FUV, Provider: Susana Floyd, Status: Pen, Time: 10:40 AM FUV, Provider: Susana Floyd, Status: Pen, Time: 10:40 AM [facility] [address] DO Work Phone: Start: 04-20-2022 FUV, Provider: Susana Floyd, Status: Pen, Time: 4:00 PM FUV, Provider: Susana Floyd, Status: Pen, Time: 4:00 PM [facility] [address] DO Work Phone: Start: 04-20-2022 Patient encounter procedure FUVPACEMKR, Provider: [facility],EMCPACEMKR, Status: Pen, Time: 3:00 PM [facility] 250 DO Work Phone: Start: 01-07-2022 Influenza vaccination INFLUENZA (#1) [facility] Start: 12-31-2021 FUV, Provider: Marita Arredondo, Status: Pen, Time: 9:00 AM FUV, Provider: Marita Arredondo, Status: Pen, Time: 9:00 AM [facility] 250 DO Work Phone: Start: 12-14-2021 End: 12-14-2021 Patient encounter procedure Departed [facility] Start: 12-09-2021 Plain chest X-ray XR chest 2V* [facility] Start: 12-09-2021 End: 12-09-2021 Emergency department patient visit Departed [facility]gency [facility] Start: 12-09-2021 End: 12-09-2021 Patient encounter procedure [facility] Start: 11-05-2021 [facility] IM[facility], Provider: [facility] [employer] 5,[id number], Status: Pen, Time: 12:30 PM [facility] IMPLNT, Provider: EM [employer] 5,[id number], Status: Pen, Time: 12:30 PM [facility] [address] DO Work Phone: Start: 11-05-2021 EP STUDY, Provider: EM [employer] TRIMMER 4,[id number], Status: Pen, Time: 10:30 AM EP STUDY, Provider: EM [employer] TR[employer]MER 4,[id number], Status: Pen, Time: 10:30 AM [facility] [address] DO Work Phone: Start: 11-05-2021 [facility], Provider: Susana Floyd, Status: Pen, Time: 10:00 AM [facility], Provider: Susana Floyd, Status: Pen, Time: 10:00 AM [facility] 3 DO Work Phone: Start: 10-20-2021 FUV, Provider: Susana Floyd, Status: Pen, Time: 10:20 AM FU, Provider: Susaan Floyd, Status: Pen, Time: 10:20 AM [facility] 320 DO Work Phone: Start: 08-14-2021 End: 08-11-2022 CBC W Auto Differential panel - Blood CBC + DIFF Lab Routine Duodenal carcinoid syndrome (HCC) Expected: 08/14/2021 (Approximate), Expires: 08/11/2022 [facility] Work Phone: Comment on above: Expected: 08/14/2021 (Approximate), Expi res: 08/11/2022 Start: 08-14-2021 End: 10-14-2021 Chromogranin A [Mass/volume] in Serum or Plasma CHROMOGRANIN A Lab Routine Duodenal carcinoid syndrome (HCC) Expected: 08/14/2021 (Approximate), Expires: 10/14/2021 [facility] Work Phone: Comment on above: Expected: 08/14/2021 (Approximate), Expi res: 10/14/2021 Start: 08-14-2021 End: 08-11-2022 Comprehensive metabolic 2000 panel - Serum or Plasma COMP METABOLIC PANEL Lab Routine Duodenal carcinoid syndrome (HCC) Expected: 08/14/2021 (Approximate), Expires: 08/11/2022 [facility] Work Phone: Comment on above: Expected: 08/14/2021 (Approximate), Expi res: 08/11/2022 Start: 06-30-2021 Adult depression screening assessment DEPRESSION SCREENING [facility] Start: 06-23-2021 FUV, Provider: Marita Arredondo, Status: Pen, Time: 3:30 PM FUV, Provider: Marita Arredondo, Status: Travis, Time: 3:30 PM [facility] [address] DO Work Phone: Start: 05-09-2021 DEPRESSION ASSESSMENT DEPRESSION ASSESSMENT [facility] Start: 11-20-2020 COVID-19 VACCINE (3 - Booster for Moderna series) COVID-19 VACCINE (3 - Booster for Moderna series) [facility] Start: 08-18-2020 COVID-19 VACCINE (3 - Booster for Moderna series) COVID-19 VACCINE (3 - Booster for Moderna series) [facility] Start: 08-18-2020 COVID-19 VACCINE (3 - Moderna series) COVID-19 VACCINE (3 - Moderna series) [facility] Start: 06-27-2019 Glaucoma screening Diabetes: Retinopathy Screening [facility] Start: 03-06-2019 MMR Vaccines (1 of 1 - Standard series) MMR Vaccines (1 of 1 - Standard series) [facility] Start: 2018 Pneumococcal vaccination Pneumococcal Vaccine (1 of 1 - PCV) [facility] Start: 2018 Pneumococcal Vaccine: 50+ (1 of 1 - PCV) Pneumococcal Vaccine: 50+ (1 of 1 - PCV) [facility] Start: 2018 SHINGRIX VACCINE (1 of 2) SHINGRIX VACCINE (1 of 2) [facility] Start: 2018 Zoster Vaccines (1 of 2) Zoster Vaccines (1 of 2) [facility] Start: 2013 COLOGUARD (FIT-DNA) COLOGUARD (FIT-DNA) [facility] Start: 2013 Colonoscopy COLONOSCOPY [facility] Start: 2013 COLORECTAL CANCER SCREENING COLORECTAL CANCER SCREENING [facility] Start: [address] COLONOGRAPHY [facility] Start: 2013 FECAL OCCULT BLOOD FECAL OCCULT BLOOD [facility] Start: 2013 LIPID SCREEN LIPID SCREEN [facility] Start: 2013 Screening for malignant neoplasm of colon [facility] Start: 2013 SIGMOIDOSCOPY SIGMOIDOSCOPY [facility] Start: 2008 Mammography [facility] Start: 2008 Screening for malignant neoplasm of breast Mammogram Screening [facility] Start: 1998 HPV TESTING HPV TESTING [facility] Start: 1998 Screening for malignant neoplasm of cervix HPV Testing [facility] Start: 1990 DTaP/Tdap/Td Vaccines (1 - Tdap) DTaP/Tdap/Td Vaccines (1 - Tdap) [facility] Start: 1989 PAP TESTING PAP TESTING [facility] Start: 1989 Screening for malignant neoplasm of cervix [facility] Start: 1987 Hepatitis B Vaccine (1 of 3 - 19+ 3-dose series) Hepatitis B Vaccine (1 of 3 - 19+ 3-dose series) [facility] Start: 1987 Hepatitis B Vaccines (1 of 3 - 19+ 3-dose series) Hepatitis B Vaccines (1 of 3 - 19+ 3-dose series) [facility] Start: 1987 Urine microalbumin profile [facility] Start: 1986 Anxiety Screening Anxiety Screening [facility] Start: 1986 Diabetes mellitus screening Diabetes Screening [facility] Start: 1986 HEPATITIS C SCREENING HEPATITIS C SCREENING [facility] Start: 1986 Hepatitis C screening Hepatitis C Screening [facility] Start: 1986 HIV SCREENING HIV SCREENING [facility] Start: 1986 HIV screening HIV Screening [facility] Start: 1974 PNEUMOCOCCAL (1 - PCV) PNEUMOCOCCAL (1 - PCV) [facility] Start: 1968 Annual wellness visit Welcome to Medicare Visit [facility] Start: 1968 HEPATITIS B (1 of 3 - 3-dose series) HEPATITIS B (1 of 3 - 3-dose series) [facility] Start: 1968 Hepatitis B Vaccine (1 of 3 - 3-dose series) Hepatitis B Vaccine (1 of 3 - 3-dose series) [facility] Start: 1968 HIV screening HIV Screening [facility] Start: 1968 Screening for malignant neoplasm of colon [facility] Adenosine monophosphate.cyclic [Moles/volume] in Serum or Plasma [facility] End: 12-08-2024 ADULT [place] [facility]OM[facility] ADULT [place] ANORECTAL MANOMETRY Endoscopy Routine Abdominal bloating FH: colon cancer 1 Occurrences starting 12/09/2023 until 12/08/2024 [facility] Comment on above: 1 Occurrences starting 12/09/2023 until 12/08/2024 Bacteria identified in Throat by Aerobe culture [facility] Bacteria identified in Throat by Aerobe culture [facility] Breath hydrogen/meth ane test BREATH TEST - LACTULOSE Procedures Routine Abdominal bloating Small intestinal bacterial overgrowth (SIBO) 12/27/2023 8:30 AM EDT [facility] Work Phone: End: 12-08-2024 BREATH TEST GLUCOSE BREATH TEST GLUCOSE Endoscopy Routine Abdominal bloating LLQ pain 1 Occurrences starting 12/09/2023 until 12/08/2024 [facility] Comment on above: 1 Occurrences starting 12/09/2023 until 12/08/2024 End: 12-07-2024 Calprotectin [Mass/mass] in Stool CALPROTECTIN,FECAL Lab Routine LLQ pain 1 Occurrences starting 12/09/2023 until 12/07/2024 [facility] Work Phone: Comment on above: 1 Occurrences starting 12/09/2023 until 12/07/2024 End: 12-04-2023 COLONOSCOPY DIAGNOSTIC COLONOSCOPY DIAGNOSTIC Endoscopy Routine Generalized abdominal pain Family history of colon cancer Change in bowel habits 1 Occurrences starting 12/03/2022 until 12/04/2023 [facility] Work Phone: Comment on above: 1 Occurrences starting 12/03/2022 until 12/04/2023 CT Chest WO contrast [facility] End: 05-19-2024 Ct thorax w/o contrast material CT CHEST WO IVCON Radiology Routine Malignant carcinoid tumor of duodenum (HCC) 1 Occurrences starting 04/20/2023 until 05/19/2024 [facility] Work Phone: Comment on above: 1 Occurrences starting 04/20/2023 until 05/19/2024 ECG 12 Lead ECG 12 Lead ECG Routine Palpitations Sensation of chest pressure Shortness of breath 06/08/2024 11:15 AM EST [facility] Work Phone: End: 04-27-2025 Echocardiography ECHO Cardiology Routine Abdominal swelling 1 Occurrences starting 04/27/2024 until 04/27/2025 [facility] Comment on above: 1 Occurrences starting 04/27/2024 until 04/27/2025 End: 02-23-2023 EGD DIAGNOSTIC EGD DIAGNOSTIC Endoscopy Routine Generalized abdominal pain Gastroenteritis Benign carcinoid tumor of stomach 1 Occurrences starting 02/23/2022 until 02/23/2023 [facility] Work Phone: Comment on above: 1 Occurrences starting 02/23/2022 until 02/23/2023 End: 07-23-2023 EGD DIAGNOSTIC EGD DIAGNOSTIC Endoscopy Routine Chronic gastric ulcer without hemorrhage and without perforation 1 Occurrences starting 07/22/2022 until 07/23/2023 [facility] Work Phone: Comment on above: 1 Occurrences starting 07/22/2022 until 07/23/2023 End: 12-04-2023 EGD DIAGNOSTIC EGD DIAGNOSTIC Endoscopy Routine Generalized abdominal pain Gastroesophageal reflux disease, unspecified whether esophagitis present History of benign carcinoid neoplasm of gastrointestinal tract 1 Occurrences starting 12/03/2022 until 12/04/2023 [facility] Work Phone: Comment on above: 1 Occurrences starting 12/03/2022 until 12/04/2023 End: 03-16-2025 EGD DIAGNOSTIC EGD DIAGNOSTIC Endoscopy Routine GI carcinoid tumor 1 Occurrences starting 03/16/2024 until 03/16/2025 [facility] Comment on above: 1 Occurrences starting 03/16/2024 until 03/16/2025 FAT, FECAL QUAL FAT, FECAL QUAL Lab Routine Abdominal bloating FH: colon cancer Ordered: 12/09/2023 [facility] Comment on above: Ordered: 12/09/2023 End: 03-16-2025 Flexible sigmoidoscopy study COLONOSCOPY DIAGNOSTIC Endoscopy Routine Diarrhea, unspecified type Family history of colon cancer 1 Occurrences starting 03/16/2024 until 03/16/2025 [facility] Comment on above: 1 Occurrences starting 03/16/2024 until 03/16/2025 Homogenous nuclear A b pattern [Titer] in Serum [facility] Nuclear Ab [Titer] i n Serum [facility] PANC ELASTASE, FECAL PANC ELASTA SE, FECAL Lab Routine Abdominal bloating Ordered: 12/09/2023 [facility] Comment on above: Ordered: 12/09/2023 Patient Education [facility] Work Phone: Patient referral [facility] Work Phone: End: 08-28-2024 PET+CT Brain for tau protein NM PET/CT NEUROENDOCRINE WHOLE BODY IMAGING Radiology Routine Malignant carcinoid tumor of duodenum (HCC) 1 Occurrences starting 07/30/2023 until 08/28/2024 [facility] Work Phone: Comment on above: 1 Occurrences starting 07/30/2023 until 08/28/2024 End: 08-13-2023 Radiologic exam esophagus single contrast study XR ESOPHAGRAM Radiology Routine Gastroesophageal reflux disease, unspecified whether esophagitis present 1 Occurrences starting 07/14/2022 until 08/13/2023 [facility] Work Phone: Comment on above: 1 Occurrences starting 07/14/2022 until 08/13/2023 Rheumatoid factor [Units/volume] in Serum or Plasma [facility] SURGICAL PATHOLOGY [facility] Work Phone: Comment on above: Release Upon Ordering for 1 Occurrences starting 03/29/2024, 1 completed End: 11-24-2023 Us soft tissue head & neck real time imge docm US THYROID/PARATHYROID Radiology Routine 1 Occurrences starting 10/25/2022 until 11/24/2023 [facility] Work Phone: Comment on above: 1 Occurrences starting 10/25/2022 until 11/24/2023 End: 07-29-2024 US Thyroid gland US THYROID/PARATHYROID Radiology Routine Thyroid nodule 1 Occurrences starting 06/30/2023 until 07/29/2024 [facility] Work Phone: Comment on above: 1 Occurrences starting 06/30/2023 until 07/29/2024 US Thyroid gland US THYROID/PARA THYROID Radiology Routine Thyroid nodule 06/30/2023 10:30 AM EST [facility] Work Phone: End: 01-07-2025 XR Abdomen Supine and Upright XR ABDOMEN 1V SUPINE Radiology Routine LLQ pain Constipation, unspecified constipation type 1 Occurrences starting 12/09/2023 until 01/07/2025 [facility] Comment on above: 1 Occurrences starting 12/09/2023 until 01/07/2025 XR Cervical spine 2 or 3 Views XR cervical spine 2 or 3 views Imaging Routine Cervical radiculopathy 03/08/2024 3:39 PM EDT [facility] End: 08-13-2023 XR UPPER GI SINGLE CONTRAST XR UPPER GI SINGLE CONTRAST Radiology Routine Gastroesophageal reflux disease, unspecified whether esophagitis present 1 Occurrences starting 07/14/2022 until 08/13/2023 [facility] Work Phone: Comment on above: 1 Occurrences starting 07/14/2022 until 08/13/2023 [facility] Immunizations Immunization Date Immunization Notes Care Provider Fa jorden 02-13-2021 influenza nasal, unspecified formulation Naty Booker Jr., DO Work Phone: [facility] 02-13-2021 Influenza, injectabl e, Madin Ryder Canine Kidney, preservative free, quadrivalent Trey Brown Work Phone: [facility] 02-13-2021 influenza virus vacc ine, unspecified formulation Naty Booker Jr., DO Work Phone: [facility] 06-23-2020 Moderna COVID-19 Vac cine 100 MCG/0.5ML Intramuscular Suspension Trey Brown Work Phone: [facility] 05-27-2020 Moderna COVID-19 Vac cine 100 MCG/0.5ML Intramuscular Suspension Trey Gamaman Work Phone: [facility] 02-01-2020 influenza virus vacc ine, unspecified formulation HEATHERMEGAN SAMUEL [facility] 02-01-2020 Influenza, injectabl e, Madin Corinne Canine Kidney, preservative free, quadrivalent Trey Ab GamaStephanie Work Phone: [facility] 12-24-2019 influenza virus vacc ine, unspecified formulation HEATHER SAMUEL [facility] 12-24-2019 influenza, seasonal, injectable Trey Gamaman Work Phone: [facility] Work Phone: 02-06-2019 influenza virus vacc ine, live, attenuated, for intranasal use Valerie Stovall RN [facility] 01-19-2019 influenza virus vacc ine, unspecified formulation HEATHERMEGAN SAMUEL [facility] 01-19-2019 Influenza, injectabl e, Madin Corinne Canine Kidney, quadrivalent with preservative Carlene Mei RN [facility] 01-19-2019 influenza, injectabl e, madin corinne canine kidney, preservative free Trey A Stephanie Work Phone: [facility] [address] DO Work Phone: 03-08-2018 influenza virus vacc ine, unspecified formulation HEATHER SAMUEL [facility] 03-08-2018 Influenza, injectabl e, Madin Ryder Canine Kidney, quadrivalent with preservative Trey Gamaman Work Phone: [facility] 04-15-2017 influenza virus vacc ine, unspecified formulation HEATHER LIZZIE [facility] 04-15-2017 influenza, injectabl e, quadrivalent, preservative free Trey Brown Work Phone: [facility] Payers Date Payer Category Payer Self-pay [id number] 2019 Medicare HUMANA MEDICARE HUMANA MEDICARE PPO [id number] 2019-Present [id number] [place] [address] PPO [id number] 2019 Medicare [id number] 2019 Medicare (Managed Care) 1.2. [id number] 2019 Medicare [id number] 2.16.840.1.383719.19 1968 Unknown [id number] 2.16.840.1.792091.3.579.2.1 1968 Unknown [id number] 2.16.840.1.652433.3.579.2.1 1968 Unknown [id number] 2.16.840.1.627217.3.579.2.1 1968 Unknown [id number] 2.16.840.1.988172.3.579.2.1 1968 Unknown [id number] 2.16.840.1.151041.3.579.2.1 1968 Unknown [id number] 2.16.840.1.418458.3.579.2.1 1968 Unknown [id number] 2.16.840.1.941449.3.579.2.1 1968 Unknown [id number] 2.16.840.1.444145.3.579.2.1 068 1968 Unknown 2.16.840.1.142233.3.579.2.1 068 1968 Unknown [id number] 2.16.840.1.202837.3.579.2.1 068 1968 Unknown [id number] 2.16.840.1.042777.3.579.2.3 56 1968 Unknown [id number] 2.16.840.1.679126.3.579.2.3 56 1968 Unknown [id number] 2.16.840.1.193719.3.579.2.3 56 1968 Unknown [id number] 2.16.840.1.858173.3.579.2.3 56 1968 Unknown [id number] 2.16.840.1.597026.3.579.2.1 244 1968 Unknown [id number] 2.16.840.1.745366.3.579.2.1 259 1968 Unknown [id number] 2.16.840.1.291496.3.579.2.1 259 1968 Unknown [id number] 2.16.840.1.966658.3.579.2.1 259 1968 Unknown [id number] 2.16.840.1.867273.3.579.2.1 259 1968 Unknown [id number] 2.16.840.1.683590.3.579.2.1 259 1968 Unknown [id number] 2.16.840.1.643642.3.579.2.1 259 1968 Unknown [id number] 2.16.840.1.940368.3.579.2.1 259 1968 Unknown [id number] 2.16.840.1.405119.3.579.2.1 259 1968 Unknown [id number] 2.16.840.1.696193.3.579.2.1 259 1968 Unknown [id number] 2.16.840.1.606579.3.579.2.1 259 1968 Unknown [id number] 2.16.840.1.665667.3.579.2.1 259 1968 Unknown [id number] 2.16.840.1.791173.3.579.2.1 259 1968 Unknown [id number] 2.16.840.1.221113.3.579.2.1 259 1968 Unknown [id number] 2.16.840.1.358148.3.579.2.7 27 1968 Unknown [id number] 2.16.840.1.203348.3.579.2.7 27 1968 Unknown [id number] 2.16.840.1.550349.3.579.2.7 27 1968 Unknown [id number] 2.16.840.1.391169.3.579.2.7 27 1968 Unknown [id number] 2.16.840.1.848416.3.579.2.7 27 Medicaid [id number] Medicare [id number] Self-pay Self Pay Cosmeti c/Pain Mgmt [id number] Unknown [id number] Unknown Unknown [id number] 2.16.840.1.476564.3.579.2.5 31 Unknown [id number] 2.16.840.1.010421.3.579.2.5 31 Unknown [id number] 2.16.840.1.363711.3.579.2.5 31 Unknown [id number] 2.16.840.1.734640.3.579.2.5 31 Unknown [id number] 2.16.840.1.944685.3.579.2.5 31 Unknown [id number] 2.16.840.1.965191.3.579.2.5 31 Unknown [id number] 2.16.840.1.675315.3.579.2.5 31 Unknown [id number] 2.16.840.1.123545.3.579.2.5 31 Unknown [id number] 2.16.840.1.592857.3.579.2.5 31 Unknown [id number] 2.16.840.1.145633.3.579.2.5 31 Unknown [id number] 2.16.840.1.337673.3.579.2.5 31 Unknown [id number] 2.16.840.1.321955.3.579.2.5 31 Unknown [id number] 2.16.840.1.631800.3.579.2.5 31 Unknown [id number] 2.16.840.1.501937.3.579.2.5 31 Social History Date Type Detail Facility Tobacco smoking status DCIS Unknown if ever smoked [facility] Start: 1970 Sex Assigned At Female F [facility] Start: 10-25-2022 End: 10-19-2023 Caffeine use Caffeine use [facility] Comment on above: tea on occasional; Start: 01-07-2020 End: 02-23-2022 Tobacco smoking status NHIS Occasional tobacco smoker [facility] Start: 01-07-2020 End: 10-19-2023 Tobacco use and exposure Smokeless tobacco non-user [facility] Start: 06-25-2021 End: 02-25-2022 Alcohol intake Current drinker of alcohol (finding) [facility] Start: 1970 Sex Assigned At Not on file [facility] Start: 10-25-2022 End: 10-19-2023 Sex Assigned At [facility] Start: 11-28-2021 End: 10-19-2023 Tobacco smoking status NHIS Ex-smoker (finding) [facility] Start: 02-01-2022 End: 06-08-2024 Exposure to SARS-CoV-2 (event) Not sure [facility] Start: 05-09-1986 End: 11-25-2022 Tobacco smoking status NHIS Smoker (finding) [facility] Start: 07-30-2022 End: 08-22-2024 Alcohol intake Ex-drinker (finding) [facility] Start: 05-09-1986 End: 05-09-2022 History of tobacco use Cigarette Smoker [facility] History of tobacco use Passive smoker [facility] Adult Depression Screening Assessment 0 [facility] How often to you hav e a drink containing alcohol? Monthly or less [facility] How many standard drinks containing alcohol do you have on a typical day? 1 or 2 [facility] How often do you hav e 6 or more drinks on 1 occasion? Monthly [facility] Start: 01-11-2023 Alcohol Comment caggeine: occa sional cup of tea [facility] Start: 01-23-2024 End: 08-18-2024 Tobacco smoking status DCIS Never smoked tobacco (finding) [facility] How often to you hav e a drink containing alcohol? Never [facility] Start: 05-17-2024 End: 09-14-2024 Sex Female (finding) [facility] NEGATED: Highlighted row [facility] Goals Date Patient Goal Desired Activity /State Functional Status Date Assessment Result Facility 04-25-2024 Functional Status N/A [facility] 01-25-2024 Functional Status N/A [facility] Clinical Notes 03-31-2021 to 09-24-2024 Telephone Encounter - Kira Bran LPN - 09/24/2024 8:22 AM EDTTelephone Encounter - Kira Bran LPN - 09/24/2024 8:22 AM EDTTelephone Encounter - Marya Champion LPN - 08/16/2024 11:33 AM EDT Note Date & Type Note Facility 09-24-2024 Telephone encounter Note Pt requesting a refill on Adipex to [facility] 09-24-2024 Miscellaneous Notes Pt requesting a refill on Adipex to [facility] documented in this encounter [facility] 09-12-2024 Note Patient Education Urology Kidney Stones Kidney stones are rock-like masses that form inside of the kidneys. Kidneys are organs that make pee (urine). A kidney stone may move into other parts of the urinary tract, including: ??? The tubes that connect the kidneys to the bladder (ureters). ??? The bladder. ??? The tube that carries urine out of the body (urethra). Kidney stones can cause very bad pain and can block the flow of pee. The stone usually leaves your body through your pee. A doctor may need to take out the stone. What are the causes? Kidney stones may be caused by: ??? Too much calcium in the body. This may be caused by too much parathyroid hormone in the blood. ??? Uric acid crystals in the bladder. The body makes uric acid when you eat certain foods. ??? Narrowing of one or both of the ureters. ??? A kidney blockage that you were born with. ??? Past surgery on the kidney or the ureters. What increases the risk? You are more likely to develop this condition if: ??? You have had a kidney stone in the past. ??? Other people in your family have had kidney stones. ??? You do not drink enough water. ??? You eat a diet that is high in protein, salt (sodium), or sugar. ??? You are very overweight (obese). What are the signs or symptoms? Symptoms of a kidney stone may include: ??? Pain in the side of the belly, right below the ribs. Pain usually spreads to the groin. ??? Needing to pee often or right away. ??? Pain when peeing. ??? Blood in your pee. ??? Feeling like you may vomit (nauseous). ??? Vomiting. ??? Fever and chills. How is this treated? Treatment depends on the size, location, and makeup of the kidney stones. The stones will often pass out of the body when you pee. You may need to: ??? Drink more fluid to help pass the stone. ? In some cases, you may be given fluids through an IV tube at the hospital. ??? Take medicine for pain. ??? Change your diet to help keep kidney stones from coming back. Sometimes, you may need: ??? A procedure to break up kidney stones using a beam of light (laser) or shock waves. ??? Surgery to remove the kidney stones. Follow these instructions at home: Medicines ??? Take mulc-gqs-kfywaih and prescription medicines only as told by your doctor. ??? Ask your doctor if the medicine prescribed to you requires you to avoid driving or using machinery. Eating and drinking ??? Drink enough fluid to keep your pee pale yellow. ? You may be told to drink at least 8?10 glasses of water each day. This will help you pass the stone. ??? If told by your doctor, change your diet. You may be told to: ? Limit how much salt you eat. ? Eat more fruits and vegetables. ? Limit how much meat, poultry, fish, and eggs you eat. ??? Follow instructions from your doctor about what you may eat and drink. General instructions ??? Collect pee samples as told by your doctor. You may need to collect a pee sample: ? 24 hours after a stone comes out. ? 8?12 weeks after a stone comes out, and every 6?12 months after that. ??? Strain your pee every time you pee. Use the strainer that your doctor recommends. ??? Do not throw out the stone. Keep it so that it can be tested by your doctor. ??? Keep all follow-up visits. You may need X-rays and ultrasounds to make sure the stone has come out. How is this prevented? To prevent another kidney stone: ??? Drink enough fluid to keep your pee pale yellow. This is the best way to prevent kidney stones. ??? Eat healthy foods. ??? Avoid certain foods as told by your doctor. You may be told to eat less protein. ??? Stay at a healthy weight. Where to find more information ??? National Kidney Foundation (NKF): kidney.org ??? [employer] (UCF): urologyhealth.org Contact a doctor if: ??? You have pain that gets worse or does not get better with medicine. Get help right away if: ??? You have a fever or chills. ??? You get very bad pain. ??? You get new pain in your belly. ??? You faint. ??? You cannot pee. This information is not intended to replace advice given to you by your health care provider. Make sure you discuss any questions you have with your health care provider. Document Revised: 12/17/2022 Document Reviewed: 12/17/2022 [email or web address] Patient Education ? 2023 [employer]. [facility] 08-18-2024 Radiology Diagnostic study note [facility] Main [place] [address] [place] [address] CT Scan Report Signed Patient: Hank Liu MR#: [id number] : 1970 Acct:[id number] Age/Sex: 54 / F ADM Date: 5 Loc: ER Room: Type: [facility] ER Attending Dr: Copies to: Gisell Howard APRN~ Ordering Provider: Gisell Howard APRN Date of Service: 08/18/24 CT/CT abdomen pelvis wo con: pain CT Abdomen and Pelvis withoutcontrast TECHNIQUE: Axial imaging with 2-D reconstruction. . The CT exam was performed using one or more the following dose reduction techniques: Automated exposure control, adjustment of the MA and/or Kv according to patient size, or use of theiterative reconstruction technique. COMPARISON: 01/23/2024 History: Abdominal pain. Constipation. LIMITATIONS: None LOWER THORAX Unremarkable LIVER: Fatty hepatomegaly. GALLBLADDER: Cholecystectomy clips identified. BILE DUCTS: No dilatation SPLEEN: Unremarkable PANCREAS: Unremarkable ADRENAL GLANDS: Unremarkable KIDNEYS:Bilateral nephrolithiasis measuring up to 4 mm. No hydronephrosis. AORTA: No abdominal aortic aneurysm identified. RETROPERITONEUM: No significant retroperitoneal abnormalities identified. MESENTERY:Unremarkable SMALL BOWEL: The small bowel loops are nondistended. APPENDIX: The appendix is normal. COLON: Distal colonic diverticulosis. Constipation. URINARY BLADDER: Urinary bladder is unremarkable. REPRODUCTIVE SYSTEM: The uterus is absent. PNEUMOPERITONEUM: None PERITONEAL FLUID:None BONY STRUCTURES: Similar extensive lumbar degeneration. ABDOMINAL WALL: Unremarkable CT/CT abdomen pelvis wo con IMPRESSION: No acute findings. Constipation. Bilateral nephrolithiasis. No hydronephrosis. Impression dictated by: Trey Ford M.D.08/18/2024 1:54 PM Dictation Location: [facility] Transcribed By: [facility] 08/18/24 1354 Dictated By: Trey Ford DO 08/18/24 1350 Signed By: 08/18/24 1354 [facility] 08-16-2024 Telephone encounter Note Patient has been on antibiotics for a month for strep throat she now has a vaginal yeast infection., She request diflucan. If ok it is loaded [facility] 08-16-2024 Miscellaneous Notes Patient has been on antibiotics for a month for strep throat she now has a vaginal yeast infection., She request diflucan. If ok it is loaded documented in this encounter [facility] 07-27-2024 History of Presen t illness Narrative Program_ID:[id number] Access Code: [email or web address] URL: [email or web address] Date: 07-27-2024 Prepared By: Heather Jolly Program Notes Exercises - Abdominal Massage - 2-3 x daily - 7 x weekly - 1 sets - 10 reps - SMFR ball to hips and spine - 1 x daily - 7 x weekly - 1 sets - reps - Thoracic Spine Moblizations with Towel Roll - 1 x daily - 5 x weekly - 1 sets - reps - Cervical Extension AROM with Strap - 1 x daily - 5 x weekly - 1 sets - 5 reps - Seated Scapular Retraction - 1 x daily - 5 x weekly - 1 sets - 5 reps - Seated Trunk Rotation - 1 x daily - 5 x weekly - 1 sets - 5 reps - Seated Punches with Trunk Rotation - 1 x daily - 5 x weekly - 1 sets - 5 reps - Doorway Pec Stretch at 90 Degrees Abduction - 1 x daily - 5 x weekly - 1 sets - 5 reps - Seated Cervical Rotation AROM - 1 x daily - 5 x weekly - 1 sets - 5 reps - Crocodile breathing - 1 x daily - 7 x weekly - 1 sets - 1 reps - Prone abdominal massage with pilates ball - 1 x daily - 3 x weekly - 1 sets - 1 reps - Inverted breathing with and without blocks under knees - 1 x daily - 7 x weekly - 1 sets - 8 reps - hip crossbody stretch - 1 x daily - 5 x weekly - 1 sets - 3 reps - External Pelvic Floor Awareness - 1 x daily - 7 x weekly - 1 sets - 10 reps - Seated prayer stretch for back body expansion - 1 x daily - 7 x weekly - 1 sets - 10 reps Images from the original note were not included. Episode Visit Count: 3 Therapist That Will Accept/Oversee The Plan Of Care: Heather Jolly PT, DPT Start of Care Date: 05/11/24 Plan of Care Certification Date: 05/11/24 Next Certification Due Date: 08/09/24 REHABILITATION AND SPORTS THERAPY PHYSICAL THERAPY PROGRESS REPORT PLAN OF CARE UPDATE: Assessment: Hank Liu demonstrates good control of constipation. She is getting over significant illnesses and her spine is incredibly stiff so needed to focus on this today so to help with her functional mobility. Reviewed and added exercises to address. Also added manual stretching to assist mobility. Due to antibiotic use her bowels will likely need several months to normalize; will take time to see if gas concerns and pencil thin stools normalize. The patient will benefit from continued skilled therapy services to meet the updated goals for this plan of care as noted below. Goals updated on 07/27/2024. Goals for Episode of Care: established 05/11/24 BLADDER Patient reports NOCTURIA 0-1 times to demonstrate normalized bladder function. ONGOING BOWEL Patient reports increased ability to FULLY EMPTY bowels without straining at least 90% of the time to normalize bladder/bowel function. MET Patient reports having 1 bowel movements per day without use of bowel aids to demonstrate improved bowel function. MET LIFESTYLE Patient will report decreased pain rating by 2 points to meet minimal clinical important difference for numeric pain rating scale. ONGOING BREATHING Improve back and side body EXPANSION by 50% to improve diaphragm mobility. Patient reports ability to BREATHE INTO PELVIC FLOOR with exercises/function to improve PF/Julianne dynamics and decrease PF tension. ONGOING Patient displays improved range of motion, coordination, and muscle dynamics of Julianne as evidenced by the ability to inhale without PARADOXICAL CONTRACTION at least 100% of the time to normalize bladder/bowel function; reduce pelvic pain. TBD BIOMECHANICS AND PF MECHANICS Patient will be able to HIP HINGE to be able to demonstrate good glut eccentric strength/mobility for functional activities at a home and to decrease lumbar overuse/injury. NOT MET Patient will improve hip mobility to WNL so hips are able to better support the pelvic floor so to help decrease pelvic floor symptoms. Not tesed Patient will have FULL apical EXPANSION and posterior mediastinum expansion to improve diaphragm mechanics so to improve its biomechanical relationship with the pelvic floor. Not tesed Patient displays DECREASED MUSCLE SPASMS in PF MM's noted in evauation to allow for decreased pain levels, improved bladder/bowel function. TBD Planned Interventions, Frequency, and Duration: 1x every other week, 8 weeks Total Number of Visits Planned: 3 Patient to be seen for Therapeutic exercise (82944), Manual therapy (90655), Self-fpc management ([id number]), Patient/Family/Caregiver Education PLAN FOR NEXT VISIT: hip hinge; rocking horse post chain stretch; assess for dyssenergia; gentle core SUBJECTIVE: . Had strep 8x then mono. Then had burciaga virus. And norovirus. Will be on antibiotics for another month. Know she needs to slow down. Has concerns with gas. Body feels tired and ichy. Walked for an hour today. I feel good today Will ask her to massage abdomen when it feels tight. Sometimes pencil thin stool. Some R lower abdominal pressure- told she had UTI then told not by infectious disease- still present. Pain: Pain Pain Level: 9 Pain Location: Neck, Shoulder - Left, Shoulder - Right Description: Sore Post Treatment Pain Post Treatment Pain Level: Better ( I feel better ; pt moved with improved spinal mobility post session) PROMIS Scales 07/06/2024 06/08/2024 05/10/2024 Higher is Better Self-Eff Symptom - T Score 48 (Average) 46 (Average) 46 (Average) Self-Eff Symptom - Percentile 42 34 34 07/26/2024 06/22/2024 05/26/2024 Lower is Better Pain Interference - T Score 64 (moderate) 62 (moderate) 62 (moderate) Pain Interference - Percentile 8 12 12 T-scores: mean of general population = 50. 5 points is clinically meaningfully difference Percentiles provide an indication of how the patient's score ranks in relation to the general population. Higher percentile rankings indicate better function/quality of life. 50th percentile is the average of the general population and indicates half of respondents had a worse score. OBJECTIVE MEASURES WITH LEVEL OF FUNCTION: Cervical Spine ROM Cervical ROM : Limitation AROM Cervical Extension AROM: Major limitation Cervical Rotation Right AROM: Major limitation Cervical Rotation Left AROM: Major limitation Thoracic Spine AROM Thoracic Extension: Major limitation Pelvic Floor Bowel Movement Frequency: daily Bowel Movement Consistency ([place]) : 4: Like a sausage or snake, smooth and soft Lumbar Flexion: Major limitation Lumbar Extension: Major limitation TREATMENT: Therapeutic Exercise: 1: SMFR w tennis wellness trainer balls (cues for decreased ROM and slow speed d/t stiffness) 7: seated trunk rotation 5x 8: *cx extension w towel support 5x Skilled Intervention: Patient was educated in proper exercise technique and purpose for exercises. Reviewed and educated patient on additions/changes for home exercise program as above (*). Skilled judgment was used in selection of appropriate interventions. Provided written instruction for home exercise program to facilitate proper performance and compliance. Manual Therapy: 6: seated scap retraction w clinician OP 8x 7: seated thoracic ext w clinician OP 8x 8: seated pec stretch w clinician OP 8x Skilled Intervention: Manual skills to improve joint mobility, ROM, and decrease pain. Utilized anatomy knowledge of the therapist, and assessment of patient's response to intervention. Billing Therapeutic Exercise Treatment Minutes: 42 Manual TherapyTreatment Minutes: 10 Skilled Treatment Time Minutes (timed and untimed codes): 52 Total Session Time (minutes): 52 Session Start Time : 1509 Session Stop Time : 1601 Heather Jolyl PT documented in this encounter [facility] 07-27-2024 Note HNO ID: [id number] Author: HEATHER JOLLY PT Service: ? Author Type: Physical Therapist Type: Progress Notes Filed: 07/27/2024 17:25 Note Text: Episode Visit Count: 3 Therapist That Will Accept/Oversee The Plan Of Care: Heather Jolly PT, DPT Start of Care Date: 05/11/24 Plan of Care Certification Date: 05/11/24 Next Certification Due Date: 08/09/24 REHABILITATION AND SPORTS THERAPY PHYSICAL THERAPY PROGRESS REPORT PLAN OF CARE UPDATE: Assessment: Hank Liu demonstrates good control of constipation. She is getting over significant illnesses and her spine is incredibly stiff so needed to focus on this today so to help with her functional mobility. Reviewed and added exercises to address. Also added manual stretching to assist mobility. Due to antibiotic use her bowels will likely need several months to normalize; will take time to see if gas concerns and pencil thin stools normalize. The patient will benefit from continued skilled therapy services to meet the updated goals for this plan of care as noted below. Goals updated on 07/27/2024. Goals for Episode of Care: established 05/11/24 BLADDER Patient reports NOCTURIA 0-1 times to demonstrate normalized bladder function. ONGOING BOWEL Patient reports increased ability to FULLY EMPTY bowels without straining at least 90% of the time to normalize bladder/bowel function. MET Patient reports having 1 bowel movements per day without use of bowel aids to demonstrate improved bowel function. MET LIFESTYLE Patient will report decreased pain rating by 2 points to meet minimal clinical important difference for numeric pain rating scale. ONGOING BREATHING Improve back and side body EXPANSION by 50% to improve diaphragm mobility. Patient reports ability to BREATHE INTO PELVIC FLOOR with exercises/function to improve PF/Julianne dynamics and decrease PF tension. ONGOING Patient displays improved range of motion, coordination, and muscle dynamics of Julianne as evidenced by the ability to inhale without PARADOXICAL CONTRACTION at least 100% of the time to normalize bladder/bowel function; reduce pelvic pain. TBD BIOMECHANICS AND PF MECHANICS Patient will be able to HIP HINGE to be able to demonstrate good glut eccentric strength/mobility for functional activities at a home and to decrease lumbar overuse/injury. NOT MET Patient will improve hip mobility to WNL so hips are able to better support the pelvic floor so to help decrease pelvic floor symptoms. Not tesed Patient will have FULL apical EXPANSION and posterior mediastinum expansion to improve diaphragm mechanics so to improve its biomechanical relationship with the pelvic floor. Not tesed Patient displays DECREASED MUSCLE SPASMS in PF MM's noted in evauation to allow for decreased pain levels, improved bladder/bowel function. TBD Planned Interventions, Frequency, and Duration: 1x every other week, 8 weeks Total Number of Visits Planned: 3 Patient to be seen for Therapeutic exercise ([id number]), Manual therapy ([id number]), Self-fpc management ([id number]), Patient/Family/Caregiver Education PLAN FOR NEXT VISIT: hip hinge; rocking horse post chain stretch; assess for dyssenergia; gentle core SUBJECTIVE: . Had strep 8x then mono. Then had burciaga virus. And norovirus. Will be on antibiotics for another month. Know she needs to slow down. Has concerns with gas. Body feels tired and ichy. Walked for an hour today. I feel good today Will ask her to massage abdomen when it feels tight. Sometimes pencil thin stool. Some R lower abdominal pressure- told she had UTI then told not by infectious disease- still present. Pain: Pain Pain Level: 9 Pain Location: Neck, Shoulder - Left, Shoulder - Right Description: Sore Post Treatment Pain Post Treatment Pain Level: Better ( I feel better ; pt moved with improved spinal mobility post session) PROMIS Scales 07/06/2024 06/08/2024 05/10/2024 Higher is Better Self-Eff Symptom - T Score 48 (Average) 46 (Average) 46 (Average) Self-Eff Symptom - Percentile 42 34 34 07/26/2024 06/22/2024 05/26/2024 Lower is Better Pain Interference - T Score 64 (moderate) 62 (moderate) 62 (moderate) Pain Interference - Percentile 8 12 12 T-scores: mean of general population = 50. 5 points is clinically meaningfully difference Percentiles provide an indication of how the patient's score ranks in relation to the general population. Higher percentile rankings indicate better function/quality of life. 50th percentile is the average of the general population and indicates half of respondents had a worse score. OBJECTIVE MEASURES WITH LEVEL OF FUNCTION: Cervical Spine ROM Cervical ROM : Limitation AROM Cervical Extension AROM: Major limitation Cervical Rotation Right AROM: Major limitation Cervical Rotation Left AROM: Major limitation Thoracic Spine AROM Thoracic Extension: Major limitation Pelvic Floor Bowel (more content not included)... [facility] 07-10-2024 History of Presen t illness Narrative Images from the original note were not included. Subjective Patient ID: Hank Liu (: 1970) is a 54 y.o. female who presents for Sore Throat. HPI History of Present Illness The patient is a 58-year-old female who presents for evaluation of recurrent strep throat, urinary tract infection, and fatigue. She has been experiencing a persistent sore throat for several weeks, with a history of at least seven episodes of strep throat. She still has her tonsils. She was seen by Dr. Persaud, ENT through [facility] about a month ago, who advised against tonsillectomy due to her age. She has been on antibiotics intermittently for the past 7 to 8 months. She was tested for mono once. She was tested positive for strep on , 07/05/2024. She was prescribed Clindamycin by [facility]. She was previously treated with Augmentin. She reports feeling unwell overall and has been febrile. She has been advised to take probiotics in between antibiotics. She has been advised to take a few days off work to rest. She also reports a concurrent urinary tract infection (UTI), which she suspects may be related to the strep throat. She has been experiencing fevers and has been informed that her immune system is compromised. She was prescribed Macrobid by [facility]. She just received the call today with the culture results and started her Macrobid today. She has no history of C. difficile infection but recently recovered from a viral illness characterized by diarrhea and vomiting lasting four days. She also reports blisters on her buttocks and the roof of her mouth. She has been unwell since Thanksgiving, with her condition progressively worsening. She now experiences fever for several days following a strep infection, a new symptom for her. She also reports increased fatigue and weakness. She has been advised to undergo nuclear testing due to cardiac issues and is concerned about potential interactions with her current medications. Current Outpatient Medications Medication Instructions esomeprazole (NEXIUM) 40 mg, Oral, 2 times daily, Do not open capsule. hyoscyamine ER (LEVBID) 375 mcg, Oral, 2 times daily ibuprofen 800 mg, 3 times daily ondansetron ODT (ZOFRAN-ODT) 4 mg, Oral, Every 8 hours PRN rOPINIRole (REQUIP) 0.5 mg, Oral, Nightly rosuvastatin (CRESTOR) 40 mg, Oral, Nightly Senexon-S 8.6-50 MG tablet 2 tablets, Nightly traZODone (DESYREL) 100 mg, Oral, Nightly Allergies Allergen Reactions Iodine Anaphylaxis, Hives and Shortness of breath Other reaction(s): Unknown Other reaction(s): anaphylaxis Other reaction(s): Unknown Iodinated Contrast Media Hives Other Reaction(s): Difficulty Breathing, Other: See Comments Other reaction(s): Difficulty Breathing Other Reaction(s): Anaphylaxis Nalbuphine Other Reaction(s): muscle spams, and breathing, Unknown Other Reaction(s): Difficulty Breathing Patient Active Problem List Diagnosis Anxiety and depression (CMS/HCC) Muscoda's syndrome Gastroesophageal reflux disease with esophagitis Gastroparesis Generalized osteoarthritis of multiple sites Hyperlipidemia (CMS/HCC) IFG (impaired fasting glucose) Irritable bowel syndrome with both constipation and diarrhea LPRD (laryngopharyngeal reflux disease) Major depressive disorder, recurrent episode with anxious distress (CMS/HCC) Obesity (BMI 30.0-34.9) DARNELL (obstructive sleep apnea) Insomnia Vitamin B12 deficiency anemia due to intrinsic factor deficiency Diverticulosis Atherosclerosis of aorta (I70.0) Review of Systems Constitutional: Positive for fatigue and fever. Negative for chills. HENT: Positive for sore throat. Negative for trouble swallowing. Respiratory: Negative for cough, shortness of breath and wheezing. Cardiovascular: Negative for chest pain, palpitations and leg swelling. Gastrointestinal: Negative for diarrhea, nausea and vomiting. Objective Vital signs: BP 100/80 (Patient Position: Sitting) Pulse 90 Resp 16 SpO2 98% Physical Exam Constitutional: Appearance: Normal appearance. HENT: Head: Normocephalic. Nose: Nose normal. Mouth/Throat: Mouth: Mucous membranes are moist. Pharynx: Posterior oropharyngeal erythema present. No oropharyngeal exudate. Eyes: Pupils: Pupils are equal, round, and reactive to light. Cardiovascular: Rate and Rhythm: Normal rate. Pulmonary: Effort: Pulmonary effort is normal. Skin: General: Skin is warm and dry. Neurological: Mental Status: She is alert and oriented to person, place, and time. Psychiatric: Mood and Affect: Mood normal. Assessment/Plan Assessment & Plan 1. Recurrent streptococcal pharyngitis. She has had strep throat at least seven times and is currently on clindamycin. A comprehensive throat swab will be conducted to identify all potential pathogens associated with strep throat. The results, expected within 24 hours and she will receive a call with further plan of care. She has been advised to continue her current antibiotic regimen and to take probiotics in between antibiotic doses to maintain gut beck. A complete blood count (CBC) will be ordered to assess her white blood cell count and overall blood health. She has been provided with a work excuse note for the period from 07/11/2024 to 07/13/2024. She does have a follow up with her ENT in the next few weeks. 2. Urinary tract infection (UTI). She started Macrobid today for her UTI. The urine culture results will be reviewed to ensure the appropriate antibiotic is being used. If the current treatment is ineffective, an alternative antibiotic or intravenous therapy may be considered. 3. Fatigue. Her fatigue is likely related to her recurrent infections and ongoing antibiotic use. A CBC will be ordered to further evaluate her condition. She has been advised to rest and take time off work from 07/11/2024 to 07/13/2024. Problem List Items Addressed This Visit None Visit Diagnoses Strep throat - Primary Relevant Orders PHARYNGITIS/LARYNGITIS (HTRX) Other fatigue Relevant Orders CBC and differential Comprehensive metabolic panel Lower urinary tract symptoms Health Maintenance Topic Date Due Diabetes: Urine Protein Screening 06/16/2023 Influenza Vaccine (1) 01/08/2024 Diabetes: Hemoglobin A1C 06/05/2024 Mammogram 06/10/2024 Medicare Annual Wellness (AWV) 10/18/2024 Diabetes: Retinopathy Screening 01/06/2025 Cervical Cancer Screening 01/08/2026 Colorectal Cancer Screening 03/29/2034 Immunization History Administered Date(s) Administered Influenza Nasal, Unspecified 02/13/2021 Influenza, Injectable, MDCK, preservative free 01/19/2019 Influenza, injectable, MDCK, preservative free, quadrivalent 02/01/2020, 02/13/2021 Influenza, injectable, MDCK, quadrivalent 03/08/2018, 01/19/2019 Influenza, injectable, quadrivalent, preservative free 04/15/2017 Influenza, live, intranasal 02/06/2019 Influenza, seasonal, injectable 12/24/2019 Moderna SARS-CoV-2 Vaccination 05/27/2020, 06/23/2020 -Patient's chronic conditions have been reviewed in preparation for this appointment. Protocols reviewed and updated. A collaborative plan of care has been created for pt regarding specific health concerns. Any barriers to care have been identified and addressed. Any part of this document that has been added/copied from other documents has been reviewed for accuracy and updated as appropriate at the time of the patient encounter. -Follow up for Next scheduled follow-up. Lala Liu NP documented in this encounter [facility] 07-05-2024 Evaluation note Diagnosis Onset Date Resolution Strep throat acute June 1:48pm Urinary frequency acute Februar 2024 1:48pm Fatigue acute July 16 2:11pm Recurrent streptococcal pharyngitis acute July 16, 2024 2:11pm Neck muscle strain noneactive July 30, 2024 2:54pm Acute pharyngitis noneactive July 082024 2:54pm Abdominal bloating acute August 13, 2024 2:40pm Constipation acute August 13, 2 025 2:40pm Recurrent streptococcal pharyngitis acute August 13, 2024 2:40pm [facility] Work Phone: 1(950) 150-803802-27-2025 Evaluation note* Diagnosis Onset Date Resolution Status Admit Date Strep throat acute June 1:48pm Urinary frequency acute uar 2024 1:48pm Fatigue acute July 16 2:11pm Recurrent streptococcal pharyngitis acute July 16, 2024 2:11pm Neck muscle strain noneactive July 30, 2024 2:54pm Acute pharyngitis noneactive July 082024 2:54pm Abdominal bloating acute August 13, 2024 2:40pm Constipation acute August 13, 2:40pm Recurrent streptococcal pharyngitis acute August 13, 2024 2:40pm Viral URI acute September 13, 2024 9:05am [facility] Work Phone: 1(955) 474-792202-07-2025 NoteHNO ID: [id number] Author: HEATHER JOLLY PT Service: ? Author Type: Physical Therapist Type: Progress Notes Filed: 06/15/2024 12:30 Note Text: Thought appt was earlier so will need to cancel. Update: Will be starting trauma therapy next week. Water tahira is going. Will get swelling underneath ribs if active for hours. Getting nuclear stress Jun 28. Still doing well with electorlytes. Will have a BM an hour after drinking. Next session: abdominal mobility and strength [facility] History of Present illness Narrative* Louisa Paz CMA - 06/08/2024 11:15 AM EST / * Trinity Monet MD - 06/08/2024 11:15 AM EST Referred by self, she has multiple symptoms, and has been seeing different specialties. Her currentconcerning symptoms are shortness of breath and chest discomfort. Recently had echocardiogram through [facility], got a message saying that her heart muscles are stiff, she may have diastolic heart failure and cardiology consultation was suggested. She has previously seen Dr. Floyd of EP service. History Of Present Illness: Hank Liu is a 54 y.o. female presenting with multiple symptoms. She has a long history of fatigue. This is multifactorial. Reviewed prior notes by EP and Dr. Arredondo. Predominant symptoms are shortness of breath and chest discomfort. She also feels excessive abdominal bloating. Says her activity level has decreased because of her shortness of breath. Chest discomfort is described as an anterior tightness which then radiates around the chest into her mid back. Not particularly related to activity, can occur at rest, has not awakened her from sleep. She feels that under her rib cage she is swollen in her upper abdomen. She says she tries to eat healthy. Chest discomfort does not radiateto the neck arm or jaw. Her BMI is almost 37 kg/m she denies lower extremity edema. She has 3 pillow orthopnea. Says that she cannot breathe if she lays flat. She previously had a loop recorder, which has since been explanted. She reports multiple bouts of Dr. Del Real pharyngitis, for which she was seen by immunology, also reports having 2 pneumonias in the recent past. Denies recent history of COVID. Family history of blood clots-mother in her 50s of blood clots grandmother in her 50s andhas history of blood clots she herself has had 3 miscarriages. Her brother reportedly had blood clots details not available She has been consuming multiple doses of ibuprofen for aches and pains. 12 point ROS is negative or non contributory except as noted. Past Medical History : 1. Exertional shortness of breath and orthopnea 2. Chest heaviness, GI versus cardiac 3. Allergy to iodinated contrast-shortness of breath and hives 4. GERD and possible gastritis and esophagitis on sucralfate 5. Mixed hyperlipidemia 6. Family history of premature coronary artery disease multiple members 7. Echocardiogram February 2020 LVEF 65% normal pattern of LV diastolic filling normal chamber dimensions trace tricuspid regurgitation trace mitral regurgitation left atrial diameter 3.1 cm RV systolic pressure 22 mmHg 8. Coronary calcium score April 2020-left main 0 LAD 97 left circumflex 0 RCA 0 total 9797 pointpercentile ascending thoracic aorta 2.9 cm 9. Treadmill perfusion imaging May 28 21-7 minutes 8 seconds Duarte protocol 91% age-predicted maximum heart rate 8.2 METS peak blood pressure 174/78 normal perfusion LVEF 73% transient ischemic dilatation ratio 0.89 10. Echocardiogram May 2024 [facility] mild concentric LVH LVEF 63 5% RV size normal RV systolic function normal valves grossly normal grade 1 LV diastolic dysfunction LV end-systolic diameter 2.9 cm IVC normal RVSP 25 mmHg 11. 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 12. Obstructive sleep apnea 13. Apparently her loop recorder picked up pauses up to 3.5 seconds and some ventricular dysrhythmia. An EP study was attempted at which time she became apneic with sedation, and the study was aborted. 14. Status post cholecystectomy, breast reduction, carcinoid tumor removal from duodenum. 15. Excessive bleeding bruising 3 miscarriages family history of blood clots mother grandmother andbrother. 16. Spiral CT chest November 2023-no pleural effusion or pleural thickening no lymph nodes small pericardial effusion mild to moderate coronary artery calcification stable linear and nodular opacities within the posterior basal portion of the right lower lobe. Most likely to be infectious/inflammatory in nature 17. CT abdomen and pelvis with IV contrast November 2023-mild to moderate hepatic steatosis small nonobstructing right renal calculus. No ascites Social History: She reports that she has quit smoking. Her smoking use included cigarettes. She has never used smokeless tobacco. She reports that she does not currently use alcohol. She reports that she does not use drugs. Family History: Family History Problem Relation Name Age of Onset Hyperlipidemia Mother Colon cancer Mother Blood clot Mother Heart disease Father Hyperlipidemia Father Hypertension Father Heart attack Father Heart attack Brother Cancer Brother Allergies: Iodinated contrast media and Nalbuphine Outpatient Medications: Current Outpatient Medications Medication Instructions rOPINIRole (REQUIP) 0.5 mg, Nightly rosuvastatin (CRESTOR) 40 mg, Nightly sucralfate (CARAFATE) 1 g, 3 times daily traZODone (DESYREL) 100 mg, Nightly Last Recorded Vitals: Vitals: 06/08/24 1104 BP: 130/80 BP Location: Right arm Patient Position: Sitting Pulse: 84 Weight: 90.7 kg (200 lb) Height: 1.575 m (5' 2 ) Physical Exam: GENERAL APPEARANCE: Well developed, well nourished, in no acute distress. CHEST: Symmetric and non-tender. INTEGUMENT: Skin warm and dry, without gross excoriationis or lesions. HEENT: No gross abnormalities, no jugular venous distention no carotid bruit or scleral icterus NECK: Supple, no JVD, no bruit. Thyroid not palpable. Carotid upstrokes normal. NEURO/PSHCY: Alert and oriented x3; appropriate behavior and responses and responses, with normal balance and coordination LUNGS: Clear to auscultation bilaterally; normal respiratory effort. HEART: Rate and rhythm regular with no evident murmur; no gallop appreciated. There are no rubs, clicks or heaves. ABDOMEN: Soft, nontender, no masses or bruits. Clinically I do not appreciate ascites MUSCULOSKELETAL: No obvious deformity identified EXTREMITIES: Warm There is no edema noted. PERIPHERAL VASCULAR: Pulses present and equally palpable; 2+ throughout. Labs reviewed today : January 2024-hemoglobin 13 hematocrit 38.5 platelets 256 sodium 135 potassium 3.9 creatinine 0.72 GFR greater than 60 calcium 10.4 upper normal being 10.3 liver enzymes normalalbumin 4.8 total protein 7.5 Assessment/Plan 1. Palpitations Follow Up In Cardiology ECG 12 Lead Nuclear Stress Test Sedimentation Rate D-dimer, VTE Exclusion Sedimentation Rate D-dimer, VTE Exclusion 2. Sensation of chest pressure ECG 12 Lead B-Type Natriuretic Peptide Nuclear Stress Test Sedimentation Rate D-dimer, VTE Exclusion B-Type Natriuretic Peptide Sedimentation Rate D-dimer, VTE Exclusion 3. Shortness of breath ECG 12 Lead B-Type Natriuretic Peptide Nuclear Stress Test Sedimentation Rate D-dimer, VTE Exclusion B-Type Natriuretic Peptide Sedimentation Rate D-dimer, VTE Exclusion 4. Mixed hyperlipidemia 5. Malignant carcinoid tumor of stomach 6. Abdominal bloating 7. Sleep apnea, unspecified type 8. BMI 36.0-36.9,adult 9. Former smoker Clinical decision making: Multiple comorbidities. Exertional shortness of breath and chest discomfort need further evaluation She has a very strong family history of premature coronary artery disease, she has several risk factors, there is also family history of blood clots. She herself has had 3 miscarriages. I do not appreciate jugular venous distention or ascites or lower extremity edema, but she says that her midsection is increasing in size. No history of TB or radiation to the chest. No weight loss. Her chest discomfort could be also GI in origin given severe GERD with gastritis and esophagitis. I do not get the sense that she is having unstable angina pectoris. Weight loss would help very much in all her symptoms Her echocardiogram reported mild diastolic dysfunction however her symptoms are way out of proportion to that finding. Her PA pressure is reported to be normal Could consider constrictive pericarditis of restrictive cardiomyopathy in the differential diagnosis but she does not have risk factors for constrictive pericarditis, CT of the chest without IV contrast in April 2024 does not report calcification of the cardiac silhouette. We will proceed with a BNP level, D-dimer, and a treadmill stress perfusion imaging study. Based onthe results further recommendations can be made. If she does not have gastroparesis, she would be agreat candidate for Wegovy or similar agents. Defer to Dr. Brown. Follow-up after testing. If symptoms escalate she might need ER evaluation. Strongly consider GI prophylaxis-defer to Dr. Brown Provider Attestation - Scribe documentation I spent about 70 minutes in chart review patient evaluation [id number], coordinating care and ordering additional testing. All medical record entries made by the Scribe were at my direction and personally dictated by me. Ihave reviewed the chart and agree that the record accurately reflects my personal performance of the history, physical exam, discussion and plan. documented in this [place] Work Phone: 1([phone]) 281-354401-31-2025 Instructions* Patient Instructions* Luz Lange LPN - 06/08/2024 11:15 AM EST Please bring all medicines, vitamins, and herbal supplements with you when you come to the office. Prescriptions will not be filled unless you are compliant with your follow up appointments or have a follow up appointment scheduled as per instruction of your physician. Refills should be requested at the time of your visit. EKG done in office today BMI was above normal measurement. Current weight: 90.7 kg (200 lb) Weight change since last visit (-) denotes wt loss 22 lbs Weight loss needed to achieve BMI 25: 63.6 Lbs Weight loss needed to achieve BMI 30: 36.3 Lbs Provided instructions on dietary changes Provided instructions on exercise. documented in this [place] Work Phone: 1(325) 219-140001-24-2025 NoteHNO ID: [id number] Author: JOAQUIM MANN MD Service: ? Author Type: Physician Type: Progress Notes Filed: 06/01/2024 10:08 Note Text: FREDDY Liu is a 54 year old female who presents with current strep throat. Patient has had 6 episodes of strep throat where she is symptomatic with left ear pain and sore throat. Presently the patient is relatively asymptomatic so for some mild left ear pain. ROS General Weight loss: No Fatigue: No Night sweats:No Cardiac Chest pain:No Fast heart rate:No Swelling in the feet:No Respiratory Short of breath:No Cough:No Wheezing:No Gastrointestinal Nausea:No Vomiting:No Indigestion:No Past medical history, family history, and social history reviewed. PE There were no vitals taken for this visit. General: Patient is awake, alert, NAD. Voice is normal. Skin: normal Eyes: Extraocular motion and Gaze is normal. Ears: Right external auditory canal is normal. TMJ: normal. Right tympanic membranes normal. Left external auditory canal is normal. Left tympanic membrane normal. Nose: Septum is normal. Turbinates are normal. Nasopharynx:normal Oral Cavity/Oropharynx: Lips normal Dentition normal Tongue normal. Tonsils normal. Palate and uvula normal. Pharynx posterior normal Hypopharynx: Base of tongue normal Pyriform sinus normal. Larynx: Vocal cords normal. Epiglottis normal. Post cricoid normal. Salivary glands: Parotid normal. Submandibular and sublingual normal. Thyroid: normal. Lymphatic/Neck: Lymph nodes normal. Neurologic: Facial nerve normal. Ultrasound reviewed ASSESSMENT/PLAN: 1. Sore throat - ICD9: 462, ICD10: J02.9 (primary diagnosis) - GROUP A STREPTOCOCCUS BY PCR 2. Thyroid nodule - ICD9: 241.0, ICD10: E04.1 3. Acute recurrent streptococcal tonsillitis - ICD9: 034.0, ICD10: J03.01 I recommend a culture today since she is relatively asymptomatic and her exam is normal to rule out a strep carrier state I have not recommend any further treatment or testing for the thyroid nodule Joaquim Mann MD Findings will be communicated to the referring physician via mail or electronic medical record.[facility]01-24-2025 History of Present illness Narrative* Joaquim Mann MD - 06/01/2024 10:07 AM EST HPI Hank Liu is a 54 year old female who presents with current strep throat. Patient has had 6 episodes of strep throat where she is symptomatic with left ear pain and sore throat. Presently the patient is relatively asymptomatic so for some mild left ear pain. ROS General Weight loss: No Fatigue: No Night sweats:No Cardiac Chest pain:No Fast heart rate:No Swelling in the feet:No Respiratory Short of breath:No Cough:No Wheezing:No Gastrointestinal Nausea:No Vomiting:No Indigestion:No Past medical history, family history, and social history reviewed. PE There were no vitals taken for this visit. General: Patient is awake, alert, NAD. Voice is normal. Skin: normal Eyes: Extraocular motion and Gaze is normal. Ears: Right external auditory canal is normal. TMJ: normal. Right tympanic membranes normal. Left external auditory canal is normal. Left tympanic membrane normal. Nose: Septum is normal. Turbinates are normal. Nasopharynx:normal Oral Cavity/Oropharynx: Lips normal Dentition normal Tongue normal. Tonsils normal. Palate and uvula normal. Pharynx posterior normal Hypopharynx: Base of tongue normal Pyriform sinus normal. Larynx: Vocal cords normal. Epiglottis normal. Post cricoid normal. Salivary glands: Parotid normal. Submandibular and sublingual normal. Thyroid: normal. Lymphatic/Neck: Lymph nodes normal. Neurologic: Facial nerve normal. Ultrasound reviewed ASSESSMENT/PLAN: 1. Sore throat - ICD9: 462, ICD10: J02.9 (primary diagnosis) - GROUP A STREPTOCOCCUS BY PCR 2. Thyroid nodule - ICD9: 241.0, ICD10: E04.1 3. Acute recurrent streptococcal tonsillitis - ICD9: 034.0, ICD10: J03.01 I recommend a culture today since she is relatively asymptomatic and her exam is normal to rule outa strep carrier state I have not recommend any further treatment or testing for the thyroid nodule Joaquim Mann MD Findings will be communicated to the referring physician via mail or electronic medical record. [facility] this [facility] NoteHNO ID: [id number] Author: AKHIL BENITEZ, RN Service: ? Author Type: Registered Nurse Type: Progress Notes Filed: 05/29/2024 10:05 Note Text: 05/29/2024 10:05 AM IV Access: IV IV Site: left Antecubital IV GAUGE 24 gauge IV Removal Date 05/29/2024 Time 10:05 AM Reactions: WNL Order reviewed by nurse:yes Medications: Definity - dosage 1cc Reaction: No [facility]il Benitez [facility] History of Present illness Narrative* Akhil Benitez RN - 05/29/2024 10:04 AM EST 05/29/2024 10:05 AM IV Access: IV IV Site: left Antecubital IV GAUGE 24 gauge IV Removal Date 05/29/2024 Time 10:05 AM Reactions: WNL Order reviewed by nurse:yes Medications: Definity - dosage 1cc Reaction: No Akhil Benitez RN documented in this encounterC[facility] Evaluation note* Diagnosis Onset Date Resolution Status Admit Date Acute pharyngitis noneactive May 23, 2024 9:03am Strep throat acute June 1:48pm Urinary frequency acute ua2024 1:48pm Fatigue acute July 16 2:11pm Recurrent streptococcal pharyngitis acute July 16, 2024 2:11pm Abdominal bloating acute August 13, 2024 2:40pm Constipation acute August 13 025 2:40pm Recurrent streptococcal pharyngitis acute August 13, 2024 2:40pm [facility] Work Phone: 1(506) 130-867901-10-2025 History of Present illness Narrative* Heather Jolly PT - 05/18/2024 3:32 PM EST Program_ID:[id number] Access Code: [email or web address] URL: [email or web address] Date: 05-18-2024 Prepared By: Heather Jolly Program Notes Exercises - Abdominal Massage - 2-3 x daily - 7 x weekly - 1 sets - 10 reps - SMFR ball to hips and spine - 1 x daily - 7 x weekly - 1 sets - reps - Crocodile breathing - 1 x daily - 7 x weekly - 1 sets - 1 reps - Prone abdominal massage with pilates ball - 1 x daily - 3 x weekly - 1 sets - 1 reps - Inverted breathing with and without blocks under knees - 1 x daily - 7 x weekly - 1 sets - 8 reps - hip crossbody stretch - 1 x daily - 5 x weekly - 1 sets - 3 reps - External Pelvic Floor Awareness - 1 x daily - 7 x weekly - 1 sets - 10 reps - Seated prayer stretch for back body expansion - 1 x daily - 7 x weekly - 1 sets - 10 reps - Seated Trunk Rotation - 1 x daily - 5 x weekly - 1 sets - 10 reps - Seated Punches with Trunk Rotation - 1 x daily - 5 x weekly - 1 sets - 10 reps * Heather Jolly PT - 05/18/2024 2:18 PM EST Episode Visit Count: 2 Therapist That Will Accept/Oversee The Plan Of Care: Heather Jolly PT, DPT Start of Care Date: 05/11/24 Plan of Care Certification Date: 05/11/24 Next Certification Due Date: 08/09/24 REHABILITATION AND SPORTS THERAPY PHYSICAL THERAPY TREATMENT NOTE ASSESSMENT: Hank Liu tolerated the session with decreased mm tension. Has made great gains inpast week. Having 1-2 BM's daily, less abdominal swelling, able to stop laxative. Profoundly tight in thoracic spine so added ex to address. Also added prone abdominal massage with ball to help with abdomen sensitivity. The patient will continue to benefit from ongoing skilled physical therapy to progress toward set goals. PLAN FOR NEXT VISIT: gentle core; seated ext PF SMFR SUBJECTIVE: Started electrolytes and has a type 4 BM every day since started!! Stopped taking metamucil! No longer has L rib cage pain. Stomach swelling decreasing. No longer gassy Tahira aqua class 2x/week. Called trauma therapist in [place] This is the best I have felt in 3 years! Would like to be able to return to wt training, tennis etc Pain: Pain Pain Level: ( good ) Post Treatment Pain Post Treatment Pain Level: Better OBJECTIVE MEASURES WITH LEVEL OF FUNCTION: Pelvic Floor Bowel Movement Frequency: 1-2x/day Bowel Movement Consistency ([place]) : 4: Like a sausage or snake, smooth and soft Trunk Alignment: max trunk rotation Pelvic Floor Manual Assessment External Pelvic Region Tenderness/ Hyperactivity - Trunk: Periumbilical Periumbilical: Bilateral (R>L) TREATMENT: Therapeutic Exercise: 2: crocodile breathing w deflated pilates ball 1 min 3: *prone abominal massage w deflated ball 2 min 4: Inverted breathing 1 min; cues to breath into back pockets 7: *seated trunk rotation 5x 8: *seated punches w trunk rotation 5x Skilled Intervention: Patient was educated in proper exercise technique and purpose for exercises. Reviewed and educated patient on additions/changes for home exercise program as above (*). Skilled judgment was used in selection of appropriate interventions. Provided written instruction for home exercise program to facilitate proper performance and compliance. Manual Therapy: 1: abdominal massage 5 min 3: infraclav rib mobs 8x 4: medial rib mobs 5x 6: seated scap retraction w clinician OP 8x 7: seated thoracic ext w clinician OP 8x 8: seated pec stretch w clinician OP 8x Skilled Intervention: Manual skills to improve joint mobility, ROM, and decrease pain. Utilized anatomy knowledge of the therapist, and assessment of patient's response to intervention. Self-Shelter Management: 1: discussed trauma, NS regulation Skilled Intervention: pt education Billing Therapeutic Exercise Treatment Minutes: 27 Manual TherapyTreatment Minutes: 25 Self-Care/Home Management Treatment Minutes: 15 Skilled Treatment Time Minutes (timed and untimed codes): 67 Total Session Time (minutes): 67 Session Start Time : 1439 Session Stop Time : 154 Heather Jolly PT documented in this encounterC[facility] NoteHNO ID: [id number] Author: HEATHER JOLLY PT Service: ? Author Type: Physical Therapist Type: Progress Notes Filed: 05/18/2024 15:49 Note Text: Episode Visit Count: 2 Therapist That Will Accept/Oversee The Plan Of Care: Heather Jolly PT, DPT Start of Care Date: 05/11/24 Plan of Care Certification Date: 05/11/24 Next Certification Due Date: 08/09/24 REHABILITATION AND SPORTS THERAPY PHYSICAL THERAPY TREATMENT NOTE ASSESSMENT: Hank Liu tolerated the session with decreased mm tension. Has made great gains in past week. Having 1-2 BM's daily, less abdominal swelling, able to stop laxative. Profoundly tight in thoracic spine so added ex to address. Also added prone abdominal massage with ball to help with abdomen sensitivity. The patient will continue to benefit from ongoing skilled physical therapy to progress toward set goals. PLAN FOR NEXT VISIT: gentle core; seated ext PF SMFR SUBJECTIVE: Started electrolytes and has a type 4 BM every day since started!! Stopped taking metamucil! No longer has L rib cage pain. Stomach swelling decreasing. No longer gassy Tahira aqua class 2x/week. Called trauma therapist in [place] This is the best I have felt in 3 years! Would like to be able to return to wt training, tennis etc Pain: Pain Pain Level: ( good ) Post Treatment Pain Post Treatment Pain Level: Better OBJECTIVE MEASURES WITH LEVEL OF FUNCTION: Pelvic Floor Bowel Movement Frequency: 1-2x/day Bowel Movement Consistency ([place]) : 4: Like a sausage or snake, smooth and soft Trunk Alignment: max trunk rotation Pelvic Floor Manual Assessment External Pelvic Region Tenderness/ Hyperactivity - Trunk: Periumbilical Periumbilical: Bilateral (R>L) TREATMENT: Therapeutic Exercise: 2: crocodile breathing w deflated pilates ball 1 min 3: *prone abominal massage w deflated ball 2 min 4: Inverted breathing 1 min; cues to breath into back pockets 7: *seated trunk rotation 5x 8: *seated punches w trunk rotation 5x Skilled Intervention: Patient was educated in proper exercise technique and purpose for exercises. Reviewed and educated patient on additions/changes for home exercise program as above (*). Skilled judgment was used in selection of appropriate interventions. Provided written instruction for home exercise program to facilitate proper performance and compliance. Manual Therapy: 1: abdominal massage 5 min 3: infraclav rib mobs 8x 4: medial rib mobs 5x 6: seated scap retraction w clinician OP 8x 7: seated thoracic ext w clinician OP 8x 8: seated pec stretch w clinician OP 8x Skilled Intervention: Manual skills to improve joint mobility, ROM, and decrease pain. Utilized anatomy knowledge of the therapist, and assessment of patient's response to intervention. Self-Shelter Management: 1: discussed trauma, NS regulation Skilled Intervention: pt education Billing Therapeutic Exercise Treatment Minutes: 27 Manual TherapyTreatment Minutes: 25 Self-Care/Home Management Treatment Minutes: 15 Skilled Treatment Time Minutes (timed and untimed codes): 67 Total Session Time (minutes): 67 Session Start Time : 1439 Session Stop Time : 1546 Heather Jolly [facility]01-09-2025 Evaluation note* Diagnosis Onset Date Resolution Status Admit Date History of tobacco abuse acute May 17, 2024 2:16pm Multiple pulmonary nodules acute May 17, 2024 2:16pm Obesity acute May 17 2 025 2:16pm Recurrent respiratory infection acute May 17 2:16pm Strep throat acute May 1:39pm Acute pharyngitis noneactive May 23, 2024 9:03am Strep throat acute June 1:48pm Urinary frequency acute 2024 1:48pm Fatigue acute July 16 2:11pm Recurrent streptococcal pharyngitis acute July 16, 2024 2:11pm [facility] Work Phone: 1(258) 809-312801-09-2025 Evaluation note* Diagnosis Onset Date Resolution Status Admit Date History of tobacco abuse acute May 17, 2024 2:16pm Multiple pulmonary nodules acute May 17, 2024 2:16pm Obesity acute May 17, 2 025 2:16pm Recurrent respiratory infection acute May 17 2:16pm Strep throat acute May 1:39pm Acute pharyngitis noneactive May 23, 2024 9:03am Strep throat acute June 1:48pm Urinary frequency acute Februar 2024 1:48pm Fatigue acute July 16 2:11pm Recurrent streptococcal pharyngitis acute July 16, 2024 2:11pm Recurrent streptococcal pharyngitis acute August 13, 2024 2:40pm [facility] Work Phone: 1([phone]) 121-913301-07-2025 Instructions* Patient Instructions* Angel Cisse MD - 05/15/2024 3:12 PM EST Please get your bloodwork done today, or at your next most convenient time, and I will reach out toyou with the results You do not need to fast for your bloodwork. You can go to any [facility] lab. If your insurance prefers a [facility] or a [facility], you may go there. Please activate your [facility] MyChart so I can release your results to you, with comments, when they are back. I will contact you with the results of that testing when all of the tests results have come back. As far as the testing we performed, a few things are helpful to discuss in advance. -It is not unusual that some immunology tests take over a week to come back, please be patient. -Realize that minor abnormalities are very common on immune testing, please don't worry if some values are marked out of the normal range. We will discuss if there is anything to be concerned about. documented in this encounterC[facility]01-[facility] History of Present illness Narrative* Angel Cisse MD - 05/15/2024 2:00 PM EST Images from the original note were not included. Allergy and Immunology Patient Name: Hank Liu PRIMARY CARE PHYSICIAN: Trey Brown DO REASON FOR CONSULT: recurrent infections REQUESTING PHYSICIAN: Linda Valero MD My final recommendations will be communicated to the requesting health care provider by way of the shared medical record for internal providers or letter via the [employer] for external providers. 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 Recurrent infections Patient reports that for the past 4-5 years, she has been constantly ill She feels like she is always sick and needing antibiotics She had strep throat about 5-6 times this year Was usually treated at urgent care with Augmentin Reports that she is clear between the infections and then getting a new infection each time (reports positive throat swab tests) Her symptoms include throat pain and swelling, ear pain and then cough She also reports having 1-2 CXR-proven pneumonia's each year She had two pneumonias this year needing oral antibiotics Has not needed any admissions or IV antibiotics Has not been seen by Immunology Was seen by Rheumatology, and her autoimmune workup was non-revealing She does report episodes of intermittent abdominal swelling She reports severe swelling and pain, that occur without any identifiable trigger She was told that Immunology might be able to help She denies any episodes of lip or throat angioedema, and no history of hives No family history of angioedema Has brother who has cancer and Ankylosing spondylitis He also gets sick all the time Mom young Dad is 88 years old, no history of recurrent infections or autoimmune disease Patient is currently not taking any immunosuppressive medications She has not taken any chemotherapy in the past for her carcinoid and bone tumors Allergic/Infectious Personal History: Nasal polyps: The patient has never had nasal polyps. Asthma: The patient has no history of asthma. Sinusitis: The patient does not suffer from frequent sinopulmonary infections. Contact Dermatitis/Eczema: DENIES Food Allergies/Reactions: DENIES Urticaria/Angioedema: DENIES Hymenoptera Reaction: denies Environmental history: Type of home: House Basement: Yes Air conditioning: Central air Mold/moisture problem: No Wood-burning stove: No Bedroom cally: Wood Use of dust mite covers: No Use of down/feather pillows/comforters: No Presence of stuffed animals in the bedroom: No Pets in the home: cats, dogs Smoking history: Occupation: PAST MEDICAL AND SURGICAL HISTORY: PAST MEDICAL HISTORY Diagnosis Date Arthritis Carcinoid tumor of stomach Gall stones GERD (gastroesophageal reflux disease) Hemorrhoids Hyperlipidemia Stomach ulcer UTI (urinary tract infection) PAST SURGICAL HISTORY Procedure Laterality Date ANESTH, SECTION CHOLECYSTECTOMY COLONOSCOPY 03/22/2016 EGD HYSTERECTOMY HX told she still has cervix, was for bleeding LAP REMOVE/REV MESH BLADDER WALL PAST SURGICAL HISTORY OF 04/2019 breast reconstruction SLEEVE RESECTION STOMACH ALLERGIES: is allergic to iodine, atorvastatin, bupropion, iodinated contrast media, mirtazapine, nalbuphine, and nubain [nalbuphine hcl]. FAMILY HISTORY: FAMILY HISTORY Problem Relation Age of Onset Diabetes Mother Colon Cancer Mother 55 detected on autopsy Aneurysm Mother 55 aortic Heart disease Father Hyperlipidemia Father Stroke Father Cancer Brother 48 kidney Cancer Brother spinal cord REVIEW OF SYSTEMS: All systems were reviewed and were negative except as listed in the HPI and above. Answers submitted by the patient for this visit: Allergy Review of Symptoms (Submitted on 05/10/2024) Sore throat: Yes Abdominal pain: Yes Nausea: Yes Diarrhea: Yes Constipation: Yes PHYSICAL EXAM: BP 123/71 Pulse 82 Temp 36.5 C (97.7 F) SpO2 99% There is no height or weight on file to calculate BMI. General: The patient is pleasant, well groomed, in no acute distress, breathing comfortably and interactive with the exam. Head: Normocephalic, atraumatic Eyes: Conjunctiva not injected, no drainage. Neck: Supple, normal ROM Lymph: No cervical or supraclavicular LAD. Musculoskeletal: Normal muscle tone and gait. Neurologic: Grossly non-focal Psych: Appropriate affect. Dermatologic: No rash, urticaria or excoriations. IMAGING: Last CT Chest - Impression Only CT CHEST W IVCON Exam End: 11/30/2023 10:55 AM (Final result) Impression: IMPRESSION: 1. Within the posterior base of the right lower lobe, there are stable linear and nodular opacities. Although nonspecific, these have been present on multiple prior studies and are decreased in extent when compared to a more remote comparison exam from 05/05/2023. These did not demonstrate tracer uptake on the recent dotatate PET CT. These are most likely to be infectious/inflammatory in etiology. Would advise continued close attention on imaging surveillance. No new or enlarging pulmonary nodules.... Assessment/Plan: Recurrent infections History of recurrent infections (pneumonias and strep throat) which is concerning for immune dysfunction. Obtain immunodeficiency profile Humoral Immunity Panel 1: diphtheria, tetanus, 23 pneumococcal serotypes, IgG, IgA, IgM Immunodeficiency CDC: immune cell enumeration for T cells and B cells (with CD markers), NK cells We discussed pneumovax today. Patient is concerned about side effects of vaccines, and would like to hold off on this step for now. May reconsider in the future. Warning signs of PIDDs in adults: >= 2 new ear infections within 1 year >= 2 sinus infections in 1 year in the absence of allergies 1 Pneumonia per year for more than 1 year Chronic diarrhea with weight loss Repeat viral infections (colds, herpes, warts, condyloma) Recurrent need for IV antibiotics to clear infections Recurrrent deep abscesses of the skin or internal organs Persistent thrush or fungal infections on skin or elsewhere Infection with normal harmless tuberculosis-like bacteria A family history of PIDD If 2 or more signs are present, then an immune workup should be initiated. - CONSULT TO ALLERGY/IMMUNOLOGY - ALTERNATIVE COMPLEMENT PATHWAY ACTIVITY (AH50); Future - COMPLEMENT DEFICIENCY ASSAY; Future - HUMORAL IMMUNITY PANEL 1; Future - IMMUNODEFICIENCY CDC; Future - IGG SUBCLASSES BLD; Future Angioedema, initial encounter Recurrent episodes of abdominal swelling and pain without an identifiable trigger, and has been worked up by GI and evaluated for this for many years. Has never been worked up for hereditary or acquired angioedema, so will order blood tests for that today. - C1 ESTERASE INHIB FU; Future - C1 ESTERASE INHIBIT; Future - C4 COMPLEMENT; Future - C1Q COMPLEMENT PROT; Future - TRYPTASE BLOOD; Future Discussed medication dosage, usage, side effects, and goals of treatment in detail. Follow-up: Return in about 3 months (around 08/13/2024). Patient advised to call or return sooner should current symptoms worsen or fail to improve or if new symptoms or problems arise. Angel Cisse MD Allergy and Immunology [facility] I spent a total of 45 minutes on the date of the service which included preparing to see the patient, [id number] patient care, completing clinical documentation, obtaining and/or reviewing separately obtained history, performing a medically appropriate examination, counseling and educating the pat ient/family/caregiver, ordering medications, tests, or procedures, independently interpreting results (not separately reported), and communicating results to the patient/family/caregiver. documented [facility] NoteHNO ID: [id number] Author: ANGEL CISSE MD Service: ? Author Type: Physician Type: Progress Notes Filed: 05/15/2024 21:52 Note Text: Allergy and Immunology Patient Name: Hank Liu PRIMARY CARE PHYSICIAN: Trey Brown DO REASON FOR CONSULT: recurrent infections REQUESTING PHYSICIAN: Linda Valero MD My final recommendations will be communicated to the requesting health care provider by way of the shared medical record for internal providers or letter via the [employer] for external providers. 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 Recurrent infections Patient reports that for the past 4-5 years, she has been constantly ill She feels like she is always sick and needing antibiotics She had strep throat about 5-6 times this year Was usually treated at urgent care with Augmentin Reports that she is clear between the infections and then getting a new infection each time (reports positive throat swab tests) Her symptoms include throat pain and swelling, ear pain and then cough She also reports having 1-2 CXR-proven pneumonia's each year She had two pneumonias this year needing oral antibiotics Has not needed any admissions or IV antibiotics Has not been seen by Immunology Was seen by Rheumatology, and her autoimmune workup was non-revealing She does report episodes of intermittent abdominal swelling She reports severe swelling and pain, that occur without any identifiable trigger She was told that Immunology might be able to help She denies any episodes of lip or throat angioedema, and no history of hives No family history of angioedema Has brother who has cancer and Ankylosing spondylitis He also gets sick all the time Mom young Dad is 88 years old, no history of recurrent infections or autoimmune disease Patient is currently not taking any immunosuppressive medications She has not taken any chemotherapy in the past for her carcinoid and bone tumors Allergic/Infectious Personal History: Nasal polyps: The patient has never had nasal polyps. Asthma: The patient has no history of asthma. Sinusitis: The patient does not suffer from frequent sinopulmonary infections. Contact Dermatitis/Eczema: DENIES Food Allergies/Reactions: DENIES Urticaria/Angioedema: DENIES Hymenoptera Reaction: denies Environmental history: Type of home: House Basement: Yes Air conditioning: Central air Mold/moisture problem: No Wood-burning stove: No Bedroom cally: Wood Use of dust mite covers: No Use of down/feather pillows/comforters: No Presence of stuffed animals in the bedroom: No Pets in the home: cats, dogs Smoking history: Occupation: PAST MEDICAL AND SURGICAL HISTORY: PAST MEDICAL HISTORY Diagnosis Date Arthritis Carcinoid tumor of stomach Gall stones GERD (gastroesophageal reflux disease) Hemorrhoids Hyperlipidemia Stomach ulcer UTI (urinary tract infection) PAST SURGICAL HISTORY Procedure Laterality Date ANESTH, SECTION CHOLECYSTECTOMY COLONOSCOPY 03/22/2016 EGD HYSTERECTOMY HX told she still has cervix, was for bleeding LAP REMOVE/REV MESH BLADDER WALL PAST SURGICAL HISTORY OF 04/2019 breast reconstruction SLEEVE RESECTION STOMACH ALLERGIES: is allergic to iodine, atorvastatin, bupropion, iodinated contrast media, mirtazapine, nalbuphine, and nubain [nalbuphine hcl]. FAMILY HISTORY: FAMILY HISTORY Problem Relation Age of Onset Diabetes Mother Colon Cancer Mother 55 detected on autopsy Aneurysm Mother 55 aortic Heart disease Father Hyperlipidemia Father Stroke Father Cancer Brother 48 kidney Cancer Brother spinal cord REVIEW OF SYSTEMS: All systems were reviewed and were negative except as listed in the HPI and above. Answers submitted by the patient for this visit: Allergy Review of Symptoms (Submitted on 05/10/2024) Sore throat: Yes Abdominal pain: Yes Nausea: Yes Diarrhea: Yes Constipation: Yes PHYSICAL EXAM: BP 123/71 Pulse 82 Temp 36.5 ?C (97.7 ?F) SpO2 99% There is no height or weight on file to calculate BMI. General: The patient is pleasant, well groomed, in no acute distress, breathing comfortably and interactive with the exam. Head: Normocephalic, atraumatic Eyes: Conjunctiva not injected, no drainage. Neck: Supple, normal ROM Lymph: No cervical or supraclavicular LAD. Musculoskeletal: Normal muscle tone and gait. Neurologic: Grossly non-focal Psych: Appropriate affect. Dermatologic: No rash, urticaria or excoriations. IMAGING: Last CT Chest - Impression Only CT CHEST W IVCON Exam End: 11/30/2023 10:55 AM (Final result) Impression: IMPRESSION: 1. Within the posterior base of the right lower lobe, there are stable linear and nodular opacities. Althoug (more content not included)...[facility]01-03-2025 History of Present illness Narrative* Heather Jolly, PT - 05/11/2024 2:35 PM EST Program_ID:[id number] Access Code: [email or web address] URL: [email or web address] Date: 05-11-2024 Prepared By: Heather Jolly Program Notes Exercises - Abdominal Massage - 2-3 x daily - 7 x weekly - 1 sets - 10 reps - SMFR ball to hips and spine - 1 x daily - 7 x weekly - 1 sets - reps - Crocodile breathing - 1 x daily - 7 x weekly - 1 sets - 1 reps - Inverted breathing with and without blocks under knees - 1 x daily - 7 x weekly - 1 sets - 8 reps - External Pelvic Floor Awareness - 1 x daily - 7 x weekly - 1 sets - 10 reps - Seated prayer stretch for back body expansion - 1 x daily - 7 x weekly - 1 sets - 10 reps * Heather Jolly PT - 05/11/2024 1:00 PM EST Images from the original note were not included. Episode Visit Count: 1 Therapist That Will Accept/Oversee The Plan Of Care: Heather Jolly PT, DPT Start of Care Date: 05/11/24 Plan of Care Certification Date: 05/11/24 Next Certification Due Date: 08/09/24 Patient Identified by Name and Date of : Yes REHABILITATION AND SPORTS THERAPY PHYSICAL THERAPY EVALUATION PLAN OF CARE: Assessment: Patient presents with with chief complaint of abdominal pain, constipation, multiple joint aches, declining mobility. Sig medical history; multiple abdominal surgeries with resultant scartissue. Patient presents with impairments in hip/lumbar/pelvic floor flexibility, independence in exercise, strength, symptom management, breathing mechanics/mobility, muscle coordination, and tissuetenderness. PMH significant for: mult surgeries and medical trauma (see below). She will benefit from skilled therapy services to meet the goals established for this plan of care as noted below. Goals for Episode of Care: established 05/11/24 BLADDER Patient reports NOCTURIA 0-1 times to demonstrate normalized bladder function. BOWEL Patient reports increased ability to FULLY EMPTY bowels without straining at least 90% of the time to normalize bladder/bowel function. Patient reports having 1 bowel movements per day without use of bowel aids to demonstrate improved bowel function. LIFESTYLE Patient will report decreased pain rating by 2 points to meet minimal clinical important differencefor numeric pain rating scale. BREATHING Improve back and side body EXPANSION by 50% to improve diaphragm mobility. Patient reports ability to BREATHE INTO PELVIC FLOOR with exercises/function to improve PF/Julianne dynamics and decrease PF tension. Patient displays improved range of motion, coordination, and muscle dynamics of Julianne as evidenced bythe ability to inhale without PARADOXICAL CONTRACTION at least 100% of the time to normalize bladder/bowel function; reduce pelvic pain. TBD BIOMECHANICS AND PF MECHANICS Patient will be able to HIP HINGE to be able to demonstrate good glut eccentric strength/mobility for functional activities at a home and to decrease lumbar overuse/injury. Patient will improve hip mobility to WNL so hips are able to better support the pelvic floor so to help decrease pelvic floor symptoms. Patient will have FULL apical EXPANSION and posterior mediastinum expansion to improve diaphragm mechanics so to improve its biomechanical relationship with the pelvic floor. Patient displays DECREASED MUSCLE SPASMS in PF MM's noted in evauation to allow for decreased pain levels, improved bladder/bowel function. TBD Time Frame for Goals and Treatment : 08/09/24 Planned Interventions, Frequency, and Duration: Current Frequency: 1x every other week Duration: 16 weeks Total Number of Visits Planned: 8 Planned Treatment Interventions: Therapeutic exercise (77828), Manual therapy (49810), Self-fpc management (86464), Patient/Family/Caregiver Education PLAN FOR NEXT VISIT: bowel diary; assess LE strength; internal for dyssnergia; ribs, sitting on ball for PF awareness Patient demonstrates good understanding of plan of care and treatment. The above goals and plan of care were discussed and agreed upon by patient/family. SUBJECTIVE: does not know when she is constipated. +pain and bloating that can stop her form walking. Hoping to avoid ostomy bag. digestive issued 10-15 years. Experimenting with her diet. Started getting kidney stone possible d/t eating too many oxalate veggies. 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 Gall bladder removed emergent d/t pain 30 years. Had a botched tummy tuck (hrs and felt everything...) and went to have it corrected and he also brought her abdominal wall back together and she has has significant trouble since. Pelvic mesh d/t stress urinary incontinence 25 years ago- did well with this Had a vertical 25-30 years ago Hysterectomy 25 years Now has an umbilical hernia (started after throwing med ball into wall). Stopped exercises. Afraid to get another surgery. 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 A lot of hospitalization. Tearful. A lot of joint stiffness. Dad lives with her and he needs physical assistance. L rib cage pain means she has to have a BM. Cannot eat beef bc she cannot digest it. +pencil thin stools Having a harder time getting around. Feels like she is 88 yo when she moves. 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 Intake Information: Prescription present Pain: Pain Pain Level: (rib tension; L side pain so needs to have BM) Post Treatment Pain Post Treatment Pain Level: (abdominal spasming like woke it up ) PROMIS Scales 05/10/2024 04/26/2024 03/20/2024 Higher is Better Phys Func - Score 40 (mild dysfunction) 43 (mild dysfunction) Phys Func - Percentile 16 24 Self-Eff Symptom - Score 46 (Average) 44 (Average) Self-Eff Symptom - Percentile 34 27 T-scores: mean of general population = 50. 5 points is clinically meaningfully difference Percentiles provide an indication of how the patient's score ranks in relation to the general population. Higher percentile rankings indicate better function/quality of life. 50th percentile is the average of the general population and indicates half of respondents had a worse score. OBJECTIVE MEASURES WITH LEVEL OF FUNCTION: Pelvic Floor Births: 2 Difficulty starting stream: No slow or intermittent stream: No strains to void: No Incomplete emptying: No Stress Incontinence: No Post Void Dribble: No Urgency: No Nocturia (times per night) : 3 Daytime Frequency (hours): every 2 Fluid Intake: Water, Tea, Other beverage Water : 60-80 oz Tea : 1 Other beverage : coke zero- 2-3 per week Bowel Movement Frequency: can be every day or every 4 days Bowel Movement Consistency ([place]) : 1: Seperate hard lumps, like nuts, 2: Sausage-shaped but lumpy, 3: Like a sausage or snake but with cracks on its surface, 4: Like a sausage or snake, smooth and soft, 5: Soft blobs with clear cut edges, 6: Fluffy pieces with ragged edges, a mushy stool, 7: Watery, no solid pieces Bloating / abdominal pain: Yes Fecal incontinence: No Bowel Aides / Supplements: senna decousate, miralax Pelvic Floor Manual Assessment Scar Mobility: + adbominal restiction LE Flexibility Flexibility: Hamstring Flexibility, Straight Leg Raise, Hip Abduction, Hip Adductor, Hip Internal Rotation Flexibility, Comments, Hip External Rotation Flexibility R Hip Internal Rotation Flexibility: 5 L Hip Internal Rotation Flexibility: 5 R Hip External Rotation Flexibility: 25 L Hip External Rotation Flexibility: 25 Flexibility Comments: Apical expansion: + pain w minimal pressure; Posterior mediastinum expansions: + LE Strength Trunk Strength: struggled w bridge and sit<>stand d/t pain and wean=kness Education: Education Learning Preferences: Demonstration, Explanation, Performance, Printed Materials Barriers: None Learning/educational needs: Lifestyle changes, Health promotion, Safety, Home exercise program, Plan of Care, Posture, Body Mechanics Education Provided: Yes, see treatment interventions for education provided Education Provided To: Patient Education Mode/Type: Demonstration, Explanation/Discussion, Literature/Printed Materials, Performance Response to Education/Teach Back: States/Identifies, Return Demonstration TREATMENT: PT Treatment Interventions: Therapeutic Exercise, Manual Therapy, Self-Shelter Management Evaluation Therapeutic Exercise: 1: SMFR w tennis wellness trainer balls 2: crocodile breathing 4: Inverted breathing 1 min; cues to breath into back pockets 6: self abdominal massage 2-3 min 8: Seated prayer stretch breathing w elbows together for back body expansion 8x 10: s/l PF breathing awareness 15: *all to HEP Skilled Intervention: Patient was educated in proper exercise technique and purpose for exercises. Reviewed and educated patient on additions/changes for home exercise program as above (*). Skilled judgment was used in selection of appropriate interventions. Provided written instruction for home exercise program to facilitate proper performance and compliance. Manual Therapy: 1: abdominal massage 3 min Skilled Intervention: Manual skills to improve joint mobility, ROM, and decrease pain. Utilized anatomy knowledge of the therapist, and assessment of patient's response to intervention. Self-Shelter Management: 1: Educated re: POC, PF anatomy, PF physiology and function; Pelvis and hip biomechanics influence on PF function, Breathing mechanics 2: Educated re: Bowel anatomy and function, bowel massage, voiding mechanics (ie. Using Julianne breathing and soft belly, encouraged use of squatty potty or stool) 3: reviewed squatty potty 4: strongly encouraged trauma therapist skilled in EMDR and/or hypnotherapy 5: consider functional med for GI concerns 6: add electrolytes to water Skilled Intervention: patient education Billing * Evaluation Moderate Complexity: 1 Unit Therapeutic Exercise Treatment Minutes: 30 Manual TherapyTreatment Minutes: 3 Self-Care/Home Management Treatment Minutes: 30 Skilled Treatment Time Minutes (timed and untimed codes): 96 Total Session Time (minutes): 96 Session Start Time : 1301 Session Stop Time : 1437 Heather Jolly PT DPT documented in this encounterC[facility] NoteHNO ID: [id number] Author: HEATHER JOLLY PT Service: ? Author Type: Physical Therapist Type: Progress Notes Filed: 05/11/2024 15:44 Note Text: Episode Visit Count: 1 Therapist That Will Accept/Oversee The Plan Of Care: Heather Jolly PT, DPT Start of Care Date: 05/11/24 Plan of Care Certification Date: 05/11/24 Next Certification Due Date: 08/09/24 Patient Identified by Name and Date of : Yes REHABILITATION AND SPORTS THERAPY PHYSICAL THERAPY EVALUATION PLAN OF CARE: Assessment: Patient presents with with chief complaint of abdominal pain, constipation, multiple joint aches, declining mobility. Sig medical history; multiple abdominal surgeries with resultant scar tissue. Patient presents with impairments in hip/lumbar/pelvic floor flexibility, independence in exercise, strength, symptom management, breathing mechanics/mobility, muscle coordination, and tissue tenderness. PMH significant for: mult surgeries and medical trauma (see below). She will benefit from skilled therapy services to meet the goals established for this plan of care as noted below. Goals for Episode of Care: established 05/11/24 BLADDER Patient reports NOCTURIA 0-1 times to demonstrate normalized bladder function. BOWEL Patient reports increased ability to FULLY EMPTY bowels without straining at least 90% of the time to normalize bladder/bowel function. Patient reports having 1 bowel movements per day without use of bowel aids to demonstrate improved bowel function. LIFESTYLE Patient will report decreased pain rating by 2 points to meet minimal clinical important difference for numeric pain rating scale. BREATHING Improve back and side body EXPANSION by 50% to improve diaphragm mobility. Patient reports ability to BREATHE INTO PELVIC FLOOR with exercises/function to improve PF/Julianne dynamics and decrease PF tension. Patient displays improved range of motion, coordination, and muscle dynamics of Julianne as evidenced by the ability to inhale without PARADOXICAL CONTRACTION at least 100% of the time to normalize bladder/bowel function; reduce pelvic pain. TBD BIOMECHANICS AND PF MECHANICS Patient will be able to HIP HINGE to be able to demonstrate good glut eccentric strength/mobility for functional activities at a home and to decrease lumbar overuse/injury. Patient will improve hip mobility to WNL so hips are able to better support the pelvic floor so to help decrease pelvic floor symptoms. Patient will have FULL apical EXPANSION and posterior mediastinum expansion to improve diaphragm mechanics so to improve its biomechanical relationship with the pelvic floor. Patient displays DECREASED MUSCLE SPASMS in PF MM's noted in evauation to allow for decreased pain levels, improved bladder/bowel function. TBD Time Frame for Goals and Treatment : 08/09/24 Planned Interventions, Frequency, and Duration: Current Frequency: 1x every other week Duration: 16 weeks Total Number of Visits Planned: 8 Planned Treatment Interventions: Therapeutic exercise (59693), Manual therapy (71311), Self-fpc management (08394), Patient/Family/Caregiver Education PLAN FOR NEXT VISIT: bowel diary; assess LE strength; internal for dyssnergia; ribs, sitting on ball for PF awareness Patient demonstrates good understanding of plan of care and treatment. The above goals and plan of care were discussed and agreed upon by patient/family. SUBJECTIVE: does not know when she is constipated. +pain and bloating that can stop her form walking. Hoping to avoid ostomy bag. digestive issued 10-15 years. Experimenting with her diet. Started getting kidney stone possible d/t eating too many oxalate veggies. 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 Gall bladder removed emergent d/t pain 30 years. Had a botched tummy tuck (hrs and felt everything...) and went to have it corrected and he also brought her abdominal wall back together and she has has significant trouble since. Pelvic mesh d/t stress urinary incontinence 25 years ago- did well with this Had a vertical 25-30 years ago Hysterectomy 25 years Now has an umbilical hernia (started after throwing med ball into wall). Stopped exercises. Afraid to get another surgery. 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 A lot of hospitalization. Tearful. A lot of joint stiffness. Dad lives with her and he needs physical assistance. L rib cage pain means she has to have a BM. Cannot eat beef bc she cannot digest it. +pencil thin stools Having a harder time getting around. Feels like she is 88 yo when she moves. 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 Call to schedule [phone] - Echocardiogram - Allergy & Immunology Follow-up: I will be in touch over [employer] with the lab results Linda Valero MD Department of Rheumatic & Immunologic Diseases Medical Specialties [place] Office: [phone] Appt: [phone] Address: [address] [place] [address] / [address] Central [phone] You can go to any [facility] lab location (link of locations below) for your labs and/or x-rays unless I have told you otherwise. You do not need an appointment for the labs or to bring the labany additional information. If you would like to schedule an appointment, you can call [phone] do so or schedule through [employer]. [email or web address] documented in this [facility] History of Present illness Narrative* Linda Valero MD - 04/27/2024 1:00 PM EST Images from the original note were not included. Rheumatology Clinic New Patient Visit Date of Service: 04/27/2024 Patient: Hank Liu Medical Record: [id number] Primary Care Physician: Trey Brown DO Last Rheumatology visit: 04/27/2024 (with Linda Valero) Consultation requested by Rachael Katz CNP for an opinion regarding polyarthralgia. My final recommendations will be communicated back to the requesting physician by way of shared Medical record or letter to requesting physician via US mail. History of Present Illness Hank Liu is a 53 year old female who presents for an in-person visit for evaluation of positive ARMANI. Previously seen by [facility], last visit 08/2023. Recommended 6 month follow-up for low positive ARMANI, no systems concerning for SLE or other systemic autoimmune process. History of GI carcinoid tumor s/p surgery. Report she's had an inflammation problem for the 2-3 years. This manifest as abdominal swelling -wearing a bra or jeans is very irritating. Has pain with breathing related to this. Not worse when deep breath or cough, not position. But very tender to touch along her ribcage. Stiffness and pain in shoulders, back, neck, abdomen. Fatigue and extreme tiredness. Also has all over bone pain, pain is worse the more she does. Symptoms are persistent. But some days are worse than other - food seems to be a trigger but she is not sure what food triggers her. - She has 10-15 minutes of morning stiffness. Then as the day goes on her symptoms worsen. After 2-3 hours of working, states she has so much inflammation that she can't do anything else. - Occasional finger/knee swelling, not very bothersome to her. States this is from arthritis. - Feels like her torso is very sensitive, anything tight is painful. She does not wear a bra or underwear - Heat aggravates her symptoms. - Fatigue is very severe, worse the more she does. - Sleep is okay, she takes trazodone. - No brain fog. thinks she has been forgetful.Had seen Neurologist for this who said she isokay now but he is going to keep an eye on her. - Reports inflammation is better on prednisone, her swelling and soreness improves. - Ibuprofen helpful too but makes her stomach worse if she takes too much. Abdominal distension/swelling has been attributed to constipation, reports this was seen on x-ray. Lost appetite, has lost 13 pounds over 2.5 weeks. Abdominal pain and nausea is constant. - Symptoms started about 2 years ago, worsened 2 months ago after strep infection and colonoscopy. Pins and needles in right arm (started 6 weeks ago). Loses sensation (pins/needles in her feet whenshe is standing too long). Reports 6 strep infections this year. Diagnosed by strep test at Urgent Care. Left sided headache and earache, swollen glands, mouth ucers. Antibiotics have helped. EGD 03/2024 - gastritis and esophagitis. Pantoprazole caused more bloating. Was on omeprazole and did better. Now on carafate. No Raynaud's. Brother has ankylosing spondylitis. Review of Systems Review of Systems CONSTITUTION: Positive for: Recent weight change Negative for: Fever HEENT: Positive for: Mouth sores Negative for: Nosebleeds, Trouble swallowing and Dry mouth RESPIRATORY: Positive for: Pain with breathing Negative for: Cough and Shortness of breath GASTROINTESTINAL: Positive for: Melena, Diarrhea, Heartburn and Abdominal pain MUSCULOSKELETAL: Positive for: Arthralgias, Myalgias and Morning Joint Stiffness Negative for: Muscle weakness and Joint swelling NEUROLOGICAL: Positive for: Headaches and Numbness Negative for: Memory loss SKIN: Negative for: Rash, Skin changes, Hair loss and Nail changes EYES: Negative for: Eye pain, Eye redness, Eye dryness and visual disturbance CARDIOVASCULAR: Negative for: Chest pain and Leg swelling GENITOURINARY: Negative for: Dysuria and Hematuria HEMATOLOGIC/LYMPHATIC: Positive for: Swollen glands All other reviewed and negative other than HPI. Relevant Data Hank is RF negative - 9 (04/27/2024). Myositis Labs Relevant History Imaging Last CT Chest - Impression Only CT CHEST W IVCON Exam End: 11/30/2023 10:55 AM (Final result) Impression: IMPRESSION: 1. Within the posterior base of the right lower lobe, there are stable linear and nodular opacities. Although nonspecific, these have been present on multiple prior studies and are decreased in extent when compared to a more remote comparison exam from 05/05/2023. These did not demonstrate tracer uptake on the recent dotatate PET CT. These are most likely to be infectious/inflammatory in etiology. Would advise continued close attention on imaging surveillance. No new or enlarging pulmonary nodules.... Last XR Chest - Impression Only XR CHEST 2V FRONTAL/LAT Exam End: 04/20/2023 3:59 PM (Final result) Impression: There are no acute cardiopulmonary changes. ELECTRONICALLY SIGNED BY: Pia Ponce MD ESR, CRP Latest Ref Rng & Units 05/10/2023 04/27/2024 ESR, WSR WSR 0 - 20 mm/hr 5 5 Latest Ref Rng & Units 05/10/2023 04/27/2024 CRP CRP <0.9 mg/dL <0.3 <0.3 Urinalysis Latest Ref Rng & Units 06/26/2019 06/29/2019 Urinalysis PROTEIN UA (POCT) Negative mg/dL Negative Negative Hepatitis Panel, TB Testing Past Medical History PAST MEDICAL HISTORY Diagnosis Date Arthritis Carcinoid tumor of stomach Gall stones GERD (gastroesophageal reflux disease) Hemorrhoids Hyperlipidemia Stomach ulcer UTI (urinary tract infection) Past Surgical History PAST SURGICAL HISTORY Procedure Laterality Date ANESTH, SECTION CHOLECYSTECTOMY COLONOSCOPY 03/22/2016 EGD HYSTERECTOMY HX told she still has cervix, was for bleeding LAP REMOVE/REV MESH BLADDER WALL PAST SURGICAL HISTORY OF 04/2019 breast reconstruction SLEEVE RESECTION STOMACH Family History FAMILY HISTORY Problem Relation Age of Onset Diabetes Mother Colon Cancer Mother 55 detected on autopsy Aneurysm Mother 55 aortic Heart disease Father Hyperlipidemia Father Stroke Father Cancer Brother 48 kidney Cancer Brother spinal cord Social History Social History Tobacco Use Smoking status: Former Current packs/day: 0.00 Types: Cigarettes Quit date: 05/2022 Years since quittin.9 Passive exposure: Current Smokeless tobacco: Never Vaping Use Vaping status: Never Used Substance Use Topics Alcohol use: Not Currently Drug use: No Current Medications Current Outpatient Medications on File Prior to Visit Medication Sig pantoprazole DR (PROTONIX) 40 mg tablet Take 1 tablet by mouth once daily. hyoscyamine SR (LEVBID) 0.375 mg 12 hr tablet Take 1 tablet by mouth two times a day. senna-docusate (SENOKOT-S) 8.6-50 mg per tablet Take 2 tablets by mouth daily at bedtime. rosuvastatin (CRESTOR) 40 mg tablet Take 40 mg by mouth daily at bedtime. traZODone (DESYREL) 100 mg tablet Take 100 mg by mouth daily at bedtime. rOPINIRole (REQUIP) 0.25 mg tablet Take 0.5 mg by mouth once daily as needed. No current facility-administered medications on file prior to visit. Physical Exam BP 125/70 Pulse 99 Temp 36.3 C (97.4 F) (Temporal) Ht 154.9 cm (5' 1 ) Wt 90.5 kg (199 lb 8.3 oz) BMI 37.70 kg/m GENERAL: Well-appearing, no acute distress. HEENT: PERRLA, EOMI. No oral lesions. Moist mucous membranes. No scleral injection or icterus. NODES: No cervical, submandibular, or subclavian LAD HEART: RRR, no murmur LUNGS: CTAB, no increased WOB SKIN: No rash, no excessive bruising, petechiae, or purpura. MSK: Tenderness to palpation along lower ribs and abdomen Spine: No visible abnormalities. Full ROM. No tenderness to palpation. Upper extremities: Normal inspection of joints. Shoulder, elbows, wrists, and hand joints without synovitis, swelling, tenderness, deformity, or lack of ROM. Lower extremities: Normal inspection of joints. Hips, knees, ankles, and feet without synovitis, swelling, tenderness, deformity, or lack of ROM. Impression and Plan (M89.8X9) Bone pain (primary encounter diagnosis) (R19.00) Abdominal swelling (B99.9) Recurrent infections 53-year-old female presenting for rheumatologic evaluation of bone pain, abdominal swelling/sensitivity, recurrent infections, and positive ARMANI. My clinical suspicion for a systemic autoimmune disease is low at this time. Patient does not have any definitive clinical or laboratory evidence indicating a systemic autoimmune disorder based on myhistory, exam, and review of available diagnostics today. Her main symptoms of abdominal swelling/sensitivity and bone pain without associated morning stiffness, joint swelling, and worse with activity are not typical features of autoimmune disease. Of note, her GI symptoms can be attributed to recent EGD with gastritis and esophagitis. While the patient does have a positive ARMANI, this is of unknown clinical significance and is not specific for autoimmune disease as up to 25 percent of the healthy population may have a positive ARMANI. As of today, she does not have evidence for an ARMANI-associated rheumatologic disorder - specifically,no inflammatory arthritis, photosensitive rash, cytopenias, or pleurisy to indicate systemic lupus erythematosus; no severe sicca symptoms as seen in Sjogren's Syndrome; no skin thickening, Raynaud's, GI dysmotility, telangiectasias, or calcinosis to raise concern for systemic sclerosis; proximal no muscle weakness, signs/symptoms of ILD, characteristic rashes to suggest inflammatory myopathy. The etiology of her abdominal swelling/sensitivity with associated bone pain is this area is unclear. Considered if this could be pleuritis/pleurisy although recent CT Chest was negative for effusion, and her symptoms are not pleuritic (not worsening with inspiration, coughing, etc and not associated with position). CT A/P also done recently and unrevealing for an etiology. Will obtain echocardiogram given her described sense of fullness which can be seen in cardiac dysfunction (and could also lead to GI symptoms). Regarding her recurrent strep infection this year, I am unable to see testing results to see if these were truly separate infections. Recommended Allergy & Immunology evaluation for potential immunodeficiency given recurrent infections (both strep and pneumonia per patient report). If she is truly having recurrent strep infections and does not have an immunodeficiency, then ID evaluation would be appropriate. Plan - Diagnostics as below - Echocardiogram - Referral to Allergy & Immunology Patient will follow-up pending results. Orders this visit: Office Visit on 04/27/24 C4 COMPLEMENT C3 COMPLEMENT ARMANI BY IFA WITH REFLEX RHEUMATOID FACTOR C-REACTIVE PROTEIN CCP ANTIBODY IGG SEDIMENTATION RATE, WESTERGREN VITAMIN D 25 HYDROXY CONSULT TO ALLERGY/IMMUNOLOGY esomeprazole (NEXIUM) 40 mg capsule cefUROXime (CEFTIN) 500 mg tablet ECHO CC: PCP: Trey Brown DO [address] [facility] [address] [facility] [address] Phone #: [phone] I spent a total of 55 minutes on the date of the service which included preparing to see the patient, [id number] patient care, completing clinical documentation, obtaining and/or reviewing separately obtained history, performing a medically appropriate examination, counseling and educating the pat ient/family/caregiver, and ordering medications, tests, or procedures. Linda Valero MD Department of Rheumatic & Immunologic Diseases Medical Specialties [place] Medical Decision Making: Medical Decision Making Level: 1 - N/A documented in this encounterC[facility] NoteHNO ID: [id number] Author: LINDA VALERO MD Service: ? Author Type: Physician Type: Progress Notes Filed: 04/29/2024 18:33 Note Text: Rheumatology Clinic New Patient Visit Date of Service: 04/27/2024 Patient: Hank Liu Medical Record: [id number] Primary Care Physician: Trey Brown DO Last Rheumatology visit: 04/27/2024 (with Linda Valero) Consultation requested by Rachael Katz CNP for an opinion regarding polyarthralgia. My final recommendations will be communicated back to the requesting physician by way of shared Medical record or letter to requesting physician via US mail. History of Present Illness Hank Liu is a 53 year old female who presents for an in-person visit for evaluation of positive ARMANI. Previously seen by [facility], last visit 08/2023. Recommended 6 month follow-up for low positive ARMAIN, no systems concerning for SLE or other systemic autoimmune process. History of GI carcinoid tumor s/p surgery. Report she's had an inflammation problem for the 2-3 years. This manifest as abdominal swelling - wearing a bra or jeans is very irritating. Has pain with breathing related to this. Not worse when deep breath or cough, not position. But very tender to touch along her ribcage. Stiffness and pain in shoulders, back, neck, abdomen. Fatigue and extreme tiredness. Also has all over bone pain, pain is worse the more she does. Symptoms are persistent. But some days are worse than other - food seems to be a trigger but she is not sure what food triggers her. - She has 10-15 minutes of morning stiffness. Then as the day goes on her symptoms worsen. After 2-3 hours of working, states she has so much inflammation that she can't do anything else. - Occasional finger/knee swelling, not very bothersome to her. States this is from arthritis. - Feels like her torso is very sensitive, anything tight is painful. She does not wear a bra or underwear - Heat aggravates her symptoms. - Fatigue is very severe, worse the more she does. - Sleep is okay, she takes trazodone. - No brain fog. thinks she has been forgetful.Had seen Neurologist for this who said she is okay now but he is going to keep an eye on her. - Reports inflammation is better on prednisone, her swelling and soreness improves. - Ibuprofen helpful too but makes her stomach worse if she takes too much. Abdominal distension/swelling has been attributed to constipation, reports this was seen on x-ray. Lost appetite, has lost 13 pounds over 2.5 weeks. Abdominal pain and nausea is constant. - Symptoms started about 2 years ago, worsened 2 months ago after strep infection and colonoscopy. Pins and needles in right arm (started 6 weeks ago). Loses sensation (pins/needles in her feet when she is standing too long). Reports 6 strep infections this year. Diagnosed by strep test at Urgent Care. Left sided headache and earache, swollen glands, mouth ucers. Antibiotics have helped. EGD 03/2024 - gastritis and esophagitis. Pantoprazole caused more bloating. Was on omeprazole and did better. Now on carafate. No Raynaud's. Brother has ankylosing spondylitis. Review of Systems Review of Systems CONSTITUTION: Positive for: Recent weight change Negative for: Fever HEENT: Positive for: Mouth sores Negative for: Nosebleeds, Trouble swallowing and Dry mouth RESPIRATORY: Positive for: Pain with breathing Negative for: Cough and Shortness of breath GASTROINTESTINAL: Positive for: Melena, Diarrhea, Heartburn and Abdominal pain MUSCULOSKELETAL: Positive for: Arthralgias, Myalgias and Morning Joint Stiffness Negative for: Muscle weakness and Joint swelling NEUROLOGICAL: Positive for: Headaches and Numbness Negative for: Memory loss SKIN: Negative for: Rash, Skin changes, Hair loss and Nail changes EYES: Negative for: Eye pain, Eye redness, Eye dryness and visual disturbance CARDIOVASCULAR: Negative for: Chest pain and Leg swelling GENITOURINARY: Negative for: Dysuria and Hematuria HEMATOLOGIC/LYMPHATIC: Positive for: Swollen glands All other reviewed and negative other than HPI. Relevant Data Hank is RF negative - 9 (04/27/2024). Myositis Labs Relevant History Imaging Last CT Chest - Impression Only CT CHEST W IVCON Exam End: 11/30/2023 10:55 AM (Final result) Impression: IMPRESSION: 1. Within the posterior base of the right lower lobe, there are stable linear and nodular opacities. Although nonspecific, these have been present on multiple prior studies and are decreased in extent when compared to a more remote comparison exam from 05/05/2023. These did not demonstrate tracer uptake on the recent dotatate PET CT. These are most likely to be infectious/inflammatory in etiology. Would advise continued close attention on imaging surveillance. No new or enlarging pulmonary nodules.... Last XR Chest - Impression Only XR CHEST 2V FRONTAL/LAT Exam End: (more content not included)... [facility]12-19-2024 Telephone encounter Note* Telephone Encounter - Guadalupe Baez - 04/26/2024 2:49 PM EST Hank is calling Naty Booker Jr., DO today to request medication. Pt states that she has had stomach pain since her EGD/ Colonoscopy. States that it feels like her stomach is on fire She is on antibiotics at this time as well. Please call to advise Pharm: Daquan Juárez Patient has been identified by name and birthdate. Duration of symptoms: N/A Person calling: self Call patient at: at home [phone] (home) [phone] (cell) Was an appointment scheduled: No Closing statement: Results or non-symptom based questions: Thank you for calling [facility], your call will be returned within the next business day. Guadalupe Baez [facility]12-19-2024 Miscellaneous Notes* Telephone Encounter - Guadalupe Baez - 04/26/2024 2:49 PM EST Hank is calling Naty Booker Jr., DO today to request medication. Pt states that she has had stomach pain since her EGD/ Colonoscopy. States that it feels like her stomach is on fire She is on antibiotics at this time as well. Please call to advise Pharm: Daquan Juárez Patient has been identified by name and birthdate. Duration of symptoms: N/A Person calling: self Call patient at: at home [phone] (home) [phone] (cell) Was an appointment scheduled: No Closing statement: Results or non-symptom based questions: Thank you for calling [facility], your call will be returned within the next business day. Guadalupe Baez documented in this encounterC[facility]12[facility] Hospital Discharge instructions Patient Education 04/25/2024 14:39:10 Kidney Stones, [id number]-pa-Tqck Kidney Stones Kidney stones are rock-like masses that form inside of the kidneys. Kidneys are organs that make pee (urine). A kidney stone may move into other parts of the urinary tract, including: The tubes that connect the kidneys to the bladder (ureters). The bladder. The tube that carries urine out of the body (urethra). Kidney stones can cause very bad pain and can block the flow of pee. The stone usually leaves your body through your pee. A doctor may need to take out the stone. What are the causes? Kidney stones may be caused by: Too much calcium in the body. This may be caused by too much parathyroid hormone in the blood. Uric acid crystals in the bladder. The body makes uric acid when you eat certain foods. Narrowing of one or both of the ureters. A kidney blockage that you were born with. Past surgery on the kidney or the ureters. What increases the risk? You are more likely to develop this condition if: You have had a kidney stone in the past. Other people in your family have had kidney stones. You do not drink enough water. You eat a diet that is high in protein, salt (sodium), or sugar. You are very overweight (obese). What are the signs or symptoms? Symptoms of a kidney stone may include: Pain in the side of the belly, right below the ribs. Pain usually spreads to the groin. Needing to pee often or right away. Pain when peeing. Blood in your pee. Feeling like you may vomit (nauseous). Vomiting. Fever and chills. How is this treated? Treatment depends on the size, location, and makeup of the kidney stones. The stones will often pass out of the body when you pee. You may need to: Drink more fluid to help pass the stone. ?In some cases, you may be given fluids through an IV tube at the hospital. Take medicine for pain. Change your diet to help keep kidney stones from coming back. Sometimes, you may need: A procedure to break up kidney stones using a beam of light (laser) or shock waves. Surgery to remove the kidney stones. Follow these instructions at home: Medicines Take fmip-avr-mjtmuxe and prescription medicines only as told by your doctor. Ask your doctor if the medicine prescribed to you requires you to avoid driving or using machinery. Eating and drinking Drink enough fluid to keep your pee pale yellow. ?You may be told to drink at least 8 10 glasses of water each day. This will help you pass the stone. If told by your doctor, change your diet. You may be told to: ?Limit how much salt you eat. ?Eat more fruits and vegetables. ?Limit how much meat, poultry, fish, and eggs you eat. Follow instructions from your doctor about what you may eat and drink. General instructions Collect pee samples as told by your doctor. You may need to collect a pee sample: ?24 hours after a stone comes out. ?8 12 weeks after a stone comes out, and every 6 12 months after that. Strain your pee every time you pee. Use the strainer that your doctor recommends. Do not throw out the stone. Keep it so that it can be tested by your doctor. Keep all follow-up visits. You may need X-rays and ultrasounds to make sure the stone has come out. How is this prevented? To prevent another kidney stone: Drink enough fluid to keep your pee pale yellow. This is the best way to prevent kidney stones. Eat healthy foods. Avoid certain foods as told by your doctor. You may be told to eat less protein. Stay at a healthy weight. Where to find more information National [employer] (NKF): kidney.org [facility] ([facility]): urologyhealth.org Contact a doctor if: You have pain that gets worse or does not get better with medicine. Get help right away if: You have a fever or chills. You get very bad pain. You get new pain in your belly. You faint. You cannot pee. This information is not intended to replace advice given to you by your health care provider. Make sure you discuss any questions you have with your health care provider. Document Revised: 12/17/2022 Document Reviewed: 12/17/2022 [employer] Patient Education 2023 [employer]. Follow Up Care 02/03/2024 09:13:49 With:[facility] Address: When: Unknown Comments:Only if needed/new problems arise. No scheduled appointment indicated at this time. [facility] 12-18-2024 NotePatient Education Urology Kidney Stones Kidney stones are rock-like masses that form inside of the kidneys. Kidneys are organs that make pee (urine). A kidney stone may move into other parts of the urinary tract, including: ??? The tubes that connect the kidneys to the bladder (ureters). ??? The bladder. ??? The tube that carries urine out of the body (urethra). Kidney stones can cause very bad pain and can block the flow of pee. The stone usually leaves your body through your pee. A doctor may need to take out the stone. What are the causes? Kidney stones may be caused by: ??? Too much calcium in the body. This may be caused by too much parathyroid hormone in the blood. ??? Uric acid crystals in the bladder. The body makes uric acid when you eat certain foods. ??? Narrowing of one or both of the ureters. ??? A kidney blockage that you were born with. ??? Past surgery on the kidney or the ureters. What increases the risk? You are more likely to develop this condition if: ??? You have had a kidney stone in the past. ??? Other people in your family have had kidney stones. ??? You do not drink enough water. ??? You eat a diet that is high in protein, salt (sodium), or sugar. ??? You are very overweight (obese). What are the signs or symptoms? Symptoms of a kidney stone may include: ??? Pain in the side of the belly, right below the ribs. Pain usually spreads to the groin. ??? Needing to pee often or right away. ??? Pain when peeing. ??? Blood in your pee. ??? Feeling like you may vomit (nauseous). ??? Vomiting. ??? Fever and chills. How is this treated? Treatment depends on the size, location, and makeup of the kidney stones. The stones will often pass out of the body when you pee. You may need to: ??? Drink more fluid to help pass the stone. ? In some cases, you may be given fluids through an IV tube at the hospital. ??? Take medicine for pain. ??? Change your diet to help keep kidney stones from coming back. Sometimes, you may need: ??? A procedure to break up kidney stones using a beam of light (laser) or shock waves. ??? Surgery to remove the kidney stones. Follow these instructions at home: Medicines ??? Take omhx-gzr-ggsnnom and prescription medicines only as told by your doctor. ??? Ask your doctor if the medicine prescribed to you requires you to avoid driving or using machinery. Eating and drinking ??? Drink enough fluid to keep your pee pale yellow. ? You may be told to drink at least 8?10 glasses of water each day. This will help you pass the stone. ??? If told by your doctor, change your diet. You may be told to: ? Limit how much salt you eat. ? Eat more fruits and vegetables. ? Limit how much meat, poultry, fish, and eggs you eat. ??? Follow instructions from your doctor about what you may eat and drink. General instructions ??? Collect pee samples as told by your doctor. You may need to collect a pee sample: ? 24 hours after a stone comes out. ? 8?12 weeks after a stone comes out, and every 6?12 months after that. ??? Strain your pee every time you pee. Use the strainer that your doctor recommends. ??? Do not throw out the stone. Keep it so that it can be tested by your doctor. ??? Keep all follow-up visits. You may need X-rays and ultrasounds to make sure the stone has come out. How is this prevented? To prevent another kidney stone: ??? Drink enough fluid to keep your pee pale yellow. This is the best way to prevent kidney stones. ??? Eat healthy foods. ??? Avoid certain foods as told by your doctor. You may be told to eat less protein. ??? Stay at a healthy weight. Where to find more information ??? National Kidney Foundation (NKF): kidney.org ??? [facility] (UCF): urologyhealth.org Contact a doctor if: ??? You have pain that gets worse or does not get better with medicine. Get help right away if: ??? You have a fever or chills. ??? You get very bad pain. ??? You get new pain in your belly. ??? You faint. ??? You cannot pee. This information is not intended to replace advice given to you by your health care provider. Make sure you discuss any questions you have with your health care provider. Document Revised: 12/17/2022 Document Reviewed: 12/17/2022 [email or web address] Patient Education ? 2023 [employer].[facility] 04-24-2024 Telephone encounter Note* Telephone Encounter - Lavinia Serrano - 04/24/2024 4:34 PM EST Called and lvm for patient to schedule [id number] Miscellaneous Notes* Telephone Encounter - Lavinia Serrano - 04/24/2024 4:34 PM EST Called and lvm for patient to schedule * Telephone Encounter - Lavinia Serrano - 04/24/2024 1:15 PM EST Patient called stating that today she tested positive for Strep which is the 4th time in the last 6months and she states that her stomach is super sick from the antibiotics. Patient would like to beseen by PCP. What would you like us to do? documented in this encounterSamaritan [id number] Evaluation note* Diagnosis Onset Date Resolution Status Admit Date Strep throat acute April 12:17pm History of tobacco abuse acute May 17, 2024 2:16pm Multiple pulmonary nodules acute May 17, 2024 2:16pm Obesity acute May 17, 2 025 2:16pm Recurrent respiratory infection acute May 17 2:16pm Strep throat acute May 1:39pm Acute pharyngitis noneactive May 23, 2024 9:03am Strep throat acute June 1:48pm Urinary frequency acute ua2024 1:48pm [facility] Work Phone: 1(727) 129-946312-17-2024 Evaluation note* Diagnosis Onset Date Resolution Status Admit Date Strep throat acute April 12:17pm History of tobacco abuse acute May 17, 2024 2:16pm Multiple pulmonary nodules acute May 17, 2024 2:16pm Obesity acute May 17, 2 025 2:16pm Recurrent respiratory infection acute May 17 2:16pm Strep throat acute May 1:39pm Acute pharyngitis noneactive May 23, 2024 9:03am Strep throat acute June 1:48pm Urinary frequency acute Februar 2024 1:48pm Fatigue acute July 16 2:11pm Recurrent streptococcal pharyngitis acute July 16, 2024 2:11pm [facility] Work Phone: 1(566) 854-601112-17-2024 Telephone encounter Note* Telephone Encounter - Lavinia Serrano - 04/24/2024 1:15 PM EST Patient called stating that today she tested positive for Strep which is the 4th time in the last 6months and she states that her stomach is super sick from the antibiotics. Patient would like to beseen by PCP. What would you like us to do? [id number] Evaluation note* Diagnosis Onset Date Resolution Status Admit Date Cervical neck pain with evidence of disc disease acute Decembe r 2023 10:11am Strep throat acute April 12:17pm History of tobacco abuse acute May 17, 2024 2:16pm Multiple pulmonary nodules acute May 17, 2024 2:16pm Obesity acute May 17, 2 025 2:16pm Recurrent respiratory infection acute May 17 2:16pm Strep throat acute May 1:39pm Acute pharyngitis noneactive May 23, 2024 9:03am Strep throat acute June 1:48pm Urinary frequency acute ua2024 1:48pm [facility] Work Phone: 1(407) 297-725711-29-2024 Evaluation note* Diagnosis Onset Date Resolution Status Admit Date Strep throat acute March 10:50am Cervical neck pain with evidence of disc disease acute Decembe r 2023 10:11am Strep throat acute April 12:17pm BMI 37.0-37.9, adult acute Leonides amelie 2024 2:16pm History of tobacco abuse acute May 17, 2024 2:16pm Multiple pulmonary nodules acute May 17, 2024 2:16pm Obesity acute May 17, 2 025 2:16pm Recurrent respiratory infection acute May 17 2:16pm [facility] Work Phone: 1(568) 957-801211-29-2024 Evaluation note* Diagnosis Onset Date Resolution Status Admit Date Strep throat acute March 10:50am Cervical neck pain with evidence of disc disease acute Decembe r 2023 10:11am Strep throat acute April 12:17pm History of tobacco abuse acute May 17, 2024 2:16pm Multiple pulmonary nodules acute May 17, 2024 2:16pm Obesity acute May 17, 2 025 2:16pm Recurrent respiratory infection acute May 17 2:16pm [facility] Work Phone: 1(533) 268-653611-29-2024 Evaluation note* Diagnosis Onset Date Resolution Status Admit Date Strep throat acute March 10:50am Cervical neck pain with evidence of disc disease acute Decembe r 2023 10:11am Strep throat acute April 12:17pm History of tobacco abuse acute May 17, 2024 2:16pm Multiple pulmonary nodules acute May 17, 2024 2:16pm Obesity acute May 17, 2 025 2:16pm Recurrent respiratory infection acute May 17 2:16pm Strep throat acute May 1:39pm [facility] Work Phone: 1(250) 369-466711-29-2024 Evaluation note* Diagnosis Onset Date Resolution Status Admit Date Strep throat acute March 10:50am Cervical neck pain with evidence of disc disease acute Decembe r 2023 10:11am Strep throat acute April 12:17pm History of tobacco abuse acute May 17, 2024 2:16pm Multiple pulmonary nodules acute May 17, 2024 2:16pm Obesity acute May 17, 2 025 2:16pm Recurrent respiratory infection acute May 17 2:16pm Strep throat acute May 1:39pm Acute pharyngitis noneactive May 23, 2024 9:03am [facility] Work Phone: 1(989) 870-902911-21-2024 History and physical note* Naty Booker Jr., DO - 03/29/2024 1:30 PM EST HISTORY AND PHYSICAL EXAMINATION SERVICE DATE: 03/29/2024 SERVICE TIME: 12:44 PM Chief Complaint: abd pain HPI:This is a 53 year old female with history of carcinoid of the stomach / duodenum, peptic ulcer disease, exocrine pancreatic insufficiency presenting with generalized bloating and abd pain and diarrhea. Food makes symptoms worse. She remains on Nexium, Creon, and Bentyl. Failed Carafate, Levbid.EGD and colonoscopy done one year ago. Family history of colon cancer (mother). TSH, gastrin, urinestudies for 5-HIAA, and celiac were negative. PAST MEDICAL HISTORY Diagnosis Date Arthritis Carcinoid tumor of stomach Gall stones GERD (gastroesophageal reflux disease) Hemorrhoids Hyperlipidemia Stomach ulcer UTI (urinary tract infection) PAST SURGICAL HISTORY Procedure Laterality Date ANESTH, SECTION CHOLECYSTECTOMY COLONOSCOPY 03/22/2016 EGD HYSTERECTOMY HX told she still has cervix, was for bleeding LAP REMOVE/REV MESH BLADDER WALL PAST SURGICAL HISTORY OF 04/2019 breast reconstruction SLEEVE RESECTION STOMACH FAMILY HISTORY Problem Relation Age of Onset Diabetes Mother Colon Cancer Mother 55 detected on autopsy Aneurysm Mother 55 aortic Heart disease Father Hyperlipidemia Father Stroke Father Cancer Brother 48 kidney Cancer Brother spinal cord Social History Tobacco Use Smoking status: Former Current packs/day: 0.00 Types: Cigarettes Quit date: 05/2022 Years since quittin.8 Passive exposure: Current Smokeless tobacco: Never Vaping Use Vaping status: Never Used Substance Use Topics Alcohol use: Not Currently Drug use: No (Not in a hospital admission) ALLERGIES Allergen Reactions Iodine Hives, Anaphylaxis, Shortness of Breath Other reaction(s): anaphylaxis Other reaction(s): Unknown Atorvastatin Other: See Comments Other Reaction(s): arthralgia/myalgia Bupropion Other: See Comments Other Reaction(s): Other: See Comments Iodinated Contrast * Hives, Other: See Comments, Shortness of Breath Other reaction(s): Difficulty Breathing Other Reaction(s): Difficulty Breathing, Other: See Comments Other reaction(s): Difficulty Breathing Mirtazapine Hives, Other: See Comments Nalbuphine Shortness of Breath, Other: See Comments, Myalgia Other Reaction(s): muscle spams, and breathing, Unknown Nubain [Nalbuphine * Unknown COMPLETE REVIEW OF SYSTEMS: GENERAL: No weight loss, malaise or fevers RESPIRATORY: Negative for cough, hemoptysis, wheezing, COPD, dyspnea or shortness of breath CARDIOVASCULAR: Negative for chest pain, leg swelling, hypertension, CHF or palpitations GI: Positive for abdominal discomfort , diarrhea BP 138/70 Pulse 81 Resp 16 Ht 5' 1 (1.55m) Wt 200 lb (90.7kg) SpO2 97% BMI 37.81 kg/(m^2). O2 Therapy: Room Air PHYSICAL EXAM: Physical Exam Performed: GENERAL: Alert, no distress, cooperative LUNGS: Lungs clear to auscultation, Good diaphragmatic excursion CARDIAC: Normal S1 and S2; no rubs, murmurs, or gallops ABDOMEN: Abdomen soft, non-tender, BS normal, No masses or organomegaly EXTREMITIES: Extremities normal, no deformities, edema, clubbing or skin discoloration. Good capillary refill., No ulcers (D3A.098) GI carcinoid tumor Plan: EGD DIAGNOSTIC, EGD DIAGNOSTIC (R19.7) Diarrhea, unspecified type Plan: COLONOSCOPY DIAGNOSTIC, COLONOSCOPY DIAGNOSTIC (Z80.0) Family history of colon cancer Plan: COLONOSCOPY DIAGNOSTIC, COLONOSCOPY DIAGNOSTIC SIGNATURE: Naty Booker Jr., DO PATIENT NAME: Hank Liu DATE: March 29, 2024 TIME: 12:44 PM PAGER/CONTACT #: [facility]11-21-2024 History and physical note* Naty Booker Jr., DO - 03/29/2024 1:30 PM EST HISTORY AND PHYSICAL EXAMINATION SERVICE DATE: 03/29/2024 SERVICE TIME: 12:44 PM Chief Complaint: abd pain HPI:This is a 53 year old female with history of carcinoid of the stomach / duodenum, peptic ulcer disease, exocrine pancreatic insufficiency presenting with generalized bloating and abd pain and diarrhea. Food makes symptoms worse. She remains on Nexium, Creon, and Bentyl. Failed Carafate, Levbid.EGD and colonoscopy done one year ago. Family history of colon cancer (mother). TSH, gastrin, urinestudies for 5-HIAA, and celiac were negative. PAST MEDICAL HISTORY Diagnosis Date Arthritis Carcinoid tumor of stomach Gall stones GERD (gastroesophageal reflux disease) Hemorrhoids Hyperlipidemia Stomach ulcer UTI (urinary tract infection) PAST SURGICAL HISTORY Procedure Laterality Date ANESTH, SECTION CHOLECYSTECTOMY COLONOSCOPY 03/22/2016 EGD HYSTERECTOMY HX told she still has cervix, was for bleeding LAP REMOVE/REV MESH BLADDER WALL PAST SURGICAL HISTORY OF 04/2019 breast reconstruction SLEEVE RESECTION STOMACH FAMILY HISTORY Problem Relation Age of Onset Diabetes Mother Colon Cancer Mother 55 detected on autopsy Aneurysm Mother 55 aortic Heart disease Father Hyperlipidemia Father Stroke Father Cancer Brother 48 kidney Cancer Brother spinal cord Social History Tobacco Use Smoking status: Former Current packs/day: 0.00 Types: Cigarettes Quit date: 05/2022 Years since quittin.8 Passive exposure: Current Smokeless tobacco: Never Vaping Use Vaping status: Never Used Substance Use Topics Alcohol use: Not Currently Drug use: No (Not in a hospital admission) ALLERGIES Allergen Reactions Iodine Hives, Anaphylaxis, Shortness of Breath Other reaction(s): anaphylaxis Other reaction(s): Unknown Atorvastatin Other: See Comments Other Reaction(s): arthralgia/myalgia Bupropion Other: See Comments Other Reaction(s): Other: See Comments Iodinated Contrast * Hives, Other: See Comments, Shortness of Breath Other reaction(s): Difficulty Breathing Other Reaction(s): Difficulty Breathing, Other: See Comments Other reaction(s): Difficulty Breathing Mirtazapine Hives, Other: See Comments Nalbuphine Shortness of Breath, Other: See Comments, Myalgia Other Reaction(s): muscle spams, and breathing, Unknown Nubain [Nalbuphine * Unknown COMPLETE REVIEW OF SYSTEMS: GENERAL: No weight loss, malaise or fevers RESPIRATORY: Negative for cough, hemoptysis, wheezing, COPD, dyspnea or shortness of breath CARDIOVASCULAR: Negative for chest pain, leg swelling, hypertension, CHF or palpitations GI: Positive for abdominal discomfort , diarrhea BP 138/70 Pulse 81 Resp 16 Ht 5' 1 (1.55m) Wt 200 lb (90.7kg) SpO2 97% BMI 37.81 kg/(m^2). O2 Therapy: Room Air PHYSICAL EXAM: Physical Exam Performed: GENERAL: Alert, no distress, cooperative LUNGS: Lungs clear to auscultation, Good diaphragmatic excursion CARDIAC: Normal S1 and S2; no rubs, murmurs, or gallops ABDOMEN: Abdomen soft, non-tender, BS normal, No masses or organomegaly EXTREMITIES: Extremities normal, no deformities, edema, clubbing or skin discoloration. Good capillary refill., No ulcers (D3A.098) GI carcinoid tumor Plan: EGD DIAGNOSTIC, EGD DIAGNOSTIC (R19.7) Diarrhea, unspecified type Plan: COLONOSCOPY DIAGNOSTIC, COLONOSCOPY DIAGNOSTIC (Z80.0) Family history of colon cancer Plan: COLONOSCOPY DIAGNOSTIC, COLONOSCOPY DIAGNOSTIC SIGNATURE: Naty Booker Jr., DO PATIENT NAME: Hank Liu DATE: March 29, 2024 TIME: 12:44 PM PAGER/CONTACT #: [facility] Nurse Note* Andra Aponte RN - 03/29/2024 12:30 PM EST PRE OP LEARNING ASSESSMENT PROCEDURE/SURGERY: GI PROCEDURES: Colonoscopy and EGD READINESS TO LEARN COGNITIVE ABILITY: Alert and oriented MOTIVATION TO LEARN: Interested FAMILY SUPPORT: High - Very involved in pt care PATIENT LEARNS BEST BY: Written Instruction - Hand-outs Verbal Instruction FACTORS AFFECTING LEARNING: None PHYSICAL LIMITATIONS AFFECTING LEARNING: None Electronically Signed By: Andra Aponte RN In Department: [facility]11-21-2024 Nurse Note* Andra Aponte RN - 03/29/2024 12:30 PM EST PRE OP LEARNING ASSESSMENT PROCEDURE/SURGERY: GI PROCEDURES: Colonoscopy and EGD READINESS TO LEARN COGNITIVE ABILITY: Alert and oriented MOTIVATION TO LEARN: Interested FAMILY SUPPORT: High - Very involved in pt care PATIENT LEARNS BEST BY: Written Instruction - Hand-outs Verbal Instruction FACTORS AFFECTING LEARNING: None PHYSICAL LIMITATIONS AFFECTING LEARNING: None Electronically Signed By: Andra Aponte RN In Department: [facility] documented in this encounterC[facility] Telephone encounter Note * Telephone Encounter - Heather Bey RN - 03/28/2024 1:37 PM EST Ok to move her up or If she shows up in the morning, I will try to work her in. Naty Booker Jr., DO Please see Dr. Booker response to pt wanting to be moved to earlier slot for tomorrow. Please call pt. Thank you. Heather Bey RN [facility]11-20-2024 Miscellaneous Notes* Telephone Encounter - Heather Bey RN - 03/28/2024 1:37 PM EST Ok to move her up or If she shows up in the morning, I will try to work her in. Naty Booker Jr., DO Please see Dr. Booker response to pt wanting to be moved to earlier slot for tomorrow. Please call pt. Thank you. Heather Bey RN * Telephone Encounter - Heather Bey RN - 03/28/2024 12:13 PM EST Tosin and Dr. Booker, please see attached message. Any chance pt can be scheduled earlier for procedure? Please advise. Heather Bey RN * Telephone Encounter - Lesa Conley RN - 03/28/2024 10:24 AM EST Patient is calling today requesting an earlier appointment for her procedure tomorrow with Dr. Booker if possible. She is scheduled for 1:30 pm. She starts her prep today at 5 pm and reports that she is already not feeling well with only having liquids. Encouraged patient to try jello, broths, gatorade, gingerale. [facility] in [facility] Telephone encounter Note * Telephone Encounter - Heather Bey RN - 03/28/2024 12:13 PM EST Tosin and Dr. Booker, please see attached message. Any chance pt can be scheduled earlier for procedure? Please advise. Heather Bey RN [facility]11-20-2024 Telephone encounter Note* Telephone Encounter - Lesa Conley RN - 03/28/2024 10:24 AM EST Patient is calling today requesting an earlier appointment for her procedure tomorrow with Dr. Booker if possible. She is scheduled for 1:30 pm. She starts her prep today at 5 pm and reports that she is already not feeling well with only having liquids. Encouraged patient to try jello, broths, gatorade, gingerale. [facility]11-19-2024 History of Present illness Narrative* Karla Berger Vitaliy, LABELING STRATEGIST-PHLEBOTOMY SERVICES TECHNICIAN - 03/27/2024 1:40 PM EST Skin Check Location: Patient requests a full body skin examination Dermatologic history: history of Actinic Keratosis Last visit: 10/2021 Established patient Lesions: Location: scalp and body Duration: year Quality: denies pain, denies itch, denies bleeding Modifying factors: none Associated symptoms: red bump Treatments: none All pertinent medical history, medications, and allergies were reviewed. General Exam: alert, oriented to person, place, and time, normal affect, well appearing Unaccompanied Areas not examined despite medical recommendation: Scalp, Examined Right leg Examined Head, Face Examined Left leg Examined Neck Examined Right foot Examined Chest Examined Left foot Examined Back Examined Buttocks Examined Abdomen Examined Digits,nails: Examined Right arm Examined Patient wearing nail bahamian, Denies dark streaks on toenails Left arm Examined Lymphatics: Not examined Hands Examined 1. Melanocytic nevus of trunk (2) Left Breast, Torso - Posterior (Back) Scattered benign appearing, regular brown to light brown melanocytic papules and macules with similar morphology Counseled regarding these benign growths. Rarely, a nevus can develop into malignant melanoma, so any changing nevi should be promptly re-evaluated. 2. Melanocytic nevus of upper extremity, unspecified laterality Scattered benign appearing, regular brown to light brown melanocytic papules and macules with similar morphology Counseled regarding these benign growths. Rarely, a nevus can develop into malignant melanoma, so any changing nevi should be promptly re-evaluated. 3. Seborrheic keratosis Abdomen (Lower Torso, Anterior) Stuck on verrucous, manning-brown papules and plaques. Patient was counseled regarding these benign growths. Removal is normally not necessary, but they may be removed if they are symptomatic or for cosmetic reasons. 4. Dermatofibroma (2) Left Lower Leg - Anterior (2) Firm brown papule that dimples with lateral pressure. Discussed that these are benign scars on the skin. If lesion is changing/symptomatic, return to office to have lesion re-evaluated 5. Pilar cyst of scalp Scalp multiple subcutaneous, mobile nodule WITHOUT central punctum. Patient was counseled regarding cysts. Although benign, cysts often slowly enlarge and can occasionally become inflamed. Discussed the only way to definitively diagnose the lesion would be to have itremoved and tested. Discussed treatment options including observation vs. excision. Patient elected for observation. Notify office if lesion is enlarging or becomes symptomatic. 6. Capillary angioma Scattered hammer-red papule(s). The patient was informed that angiomas are benign growths on the the skin. No treatment is necessary. 7. Lentigines Scattered manning macules in sun-exposed areas. The patient was informed that lentigines are benign pigmented lesions that occur on sun-exposed andsun-damaged skin. No treatment is necessary. Recommended regular use of broad spectrum sunscreen SPF 30 or higher Next Visit: 1 year skin exam documented in this encounterSamaritan [id number] History of Present illness Narrative* Elida Fung MS - 03/20/2024 6:00 PM EST [facility] Department of Medical Genetics Consultation Note Genetic Counselor: Elida Fung MS, [facility] Patient: Hank Liu This visit was conducted via [employer]. I have communicated my name and active licensure. The patient's identity and physical location were verified at the time of this visit. Either the patient or their legal sales training representative has been informed of the risks and benefits of -- and alternatives to -- treatment through a remote evaluation and consents to proceed with the evaluation remotely. HIGH LEVEL SUMMARY: The patient's family history is potentially suggestive of a hereditary cancer syndrome. The patient provided informed consent for Multi-Cancer panel through [employer]. Results are expected in 2-3 weeks from the time of sample collection. Patient plans to have blood drawn close to home. IDENTIFICATION AND CHIEF COMPLAINT: Dr. Lala Carbajal requested a consultation for genetic counseling and risk assessment for Hank Liu, a 53 year old female, for discussion of her family history of cancer. She presents to clinic today to discuss the possibility of a genetic predisposition to cancer, and to further clarify her risks, as well as her family members' risks for cancer. 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 This was treated with surgery- removal and stomach resection. PAST MEDICAL HISTORY Diagnosis Date Arthritis Carcinoid tumor of stomach Gall stones GERD (gastroesophageal reflux disease) Hemorrhoids Hyperlipidemia Stomach ulcer UTI (urinary tract infection) PAST SURGICAL HISTORY Procedure Laterality Date ANESTH, SECTION CHOLECYSTECTOMY COLONOSCOPY 03/22/2016 EGD HYSTERECTOMY HX told she still has cervix, was for bleeding LAP REMOVE/REV MESH BLADDER WALL PAST SURGICAL HISTORY OF 04/2019 breast reconstruction SLEEVE RESECTION STOMACH CANCER SURVEILLANCE HISTORY: Mammograms: last 06/2023 Breast MRI's: N/A Breast Biopsies: N/A Colonoscopy: last 12/2022 EGD: last 12/2022 GI Polyps: few polyps per pt report Dermatology: Yes/as needed REPRODUCTIVE HISTORY AND PERSONAL RISK ASSESSMENT FACTORS: Weight: Last 1 Encounter Wt Readings: Date: Wt: 12/09/2023 92.1 kg (203 lb 0.7 oz) Height: Last 1 Encounter Ht Readings: Date: Ht: 12/09/2023 157.5 cm (5' 2 ) Menarche was at age 10 Postmenopausal Uterus Intact: No Ovaries Intact: Yes First live at age 19 She has not used HRT in the past. SOCIAL HISTORY: Social History Tobacco Use Smoking status: Former Current packs/day: 0.00 Types: Cigarettes Quit date: 05/2022 Years since quittin.8 Passive exposure: Current Smokeless tobacco: Never Vaping Use Vaping status: Never Used Substance Use Topics Alcohol use: Not Currently Drug use: No FAMILY HISTORY: We obtained a detailed, 4-generation family history. Significant diagnoses are listed below: Brother with colon cancer in late 40s Brother with kidney cancer at 48 Mother with colon cancer in 50s FAMILY HISTORY Problem Relation Age of Onset Diabetes Mother Colon Cancer Mother 55 detected on autopsy Aneurysm Mother 55 aortic Heart disease Father Hyperlipidemia Father Stroke Father Cancer Brother 48 kidney Cancer Brother spinal cord The patient's maternal ancestors are of mixed descent and paternal ancestors are of [place]ian descent. There is no known Ashkenazi Congregation ancestry. There is no known consanguinity. A copy of the patient's pedigree will be available under the scanned documents tab following today's visit. GENETIC COUNSELING RISK ASSESSMENT, DISCUSSION, AND SUGGESTED FOLLOW UP: We reviewed the natural history and genetic etiology of sporadic, familial and hereditary cancer syndromes. The patient's family history is potentially suggestive of: a hereditary cancer syndrome We discussed that the best person to begin with genetic testing is a family member with a history of cancer. The patient's brother who was diagnosed with colon cancer in his late 40s would be the most appropriate relative for genetic testing. However, this relative is unavailable for testing. Therefore we discussed the limitations of interpreting tests results for an unaffected individual. The patient meets NCCN testing criteria since her brother had a Freire-syndrome related cancer diagnosed <50y. We discussed that identification of a hereditary cancer syndrome may help her care providers tailorher medical management. If a mutation is detected, the National Comprehensive Cancer Network and/[facility] opinion recommendations could include increased cancer surveillance and prophylactic surgeryoptions. If a mutation is detected, the patient will be referred back to the referring provider andto any additional appropriate care providers to discuss the relevant options. Inheritance of hereditary cancer syndromes was discussed with the patient. If a mutation is not found in the patient, this will decrease the likelihood of a hereditary cancersyndrome as the explanation for the patient's family history of cancer. However, it cannot completely rule out this possibility. Cancer surveillance options would be discussed for the patient according to the appropriate standard National Comprehensive Cancer Network and [place] [employer] guidelines, with consideration of their personal and family history risk factors. In this case, the patient will be referred back to their care providers for discussions of management. Based on this assessment of the patient's family and personal history, genetic testing is recommended. The patient was offered Multi-Cancer panel through [facility]. After considering the risks, benefits, and limitations, the patient chose to pursue and provided informed consent for the following testing: Multi-Cancer panel through [facility]. The Multi-Cancer Panel includes AIP, ALK, APC, CARY, AXIN2, BAP1, BARD1, BLM, BMPR1A, BRCA1, BRCA2, BRIP1, CDC73, CDH1, CDK4, CDKN1B, CDKN2A, CHEK2, CTNNA1, DICER1, EGFR, EPCAM, FH, FLCN, GREM1, HOXB13, KIT, LZTR1, MAX, MBD4, MEN1, MET, MITF, MLH1, MSH2, MSH3, MSH6, MUTYH, NF1, NF2, NTHL1, PALB2, PDGFRA, PMS2, POLD1, POLE, POT1, PADQI5X, PTCH1, PTEN, RAD51C, RAD51D, RB1, RET, SDHA, SDHAF2, SDHB, SDHC, SDHD, SMAD4, SMARCA4, SMARCB1, SMARCE1, STK11, SUFU, TULP977, TP53, TSC1, TSC2, and VHL The Multi-Cancer panel looks at genes associated with cancers of the breast, gynecologic tract (ovarian, uterine/endometrial), gastrointestinal system (colorectal, gastric, pancreatic), endocrine glands (thyroid, parathyroid, pituitary, adrenal glands), genitourinary tract (renal/urinary tract, prostate), skin (melanoma, basal cell carcinoma), and brain/nervous system. We discussed that an NGS panel can rarely result in an unexpected finding which may or may not be related to the presenting phenotype. We discussed that [employer] may call the patient regarding billing. The patient should watch for this communication and respond promptly. The patient should contact [employer] directly with any billing questions (ph. [phone] or [email or web address]). Per the patient's request, we will contact her by [employer] or telephone to review these results. A follow up genetic counseling visit will be scheduled if requested. The patient was seen for a total of 15 minutes, greater than 50% of which was spent [id number] counseling. This plan is being carried out under the oversight of Dr. Tobin Tabor. This note will also be sent to the referring provider via the electronic medical record. Elida Fung MS, [facility] CC: Dr. Lala Tabor documented in this encounterC[facility] NoteHNO ID: [id number] Author: ELIDA FUNG MS Service: ? Author Type: Genetic Counselor Type: Progress Notes Filed: 03/28/2024 12:27 Note Text: [facility] Department of Medical Genetics Consultation Note Genetic Counselor: Elida Fung MS, [facility] Patient: Hank Liu This visit was conducted via [employer]. I have communicated my name and active licensure. The patient's identity and physical location were verified at the time of this visit. Either the patient or their legal sales training representative has been informed of the risks and benefits of -- and alternatives to -- treatment through a remote evaluation and consents to proceed with the evaluation remotely. HIGH LEVEL SUMMARY: The patient's family history is potentially suggestive of a hereditary cancer syndrome. The patient provided informed consent for Multi-Cancer panel through [facility]. Results are expected in 2-3 weeks from the time of sample collection. Patient plans to have blood drawn close to home. IDENTIFICATION AND CHIEF COMPLAINT: Dr. Lala Carbajal requested a consultation for genetic counseling and risk assessment for Hank Liu, a 53 year old female, for discussion of her family history of cancer. She presents to clinic today to discuss the possibility of a genetic predisposition to cancer, and to further clarify her risks, as well as her family members' risks for cancer. 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 This was treated with surgery- removal and stomach resection. PAST MEDICAL HISTORY Diagnosis Date Arthritis Carcinoid tumor of stomach Gall stones GERD (gastroesophageal reflux disease) Hemorrhoids Hyperlipidemia Stomach ulcer UTI (urinary tract infection) PAST SURGICAL HISTORY Procedure Laterality Date ANESTH, SECTION CHOLECYSTECTOMY COLONOSCOPY 03/22/2016 EGD HYSTERECTOMY HX told she still has cervix, was for bleeding LAP REMOVE/REV MESH BLADDER WALL PAST SURGICAL HISTORY OF 04/2019 breast reconstruction SLEEVE RESECTION STOMACH CANCER SURVEILLANCE HISTORY: Mammograms: last 06/2023 Breast MRI's: N/A Breast Biopsies: N/A Colonoscopy: last 12/2022 EGD: last 12/2022 GI Polyps: few polyps per pt report Dermatology: Yes/as needed REPRODUCTIVE HISTORY AND PERSONAL RISK ASSESSMENT FACTORS: Weight: Last 1 Encounter Wt Readings: Date: Wt: 12/09/2023 92.1 kg (203 lb 0.7 oz) Height: Last 1 Encounter Ht Readings: Date: Ht: 12/09/2023 157.5 cm (5' 2 ) Menarche was at age 10 Postmenopausal Uterus Intact: No Ovaries Intact: Yes First live at age 19 She has not used HRT in the past. SOCIAL HISTORY: Social History Tobacco Use Smoking status: Former Current packs/day: 0.00 Types: Cigarettes Quit date: 05/2022 Years since quittin.8 Passive exposure: Current Smokeless tobacco: Never Vaping Use Vaping status: Never Used Substance Use Topics Alcohol use: Not Currently Drug use: No FAMILY HISTORY: We obtained a detailed, 4-generation family history. Significant diagnoses are listed below: Brother with colon cancer in late 40s Brother with kidney cancer at 48 Mother with colon cancer in 50s FAMILY HISTORY Problem Relation Age of Onset Diabetes Mother Colon Cancer Mother 55 detected on autopsy Aneurysm Mother 55 aortic Heart disease Father Hyperlipidemia Father Stroke Father Cancer Brother 48 kidney Cancer Brother spinal cord The patient's maternal ancestors are of mixed descent and paternal ancestors are of [place]ian descent. There is no known Ashkenazi Congregation ancestry. There is no known consanguinity. A copy of the patient's pedigree will be available under the scanned documents tab following today's visit. GENETIC COUNSELING RISK ASSESSMENT, DISCUSSION, AND SUGGESTED FOLLOW UP: We reviewed the natural history and genetic etiology of sporadic, familial and hereditary cancer syndromes. The patient's family history is potentially suggestive of: a hereditary cancer syndrome We discussed that the best person to begin with genetic testing is a family member with a history of cancer. The patient's brother who was diagnosed with colon cancer in his late 40s would be the most appropriate relative for genetic testing. However, this relative is unavailable for testing. Therefore we discussed the limitations of interpreting tests results for an unaffected individual. The patient meets NCCN testing criteria since her brother had a Freire-syndrome related cancer diagnosed <50y. We discussed that identification of a hereditary cancer syndrome may help her care providers tailor her medical management. If a mutation is detected, the National Comprehensive Cancer Network and/or expert opinion recommendations could include increased cancer surveillance and prophy (more content not included)...[facility]11-12-2024 NoteHNO ID: [id number] Author: SOL NUÑEZ APRN.PHLEBOTOMY SERVICES TECHNICIAN Service: ? Author Type: Nurse Practitioner Type: Progress Notes Filed: 03/20/2024 10:30 Note Text: The sensitive examination was discussed with the Patient or Patient's Authorized Railroad Car Letterer. As applicable, any other physician, advance practice provider, medical student, or other health professional student that will be observing or involved in the sensitive examination for educational or training purposes was discussed with the Patient or Authorized Railroad Car Letterer. The Patient or Authorized Railroad Car Letterer has agreed to proceed with the sensitive examination. (Sensitive examination includes inspection and/or palpation of the breasts, pelvis, prostate and anorectal regions)[facility]11-12-2024 History of Present illness Narrative* Sol Nuñez APRN.CNP - 03/20/2024 10:26 AM EST The sensitive examination was discussed with the Patient or Patient's Authorized Railroad Car Letterer. Asapplicable, any other physician, advance practice provider, medical student, or other health professional student that will be observing or involved in the sensitive examination for educational or training purposes was discussed with the Patient or Authorized Railroad Car Letterer. The Patient or Authorized Railroad Car Letterer has agreed to proceed with the sensitive examination. (Sensitive examination includes inspection and/or palpation of the breasts, pelvis, prostate and anorectal regions) documented in this encounterC[facility] Instructions* Patient Instructions* Sol Nuñez APRN.CNP - 03/20/2024 9:37 AM EST Images from the original note were not included. - Poor pelvic floor movement: 1. Stay hydrated by drinking at least 8 glasses of water per day. This will help to keep your bowelhabits more regular. 2.You may start a daily fiber supplement powder to bulk stool and regulate bowel habits. Fiber POWDER (metamucil or konsyl) - 1 tsp of powder mixed in 4-8 ounces of liquid every morning x 1 week; slowly increase by the teaspoon up to 1 to 2 tablespoons daily. Fiber supplement works best when taken on a consistent basis. 3. 1 capful of MiraLAX as a rescue for constipation. May take 2 times a day as needed. 4. Squatty potty/foot stool to aid with defecation: (available online, [employer], [employer], [employer]. ) 5. Pelvic floor physical therapy. The goal of this therapy is to retrain the pelvic floor muscles to more appropriately relax and therefore improve evacuation of stool. Physical therapy is the most effective way to get the pelvic floor muscles moving and coordinating correctly. Pelvic floor PT was o rdered today, reviewed scheduling process with patient and how to find local therapists. 6. There are no surgical options to improve pelvic muscle coordination. 7. Pelvic floor dysfunction handout reviewed and provided to patient. 8. Follow up with your referring physician as planned. A copy of your test results will be sent to this physician. May follow-up with this office if symptoms are not improving or any additional questions/concerns. documented in this encounterC[facility]24 NoteHNO ID: [id number] Author: SOL NUÑEZ APRN.CNP Service: ? Author Type: Nurse Practitioner Type: Progress Notes Filed: 03/20/2024 10:39 Note Text: PELVIC FLOOR COLON AND RECTAL SURGERY Reason for visit: Review anorectal manometry and EMG results History of Present Illness: Hank Liu is a 53 year old FEMALE who was seen at the request of Dr. Carbajal for anorectal manometry testing, rectal sensation testing and EMG recruitment. Mrs. Liu was referred for testing due to symptoms of abdominal bloating and alternating constipation and diarrhea. Duration of symptoms: GI issues her whole life. Abdominal bloating has been worse over the past 3 to 4 years. Do you have anorectal pain: No Stool frequency: 1/day, occasionally 2 bowel movements per day stool type: Ranges in consistency from watery to formed/solid Stool straining: mild straining with harder stools. Patient reports occasionally having to digitize into anus to evacuate stool Frequency of straining: sometimes Does anything make your symptoms better? Colace and magnesium citrate will help with constipation. Typically will take 1-2 times every other month. Patient denies feeling constipated although she reports abdominal bloating and pressure under her rib cage. She can go up to 2 to 3 days without a bowel movement. She reports sensation in her rectum when she feels the urge to have a bowel movement. She denies taking any medications or supplements on a daily basis to help with stool consistency. Reports drinking adequate amounts of water. Has trialed FODMAP diet with no significant improvement in symptoms. Prior hysterectomy: Yes, patient reports many years ago. Was done transabdominal. 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 Abdominal wall reconstruction following failed liposuction procedure. Cholecystectomy Reports having umbilical hernia however is not interested in repair at this time Urinary Symptoms: Urinary incontinence: none Urinary frequency: No History of bladder sling urinary incontinence which has improved Obstetric history: 4 Para 2 Vaginal delivery: 1 vaginal births and 1 c-sections. - Episiotomy: No - Tear: No - Forceps No Previous Testing Results include: Colonoscopy: Yes Date: December 2022. Diverticulosis and hemorrhoids. Advised to follow-up in 5 years however is scheduled next week with her GI provider due to ongoing abdominal pain and bloating. KUB: December noting moderate stool burden Manometry: today Defecography: No PAST MEDICAL HISTORY Diagnosis Date Arthritis Carcinoid tumor of stomach Gall stones GERD (gastroesophageal reflux disease) Hemorrhoids Hyperlipidemia Stomach ulcer UTI (urinary tract infection) PAST SURGICAL HISTORY Procedure Laterality Date ANESTH, SECTION CHOLECYSTECTOMY COLONOSCOPY 03/22/2016 EGD HYSTERECTOMY HX told she still has cervix, was for bleeding LAP REMOVE/REV MESH BLADDER WALL PAST SURGICAL HISTORY OF 04/2019 breast reconstruction SLEEVE RESECTION STOMACH Current Outpatient Medications Medication Sig Dispense Refill rosuvastatin (CRESTOR) 40 mg tablet Take 40 mg by mouth daily at bedtime. traZODone (DESYREL) 100 mg tablet Take 100 mg by mouth daily at bedtime. rOPINIRole (REQUIP) 0.25 mg tablet Take 0.5 mg by mouth once daily as needed. No current facility-administered medications for this visit. ALLERGIES Allergen Reactions Iodine Hives, Anaphylaxis, Shortness of Breath Other reaction(s): anaphylaxis Other reaction(s): Unknown Atorvastatin Other: See Comments Other Reaction(s): arthralgia/myalgia Bupropion Other: See Comments Other Reaction(s): Other: See Comments Iodinated Contrast * Hives, Other: See Comments, Shortness of Breath Other reaction(s): Difficulty Breathing Other Reaction(s): Difficulty Breathing, Other: See Comments Other reaction(s): Difficulty Breathing Mirtazapine Hives, Other: See Comments Nalbuphine Shortness of Breath, Other: See Comments, Myalgia Other Reaction(s): muscle spams, and breathing, Unknown Nubain [Nalbuphine * Unknown FAMILY HISTORY Problem Relation Age of Onset Diabetes Mother Colon Cancer Mother 55 detected on autopsy Aneurysm Mother 55 aortic Heart disease Father Hyperlipidemia Father Stroke Father Cancer Brother 48 kidney Cancer Brother spinal cord Social History Tobacco Use Smoking status: Former Current packs/day: 0.00 Types: Cigarettes Quit date: 05/2022 Years since quittin.8 Passive exposure: Current Smokeless tobacco: Never Vaping Use Vaping status: Never Used Substance Use Topics Alcohol use: Not Currently Drug use: No Physical Exam: There were no vitals filed for this visit. General Appearance: Well appearing,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 GERD (gastroesophageal reflux disease) Glossopharyngeal neuralgia H/O: hysterectomy History of benign carcinoid tumor of gastrointestinal tract History of medical problems ulcer History of plastic surgery multiple plastic surgeries History of psychiatric care History of smoking quit 3 years Kidney stone 10/11/2022 Kidney stone on right side Lupus Multiple sclerosis (CMS/HCC) Ovarian cyst Plantar fasciitis, bilateral PUD (peptic ulcer disease) Seizure (CMS/HCC) Skin cancer Skin lesion of cheek Stomach tumor (benign) Tonsillitis OBJECTIVE: Visit Vitals BP 108/70 Pulse 91 SpO2 95% Smoking Status Former BP Readings from Last 3 Encounters: 03/08/24 108/70 03/05/24 110/78 12/07/23 110/78 Physical Exam Constitutional: Appearance: She is obese. Cardiovascular: Rate and Rhythm: Normal rate and regular rhythm. Heart sounds: Normal heart sounds. Pulmonary: Effort: Pulmonary effort is normal. Breath sounds: Normal breath sounds. Abdominal: General: Bowel sounds are normal. Palpations: Abdomen is soft. Musculoskeletal: Cervical back: Pain with movement present. Decreased range of motion. Neurological: Mental Status: She is alert. Cranial Nerves: Cranial nerves 2-12 are intact. Sensory: Sensation is intact. Motor: Motor function is intact. Coordination: Coordination is intact. Gait: Gait is intact. Deep Tendon Reflexes: Reflex Scores: Tricep reflexes are 2+ on the right side and 2+ on the left side. Bicep reflexes are 3+ on the right side and 3+ on the left side. Brachioradialis reflexes are 2+ on the right side and 2+ on the left side. Patellar reflexes are 2+ on the right side and 2+ on the left side. ASSESSMENT AND PLAN: Diagnosis Plan 1. Cervical radiculopathy predniSONE (Deltasone) 20 MG tablet XR cervical spine 2 or 3 views MR cervical spine wo contrast 2. History of GI tract cancer 3. Polyarthralgia Ambulatory referral to Rheumatology Assessment & Plan 1. Cervical radiculopathy. The patient's symptoms and history suggest cervical radiculopathy, with pain in the neck and right hand, numbness, and tingling in the fingers. She has limited motion in her neck and experiences significant pain, especially in the morning. I can provoke her pain with flexion of the head. A course of prednisone will be initiated. She is advised to take Tylenol up to 4000 mg per day, in combination with ibuprofen. Limit ibuprofen use secondary to possible neck pain. A neck x- ray and MRI will be ordered. Physical therapy will be deferred until the MRI results are available. Topical Voltaren gel is recommended for shoulder pain. Stop cervical chiropractor. She prefers no physical therapy at this point. 2. History of cancer. Given the patient's history of cancer and tumors, a neck MRI will be ordered to rule out any potential malignancies. If the MRI shows any abnormalities, further evaluation and treatment will be considered. She follows with Dr. Amaral for this. 3. Suspected autoimmune disorder. The patient has a history of borderline ARMANI and concerns about lupus or other autoimmune conditions. She is requesting retesting. A [facility] will be made for a secondopinion and further evaluation. documented in this encounterSamaritan [id number] Telephone encounter Note* Telephone Encounter - Andra Zamudio MA - 02/15/2024 4:09 PM EDT Called pt to reschedule as I won't be in on 02/22. Pt did not pickle maker, left vm asking to call office back. Andra Zamudio MA [facility]10-09-2024 Miscellaneous Notes* Telephone Encounter - Andra Zamudio MA - 02/15/2024 4:09 PM EDT Called pt to reschedule as I won't be in on 02/22. Pt did not pickle maker, left vm asking to call office back. Andra Zamudio MA documented in this encounterC[facility]09-[facility] Hospital Discharge instructions Patient Education 01/25/2024 10:34:45 Ureteral Stent Implantation Ureteral Stent Implantation Ureteral stent implantation is a procedure to insert (implant) a flexible, soft, plastic tube (stent) into a ureter. Ureters are the tubelike parts of the body that drain urine from the kidneys. A ureteral stent may be implanted: After a procedure to remove a blockage from the ureter (ureterolysis or pyeloplasty). To open the flow of urine when a blockage is caused by a kidney stone, tumor, blood clot, or infection. You have two ureters, one on each side of your body. The ureters connect your kidneys to your bladder. The stent is placed so that one end is in your kidney, and one end is in your bladder. The stentsupports the ureter while it heals and helps to drain urine. The stent is usually taken out after your ureter has healed. Depending on your condition, you may have a stent for just a few weeks, or you may have a long-term stent that will need to be replaced every few months. Tell a health care provider about: Any allergies you have. All medicines you are taking, including vitamins, herbs, eye drops, creams, and xhgw-hbp-ajyseuq medicines. Any problems you or family members have had with anesthetic medicines. Any bleeding problems you have. Any surgeries you have had. Any medical conditions you have. Whether you are or may be . What are the risks? Generally, this is a safe procedure. However, problems may occur, including: Infection. Bleeding. Allergic reactions to medicines. Damage to nearby structures or organs, such as tearing (perforation) of the ureter. Movement of the stent away from where it is placed during surgery (migration). Buildup of a crust or hard coating (encrustation) on the stent. This happens when bacteria in the body form crystals on the stent, causing it to weaken. What happens before the procedure? Medicines Ask your health care provider about: Changing or stopping your regular medicines. These include any diabetes medicines or blood thinnersyou take. Taking medicines such as aspirin and ibuprofen. These medicines can thin your blood. Do not take them unless your health care provider tells you to. Taking srtj-gwi-cyucehf medicines, vitamins, herbs, and supplements. When to stop eating and drinking Follow instructions from your health care provider about what you may eat and drink. These may include: 8 hours before your procedure ?Stop eating most foods. Do not eat meat, fried foods, or fatty foods. ?Eat only light foods, such as toast or crackers. ?All liquids are okay except energy drinks and alcohol. 6 hours before your procedure ?Stop eating. ? Drink only clear liquids, such as water, clear fruit juice, black coffee, plain tea, and sports drinks. ?Do not drink energy drinks or alcohol. 2 hours before your procedure ?Stop drinking all liquids. ?You may be allowed to take medicines with small sips of water. If you do not follow your health care provider's instructions, your procedure may be delayed or canceled. General instructions Do not use any products that contain nicotine or tobacco for at least 4 weeks before the procedure.These products include cigarettes, chewing tobacco, and vaping devices, such as e-cigarettes. If you need help quitting, ask your health care provider. You may have an exam or testing, such as imaging or blood tests. If you will be going home right after the procedure, plan to have a responsible adult: ?Take you home from the hospital or clinic. You will not be allowed to drive. ?Care for you for the time you are told. Ask your health care provider what steps will be taken to help prevent infection. These steps may include: ?Removing hair at the surgery site. ?Washing skin with a soap that kills germs. ?Taking antibiotic medicine. What happens during the procedure? An IV will be inserted into one of your veins. You may be given: ?A medicine to help you relax (sedative). ?A medicine to make you fall asleep (general anesthetic). A thin, tube-shaped instrument with a light and tiny camera at the end (cystoscope) will be inserted into your urethra. The urethra is the part of your body that drains urine from the bladder. The urethra opens at the end of the penis or in front of the vaginal opening. The cystoscope will be passed into your bladder. Guided imagery using X-ray may be used to pass a thin wire (guide wire) through your bladder and into your ureter. This wire is used to guide the stent into your ureter. The stent will be inserted into your ureter. The guide wire and the cystoscope will be removed. A thin, flexible tube (catheter) may be put through your urethra so that one end is in your bladder. This helps to drain urine from your bladder. The procedure may vary among hospitals and health care providers. What happens after the procedure? Your blood pressure, heart rate, breathing rate, and blood oxygen level will be monitored until youleave the hospital or clinic. You may continue to get medicine and fluids through an IV. You may have some soreness or pain in your abdomen and urethra. You may be given medicines for this. You will be encouraged to get up and walk around as soon as you can. You may have a catheter draining your urine. Summary Ureteral stent implantation is a procedure to insert a flexible, soft, plastic tube (stent) into a ureter. You may have a stent implanted to support the ureter while it heals after a procedure or to open the flow of urine if there is a blockage. You may have a stent for just a few weeks, or you may have a long-term stent that will need to be replaced every few months. Follow instructions from your health care provider about taking medicines and about eating and drinking before the procedure. This information is not intended to replace advice given to you by your health care provider. Make sure you discuss any questions you have with your health care provider. Document Revised: 05/31/2022 Document Reviewed: 05/31/2022 [employer] Patient Education 2023 [employer]. 01/25/2024 10:34:37 Laser Therapy for Kidney Stones, Care After Laser Therapy for Kidney Stones, Care After After laser therapy for kidney stones, it is common to have: Pain. A burning feeling when you pee (urinate). Small amounts of blood in your pee (urine). A need to pee a lot. Parts of the kidney stone in your pee. Mild discomfort in your back when you pee. You may have this if you had a small mesh tube (stent) placed during the procedure. Follow these instructions at home: Medicines Take wquu-frt-nzziflg and prescription medicines only as told by your health care provider. If you were prescribed antibiotics, take them as told by your provider. Do not stop using the antibiotic even if you start to feel better. Ask your provider if the medicine prescribed to you: ?Requires you to avoid driving or using machinery. ?Can cause constipation. You may need to take these actions to prevent or treat constipation: ?Drink enough fluid to keep your pee pale yellow. ?Take cpov-cjt-hyicajr or prescription medicines. ?Eat foods that are high in fiber, such as beans, whole grains, and fresh fruits and vegetables. ?Limit foods that are high in fat and processed sugars, such as fried or sweet foods. Activity If you were given a sedative during the procedure, it can affect you for several hours. Do not drive or operate machinery until your provider says that it is safe. Return to your normal activities as told by your provider. Ask your provider what activities are safe for you. General instructions Your provider may recommend that you drink a lot of water for a few hours after your procedure. If you have heart or kidney disease, ask your provider how much you should drink. You may be asked to strain your pee to collect any stone pieces that you pass. Your provider may have these pieces tested. Do not take baths, swim, or use a hot tub until your provider approves. Ask your provider if you may take warm baths to soothe the burning. Keep all follow-up visits. If you have a stent, you will need to go back to your provider to have it removed. Your provider may give you more instructions. Make sure you know what you can and cannot do. Contact a health care provider if: You have pain or a burning feeling that lasts for more than 2 days. You feel nauseous. You vomit more and more often. You have trouble peeing. You have pain that gets worse or does not get better with medicine. You have a fever or shaking chills. Get help right away if: You cannot pee, even when your bladder feels full. You faint. You have chest pain, shortness of breath, or cough up blood. You have: ?Bright red blood or blood clots in your pee. ?Severe pain or discomfort. ?Pain in your abdomen. ?Swelling in your legs. These symptoms may be an emergency. Get help right away. Call 911. Do not wait to see if the symptoms will go away. Do not drive yourself to the hospital. This information is not intended to replace advice given to you by your health care provider. Make sure you discuss any questions you have with your health care provider. Document Revised: 12/24/2022 Document Reviewed: 12/24/2022 [employer] Patient Education 2023 [employer]. 01/25/2024 10:29:55 Laser Therapy for Kidney Stones Laser Therapy for Kidney Stones Laser therapy for kidney stones is a procedure to break up rock-like masses that form inside the kidneys (kidney stones). It is done using a device that beams a strong light (laser) on the kidney stones. This breaks the stones up into small pieces. These small pieces may leave your body when you pee (urinate) or may be taken out during the procedure. You may need laser therapy if you have kidney stones that are painful or that are stopping you frombeing able to pee. Tell a health care provider about: Any allergies you have. All medicines you are taking, including vitamins, herbs, eye drops, creams, and ymgf-yyy-zywpyzu medicines. Any problems you or family members have had with anesthesia. Any bleeding problems you have. Any surgeries you have had. Any medical conditions you have. Whether you are or may be . What are the risks? Your health care provider will talk with you about risks. These may include: Infection. Bleeding. Allergic reactions to medicines. Damage to: ?The part of your body that drains pee (urine) from the bladder (urethra). ?The bladder. ?The tube that connects the bladder to the kidneys (ureter). Urinary tract infection (UTI). Urethral stricture. This is when the urethra is narrowed by scarring. Trouble peeing. Blockage of the kidney. This may be caused by a piece of kidney stone. What happens before the procedure? When to stop eating and drinking Follow instructions from your provider about what you may eat and drink. These may include: 8 hours before the procedure ?Stop eating most foods. Do not eat meat, fried foods, or fatty foods. ?Eat only light foods, such as toast or crackers. ?All liquids are okay except energy drinks and alcohol. 6 hours before the procedure ?Stop eating. ?Drink only clear liquids, such as water, clear fruit juice, black coffee, plain tea, and sports drinks. ?Do not drink energy drinks or alcohol. 2 hours before the procedure ?Stop drinking all liquids. ?You may be allowed to take medicines with small sips of water. If you do not follow your provider's instructions, your procedure may be delayed or canceled. Medicines Ask your provider about: ?Changing or stopping your regular medicines. These include any diabetes medicines or blood thinners you take. ?Taking medicines such as aspirin and ibuprofen. These medicines can thin your blood. Do not take them unless your provider tells you to. ?Taking tboq-gfd-hszpqlt medicines, vitamins, herbs, and supplements. Tests You may have a physical exam before the procedure. You may also have tests done. These may include: ?Imaging tests. ?Blood or pee tests. Surgery safety Ask your provider: ?How your surgery site will be marked. ?What steps will be taken to help prevent infection. These steps may include: ?Removing hair at the surgery site. ?Washing skin with a soap that kills germs. ?Taking antibiotics. General instructions Do not use any products that contain nicotine or tobacco for at least 4 weeks before the procedure.These products include cigarettes, chewing tobacco, and vaping devices, such as e-cigarettes. If you need help quitting, ask your provider. If you will be going home right after the procedure, plan to have a responsible adult: ?Take you home from the hospital or clinic. You will not be allowed to drive. ?Care for you for the time you are told. What happens during the procedure? An IV will be inserted into one of your veins. You will be given: ?A sedative. This helps you relax. ?Anesthesia. This keeps you from feeling pain. It will make you fall asleep for surgery. A tool with a camera on the end (ureteroscope) will be put into your urethra. It will be moved through your bladder to your kidney. It will send pictures to a screen in the operating room. This will show what parts of your kidney need to be treated. A tube will be put through the ureteroscope. It will be moved into your kidney. The laser device will be put into your kidney through the tube. The laser will be used to break up the kidney stones. A tool with a tiny wire basket may be put through the tube into your kidney. This can help remove the small pieces of the kidney stone. A small mesh tube (stent) may be placed to allow your kidney to drain. The tube and ureteroscope will be taken out at the end of the surgery. The procedure may vary among providers and hospitals. What happens after the procedure? Your blood pressure, heart rate, breathing rate, and blood oxygen level will be monitored until youleave the hospital or clinic. If you had a stent placed, it may have a string that will be secured to your skin. This helps your provider remove the stent. You may be given a strainer to collect any stone pieces that you pass in your pee. Your provider may have these tested. This information is not intended to replace advice given to you by your health care provider. Make sure you discuss any questions you have with your health care provider. Document Revised: 12/24/2022 Document Reviewed: 12/24/2022 [employer] Patient Education 2023 [employer] Follow Up Care 01/24/2024 13:16:31 With:KELLI HENSLEY, Seamus Lee, URL Address: [facility] [address], [place] [address]- [phone] When: Unknown Comments:ronna Lee ESWL/stent placement and possible URS [facility] 09-18-2024 NotePatient Education Nephrology Laser Therapy for Kidney Stones, Care After After laser therapy for kidney stones, it is common to have: ? Pain. ? A burning feeling when you pee (urinate). ? Small amounts of blood in your pee (urine). ? A need to pee a lot. ? Parts of the kidney stone in your pee. ? Mild discomfort in your back when you pee. You may have this if you had a small mesh tube (stent)placed during the procedure. Follow these instructions at home: Medicines ? Take gwjo-sci-qxfepqh and prescription medicines only as told by your health care provider. ? If you were prescribed antibiotics, take them as told by your provider. Do not stop using the antibiotic even if you start to feel better. ? Ask your provider if the medicine prescribed to you: ? Requires you to avoid driving or using machinery. ? Can cause constipation. You may need to take these actions to prevent or treat constipation: ? Drink enough fluid to keep your pee pale yellow. ? Take xsjk-aeg-nfoowpu or prescription medicines. ? Eat foods that are high in fiber, such as beans, whole grains, and fresh fruits and vegetables. ? Limit foods that are high in fat and processed sugars, such as fried or sweet foods. Activity ? If you were given a sedative during the procedure, it can affect you for several hours. Do not drive or operate machinery until your provider says that it is safe. ? Return to your normal activities as told by your provider. Ask your provider what activities are safe for you. General instructions ? Your provider may recommend that you drink a lot of water for a few hours after your procedure. If you have heart or kidney disease, ask your provider how much you should drink. ? You may be asked to strain your pee to collect any stone pieces that you pass. Your provider may have these pieces tested. ? Do not take baths, swim, or use a hot tub until your provider approves. Ask your provider if you may take warm baths to soothe the burning. ? Keep all follow-up visits. If you have a stent, you will need to go back to your provider to haveit removed. Your provider may give you more instructions. Make sure you know what you can and cannot do. Contact a health care provider if: ? You have pain or a burning feeling that lasts for more than 2 days. ? You feel nauseous. ? You vomit more and more often. ? You have trouble peeing. ? You have pain that gets worse or does not get better with medicine. ? You have a fever or shaking chills. Get help right away if: ? You cannot pee, even when your bladder feels full. ? You faint. ? You have chest pain, shortness of breath, or cough up blood. ? You have: ? Bright red blood or blood clots in your pee. ? Severe pain or discomfort. ? Pain in your abdomen. ? Swelling in your legs. These symptoms may be an emergency. Get help right away. Call 911. ? Do not wait to see if the symptoms will go away. ? Do not drive yourself to the hospital. This information is not intended to replace advice given to you by your health care provider. Make sure you discuss any questions you have with your health care provider. Document Revised: 12/24/2022 Document Reviewed: 12/24/2022 [employer] Patient Education ? 2023 [employer] Laser Therapy for Kidney Stones Laser therapy for kidney stones is a procedure to break up rock-like masses that form inside the kidneys (kidney stones). It is done using a device that beams a strong light (laser) on the kidney stones. This breaks the stones up into small pieces. These small pieces may leave your body when you pee (urinate) or may be taken out during the procedure. You may need laser therapy if you have kidney stones that are painful or that are stopping you frombeing able to pee. Tell a health care provider about: ? Any allergies you have. ? All medicines you are taking, including vitamins, herbs, eye drops, creams, and dtui-vpo-iekyzic medicines. ? Any problems you or family members have had with anesthesia. ? Any bleeding problems you have. ? Any surgeries you have had. ? Any medical conditions you have. ? Whether you are or may be . What are the risks? Your health care provider will talk with you about risks. These may include: ? Infection. ? Bleeding. ? Allergic reactions to medicines. ? Damage to: ? The part of your body that drains pee (urine) from the bladder (urethra). ? The bladder. ? The tube that connects the bladder to the kidneys (ureter). ? Urinary tract infection (UTI). ? Urethral stricture. This is when the urethra is narrowed by scarring. ? Trouble peeing. ? Blockage of the kidney. This may be caused by a piece of kidney stone. What happens before the procedure? When to stop eating and drinking Follow instructions from your provider about what you may eat and drink. These may include: ? 8 hours before the procedure ? Stop eating most foods. Do not e (more content not included)...[facility]08-20-2024 NoteHNO ID: [id number] Author: LUIS FERNANDO TIRADO MD Service: ? Author Type: Physician Type: Progress Notes Filed: 12/27/2023 16:06 Note Text: [facility] of Present illness Narrative* Luis Fernando Tirado MD - 12/27/2023 4:04 PM EDT Rev'd [facility] NoteHNO ID: [id number] Author: RENE MIR CT Service: ? Author Type: Clinical Manager Floor Type: Progress Notes Filed: 12/27/2023 08:30 Note Text: LACTULOSE HYDROGEN BREATH TEST FOR SMALL BOWEL BACTERIAL OVERGROWTH Date: December 27, 2023 Referring Physician: Naty Booker Jr., DO Chief Complaint Abdominal Pain Bloating Constipation Acid Reflux/Heartburn Flatulence/Gas Diarrhea Symptoms prior to start of study: Abdominal pain [] 4 week restrictions [] 72 hour restrictions [] 12 hour fasting [] Followed the special diet Baseline Hydrogen PPM: 2 Methane PPM: 0 SARAH Thompson Lactulose 15mL given at: 955AM Start Time:1000am 20 minutes Hydrogen PPM: 3 Methane PPM: 0 Nikkiya Adeola, CT 40 minutes Hydrogen PPM: 2 Methane PPM: 0 Pedrochristie Adeola, CT 1 hour Hydrogen PPM: 4 Methane PPM: 0 Rene Mir, CT 1 hour 20 minutes Hydrogen PPM: 4 Methane PPM: 0 Pedrochristie Adeola, CT 1 hour, 40 minutes Hydrogen PPM: 4 Methane PPM: 1 Pedrochristie Adeola, CT 2 hours Hydrogen PPM: 8 Methane PPM: 0 Rene Adeola, CT 2 hours, 20 minutes Hydrogen PPM: 6 Methane PPM: 0 Rene Mir, CT 2 hours, 40 minutes Hydrogen PPM: 8 Methane PPM: 0 Pedrochristie Adeola, CT 3 hours Hydrogen PPM: 7 Methane PPM: 2 Rene Mir, CT Symptoms developed during the study period: Diarrhea Patient Results Preliminary Test Results (not given to patient): pending Rene Mir [facility]08-20-2024 History of Present illness Narrative* AdeolaPedrochristie CT - 12/27/2023 8:24 AM EDT LACTULOSE HYDROGEN BREATH TEST FOR SMALL BOWEL BACTERIAL OVERGROWTH Date: December 27, 2023 Referring Physician: Naty Booker Jr., DO Chief Complaint Abdominal Pain Bloating Constipation Acid Reflux/Heartburn Flatulence/Gas Diarrhea Symptoms prior to start of study: Abdominal pain [] 4 week restrictions [] 72 hour restrictions [] 12 hour fasting [] Followed the special diet Baseline Hydrogen PPM: 2 Methane PPM: 0 Rene Mir, CT Lactulose 15mL given at: 955AM Start Time:1000am 20 minutes Hydrogen PPM: 3 Methane PPM: 0 Rene Mir, CT 40 minutes Hydrogen PPM: 2 Methane PPM: 0 Rene Mir, CT 1 hour Hydrogen PPM: 4 Methane PPM: 0 Rene Mir, CT 1 hour 20 minutes Hydrogen PPM: 4 Methane PPM: 0 Rene Mir, CT 1 hour, 40 minutes Hydrogen PPM: 4 Methane PPM: 1 Rene Mir, CT 2 hours Hydrogen PPM: 8 Methane PPM: 0 Rene Mir, CT 2 hours, 20 minutes Hydrogen PPM: 6 Methane PPM: 0 Rene Mir, CT 2 hours, 40 minutes Hydrogen PPM: 8 Methane PPM: 0 Rene Mir, CT 3 hours Hydrogen PPM: 7 Methane PPM: [address] Symptoms developed during the study period: Diarrhea Patient Results Preliminary Test Results (not given to patient): pending SARAH Thompson [facility] History of Present illness Narrative* Andra Willson RT(R) - 12/22/2023 8:00 AM EDT Radiology Service Progress Note PATIENT NAME: Hank Liu DATE OF SERVICE: December 22, 2023 TIME: 8:33 AM PATIENT IDENTITY VERIFICATION COMPLETED USING TWO (2) IDENTIFIERS: Name and Date of confirmedby patient verbally. FALL SCREENING: Has the patient had 2 falls in the last year or 1 fall with injury or currently using an Ambulatory Assistive Device (Walker, Cane, Wheelchair, Crutches, etc.)? No PATIENT GENDER DATA: Female. status: : No status: NO. PATIENT RELEVANT IMPLANT DATA REVIEWED: Not Applicable PATIENT PRESENTS WITH AN IMPLANTABLE OR ATTACHED GILL BOX FIXER: No RADIOLOGY DEPARTMENT: General X-ray: Exam(s) Completed: Chest X-Ray PERIPHERAL IV DATA: Not applicable SIGNED BY: RT Enriqueta(R) December 22, 2023 8:33 AM documented in this encounterC[facility] NoteHNO ID: [id number] Author: ANDRA WILLSON RT(Bernardo) Service: ? Author Type: Technologist Type: Progress Notes Filed: 12/22/2023 08:33 Note Text: Radiology Service Progress Note PATIENT NAME: Hank Liu DATE OF SERVICE: December 22, 2023 TIME: 8:33 AM PATIENT IDENTITY VERIFICATION COMPLETED USING TWO (2) IDENTIFIERS: Name and Date of confirmed by patient verbally. FALL SCREENING: Has the patient had 2 falls in the last year or 1 fall with injury or currently using an Ambulatory Assistive Device (Walker, Cane, Wheelchair, Crutches, etc.)? No PATIENT GENDER DATA: Female. status: : No status: NO. PATIENT RELEVANT IMPLANT DATA REVIEWED: Not Applicable PATIENT PRESENTS WITH AN IMPLANTABLE OR ATTACHED GILL BOX FIXER: No RADIOLOGY DEPARTMENT: General X-ray: Exam(s) Completed: Chest X-Ray PERIPHERAL IV DATA: Not applicable SIGNED BY: Andra Willson, RT(R) December 22, 2023 8:33 [facility]08-02-2024 Instructions* Patient Instructions* Lala Carbajal MD, PhD - 12/09/2023 9:22 AM EDT Take miralax daily for next 5 days Then if not having bowel movement take miralax every other day If go two days without a substantial bm then take dose as well [facility] History of Present illness Narrative* Lala Carbajal MD, PhD - 12/09/2023 8:40 AM EDT CLINICAL HISTORY: This is a 53 year old female who presents today in consultation for an evaluationof abdominal pain at the request of Trey Brown DO Pt states 1 BM daily, regular to diarrhea without bleeding. 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 but wants a 2nd set of eyes She has pain all the time Has nausea off an on On her left side She says she was told the was due to constipation Finally went this am after a lot of laxative Usually she has diarrhea Started being constipated a few days ago That is rare Said she did not know she could be constipated Wondered if it was She went 3 days without a bm Usually she goes every day Some days are diarrhea days some are not Often is sticky and pasty Had white stool a few times The diarrhea is regular, usually once a day Sometimes strains Gets stomach spasms 2011 told she had 2 tumors in duodenum and stomach cancer Weight is up Has gained 40# Thinks its due to pain and can't exercise If her sides or stomach hurts she is nauseated She can't walk she feels she has swollen Calorie intake is 1200 Does the brat diet Her abdominen is distended Got a steroid and felt better and her abdomen was flat Told it was infection for the inflammation and given abx Treated for diverticulitis by Dr Booker Went to er with abdominal pain Went to [facility] er yesterday, has been 4 times in past 6 months Got dilaudid-that made her more constipated No blood in stool Nausea: on an off, not sure why Used to take creon, was stopped for ? Reason Did not feel any different except when eating red meat Says when eats red meat has constpiation but on creon that does not happen Diet: Eats sour dough bread with egg avacado Lunch chicken potato salad peppers apples grape Dinner what every stuffed peppers Foods bother her: Red meat, spicy foods etc VITALS: Blood pressure 131/89, pulse 74, height 157.5 cm (5' 2 ), weight 92.1 kg (203 lb 0.7 oz), SpO2 98%. ALLERGIES: Iodine, Atorvastatin, Bupropion, Iodinated Contrast Media, Mirtazapine, Nalbuphine, and Nubain [Nalbuphine Hcl] MEDICATIONS: Current Outpatient Medications Medication Sig Dispense Refill rosuvastatin (CRESTOR) 40 mg tablet Take 40 mg by mouth daily at bedtime. traZODone (DESYREL) 100 mg tablet Take 100 mg by mouth daily at bedtime. rOPINIRole (REQUIP) 0.25 mg tablet Take 0.5 mg by mouth once daily as needed. L.acid/B.bifidum/B.animal/FOS (PROBIOTIC COMPLEX ORAL) Take by mouth. No current facility-administered medications for this visit. 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 No date: Gall stones No date: GERD (gastroesophageal reflux disease) No date: Hemorrhoids No date: Hyperlipidemia No date: Stomach ulcer No date: UTI (urinary tract infection) PAST SURGICAL HISTORY: PAST SURGICAL HISTORY No date: ANESTH, SECTION No date: CHOLECYSTECTOMY 03/22/2016: COLONOSCOPY No date: EGD No date: HYSTERECTOMY HX Comment: told she still has cervix, was for bleeding No date: LAP REMOVE/REV MESH BLADDER WALL 04/2019: PAST SURGICAL HISTORY OF Comment: breast reconstruction No date: SLEEVE RESECTION STOMACH FAMILY HISTORY: mom with colon cancer and brother, 53, 54, brother with kidney cancer SOCIAL HISTORY: Social History Tobacco Use Smoking status: Former Types: Cigarettes Quit date: 05/2022 Years since quittin.5 Passive exposure: Current Smokeless tobacco: Never Vaping Use Vaping Use: Never used Substance Use Topics Alcohol use: Not Currently Drug use: No Work up to date: Abd CT Reviewed with patient during visit today. REVIEW OF SYSTEMS: GENERAL:+ weight gain, malaise or fevers., SEE HPI HEENT: Negative for frequent or significant headaches, NECK: Negative for lumps, goiter, pain and significant neck swelling RESPIRATORY: Negative for cough, wheezing or shortness of breath. CARDIOVASCULAR: Negative for chest pain, leg swelling or palpitations. GI: See HPI : No history of dysuria, frequency or incontinence CLEAT BLANKER: Had hysterectomy MUSCULOSKELETAL: Negative for joint pain or swelling, back pain or muscle pain. SKIN: Negative for lesions, rash, and itching. PSYCH: Negative for sleep disturbance--sleep apnea has maching , mood disorder and recent psychosocial stressors. HEMATOLOGY/LYMPHOLOGY Negative for prolonged bleeding, bruising easily or swollen nodes. ENDOCRINE: Negative for cold or heat intolerance, polyuria, polydipsia and goiter. All other reviewed and negative other than HPI. PHYSICAL EXAMINATION: GENERAL APPEARANCE: Well developed and well nourished. SKIN: Skin color, texture, turgor normal. No rashes or lesions. EYES: Conjunctiva normal without icterus. OROPHARYNX: lips, mucosa, and tongue normal, teeth and gums normal NECK: Supple, full range of motion, no lymphadenopathy, normal thyroid, LUNGS: Normal breath sounds, Clear to auscultation, No wheezes, No crackles. HEART:Normal PMI, Regular rate and rhythm, Normal heart sounds, S1 and S2 and No murmurs. NEURO: Alert and oriented in no acute distress. ABDOMEN: Normal bowel sounds, abdomen left protuberant hyperesthesia to touch right side without depression abdominal wall tender suprapubic mild epigastric , Soft, non-tender, no hepatomegaly. no palpable masses, no abdominal bruits, no rebound and no rigidity. EXTREMITIES:Extremities normal, No deformities, No skin discoloration, No edema . RECENT LABS: CBC: WBC (k/uL) Date Value 11/11/2023 5.34 08/15/2023 4.79 Hemoglobin (g/dL) Date Value 11/11/2023 12.8 MCV (fL) Date Value 11/11/2023 85.8 Platelet Count (k/uL) Date Value 11/11/2023 231 Lymphocytes % (%) Date Value 11/11/2023 36.5 Hepatic Function Panel: Albumin (g/dL) Date Value 11/11/2023 4.6 Bilirubin, Total (mg/dL) Date Value 11/11/2023 0.2 Alkaline Phosphatase (U/L) Date Value 11/11/2023 68 AST (U/L) Date Value 11/11/2023 26 ALT (U/L) Date Value 11/11/2023 17 Protein, Total (g/dL) Date Value 11/11/2023 7.5 Per onc note: copied with addendum PI: CASE HISTORY: Reverse Chronological Order 08/10/2023 - PET/CT: No Dotatate avid neoplastic process. 07/20/2023 - CT Chest: Patchy opacities and reticulonodular opacities in right lower lobe, most likely infectious/inflammatory in etiology, decreased since 05/05/23. Consider follow- up to complete resolution. No evidence of new intrathoracic abnormalities since 05/05/23. 06/30/2023 - US Thyroid: 5 mm thyroid nodule 06/10/2023 - Screening Mammogram: BIRADS 1 - Negative 04/19/2023 - CT A/P: Stable CT examination of the abdomen and pelvis. No substantial intra-abdominal or pelvic lymphadenopathy is appreciated. Incidental note is again made of right-sided nonobstructive nephrolithiasis. Newly apparent right lower lobe airspace opacities, likely infectious/inflammatory in nature, correlation with follow-up examinations is recommended to assess for clearing. 07/06/2021 - CT A/P: No acute abdominal or pelvic abnormality. Mild biliary dilatation, likely physiologic and related to cholecystectomy. Right nephrolithiasis. 06/12/2019 - CT CAP: Chest: Stable CT of the chest. Unchanged appearance of right lower lobe nodular opacities measuringup to 5 mm. No new or enlarging nodules are seen. No evidence of bulky intrathoracic adenopathy. A/P: Overall stable CT of the abdomen and pelvis. No gross gastric mass is visualized. No evidence of bulky retroperitoneal or mesenteric adenopathy. Nonobstructing 1-2 mm calculi in the right kidney. Mild urothelial thickening involving the proximal right ureter, nonspecific. This may be infectious or inflammatory in nature. Alternatively, this could also be due to a recently passed calculus. Correlate clinically. 11/30/2018 - CT CAP: Chest: Several subcentimeter right-sided pulmonary nodules are identified, largest measuring 4-5 mm. The patient's history, correlation with follow-up examination in 3-6 months is recommended to assess for stability. No substantial intrathoracic adenopathy is identified. A/P: Several subcentimeter retroperitoneal lymph nodes are identified, none of which appear pathologically enlarged. Given the patient's history, correlation with a follow-up study to assess for stability is recommended. Postoperative changes involving the abdomen and pelvis as above. 2022 egd colon Comment: A. Antrum, biopsy: -Minimal chronic inactive gastritis and reactive change in antral mucosa. -Oxyntic mucosa with mild PPI effect. -Negative for intestinal metaplasia or dysplasia. -No H. pylori on routine stain. B. Random colon, biopsy: -Colonic mucosa with no diagnostic abnormality. -No evidence of lymphocytic or collagenous colitis. 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 also She has had ongoing monitoring and did have elevated Cga --dont know if was on PPI at that time She follows with Dr Maynard Se had egd that did not have extensive biopsies but did not show atrophic gastritis She has chronic nausea, left lower quadrant pain and bloating Past notes describe complaint of diarrhea--it seems recently was loost stool once a day She now was just in ER , but in fact did not have bm for 4 days For my part: -I believe her abdominal pain is multiactorial, and likely includes abdominal wall pain that is quite evident on exam , constipation and visceral hypersenstivity -Her diarrhea may have been recently overflow -Advise bowel regimen with titration, ARMS -Recheck xray in 2 weeks -Agree with breath test, reorder -Advise I am happy to help how ever I can, she is happy with her primary community organization worker, just wanted some other thoughts -Fodmap diet with add back one food at a time as that has helped her in the past but can't keep up the full diet -In in future need gi input on carcinoid would recommend she see Dr April Mcnair who is expert in the field. -Has fh of early onset colon cancer in monther brother and ? Renal cell cancer in other brother --refer to genetics Lala Carbajal MD, PhD documented in this [facility] NoteHNO ID: [id number] Author: LALA CARBAJAL MD, PhD Service: ? Author Type: Physician Type: Progress Notes Filed: 12/09/2023 23:15 Note Text: CLINICAL HISTORY: This is a 53 year old female who presents today in consultation for an evaluation of abdominal pain at the request of Trey Brown DO Pt states 1 BM daily, regular to diarrhea without bleeding. 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 but wants a 2nd set of eyes She has pain all the time Has nausea off an on On her left side She says she was told the was due to constipation Finally went this am after a lot of laxative Usually she has diarrhea Started being constipated a few days ago That is rare Said she did not know she could be constipated Wondered if it was She went 3 days without a bm Usually she goes every day Some days are diarrhea days some are not Often is sticky and pasty Had white stool a few times The diarrhea is regular, usually once a day Sometimes strains Gets stomach spasms 2011 told she had 2 tumors in duodenum and stomach cancer Weight is up Has gained 40# Thinks its due to pain and can't exercise If her sides or stomach hurts she is nauseated She can't walk she feels she has swollen Calorie intake is 1200 Does the brat diet Her abdominen is distended Got a steroid and felt better and her abdomen was flat Told it was infection for the inflammation and given abx Treated for diverticulitis by Dr Booker Went to er with abdominal pain Went to [facility] er yesterday, has been 4 times in past 6 months Got dilaudid-that made her more constipated No blood in stool Nausea: on an off, not sure why Used to take creon, was stopped for ? Reason Did not feel any different except when eating red meat Says when eats red meat has constpiation but on creon that does not happen Diet: Eats sour dough bread with egg avacado Lunch chicken potato salad peppers apples grape Dinner what every stuffed peppers Foods bother her: Red meat, spicy foods etc VITALS: Blood pressure 131/89, pulse 74, height 157.5 cm (5' 2 ), weight 92.1 kg (203 lb 0.7 oz), SpO2 98%. ALLERGIES: Iodine, Atorvastatin, Bupropion, Iodinated Contrast Media, Mirtazapine, Nalbuphine, and Nubain [Nalbuphine Hcl] MEDICATIONS: Current Outpatient Medications Medication Sig Dispense Refill rosuvastatin (CRESTOR) 40 mg tablet Take 40 mg by mouth daily at bedtime. traZODone (DESYREL) 100 mg tablet Take 100 mg by mouth daily at bedtime. rOPINIRole (REQUIP) 0.25 mg tablet Take 0.5 mg by mouth once daily as needed. L.acid/B.bifidum/B.animal/FOS (PROBIOTIC COMPLEX ORAL) Take by mouth. No current facility-administered medications for this visit. 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 No date: Gall stones No date: GERD (gastroesophageal reflux disease) No date: Hemorrhoids No date: Hyperlipidemia No date: Stomach ulcer No date: UTI (urinary tract infection) PAST SURGICAL HISTORY: PAST SURGICAL HISTORY No date: ANESTH, SECTION No date: CHOLECYSTECTOMY 03/22/2016: COLONOSCOPY No date: EGD No date: HYSTERECTOMY HX Comment: told she still has cervix, was for bleeding No date: LAP REMOVE/REV MESH BLADDER WALL 04/2019: PAST SURGICAL HISTORY OF Comment: breast reconstruction No date: SLEEVE RESECTION STOMACH FAMILY HISTORY: mom with colon cancer and brother, 53, 54, brother with kidney cancer SOCIAL HISTORY: Social History Tobacco Use Smoking status: Former Types: Cigarettes Quit date: 05/2022 Years since quittin.5 Passive exposure: Current Smokeless tobacco: Never Vaping Use Vaping Use: Never used Substance Use Topics Alcohol use: Not Currently Drug use: No Work up to date: Abd CT Reviewed with patient during visit today. REVIEW OF SYSTEMS: GENERAL:+ weight gain, malaise or fevers., SEE HPI HEENT: Negative for frequent or significant headaches, NECK: Negative for lumps, goiter, pain and significant neck swelling RESPIRATORY: Negative for cough, wheezing or shortness of breath. CARDIOVASCULAR: Negative for chest pain, leg swelling or palpitations. GI: See HPI : No history of dysuria, frequency or incontinence CLEAT BLANKER: Had hysterectomy MUSCULOSKELETAL: Negative for joint pain or swelling, back pain or muscle pain. SKIN: Negative for lesions, rash, and itching. PSYCH: Negative for sleep disturbance--sleep apnea has maching , mood disorder and recent psychosocial stressors. HEMATOLOGY/LYMPHOLOGY Negative for prolonged bleeding, bruising easily or swollen nodes. ENDOCRINE: Negative for cold or heat intolerance, polyuria, polydipsia and goiter. All other reviewed and negative other than HPI. PHYSICAL EXAMINATION: GENERAL APPEARANCE: Well developed and well nourished. SKIN: Skin color, texture, turgor normal. No rashes or lesions. EYES: Conjunctiva normal without icterus. OROPHARYNX: l (more content not included)...[facility]08-01-2024 Instructions* Patient Instructions* Estephania Mobley - 12/08/2023 3:33 PM EDT Continue CREON more regularly. CT Chest with CT Liver pelvis + labs in 1 year Labs same day. Include chromogranin A. RTC 1 week after documented in this encounterC[facility] History of Present illness Narrative* Annemarie Judd MD - 12/08/2023 3:15 PM EDT Images from the original note were not included. NAME: Boaz Liundy CLINIC NO.: [id number] DATE OF SERVICE: December 08, 2023 (Benjamín) Some elements in this clinic note that are critical to medical decision making have been carefully reviewed and included from a prior clinic note dated: August 19, 2023 (Benjamín) Additional Clinicians involved in Hank Liu's care: Trey Brown DO ASSESSMENT: History of carcinoid of the upper GI tract. Resected in 2011 without adjuvant therapy. We don't have all the records and she is not clear on the details. Currently in surveillance. Has chronic diarrhea. Octrescan 10/24/17 did not identify recurrent or metastatic disease. Elevating chromogranin A in November 2018 prompted additional workup. Thyroid nodule resolved. Continues to have significant abdominal pain and bloating despite increase in Creon. Will ask GI tosee and in meanwhile obtained Dotatate imaging. Dotatate PET/CT with Chromogranin A, serotonin, VIP, Gastrin, CBC, CMP completed early August 2023 show no sign of disease recurrence. PLAN: Continue CREON more regularly. CT Chest with CT Liver pelvis + labs in 1 year Labs same day. Include chromogranin A. RTC 1 week after HPI: CASE HISTORY: Reverse Chronological Order 12/07/2023 - CT A/P: Bilateral nephrolithiasis without obstructive uropathy. No ureteralstone. Distal colonic diverticulosis. Moderate constipation. Fatty hepatomegaly. 11/30/2023 - CT Chest/Liver/Pelvis: Chest: Within the posterior base of the right lower lobe, there are stable linear and nodular opacities. Although nonspecific, these have been present on multiple prior studies and are decreased in extent when compared to a more remote comparison exam from 05/05/2023. These did not demonstrate tracer uptake on the recent dotatate PET CT. These are most likely to be infectious/inflammatory in etiology. Would advise continued close attention on imaging surveillance. No new or enlarging pulmonary nodules. No significant thoracic adenopathy. L/P: No evidence of metastatic disease in the abdomen or pelvis. Mild to moderate hepatic steatosis. Small nonobstructing right renal calculi. 08/10/2023 - PET/CT: No Dotatate avid neoplastic process. 07/20/2023 - CT Chest: Patchy opacities and reticulonodular opacities in right lower lobe, most likely infectious/inflammatory in etiology, decreased since 05/05/23. Consider follow- up to complete resolution. No evidence of new intrathoracic abnormalities since 05/05/23. 06/30/2023 - US Thyroid: 5 mm thyroid nodule 06/10/2023 - Screening Mammogram: BIRADS 1 - Negative 04/19/2023 - CT A/P: Stable CT examination of the abdomen and pelvis. No substantial intra-abdominal or pelvic lymphadenopathy is appreciated. Incidental note is again made of right-sided nonobstructive nephrolithiasis. Newly apparent right lower lobe airspace opacities, likely infectious/inflammatory in nature, correlation with follow-up examinations is recommended to assess for clearing. 07/06/2021 - CT A/P: No acute abdominal or pelvic abnormality. Mild biliary dilatation, likely physiologic and related to cholecystectomy. Right nephrolithiasis. 06/12/2019 - CT CAP: Chest: Stable CT of the chest. Unchanged appearance of right lower lobe nodular opacities measuringup to 5 mm. No new or enlarging nodules are seen. No evidence of bulky intrathoracic adenopathy. A/P: Overall stable CT of the abdomen and pelvis. No gross gastric mass is visualized. No evidence of bulky retroperitoneal or mesenteric adenopathy. Nonobstructing 1-2 mm calculi in the right kidney. Mild urothelial thickening involving the proximal right ureter, nonspecific. This may be infectious or inflammatory in nature. Alternatively, this could also be due to a recently passed calculus. Correlate clinically. 11/30/2018 - CT CAP: Chest: Several subcentimeter right-sided pulmonary nodules are identified, largest measuring 4-5 mm. The patient's history, correlation with follow-up examination in 3-6 months is recommended to assess for stability. No substantial intrathoracic adenopathy is identified. A/P: Several subcentimeter retroperitoneal lymph nodes are identified, none of which appear pathologically enlarged. Given the patient's history, correlation with a follow-up study to assess for stability is recommended. Postoperative changes involving the abdomen and pelvis as above. Updated Visit, December 08, 2023: Hank returns today. Last week's CT scan is stable. Chromogranin is normal. She was seen in the ER yesterday for significant left sided abdominal pain - CT scan which revealed constipation. She has taken several OTC laxatives and stool softeners without any effect. She reports this has happened in the past. She is following up with GI in [place] later this week. She also has an umbilical hernia thatwill need to be addressed if it becomes entrapped. She has pain on palpation.. Updated Visit, August 19, 2023: Virtual Visit Doing ok - seeing endocrine and possibly working up pituitary defect. Will keep GI with Dr. Booker and also see me in October as scheduled. Updated Visit, July 27, 2023: Virtual Visit Abdominal swelling and pain - heat makes it worse Try a simple diet. CT chest improving. Will recheck CT CAP in 3 months just before she returns. Message Dr. Booker to see sooner than September 22 Obtain records from most recent [facility] hospitalization. (Last month) Updated Visit, May 05, 2023: Hank returns today for follow up and to review her imaging. Reports doing well lately with the holidays, other than having pneumonia a couple weeks ago. Was dx with pneumonia in the right lung, but notes she has pain with a deep breath on the left side. She has been doing okay with the diarrhea, has been taking her Creon regularly. Does note has not really been taking much of anything the past few weeks since she has been feeling sick. She reports began experiencing chest pain that felt like her breast was bruised. Also has had pain under her rib cage that was a similar feeling. Updated Visit, March 14, 2023: Hank returns today for follow up, doing well since last visit. She has seen the ENT (Dr. Mann), and he told her that the thyroid nodule she was thought to have turned out not to be there. Reports being told of diverticulitis when she saw GI (Dr. Booker). She has not used the Creon for about 2 months because it wasn't making her feel great. She reports having some R sided pain recently. Also notes she was told a few months ago that she was at higher risk for a stroke due to her elevated lipids, has since started on a statin. Reviewed today's lab results. Updated Visit, September 13, 2022: Doing well. Losing weight. Enjoying working at [employer] [facility]. Eating better. Remains off of Ozempic. Labs reviewed. No clinical evidence of recurrence. Updated Visit, July 16, 2022: Hank presents today with multiple complaints but focusing on reflux pain. She has multiple areas of tenderness at S-C joints and forearms. imaging showed something on right clavicle as well as thyroid nodule Very sore throat - sounds like refulx Started ever since being on ozempic - throws up frequently. - Will have to stop Ozempic. BiRads 5 right thyroid gland nodule 0.4 x 0.4 x 0.4. will need FNA if > 1.0 Updated Visit, February 11, 2022: July 06, 2021 CT Abd / pelvis @ [facility]- right nephrolithiasis otherwise unremarkable. She called in regarding continued abdominal bloating and also bilateral arm pain Sleep apnea - on CPAP for past month - feeling like she's sleeping better Borderline DMII started metformin and then stopped it Will encourage to restart. Take creon more regularly, oncology nutrition consult Exam - abdomen is full, obese. Reproducible pain at multiple points along ribs as well as chest along sternum. Arms ache. Many of her pain issues may be related to her gain in weight in face of her prior abdominoplasty.. Updated Visit, June 25, 2021: She feels intermittent inflammation and discomfort around her rib cage associated with recurring feelings of bloating Had COVID in May - now the swellling in her abdomen is intensifying although it was occurring prior to COVID. Work at [employer] [facility] [facility] and after a long day she has the most symptoms Palpitations for quite some time - now has an implanted loop recorder. Has a lower abdominal ventral hernia that is palpable on exam today. Updated Visit, July 25, 2020: Hank is 50 yo and ad a history of resected carcinoid but was complaining of persisting abdominal pain. Ct scan was obtained and reviewed with her. No evidence of recurrence was noted. Her chromogranin was not elevated. She still has pain in the sides of her ribs for an unknown etiology, but felt mu sculoskelatal in nature. She had no other complaints and was relieved to know her scans were clear.Abdominal pain comes and goes and as mostly resolved. However, she has a kidney stone that has grown but is non-obstructing. Updated Visit, June 30, 2020: Stomach is keeping her up. She had recent scans in [facility]. We will discover these and call her next week to determine further testing. She has had no evidence of recurrence for at least 8 years following her resection. Updated Visit, January 07, 2020: Hank is 49 years old and returns in follow-up as a patient in transition from her previous oncologist. She reports that a couple of months ago was feeling progressively fatigued and weak she describes a sensation where she gets a vibration in the top of her head. This is currently being worked up by the vascular physicians. She was working at [employer] but [place] is in the [place] because she was not able to keep up with the heavy lifting. She tries to be very active and has been having trouble with fatigue. She is asymptomatic from a carcinoid perspective. It appears that she is quite overwhelmed with physician work-up and office visits at this time and I suggested that, since she has been completely asymptomatic for almost 8 years since her resection that we can decrease the amount of visits as well as avoid additionalsurveillance CT scans or laboratories. Patient's disease was originally identified in 2011 and underwent resection fully following. She used to have symptoms of diarrhea related to carcinoid but has been asymptomatic. Her chromogranin A has been unreliable with respect to disease follow-up. She has had multiple scans that show no evidence of recurrent disease. Prior Hx: December 07, 2018 (Dr. Mena) Still extreme tired all the time. egd and colonoscopy was ok with dr. Booker. dont have colonoscopy results of biopsy from egd but patient was told negative. Headaches same. Had eeg. Follows with Dr. Hall. MRI brain was normal. ECOG PERFORMANCE STATUS: 1 PHYSICAL EXAMINATION: Vitals: BP 119/77 Pulse 85 Temp (Src) 97.3 (Temporal) Resp 16 Wt 205 lb 7.5 oz (93.2kg) SpO2 96% Body surface area is 2.02 meters squared. Exam limited to gross visualization where appropriate. Gen.: This is an age-appropriate patient in no acute distress. Head: Appears atraumatic with no visible lesions. Eyes: Pupils equally round and reactive to light, extraocular muscles are intact. Neck: Supple. Respiratory: Appears to be respiring comfortably. Neurologic: Nonfocal to gross visualization. Alert and oriented 3. Psychiatric: No evidence of inappropriate anxiety or depression. Skin: Visible areas of skin without rash, lesions, wounds or petechiae. ALLERGIES: ALLERGIES Allergen Reactions Iodine Hives, Anaphylaxis, Shortness of Breath Other reaction(s): anaphylaxis Other reaction(s): Unknown Atorvastatin Other: See Comments Other Reaction(s): arthralgia/myalgia Bupropion Other: See Comments Other Reaction(s): Other: See Comments Iodinated Contrast * Hives, Other: See Comments, Shortness of Breath Other reaction(s): Difficulty Breathing Other Reaction(s): Difficulty Breathing, Other: See Comments Other reaction(s): Difficulty Breathing Mirtazapine Hives, Other: See Comments Nalbuphine Shortness of Breath, Other: See Comments, Myalgia Other Reaction(s): muscle spams, and breathing, Unknown Nubain [Nalbuphine * Unknown MEDICATIONS: rosuvastatin (CRESTOR) 40 mg tablet Take 40 mg by mouth daily at bedtime. traZODone (DESYREL) 100 mg tablet Take 100 mg by mouth daily at bedtime. rOPINIRole (REQUIP) 0.25 mg tablet Take 0.5 mg by mouth once daily as needed. LABORATORY VALUES: WBC (k/uL) Date Value 11/11/2023 5.34 RBC (m/uL) Date Value 11/11/2023 4.57 Hemoglobin (g/dL) Date Value 11/11/2023 12.8 Hematocrit (%) Date Value 11/11/2023 39.2 MCV (fL) Date Value 11/11/2023 85.8 MCH (pg) Date Value 11/11/2023 28.0 MCHC (g/dL) Date Value 11/11/2023 32.7 RDW-CV (%) Date Value 11/11/2023 13.9 Platelet Count (k/uL) Date Value 11/11/2023 231 MPV (fL) Date Value 11/11/2023 9.2 Glucose (mg/dL) Date Value 11/11/2023 110 (H) BUN (mg/dL) Date Value 11/11/2023 11 Creatinine (mg/dL) Date Value 11/11/2023 0.68 Sodium (mmol/L) Date Value 11/11/2023 141 Potassium (mmol/L) Date Value 11/11/2023 4.5 Chloride (mmol/L) Date Value 11/11/2023 105 CO2 (mmol/L) Date Value 11/11/2023 26 Protein, Total (g/dL) Date Value 11/11/2023 7.5 Albumin (g/dL) Date Value 11/11/2023 4.6 Calcium, Total (mg/dL) Date Value 11/11/2023 10.0 Alkaline Phosphatase (U/L) Date Value 11/11/2023 68 Bilirubin, Total (mg/dL) Date Value 11/11/2023 0.2 AST (U/L) Date Value 11/11/2023 26 ALT (U/L) Date Value 11/11/2023 17 DIAGNOSIS: (C7A.010) 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 encounter diagnosis) (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) (K86.81) Exocrine pancreatic insufficiency PAST MEDICAL HISTORY No date: Arthritis No date: Carcinoid tumor of stomach No date: Gall stones No date: GERD (gastroesophageal reflux disease) No date: Hemorrhoids No date: Hyperlipidemia No date: Stomach ulcer No date: UTI (urinary tract infection) PAST SURGICAL HISTORY No date: ANESTH, SECTION No date: CHOLECYSTECTOMY 03/22/2016: COLONOSCOPY No date: EGD No date: HYSTERECTOMY HX Comment: told she still has cervix, was for bleeding No date: LAP REMOVE/REV MESH BLADDER WALL 04/2019: PAST SURGICAL HISTORY OF Comment: breast reconstruction No date: SLEEVE RESECTION STOMACH Social History Tobacco Use Smoking status: Former Types: Cigarettes Quit date: 05/2022 Years since quittin.5 Passive exposure: Current Smokeless tobacco: Never Vaping Use Vaping Use: Never used Substance Use Topics Alcohol use: Not Currently Drug use: No FAMILY HISTORY Problem Relation Age of Onset Diabetes Mother Colon Cancer Mother 55 detected on autopsy Aneurysm Mother 55 aortic Heart disease Father Hyperlipidemia Father Stroke Father Cancer Brother 48 kidney Cancer Brother spinal cord I spent a total of 30 minutes on the date of service which included preparing to see the patient, [id number] patient care, completing clinical documentation, performing a medically appropriate examination, counseling and educating the patient/family/caregiver, ordering medications, tests, or procedures, independently interpreting results (not separately reported), communicating results to the patient/family/caregiver, and care coordination (not separately reported). Annemarie Judd MD, CPE Hematology and Oncology Services Provided at: [place], [place] Scribe Attestation: This note was scribed by Estephania Mobley on December 08, 2023 under the direction and supervision ofDr. Annemarie Judd. I attest that all of the information documented is correct to the best of my knowledge. Provider Attestation: I, Annemarie Judd MD, attest that all information documented by the above scribe is correct, and was supervised by me and under my direction. CC: Trey Brown DO [address] [facility] [id number] Naty Booker DO documented in this encounterC[facility] NoteHNO ID: [id number] Author: ANNEMARIE JUDD MD Service: ? Author Type: Physician Type: Progress Notes Filed: 12/10/2023 12:49 Note Text: NAME: Hank Liu CLINIC NO.: [id number] DATE OF SERVICE: December 08, 2023 (Benjamín) Some elements in this clinic note that are critical to medical decision making have been carefully reviewed and included from a prior clinic note dated: August 19, 2023 (Benjamín) Additional Clinicians involved in Hank Liu's care: Trey Brown DO ASSESSMENT: History of carcinoid of the upper GI tract. Resected in 2011 without adjuvant therapy. We don't have all the records and she is not clear on the details. Currently in surveillance. Has chronic diarrhea. Octrescan 10/24/17 did not identify recurrent or metastatic disease. Elevating chromogranin A in November 2018 prompted additional workup. Thyroid nodule resolved. Continues to have significant abdominal pain and bloating despite increase in Creon. Will ask GI to see and in meanwhile obtained Dotatate imaging. Dotatate PET/CT with Chromogranin A, serotonin, VIP, Gastrin, CBC, CMP completed early August 2023 show no sign of disease recurrence. PLAN: Continue CREON more regularly. CT Chest with CT Liver pelvis + labs in 1 year Labs same day. Include chromogranin A. RTC 1 week after HPI: CASE HISTORY: Reverse Chronological Order 12/07/2023 - CT A/P: Bilateral nephrolithiasis without obstructive uropathy. No ureteralstone. Distal colonic diverticulosis. Moderate constipation. Fatty hepatomegaly. 11/30/2023 - CT Chest/Liver/Pelvis: Chest: Within the posterior base of the right lower lobe, there are stable linear and nodular opacities. Although nonspecific, these have been present on multiple prior studies and are decreased in extent when compared to a more remote comparison exam from 05/05/2023. These did not demonstrate tracer uptake on the recent dotatate PET CT. These are most likely to be infectious/inflammatory in etiology. Would advise continued close attention on imaging surveillance. No new or enlarging pulmonary nodules. No significant thoracic adenopathy. L/P: No evidence of metastatic disease in the abdomen or pelvis. Mild to moderate hepatic steatosis. Small nonobstructing right renal calculi. 08/10/2023 - PET/CT: No Dotatate avid neoplastic process. 07/20/2023 - CT Chest: Patchy opacities and reticulonodular opacities in right lower lobe, most likely infectious/inflammatory in etiology, decreased since 05/05/23. Consider follow-up to complete resolution. No evidence of new intrathoracic abnormalities since 05/05/23. 06/30/2023 - US Thyroid: 5 mm thyroid nodule 06/10/2023 - Screening Mammogram: BIRADS 1 - Negative 04/19/2023 - CT A/P: Stable CT examination of the abdomen and pelvis. No substantial intra-abdominal or pelvic lymphadenopathy is appreciated. Incidental note is again made of right-sided nonobstructive nephrolithiasis. Newly apparent right lower lobe airspace opacities, likely infectious/inflammatory in nature, correlation with follow-up examinations is recommended to assess for clearing. 07/06/2021 - CT A/P: No acute abdominal or pelvic abnormality. Mild biliary dilatation, likely physiologic and related to cholecystectomy. Right nephrolithiasis. 06/12/2019 - CT CAP: Chest: Stable CT of the chest. Unchanged appearance of right lower lobe nodular opacities measuring up to 5 mm. No new or enlarging nodules are seen. No evidence of bulky intrathoracic adenopathy. A/P: Overall stable CT of the abdomen and pelvis. No gross gastric mass is visualized. No evidence of bulky retroperitoneal or mesenteric adenopathy. Nonobstructing 1-2 mm calculi in the right kidney. Mild urothelial thickening involving the proximal right ureter, nonspecific. This may be infectious or inflammatory in nature. Alternatively, this could also be due to a recently passed calculus. Correlate clinically. 11/30/2018 - CT CAP: Chest: Several subcentimeter right-sided pulmonary nodules are identified, largest measuring 4-5 mm. The patient's history, correlation with follow-up examination in 3-6 months is recommended to assess for stability. No substantial intrathoracic adenopathy is identified. A/P: Several subcentimeter retroperitoneal lymph nodes are identified, none of which appear pathologically enlarged. Given the patient's history, correlation with a follow-up study to assess for stability is recommended. Postoperative changes involving the abdomen and pelvis as above. Updated Visit, December 08, 2023: Hank returns today. Last week's CT scan is stable. Chromogranin is normal. She was seen in the ER yesterday for significant left sided abdominal pain - CT scan which revealed constipation. She has taken several OTC laxatives and stool softeners without any effect. She reports t (more content not included)... [facility]07-29-2024 Telephone encounter Note* Telephone Encounter - Tonio Meyer MA - 12/05/2023 4:34 PM EDT If needed, place lab orders for appointment scheduled 12/07. Tonio Meyer MA [facility]07-29-2024 Miscellaneous Notes* Telephone Encounter - Tonio Meyer MA - 12/05/2023 4:34 PM EDT If needed, place lab orders for appointment scheduled 12/07. Tonio Meyer MA documented in this encounterC[facility]07-24-[facility] History of Present illness Narrative* Surya Conley RN - 11/30/2023 10:15 AM EDT Radiology Service Progress Note DATE OF SERVICE: November 30, 2023 TIME: 10:31 AM PATIENT WEIGHT: 204LBS PATIENT IDENTITY VERIFICATION COMPLETED USING TWO (2) STANDARD IDENTIFIERS: Name and Date of confirmed by patient verbally. FALL SCREENING: Has the patient had 2 falls in the last year or 1 fall with injury or currently using an Ambulatory Assistive Device (Walker, Cane, Wheelchair, Crutches, etc.)? No PATIENT GENDER DATA: Female. status: : No status: NO. ALLERGIES: Reviewed and unchanged CONTRAST ALLERGY: No EXAM: CT -CONTRAST INDUCED NEPHROPATHY RISK FACTORS: History of Kidney surgery, Kidney neoplasm, Liver disease, and/or any recent Nephrotoxic Chemotherapy or other Nephrotoxic medications CREATININE: Creatinine Date Value Ref Range Status 11/11/2023 0.68 0.58 - 0.96 mg/dL Final 08/15/2023 0.77 0.58 - 0.96 mg/dL Final 03/14/2023 0.72 0.58 - 0.96 mg/dL Final Estimated Glomerular Filtration Rate Date Value Ref Range Status 11/11/2023 103 >=60 mL/min/1.73m Final Comment: Estimated Glomerular Filtration Rate (eGFR) is calculated using the 2020 CKD-EPI creatinine equation. This equation utilizes serum creatinine, sex, and age as parameters. The creatinine assay has traceable calibration to isotope dilution- mass spectrometry. Refer to KDIGO guidelines for clinical interpretation. In patients with unstable renal function, e.g. those with acute kidney injury, the eGFRmay not accurately reflect actual GFR. eGFR- Date Value Ref Range Status 06/25/2021 >60 Final P.O.C.T. RESULTS: POC done: Yes, See Lab Tab November 30, 2023 TREATMENT: N/A IV SITE: Ambulatory: A peripheral IV was started in the Left antecubital site with a Angio cath: 20gauge. IV SITE APPEARANCE: Clean,Dry and Intact Pt with contrast allergy. Premeds of Prednisone and Benadryl taken per protocol Observed [id number] scan. No c/o itching, nausea, respiratory distress Dc'd from area without problems SIGNATURE: Surya Conley RN PATIENT NAME: Hank Liu DATE: November 30, 2023 TIME: 10:31 AM * Andra Willson, RT(R) - 11/30/2023 10:15 AM EDT Radiology Service Progress Note PATIENT NAME: Hank Liu DATE OF SERVICE: November 30, 2023 TIME: 10:48 AM PATIENT IDENTITY VERIFICATION COMPLETED USING TWO (2) IDENTIFIERS: Name and Date of confirmedby patient verbally. FALL SCREENING: Has the patient had 2 falls in the last year or 1 fall with injury or currently using an Ambulatory Assistive Device (Walker, Cane, Wheelchair, Crutches, etc.)? No PATIENT GENDER DATA: Female. status: : No status: NO. PATIENT RELEVANT IMPLANT DATA REVIEWED: Not Applicable PATIENT PRESENTS WITH AN IMPLANTABLE OR ATTACHED GILL BOX FIXER: No RADIOLOGY DEPARTMENT: CT; Exam(s) Completed: Chest, Liver , and Pelvis PERIPHERAL IV DATA: Site assessment: Clean,Dry and Intact, Site disposition Discontinued SIGNED BY: LEONARD Robison) November 30, 2023 10:48 AM documented in this encounterC[facility]07-24-2024 NoteHNO ID: [id number] Author: ANDRA WILLSON RT (R) Service: ? Author Type: Technologist Type: Progress Notes Filed: 11/30/2023 10:49 Note Text: Radiology Service Progress Note PATIENT NAME: Hank iLu DATE OF SERVICE: November 30, 2023 TIME: 10:48 AM PATIENT IDENTITY VERIFICATION COMPLETED USING TWO (2) IDENTIFIERS: Name and Date of confirmed by patient verbally. FALL SCREENING: Has the patient had 2 falls in the last year or 1 fall with injury or currently using an Ambulatory Assistive Device (Walker, Cane, Wheelchair, Crutches, etc.)? No PATIENT GENDER DATA: Female. status: : No status: NO. PATIENT RELEVANT IMPLANT DATA REVIEWED: Not Applicable PATIENT PRESENTS WITH AN IMPLANTABLE OR ATTACHED GILL BOX FIXER: No RADIOLOGY DEPARTMENT: CT; Exam(s) Completed: Chest, Liver , and Pelvis PERIPHERAL IV DATA: Site assessment: Clean,Dry and Intact, Site disposition Discontinued SIGNED BY: RT Enriqueta(Bernadro) November 30, 2023 10:48 [facility]07-24-2024 NoteHNO ID: [id number] Author: SURYA CONLEY RN Service: ? Author Type: Registered Nurse Type: Progress Notes Filed: 11/30/2023 11:45 Note Text: Radiology Service Progress Note DATE OF SERVICE: November 30, 2023 TIME: 10:31 AM PATIENT WEIGHT: 204LBS PATIENT IDENTITY VERIFICATION COMPLETED USING TWO (2) STANDARD IDENTIFIERS: Name and Date of confirmed by patient verbally. FALL SCREENING: Has the patient had 2 falls in the last year or 1 fall with injury or currently using an Ambulatory Assistive Device (Walker, Cane, Wheelchair, Crutches, etc.)? No PATIENT GENDER DATA: Female. status: : No status: NO. ALLERGIES: Reviewed and unchanged CONTRAST ALLERGY: No EXAM: CT -CONTRAST INDUCED NEPHROPATHY RISK FACTORS: History of Kidney surgery, Kidney neoplasm, Liver disease, and/or any recent Nephrotoxic Chemotherapy or other Nephrotoxic medications CREATININE: Creatinine Date Value Ref Range Status 11/11/2023 0.68 0.58 - 0.96 mg/dL Final 08/15/2023 0.77 0.58 - 0.96 mg/dL Final 03/14/2023 0.72 0.58 - 0.96 mg/dL Final Estimated Glomerular Filtration Rate Date Value Ref Range Status 11/11/2023 103 >=60 mL/min/1.73m? Final Comment: Estimated Glomerular Filtration Rate (eGFR) is calculated using the 2020 CKD-EPI creatinine equation. This equation utilizes serum creatinine, sex, and age as parameters. The creatinine assay has traceable calibration to isotope dilution-mass spectrometry. Refer to KDIGO guidelines for clinical interpretation. In patients with unstable renal function, e.g. those with acute kidney injury, the eGFR may not accurately reflect actual GFR. eGFR- Date Value Ref Range Status 06/25/2021 >60 Final P.O.C.T. RESULTS: POC done: Yes, See Lab Tab November 30, 2023 TREATMENT: N/A IV SITE: Ambulatory: A peripheral IV was started in the Left antecubital site with a Angio cath: 20 gauge. IV SITE APPEARANCE: Clean,Dry and Intact Pt with contrast allergy. Premeds of Prednisone and Benadryl taken per protocol Observed [id number] post scan. No c/o itching, nausea, respiratory distress Dc'd from area without problems SIGNATURE: Surya Conley RN PATIENT NAME: Hank Liu DATE: November 30, 2023 TIME: 10:31 [facility]06-20-2024 Telephone encounter Note* Telephone Encounter - Franklyn Gisell - 10/27/2023 10:20 AM EDT Patient is scheduled for a CT scan and labwork on 11/29. She is scheduled for a follow-up after her scan with Dr. Amaral on 12/07. I spoke with Hank, she is in agreement. Gisell Bah [facility]06-20-2024 Miscellaneous Notes* Telephone Encounter - Gisell Estes - 10/27/2023 10:20 AM EDT Patient is scheduled for a CT scan and labwork on Tuesday, 11/29. She is scheduled for a follow-up after her scan with Dr. Amaral on 12/07. I spoke with Hank, she is in agreement. Gisell Bah * Telephone Encounter - Hillary Morgan - 10/25/2023 2:21 PM EDT Lvm to reschedule CT scan appointment per [facility] the week of 11/28/2023 & TIA appointment either12/07 or 12/09/2023 3 pm or after. Patient can either come day before CT to get labs or day of CT earlier. Hillary Morgan documented in this encounterC[facility] Clinic [facility]06-18-2024 Telephone encounter Note * Telephone Encounter - Hillary Morgan - 10/25/2023 2:21 PM EDT [facility] & TIA appointment either12/07 or 12/09/2023 3 pm or after. Patient can either come day before CT to get labs or day of CT earlier. Hillary Morgan [facility]05-31-2024 Miscellaneous Notes* Telephone Encounter - Surya Conley RN - 10/07/2023 1:16 PM EDT Pt with IV contrast allergy-please sign pended orders for premeds and 6 month lab f/u if agreeable Thank You! Surya Conley RN documented in this encounterC[facility]05-31-20[facility] Telephone encounter Note * Telephone Encounter - Surya Conley RN - 10/07/2023 1:16 PM EDT Pt with IV contrast allergy-please sign pended orders for premeds and 6 month lab f/u if agreeable Thank You! Surya Conley RN [facility]05-08-2024 Telephone encounter Note* Telephone Encounter - Heather Mccain MA - 09/14/2023 8:40 AM EDT Phoned patient. Message from provider that labs WNL and appointment can be canceled if patient agrees. Patient agrees, I will cancel appointment. Heather Mccain MA [facility]05-08-2024 Miscellaneous Notes* Telephone Encounter - Heather Mccain MA - 09/14/2023 8:40 AM EDT Phoned patient. Message from provider that labs WNL and appointment can be canceled if patient agrees. Patient agrees, I will cancel appointment. Heather Mccain MA * Telephone Encounter - Lacie Martines - 09/13/2023 1:40 PM EDT Patient is requesting to speak with clinical caregiver about most recent lab results and if she needs to schedule a follow up visit. documented in this encounterC[facility]05-07-20[facility] Telephone encounter Note * Telephone Encounter - Lacie Martines - 09/13/2023 1:40 PM EDT Patient is requesting to speak with clinical caregiver about most recent lab results and if she needs to schedule a follow up visit. [facility]04-16-2024 Instructions* Patient Instructions* Annemarie Judd MD - 08/23/2023 3:18 PM EDT Continue CREON more regularly. CT Chest with CT Liver pelvis + labs already scheduled in October Labs same day. Include chromogranin A. RTC after to review as scheduled documented in this encounterCleveland Clinic [facility]04-12-20[facility] History of Present illness Narrative* Annemarie Judd MD - 08/19/2023 4:45 PM EDT Images from the original note were not included. NAME: Hank Liu CLINIC NO.: [id number] DATE OF SERVICE: August 19, 2023 (Benjamín) Some elements in this clinic note that are critical to medical decision making have been carefully reviewed and included from a prior clinic note dated: July 27, 2023 (Benjamín) Additional Clinicians involved in Hank Liu's care: Trey Brown DO VIRTUAL VISIT PROGRESS NOTE This is a virtual visit using [employer] Break Out Worker Video Call. It required patient- provider interaction for the medical decision making as documented below. I have communicated my name and active licensure. The patient's identity and physical location wereverified at the time of this visit. Either the patient or their legal sales training representative has been informed of the risks and benefits of -- and alternatives to -- treatment through a remote evaluation andconsents to proceed with the evaluation remotely. ASSESSMENT: History of carcinoid of the upper GI tract. Resected in 2011 without adjuvant therapy. We don't have all the records and she is not clear on the details. Currently in surveillance. Has chronic diarrhea. Octrescan 10/24/17 did not identify recurrent or metastatic disease. Elevating chromogranin A in November 2018 prompted additional workup. Thyroid nodule resolved. Continues to have significant abdominal pain and bloating despite increase in Creon. Will ask GI tosee and in meanwhile obtained Dotatate imaging. Dotatate PET/CT with Chromogranin A, serotonin, VIP, Gastrin, CBC, CMP completed early August 2023 show no sign of disease recurrence. PLAN: Continue CREON more regularly. CT Chest with CT Liver pelvis + labs already scheduled in October Labs same day. Include chromogranin A. RTC after to review as scheduled HPI: CASE HISTORY: Reverse Chronological Order 08/10/2023 - PET/CT: No Dotatate avid neoplastic process. 07/20/2023 - CT Chest: Patchy opacities and reticulonodular opacities in right lower lobe, most likely infectious/inflammatory in etiology, decreased since 05/05/23. Consider follow- up to complete resolution. No evidence of new intrathoracic abnormalities since 05/05/23. 06/30/2023 - US Thyroid: 5 mm thyroid nodule 06/10/2023 - Screening Mammogram: BIRADS 1 - Negative 04/19/2023 - CT A/P: Stable CT examination of the abdomen and pelvis. No substantial intra-abdominal or pelvic lymphadenopathy is appreciated. Incidental note is again made of right-sided nonobstructive nephrolithiasis. Newly apparent right lower lobe airspace opacities, likely infectious/inflammatory in nature, correlation with follow-up examinations is recommended to assess for clearing. 07/06/2021 - CT A/P: No acute abdominal or pelvic abnormality. Mild biliary dilatation, likely physiologic and related to cholecystectomy. Right nephrolithiasis. 06/12/2019 - CT CAP: Chest: Stable CT of the chest. Unchanged appearance of right lower lobe nodular opacities measuringup to 5 mm. No new or enlarging nodules are seen. No evidence of bulky intrathoracic adenopathy. A/P: Overall stable CT of the abdomen and pelvis. No gross gastric mass is visualized. No evidence of bulky retroperitoneal or mesenteric adenopathy. Nonobstructing 1-2 mm calculi in the right kidney. Mild urothelial thickening involving the proximal right ureter, nonspecific. This may be infectious or inflammatory in nature. Alternatively, this could also be due to a recently passed calculus. Correlate clinically. 11/30/2018 - CT CAP: Chest: Several subcentimeter right-sided pulmonary nodules are identified, largest measuring 4-5 mm. The patient's history, correlation with follow-up examination in 3-6 months is recommended to assess for stability. No substantial intrathoracic adenopathy is identified. A/P: Several subcentimeter retroperitoneal lymph nodes are identified, none of which appear pathologically enlarged. Given the patient's history, correlation with a follow-up study to assess for stability is recommended. Postoperative changes involving the abdomen and pelvis as above. Updated Visit, August 19, 2023: Virtual Visit Doing ok - seeing endocrine and possibly working up pituitary defect. Will keep GI with Dr. Booker and also see me in October as scheduled. Updated Visit, July 27, 2023: Virtual Visit Abdominal swelling and pain - heat makes it worse Try a simple diet. CT chest improving. Will recheck CT CAP in 3 months just before she returns. Message Dr. Booker to see sooner than September 22 Obtain records from most recent [facility] hospitalization. (Last month) Updated Visit, May 05, 2023: Hank returns today for follow up and to review her imaging. Reports doing well lately with the holidays, other than having pneumonia a couple weeks ago. Was dx with pneumonia in the right lung, but notes she has pain with a deep breath on the left side. She has been doing okay with the diarrhea, has been taking her Creon regularly. Does note has not really been taking much of anything the past few weeks since she has been feeling sick. She reports began experiencing chest pain that felt like her breast was bruised. Also has had pain under her rib cage that was a similar feeling. Updated Visit, March 14, 2023: Hank returns today for follow up, doing well since last visit. She has seen the ENT (Dr. Mann), and he told her that the thyroid nodule she was thought to have turned out not to be there. Reports being told of diverticulitis when she saw GI (Dr. Booker). She has not used the Creon for about 2 months because it wasn't making her feel great. She reports having some R sided pain recently. Also notes she was told a few months ago that she was at higher risk for a stroke due to her elevated lipids, has since started on a statin. Reviewed today's lab results. Updated Visit, September 13, 2022: Doing well. Losing weight. Enjoying working at [facility]. Eating better. Remains off of Ozempic. Labs reviewed. No clinical evidence of recurrence. Updated Visit, July 16, 2022: Hank presents today with multiple complaints but focusing on reflux pain. She has multiple areas of tenderness at S-C joints and forearms. imaging showed something on right clavicle as well as thyroid nodule Very sore throat - sounds like refulx Started ever since being on ozempic - throws up frequently. - Will have to stop Ozempic. BiRads 5 right thyroid gland nodule 0.4 x 0.4 x 0.4. will need FNA if > 1.0 Updated Visit, February 11, 2022: July 06, 2021 CT Abd / pelvis @ [facility]- right nephrolithiasis otherwise unremarkable. She called in regarding continued abdominal bloating and also bilateral arm pain Sleep apnea - on CPAP for past month - feeling like she's sleeping better Borderline DMII started metformin and then stopped it Will encourage to restart. Take creon more regularly, oncology nutrition consult Exam - abdomen is full, obese. Reproducible pain at multiple points along ribs as well as chest along sternum. Arms ache. Many of her pain issues may be related to her gain in weight in face of her prior abdominoplasty.. Updated Visit, June 25, 2021: She feels intermittent inflammation and discomfort around her rib cage associated with recurring feelings of bloating Had COVID in May - now the swellling in her abdomen is intensifying although it was occurring prior to COVID. Work at [facility] and after a long day she has the most symptoms Palpitations for quite some time - now has an implanted loop recorder. Has a lower abdominal ventral hernia that is palpable on exam today. Updated Visit, July 25, 2020: Hank is 50 yo and ad a history of resected carcinoid but was complaining of persisting abdominal pain. Ct scan was obtained and reviewed with her. No evidence of recurrence was noted. Her chromogranin was not elevated. She still has pain in the sides of her ribs for an unknown etiology, but felt mu sculoskelatal in nature. She had no other complaints and was relieved to know her scans were clear.Abdominal pain comes and goes and as mostly resolved. However, she has a kidney stone that has grown but is non-obstructing. Updated Visit, June 30, 2020: Stomach is keeping her up. She had recent scans in [facility]. We will discover these and call her next week to determine further testing. She has had no evidence of recurrence for at least 8 years following her resection. Updated Visit, January 07, 2020: Hank is 49 years old and returns in follow-up as a patient in transition from her previous oncologist. She reports that a couple of months ago was feeling progressively fatigued and weak she describes a sensation where she gets a vibration in the top of her head. This is currently being worked up by the vascular physicians. She was working at [employer] but [place] is in the [place] because she was not able to keep up with the heavy lifting. She tries to be very active and has been having trouble with fatigue. She is asymptomatic from a carcinoid perspective. It appears that she is quite overwhelmed with physician work-up and office visits at this time and I suggested that, since she has been completely asymptomatic for almost 8 years since her resection that we can decrease the amount of visits as well as avoid additionalsurveillance CT scans or laboratories. Patient's disease was originally identified in 2011 and underwent resection fully following. She used to have symptoms of diarrhea related to carcinoid but has been asymptomatic. Her chromogranin A has been unreliable with respect to disease follow-up. She has had multiple scans that show no evidence of recurrent disease. Prior Hx: December 07, 2018 (Dr. Mena) Still extreme tired all the time. [facility] and colonoscopy was ok with dr. Booker. dont have colonoscopy results of biopsy from [facility] but patient was told negative. Headaches same. Had eeg. Follows with Dr. Hall. MRI brain was normal. ECOG PERFORMANCE STATUS: 1 PHYSICAL EXAMINATION: Vitals: There were no vitals taken for this visit. There is no height or weight on file to calculate BSA. No exam ALLERGIES: ALLERGIES Allergen Reactions Iodine Hives, Anaphylaxis, Shortness of Breath Other reaction(s): anaphylaxis Other reaction(s): Unknown Atorvastatin Other: See Comments Other Reaction(s): arthralgia/myalgia Bupropion Other: See Comments Other Reaction(s): Other: See Comments Iodinated Contrast * Hives, Other: See Comments, Shortness of Breath Other reaction(s): Difficulty Breathing Other Reaction(s): Difficulty Breathing, Other: See Comments Other reaction(s): Difficulty Breathing Mirtazapine Hives, Other: See Comments Nalbuphine Shortness of Breath, Other: See Comments, Myalgia Other Reaction(s): muscle spams, and breathing, Unknown Nubain [Nalbuphine * Unknown MEDICATIONS: dicyclomine (BENTYL) 20 mg tablet Take 1 tablet by mouth three times a day. predniSONE (DELTASONE) 50 mg Take 1 tablet by mouth as directed. Take 1 tablet @ 24H prior, 12H prior, 6H Prior and 1H prior - to CT scan for dye allergy. rosuvastatin (CRESTOR) 40 mg tablet Take 40 mg by mouth daily at bedtime. traZODone (DESYREL) 100 mg tablet Take 100 mg by mouth daily at bedtime. OMEGA-3 ACID ETHYL ESTERS ORAL Take 2 capsules by mouth. rOPINIRole (REQUIP) 0.25 mg tablet Take 0.5 mg by mouth once daily as needed. L.acid/B.bifidum/B.animal/FOS (PROBIOTIC COMPLEX ORAL) Take by mouth. valACYclovir (VALTREX) 500 mg tablet 500 mg. LABORATORY VALUES: WBC (k/uL) Date Value 08/15/2023 4.79 RBC (m/uL) Date Value 08/15/2023 4.65 Hemoglobin (g/dL) Date Value 08/15/2023 13.1 Hematocrit (%) Date Value 08/15/2023 39.2 MCV (fL) Date Value 08/15/2023 84.3 MCH (pg) Date Value 08/15/2023 28.2 MCHC (g/dL) Date Value 08/15/2023 33.4 RDW-CV (%) Date Value 08/15/2023 13.7 Platelet Count (k/uL) Date Value 08/15/2023 240 MPV (fL) Date Value 08/15/2023 9.4 Glucose (mg/dL) Date Value 08/15/2023 111 (H) BUN (mg/dL) Date Value 08/15/2023 11 Creatinine (mg/dL) Date Value 08/15/2023 0.77 Sodium (mmol/L) Date Value 08/15/2023 143 Potassium (mmol/L) Date Value 08/15/2023 4.6 Chloride (mmol/L) Date Value 08/15/2023 107 (H) CO2 (mmol/L) Date Value 08/15/2023 25 Protein, Total (g/dL) Date Value 08/15/2023 7.2 Albumin (g/dL) Date Value 08/15/2023 4.7 Calcium, Total (mg/dL) Date Value 08/15/2023 10.2 Alkaline Phosphatase (U/L) Date Value 08/15/2023 54 Bilirubin, Total (mg/dL) Date Value 08/15/2023 0.3 AST (U/L) Date Value 08/15/2023 39 (H) ALT (U/L) Date Value 08/15/2023 24 DIAGNOSIS: (C7A.010) 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 encounter diagnosis) (K86.81) Exocrine pancreatic insufficiency (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) (R91.1) Lung nodule (R14.0) Bloating (E04.1) Thyroid nodule greater than or equal to 1.5 cm in diameter incidentally noted on imaging study PAST MEDICAL HISTORY Diagnosis Date Arthritis Carcinoid tumor of stomach Gall stones GERD (gastroesophageal reflux disease) Hemorrhoids Hyperlipidemia Stomach ulcer UTI (urinary tract infection) PAST SURGICAL HISTORY Procedure Laterality Date ANESTH, SECTION CHOLECYSTECTOMY COLONOSCOPY 03/22/2016 EGD HYSTERECTOMY HX LAP REMOVE/REV MESH BLADDER WALL PAST SURGICAL HISTORY OF 04/2019 breast reconstruction SLEEVE RESECTION STOMACH Social History Tobacco Use Smoking status: Former Types: Cigarettes Quit date: 05/2022 Years since quittin.2 Passive exposure: Current Smokeless tobacco: Never Vaping Use Vaping Use: Never used Substance Use Topics Alcohol use: Not Currently Drug use: No FAMILY HISTORY Problem Relation Age of Onset Diabetes Mother Colon Cancer Mother 55 detected on autopsy Aneurysm Mother 55 aortic Heart disease Father Hyperlipidemia Father Stroke Father Cancer Brother 48 kidney Cancer Brother spinal cord I spent a total of 20 minutes on the date of service which included preparing to see the patient, completing clinical documentation, counseling and educating the patient/family/caregiver, ordering medications, tests, or procedures, independently interpreting results (not separately reported), and communicating results to the patient/family/caregiver. Annemarie Judd MD, CPE Hematology and Oncology Services Provided at: [place], [place] CC: Trey Brown DO [address] [facility] [id number] Naty Booker DO documented in this encounterCleveland [facility] NoteHNO ID: [id number] Author: ANNEMARIE JUDD MD Service: ? Author Type: Physician Type: Progress Notes Filed: 08/23/2023 15:20 Note Text: NAME: Hank Liu CLINIC NO.: [id number] DATE OF SERVICE: August 19, 2023 (Benjamín) Some elements in this clinic note that are critical to medical decision making have been carefully reviewed and included from a prior clinic note dated: July 27, 2023 (demialiyah) Additional Clinicians involved in Hank Liu's care: Trey Brown DO VIRTUAL VISIT PROGRESS NOTE This is a virtual visit using [employer]. It required patient-provider interaction for the medical decision making as documented below. I have communicated my name and active licensure. The patient's identity and physical location were verified at the time of this visit. Either the patient or their legal sales training representative has been informed of the risks and benefits of -- and alternatives to -- treatment through a remote evaluation and consents to proceed with the evaluation remotely. ASSESSMENT: History of carcinoid of the upper GI tract. Resected in 2011 without adjuvant therapy. We don't have all the records and she is not clear on the details. Currently in surveillance. Has chronic diarrhea. Octrescan 10/24/17 did not identify recurrent or metastatic disease. Elevating chromogranin A in November 2018 prompted additional workup. Thyroid nodule resolved. Continues to have significant abdominal pain and bloating despite increase in Creon. Will ask GI to see and in meanwhile obtained Dotatate imaging. Dotatate PET/CT with Chromogranin A, serotonin, VIP, Gastrin, CBC, CMP completed early August 2023 show no sign of disease recurrence. PLAN: Continue CREON more regularly. CT Chest with CT Liver pelvis + labs already scheduled in October Labs same day. Include chromogranin A. RTC after to review as scheduled HPI: CASE HISTORY: Reverse Chronological Order 08/10/2023 - PET/CT: No Dotatate avid neoplastic process. 07/20/2023 - CT Chest: Patchy opacities and reticulonodular opacities in right lower lobe, most likely infectious/inflammatory in etiology, decreased since 05/05/23. Consider follow-up to complete resolution. No evidence of new intrathoracic abnormalities since 05/05/23. 06/30/2023 - US Thyroid: 5 mm thyroid nodule 06/10/2023 - Screening Mammogram: BIRADS 1 - Negative 04/19/2023 - CT A/P: Stable CT examination of the abdomen and pelvis. No substantial intra-abdominal or pelvic lymphadenopathy is appreciated. Incidental note is again made of right-sided nonobstructive nephrolithiasis. Newly apparent right lower lobe airspace opacities, likely infectious/inflammatory in nature, correlation with follow-up examinations is recommended to assess for clearing. 07/06/2021 - CT A/P: No acute abdominal or pelvic abnormality. Mild biliary dilatation, likely physiologic and related to cholecystectomy. Right nephrolithiasis. 06/12/2019 - CT CAP: Chest: Stable CT of the chest. Unchanged appearance of right lower lobe nodular opacities measuring up to 5 mm. No new or enlarging nodules are seen. No evidence of bulky intrathoracic adenopathy. A/P: Overall stable CT of the abdomen and pelvis. No gross gastric mass is visualized. No evidence of bulky retroperitoneal or mesenteric adenopathy. Nonobstructing 1-2 mm calculi in the right kidney. Mild urothelial thickening involving the proximal right ureter, nonspecific. This may be infectious or inflammatory in nature. Alternatively, this could also be due to a recently passed calculus. Correlate clinically. 11/30/2018 - CT CAP: Chest: Several subcentimeter right-sided pulmonary nodules are identified, largest measuring 4-5 mm. The patient's history, correlation with follow-up examination in 3-6 months is recommended to assess for stability. No substantial intrathoracic adenopathy is identified. A/P: Several subcentimeter retroperitoneal lymph nodes are identified, none of which appear pathologically enlarged. Given the patient's history, correlation with a follow-up study to assess for stability is recommended. Postoperative changes involving the abdomen and pelvis as above. Updated Visit, August 19, 2023: Virtual Visit Doing ok - seeing endocrine and possibly working up pituitary defect. Will keep GI with Dr. Booker and also see me in October as scheduled. Updated Visit, July 27, 2023: Virtual Visit Abdominal swelling and pain - heat makes it worse Try a simple diet. CT chest improving. Will recheck CT CAP in 3 months just before she returns. Message Dr. Booker to see sooner than September 22 Obtain records from most recent [facility] hospitalization. (Last month) Updated Visit, May 05, 2023: Hank returns today for follow up and to review her imaging. Reports doing well lately with the holidays, other than (more content not included)...[facility]04-12-2024 Instructions* Patient Instructions* Sandra Gage MD - 08/19/2023 11:22 AM EDT We will proceed with a dexamethasone suppression test to further investigate the high cortisol level. Directions for dexamethasone suppression test: 1. Take dexamethasone 1-mg tab by mouth at 11 PM the evening before your test. 2. Go to the lab the next morning and have your blood drawn at ~8 AM. *Do not eat or drink anythingother than water from the time you take dexamethasone to the time you get your blood drawn. 3. If either of the following situations happen, DO NOT HAVE YOUR BLOOD DRAWN: A. You forget to take the pill at 11 PM the evening before B. You cannot get your blood drawn the next morning at ~8 AM C. If either situation happens, please call me to let me know documented in this encounterC[facility] Clinic [facility]04-12-2024 NoteHNO ID: [id number] Author: SANDRA GAGE MD Service: ? 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 She had a tummy tuck in the past, but now she has bloating and central obesity, and reports she does not feel like herself Low appetite No proximal muscle weakness No stretch almaraz No easy bruising On chart review, it is noted she took prednisone x 2, and she reports it was each time for 7 days for pneumonia in December 2022, Mar 2023 On day for prednisone for allergy to contrast for an imaging study She is off of Creon at this time due to bloating PAST MEDICAL HISTORY: PAST MEDICAL HISTORY Diagnosis Date Arthritis Carcinoid tumor of stomach Gall stones GERD (gastroesophageal reflux disease) Hemorrhoids Hyperlipidemia Stomach ulcer UTI (urinary tract infection) PAST SURGICAL HISTORY: PAST SURGICAL HISTORY Procedure Laterality Date ANESTH, SECTION CHOLECYSTECTOMY COLONOSCOPY 03/22/2016 EGD HYSTERECTOMY HX LAP REMOVE/REV MESH BLADDER WALL PAST SURGICAL HISTORY OF 04/2019 breast reconstruction SLEEVE RESECTION STOMACH FAMILY HISTORY: FAMILY HISTORY Problem Relation Age of Onset Diabetes Mother Colon Cancer Mother 55 detected on autopsy Aneurysm Mother 55 aortic Heart disease Father Hyperlipidemia Father Stroke Father Cancer Brother 48 kidney Cancer Brother spinal cord SOCIAL HISTORY: Social History Tobacco Use Smoking status: Former Types: Cigarettes Quit date: 05/2022 Years since quittin.2 Passive exposure: Current Smokeless tobacco: Never Vaping Use Vaping Use: Never used Substance Use Topics Alcohol use: Not Currently Drug use: No MEDICATIONS: Current Outpatient Medications Medication Sig dicyclomine (BENTYL) 20 mg tablet Take 1 tablet by mouth three times a day. (Patient taking differently: Take 20 mg by mouth three times a day. As needed) rosuvastatin (CRESTOR) 40 mg tablet Take 40 mg by mouth daily at bedtime. traZODone (DESYREL) 100 mg tablet Take 100 mg by mouth daily at bedtime. rOPINIRole (REQUIP) 0.25 mg tablet Take 0.5 mg by mouth once daily as needed. L.acid/B.bifidum/B.animal/FOS (PROBIOTIC COMPLEX ORAL) Take by mouth. predniSONE (DELTASONE) 50 mg Take 1 tablet by mouth as directed. Take 1 tablet @ 24H prior, 12H prior, 6H Prior and 1H prior - to CT scan for dye allergy. OMEGA-3 ACID ETHYL ESTERS ORAL Take 2 capsules by mouth. (Patient not taking: Reported on 08/19/2023) valACYclovir (VALTREX) 500 mg tablet 500 mg. No current facility-administered medications for this visit. ALLERGIES: ALLERGIES Allergen Reactions Iodine Hives, Anaphylaxis, Shortness of Breath Other reaction(s): anaphylaxis Other reaction(s): Unknown Atorvastatin Other: See Comments Other Reaction(s): arthralgia/myalgia Bupropion Other: See Comments Other Reaction(s): Other: See Comments Iodinated Contrast * Hives, Other: See Comments, Shortness of Breath Other reaction(s): Difficulty Breathing Other Reaction(s): Difficulty Breathing, Other: See Comments Other reaction(s): Difficulty Breathing Mirtazapine Hives, Other: See Comments Nalbuphine Shortness of Breath, Other: See Comments, Myalgia Other Reaction(s): muscle spams, and breathing, Unknown Nubain [Nalbuphine * Unknown REVIEW OF SYSTEMS: As per HPI PHYSICAL EXAM: BP 118/70 Pulse 67 Temp 37.1 ?C (98.8 ?F) (Temporal Artery) Ht 157.5 cm (5' 2 ) Wt 91.4 kg (201 lb 9.6 oz) SpO2 97% BMI 36.87 kg/m? Body mass index is 36.87 kg/m?. General Appearance: Well appearing, alert, in no acute distress, well-hydrated, obese body habitus Skin: Skin color, texture, turgor normal, no suspicious rashes or lesions. Eyes: Anicteric sclera. Extraocular movements are intact. Neck: Supple, no adenopathy; thyroid symmetric, n (more content not included)... [facility]04-12-2024 History of Present illness Narrative* Sandra Gage MD - 08/19/2023 10:59 AM EDT [facility] Initial Clinic Visit Note Consulted by: Naty Booker Jr., DO (GI) Chief Complaint: Weight gain, 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 HPI: This is a 53 year old female who presents with concerns of bloating, weight gain, and was recommended by her [employer]visor [employer] to see Endocrinology for evaluation of Detroit's syndrome PMH: Hx of Gastric carcinoma, Hx of duodenal carcinoid tumor She reports she lost 48 lbs in 9 weeks weight for participating in a contest and won the contest- the weight loss was helped by exercising 3 to 4 times a day, 1200 mihir day, 81204 steps a day About 2 months after the contest, she started feeling unwell, and tired- and has been for 8 months She is eating 800-1000 mihir a day, and has gotten rid of all condiments, low salt, low carb diet despite which she had a weight gain of 40 lbs in 2 months She has a hx of sleep apnea but reports using CPAP daily, without feeling rested. She had a tummy tuck in the past, but now she has bloating and central obesity, and reports she does not feel like herself Low appetite No proximal muscle weakness No stretch almaraz No easy bruising On chart review, it is noted she took prednisone x 2, and she reports it was each time for 7 days for pneumonia in December 2022, Mar 2023 On day for prednisone for allergy to contrast for an imaging study She is off of Creon at this time due to bloating PAST MEDICAL HISTORY: PAST MEDICAL HISTORY Diagnosis Date Arthritis Carcinoid tumor of stomach Gall stones GERD (gastroesophageal reflux disease) Hemorrhoids Hyperlipidemia Stomach ulcer UTI (urinary tract infection) PAST SURGICAL HISTORY: PAST SURGICAL HISTORY Procedure Laterality Date ANESTH, SECTION CHOLECYSTECTOMY COLONOSCOPY 03/22/2016 EGD HYSTERECTOMY HX LAP REMOVE/REV MESH BLADDER WALL PAST SURGICAL HISTORY OF 04/2019 breast reconstruction SLEEVE RESECTION STOMACH FAMILY HISTORY: FAMILY HISTORY Problem Relation Age of Onset Diabetes Mother Colon Cancer Mother 55 detected on autopsy Aneurysm Mother 55 aortic Heart disease Father Hyperlipidemia Father Stroke Father Cancer Brother 48 kidney Cancer Brother spinal cord SOCIAL HISTORY: Social History Tobacco Use Smoking status: Former Types: Cigarettes Quit date: 05/2022 Years since quittin.2 Passive exposure: Current Smokeless tobacco: Never Vaping Use Vaping Use: Never used Substance Use Topics Alcohol use: Not Currently Drug use: No MEDICATIONS: Current Outpatient Medications Medication Sig dicyclomine (BENTYL) 20 mg tablet Take 1 tablet by mouth three times a day. (Patient taking differently: Take 20 mg by mouth three times a day. As needed) rosuvastatin (CRESTOR) 40 mg tablet Take 40 mg by mouth daily at bedtime. traZODone (DESYREL) 100 mg tablet Take 100 mg by mouth daily at bedtime. rOPINIRole (REQUIP) 0.25 mg tablet Take 0.5 mg by mouth once daily as needed. L.acid/B.bifidum/B.animal/FOS (PROBIOTIC COMPLEX ORAL) Take by mouth. predniSONE (DELTASONE) 50 mg Take 1 tablet by mouth as directed. Take 1 tablet @ 24H prior, 12H prior, 6H Prior and 1H prior - to CT scan for dye allergy. OMEGA-3 ACID ETHYL ESTERS ORAL Take 2 capsules by mouth. (Patient not taking: Reported on 08/19/2023) valACYclovir (VALTREX) 500 mg tablet 500 mg. No current facility-administered medications for this visit. ALLERGIES: ALLERGIES Allergen Reactions Iodine Hives, Anaphylaxis, Shortness of Breath Other reaction(s): anaphylaxis Other reaction(s): Unknown Atorvastatin Other: See Comments Other Reaction(s): arthralgia/myalgia Bupropion Other: See Comments Other Reaction(s): Other: See Comments Iodinated Contrast * Hives, Other: See Comments, Shortness of Breath Other reaction(s): Difficulty Breathing Other Reaction(s): Difficulty Breathing, Other: See Comments Other reaction(s): Difficulty Breathing Mirtazapine Hives, Other: See Comments Nalbuphine Shortness of Breath, Other: See Comments, Myalgia Other Reaction(s): muscle spams, and breathing, Unknown Nubain [Nalbuphine * Unknown REVIEW OF SYSTEMS: As per HPI PHYSICAL EXAM: BP 118/70 Pulse 67 Temp 37.1 C (98.8 F) (Temporal Artery) Ht 157.5 cm (5' 2 ) Wt 91.4 kg (201 lb 9.6 oz) SpO2 97% BMI 36.87 kg/m Body mass index is 36.87 kg/m . General Appearance: Well appearing, alert, in no acute distress, well-hydrated, obese body habitus Skin: Skin color, texture, turgor normal, no suspicious rashes or lesions. Eyes: Anicteric sclera. Extraocular movements are intact. Neck: Supple, no adenopathy; thyroid symmetric, normal size, no palpable nodules Lungs: unlabored breathing Heart: RRR Abdomen: soft non tender Extremities: No deformities, edema, skin discoloration, tattoos on arms, no tremors Musculoskeletal: No joint swelling, deformity, or tenderness. Peripheral Pulses: Normal. Neurologic: Gait normal. Reflexes normal and symmetric. LAB: TSH (mIU/L) Date Value 05/10/2023 1.690 Latest Ref Rng 08/15/2023 WBC 3.70 - 11.00 k/uL 4.79 RBC 3.90 - 5.20 m/uL 4.65 Hemoglobin 11.5 - 15.5 g/dL 13.1 Hematocrit 36.0 - 46.0 % 39.2 MCV 80.0 - 100.0 fL 84.3 MCH 26.0 - 34.0 pg 28.2 MCHC 30.5 - 36.0 g/dL 33.4 RDW-CV 11.5 - 15.0 % 13.7 Platelet Count 150 - 400 k/uL 240 MPV 9.0 - 12.7 fL 9.4 Neut% % 39.4 Abs Neut (ANC) 1.45 - 7.50 k/uL 1.89 Lymph% % 44.5 Abs Lymph 1.00 - 4.00 k/uL 2.13 [place]% % 9.6 Abs [place] <0.87 k/uL 0.46 Eosin% % 5.0 Abs Eosin <0.46 k/uL 0.24 Baso% % 1.3 Abs Baso <0.11 k/uL 0.06 Immature Gran % % 0.2 IMMATURE GRANS (ABS) <0.10 k/uL <0.03 NRBC /100 WBC 0.0 Absolute nRBC <0.01 k/uL <0.01 DTYPE Auto Protein, Total 6.3 - 8.0 g/dL 7.2 Albumin 3.9 - 4.9 g/dL 4.7 Calcium 8.5 - 10.2 mg/dL 10.2 Bilirubin, Total 0.2 - 1.3 mg/dL 0.3 Alkaline Phosphatase 34 - 123 U/L 54 AST 13 - 35 U/L 39 (H) ALT 7 - 38 U/L 24 Glucose 74 - 99 mg/dL 111 (H) BUN 7 - 21 mg/dL 11 Creatinine 0.58 - 0.96 mg/dL 0.77 Sodium 136 - 144 mmol/L 143 Potassium 3.7 - 5.1 mmol/L 4.6 Chloride 97 - 105 mmol/L 107 (H) CO2 22 - 30 mmol/L 25 Anion Gap 9 - 18 mmol/L 11 eGFR >=60 mL/min/1.73m 91 Chromogranin A <187.0 ng/mL 36.5 Serotonin Serum 50 - 220 ng/mL 89 Gastrin <115.0 pg/mL 19.4 VIP 0 - 60 pg/mL <13 Legend: (H) High ASSESSMENT : 53 year old female who is presenting for abnormal weight gain and bloating, and was referred by herhematologist for evaluation of possible Katy's syndrome PLAN: 1. Abdominal bloating 2. Fatigue 3. Weight gain She does not have any classical signs of Katy's syndrome on examination but due to symptoms, I discussed checking for excess cortisol Instructions for 1-mg DST given Based on labs, reviewed if positive, further testing and imaging to locate source. CT abdomen done shows no adenomas in adrenals FOLLOW UP: 4 weeks I spent a total of 60 minutes on the date of the service which included preparing to see the patient, [id number] patient care, completing clinical documentation, obtaining and/or reviewing separately obtained history, performing a medically appropriate examination, counseling and educating the pat ient/family/caregiver, ordering medications, tests, or procedures, and independently interpreting results (not separately reported). Sandra Gage MD Endocrinology Associate Staff [facility] Endocrinology and Metabolism [place] [phone] documented in this encounterCleveland Clinic [facility]04-04-[facility]24 Miscellaneous Notes* Telephone Encounter - Karla Shoemaker RN - 08/11/2023 12:50 PM EDT Pt aware of Tia's message. She stated Dr Booker suggested I be tested for Katy's disease. Pt sees spark tester 08/22/23 and will discuss with them. Will notify our office of any needs. Karla Shoemaker RN * Telephone Encounter - Annemarie Judd MD - 08/11/2023 12:24 PM EDT Hi Mona - PET was completely negative for uptake - her symptoms really have to be related to gastroenterology. * Telephone Encounter - Karla Shoemaker RN - 08/11/2023 9:43 AM EDT BRM: can you review her PET and advise? Pt called again very anxious about results Karla Shoemaker RN * Telephone Encounter - Karla Shoemaker RN - 08/10/2023 3:47 PM EDT Pt requesting results of PET. She reviewed on and is concerned about some wording? Tia: Please review and advise Karla Shoemaker RN documented in this encounterCleveland Clinic [facility]04-03-[facility] History of Present illness Narrative* Jw Esquivel, RT(R) - 08/10/2023 7:30 AM EDT RADIOLOGY SERVICE PROGRESS NOTE SERVICE DATE: 08/10/2023 SERVICE TIME: 7:29 AM PATIENT IDENTITY VERIFICATION COMPLETED USING TWO (2) STANDARD IDENTIFIERS: Name and Date of confirmed by patient verbally FALL SCREENING: Has the patient had 2 falls in the last year or 1 fall with injury or currently using an Ambulatory Assistive Device (Walker, Cane, Wheelchair, Crutches, etc.)? No PATIENT GENDER DATA: .female : No ALLERGIES: Reviewed and unchanged MEDICATIONS REVIEWED: No PATIENT RELEVANT IMPLANT DATA REVIEWED: Not Applicable PATIENT PRESENTS WITH AN IMPLANTABLE OR ATTACHED GILL BOX FIXER: No CREATININE: Creatinine Date Value Ref Range Status 03/14/2023 0.72 0.58 - 0.96 mg/dL Final 09/13/2022 0.72 0.58 - 0.96 mg/dL Final 02/11/2022 0.64 0.58 - 0.96 mg/dL Final Estimated Glomerular Filtration Rate Date Value Ref Range Status 03/14/2023 100 >=60 mL/min/1.73m Final Comment: Estimated Glomerular Filtration Rate (eGFR) is calculated using the 2020 CKD-EPI creatinine equation. This equation utilizes serum creatinine, sex, and age as parameters. The creatinine assay has traceable calibration to isotope dilution- mass spectrometry. Refer to KDIGO guidelines for clinical interpretation. In patients with unstable renal function, e.g. those with acute kidney injury, the eGFRmay not accurately reflect actual GFR. eGFR- Date Value Ref Range Status 06/25/2021 >60 Final P.O.C.T. RESULTS: N/A August 10, [address] PERFORMED: No IV SITE: Ambulatory: A peripheral IV was started in the Left antecubital site with a Angio cath: 24gauge. POST EXAM PIV STATUS: Discontinued PROCEDURE TYPE: NM INJECT: DOTATATE PET. 6.0 mCi [id number]. No other medications given.. ADMINISTRATION TIME: 721 PATIENT DISCHARGED TO: Ambulatory patient, left [place] department area. A Diagnostic radioactive procedure has taken place, with no further precautions necessary other than routine body substance precautions. More information regarding radiation safety can be found usingthis link: [email or web address]%[email or web address] SIGNATURE: LEONARD Victoria) PATIENT NAME: Hank Liu DATE: August 10, 2023 TIME: 7:29 AM PAGER/CONTACT #: documented in this encounterCleveland Clinic [facility]04-03-2024 NoteHNO ID: [id number] Author: JW ESQUIVEL RT(R) Service: Nuclear Medicine Author Type: Technologist Type: Progress Notes Filed: 08/10/2023 07:30 Note Text: RADIOLOGY SERVICE PROGRESS NOTE SERVICE DATE: 08/10/2023 SERVICE TIME: 7:29 AM PATIENT IDENTITY VERIFICATION COMPLETED USING TWO (2) STANDARD IDENTIFIERS: Name and Date of confirmed by patient verbally FALL SCREENING: Has the patient had 2 falls in the last year or 1 fall with injury or currently using an Ambulatory Assistive Device (Walker, Cane, Wheelchair, Crutches, etc.)? No PATIENT GENDER DATA: .female : No ALLERGIES: Reviewed and unchanged MEDICATIONS REVIEWED: No PATIENT RELEVANT IMPLANT DATA REVIEWED: Not Applicable PATIENT PRESENTS WITH AN IMPLANTABLE OR ATTACHED GILL BOX FIXER: No CREATININE: Creatinine Date Value Ref Range Status 03/14/2023 0.72 0.58 - 0.96 mg/dL Final 09/13/2022 0.72 0.58 - 0.96 mg/dL Final 02/11/2022 0.64 0.58 - 0.96 mg/dL Final Estimated Glomerular Filtration Rate Date Value Ref Range Status 03/14/2023 100 >=60 mL/min/1.73m? Final Comment: Estimated Glomerular Filtration Rate (eGFR) is calculated using the 2020 CKD-EPI creatinine equation. This equation utilizes serum creatinine, sex, and age as parameters. The creatinine assay has traceable calibration to isotope dilution-mass spectrometry. Refer to KDIGO guidelines for clinical interpretation. In patients with unstable renal function, e.g. those with acute kidney injury, the eGFR may not accurately reflect actual GFR. eGFR- Date Value Ref Range Status 06/25/2021 >60 Final P.O.C.T. RESULTS: N/A August 10, [address] PERFORMED: No IV SITE: Ambulatory: A peripheral IV was started in the Left antecubital site with a Angio cath: 24 gauge. POST EXAM PIV STATUS: Discontinued PROCEDURE TYPE: NM INJECT: DOTATATE PET. 6.0 mCi [id number]. No other medications given.. ADMINISTRATION TIME: 721 PATIENT DISCHARGED TO: Ambulatory patient, left [place] department area. A Diagnostic radioactive procedure has taken place, with no further precautions necessary other than routine body substance precautions. More information regarding radiation safety can be found using this link: [email or web address] 20Diagnostic%20Nuclear%20Medicine%[email or web address] SIGNATURE: Jw Esquivel, RT(R) PATIENT NAME: Hank Liu DATE: August 10, 2023 TIME: 7:29 AM PAGER/CONTACT #:[facility]03-29-2024 NoteHNO ID: [id number] Author: NATY BOOKER JR, DO Service: ? Author Type: Physician Type: Progress Notes Filed: 08/05/2023 15:26 Note Text: Patient presents with: Abdominal Pain HPI: Hank Liu, 53 year old female, with history of carcinoid of the stomach / duodenum, gastric cancer, peptic ulcer disease, exocrine pancreatic insufficiency presenting with generalized bloating and abd pain and bloating. Denies vomiting, constipation, and diarrhea. She certainly has abd bloating but appears to have entire body swelling. Significant weight gain. She denies recent steroids. Associated intermittent abd cramping. Food makes symptoms worse. She is scheduled next week at [facility] for special nuclear scans (Dotatate PET/CT) by oncology given her history. She remains on Nexium, Creon, and Bentyl. Failed Carafate, Levbid. EGD and colonoscopy done in December. Negative for malignancy, h.pylori, and recurrence of gastric cancer and carcinoid. Family history of colon cancer (mother). TSH, gastrin, urine studies for 5-HIAA, and celiac were negative. Past GI workup 07/27/23 OV notes per Annemarie Judd MD Currently in surveillance. Has chronic diarrhea. Octrescan 10/24/17 did not identify recurrent or metastatic disease. Elevating chromogranin A in November 2018 prompted additional workup. Thyroid nodule resolved. Continues to have significant abdominal pain and bloating despite increase in Creon. Will ask GI to see and in meanwhile obtain Dotatate imaging. Continue CREON more regularly. Dotatate PET/CT with Chromogranin A, serotonin, VIP, Gastrin, CBC, CMP Please obtain in next 4 weeks. RTC after to review. Anticipate CT Chest with CT Liver pelvis + labs in 4 months Labs same day. Include chromogranin A. RTC after to review Will Discuss symptoms with Dr. Booker to see if he can evaluate sooner. 05/10/[address] last [address] notes per Dr. Booker as follows: 52 y/o female with ongoing bloating, abd pain, and fatigue. Imaging and endoscopic evaluation has been negative for recurrence of carcinoid. Etiology for her symptoms is not entirely clear. At this time will check labs, followup imaging already ordered, start amitriptyline for symptoms. Followup in 8 to 12 wks. 04/19/23 CT ABD/PEL W IVCON 1. Stable CT examination of the abdomen and pelvis. No substantial intra-abdominal or pelvic lymphadenopathy is appreciated. 2. Incidental note is again made of right-sided nonobstructive nephrolithiasis. 3. Newly apparent right lower lobe airspace opacities, likely infectious/inflammatory in nature, correlation with follow-up examinations is recommended to assess for clearing. 12/29/22 EGD/colonoscopy were done for Upper abdominal pain, Dyspepsia, Heartburn, Esophageal reflux, histor of gastric carcinoma, Diarrhea, Rectal bleeding per Naty Booker Jr, DO Normal esophagus. Z-line regular, 35 cm from the incisors. Gastritis. Biopsied. Normal examined duodenum The examined portion of the ileum was normal. Diverticulosis in the sigmoid colon. Normal mucosa in the entire examined colon. Internal hemorrhoids. Path as follows: A. Antrum, biopsy: -Minimal chronic inactive gastritis and reactive change in antral mucosa. -Oxyntic mucosa with mild PPI effect. -Negative for intestinal metaplasia or dysplasia. -No H. pylori on routine stain. B. Random colon, biopsy: -Colonic mucosa with no diagnostic abnormality. -No evidence of lymphocytic or collagenous colitis. 07/14/22 path from EGD as follows: Gastric antrum, biopsy: Chronic inactive gastritis. negative for Helicobacter pylori organisms. 07/22/22 distance health visit notes per Dr. Pritchard --History of carcinoid tumor of stomach, resection in 2011 --EGD in 02/2022 with gastric ulcer had partial symptomatic response to PPI BID --Takes esomeprazole twice daily since February - helps 50-60% recommend repeat EGD to ensure resolution with PPI BID Last labs as follows: Component Ref Range AND Units 2 mo ago [facility] IGA SERPL-[facility] 70 - 400 mg/dL 233 Latest Ref Rng 05/04/2018 08/10/2018 10/27/2018 5 HIAA, 24 Hr Urine 0.0 - 8.0 mg/24hrs 8.5 (H) 7.4 6.4 Latest Ref Rng 07/23/2020 06/25/2021 09/13/2022 03/14/2023 Chromogranin A <187.0 ng/mL 76 85 63 53.0 Latest Ref Rng 09/13/2022 Gastrin <115.0 pg/mL 35.6 Latest Ref Rng 05/10/2023 Transglutaminase IgA Abs <4 U/mL <2 Transglutaminase IgA Abs Interpretation Negative Negative Interpretation (Celiac Screen) No serological evidence of celiac disease, however, if celiac disease is clinically suspected and patient is not on gluten-free diet, histological diagnosis may be considered. HLA testing may help with risk assessment. Gliadin Ab, IgA <20 Units 4 Gliad Deamidated IgA Qual Negative, Test not Indicated Negative IgA 70 - 400 mg/dL 233 Latest Ref Rng 03/14/2023 05/10/2023 WBC 3.70 - 11.00 k/uL 5.97 RBC 3.90 - 5.20 m/uL 4.51 Hemoglobin 11.5 - 15.5 g/dL 12.7 Hematocrit 36.0 - 46.0 % 38.4 MCV (more content not included)...[facility]03-25-2024 Miscellaneous Notes* Telephone Encounter - Heather Bey RN - 08/01/2023 11:48 AM EDT Please add on for office visit TuesdayAugust 04. Naty Booker Jr., DO Please schedule per Dr. Booker's note above Josey Bey RN documented in this encounterC[facility] Clinic [facility]03-25-2024 Miscellaneous Notes* Telephone Encounter - Karla Shoemaker RN - 08/01/2023 9:23 AM EDT Images from the original note were not included. Annemarie Judd MD [facility] Clerical Pool; [facility] Triage Pool; Hykes, Naty L Jr., DO Please notify patient of dotatate PET/CT and labs - I did not mention to her but though of after. Will Discuss symptoms with Dr. Booker to see if he can evaluate sooner. Rosendo - just wanted to let you know that she is having worsening pain and bloating - imaging so far is negative. Here's what I recommended to her - aside from thinking of the PET/CT. Maybe you can see her sooner? 1. Continue CREON more regularly. 2. Dotatate PET/CT with Chromogranin A, serotonin, VIP, Gastrin, CBC, CMP a. Please obtain in next 4 weeks. b. RTC after to review. 3. Anticipate CT Chest with CT Liver pelvis + labs in 4 months a. Labs same day. Include chromogranin A. b. RTC after to review Gris Ruff began process for PET at ; will watch for PET to be scheduled to for follow up with Tia to review. I called and discussed all above with pt. She is agreeable to plan of care. will call to schedule and she will ask if labs can be obtained same day. If not, she will come to [place] office to have completed, prior to follow up with Tia. Karla Shoemaker RN documented in this encounterCleveland Clinic [facility]03-23-2024 Instructions* Patient Instructions* Annemarie Judd MD - 07/30/2023 12:48 PM EDT Continue CREON more regularly. Dotatate PET/CT with Chromogranin A, serotonin, VIP, Gastrin, CBC, CMP Please obtain in next 4 weeks. RTC after to review. Anticipate CT Chest with CT Liver pelvis + labs in 4 months Labs same day. Include chromogranin A. RTC after to review documented in this encounterC[facility] Clinic [facility]03-20-2024 History of Present illness Narrative* Annemarie Judd MD - 07/27/2023 4:30 PM EDT Images from the original note were not included. NAME: Hank Liu CLINIC NO.: [id number] DATE OF SERVICE: July 27, 2023 (Benjamín) Some elements in this clinic note that are critical to medical decision making have been carefully reviewed and included from a prior clinic note dated: May 05, 2023 (Benjamín) Additional Clinicians involved in Hank Liu's care: Trey Brown, DO VIRTUAL VISIT PROGRESS NOTE This is a virtual visit using [employer] Break Out Worker Video Call. It required patient- provider interaction for the medical decision making as documented below. I have communicated my name and active licensure. The patient's identity and physical location wereverified at the time of this visit. Either the patient or their legal sales training representative has been informed of the risks and benefits of -- and alternatives to -- treatment through a remote evaluation andconsents to proceed with the evaluation remotely. ASSESSMENT: History of carcinoid of the upper GI tract. Resected in 2011 without adjuvant therapy. We don't have all the records and she is not clear on the details. Currently in surveillance. Has chronic diarrhea. Octrescan 10/24/17 did not identify recurrent or metastatic disease. Elevating chromogranin A in November 2018 prompted additional workup. Thyroid nodule resolved. Continues to have significant abdominal pain and bloating despite increase in Creon. Will ask GI tosee and in meanwhile obtain Dotatate imaging. PLAN: Continue CREON more regularly. Dotatate PET/CT with Chromogranin A, serotonin, VIP, Gastrin, CBC, CMP Please obtain in next 4 weeks. RTC after to review. Anticipate CT Chest with CT Liver pelvis + labs in 4 months Labs same day. Include chromogranin A. RTC after to review Will Discuss symptoms with Dr. Booker to see if he can evaluate sooner. HPI: Case History: 07/20/2023 - CT Chest: Patchy opacities and reticulonodular opacities in right lower lobe, most likely infectious/inflammatory in etiology, decreased since 05/05/23. Consider follow- up to complete resolution. No evidence of new intrathoracic abnormalities since 05/05/23. 06/30/2023 - US Thyroid: 5 mm thyroid nodule 06/10/2023 - Screening Mammogram: BIRADS 1 - Negative 04/19/2023 - CT A/P: Stable CT examination of the abdomen and pelvis. No substantial intra-abdominal or pelvic lymphadenopathy is appreciated. Incidental note is again made of right-sided nonobstructive nephrolithiasis. Newly apparent right lower lobe airspace opacities, likely infectious/inflammatory in nature, correlation with follow-up examinations is recommended to assess for clearing. 07/06/2021 - CT A/P: No acute abdominal or pelvic abnormality. Mild biliary dilatation, likely physiologic and related to cholecystectomy. Right nephrolithiasis. 06/12/2019 - CT CAP: Chest: Stable CT of the chest. Unchanged appearance of right lower lobe nodular opacities measuringup to 5 mm. No new or enlarging nodules are seen. No evidence of bulky intrathoracic adenopathy. A/P: Overall stable CT of the abdomen and pelvis. No gross gastric mass is visualized. No evidence of bulky retroperitoneal or mesenteric adenopathy. Nonobstructing 1-2 mm calculi in the right kidney. Mild urothelial thickening involving the proximal right ureter, nonspecific. This may be infectious or inflammatory in nature. Alternatively, this could also be due to a recently passed calculus. Correlate clinically. 11/30/2018 - CT CAP: Chest: Several subcentimeter right-sided pulmonary nodules are identified, largest measuring 4-5 mm. The patient's history, correlation with follow-up examination in 3-6 months is recommended to assess for stability. No substantial intrathoracic adenopathy is identified. A/P: Several subcentimeter retroperitoneal lymph nodes are identified, none of which appear pathologically enlarged. Given the patient's history, correlation with a follow-up study to assess for stability is recommended. Postoperative changes involving the abdomen and pelvis as above. Updated Visit, July 27, 2023: Virtual Visit Abdominal swelling and pain - heat makes it worse Try a simple diet. CT chest improving. Will recheck CT CAP in 3 months just before she returns. Message Dr. Booker to see sooner than September 22 Obtain records from most recent [facility] hospitalization. (Last month) Updated Visit, May 05, 2023: Hank returns today for follow up and to review her imaging. Reports doing well lately with the holidays, other than having pneumonia a couple weeks ago. Was dx with pneumonia in the right lung, but notes she has pain with a deep breath on the left side. She has been doing okay with the diarrhea, has been taking her Creon regularly. Does note has not really been taking much of anything the past few weeks since she has been feeling sick. She reports began experiencing chest pain that felt like her breast was bruised. Also has had pain under her rib cage that was a similar feeling. Updated Visit, March 14, 2023: Hank returns today for follow up, doing well since last visit. She has seen the ENT (Dr. Mann), and he told her that the thyroid nodule she was thought to have turned out not to be there. Reports being told of diverticulitis when she saw GI (Dr. Booker). She has not used the Creon for about 2 months because it wasn't making her feel great. She reports having some R sided pain recently. Also notes she was told a few months ago that she was at higher risk for a stroke due to her elevated lipids, has since started on a statin. Reviewed today's lab results. Updated Visit, September 13, 2022: Doing well. Losing weight. Enjoying working at [employer]. Eating better. Remains off of Ozempic. Labs reviewed. No clinical evidence of recurrence. Updated Visit, July 16, 2022: Hank presents today with multiple complaints but focusing on reflux pain. She has multiple areas of tenderness at S-C joints and forearms. imaging showed something on right clavicle as well as thyroid nodule Very sore throat - sounds like refulx Started ever since being on ozempic - throws up frequently. - Will have to stop Ozempic. BiRads 5 right thyroid gland nodule 0.4 x 0.4 x 0.4. will need FNA if > 1.0 Updated Visit, February 11, 2022: July 06, 2021 CT Abd / pelvis @ [employer]- right nephrolithiasis otherwise unremarkable. She called in regarding continued abdominal bloating and also bilateral arm pain Sleep apnea - on CPAP for past month - feeling like she's sleeping better Borderline DMII started metformin and then stopped it Will encourage to restart. Take creon more regularly, oncology nutrition consult Exam - abdomen is full, obese. Reproducible pain at multiple points along ribs as well as chest along sternum. Arms ache. Many of her pain issues may be related to her gain in weight in face of her prior abdominoplasty.. Updated Visit, June 25, 2021: She feels intermittent inflammation and discomfort around her rib cage associated with recurring feelings of bloating Had COVID in May - now the swellling in her abdomen is intensifying although it was occurring prior to COVID. Work at [employer] and after a long day she has the most symptoms Palpitations for quite some time - now has an implanted loop recorder. Has a lower abdominal ventral hernia that is palpable on exam today. Updated Visit, July 25, 2020: Hank is 50 yo and ad a history of resected carcinoid but was complaining of persisting abdominal pain. Ct scan was obtained and reviewed with her. No evidence of recurrence was noted. Her chromogranin was not elevated. She still has pain in the sides of her ribs for an unknown etiology, but felt mu sculoskelatal in nature. She had no other complaints and was relieved to know her scans were clear.Abdominal pain comes and goes and as mostly resolved. However, she has a kidney stone that has grown but is non-obstructing. Updated Visit, June 30, 2020: Stomach is keeping her up. She had recent scans in [facility]. We will discover these and call her next week to determine further testing. She has had no evidence of recurrence for at least 8 years following her resection. Updated Visit, January 07, 2020: Hank is 49 years old and returns in follow-up as a patient in transition from her previous oncologist. She reports that a couple of months ago was feeling progressively fatigued and weak she describes a sensation where she gets a vibration in the top of her head. This is currently being worked up by the vascular physicians. She was working at [employer] but now is in the [place] because she was not able to keep up with the heavy lifting. She tries to be very active and has been having trouble with fatigue. She is asymptomatic from a carcinoid perspective. It appears that she is quite overwhelmed with physician work-up and office visits at this time and I suggested that, since she has been completely asymptomatic for almost 8 years since her resection that we can decrease the amount of visits as well as avoid additionalsurveillance CT scans or laboratories. Patient's disease was originally identified in 2011 and underwent resection fully following. She used to have symptoms of diarrhea related to carcinoid but has been asymptomatic. Her chromogranin A has been unreliable with respect to disease follow-up. She has had multiple scans that show no evidence of recurrent disease. Prior Hx: December 07, 2018 (Dr. Mena) Still extreme tired all the time. [facility] and colonoscopy was ok with dr. Booker. dont have colonoscopy results of biopsy from [facility] but patient was told negative. Headaches same. Had eeg. Follows with Dr. Hall. MRI brain was normal. ECOG PERFORMANCE STATUS: 1 PHYSICAL EXAMINATION: Vitals: There were no vitals taken for this visit. There is no height or weight on file to calculate BSA. No exam ALLERGIES: ALLERGIES Allergen Reactions Iodine Hives, Anaphylaxis Other reaction(s): anaphylaxis Other reaction(s): Unknown Atorvastatin Other: See Comments Other Reaction(s): arthralgia/myalgia Bupropion Other: See Comments Iodinated Contrast * Hives, Other: See Comments Other reaction(s): Difficulty Breathing Mirtazapine Hives, Other: See Comments Nalbuphine Shortness of Breath, Other: See Comments, Myalgia Other Reaction(s): muscle spams, and breathing, Unknown Nubain [Nalbuphine * Unknown MEDICATIONS: iv contrast (will be provided with radiology test) CT Chest W -Inject, intravenously, once for 1 dose.No IV access, insert saline lock prior to the beginning of sedation, infusion, injection of imaging exam. Discontinue saline lock post exam. If Pt. has a central line or IVAD, may access for administration according to line specific nursing protocol. Once exam is complete flush line and de-accessaccording to line specific nursing protocol in the CT contrast administration guidelines link. iv contrast (will be provided with radiology test) CT LIVER/PEL Inject, intravenously, once for 1 dose.No IV access, insert saline lock prior to the beginning of sedation, infusion, injection of imaging exam. Discontinue saline lock post exam. If Pt. has a central line or IVAD, may access for administration according to line specific nursing protocol. Once exam is complete flush line and de-access according to line specific nursing protocol in the CT contrast administration guidelines link. predniSONE (DELTASONE) 50 mg Take 1 tablet by mouth as directed. Take 1 tablet @ 24H prior, 12H prior, 6H Prior and 1H prior - to CT scan for dye allergy. dicyclomine (BENTYL) 10 mg capsule Take 1 capsule by mouth 4 times a day as needed for abdominal pain or cramps rosuvastatin (CRESTOR) 40 mg tablet Take 40 mg by mouth daily at bedtime. traZODone (DESYREL) 100 mg tablet Take 100 mg by mouth daily at bedtime. OMEGA-3 ACID ETHYL ESTERS ORAL Take 2 capsules by mouth. amitriptyline (ELAVIL) 25 mg tablet Take 1 tablet by mouth daily at bedtime. pxbjdm-ndhenqyj-oauimty (CREON) 36,000-114,000- 180,000 unit delayed release capsule Take 1 capsuleby mouth four times daily. rOPINIRole (REQUIP) 0.25 mg tablet Take 0.5 mg by mouth once daily as needed. L.acid/B.bifidum/B.animal/FOS (PROBIOTIC COMPLEX ORAL) Take by mouth. valACYclovir (VALTREX) 500 mg tablet 500 mg. LABORATORY VALUES: WBC (k/uL) Date Value 03/14/2023 5.97 RBC (m/uL) Date Value 03/14/2023 4.51 Hemoglobin (g/dL) Date Value 03/14/2023 12.7 Hematocrit (%) Date Value 03/14/2023 38.4 MCV (fL) Date Value 03/14/2023 85.1 MCH (pg) Date Value 03/14/2023 28.2 MCHC (g/dL) Date Value 03/14/2023 33.1 RDW-CV (%) Date Value 03/14/2023 13.2 Platelet Count (k/uL) Date Value 03/14/2023 247 MPV (fL) Date Value 03/14/2023 9.2 Glucose (mg/dL) Date Value 03/14/2023 103 (H) BUN (mg/dL) Date Value 03/14/2023 12 Creatinine (mg/dL) Date Value 03/14/2023 0.72 Sodium (mmol/L) Date Value 03/14/2023 139 Potassium (mmol/L) Date Value 03/14/2023 4.3 Chloride (mmol/L) Date Value 03/14/2023 102 CO2 (mmol/L) Date Value 03/14/2023 29 Protein, Total (g/dL) Date Value 03/14/2023 7.4 Albumin (g/dL) Date Value 03/14/2023 5.1 (H) Calcium, Total (mg/dL) Date Value 03/14/2023 10.2 Alkaline Phosphatase (U/L) Date Value 03/14/2023 66 Bilirubin, Total (mg/dL) Date Value 03/14/2023 0.3 AST (U/L) Date Value 03/14/2023 25 ALT (U/L) Date Value 03/14/2023 12 DIAGNOSIS: (C7A.010) 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 encounter diagnosis) Plan: CT CHEST W IVCON, iv contrast (will be provided with radiology test), CT LIVER/PELVIS W IVCON, iv contrast (will be provided with radiology test), predniSONE (DELTASONE) 50 mg, NM PET/CT NEUROENDOCRINE WHOLE BODY IMAGING, CHROMOGRANIN A, SEROTONIN BLD, GASTRIN BLD, VIP, CBC + DIFF, COMP METABOLIC PANEL (K86.81) Exocrine pancreatic insufficiency (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) (R91.1) Lung nodule (R14.0) Bloating PAST MEDICAL HISTORY Diagnosis Date Arthritis Carcinoid tumor of stomach Gall stones GERD (gastroesophageal reflux disease) Hemorrhoids Hyperlipidemia Stomach ulcer UTI (urinary tract infection) PAST SURGICAL HISTORY Procedure Laterality Date ANESTH, SECTION CHOLECYSTECTOMY COLONOSCOPY 03/22/2016 EGD HYSTERECTOMY HX LAP REMOVE/REV MESH BLADDER WALL PAST SURGICAL HISTORY OF 04/2019 breast reconstruction SLEEVE RESECTION STOMACH Social History Tobacco Use Smoking status: Former Types: Cigarettes Quit date: 05/2022 Years since quittin.2 Passive exposure: Current Smokeless tobacco: Never Vaping Use Vaping Use: Never used Substance Use Topics Alcohol use: Not Currently Drug use: No FAMILY HISTORY Problem Relation Age of Onset Diabetes Mother Colon Cancer Mother 55 detected on autopsy Aneurysm Mother 55 aortic Heart disease Father Hyperlipidemia Father Stroke Father Cancer Brother 48 kidney Cancer Brother spinal cord I spent a total of 40 minutes on the date of service which included preparing to see the patient, completing clinical documentation, counseling and educating the patient/family/caregiver, ordering medications, tests, or procedures, communicating with other HCPs (not separately reported), independently interpreting results (not separately reported), communicating results to the patient/family/caregiver, and care coordination (not separately reported). nAnemarie Judd MD, CPE Hematology and Oncology Services Provided at: [place], [place] CC: Trey Brown DO [address] [facility] [id number] Naty Booker DO documented in this encounterC[facility]03[facility] History of Present illness Narrative* Campos Molina, RT(R) - 07/20/2023 7:45 AM EDT Radiology Service Progress Note PATIENT NAME: Hank Liu DATE OF SERVICE: July 20, 2023 TIME: 8:25 AM PATIENT IDENTITY VERIFICATION COMPLETED USING TWO (2) IDENTIFIERS: Name and Date of confirmedby patient verbally. FALL SCREENING: Has the patient had 2 falls in the last year or 1 fall with injury or currently using an Ambulatory Assistive Device (Walker, Cane, Wheelchair, Crutches, etc.)? No PATIENT GENDER DATA: Female. status: : No status: NO. PATIENT RELEVANT IMPLANT DATA REVIEWED: Not Applicable PATIENT PRESENTS WITH AN IMPLANTABLE OR ATTACHED GILL BOX FIXER: No RADIOLOGY DEPARTMENT: CT; Exam(s) Completed: Chest PERIPHERAL IV DATA: Not applicable SIGNED BY: RT Lucretia(R) July 20, 2023 8:25 AM documented in this encounterC[facility]02-23-2024 Miscellaneous Notes* Telephone Encounter - Karla Shoemaker RN - 07/01/2023 1:17 PM EST Pt notified of HM message and will attempt to call for referral from PCP. Karla Shoemaker RN * Telephone Encounter - Dhara Vargas APRN.CNP - 07/01/2023 1:11 PM EST Since we only see her every 6 months she needs to contact her PCP. ThanksDhara APRN.CNP * Telephone Encounter - Karla Shoemaker RN - 07/01/2023 11:40 AM EST Pt calls with request for Rheumatology consult. She states I just know something is being overlooked. My abdomen swells, and Dr Booker does not have any answers for me. I call and talk with Dr Brown's office and nothing happens. I am just frustrated, and need answers. Tia/HM: Please review and sign, if agreeable, pended order documented in this encounterC[facility]02-22-[facility] History of Present illness Narrative* Joaquim Mann MD - 06/30/2023 10:26 AM EST HPI Hank Liu is a 53 year old female who presents with check thyroid nodule. Patient is here for recheck of her thyroid nodule. Patient initially had a CT of the chest that showed a nodule ultrasound most recently in December showed no nodules. ROS General Weight loss: No Fatigue: No Night sweats:No Cardiac Chest pain:No Fast heart rate:No Swelling in the feet:No Respiratory Short of breath:No Cough:No Wheezing:No Gastrointestinal Nausea:No Vomiting:No Indigestion:No Past medical history, family history, and social history reviewed. PE There were no vitals taken for this visit. General: Patient is awake, alert, NAD. Voice is normal. Skin: normal Eyes: Extraocular motion and Gaze is normal. Ears: Right external auditory canal is normal. TMJ: normal. Right tympanic membranes normal. Left external auditory canal is normal. Left tympanic membrane normal. Nose: Septum is normal. Turbinates are normal. Nasopharynx:normal Oral Cavity/Oropharynx: Lips normal Dentition normal Tongue normal. Tonsils normal. Palate and uvula normal. Pharynx posterior normal Hypopharynx: Base of tongue normal Pyriform sinus normal. Larynx: Vocal cords normal. Epiglottis normal. Post cricoid normal. Salivary glands: Parotid normal. Submandibular and sublingual normal. Thyroid: normal. Lymphatic/Neck: Lymph nodes normal. Neurologic: Facial nerve normal. Ultrasound reviewed ASSESSMENT/PLAN: 1. Thyroid nodule - ICD9: 241.0, ICD10: E04.1 Recommend repeating ultrasound Joaquim Mann MD Findings will be communicated to the referring physician via mail or electronic medical record. documented in this encounterC[facility]02-09-2024 Evaluation note* Encounter Date Diagnosis Assessment Notes Treatment Notes Treatment Clinical Notes 09 Feb, 2024 Obstructive sleep apnea (ICD-10 - G47.33) [employer] Other 02-05-2024 History of Present illness Narrative* Jose Daniel Saray Pham, COMMUTATOR UNDERCUTTER - 06/13/2023 9:30 AM EST Hank Liu is a 53 y.o. female presents with chief complaint of Pt. is here today for [facility] ER follow up (Pt. Was seen in the ER for abdominal distention and Pneumonia. ) HPI: HPI Here for routine follow up from ER. She feels something is off with her body. Feels bloated andabdomen is swollen. She is lost with who can treat her. She follows with Dr. Booker. He did a colonscopy and EGD. She has diverticulosis, not itis HISTORIES: PAST MEDICAL HISTORY: Past Medical History: Diagnosis Date Alcoholism (CMS/HCC) Anxiety Anxiety and depression (CMS/HCC) Arthritis Bronchitis Carcinoid tumor (CMS/HCC) Chicken pox Depression (CMS/HCC) Muscoda's syndrome Esophageal spasm dilatation Family history of cancer Gastroesophageal reflux disease with esophagitis GERD (gastroesophageal reflux disease) Glossopharyngeal neuralgia H/O: hysterectomy History of benign carcinoid tumor of gastrointestinal tract History of medical problems ulcer History of plastic surgery multiple plastic surgeries History of psychiatric care History of smoking quit 3 years Kidney stone 10/11/2022 Kidney stone on right side Lupus (CMS/HCC) Multiple sclerosis (CMS/HCC) Ovarian cyst Plantar fasciitis, bilateral PUD (peptic ulcer disease) Seizure (CMS/HCC) Skin cancer Skin lesion of cheek Stomach tumor (benign) Tonsillitis SURGICAL HISTORY: Past Surgical History: Procedure Laterality Date BELT ABDOMINOPLASTY 05/2018 Jessica Hunt (Dr. Smart) BLADDER SURGERY 2002 bladder mesh BREAST SURGERY Bilateral 05/2018 breast lift. SECTION, LOW TRANSVERSE 1986 COLONOSCOPY 2018 wnl per pt COLONOSCOPY 07/31/[address] GUIDED TRANSVAGINAL TRANSRECTAL FLUID DRAIN 05/22/2020 CT GUIDED TRANSVAGINAL TRANSRECTAL FLUID DRAIN 05/22/2020 EGD 11/22/2018 w/ Bx., stomach polyp w/ DVicente EGD 07/31/2021 Dx Normal GALLBLADDER 1992 HM MAMMOGRAPHY 01/27/[address] Brown HYSTERECTOMY 2000 LOOP RECORDER IMPLANT 12/2020 Heart loop recorder implant PAP SMEAR 01/03/2020 wnl NV CYSTOSCOPY,DIL URETHRAL STRICTURE 08/2019 Urethral dilation TUMOR EXCISION 2012,2013 stomach/duodenum sugery tumor removed (3 surg total) TUMOR REMOVAL 1988 excision left shoulder tumor w/ bone graft SOCIAL HISTORY: Social History Tobacco Use Smoking status: Former Packs/day: 2.00 Years: 35.00 Additional pack years: 0.00 Total pack years: 70.00 Types: Cigarettes Quit date: 2021 Years since quittin.0 Passive exposure: Past Smokeless tobacco: Never Substance Use Topics Alcohol use: Not Currently Comment: caggeine: occasional cup of tea Drug use: Never Depression: Not at risk (10/15/2022) PHQ-2 PHQ-2 Score: 0 FAMILY HISTORY: Family History Problem Relation Name Age of Onset Colon cancer Mother Hyperlipidemia Mother Aneurysm Mother Diabetes Mother Heart disease Father Heart attack Sibling Cervical cancer Sibling Heart disease Sibling No Known Problems Son No Known Problems Son Melanoma Neg Hx MEDICATIONS: Current Outpatient Medications Medication Instructions albuterol HFA 90 mcg/act inhaler 2 puffs, Inhalation, Every 4 hours PRN Creon [id number] units capsule delayed-release particles capsule 1 capsule, Oral, Every 8 hours [id number] ETHYL ESTERS PO 2 capsules, Oral, Every morning Probiotic Product (PROBIOTIC DAILY PO) 1 capsule, Oral, Daily rOPINIRole (Requip) 0.25 MG tablet 2 tablets, Oral, Daily rosuvastatin (CRESTOR) 40 mg, Oral, Nightly traZODone (DESYREL) 100 mg, Oral, Nightly valACYclovir (VALTREX) 500 mg, Oral, Daily ALLERGIES: Allergies Allergen Reactions Iodine Anaphylaxis and Hives Other reaction(s): Unknown Atorvastatin Other Reaction(s): arthralgia/myalgia Mirtazapine Hives Nalbuphine Other Reaction(s): muscle spams, and breathing, Unknown REVIEW OF SYMPTOMS: Review of Systems Constitutional: Negative for fatigue. HENT: Negative for sore throat. Respiratory: Negative for shortness of breath. Gastrointestinal: Positive for abdominal distention, abdominal pain and constipation. Genitourinary: Negative for difficulty urinating. Neurological: Negative for dizziness and light-headedness. Psychiatric/Behavioral: Positive for sleep disturbance. PHYSICAL EXAM: Visit Vitals BP 110/80 Pulse 77 Wt 193 lb SpO2 96% BMI 34.19 kg/m Smoking Status Former BSA 1.97 m Physical Exam Constitutional: General: She is not in acute distress. Appearance: Normal appearance. She is obese. She is not ill-appearing. HENT: Head: Normocephalic. Mouth/Throat: Mouth: Mucous membranes are moist. Eyes: Extraocular Movements: Extraocular movements intact. Neck: Vascular: No carotid bruit. Cardiovascular: Rate and Rhythm: Regular rhythm. Heart sounds: No murmur heard. Pulmonary: Effort: Respiratory distress present. Abdominal: General: Bowel sounds are normal. There is distension. Tenderness: There is no abdominal tenderness. Musculoskeletal: General: Normal range of motion. Cervical back: Neck supple. No tenderness. Lymphadenopathy: Cervical: No cervical adenopathy. Skin: General: Skin is warm and dry. Neurological: Mental Status: She is alert and oriented to person, place, and time. Psychiatric: Mood and Affect: Mood normal. Thought Content: Thought content normal. ASSESSMENT AND PLAN: Assessment/Plan Diagnoses and all orders for this visit: Irritable bowel syndrome with both constipation and diarrhea - dicyclomine (Bentyl) 10 MG capsule; Take 1 capsule (10 mg) by mouth 4 (four) times a day as needed (abdominal pain or cramps) -follow FODMOP diet Bloating - dicyclomine (Bentyl) 10 MG capsule; Take 1 capsule (10 mg) by mouth 4 (four) times a day as needed (abdominal pain or cramps) LPRD (laryngopharyngeal reflux disease) Atherosclerosis of aorta (I70.0) Dictated, but not read Patient presents today for a emergency room follow up after being seen for abdominal pain, bloating, abdominal distention. She did have a CAT scan of her abdomen and pelvis, which did not show any diverticulitis. She does have sigmoid diverticulosis and bilateral renal calculi. Her white count was within normal limits. She did not have a urinary tract infection. Lab results were within normal limits, but she said she has never felt this so bloated in full. She does appear to be distended. She states she is not constipated and has had a bowel movement. She does follow with Dr. Booker at the [facility]. She has Had a colonoscopy and EGD in the past six months. She Had a Hysterectomies and cholecystectomy and states she has had multiple fabrizio surgeries and even removal of a gastric tumor. She most likely has adhesions which are contributing to her fabrizio pain, and she also has IBS. She does take a probiotic, but states she has not taken one since she s been on the antibiotic. I advised her to resume the probiotic, take Beano prior to meals and use Bentyl prior to meals and at bedtime for the abdominal cramping. She is also to follow a fod map diet and she states that she is eating all the wrong stuff after I gave her the hand out. I advised her that she should follow the foodmap diet strictly and hopefully this would decrease her bloating. She needs to follow up with her [place] stroenterologist, but would like a second opinion. I will refer her to Lala Cordoba at the [facility]. She s also having intermittent neurological disorders where she has a strange vibration of her headand she states that she doesn t pass out but she has the sensation that she doesn t know exactly what s going on, but she cannot move her legs. She has had multiple Work ups, including stress, testing, [employer], monitoring, loop, recorder, MRIs and MRIs. She is seeing neurology. At this pointin time I m gonna focus on the irritable bowel syndrome, and she will need to follow up with G.I.. documented in this [facility]12-28-2023 History of Present illness Narrative* Andra Willson, RT(R) - 05/05/2023 8:45 AM EST Radiology Service Progress Note PATIENT NAME: Hank Liu DATE OF SERVICE: May 05, 2023 TIME: 8:52 AM PATIENT IDENTITY VERIFICATION COMPLETED USING TWO (2) IDENTIFIERS: Name and Date of confirmedby patient verbally. FALL SCREENING: Has the patient had 2 falls in the last year or 1 fall with injury or currently using an Ambulatory Assistive Device (Walker, Cane, Wheelchair, Crutches, etc.)? No PATIENT GENDER DATA: Female. status: : No status: NO. PATIENT RELEVANT IMPLANT DATA REVIEWED: Not Applicable RADIOLOGY DEPARTMENT: CT; Exam(s) Completed: Chest PERIPHERAL IV DATA: Not applicable SIGNED BY: RT Enriqueta(R) May 05, 2023 8:52 AM documented in this encounterCleveland [facility]12-14-2023 Miscellaneous Notes* Telephone Encounter - Hillary Morgan - 04/21/2023 1:58 PM EST Spoke to patient & scheduled CT chest WO IV contrast on 05/05/2023@8:45 am & follow up withVIK@9:45 am. Patient ok with waiting in between appointments. Hillary Morgan * Telephone Encounter - Karla Shoemaker RN - 04/21/2023 12:33 PM EST Discussed with Tia. Okay to move CT and follow up to accommodate insurance authorization. Pt is aware and agreeable PSS: Please call to schedule Karla Shoemaker RN * Telephone Encounter - Hillary Morgan - 04/21/2023 12:04 PM EST Due to patient's insurance we have to schedule her CT chest 10-14 days out for prior authorization.Please advise. Hillary Morgan * Telephone Encounter - Karla Shoemaker RN - 04/21/2023 9:42 AM EST Spoke with pt she was seen at Urgent care; [facility] last night. CXR showed white out of my left lung. Dr Ferguson placed pt on Levaquin PO x 7 days. Discussed with Tia. He would like CT chest W/O as ordered to be completed prior to her appt 04/25/23. Pt is aware and will await call for scheduling. Alysia: please obtain records and images PSS: Please schedule Karla Shoemaker RN * Telephone Encounter - Annemarie Judd MD - 04/20/2023 4:38 PM EST Let's get CT of the chest - no contrast and will see her same day please. * Telephone Encounter - Karla Shoemaker RN - 04/20/2023 2:06 PM EST Pt called for CT review. She is concerned with the following finding: Lower Thorax: Newly apparent airspace opacity within the right lower lobe, likely infectious/inflammatory in nature, although, the possibility of metastases cannot be excluded. Pt reports chest heaviness/dull ache for 2 days, worse with deep breaths. No cough, cold or flu like symptoms. Hot and cold, uncertain of fevers. Pt is strongly encouraged to go to local ED for any worsening in symptoms, increased/persistent chest pain, pain that radiates, dizziness/lightheadedness, nausea, diaphoresis, etc to r/o cardiac. Tia: Please advise Karla Shoemaker RN documented in this encounterC[facility] History of Present illness Narrative* Lacie Bonilla RN - 04/19/2023 8:15 AM EST Radiology Service Progress Note DATE OF SERVICE: April 19, 2023 TIME: 8:03 AM PATIENT WEIGHT: 193LBS PATIENT IDENTITY VERIFICATION COMPLETED USING TWO (2) STANDARD IDENTIFIERS: Name and Date of confirmed by patient verbally. FALL SCREENING: Has the patient had 2 falls in the last year or 1 fall with injury or currently using an Ambulatory Assistive Device (Walker, Cane, Wheelchair, Crutches, etc.)? No PATIENT GENDER DATA: Female. status: : No status: NO. ALLERGIES: Reviewed and unchanged CONTRAST ALLERGY: Yes STANDARD PREMEDICATION: Prednisone 50mg Dose 1 taken at 13 hours prior to scan, Dose 2 at 7 hours prior to scan, and Dose 3at 1 hr prior to scan Benadryl 50mg 1 hr prior to scan EXAM: CT -CONTRAST INDUCED NEPHROPATHY RISK FACTORS: CREATININE: Creatinine Date Value Ref Range Status 03/14/2023 0.72 0.58 - 0.96 mg/dL Final 09/13/2022 0.72 0.58 - 0.96 mg/dL Final 02/11/2022 0.64 0.58 - 0.96 mg/dL Final Estimated Glomerular Filtration Rate Date Value Ref Range Status 03/14/2023 100 >=60 mL/min/1.73m Final Comment: Estimated Glomerular Filtration Rate (eGFR) is calculated using the 2020 CKD-EPI creatinine equation. This equation utilizes serum creatinine, sex, and age as parameters. The creatinine assay has traceable calibration to isotope dilution- mass spectrometry. Refer to KDIGO guidelines for clinical interpretation. In patients with unstable renal function, e.g. those with acute kidney injury, the eGFRmay not accurately reflect actual GFR. eGFR- Date Value Ref Range Status 06/25/2021 >60 Final P.O.C.T. RESULTS: POC done: Yes, See Lab Tab April 19, 2023 TREATMENT: No Hydration needed. IV SITE: Ambulatory: A peripheral IV was started in the Left antecubital site with a Angio cath: 20gauge. IV SITE APPEARANCE: Clean,Dry and Intact SIGNATURE: Lacie Bonilla RN PATIENT NAME: Hank Liu DATE: April 19, 2023 TIME: 8:03 AM * Andra Willson, RT(R) - 04/19/2023 8:15 AM EST Radiology Service Progress Note PATIENT NAME: Hank Liu DATE OF SERVICE: April 19, 2023 TIME: 8:15 AM PATIENT IDENTITY VERIFICATION COMPLETED USING TWO (2) IDENTIFIERS: Name and Date of confirmedby patient verbally. FALL SCREENING: Has the patient had 2 falls in the last year or 1 fall with injury or currently using an Ambulatory Assistive Device (Walker, Cane, Wheelchair, Crutches, etc.)? No PATIENT GENDER DATA: Female. status: : No status: NO. PATIENT RELEVANT IMPLANT DATA REVIEWED: Not Applicable RADIOLOGY DEPARTMENT: CT; Exam(s) Completed: Abdomen/Pelvis PERIPHERAL IV DATA: Site assessment: Clean,Dry and Intact, Site disposition Discontinued SIGNED BY: RT Enriqueta(R) April 19, 2023 8:15 AM documented in this encounterC[facility]11-07-[facility] Miscellaneous Notes* Telephone Encounter - Gisell Estes - 03/15/2023 3:47 PM EST Hank called back and changed her mind. She would like to keep her original appointment on 04/04 at8:45am. She is now scheduled for her CT scan once again on 04/04 at 8:45am. Gisell Bah * Telephone Encounter - Gisell Estes - 03/15/2023 3:14 PM EST Patient was delighted with the change. She is now scheduled for her PET scan on 03/23 at 12:45. Gisell Bah documented in this encounterC[facility]11-[facility] History of Present illness Narrative* Annemarie Judd MD - 03/14/2023 1:45 PM EST NAME: Hank Liu [facility] NO.: [id number] DATE OF SERVICE: March 14, 2023 (Benjamín) Some elements in this clinic note that are critical to medical decision making have been carefully reviewed and included from a prior clinic note dated: September 13, 2022 (Benjamín) Additional Clinicians involved in Hank Liu's care: Trey Brown DO ASSESSMENT/PLAN: History of carcinoid of the upper GI tract. Resected in 2011 without adjuvant therapy. We don't have all the records and she is not clear on the details. Currently in surveillance. Has chronic diarrhea. Octrescan 10/24/17 did not identify recurrent or metastatic disease. Elevating chromogranin A in November 2018 prompted additional workup. PLAN: Continue CREON more regularly CT A/P in 1-2 weeks due to ongoing abdominal bloating- RTC 1 week after scan HPI: Updated Visit, March 14, 2023: Hank returns today for follow up, doing well since last visit. She has seen the ENT (Dr. Mann), and he told her that the thyroid nodule she was thought to have turned out not to be there. Reports being told of diverticulitis when she saw GI (Dr. Booker). She has not used the Creon for about 2 months because it wasn't making her feel great. She reports having some R sided pain recently. Also notes she was told a few months ago that she was at higher risk for a stroke due to her elevated lipids, has since started on a statin. Reviewed today's lab results. Updated Visit, September 13, 2022: Doing well. Losing weight. Enjoying working at [employer]. Eating better. Remains off of Ozempic. Labs reviewed. No clinical evidence of recurrence. Updated Visit, July 16, 2022: Hank presents today with multiple complaints but focusing on reflux pain. She has multiple areas of tenderness at S-C joints and forearms. imaging showed something on right clavicle as well as thyroid nodule Very sore throat - sounds like refulx Started ever since being on ozempic - throws up frequently. - Will have to stop Ozempic. BiRads 5 right thyroid gland nodule 0.4 x 0.4 x 0.4. will need FNA if > 1.0 Updated Visit, February 11, 2022: July 06, 2021 CT Abd / pelvis @ [employer]- right nephrolithiasis otherwise unremarkable. She called in regarding continued abdominal bloating and also bilateral arm pain Sleep apnea - on CPAP for past month - feeling like she's sleeping better Borderline DMII started metformin and then stopped it Will encourage to restart. Take creon more regularly, oncology nutrition consult Exam - abdomen is full, obese. Reproducible pain at multiple points along ribs as well as chest along sternum. Arms ache. Many of her pain issues may be related to her gain in weight in face of her prior abdominoplasty.. Updated Visit, June 25, 2021: She feels intermittent inflammation and discomfort around her rib cage associated with recurring feelings of bloating Had COVID in May - now the swellling in her abdomen is intensifying although it was occurring prior to COVID. Work at [employer] and after a long day she has the most symptoms Palpitations for quite some time - now has an implanted loop recorder. Has a lower abdominal ventral hernia that is palpable on exam today. Updated Visit, July 25, 2020: Hank is 50 yo and ad a history of resected carcinoid but was complaining of persisting abdominal pain. Ct scan was obtained and reviewed with her. No evidence of recurrence was noted. Her chromogranin was not elevated. She still has pain in the sides of her ribs for an unknown etiology, but felt mu sculoskelatal in nature. She had no other complaints and was relieved to know her scans were clear.Abdominal pain comes and goes and as mostly resolved. However, she has a kidney stone that has grown but is non-obstructing. Updated Visit, June 30, 2020: Stomach is keeping her up. She had recent scans in [facility]. We will discover these and call her next week to determine further testing. She has had no evidence of recurrence for at least 8 years following her resection. Updated Visit, January 07, 2020: Hakn is 49 years old and returns in follow-up as a patient in transition from her previous oncologist. She reports that a couple of months ago was feeling progressively fatigued and weak she describes a sensation where she gets a vibration in the top of her head. This is currently being worked up by the vascular physicians. She was working at [employer] but [place] is in the [place] because she was not able to keep up with the heavy lifting. She tries to be very active and has been having trouble with fatigue. She is asymptomatic from a carcinoid perspective. It appears that she is quite overwhelmed with physician work-up and office visits at this time and I suggested that, since she has been completely asymptomatic for almost 8 years since her resection that we can decrease the amount of visits as well as avoid additionalsurveillance CT scans or laboratories. Patient's disease was originally identified in 2011 and underwent resection fully following. She used to have symptoms of diarrhea related to carcinoid but has been asymptomatic. Her chromogranin A has been unreliable with respect to disease follow-up. She has had multiple scans that show no evidence of recurrent disease. December 07, 2018 still extreme tired all the time. [facility] and colonoscopy was ok with dr. Booker. dont have colonoscopy results of biopsy from [facility] but patient was told negative. Headaches same. Had eeg. Follows with Dr. Hall. MRI brain was normal. . \ CT of the chest abdomen and pelvis from 11/30/18 1. Several subcentimeter right-sided pulmonary nodules are identified, largest measuring 4-5 mm. The patient's history, correlation with follow-up examination in 3-6 months is recommended to assess for stability. 2. No substantial intrathoracic adenopathy is identified. 1. Several subcentimeter retroperitoneal lymph nodes are identified, none of which appear pathologically enlarged. Given the patient's history, correlation with a follow-up study to assess for stability is recommended. 2. Postoperative changes involving the abdomen and pelvis as above. June 14, 2019 ct c/a/p 06/12/[address] of the abdomen and pelvis. No gross gastric mass is visualized. No evidence ofbulky retroperitoneal or mesenteric adenopathy. 2. Nonobstructing 1-2 mm calculi in the right kidney. 3. Mild urothelial thickening involving the proximal right ureter, nonspecific. This may be infectious or inflammatory in nature. Alternatively, this could also be due to a recently passed calculus. Correlate clinically. Stable CT of the chest. Unchanged appearance of right lower lobe nodular opacities measuring up to 5 mm. No new or enlarging nodules are seen. No evidence of bulky intrathoracic adenopathy. ECOG PERFORMANCE STATUS: 1 PHYSICAL EXAMINATION: Vitals: BP 112/74 Pulse 87 Temp (Src) 98.1 (Temporal) Resp 16 Ht 5' .984 (1.55m) Wt 188 lb (85.3kg) SpO2 97% BMI 35.54 kg/(m^2). Body surface area is 1.92 meters squared. Exam limited to gross visualization where appropriate. Gen.: This is an age-appropriate patient in no acute distress. Head: Appears atraumatic with no visible lesions. Eyes: Pupils equally round and reactive to light, extraocular muscles are intact. Neck: Supple. Respiratory: Appears to be respiring comfortably. Neurologic: Nonfocal to gross visualization. Alert and oriented 3. Psychiatric: No evidence of inappropriate anxiety or depression. Skin: Visible areas of skin without rash, lesions, wounds or petechiae. ALLERGIES: ALLERGIES Allergen Reactions Iodinated Contrast * Hives Iodine Hives Nubain [Nalbuphine * Unknown MEDICATIONS: hyoscyamine SR (LEVBID) 0.375 mg 12 hr tablet Take 1 tablet by mouth every 12 hours. Phentermine HCl 37.5 mg tablet Take 37.5 mg by mouth once daily. zwwebt-grwnnbea-dqcsmgi (CREON 12) 12,000-38,000 -60,000 unit delayed release capsule Take As Directed by Physician. mkvvoe-dfsooywv-vgntdbs (CREON) 36,000-114,000- 180,000 unit delayed release capsule Take 1 capsuleby mouth four times daily. rOPINIRole (REQUIP) 0.25 mg tablet Take 0.5 mg by mouth once daily as needed. esomeprazole (NEXIUM) 40 mg capsule Take 1 capsule by mouth twice daily. magnesium oxide (MAG-OX) 400 mg (241.3 mg magnesium) tablet Take 1 tablet by mouth twice daily. rosuvastatin (CRESTOR) 10 mg tablet Take 10 mg by mouth daily at bedtime. L.acid/B.bifidum/B.animal/FOS (PROBIOTIC COMPLEX ORAL) Take by mouth. valACYclovir (VALTREX) 500 mg tablet 500 mg. traZODone (DESYREL) 50 mg tablet Take 100 mg by mouth daily at bedtime. iv contrast (will be provided with radiology test) CT ABD/PEL -Inject, intravenously, once for 1 dose.No IV access, insert saline lock prior to the beginning of sedation, infusion, injection of imaging exam. Discontinue saline lock post exam. If Pt. has a central line or IVAD, may access for administration according to line specific nursing protocol. Once exam is complete flush line and de-accessaccording to line specific nursing protocol in the CT contrast administration guidelines link. enteric contrast (will be provided with radiology test) For CT ABD/PEL W IVCON Routine order Administer, As Directed One Time Only, via Oral, Rectal, both Oral and Rectal, Enteric Tube, Stoma or Indwelling Catheter, Enteric Contrast as designated per enteric contrast guidelines predniSONE (DELTASONE) 50 mg Take 1 tablet by mouth as directed. Take 1 tablet @ 24H prior, 12H prior, 6H Prior and 1H prior - to CT scan for dye allergy. LABORATORY VALUES: WBC (k/uL) Date Value 03/14/2023 5.97 RBC (m/uL) Date Value 03/14/2023 4.51 Hemoglobin (g/dL) Date Value 03/14/2023 12.7 Hematocrit (%) Date Value 03/14/2023 38.4 MCV (fL) Date Value 03/14/2023 85.1 MCH (pg) Date Value 03/14/2023 28.2 MCHC (g/dL) Date Value 03/14/2023 33.1 RDW-CV (%) Date Value 03/14/2023 13.2 Platelet Count (k/uL) Date Value 03/14/2023 247 MPV (fL) Date Value 03/14/2023 9.2 Glucose (mg/dL) Date Value 03/14/2023 103 (H) BUN (mg/dL) Date Value 03/14/2023 12 Creatinine (mg/dL) Date Value 03/14/2023 0.72 Sodium (mmol/L) Date Value 03/14/2023 139 Potassium (mmol/L) Date Value 03/14/2023 4.3 Chloride (mmol/L) Date Value 03/14/2023 102 CO2 (mmol/L) Date Value 03/14/2023 29 Protein, Total (g/dL) Date Value 03/14/2023 7.4 Albumin (g/dL) Date Value 03/14/2023 5.1 (H) Calcium, Total (mg/dL) Date Value 03/14/2023 10.2 Alkaline Phosphatase (U/L) Date Value 03/14/2023 66 Bilirubin, Total (mg/dL) Date Value 03/14/2023 0.3 AST (U/L) Date Value 03/14/2023 25 ALT (U/L) Date Value 03/14/2023 12 DIAGNOSIS: (C7A.010) 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 encounter diagnosis) Plan: CT ABD/PEL W IVCON, iv contrast (will be provided with radiology test), enteric contrast (will be provided with radiology test), predniSONE (DELTASONE) 50 mg (K86.81) Exocrine pancreatic insufficiency PAST MEDICAL HISTORY Diagnosis Date Arthritis Carcinoid tumor of stomach Gall stones GERD (gastroesophageal reflux disease) Hemorrhoids Hyperlipidemia Stomach ulcer UTI (urinary tract infection) PAST SURGICAL HISTORY Procedure Laterality Date ANESTH, SECTION CHOLECYSTECTOMY COLONOSCOPY 03/22/2016 EGD HYSTERECTOMY HX LAP REMOVE/REV MESH BLADDER WALL PAST SURGICAL HISTORY OF 04/2019 breast reconstruction SLEEVE RESECTION STOMACH Social History Tobacco Use Smoking status: Former Types: Cigarettes Quit date: 05/2022 Years since quittin.8 Passive exposure: Current Smokeless tobacco: Never Vaping Use Vaping Use: Never used Substance Use Topics Alcohol use: Not Currently Drug use: No FAMILY HISTORY Problem Relation Age of Onset Diabetes Mother Colon Cancer Mother 55 detected on autopsy Aneurysm Mother 55 aortic Heart disease Father Hyperlipidemia Father Stroke Father Cancer Brother 48 kidney Cancer Brother spinal cord I spent a total of 30 minutes on the date of the service which included preparing to see the patient, oxfh-oe-qndt patient care, completing clinical documentation, performing a medically appropriate examination, counseling and educating the patient/family/caregiver, ordering medications, tests, or p rocedures, independently interpreting results (not separately reported), communicating results to the patient/family/caregiver, and care coordination (not separately reported). Annemarie Judd MD, CPE Hematology and Oncology Services Provided at: [place], [place] Scribe Attestation: This note was scribed by Nora Still on March 14, 2023 under the direction and supervision of Dr. Annemarie Judd. I attest that all of the information documented is correct to the best of my knowledge. Provider Attestation: I, Annemarie Judd MD, attest that all information documented by the above scribe is correct, and was supervised by me and under my direction. CC: Trey Brown, DO [address] [facility] [address] [facility] [id number] documented in this encounterCleveland Clinic [facility]11-06-2023 Instructions* Patient Instructions* Nora Still - 03/14/2023 1:38 PM EST Continue CREON more regularly CT A/P in 1-2 weeks RTC 1 week after scan documented in this encounterCleveland Clinic [facility]11-01-2023 Evaluation note* Encounter Date Diagnosis Assessment Notes Treatment Notes Treatment Clinical Notes Mar, Obstructive sleep apnea (ICD-10 - G47.33) [employer] Other 09-14-2023 NotePre-procedure Verification and Time Out: Pre-Procedure Verification and Time Out: Procedure Locationprocedure area HUDDLE - Pre-procedure Verificationcompleted TIME OUT - Final Verificationcompleted immediately prior to procedure start DEBRIEFcompleted General Information: Anesthesia Critical Care: Non-Anesthesia Date/Time of Procedure: 20-Jan-2023 Indication(s)/Pre Procedure Diagnoses: Device at end of service Post-Procedure Diagnosis: Device at end of service Procedure Name: Explant of cardiac event recorder Findings: grossly normal anatomy Procedure performed by: ri Toll Repairer Central Office(s): none Estimated Blood Loss (mL): none Specimen: no Informed Consent: written consent obtained Procedure Details: Procedure Details: Cardiac Event Recorder Explantation Summary: Successful explantation of a cardiac event recorder. Recommendations: 1.The patient should continue with the present medications. Discharge: 1.The patient left the EP laboratory in stable condition. Follow up: 1.The patient will be discharged on the day of the procedure, following bed rest and subsequent ambulation, provided the recovery parameters are appropriate. The patient should be alert for bleeding, swelling, or signs of infection. The patient should call the shaper set up operator immediately if symptoms recur, or for any problems. The patient and family ( via telephone with HIPAA consent) have been instructed accordingly. Procedures: Explant of implantable event recorder. Device analysis. Fluoroscopy. . Patient history: Please refer to the detailed history and physical on the patient's medical chart. Diagnosis Device at end of service Procedure narrative: The risks, benefits, and alternatives to the procedure and sedation were explained to the patient, and informed consent was obtained. The patient was in the fasting state. A grounding pad was placed. Self-adhesive anterior-posterior defibrillation pads were applied. A defibrillator was used for monitoring and the defibrillator waveform was set to biphasic. The patient was set up for continuous monitoring of surface 12 lead ECG and pulse oximetry. Blood pressure was monitored. The procedure was performed under IV conscious sedation. The upper chest was prepped and draped in the usual sterile fashion. Local anesthesia: After preoperative IV antibiotic was infused, subcutaneous tissues were infused with Lidocaine 1 % for local anesthesia. 1.Fluoroscopy identified the superior margin of the device, as the device had migrated. The device was analyzed, and no telemetry could be obtained. An incision was made above the header of device. 2.An implantable cardiac event recorder was explanted. 3. The pocket was flushed with vancomycin solution. 4.The skin was approximated with skin adhesive and steri strips. A sterile dressing was applied. For patient back comfort and anxiety, propofol was also administered. I scrubbed out of procedure to administer propofol. Capnography, oxygen saturation, heart rate, blood pressure, and rhythm were monitored. The patient was transferred to the telemetry unit. See signed procedural log and parameters. Complications: The patient tolerated the procedure without any complications or incident. EBL 0 cc Specimens obtained: No Prepared and signed by.. Tolerance: good Complications: None Electronic Signatures: Susana Floyd) (Signed 20-Jan-2023 17:02) Authored: Pre-procedure Verification and Time Out, General Information, Procedure Details, Note Completion Last Updated: 20-Jan-2023 17:02 by Susana Floyd)[facility] 01-20-2023 NoteHistory of Present Illness: /Lactating: Are You no Are You Currently Breastfeedingno History Present Illness: Reason for surgery: device at replacement HPI: She is anxious. She denies any palpitation, lightheadedness, dizziness, near syncope, or syncope. Allergies: Allergies: adenosine: Other contrast (specific type unknown): Unknown Nubain: Unknown iodine: Unknown Home Medication Review: Home Medications Reviewed: no Impression/Procedure: Impression and Planned Procedure: Device at end of service; Cardiac event recorder explant ERAS (Enhanced Recovery After Surgery): ERAS Patient: no Review of Systems: Review of Systems: Constitutional: NEGATIVE: Fever, Chills Cardiac: NEGATIVE: Chest Pain, Dyspnea on Exertion, Orthopnea, Palpitations, Syncope Neurological: NEGATIVE: Dizziness, Syncope Psychiatric: POSITIVE: Anxiety; COMMENTS: anxiety about procedures All Other Systems: All other systems reviewed and are negative Physical Exam by System: Constitutional: Well developed, awake/alert/oriented x3, no distress, alert and cooperative Eyes: EOMI, clear sclera ENMT: mucous membranes moist, no apparent injury, no lesions seen Head/Neck: Neck supple, no thyromegaly, No JVD, trachea midline Respiratory/Thorax: Patent airways, CTA bilaterally, no wheezing, normal breath sounds with good chest expansion, thorax symmetric Cardiovascular: Normal PMI, regular, rate and rhythm, , normal S 1and S 2, no murmurs, 2+ equal pulses radial, brachial, DP pulses Gastrointestinal: Nondistended, BS +, no bruits, soft, non-tender, no guarding, no masses palpable, no organomegaly Genitourinary: deferred Musculoskeletal: ROM intact, no joint swelling, normal strength Extremities: normal extremities; no cyanosis, edema, or contusions, no clubbing Neurological: alert and oriented x3, intact senses, motor normal strength; normal gait Breast: deferred Lymphatic: No cervical lymphadenopathy Psychological: Anxious; tremulous Skin: Warm and dry; tattoos; normal device pocket Airway/Sedation Assessment: Emotional Statusanxious Neurologicalert & oriented x 3 Respiratoryclear to auscultation Cardiovascularrhythm & rate regular GI/GUsoft, nontender Pulsespresent: Pedal Left, Pedal Right, Radial Left, Radial Right Mouth Opening OKyes Neck Flexibility OKyes Loose Teethno Oropharyngeal ClassificationClass II ASA PS ClassificationASA III Sedation Planmoderate sedation Consent: COVID-19 Consent: COVID-19 Risk ConsentSurgeon has reviewed mei risks related to the risk of marion COVID-19 and if they contract COVID-19 what the risks are. Electronic Signatures: Susana Floyd) (Signed 20-Jan-2023 16:48) Authored: History of Present Illness, Allergies, Home Medication Review, Impression/Procedure, ERAS, Review of Systems, Physical Exam, Consent, Note Completion Last Updated: 20-Jan-2023 16:48 by Susana Floyd)[facility] 01-20-2023 NoteElectrophysiology Procedure TestingPlease click on the link to view the study images (Normal)-[facility] [address] DO Work Phone: [phone]) 667-400808-23-2023 History and physical note* Naty Booker Jr., DO - 12/29/2022 10:15 AM EDT HISTORY AND PHYSICAL EXAMINATION SERVICE DATE: 12/29/2022 SERVICE TIME: 9:34 AM Chief Complaint: abd pain, GERD, carcinoid, blood in stool HPI:This is a 52 year old female who presents with GERD, abd pain, history of carcinoid of the stomach, blood in stool, family history of colon cancer (mother). Last EGD was 6 months ago. Last colonoscopy was 3 yrs ago. PAST MEDICAL HISTORY Diagnosis Date Arthritis Carcinoid tumor of stomach Gall stones GERD (gastroesophageal reflux disease) Hemorrhoids Hyperlipidemia Stomach ulcer UTI (urinary tract infection) PAST SURGICAL HISTORY Procedure Laterality Date ANESTH, SECTION CHOLECYSTECTOMY COLONOSCOPY 03/22/2016 EGD HYSTERECTOMY HX LAP REMOVE/REV MESH BLADDER WALL PAST SURGICAL HISTORY OF 04/2019 breast reconstruction SLEEVE RESECTION STOMACH FAMILY HISTORY Problem Relation Age of Onset Diabetes Mother Colon Cancer Mother 55 detected on autopsy Aneurysm Mother 55 aortic Heart disease Father Hyperlipidemia Father Stroke Father Cancer Brother 48 kidney Cancer Brother spinal cord Social History Tobacco Use Smoking status: Former Types: Cigarettes Quit date: 05/2022 Years since quittin.6 Passive exposure: Current Smokeless tobacco: Never Vaping Use Vaping Use: Never used Substance Use Topics Alcohol use: Not Currently Drug use: No (Not in a hospital admission) ALLERGIES Allergen Reactions Iodinated Contrast * Hives Iodine Hives Nubain [Nalbuphine * Unknown COMPLETE REVIEW OF SYSTEMS: GENERAL: No weight loss, malaise or fevers RESPIRATORY: Negative for cough, hemoptysis, wheezing, COPD, dyspnea or shortness of breath CARDIOVASCULAR: Negative for chest pain, leg swelling, hypertension, CHF or palpitations GI: Positive for abdominal discomfort , heart burn , blood in stool BP 138/81 Pulse 85 Temp (Src) 98 (Temporal) Resp 14 SpO2 97% O2 Therapy: Room Air PHYSICAL EXAM: Physical Exam Performed: GENERAL: Alert, no distress, cooperative LUNGS: Lungs clear to auscultation, Good diaphragmatic excursion CARDIAC: Normal S1 and S2; no rubs, murmurs, or gallops ABDOMEN: Abdomen soft, non-tender, BS normal, No masses or organomegaly EXTREMITIES: Extremities normal, no deformities, edema, clubbing or skin discoloration. Good capillary refill., No ulcers (R10.84) Generalized abdominal pain Plan: EGD DIAGNOSTIC, EGD DIAGNOSTIC, COLONOSCOPY DIAGNOSTIC, COLONOSCOPY DIAGNOSTIC (K21.9) Gastroesophageal reflux disease, unspecified whether esophagitis present Plan: EGD DIAGNOSTIC, EGD DIAGNOSTIC (Z86.012) History of benign carcinoid neoplasm of gastrointestinal tract Plan: EGD DIAGNOSTIC, EGD DIAGNOSTIC (Z80.0) Family history of colon cancer Plan: COLONOSCOPY DIAGNOSTIC, COLONOSCOPY DIAGNOSTIC (R19.4) Change in bowel habits Plan: COLONOSCOPY DIAGNOSTIC, COLONOSCOPY DIAGNOSTIC (Z80.0) Family history of colon cancer in mother SIGNATURE: Naty Booker Jr., DO PATIENT NAME: Hank Liu DATE: December 29, 2022 TIME: 9:34 AM PAGER/CONTACT #: documented in this encounterC[facility] Miscellaneous Notes* Telephone Encounter - Indu Gonzalez - 12/03/2022 3:14 PM EDT Spoke to patient she is scheduled at [place] 12/29 and on wait list * Telephone Encounter - Heather Bey RN - 12/03/2022 3:02 PM EDT Ok for EGD and colonoscopy Naty Booker Jr., DO Please call pt to schedule a double. Thank you Heather Bey RN * Telephone Encounter - Heather Bey RN - 12/02/2022 2:36 PM EDT Pt is calling stating she went to the ER In [place] after having rectal bleeding without having had a BM. She also had lower abdominal pain, along with umbilical pain. She reports having daily BM's that are thinner caliber and not feeling fully evacuated. CTAP was done in the ER and negative.She was asking for an EGD and colonoscopy. She is s/p susan for gallstones. She does feel her pain is worse after meals, along with bloating. Please review and advise as to next steps. Thank you Heather Bey RN * Telephone Encounter - Yamile Crockett PSS - 11/30/2022 1:46 PM EDT Hank Liu is calling Naty Booker Jr., DO today to request Patient Question and Orders Patient has been identified by name and birthdate. Call center had patient on the line looking for orders for a colonoscopy and endoscopy. She has been having stomach issues. The first appointment was in February she was told. She states that is to long. She is asking for the office to call her. Please advise Duration of symptoms: N/A Person calling: self Call patient at: at home , on cell , and , it is OK to leave message [phone] (home) [phone] (cell) Was an appointment scheduled: No Closing statement: Results or non-symptom based questions: Thank you for calling [facility], your call will be returned within the next business day. DARSHANA Reeves documented in this encounterC[facility]07-28-[facility]23 Instructions* Patient Instructions* Naty Booker Jr., DO - 12/03/2022 7:57 AM EDT Images from the original note were not included. Bowel Preparation Instructions for: Miralax-Gatorade Preparations IF YOU DO NOT FOLLOW THESE DIRECTIONS, YOUR COLONOSCOPY WILL BE CANCELLED. Mei Instructions: Your bowel must be empty so that your doctor can clearly view your colon. Follow all of the instructions in this handout EXACTLY as they are written. Do NOT eat any solid food the ENTIRE day before your colonoscopy. Buy your bowel preparation at least 5 days before your colonoscopy. Four (4) Dulcolax laxative tablets containing 5mg of bisacodyl each (NOT Dulcolax stool softener) One (1) 8.3oz. bottle Miralax (238 grams) or generic equivalent 2 x 32oz. Bottles of Gatorade (NOT RED) Diabetic Patients: Use G2 (Gatorade 2) TRANSPORTATION on the Day of Your Exam A responsible adult MUST be present with you at Check In prior to your colonoscopy and REMAIN in the endoscopy area until you are discharged. You are NOT ALLOWED to drive, take a taxi or bus, or leave the Endoscopy Center ALONE. If you do not have a responsible hazmat cdl a driver (family member or friend) withyou to take you home, your exam cannot be done with sedation and will be cancelled. Please bring a list of all of your current medications, including any Ipxl-ljw-Ptpqeev medications with you. Medications If you take insulin, diabetic medications or blood thinners such as Coumadin (warfarin), Plavix (clopidogrel), Ticlid (ticlopidine hydrochloride), Agrylin (anagrelide), Xarelto (Rivaroxaban), Pradaxa(Dabigatran), Eliquis (Apixaban), and Effient (Prasugrel). You MUST call the doctors who orders those medicines for instructions on altering the dosage before your colonoscopy. All other medications should be taken the day of the exam with a sip of water including ASPIRIN. Five (5) Days Before Your Colonoscopy Do NOT take medicines that stop diarrhea - such as Imodium, Kaopectate, or Pepto Bismol. Do NOT take fiber supplements - such as Metamucil, Citrucel, or Perdiem. Do NOT take products that contain iron - such as multi-vitamins (the label lists what is in the products). Three (3) Days Before Your Colonoscopy Do NOT eat high-fiber foods - such as popcorn, beans, seeds (flax, sunflower, quinoa), multigrain bread, nuts, salad/vegetables, or fresh and dried fruit. 1 Bowel Preparation Instructions for: Miralax-Gatorade Preparations One (1) Day Before Your Colonoscopy Only drink clear liquids the ENTIRE DAY before your colonoscopy. Do NOT eat any solid foods. Drink at least 8 ounces of clear liquids every hour after waking up. The clear liquids you can drink include: Clear Liquid (NO RED LIQUIDS) DO NOT DRINK Gatorade, Pedialyte or Powerade Clear broth or bouillon Coffee or tea (no milk or non-dairy creamer) Carbonated and non-carbonated soft drinks Jay-Aid or other fruit flavored drinks Strained fruit juices (no pulp) Jell-O, popsicles, hard candy Water Alcohol Milk or non-dairy creamers Noodles or vegetables in soup Juice with pulp Liquid you cannot see through Do not use tobacco/vaping products Mix 1/2 of Miralax bottle (119 grams) in each 32 ounces of Gatorade bottle until dissolved. Keep cool in the refrigerator. DO NOT ADD ICE. The bowel preparation solution will be consumed in two parts. Part 1 5:00 PM - Evening before your colonoscopy Take 4 Dulcolax tablets. 6 PM - Evening before your colonoscopy Drink 32 oz. of the mixed solution. Drink an 8 oz. glass of bowel preparation every 15 minutes for a total of 4 glasses. Fifteen (15) minutes later, drink an 8 oz. glass of of clear liquids every 15 minutes for a total of 2 glasses. You may continue to drink clear liquids till midnight. Part 2 On the day of your colonoscopy you may drink clear liquids up to (three) 3 hours prior to procedure. 4 1/2 hours before your colonoscopy Take another 32 oz. bottle of mixed solution. Drink an 8 oz. glass of bowel prep every 15 minutes for a total of 4 glasses. Fifteen (15) minutes later, drink an 8 oz. glass of clear liquids every 15 minutes for a total of 2glasses. You may continue to drink clear liquids up to (three) 3 hours before your exam. 2 04/2019 documented in this encounterC[facility]07-06-2023 Miscellaneous Notes* Telephone Encounter - Kyung Idalia - 11/11/2022 11:16 AM EDT Attempted to call Hank. Message left to let her know that Dr. Mann had a message for her and that I would send that message to her via My Chart. My Chart message sent * Telephone Encounter - Joaquim Mann MD - 11/11/2022 10:33 AM EDT Please call pt inform her that the ulrasound did not show any nodules Rec fu us thyroid 12 months Joaquim Mann MD documented in this encounterC[facility]06-19-[facility]23 History of Present illness Narrative* Joaquim Mann MD - 10/25/2022 10:01 AM EDT HPI Hank Liu is a 52 year old female who presents with thyroid nodule. Patient is seen in consultation for Dr Judd. Patient was complaining of a swelling in the right neck and ultrasound was done which showed a 4 mm nodule TI-RADS 5 patient does have a history of cancer of the stomach but nofamily history of thyroid cancer. ROS General Weight loss: No Fatigue: No Night sweats:No Cardiac Chest pain:No Fast heart rate:No Swelling in the feet:No Respiratory Short of breath:No Cough:No Wheezing:No Gastrointestinal Nausea:No Vomiting:No Indigestion:No Past medical history, family history, and social history reviewed. PE There were no vitals taken for this visit. General: Patient is awake, alert, NAD. Voice is normal. Skin: normal Eyes: Extraocular motion and Gaze is normal. Ears: Right external auditory canal is normal. TMJ: normal. Right tympanic membranes normal. Left external auditory canal is normal. Left tympanic membrane normal. Nose: Septum is normal. Turbinates are normal. Nasopharynx:normal Oral Cavity/Oropharynx: Lips normal Dentition normal Tongue normal. Tonsils normal. Palate and uvula normal. Pharynx posterior normal Hypopharynx: Base of tongue normal Pyriform sinus normal. Larynx: Vocal cords normal. Epiglottis normal. Post cricoid normal. Salivary glands: Parotid normal. Submandibular and sublingual normal. Thyroid: normal. Lymphatic/Neck: Lymph nodes normal. Right sternoclavicular joint no palpable nodule in the thyroid noted Neurologic: Facial nerve normal. ASSESSMENT/PLAN: 1. Thyroid nodule - ICD9: 241.0, ICD10: E04.1 Recommend ultrasound annually for 5 years Joaquim Mann MD Findings will be communicated to the referring physician via mail or electronic medical record. documented in this encounterC[facility]05-09-2023 Evaluation note* Encounter Date Diagnosis Assessment Notes Treatment Notes Treatment Clinical Notes September, Sore throat (ICD-10 - J02.9) covid and strep neg, see above. September, Viral URI (ICD-10 - J06.9) Informed pt that testing was negative. Will treat as viral at this time based on PE findings. Therefore, no abx is indicated for tx. Supportive care as directed. Rest and push fluids. Pt to take otc antipyretic prn for fever and aches. If coughing patient may take otc cough medicine. Pt to f/u with pcp as needed for persistent or recurrent sx. Pt understood and agreed to treatment plan. [employer] Other 03-28-2023 Miscellaneous Notes* Telephone Encounter - Sofie Sherman RN - 08/03/2022 4:20 PM EDT Informed pharmacist of Dr Amaral's response. She verbalized understanding and denies further needs at this time. Sofie Sherman RN * Telephone Encounter - Annemarie Judd MD - 08/03/2022 4:11 PM EDT 1-2 tablets with meals QAC * Telephone Encounter - Sofie Sherman RN - 08/03/2022 11:08 AM EDT Received call from Pharmacist at [facility] in [place] stating script for Creon does not have instructions. They need instructions for label. TIA: Please advise. Sofie Sherman, RN documented in this encounterC[facility] Clinic [facility]03-28-2023 Miscellaneous Notes* Addendum Note - Alethea Perales LPN - 08/03/2022 2:59 PM EDTAddended by: ALETHEA PERALES LPN on: 08/03/2022 02:59 PM Modules accepted: Orders * Telephone Encounter - Alethea Perales LPN - 08/03/2022 2:57 PM EDT Patient calling the office She states the pharmacy would like clarification on Creon prescription. Patient takes 1 capsule four times a day. Pharmacy electronically requesting refills as follows: Requested Prescriptions Signed Prescriptions Disp Refills ajtxnq-mcjivvkw-hfiahye (CREON) 36,000-114,000- 180,000 unit delayed release capsule 360 capsule 3 Sig: Take 1 capsule by mouth four times daily. Authorizing Provider: NATY BOOKER JR Ordering User: ALETHEA PERALES LPN * Telephone Encounter - Heather Bey RN - 08/03/2022 1:45 PM EDT Left voice message regarding results and advised to call office with any further questions. Heather Bey RN * Telephone Encounter - Heather Bey RN - 08/03/2022 1:45 PM EDT ----- Message from Naty Booker Jr., DO sent at 08/02/2022 4:22 PM EDT ----- Biopsies negative. Maintain Nexium. Naty Booker Jr., DO documented in this encounterC[facility] Clinic [facility]03-27-2023 Miscellaneous Notes* Telephone Encounter - Rosette Weeks MA - 08/02/2022 3:48 PM EDT Patient called requesting refill of Creon, she did speak with [facility] today and Dr. Booker' office had not approved the RX, she would like Dr. Amaral to refill it. Rosette Weeks MA documented in this encounterC[facility] Clinic [facility]03-24-2023 Miscellaneous Notes* Telephone Encounter - Heather Bey RN - 07/30/2022 4:18 PM EDT Pharmacy electronically requests the following refill(s) Requested Prescriptions Pending Prescriptions Disp Refills ynfzdy-aihjiwyx-lozwvti (CREON 12) 12,000-38,000 -60,000 unit delayed release capsule 250 capsule 3 Sig: Xgesdn-Rpfkbegt-Peckhqs (Creon) 12,000-38,000 -60,000 unit Capsule,Delayed Release(Dr/Ec) Active 1 CAP PO As Directed October 02, 2020 11:43am Heather Bey RN documented in this encounterCleveland Clinic [facility]03-24-2023 Nurse Note* Heather Knowles RN - 07/30/2022 1:54 PM EDT POST OP LEARNING RESPONSE INSTRUCTION PROVIDED TO: Patient and family member METHOD OF INSTRUCTION: Individual instruction Written instruction - handouts Verbal instruction PATIENT / FAMILY RESPONSE: Information received as demonstrated by interest and questions FOLLOW-UP PLAN: Recommend - Recommend continued instruction and follow up as directed SUPPLEMENTAL MATERIAL: Post sedation instructions given Procedure discharge instructions REFERRAL (RECOMMENDATION): None Electronically Signed By: Heather Knowles RN In Department: AMBULATORY SURGERY [facility]03-24-2023 Nurse Note* Heather Knowles RN - 07/30/2022 1:54 PM EDT POST OP LEARNING RESPONSE INSTRUCTION PROVIDED TO: Patient and family member METHOD OF INSTRUCTION: Individual instruction Written instruction - handouts Verbal instruction PATIENT / FAMILY RESPONSE: Information received as demonstrated by interest and questions FOLLOW-UP PLAN: Recommend - Recommend continued instruction and follow up as directed SUPPLEMENTAL MATERIAL: Post sedation instructions given Procedure discharge instructions REFERRAL (RECOMMENDATION): None Electronically Signed By: Heather Knowles RN In Department: AMBULATORY SURGERY * Paz Ann RN - 07/30/2022 12:50 PM EDT PRE OP LEARNING ASSESSMENT PROCEDURE/SURGERY: GI PROCEDURES: EGD READINESS TO LEARN COGNITIVE ABILITY: Alert and oriented MOTIVATION TO LEARN: Eager FAMILY SUPPORT: Unable to assess - Family not present PATIENT LEARNS BEST BY: Individual Instruction FACTORS AFFECTING LEARNING: None PHYSICAL LIMITATIONS AFFECTING LEARNING: None Electronically Signed By: Paz Lee RN In Department: AMBULATORY SURGERY documented in this encounterC[facility] Clinic [facility]03-24-2023 History and physical note * Naty Booker Jr., - 07/30/2022 1:00 PM EDT HISTORY AND PHYSICAL EXAMINATION SERVICE DATE: 07/30/2022 SERVICE TIME: 1:37 PM Chief Complaint: abd pain, history of carcinoid and peptic ulcer disease HPI:This is a 52 year old female who presents with abd pain, bloating, history of peptic ucler disease and carcinoid. Negative family history. PAST MEDICAL HISTORY Diagnosis Date Arthritis Carcinoid tumor of stomach Gall stones GERD (gastroesophageal reflux disease) Hemorrhoids Hyperlipidemia Stomach ulcer UTI (urinary tract infection) PAST SURGICAL HISTORY Procedure Laterality Date ANESTH, SECTION CHOLECYSTECTOMY COLONOSCOPY 03/22/2016 EGD HYSTERECTOMY HX LAP REMOVE/REV MESH BLADDER WALL PAST SURGICAL HISTORY OF 04/2019 breast reconstruction SLEEVE RESECTION STOMACH FAMILY HISTORY Problem Relation Age of Onset Diabetes Mother Colon Cancer Mother 55 detected on autopsy Aneurysm Mother 55 aortic Heart disease Father Hyperlipidemia Father Stroke Father Cancer Brother 48 kidney Cancer Brother spinal cord Social History Tobacco Use Smoking status: Some Days Smokeless tobacco: Never Vaping Use Vaping Use: Never used Substance Use Topics Alcohol use: Not Currently Drug use: No (Not in a hospital admission) ALLERGIES Allergen Reactions Iodinated Contrast * Hives Iodine Hives Nubain [Nalbuphine * Unknown COMPLETE REVIEW OF SYSTEMS: GENERAL: No weight loss, malaise or fevers RESPIRATORY: Negative for cough, hemoptysis, wheezing, COPD, dyspnea or shortness of breath CARDIOVASCULAR: Negative for chest pain, leg swelling, hypertension, CHF or palpitations GI: Positive for abdominal discomfort , nausea BP 128/76 Pulse 51 Resp 13 Ht 5' 1 (1.55m) Wt 190 lb (86.2kg) SpO2 100% BMI 35.92 kg/(m^2). O2 Therapy: Room Air PHYSICAL EXAM: Physical Exam Performed: GENERAL: Alert, no distress, cooperative LUNGS: Lungs clear to auscultation, Good diaphragmatic excursion CARDIAC: Normal S1 and S2; no rubs, murmurs, or gallops ABDOMEN: Abdomen soft, non-tender, BS normal, No masses or organomegaly EXTREMITIES: Extremities normal, no deformities, edema, clubbing or skin discoloration. Good capillary refill., No ulcers (K21.9) Gastroesophageal reflux disease, unspecified whether esophagitis present Plan: EGD DIAGNOSTIC, EGD DIAGNOSTIC SIGNATURE: Naty Booker Jr., DO PATIENT NAME: Hank Liu DATE: July 30, 2022 TIME: 1:37 PM PAGER/CONTACT #: [facility]03-24-2023 History and physical note* Naty Booker Jr., DO - 07/30/2022 1:00 PM EDT HISTORY AND PHYSICAL EXAMINATION SERVICE DATE: 07/30/2022 SERVICE TIME: 1:37 PM Chief Complaint: abd pain, history of carcinoid and peptic ulcer disease HPI:This is a 52 year old female who presents with abd pain, bloating, history of peptic ucler disease and carcinoid. Negative family history. PAST MEDICAL HISTORY Diagnosis Date Arthritis Carcinoid tumor of stomach Gall stones GERD (gastroesophageal reflux disease) Hemorrhoids Hyperlipidemia Stomach ulcer UTI (urinary tract infection) PAST SURGICAL HISTORY Procedure Laterality Date ANESTH, SECTION CHOLECYSTECTOMY COLONOSCOPY 03/22/2016 EGD HYSTERECTOMY HX LAP REMOVE/REV MESH BLADDER WALL PAST SURGICAL HISTORY OF 04/2019 breast reconstruction SLEEVE RESECTION STOMACH FAMILY HISTORY Problem Relation Age of Onset Diabetes Mother Colon Cancer Mother 55 detected on autopsy Aneurysm Mother 55 aortic Heart disease Father Hyperlipidemia Father Stroke Father Cancer Brother 48 kidney Cancer Brother spinal cord Social History Tobacco Use Smoking status: Some Days Smokeless tobacco: Never Vaping Use Vaping Use: Never used Substance Use Topics Alcohol use: Not Currently Drug use: No (Not in a hospital admission) ALLERGIES Allergen Reactions Iodinated Contrast * Hives Iodine Hives Nubain [Nalbuphine * Unknown COMPLETE REVIEW OF SYSTEMS: GENERAL: No weight loss, malaise or fevers RESPIRATORY: Negative for cough, hemoptysis, wheezing, COPD, dyspnea or shortness of breath CARDIOVASCULAR: Negative for chest pain, leg swelling, hypertension, CHF or palpitations GI: Positive for abdominal discomfort , nausea BP 128/76 Pulse 51 Resp 13 Ht 5' 1 (1.55m) Wt 190 lb (86.2kg) SpO2 100% BMI 35.92 kg/(m^2). O2 Therapy: Room Air PHYSICAL EXAM: Physical Exam Performed: GENERAL: Alert, no distress, cooperative LUNGS: Lungs clear to auscultation, Good diaphragmatic excursion CARDIAC: Normal S1 and S2; no rubs, murmurs, or gallops ABDOMEN: Abdomen soft, non-tender, BS normal, No masses or organomegaly EXTREMITIES: Extremities normal, no deformities, edema, clubbing or skin discoloration. Good capillary refill., No ulcers (K21.9) Gastroesophageal reflux disease, unspecified whether esophagitis present Plan: EGD DIAGNOSTIC, EGD DIAGNOSTIC SIGNATURE: Naty Booker Jr., DO PATIENT NAME: Hank Liu DATE: July 30, 2022 TIME: 1:37 PM PAGER/CONTACT #: documented in this encounterC[facility] Clinic [facility]03-24-[facility] Nurse Note* Paz Ann RN - 07/30/2022 12:50 PM EDT PRE OP LEARNING ASSESSMENT PROCEDURE/SURGERY: GI PROCEDURES: EGD READINESS TO LEARN COGNITIVE ABILITY: Alert and oriented MOTIVATION TO LEARN: Eager FAMILY SUPPORT: Unable to assess - Family not present PATIENT LEARNS BEST BY: Individual Instruction FACTORS AFFECTING LEARNING: None PHYSICAL LIMITATIONS AFFECTING LEARNING: None Electronically Signed By: Paz Lee RN In Department: AMBULATORY SURGERY [facility]03-16-2023 Instructions* Patient Instructions* Darvin Pritchard MD - 07/22/2022 2:22 PM EDT Schedule EGD in Q3 - you can call [phone] to schedule documented in this encounterCleveland Clinic [facility]03-16-2023 History of Present illness Narrative* Darvin Pritchard MD - 07/22/2022 2:00 PM EDT NEW VIRTUAL CONSULT I had a virtual consult with Ms. Liu today. Her local doctors have given her a diagnosis of GERD. This consult was requested by Dr Booker for an opinion regarding GERD , and my final recommendationswill be communicated to the requesting health care provider by way of the shared medical record forinternal providers or letter via the [employer] for external providers. HISTORY: --History of carcinoid tumor of stomach, resection in 2011 --EGD in 02/2022 with gastric ulcer --Takes esomeprazole twice daily since February - helps 50-60% PAST MEDICAL HISTORY Diagnosis Date Arthritis Carcinoid tumor of stomach Gall stones GERD (gastroesophageal reflux disease) Hemorrhoids Hyperlipidemia Stomach ulcer UTI (urinary tract infection) PAST SURGICAL HISTORY Procedure Laterality Date ANESTH, SECTION CHOLECYSTECTOMY COLONOSCOPY 03/22/2016 EGD HYSTERECTOMY HX LAP REMOVE/REV MESH BLADDER WALL PAST SURGICAL HISTORY OF 04/2019 breast reconstruction SLEEVE RESECTION STOMACH FAMILY HISTORY Problem Relation Age of Onset Diabetes Mother Colon Cancer Mother 55 detected on autopsy Aneurysm Mother 55 aortic Heart disease Father Hyperlipidemia Father Stroke Father Cancer Brother 48 kidney Cancer Brother spinal cord Social History Tobacco Use Smoking status: Some Days Smokeless tobacco: Never Vaping Use Vaping Use: Never used Substance Use Topics Alcohol use: Yes Drug use: No Current Outpatient Medications Medication Sig Dispense Refill esomeprazole (NEXIUM) 40 mg capsule Take 1 capsule by mouth twice daily. 60 capsule 4 arosni-ukhksmgi-iukauhu (CREON 12) 12,000-38,000 -60,000 unit delayed release capsule Lnfpnu-Cptwtxaf-Iusgxxy (Creon) 12,000-38,000 -60,000 unit Capsule,Delayed Release(Dr/Ec) Active 1 CAP PO As Directed October 02, 2020 11:43am 250 capsule 3 magnesium oxide (MAG-OX) 400 mg (241.3 mg magnesium) tablet Take 1 tablet by mouth twice daily. rosuvastatin (CRESTOR) 10 mg tablet Take 10 mg by mouth daily at bedtime. L.acid/B.bifidum/B.animal/FOS (PROBIOTIC COMPLEX ORAL) Take by mouth. valACYclovir (VALTREX) 500 mg tablet 500 mg. traZODone (DESYREL) 50 mg tablet Take 100 mg by mouth daily at bedtime. No current facility-administered medications for this visit. ALLERGIES Allergen Reactions Iodinated Contrast * Hives Iodine Hives Nubain [Nalbuphine * Unknown REVIEW OF SYSTEMS: PAIN ASSESSMENT: Negative for pain, history of chronic pain, or current treatment for a chronic pain condition. GENERAL: No weight loss, malaise or fevers RESPIRATORY: Negative for cough, hemoptysis, wheezing, COPD, dyspnea or shortness of breath CARDIOVASCULAR: Negative for chest pain, leg swelling, hypertension, CHF or palpitations GI: see above MUSCULOSKELETAL: Negative for joint pain or swelling, back pain or muscle pain SKIN: Negative for lesions, rash, and itching ENDOCRINE: Negative for cold or heat intolerance, polyuria, polydipsia and goiter NEURO: No history of headaches, syncope, paralysis, seizures or tremors PHYSICAL FINDINGS OF NOTE: General - Normal, healthy, cooperative, in no acute distress Able to interact verbally by video conference Psych - ORIENTATION: normal to time place, person and situation Mood/Affect: AFFECT AND MOOD: Normal Head/Neuro - Normal size and shape Facial appearance normal Pulmonary - respiratory effort normal Cardiovascular - patient describes extremities normal, warm, no cyanosis,no clubbing, and no edema Abdominal - Not performed Skin - abnormal lesions not visualized Motor - patient seen sitting with Normal appearing strength and coordination REVIEWED ITEMS The examined esophagus was normal. Two small non-bleeding cratered gastric ulcers with no stigmata of bleeding were found on the anterior wall of the gastric antrum. Biopsies were taken with a cold forceps for histology. The examined duodenum was normal. A. Stomach, antrum, ulcers, biopsy: - Erosive reactive gastropathy. - Helicobacter pylori stain pending, the result will be reported as an addendum. IMPRESSION 52F with history of carcinoid, presents with dyspepsia. Found to have gastric ulcer in 02/2022, hadpartial symptomatic response to PPI BID RECOMMENDATION: --Given gastric ulcer in 02/2022, recommend repeat EGD to ensure resolution with PPI BID Darvin Pritchard MD documented [facility] encounterC[facility] Miscellaneous Notes* Telephone Encounter - Pao Zhang RN - 07/21/2022 2:11 PM EDT Freddie returned call. She has history of GI cancer, was having esophageal spasms and now has extremely sore throat. Her PCP wants her to have EGD, esophagram and upper GI to evaluate. Her local GI doctor ([facility]) does not think she needs another scope, given she was scoped a few months ago. documented in this encounterC[facility] Miscellaneous Notes* Telephone Encounter - Pao Zhang RN - 07/21/2022 12:31 PM EDT Called patient to discuss appointment need. Left VM inquiring if she is seeking an EGD or an EGD/EUS. Advised that Dr. Pritchard would be happy to discuss her care with her but that he does not do EUS procedures. Advised that she may want to call and reschedule with another provider. documented in this encounterC[facility]03-10-2023 Instructions* Patient Instructions* Annemarie Judd MD - 07/16/2022 3:14 PM EST Keep prior appointments documented in this encounterC[facility]03[facility] History of Present illness Narrative* Annemarie Judd MD - 07/16/2022 2:55 PM EST Images from the original note were not included. NAME: Hank Liu CLINIC NO.: [id number] DATE OF SERVICE: July 16, 2022 (Benjamín) Some elements in this clinic note that are critical to medical decision making have been carefully reviewed and included from a prior clinic note dated: February 11, 2022 Additional Clinicians involved in Hank Liu's care: Trey Brown DO ASSESSMENT/PLAN: History of carcinoid of the upper GI tract. Resected in 2011 without adjuvant therapy. We don't have all the records and she is not clear on the details. Currently in surveillance. Has chronic diarrhea. Octrescan 10/24/17 did not identify recurrent or metastatic disease. Elevating chromogranin A in November 2018 prompted additional workup. Now with abdominal discomfort that is progressing, will get imaging to assess. 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 She has multople areas of tenderness at S-C joints and forearms. imaging showed something on right clavicle as well as thyroid nodule Very sore throat - sounds like refulx Started ever since being on ozempic - throws up frequently. - Will have to stop Ozempic. BiRads 5 right thyroid gland nodule 0.4 x 0.4 x 0.4. will need FNA if > 1.0 Updated Visit, February 11, 2022: July 06, 2021 CT Abd / pelvis @ [facility]- right nephrolithiasis otherwise unremarkable. She called in regarding continued abdominal bloating and also bilateral arm pain Sleep apnea - on CPAP for past month - feeling like she's sleeping better Borderline DMII started metformin and then stopped it Will encourage to restart. Take creon more regularly, oncology nutrition consult Exam - abdomen is full, obese. Reproducible pain at multiple points along ribs as well as chest along sternum. Arms ache. Many of her pain issues may be related to her gain in weight in face of her prior abdominoplasty.. Updated Visit, June 25, 2021: She feels intermittent inflammation and discomfort around her rib cage associated with recurring feelings of bloating Had COVID in May - now the swellling in her abdomen is intensifying although it was occurring prior to COVID. Work at [employer] [facility] [facility] and after a long day she has the most symptoms Palpitations for quite some time - now has an implanted loop recorder. Has a lower abdominal ventral hernia that is palpable on exam today. Updated Visit, July 25, 2020: Hank is 50 yo and ad a history of resected carcinoid but was complaining of persisting abdominal pain. Ct scan was obtained and reviewed with her. No evidence of recurrence was noted. Her chromogranin was not elevated. She still has pain in the sides of her ribs for an unknown etiology, but felt mu sculoskelatal in nature. She had no other complaints and was relieved to know her scans were clear.Abdominal pain comes and goes and as mostly resolved. However, she has a kidney stone that has grown but is non-obstructing. Updated Visit, June 30, 2020: Stomach is keeping her up. She had recent scans in [facility]. We will discover these and call her next week to determine further testing. She has had no evidence of recurrence for at least 8 years following her resection. Updated Visit, January 07, 2020: Hank is 49 years old and returns in follow-up as a patient in transition from her previous oncologist. She reports that a couple of months ago was feeling progressively fatigued and weak she describes a sensation where she gets a vibration in the top of her head. This is currently being worked up by the vascular physicians. She was working at [employer] but now is in the [place] because she was not able to keep up with the heavy lifting. She tries to be very active and has been having trouble with fatigue. She is asymptomatic from a carcinoid perspective. It appears that she is quite overwhelmed with physician work-up and office visits at this time and I suggested that, since she has been completely asymptomatic for almost 8 years since her resection that we can decrease the amount of visits as well as avoid additionalsurveillance CT scans or laboratories. Patient's disease was originally identified in 2011 and underwent resection fully following. She used to have symptoms of diarrhea related to carcinoid but has been asymptomatic. Her chromogranin A has been unreliable with respect to disease follow-up. She has had multiple scans that show no evidence of recurrent disease. December 07, 2018 still extreme tired all the time. egd and colonoscopy was ok with dr. Booker. dont have colonoscopy results of biopsy from [facility] but patient was told negative. Headaches same. Had eeg. Follows with Dr. Hall. MRI brain was normal. . \ CT of the chest abdomen and pelvis from 11/30/18 1. Several subcentimeter right-sided pulmonary nodules are identified, largest measuring 4-5 mm. The patient's history, correlation with follow-up examination in 3-6 months is recommended to assess for stability. 2. No substantial intrathoracic adenopathy is identified. 1. Several subcentimeter retroperitoneal lymph nodes are identified, none of which appear pathologically enlarged. Given the patient's history, correlation with a follow-up study to assess for stability is recommended. 2. Postoperative changes involving the abdomen and pelvis as above. June 14, 2019 ct c/a/p 06/12/[address] of the abdomen and pelvis. No gross gastric mass is visualized. No evidence ofbulky retroperitoneal or mesenteric adenopathy. 2. Nonobstructing 1-2 mm calculi in the right kidney. 3. Mild urothelial thickening involving the proximal right ureter, nonspecific. This may be infectious or inflammatory in nature. Alternatively, this could also be due to a recently passed calculus. Correlate clinically. Stable CT of the chest. Unchanged appearance of right lower lobe nodular opacities measuring up to 5 mm. No new or enlarging nodules are seen. No evidence of bulky intrathoracic adenopathy. ECOG PERFORMANCE STATUS: 1 PHYSICAL EXAMINATION: Vitals: BP 116/66 Pulse 83 Temp (Src) 97.6 (Temporal) Resp 16 Wt 190 lb (86.2kg) SpO2 98% Body surface area is 1.93 meters squared. General:This is an age-appropriate patient in no acute distress. Head: Atraumatic, symmetric with no lesions visible. Eyes: Pupils equally round and reactive to light, extraocular muscles intact. Neck: Supple Mouth: Mucous membranes are moist, no thrush is noted. Lungs: Clear to auscultation bilaterally with no wheezes crackles or rales. Cardiovascular: Regular rate and rhythm with no murmurs or gallops. Peripheral pulses: Normal. Gastrointestinal: Soft,non-specific tenderness in upper abdomen, normoactive bowel sounds, with no appreciable hepatosplenomegaly. Ventral hernia as noted in HPI. Musculoskeletal: No appreciable bony abnormalities or tenderness except over left lateral rib cage.And sternum Extremities: Lower extremities without edema. Neurologic: Nonfocal to gross visualization. Alert and oriented 3. Psychiatric: No evidence of inappropriate anxiety or depression. Skin: No overt rashes wounds or petechiae. ALLERGIES: ALLERGIES Allergen Reactions Iodinated Contrast * Hives Iodine Hives Nubain [Nalbuphine * Unknown MEDICATIONS: esomeprazole (NEXIUM) 40 mg capsule Take 1 capsule by mouth twice daily. magnesium oxide (MAG-OX) 400 mg (241.3 mg magnesium) tablet Take 1 tablet by mouth twice daily. rosuvastatin (CRESTOR) 10 mg tablet Take 10 mg by mouth daily at bedtime. L.acid/B.bifidum/B.animal/FOS (PROBIOTIC COMPLEX ORAL) Take by mouth. valACYclovir (VALTREX) 500 mg tablet 500 mg. traZODone (DESYREL) 50 mg tablet Take 100 mg by mouth daily at bedtime. dicyclomine (BENTYL) 10 mg capsule Take 10 mg by mouth before meals and at bedtime. bjkrxg-sknrnjlz-esdyhie (CREON) 36,000-114,000- 180,000 unit delayed release capsule Take 1 capsuleby mouth four times daily. ukkwnm-lowgqjgz-fpzqqdr (CREON 12) 12,000-38,000 -60,000 unit delayed release capsule Ylwble-Gowutbku-Yakfjhc (Creon) 12,000-38,000 -60,000 unit Capsule,Delayed Release(Dr/Ec) Active 1 CAP PO As Directed October 02, 2020 11:43am buPROPion XL (WELLBUTRIN XL) 150 mg 24 hr tablet Take 150 mg by mouth once daily. simethicone, chewable (MYLICON) 80 mg chewable tablet Take 1 tablet by mouth every 6 hours as needed for up to 240 doses. LABORATORY VALUES: WBC (k/uL) Date Value 02/11/2022 6.18 RBC (m/uL) Date Value 02/11/2022 4.27 Hemoglobin (g/dL) Date Value 02/11/2022 12.2 Hematocrit (%) Date Value 02/11/2022 37.1 MCV (fL) Date Value 02/11/2022 86.9 MCH (pg) Date Value 02/11/2022 28.6 MCHC (g/dL) Date Value 02/11/2022 32.9 RDW-CV (%) Date Value 02/11/2022 13.9 Platelet Count (k/uL) Date Value 02/11/2022 253 MPV (fL) Date Value 02/11/2022 9.0 Glucose (mg/dL) Date Value 02/11/2022 104 (H) BUN (mg/dL) Date Value 02/11/2022 17 Creatinine (mg/dL) Date Value 02/11/2022 0.64 Sodium (mmol/L) Date Value 02/11/2022 141 Potassium (mmol/L) Date Value 02/11/2022 4.4 Chloride (mmol/L) Date Value 02/11/2022 105 CO2 (mmol/L) Date Value 02/11/2022 28 Protein, Total (g/dL) Date Value 02/11/2022 6.9 Albumin (g/dL) Date Value 02/11/2022 4.6 Calcium, Total (mg/dL) Date Value 02/11/2022 9.7 Alkaline Phosphatase (U/L) Date Value 02/11/2022 77 Bilirubin, Total (mg/dL) Date Value 02/11/2022 0.2 AST (U/L) Date Value 02/11/2022 23 ALT (U/L) Date Value 02/11/2022 13 DIAGNOSIS: (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) (primary encounter diagnosis) (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) PAST MEDICAL HISTORY Diagnosis Date Arthritis Carcinoid tumor of stomach Gall stones GERD (gastroesophageal reflux disease) Hemorrhoids Hyperlipidemia Stomach ulcer UTI (urinary tract infection) PAST SURGICAL HISTORY Procedure Laterality Date ANESTH, SECTION CHOLECYSTECTOMY COLONOSCOPY 03/22/2016 EGD HYSTERECTOMY HX LAP REMOVE/REV MESH BLADDER WALL PAST SURGICAL HISTORY OF 04/2019 breast reconstruction SLEEVE RESECTION STOMACH Social History Tobacco Use Smoking status: Some Days Smokeless tobacco: Never Vaping Use Vaping Use: Never used Substance Use Topics Alcohol use: Yes Drug use: No FAMILY HISTORY Problem Relation Age of Onset Diabetes Mother Colon Cancer Mother 55 detected on autopsy Aneurysm Mother 55 aortic Heart disease Father Hyperlipidemia Father Stroke Father Cancer Brother 48 kidney Cancer Brother spinal cord I spent a total of 30 minutes on the date of the service which included preparing to see the patient, [id number] patient care, completing clinical documentation, performing a medically appropriate examination, counseling and educating the patient/family/caregiver, ordering medications, tests, or p rocedures, and independently interpreting results (not separately reported). Annemarie Judd MD, [place], [place] CC: Trey Brown, DO [address] [address] [facility] [id number] documented in this encounterC[facility]03-08-2023 Miscellaneous Notes* Telephone Encounter - Heather Bey RN - 07/14/2022 8:55 AM EST Needs ENT evaluation. Not sure repeat EGD would add much. Check esophagram with UGI series. Followup office. Naty Booker Jr., DO LVM for pt advising her of Dr. Booker's recommendations, testing ordered and the need for ENT. Heather Bey RN * Telephone Encounter - Heather Bey RN - 07/13/2022 4:[address] Booker. Spoke to pt regarding her current symptoms. She reports having a new lump on where her thyroid is located . She is having severe burning in stomach and esophagus. She reports taking PeptoBismal daily due to symptoms. Pt does report she is having an US of her thyroid Thurs at [facility] and will have results faxed to our office. She does state she was told to reach out to GI also to see if pt can get in for EGD again. Please review and advise. Thank you 02/25/22 EGD was negative for malignancy, h.pylori, and recurrence of carcinoid. 02/28/22 bx report notes: Ulcers noted. Maintain Carafate, dicyclomine, and Nexium. My increase Nexium to 40 mg bid if still with symptoms. Pharmacy electronically requests the following refill(s) Requested Prescriptions Pending Prescriptions Disp Refills esomeprazole (NEXIUM) 40 mg capsule 60 capsule 4 Sig: Take 1 capsule by mouth twice daily. Heather Bey RN * Telephone Encounter - Sandra Linda - 07/13/2022 3:38 PM EST Patient calling you back. She is home now. Please call Thank you Sandra Linda PSS * Telephone Encounter - Heather Bey RN - 07/12/2022 2:04 PM EST Called pt at the number provided to discuss her symptoms. Pt did not answer phone. Asked for return call to discuss further. Heather Bey RN * Telephone Encounter - Fabiana Moon - 07/12/2022 2:00 PM EST Patient calls stating her PCP is referring her to Dr. Booker for an EGD. Pt states she has a lump atthe base of her throat. Patient wising to schedule procedure. I advised patient she does not have an order. Please review/advise. documented in this encounterC[facility]03-03-[facility]23 Miscellaneous Notes* Telephone Encounter - Hillary Morgan - 07/09/2022 10:41 AM EST Spoke to patient & scheduled lab on 07/16/2022@2:30 pm & TIA @2:45 pm. Hillary Ruff Ferniesheba * Telephone Encounter - Hillary Ruff Eddie - 07/09/2022 8:48 AM EST Lvm for patient to call us back to schedule an appointment for lab & TIA next week. Hillary Ruff Eddie * Telephone Encounter - Sofie Sherman RN - 07/08/2022 4:49 PM EST PSS: Please schedule pt for next week with TIA. Thank you. Sofie Sherman RN * Telephone Encounter - Annemarie Judd MD - 07/08/2022 4:45 PM EST Sure - next week ok? * Telephone Encounter - Sofie Shermna RN - 07/08/2022 12:25 PM EST Received call from pt stating she has had a lump at the base of her throat for about 10 weeks now and it's growing. She would like to come in to see Dr Amaral. TIA: Ok to schedule pt to see you? Sofie Sherman RN documented in this encounterC[facility]12-01-[facility] Evaluation note* Encounter Date Diagnosis Assessment Notes Treatment Notes Treatment Clinical Notes Apr, Cough (ICD-10 - R05.9) FINAL READ shows no acute cardiopulmonary abnormality. Results were reviewed and discussed with pt in office at time of visit and they verbally understood these findings. Apr, COVID (ICD-10 - U07.1) Covid test pos in office today. Supportive care as directed. Push fluids and rest. Pt is to take otc antipyretic prn for fever and aches. Pt is to take otc cough suppressant prn for cough. They are to follow the recommended stay at home quarantine rules for 5 days from onset of sx with 5 days of mask wearing in public and they are to avoid contact with others in the home. Pt is to be re-evaluated after tx if sx worsen or don't improve by pcp or UC. Discussed at length sx of resp distress that would indicate need for immediate ER tx. Sx include but not limited to worsening SOB, wheeze, dyspnea, difficulty swallowing or breathing, and chest pain. Go straight to ER for any of these sx. Pt is to call the office with any questions or concerns regarding dx and tx. Information sheet with test results and quarantine guidelines was provided to pt in office today. Pt was referred to PCP for chronic management. Pt understood and agreed to tx plan. [employer] Other 11-08-2022 Miscellaneous Notes* Telephone Encounter - Dena Reynoso - 03/16/2022 4:54 PM EST Patient states her HR department did not receive her paperwork and asking if this can be faxed overSTAT before tomorrow morning or she will not have a job. Please refax DAVID. documented in this encounterCleveland Clinic [facility]11-04-[facility] History of Present illness Narrative* Heather Bey RN - 03/12/2022 2:30 PM EDT No chief complaint on file. HPI: Hank Liu, 51 year old female, presents in the office today for follow up Past GI workup: 02/25/22 EGD was done for c/o upper abdominal pain, per Dr. Booker Normal esophagus. two small non-bleeding gastric ulcers with no stigmata of bleeding. Biopsied. Normal examined duodenum Biopsies as follows: Stomach, antrum, ulcers, biopsy: - Erosive reactive gastropathy. - Helicobacter pylori stain pending, the result will be reported as an addendum. 02/25/[address] Booker as follows: This is a 51 year old female who presents with with recent gastroenteritis, known history of carcinoid of the stomach in remission, presenting with generalized abd pain, poor oral intake, nasuea. Last labs as follows: Component Latest Ref Rng & Units 06/25/2021 02/11/2022 02/25/2022 WBC 3.70 - 11.00 k/uL 5.34 6.18 RBC 3.90 - 5.20 m/uL 4.07 4.27 Hemoglobin 11.5 - 15.5 g/dL 11.7 12.2 Hematocrit 36.0 - 46.0 % 34.8 (L) 37.1 MCV 80.0 - 100.0 fL 85.5 86.9 MCH 26.0 - 34.0 pg 28.7 28.6 MCHC 30.5 - 36.0 g/dL 33.6 32.9 RDW-CV 11.5 - 15.0 % 14.3 13.9 Platelet Count 150 - 400 k/uL 241 253 MPV 9.0 - 12.7 fL 8.9 (L) 9.0 Neut% % 46.7 49.8 Abs Neut (ANC) 1.45 - 7.50 k/uL 2.48 3.08 Lymph% % 42.3 39.2 Abs Lymph 1.00 - 4.00 k/uL 2.26 2.42 [place]% % 7.5 7.6 Abs [place] <0.87 k/uL 0.40 0.47 Eosin% % 2.8 2.4 Abs Eosin <0.46 k/uL 0.15 0.15 Baso% % 0.7 0.8 Abs Baso <0.11 k/uL 0.04 0.05 Immature Gran % % 0.2 IMMATURE GRANS (ABS) <0.10 k/uL <0.03 NRBC /100 WBC 0.0 Absolute nRBC <0.01 k/uL <0.01 <0.01 DTYPE Auto Nucleated Reds 0 /100 WBC 0.0 Diff Type Auto Diff Protein, Total 6.3 - 8.0 g/dL 6.9 6.9 Albumin 3.9 - 4.9 g/dL 4.6 4.6 Calcium 8.5 - 10.2 mg/dL 9.7 9.7 Bilirubin, Total 0.2 - 1.3 mg/dL 0.2 0.2 Alkaline Phosphatase 34 - 123 U/L 64 77 AST 13 - 35 U/L 18 23 Glucose 74 - 99 mg/dL 93 104 (H) BUN 7 - 21 mg/dL 12 17 Creatinine 0.58 - 0.96 mg/dL 0.70 0.64 Sodium 136 - 144 mmol/L 140 141 Potassium 3.7 - 5.1 mmol/L 4.2 4.4 Chloride 97 - 105 mmol/L 104 105 CO2 22 - 30 mmol/L 27 28 Anion Gap 9 - 18 mmol/L 9 8 (L) ALT 7 - 38 U/L 8 13 eGFR- >60 eGFR-All Other Races . >60 eGFR >=60 mL/min/1.73m 106 Chromogranin A <98 ng/mL 85 Glucose, Point of Care 74 - 99 mg/dL 96 PAST MEDICAL HISTORY Diagnosis Date Arthritis Carcinoid tumor of stomach Gall stones GERD (gastroesophageal reflux disease) Hemorrhoids Hyperlipidemia Stomach ulcer UTI (urinary tract infection) PAST SURGICAL HISTORY Procedure Laterality Date ANESTH, SECTION CHOLECYSTECTOMY COLONOSCOPY 03/22/2016 EGD HYSTERECTOMY HX LAP REMOVE/REV MESH BLADDER WALL PAST SURGICAL HISTORY OF 04/2019 breast reconstruction SLEEVE RESECTION STOMACH Current Outpatient Medications on File Prior to Visit Medication Sig dicyclomine (BENTYL) 10 mg capsule Take 10 mg by mouth before meals and at bedtime. sucralfate (CARAFATE) 1 gram tablet Take 1 tablet by mouth four times daily. mtufuu-ynaqbbyv-xwdbbpy (CREON) 36,000-114,000- 180,000 unit delayed release capsule Take 1 capsuleby mouth four times daily. klcywg-zybyeddq-flnmcwm (CREON 12) 12,000-38,000 -60,000 unit delayed release capsule Stxsam-Jtwdvnvp-Euwuhzf (Creon) 12,000-38,000 -60,000 unit Capsule,Delayed Release(Dr/Ec) Active 1 CAP PO As Directed October 02, 2020 11:43am buPROPion XL (WELLBUTRIN XL) 150 mg 24 hr tablet Take 150 mg by mouth once daily. (Patient not taking: Reported on 02/23/2022) magnesium oxide (MAG-OX) 400 mg (241.3 mg magnesium) tablet Take 1 tablet by mouth twice daily. rosuvastatin (CRESTOR) 10 mg tablet Take 10 mg by mouth daily at bedtime. L.acid/B.bifidum/B.animal/FOS (PROBIOTIC COMPLEX ORAL) Take by mouth. simethicone, chewable (MYLICON) 80 mg chewable tablet Take 1 tablet by mouth every 6 hours as needed for up to 240 doses. valACYclovir (VALTREX) 500 mg tablet 500 mg. traZODone (DESYREL) 50 mg tablet Take 100 mg by mouth daily at bedtime. No current facility-administered medications on file prior to visit. Allergies: Iodinated Contrast * Hives Iodine Hives Nubain [Nalbuphine * Unknown Review of Systems There were no vitals taken for this visit. Physical Exam * Naty Booker Jr., DO - 03/12/2022 2:17 PM EDT Patient presents with: Follow Up for peptic ulcer disease HPI: Hank Liu, 51 year old female, presents in the office today for followup after EGD. She was having severe abd pain, bloating related to peptic ulcer disease and gastroenteritis. Symptoms have resolved. EGD biopsies were negative for malignancy, h.pylori, and recurrence of carcinoid. PAST MEDICAL HISTORY Diagnosis Date Arthritis Carcinoid tumor of stomach Gall stones GERD (gastroesophageal reflux disease) Hemorrhoids Hyperlipidemia Stomach ulcer UTI (urinary tract infection) PAST SURGICAL HISTORY Procedure Laterality Date ANESTH, SECTION CHOLECYSTECTOMY COLONOSCOPY 03/22/2016 EGD HYSTERECTOMY HX LAP REMOVE/REV MESH BLADDER WALL PAST SURGICAL HISTORY OF 04/2019 breast reconstruction SLEEVE RESECTION STOMACH Current Outpatient Medications on File Prior to Visit Medication Sig dicyclomine (BENTYL) 10 mg capsule Take 10 mg by mouth before meals and at bedtime. sucralfate (CARAFATE) 1 gram tablet Take 1 tablet by mouth four times daily. mgfvvz-cqyzkyut-hkfhkkl (CREON) 36,000-114,000- 180,000 unit delayed release capsule Take 1 capsuleby mouth four times daily. bnyndd-xjihbhyc-liqmlki (CREON 12) 12,000-38,000 -60,000 unit delayed release capsule Ykcegb-Khzctxiy-Hrdnamv (Creon) 12,000-38,000 -60,000 unit Capsule,Delayed Release(Dr/Ec) Active 1 CAP PO As Directed October 02, 2020 11:43am buPROPion XL (WELLBUTRIN XL) 150 mg 24 hr tablet Take 150 mg by mouth once daily. magnesium oxide (MAG-OX) 400 mg (241.3 mg magnesium) tablet Take 1 tablet by mouth twice daily. rosuvastatin (CRESTOR) 10 mg tablet Take 10 mg by mouth daily at bedtime. L.acid/B.bifidum/B.animal/FOS (PROBIOTIC COMPLEX ORAL) Take by mouth. simethicone, chewable (MYLICON) 80 mg chewable tablet Take 1 tablet by mouth every 6 hours as needed for up to 240 doses. valACYclovir (VALTREX) 500 mg tablet 500 mg. traZODone (DESYREL) 50 mg tablet Take 100 mg by mouth daily at bedtime. Allergies: Iodinated Contrast * Hives Iodine Hives Nubain [Nalbuphine * Unknown Review of Systems Constitutional: Negative for chills and fever. HENT: Negative for hearing loss and trouble swallowing. Eyes: Negative for visual disturbance. Respiratory: Negative for cough and shortness of breath. Cardiovascular: Negative for chest pain and palpitations. Gastrointestinal: Negative for abdominal distention, abdominal pain, blood in stool, constipation, diarrhea, nausea and vomiting. Genitourinary: Negative for dysuria and frequency. Skin: Negative for pallor and rash. Neurological: Negative for dizziness, tremors, seizures and syncope. Hematological: Does not bruise/bleed easily. BP 125/78 Pulse 88 Resp 17 Ht 154.9 cm (5' 1 ) Wt 85.7 kg (189 lb) SpO2 98% BMI 35.71 kg/m Physical Exam Constitutional: General: She is not in acute distress. HENT: Mouth/Throat: Pharynx: Oropharynx is clear. Eyes: Conjunctiva/sclera: Conjunctivae normal. Cardiovascular: Rate and Rhythm: Normal rate and regular rhythm. Pulmonary: Effort: Pulmonary effort is normal. Breath sounds: Normal breath sounds. Abdominal: General: Bowel sounds are normal. Palpations: Abdomen is soft. Musculoskeletal: General: No swelling. Skin: General: Skin is warm and dry. Coloration: Skin is not jaundiced. Neurological: Mental Status: She is alert. Mental status is at baseline. ASSESSMENT/PLAN: 51 y/o female for followup. Symptoms of gastroenteritis and peptic ulcer disease have resolved. Biopsies negative. Continue Nexium. Followup as needed. 1. Gastroenteritis - ICD9: 558.9, ICD10: K52.9 (primary diagnosis) - resolved after course of antibiotics, continue to monitor 2. Peptic ulcer disease - ICD9: 533.90, ICD10: K27.9 - resolved, continue Nexium 3. History of benign carcinoid tumor of gastrointestinal tract - ICD9: V12.79, ICD10: Z86.012 - no evidence of recurrence, continue routine followup Naty Booker Jr. documented [facility]* Encounter Date Diagnosis Assessment Notes Treatment Notes Treatment Clinical Notes Mar, Obstructive sleep apnea (ICD-10 - G47.33) [employer] Other 10-31-2022 Instructions* Patient Instructions* Annemarie Judd MD - 03/08/2022 8:02 PM EDT Continue sucralfate. RTC in 6 months - labs 1 week ahead documented in this encounterC[facility]10-27[facility] History of Present illness Narrative* Annemarie Judd MD - 03/04/2022 7:54 PM EDT Images from the original note were not included. AMBULATORY TELEPHONE VISIT Hank Liu has consented to this telephone encounter. Persons Present: patient Chief Complaint/Reason: carcinoid , abdominal pain HPI: Hank is 51 and I called to check on improvement insymptoms. Creon didn't help. She was found to have several ulcers on EGD and is on acid suppressive therapy with sucralfate. 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 Plan: Continue sucralfate. RTC in 6 months - labs 1 week ahead Total Time Spent: 5 minutes Annemarie Judd MD, CPE [facility]ology [facility] On[facility] Services Provided at: [place], [place] documented in this encounterC[facility]10[facility]24[facility] Miscellaneous Notes* Telephone Encounter - Heather Bey RN - 03/01/2022 2:38 PM EDT Great thank you Heather Bey RN * Telephone Encounter - Snodra Maxwell Adm Asst II - 03/01/2022 2:21 PM EDT Faxed letter to patient's employer per below. Sondra Alissa Adm Asst II * Telephone Encounter - Dena Shrestha Pss - 03/01/2022 1:50 PM EDT Patient would like letter faxed toher employer at [employer] fax#[phone]. * Telephone Encounter - Heather Bey RN - 03/01/2022 12:11 PM EDT Images from the original note were not included. Ok for off work through Tuesday. Naty Booker Jr., DO You routed conversation to Naty Booker Jr., DO 2 hours ago (10:06 AM) You 2 hours ago (10:06 AM) JN Hank Brian is calling asking for extension of being of work. Could you please let me know what length of time you are comfortable with? We'll send letter once established. Thank you Heather Bey RN Pt is aware of the results and recommendations per Dr. Booker and states understanding. She is currently on BID Nexium. Sondra, can you please formulate a note per Dr. Booker allowing this pt to be off work until , returning 03/04. Pt is going to call back and leave fax number info for her employer. If it comes to my line I will forward to you. Thank you Heather Bey RN * Telephone Encounter - Heather Bye RN - 03/01/2022 12:11 PM EDT ----- Message from Naty Booker Jr., DO sent at 02/28/2022 1:55 PM EDT ----- Ulcers noted. Maintain Carafate, dicyclomine, and Nexium. My increase Nexium to 40 mg bid if still with symptoms. Followup office. Naty Booker Jr., DO * Telephone Encounter - Heather Bey RN - 03/01/2022 10:04 AM EDT Hank Brian is calling asking for extension of being of work. Could you please let me know what length of time you are comfortable with? We'll send letter once established. Thank you Heather Bey RN * Telephone Encounter - Sadia Vee Ma - 03/01/2022 9:11 AM EDT Pt is requesting a return to work letter for Tuesday03-08-22 Pt states she had a procedure last week, and had found several ulcers Pt is not feeling well And would like a work excuse documented in this encounterC[facility]10[facility] History of Past illness Narrative* Problem Noted Date Resolved Date Carcinoid tumor of stomach 02/25 documented as of this encounter (statuses as of 03/01/2022) [facility] History of Past illness Narrative* Problem Noted Date Resolved Date Carcinoid tumor of stomach 02/25 documented as of this encounter (statuses as of 03/09/2022) [facility] History of Past illness Narrative* Problem Noted Date Resolved Date Carcinoid tumor of stomach 02/25 documented as of this encounter (statuses as of 03/12/2022) [address]20-2022 History of Past illness Narrative* Problem Noted Date Resolved Date Carcinoid tumor of stomach 02/25 documented as of this encounter (statuses as of 03/25/2022) [facility] History of Past illness Narrative* Problem Noted Date Resolved Date Carcinoid tumor of stomach 02/25 documented as of this encounter (statuses as of 07/09/2022) [facility] History of Past illness Narrative* Problem Noted Date Resolved Date Carcinoid tumor of stomach 02/25 documented as of this encounter (statuses as of 07/14/2022) [facility] History of Past illness Narrative* Problem Noted Date Resolved Date Carcinoid tumor of stomach 02/25 documented as of this encounter (statuses as of 07/17/2022) [facility] History of Past illness Narrative* Problem Noted Date Resolved Date Carcinoid tumor of stomach 02/25 documented as of this encounter (statuses as of 07/21/2022) [facility] History of Past illness Narrative* Problem Noted Date Resolved Date Carcinoid tumor of stomach 02/25 documented as of this encounter (statuses as of 07/22/2022) [facility] Nurse Note* April Velez, RN - 02/25/2022 1:46 PM EDT POST OP LEARNING RESPONSE INSTRUCTION PROVIDED TO: Patient and Significant Other METHOD OF INSTRUCTION: Written instruction - handouts Verbal instruction PATIENT / FAMILY RESPONSE: Verbalizes understanding of: INFECTION MANAGEMENT- Signs and symptoms of an infection and importance of contacting the physician POST-PROCEDURE INSTRUCTIONS-Correct actions to take to reduce post procedure complications WORSENING CONDITION-Signs and symptoms of a worsening condition that warrant a call to the physician FOLLOW-UP PLAN: Patient instructed to call with any further issues SUPPLEMENTAL MATERIAL: Post sedation instructions given Procedure discharge instructions REFERRAL (RECOMMENDATION): None Electronically Signed By: April Velez RN In Department: AMBULATORY SURGERY documented in this encounterC[facility]10-20-[facility] History and physical note * Naty Booker Jr., DO - 02/25/2022 1:00 PM EDT HISTORY AND PHYSICAL EXAMINATION SERVICE DATE: 02/25/2022 SERVICE TIME: 12:58 PM Chief Complaint: abd pain HPI:This is a 51 year old female who presents with with recent gastroenteritis, known history of carcinoid of the stomach in remission, presenting with generalized abd pain, poor oral intake, nasuea. PAST MEDICAL HISTORY Diagnosis Date Arthritis Carcinoid tumor of stomach Gall stones GERD (gastroesophageal reflux disease) Hemorrhoids Hyperlipidemia Stomach ulcer UTI (urinary tract infection) PAST SURGICAL HISTORY Procedure Laterality Date ANESTH, SECTION CHOLECYSTECTOMY COLONOSCOPY 03/22/2016 EGD HYSTERECTOMY HX LAP REMOVE/REV MESH BLADDER WALL PAST SURGICAL HISTORY OF 04/2019 breast reconstruction SLEEVE RESECTION STOMACH FAMILY HISTORY Problem Relation Age of Onset Diabetes Mother Colon Cancer Mother 55 detected on autopsy Aneurysm Mother 55 aortic Heart disease Father Hyperlipidemia Father Stroke Father Cancer Brother 48 kidney Cancer Brother spinal cord Social History Tobacco Use Smoking status: Some Days Smokeless tobacco: Never Vaping Use Vaping Use: Never used Substance Use Topics Alcohol use: Yes Drug use: No (Not in a hospital admission) ALLERGIES Allergen Reactions Iodinated Contrast * Hives Iodine Hives Nubain [Nalbuphine * Unknown COMPLETE REVIEW OF SYSTEMS: GENERAL: No weight loss, malaise or fevers RESPIRATORY: Negative for cough, hemoptysis, wheezing, COPD, dyspnea or shortness of breath CARDIOVASCULAR: Negative for chest pain, leg swelling, hypertension, CHF or palpitations GI: Positive for abdominal discomfort generalized, nausea intermittent BP 164/78 Pulse 79 Temp (Src) 98 (Temporal) Resp 16 SpO2 97% O2 Therapy: Room Air PHYSICAL EXAM: Physical Exam Performed: GENERAL: Alert, no distress, cooperative LUNGS: Lungs clear to auscultation, Good diaphragmatic excursion CARDIAC: Normal S1 and S2; no rubs, murmurs, or gallops ABDOMEN: Positive findings: tenderness: moderate location: generalized EXTREMITIES: Extremities normal, no deformities, edema, clubbing or skin discoloration. Good capillary refill., No ulcers (R10.84) Generalized abdominal pain Plan: EGD DIAGNOSTIC, EGD DIAGNOSTIC (K52.9) Gastroenteritis Plan: EGD DIAGNOSTIC, EGD DIAGNOSTIC (D3A.092) Benign carcinoid tumor of stomach Plan: EGD DIAGNOSTIC, EGD DIAGNOSTIC (E66.9) Obesity (BMI 35.0-39.9 without comorbidity) (R11.2, Z98.890) PONV (postoperative nausea and vomiting) (G47.33) DARNELL (obstructive sleep apnea) SIGNATURE: Naty Booker Jr., DO PATIENT NAME: Hank Liu DATE: February 25, 2022 TIME: 12:58 PM PAGER/CONTACT #: documented in this encounterC[facility]10-19-[facility]22 Miscellaneous Notes* Telephone Encounter - Reny Killian RN - 02/24/2022 9:19 AM EDT Called patient to review instructions for EGD scheduled 03/01/2022. Patient verbalized that she is in a great deal of pain and has not eaten solid food in 4 days. Patient stated that she does not want to go to ED and wonders if she can have EGD sooner. Scheduling contacted. Patient's procedure moved to 02/25/[address] Booker. Patient encouraged to go to ED if symptoms persist or worsen. Patient verbalized understanding. Patient given my contact information for further questions, if needed. documented in this encounterC[facility]10-18-[facility]22 Miscellaneous Notes* Telephone Encounter - Heather Bey RN - 02/23/2022 4:38 PM EDT Thank you Neelam. Heather Bey RN * Telephone Encounter - Indu Gonzalez - 02/23/2022 3:45 PM EDT Spoke to patient she is scheduled for egd on 03/01 at * Telephone Encounter - Sondra Matos Asst II - 02/23/2022 1:37 PM EDT EOH, per below we need this patient scheduled for an EGD at [facility] with Dr. Booker. Can you please find a spot soon for this patient? Thank you, Sondra Alissa Adm Asst II * Telephone Encounter - Heather Bey RN - 02/23/2022 11:36 AM EDT Sondra, this pt was seen by Dr. Booker today and he wants pt to have EGD at [facility]. The PSS team who is scheduling at [facility] says he is scheduling out to May. He states he has hold spots. How do we handle this? Do you know how to access these openings? Please let me know as soon as you can what the plan is for add on's. Thank you Heather Bey RN documented in this encounterC[facility]10[facility] History of Past illness Narrative* Problem Noted Date Resolved Date Generalized abdominal pain 02/23/202207/30 Carcinoid tumor of stomach 02/25 documented as of this encounter (statuses as of 08/03/2022) [facility] of Past illness Narrative* Problem Noted Date Resolved Date Generalized abdominal pain 02/23/202207/30 Carcinoid tumor of stomach 02/25 documented as of this encounter (statuses as of 08/03/2022) [facility] of Past illness Narrative* Problem Noted Date Resolved Date Generalized abdominal pain 02/23/202207/30 Carcinoid tumor of stomach 02/25 documented as of this encounter (statuses as of 08/13/2022) [facility] of Past illness Narrative* Problem Noted Date Resolved Date Generalized abdominal pain 02/23/202207/30 Carcinoid tumor of stomach 02/25 documented as of this encounter (statuses as of 08/27/2022) [facility] of Past illness Narrative* Problem Noted Date Resolved Date Generalized abdominal pain 02/23/202207/30 Carcinoid tumor of stomach 02/25 documented as of this encounter (statuses as of 10/25/2022) [facility] of Past illness Narrative* Problem Noted Date Resolved Date Generalized abdominal pain 02/23/202207/30 Carcinoid tumor of stomach 02/25 documented as of this encounter (statuses as of 11/11/2022) [facility] of Past illness Narrative* Problem Noted Date Diagnosed Date Resolved Date Generalized abdominal pain 02/23/2022 0 07/30/2022 Carcinoid tumor of stomach 1 documented as of this encounter (statuses as of 12/03/2022) [facility] of Past illness Narrative* Problem Noted Date Diagnosed Date Resolved Date Generalized abdominal pain 02/23/2022 0 07/30/2022 Carcinoid tumor of stomach 1 documented as of this encounter (statuses as of 12/17/2022) [facility] of Past illness Narrative* Problem Noted Date Diagnosed Date Resolved Date Generalized abdominal pain 02/23/2022 0 07/30/2022 Carcinoid tumor of stomach 1 documented as of this encounter (statuses as of 03/14/2023) [facility] of Past illness Narrative* Problem Noted Date Diagnosed Date Resolved Date Generalized abdominal pain 02/23/2022 0 07/30/2022 Carcinoid tumor of stomach 1 documented as of this encounter (statuses as of 03/15/2023) [facility] of Past illness Narrative* Problem Noted Date Diagnosed Date Resolved Date Generalized abdominal pain 02/23/2022 0 07/30/2022 Carcinoid tumor of stomach 1 documented as of this encounter (statuses as of 03/16/2023) [facility] of Past illness Narrative* Problem Noted Date Diagnosed Date Resolved Date Generalized abdominal pain 02/23/2022 0 07/30/2022 Carcinoid tumor of stomach 1 documented as of this encounter (statuses as of 04/22/2023) [facility] of Past illness Narrative* Problem Noted Date Diagnosed Date Resolved Date Generalized abdominal pain 02/23/2022 0 07/30/2022 Carcinoid tumor of stomach 1 documented as of this encounter (statuses as of 06/30/2023) [facility] of Past illness Narrative* Problem Noted Date Diagnosed Date Resolved Date Generalized abdominal pain 02/23/2022 0 07/30/2022 Carcinoid tumor of stomach 1 documented as of this encounter (statuses as of 07/01/2023) [facility] of Past illness Narrative* Problem Noted Date Diagnosed Date Resolved Date Generalized abdominal pain 02/23/2022 0 07/30/2022 Carcinoid tumor of stomach 1 documented as of this encounter (statuses as of 07/01/2023) [facility] of Past illness Narrative* Problem Noted Date Diagnosed Date Resolved Date Generalized abdominal pain 02/23/2022 0 07/30/2022 Carcinoid tumor of stomach 1 documented as of this encounter (statuses as of 07/30/2023) [facility] of Past illness Narrative* Problem Noted Date Diagnosed Date Resolved Date Generalized abdominal pain 02/23/2022 0 07/30/2022 Carcinoid tumor of stomach 1 documented as of this encounter (statuses as of 08/01/2023) [facility] illness Narrative* Problem Noted Date Diagnosed Date Resolved Date Generalized abdominal pain 02/23/2022 0 07/30/2022 Carcinoid tumor of stomach 1 documented as of this encounter (statuses as of 08/11/2023) [facility] illness Narrative* Problem Noted Date Diagnosed Date Resolved Date Generalized abdominal pain 02/23/2022 0 07/30/2022 Carcinoid tumor of stomach 1 documented as of this encounter (statuses as of 08/11/2023) [facility] illness Narrative* Problem Noted Date Diagnosed Date Resolved Date Generalized abdominal pain 02/23/2022 0 07/30/2022 Carcinoid tumor of stomach 1 documented as of this encounter (statuses as of 08/12/2023) [facility] of Past illness Narrative* Problem Noted Date Diagnosed Date Resolved Date Generalized abdominal pain 02/23/2022 0 07/30/2022 Carcinoid tumor of stomach 1 documented as of this encounter (statuses as of 08/21/2023) [facility] of Past illness Narrative* Problem Noted Date Diagnosed Date Resolved Date Generalized abdominal pain 02/23/2022 0 07/30/2022 Carcinoid tumor of stomach 1 documented as of this encounter (statuses as of 08/23/2023) [facility] of Past illness Narrative* Problem Noted Date Diagnosed Date Resolved Date Generalized abdominal pain 02/23/2022 0 07/30/2022 Carcinoid tumor of stomach 1 documented as of this encounter (statuses as of 08/24/2023) [facility] History of Present illness Narrative* Naty Booker Jr., DO - 02/23/2022 11:00 AM EDT Chief complaint Patient presents with: ER F/U: [facility] ER on 02/21/22 Onset of symptoms was Tuesday, patient states she was having muscle spasms in her stomach, burning sensation and nausea. ER wanted patient to follow up with Gastro. White blood count was high, and shehad blood in her urine. Diagnosed 3 kidney stones in ER. Abdominal Pain: Pain in mid abdomen, patient reports bloating and burning in esophagus and throat. Medication from ER is helping some. HPI: Hank Liu, 51 year old female, is a presents in the office today for recent ER visit at [facility]. She is well known to me with history of carcinoid of the stomach diagnosed 8 yrs ago. Followup scopes have been negative for recurrence. Last EGD and colonoscopy were July 2021. She is presenting today with generalized abd pain, recent diarrhea, bloating, and nausea. She was seen at [facility] ER undergoing CT scan and labs. Gastroenteritis was noted. Dicyclomine was started but limited benefit thus far. Past GI workup: 02/22/22 CT abd/pelvis was done for Abdominal pain and diarrhea MILD BILIARY PROMINENCE, PROBABLY SECONDARY TO PREVIOUS CHOLECYSTECTOMY. RIGHT NEPHROLITHIASIS. NO OBSTRUCTIVE UROPATHY. POSSIBLE WALL THICKENING OF THE GASTRIC ANTRUM. NONSPECIFIC FLUID CONTAINING SMALL BOWEL AND RIGHT COLON. THIS MAY BE ENTERITIS. MILD DIVERTICULOSIS. 07/31/21 EGD/colonoscopy was done per Dr. Naty Booker Abdominal pain, bloating, history of carcinoid, family history of colon cancer (Report itself is no viewable but path is noted below) A. Stomach, random biopsy: - Mild to moderate chronic inactive gastritis - Negative for H. pylori microorganisms - No evidence of neuroendocrine tumor B. Colon, random biopsies: - Colonic mucosa showing no specific pathologic changes - Small lymphoid aggregates - Negative for microscopic colitis 07/06/21 CT abd/pelvis was done for Abdominal pain and distention, with results as follows: 1. No acute abdominal or pelvic abnormality. 2. Mild biliary dilatation, likely physiologic and related to cholecystectomy. 3. Right nephrolithiasis. Last labs as follows: Collected: 02/22/2022 5:30 AM Status: F Source: [facility] REPOSITORY TYPE CODE TESTS RESULT OUT OF RANGE REFERENCE UNITS LAB TP Total Protein 7.2 Normal 6.1-7.9 g/dL LAB ALB Albumin Level 4.1 Normal 3.2-5.5 g/dL LAB GLOB Globulin 3.1 g/dL LAB AGRATIO Albumin/Globulin Ratio 1.3 LAB BILIT Bilirubin,Total 0.6 Normal 0.3-1.2 mg/dL LAB BILID Bilirubin,Direct < 0.1 Normal 0.0-0.4 LAB BILII Bilirubin,Indirect Test not performed LAB AST Aspartate Amino Transferase 30 Normal 10-42 U/L LAB ALT Alanine Aminotransferase 19 Normal 10-60 U TESTS RESULT OUT OF RANGE REFERENCE UNITS LAB WBC White Blood Count 7.4 Normal 3.8-11.6 10*3/uL LAB UNWBC Uncorrected WBC 7.4 Normal 4.5-11.0 10*3/uL LAB RBC Red Blood Count 4.69 Normal 3.60-5.00 10*6/uL LAB HGB Hemoglobin 13.5 Normal 11.8-15.4 g/dL LAB HCT Hematocrit 40.5 Normal 34.0-46.4 % LAB MCV Mean Corpuscular Volume 86.4 Normal 80-100 fL LAB MCH Mean Corpuscular Hemoglobin 28.8 Normal 24.7-34.3 pg LAB MCHC Mean Corpuscular HGB Conc 33.3 Normal 32.0-35.0 g/dL LAB RDW Red Cell Distribution Width 14.2 Normal 11.9-15.3 % LAB PLT Platelet Count 271 Normal 150-450 10*3/uL LAB MPV Mean Platelet Volume 7.6 Normal 6.3-10.7 fL LAB BUN Blood Urea Nitrogen 9 Normal 9-23 mg/dL LAB CREATT Creatinine 0.63 Normal 0.44-1.03 mg/dL LAB GFRe Estimated GFR (Non- Am > 60 LAB GFReAA Estimated GFR ( [place] > 60 Result Comment: GFR estimated reference range: According to KDOQI guidelines, <60 ml/min/1.73m2 is sufficient to diagnose a patient with chronic kidney disease. LAB NA Sodium 137 Normal 136-146 mmol/L LAB K Potassium 4.0 Normal 3.5-5.1 mmol/L LAB CL Chloride 105 Normal 95-114 mmol/L LAB CO2 Carbon Dioxide 25.6 Normal 22.0-30.0 mmol/L LAB GAP Anion Gap 10.4 Normal 6.0-15.0 LAB CA Calcium 9.5 Normal 8.2-10.2 mg/dL LAB CRCLPHA Creatinine Clr Calc Pharmacy 101.48 PAST MEDICAL HISTORY Diagnosis Date Arthritis Carcinoid tumor of stomach Gall stones GERD (gastroesophageal reflux disease) Hemorrhoids Hyperlipidemia Stomach ulcer UTI (urinary tract infection) PAST SURGICAL HISTORY Procedure Laterality Date ANESTH, SECTION CHOLECYSTECTOMY COLONOSCOPY 03/22/2016 EGD HYSTERECTOMY HX LAP REMOVE/REV MESH BLADDER WALL PAST SURGICAL HISTORY OF 04/2019 breast reconstruction 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 rnoebu-mtzdtype-kybwgzk (CREON 12) 12,000-38,000 -60,000 unit delayed release capsule Jfdezn-Qoaixrjh-Pgtdikx (Creon) 12,000-38,000 -60,000 unit Capsule,Delayed Release(Dr/Ec) Active 1 CAP PO As Directed October 02, 2020 11:43am buPROPion XL (WELLBUTRIN XL) 150 mg 24 hr tablet Take 150 mg by mouth once daily. magnesium oxide (MAG-OX) 400 mg (241.3 mg magnesium) tablet Take 1 tablet by mouth twice daily. rosuvastatin (CRESTOR) 10 mg tablet Take 10 mg by mouth daily at bedtime. L.acid/B.bifidum/B.animal/FOS (PROBIOTIC COMPLEX ORAL) Take by mouth. simethicone, chewable (MYLICON) 80 mg chewable tablet Take 1 tablet by mouth every 6 hours as needed for up to 240 doses. valACYclovir (VALTREX) 500 mg tablet 500 mg. traZODone (DESYREL) 50 mg tablet Take 100 mg by mouth daily at bedtime. No current facility-administered medications on file prior to visit. Allergies: Iodinated Contrast * Hives Iodine Hives Nubain [Nalbuphine * Unknown Review of Systems Constitutional: Positive for fatigue. Negative for chills and fever. HENT: Negative for hearing loss, nosebleeds, tinnitus and trouble swallowing. Eyes: Negative for visual disturbance. Respiratory: Negative for cough, shortness of breath and wheezing. Cardiovascular: Negative for chest pain and palpitations. Gastrointestinal: Positive for abdominal distention, abdominal pain, diarrhea and nausea. Negative for blood in stool, constipation and vomiting. Endocrine: Negative for polyphagia. Genitourinary: Negative for dysuria, frequency and hematuria. Musculoskeletal: Negative for arthralgias and joint swelling. Skin: Negative for pallor and rash. Neurological: Negative for dizziness, tremors, seizures, syncope and headaches. Hematological: Does not bruise/bleed easily. BP 121/83 Pulse 66 Ht 154.9 cm (5' 1 ) Wt 88.5 kg (195 lb) SpO2 95% BMI 36.84 kg/m Physical Exam Constitutional: General: She is not in acute distress. HENT: Mouth/Throat: Pharynx: Oropharynx is clear. Eyes: Conjunctiva/sclera: Conjunctivae normal. Cardiovascular: Rate and Rhythm: Normal rate and regular rhythm. Pulmonary: Effort: Pulmonary effort is normal. Breath sounds: Normal breath sounds. Abdominal: General: Bowel sounds are normal. There is mild distension. Palpations: Abdomen is soft. Tenderness: There is generalized abdominal tenderness. There is no guarding or rebound. Musculoskeletal: General: No swelling. Skin: General: Skin is warm and dry. Coloration: Skin is not jaundiced. Neurological: Mental Status: She is alert. Mental status is at baseline. ASSESSMENT/PLAN: 1. Gastroenteritis - ICD9: 558.9, ICD10: K52.9 (primary diagnosis) - SUCRALFATE 1 GRAM TABLET - CIPROFLOXACIN 250 MG TABLET - EGD DIAGNOSTIC 2. Generalized abdominal pain - ICD9: 789.07, ICD10: R10.84 - maintain dicyclomine - EGD DIAGNOSTIC 3. Benign carcinoid tumor of stomach - ICD9: 209.63, ICD10: D3A.092 - EGD DIAGNOSTIC 51 y/o female with acute gastroenteritis, question bacterial, start Cipro. Start Carafate for gastroenteritis. Maintain dicyclomine for abd pain. Proceed with EGD for followup gastrenteritis and history of carcinoid. Naty Booker Jr, DO documented in this encounterC[facility] Miscellaneous Notes* Telephone Encounter - Annemarie Judd MD - 02/19/2022 1:35 PM EDT Corrected and re-sent thanks * Telephone Encounter - Melissa Finch RD - 02/19/2022 1:23 PM EDT Sorry, I see I made that a little confusing. It should be 1 capsule 4 times per day. Sorry again and thanks, Melissa Finch, MS, RDN, LD * Telephone Encounter - Dhara Vargas APRN.PHLEBOTOMY SERVICES TECHNICIAN - 02/19/2022 1:10 PM EDT The following approved medication requests have been transmitted electronically. Requested Prescriptions Signed Prescriptions Disp Refills iwpvms-ysxvdjjb-neygvbt (CREON) 36,000-114,000- 180,000 unit delayed release capsule 1440 capsule 1 Sig: Take 4 capsules by mouth four times daily. Authorizing Provider: DHARA VARGAS APRN.PHLEBOTOMY SERVICES TECHNICIAN * Telephone Encounter - Melissa Finch RD - 02/19/2022 12:45 PM EDT Met with patient on Tuesday. Recommended Creon dose of 36,000 units 4x per day with meals as pt consumes 4 smaller meals vs three meals per day. Dr. Amaral/Dhara- orders for creon script pending. Please review and sign if you agree. Osman lala Thanks, Melissa Finch, MS, RDN, LD documented in this encounterC[facility] History of Present illness Narrative* Melissa Finch RD - 02/17/2022 2:35 PM EDT Oncology Nutrition Therapy Initial Assessment RECOMMENDED MALNUTRITION DIAGNOSIS: NO MALNUTRITION IDENTIFIED Nutrition Diagnosis: Altered Gastrointestinal Tract Function, related to, fat malabsorption, as evidenced by pt c/o floating stools, manning colored stools, oily/greasy stools, gas, and bloating. 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 Pt is current under surveillance. Pt denies any chewing/swallowing issues, c/o current diarrhea reporting 6-7 loose/watery stools per day. Pt c/o gas, bloating, floating stools, oily/greasy stools, and manning stools. Ptdenies any N/V/C. Pt reports hx of Vitamin B12 and D deficiency. Appetite appears to be good, Intakes are good. Pt reports consuming 3-4 meals per day and includes a variety of foods including lean protein, fruits, vegetables, whole grains, and some dairy foods. Pt states she was previously on Creon and took medication at end of each meal, but states she had stopped taking Creon several months ago. Reviewed with pt signs and symptoms of fat malabsorption and importance of restarting Creon per . Educated pt on appropriate way to take medication, with the first bite of each meal. Educated pt on diet for carcinoid syndrome as some of these foods may be contributing to her diarrhea. Encouraged pt to consider keeping a food and symptom log. Pt verbalized understanding. Thank you for allowing me to participate in the care of this pt. Readiness to Learn: Cognitive ability: Alert and oriented Motivation to learn: Interested Family support: Unable to assess - Family not present Instruction provided to: Patient Patient learns best by: Multiple Methods Factors affecting learning: None Physical limitations affecting learning: None Educational materials provided: GI Soft Diet, Diet for Carcinoid Syndrome, Pancreatic Enzymes Anthropometrics: Height: Last 1 Encounter Ht Readings: Date: Ht: 02/11/2022 154.9 cm (5' 1 ) Current weight: Last 1 Encounter Wt Readings: Date: Wt: 02/11/2022 88.8 kg (195 lb 12.8 oz) Estimated body mass index is 37 kg/m as calculated from the following: Height as of 02/11/22: 154.9 cm (5' 1 ). Weight as of 02/11/22: 88.8 kg (195 lb 12.8 oz). Resting Metabolic Rate: 1433 Weight Loss: n/a [place] Body Weight: 47.8kg Estimated kilocalorie needs: 1434 kilocalories determined by 30 kcal/kg Estimated protein needs: 48-72 grams determined by 1.0-1.5 g/kg [place] weight Estimated fluid needs: ~1500 milliliters based on 1 mL per kcal (unless otherwise noted) Nutrition Focused Physical Exam: Unable to perform exam due to potential for patient discomfort (physical/emotional), will re-attempt during reassessment. Potential Signs of Inflammation: chronic condition Allergies: Iodinated Contrast Media, Iodine, and Nubain [Nalbuphine Hcl] Medications: Current Outpatient Medications Medication Sig Dispense Refill grdifi-wmatnpyr-ibidvaq (CREON 12) 12,000-38,000 -60,000 unit delayed release capsule Xtnvwl-Tzaosaaf-Xvhojbx (Creon) 12,000-38,000 -60,000 unit Capsule,Delayed Release(/Ec) Active 1 CAP PO As Directed October 02, 2020 11:43am 250 capsule 3 buPROPion XL (WELLBUTRIN XL) 150 mg 24 hr tablet Take 150 mg by mouth once daily. magnesium oxide (MAG-OX) 400 mg (241.3 mg magnesium) tablet Take 1 tablet by mouth twice daily. rosuvastatin (CRESTOR) 10 mg tablet Take 10 mg by mouth daily at bedtime. L.acid/B.bifidum/B.animal/FOS (PROBIOTIC COMPLEX ORAL) Take by mouth. simethicone, chewable (MYLICON) 80 mg chewable tablet Take 1 tablet by mouth every 6 hours as needed for up to 240 doses. 120 tablet 1 valACYclovir (VALTREX) 500 mg tablet 500 mg. traZODone (DESYREL) 50 mg tablet Take 100 mg by mouth daily at bedtime. No current facility-administered medications for this visit. 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 [place] pharmacist notified and verbalizes understanding. Unable to place script on hold due to missing information. Will cancel current script. Pt notified of the above. Informed pt that we would send a new prescription once she is seen per aSchi next week. Pt verbalizes understanding and agrees w/ plan. Andra Wolff RN * Telephone Encounter - Melissa Finch RD - 02/12/2022 12:57 PM EDT Images from the original note were not included. I really would need to assess the patient and her symptoms before making a recommendation on the dose and specific instructions. I see she has an appointment with me on Feb 17. Is this something that can wait until then? Melissa Finch, MS, RDN, LD Annemarie Judd MD You; Andra Wolff RN 58 minutes ago (11:57 AM) [place] - can you help me on this one? I didn't prescribe her creon originally.. * Telephone Encounter - Andra Wolff RN - 02/12/2022 9:41 AM EDT [facility]. Currently ordered as 1 capsule by mouth as directed. Pharmacy needs specific frequency. Please clarify. Thanks! Andra Wolff RN * Telephone Encounter - Carlene Mei RN - 02/11/2022 4:47 PM EDT [facility] calling for clarification on sig on Creon script. You cannot order it as directed they need instructions. Please advise. Naseem Mei RN documented in this encounterC[facility]10-06-[facility] Instructions* Patient Instructions* Annemarie Judd MD - 02/11/2022 2:59 PM EDT Add CREON more regularly Floor Cleaner consult Consider imaging if symptoms don't resolve Restart Metformin Call in 3 weeks documented in this encounterC[facility]10[facility] History of Present illness Narrative* Annemarie Judd MD - 02/11/2022 2:45 PM EDT Images from the original note were not included. NAME: Hank Liu CLINIC NO.: [id number] DATE OF SERVICE: February 11, 2022 Some elements in this clinic note that are critical to medical decision making have been carefully reviewed and included from a prior clinic note dated: June 25, 2021 Additional Clinicians involved in Hank Liu's care: Trey Brown DO ASSESSMENT/PLAN: History of carcinoid of the upper GI tract. Resected in 2011 without adjuvant therapy. We don't have all the records and she is not clear on the details. Currently in surveillance. Has chronic diarrhea. Octrescan 10/24/17 did not identify recurrent or metastatic disease. Elevating chromogranin A in November 2018 prompted additional workup. Now with abdominal discomfort that is progressing, will get imaging to assess. 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 She called in regarding continued abdominal bloating and also bilateral arm pain Sleep apnea - on CPAP for past month - feeling like she's sleeping better Borderline DMII started metformin and then stopped it Will encourage to restart. Take creon more regularly, oncology nutrition consult Exam - abdomen is full, obese. Reproducible pain at multiple points along ribs as well as chest along sternum. Arms ache. Many of her pain issues may be related to her gain in weight in face of her prior abdominoplasty.. Updated Visit, June 25, 2021: She feels intermittent inflammation and discomfort around her rib cage associated with recurring feelings of bloating Had COVID in May - now the swellling in her abdomen is intensifying although it was occurring prior to COVID. Work at [employer] [facility] and after a long day she has the most symptoms Palpitations for quite some time - now has an implanted loop recorder. Has a lower abdominal ventral hernia that is palpable on exam today. Updated Visit, July 25, 2020: Hank is 50 yo and ad a history of resected carcinoid but was complaining of persisting abdominal pain. Ct scan was obtained and reviewed with her. No evidence of recurrence was noted. Her chromogranin was not elevated. She still has pain in the sides of her ribs for an unknown etiology, but felt mu sculoskelatal in nature. She had no other complaints and was relieved to know her scans were clear.Abdominal pain comes and goes and as mostly resolved. However, she has a kidney stone that has grown but is non-obstructing. Updated Visit, June 30, 2020: Stomach is keeping her up. She had recent scans in [facility]. We will discover these and call her next week to determine further testing. She has had no evidence of recurrence for at least 8 years following her resection. Updated Visit, January 07, 2020: Hank is 49 years old and returns in follow-up as a patient in transition from her previous oncologist. She reports that a couple of months ago was feeling progressively fatigued and weak she describes a sensation where she gets a vibration in the top of her head. This is currently being worked up by the vascular physicians. She was working at [employer] but [place] in [place] because she was not able to keep up with the heavy lifting. She tries to be very active and has been having trouble with fatigue. She is asymptomatic from a carcinoid perspective. It appears that she is quite overwhelmed with physician work-up and office visits at this time and I suggested that, since she has been completely asymptomatic for almost 8 years since her resection that we can decrease the amount of visits as well as avoid additionalsurveillance CT scans or laboratories. Patient's disease was originally identified in 2011 and underwent resection fully following. She used to have symptoms of diarrhea related to carcinoid but has been asymptomatic. Her chromogranin A has been unreliable with respect to disease follow-up. She has had multiple scans that show no evidence of recurrent disease. December 07, 2018 still extreme tired all the time. egd and colonoscopy was ok with dr. Booker. dont have colonoscopy results of biopsy from egd but patient was told negative. Headaches same. Had eeg. Follows with Dr. Hall. MRI brain was normal. . \ CT of the chest abdomen and pelvis from 11/30/18 1. Several subcentimeter right-sided pulmonary nodules are identified, largest measuring 4-5 mm. The patient's history, correlation with follow-up examination in 3-6 months is recommended to assess for stability. 2. No substantial intrathoracic adenopathy is identified. 1. Several subcentimeter retroperitoneal lymph nodes are identified, none of which appear pathologically enlarged. Given the patient's history, correlation with a follow-up study to assess for stability is recommended. 2. Postoperative changes involving the abdomen and pelvis as above. June 14, 2019 ct c/a/p 06/12/[address] of the abdomen and pelvis. No gross gastric mass is visualized. No evidence ofbulky retroperitoneal or mesenteric adenopathy. 2. Nonobstructing 1-2 mm calculi in the right kidney. 3. Mild urothelial thickening involving the proximal right ureter, nonspecific. This may be infectious or inflammatory in nature. Alternatively, this could also be due to a recently passed calculus. Correlate clinically. Stable CT of the chest. Unchanged appearance of right lower lobe nodular opacities measuring up to 5 mm. No new or enlarging nodules are seen. No evidence of bulky intrathoracic adenopathy. ECOG PERFORMANCE STATUS: 1 PHYSICAL EXAMINATION: Vitals: BP 123/78 Pulse 90 Temp (Src) 97.5 (Temporal) Resp 16 Ht 5' 1 (1.55m) Wt 195 lb 12.8 oz (88.8kg) SpO2 96% BMI 37.02 kg/(m^2). Body surface area is 1.95 meters squared. General:This is an age-appropriate patient in no acute distress. Head: Atraumatic, symmetric with no lesions visible. Eyes: Pupils equally round and reactive to light, extraocular muscles intact. Neck: Supple Mouth: Mucous membranes are moist, no thrush is noted. Lungs: Clear to auscultation bilaterally with no wheezes crackles or rales. Cardiovascular: Regular rate and rhythm with no murmurs or gallops. Peripheral pulses: Normal. Gastrointestinal: Soft,non-specific tenderness in upper abdomen, normoactive bowel sounds, with no appreciable hepatosplenomegaly. Ventral hernia as noted in HPI. Musculoskeletal: No appreciable bony abnormalities or tenderness except over left lateral rib cage.And sternum Extremities: Lower extremities without edema. Neurologic: Nonfocal to gross visualization. Alert and oriented 3. Psychiatric: No evidence of inappropriate anxiety or depression. Skin: No overt rashes wounds or petechiae. ALLERGIES: ALLERGIES Allergen Reactions Iodinated Contrast * Hives Iodine Hives Nubain [Nalbuphine * Unknown MEDICATIONS: albuterol HFA (PROVENTIL HFA, VENTOLIN HFA) 90 mcg/actuation inhaler INHALE 2 PUFFS BY MOUTH EVERY FOUR HOURS NEEDED buPROPion XL (WELLBUTRIN XL) 150 mg 24 hr tablet Take 150 mg by mouth once daily. lhykzt-qttslvoa-mzarohr (CREON 12) 12,000-38,000 -60,000 unit delayed release capsule Uieust-Ixazblio-Oggranm (Creon) 12,000-38,000 -60,000 unit Capsule,Delayed Release(Dr/Ec) Active 1 CAP PO As Directed October 02, 2020 11:43am magnesium oxide (MAG-OX) 400 mg (241.3 mg magnesium) tablet Take 1 tablet by mouth twice daily. rosuvastatin (CRESTOR) 10 mg tablet Take 10 mg by mouth daily at bedtime. melatonin 5 mg tablet Take 5 mg by mouth. L.acid/B.bifidum/B.animal/FOS (PROBIOTIC COMPLEX ORAL) Take by mouth. predniSONE (DELTASONE) 50 mg Take first tablet by mouth 13 hours prior to exam time, take second tablet 7 hours prior to exam time, and take third tablet 1 hour prior to exam time. diphenhydrAMINE (BENADRYL) 50 mg capsule Take 1 capsule by mouth as directed for 1 dose. one (1) hour prior to exam. simethicone, chewable (MYLICON) 80 mg chewable tablet Take 1 tablet by mouth every 6 hours as needed for up to 240 doses. PREMARIN vaginal cream USE DIRECTED 0.5 GRAMS VAGINALLY TWICE WEEKLY AT BEDTIME WITH SMALL AMOUNT USED EXTERNALLY 2 TO 3 TIMES WEEKLY diclofenac sodium (VOLTAREN) 1 % topical gel APPLY 2 GRAMS TRANSDERMALLY FOUR TIMES A DAY temazepam (RESTORIL) 15 mg valACYclovir (VALTREX) 500 mg tablet 500 mg. terconazole (TERAZOL 7) 0.4 % vaginal cream INSERT APPLICATORFUL VAGINALLY AT BEDTIME ONCE A DAY FOR 7 DAYS iv contrast (will be provided with radiology test) CT Chest ABD/PEL-Inject, intravenously, once for1 dose.No IV access, insert saline lock prior to the beginning of sedation, infusion, injection of imaging exam. Discontinue saline lock post exam. If Pt. has a central line or IVAD, may access for administration according to line specific nursing protocol. Once exam is complete flush line and de-access according to line specific nursing protocol in the CT contrast administration guidelines link. enteric contrast (will be provided with radiology test) For CT CHESTABD/PEL W IVCON Routine order Administer, As Directed One Time Only, via Oral, Rectal, both Oral and Rectal, Enteric Tube, Stoma orIndwelling Catheter, Enteric Contrast as designated per enteric contrast guidelines iv contrast (will be provided with radiology test) CT Chest ABD/PEL-Inject, intravenously, once for1 dose.No IV access, insert saline lock prior to the beginning of sedation, infusion, injection of imaging exam. Discontinue saline lock post exam. If Pt. has a central line or IVAD, may access for administration according to line specific nursing protocol. Once exam is complete flush line and de-access according to line specific nursing protocol in the CT contrast administration guidelines link. enteric contrast (will be provided with radiology test) For CT CHESTABD/PEL W IVCON Routine order Administer, As Directed One Time Only, via Oral, Rectal, both Oral and Rectal, Enteric Tube, Stoma orIndwelling Catheter, Enteric Contrast as designated per enteric contrast guidelines iv contrast (will be provided with radiology test) CT Chest ABD/PEL-Inject, intravenously, once for1 dose.No IV access, insert saline lock prior to the beginning of sedation, infusion, injection of imaging exam. Discontinue saline lock post exam. If Pt. has a central line or IVAD, may access for administration according to line specific nursing protocol. Once exam is complete flush line and de-access according to line specific nursing protocol in the CT contrast administration guidelines link. enteric contrast (will be provided with radiology test) For CT CHESTABD/PEL W IVCON Routine order Administer, As Directed One Time Only, via Oral, Rectal, both Oral and Rectal, Enteric Tube, Stoma orIndwelling Catheter, Enteric Contrast as designated per enteric contrast guidelines iv contrast (will be provided with radiology test) MRI Brain Inject, intravenously, once for 1 dose.No IV access, insert saline lock prior to beginning of sedation, infusion, injection of imaging exam.Discontinue saline lock post exam. If Pt. has a central line or IVAD, may access for administration according to line specific nursing protocol.Once exam is complete flush line and de-access according to line specific nursing protocol in the MR contrast administration guidelines link baclofen (LIORESAL) 10 mg tablet TAKE 1 TABLET BY MOUTH TWO TIMES A DAY WITH FOOD OR MILK traZODone (DESYREL) 50 mg tablet Take 50 mg by mouth daily at bedtime. ALPRAZolam (XANAX) 0.5 mg tablet Take 0.5 mg by mouth twice daily. esomeprazole (NEXIUM) 40 mg capsule BID LABORATORY VALUES: WBC (k/uL) Date Value 02/11/2022 6.18 RBC (m/uL) Date Value 02/11/2022 4.27 Hemoglobin (g/dL) Date Value 02/11/2022 12.2 Hematocrit (%) Date Value 02/11/2022 37.1 MCV (fL) Date Value 02/11/2022 86.9 MCH (pg) Date Value 02/11/2022 28.6 MCHC (g/dL) Date Value 02/11/2022 32.9 RDW-CV (%) Date Value 02/11/2022 13.9 Platelet Count (k/uL) Date Value 02/11/2022 253 MPV (fL) Date Value 02/11/2022 9.0 Glucose (mg/dL) Date Value 02/11/2022 104 (H) BUN (mg/dL) Date Value 02/11/2022 17 Creatinine (mg/dL) Date Value 02/11/2022 0.64 Sodium (mmol/L) Date Value 02/11/2022 141 Potassium (mmol/L) Date Value 02/11/2022 4.4 Chloride (mmol/L) Date Value 02/11/2022 105 CO2 (mmol/L) Date Value 02/11/2022 28 Protein, Total (g/dL) Date Value 02/11/2022 6.9 Albumin (g/dL) Date Value 02/11/2022 4.6 Calcium, Total (mg/dL) Date Value 02/11/2022 9.7 Alkaline Phosphatase (U/L) Date Value 02/11/2022 77 Bilirubin, Total (mg/dL) Date Value 02/11/2022 0.2 AST (U/L) Date Value 02/11/2022 23 ALT (U/L) Date Value 02/11/2022 13 DIAGNOSIS: (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) (primary encounter diagnosis) Plan: CONSULT TO ONCOLOGY NUTRITION PAST MEDICAL HISTORY Diagnosis Date Arthritis Carcinoid tumor of stomach Gall stones GERD (gastroesophageal reflux disease) Hemorrhoids Hyperlipidemia Stomach ulcer UTI (urinary tract infection) PAST SURGICAL HISTORY Procedure Laterality Date ANESTH, SECTION CHOLECYSTECTOMY COLONOSCOPY 03/22/2016 EGD HYSTERECTOMY HX LAP REMOVE/REV MESH BLADDER WALL PAST SURGICAL HISTORY OF 04/2019 breast reconstruction SLEEVE RESECTION STOMACH Social History Tobacco Use Smoking status: Some Days Smokeless tobacco: Never Vaping Use Vaping Use: Never used Substance Use Topics Alcohol use: Yes Drug use: No FAMILY HISTORY Problem Relation Age of Onset Diabetes Mother Colon Cancer Mother 55 detected on autopsy Aneurysm Mother 55 aortic Heart disease Father Hyperlipidemia Father Stroke Father Cancer Brother 48 kidney Cancer Brother spinal cord I spent a total of 30 minutes on the date of the service which included preparing to see the patient, [id number] patient care, completing clinical documentation, performing a medically appropriate examination, counseling and educating the patient/family/caregiver, ordering medications, tests, or p rocedures, and independently interpreting results (not separately reported). Annemarie Judd MD, CPE [facility] [place], [place] CC: Trey Brown, DO [address] [place] [address] [facility] [phone] [facility] Miscellaneous Notes* Telephone Encounter - Martha Gaspar Pss - 02/09/2022 1:03 PM EDT Spoke with patient and scheduled for due to her work schedule this was the best date for her. * Telephone Encounter - Hillary Morgan - 02/09/2022 10:19 AM EDT Lvm for patient to call back to schedule an appointment with TIA. Hillary Morgan * Telephone Encounter - Annemarie Judd MD - 02/08/2022 5:47 PM EDT She can come anytime see first then labs. * Telephone Encounter - Karla Shoemaker RN - 02/08/2022 2:56 PM EDT Pt called back and states she has had abdominal swelling/bloating for quite some time now. She also c/o bilateral arm pain; my bones just ache so badly all the time. TIA/JACKIE: Please advise on orders and appointments. Karla Shoemaker RN * Telephone Encounter - Karla Shoemaker RN - 02/08/2022 12:30 PM EDT Attempted to call pt back for additional information. Requested pt call back. Karla Shoemaker RN * Telephone Encounter - Karla Shoemaker RN - 02/08/2022 10:43 AM EDT Pt called and left a voicemail stating she has not been feeling well and would like an appt with Dr Amaral. documented in this encounterC[facility] Evaluation note* Encounter Date Diagnosis Assessment Notes Treatment Notes Treatment Clinical Notes Nov, Sleep apnea, unspecified type (ICD-10 - G47.30) Discussed a probability of obstructive sleep apnea based on her presentation, symptoms, findings, associated severe nocturnal GERD, in addition to findings on exam, we will proceed with home sleep testing and if confirmed to proceed with the positive airway pressure therapy. [employer] Other 2022 NoteHISTORY: Bone density screening COMPARISON: None available. PROCEDURE: Imaging of the lumbar spine and bilateral hips was obtained for bone density evaluation. FINDINGS: REGION BMD (g/cm??) YOUNG ADULT T-SCORE AGE-MATCHED Z-SCORE LEFT NECK 0.71 -0.6 0.3 RIGHT NECK 0.826 -0.2 0.7 LUMBAR 1.235 1.7 2.7 The mean BMD and corresponding T-score listed above indicates: Normal Bone Mass and places the patient at no significant risk for fracture. This information can serve as a baseline with which to compare future studies. Recommend follow-up exam in 2 years, sooner as clinically necessary. Comment: The T-score is the primary focus of the interpretation of a patient???s bone mineral density measurement. The T-score is the number of standard deviations and individual is above or below the mean value for a young female having normal bone mass. The WHO defines osteoporosis based on the T-score value: +1.0 to -0.9 : Normal bone mass -1.0 to -2.5 : Osteopenia and thus may be at future risk of fracture. -2.6 to -5.0 : Osteoporosis and at significantly increased risk of fracture. IMPRESSION: NORMAL BONE MASS : TWO YEAR FOLLOW-UP RECOMMENDED Report reported and signed by Ezequiel Trevino on 09/21/2021 [id number]04[facility] Miscellaneous Notes* Telephone Encounter - Valerie Stovall RN - 08/07/2021 11:08 AM EDT Patient sees you in follow up 08/14/21. She not scheduled for labs. Looks like her labs were drawn last 06/30. I f you want labs drawn please place orders and we will add her to the lab schedule. Please advise, thanks Evelyn Will forward to clerical pool documented in this encounterC[facility] History of Present illness Narrative* She is here for electrophysiology evaluation * The patient is here to discuss syncope. * Since loop recorder was implanted, she has had no events. * She is pleased with how she feels. * She is working at [employer], she may walk 8-12,000 steps per day. * See ROS, PMH, FMH, and surgical history for details. * She has worked out twice at the gym * Anxiety disorder. Medications being adjusted per patient report * Former tobacco use. Quit a few weeks ago when she found out she had plaque in her arteries. Reinforced tobacco cessation * Calcium score 97 LAD * Normal stress test * Family history of coronary disease and heart attacks in their 50s years of age. No family history of sudden cardiac , or arrhythmia. * Personal review of ECG and cardiac data reviewed * Outside records: * Device check Apr 2021 * Device implant Dec 2020 * Office visit with Dr. Arredondo December 2020 * Event monitor February 2020 * Echocardiogram February 2020 * ECG: Today.Normal sinus rhythm. Normal axis. Corrected QT interval 410 ms * Device check. Today. SJM [id number]. No events. Normal HR histogram. * Imp / Plan * Syncope, near syncope, palpitation. Negative event monitors as no symptoms during the 30-day monitoring time.s/p loop recorder * SJM [id number] loop recorder. Reviewed device check.Normal function. Ordered device checks. Monthly download and twice yearly EP OV paired with device clnic. * Hyperlipidemia. Chronic. Stable. Reviewed medications. On statin. Follows with PCP and cardiology for lipid profile and LFTs. Discussed potential adverse effect of medications * Recent discontinuing tobacco use. 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 * The patient and I and discussed the mechanism of arrhythmia, increased fluid status, how loop recorder automatically detects arrhythmias, how manually triggered events are recorded, EKG, preoperative cardiac evaluation, indications for and types of medications, discussion if and what medication refills needed, treatment options, risks, benefits, and imponderables. [place] [employer] lifestyle changes and behavioral modification discussed. All questions answered in detail. Counseling over 50% visit regarding above. Patient appreciative of care. [facility] [address] DO Work Phone: 1(790) 833-973212-14-2021 History of Present illness Narrative* She is here for electrophysiology evaluation * The patient is here to discuss syncope. * Since loop recorder was implanted, she has had no events. * She is pleased with how she feels. * She is working at [employer], she may walk 8-12,000 steps per day. * See ROS, PMH, FMH, and surgical history for details. * She has worked out twice at the gym * Anxiety disorder. Medications being adjusted per patient report * Former tobacco use. Quit a few weeks ago when she found out she had plaque in her arteries. Reinforced tobacco cessation * Calcium score 97 LAD * Normal stress test * Family history of coronary disease and heart attacks in their 50s years of age. No family history of sudden cardiac , or arrhythmia. * Personal review of ECG and cardiac data reviewed * Outside records: * Device check Apr 2021 * Device implant Dec 2020 * Office visit with Dr. Arredondo December 2020 * Event monitor February 2020 * Echocardiogram February 2020 * ECG: Today.Normal sinus rhythm. Normal axis. Corrected QT interval 410 ms * Device check. Today. SJM [id number]. No events. Normal HR histogram. * Imp / Plan * Syncope, near syncope, palpitation. Negative event monitors as no symptoms during the 30-day monitoring time.s/p loop recorder * SJM [id number] loop recorder. Reviewed device check.Normal function. Ordered device checks. Monthly download and twice yearly EP OV paired with device clnic. * Hyperlipidemia. Chronic. Stable. Reviewed medications. On statin. Follows with PCP and cardiology for lipid profile and LFTs. Discussed potential adverse effect of medications * Recent discontinuing tobacco use. 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 * The patient and I and discussed the mechanism of arrhythmia, increased fluid status, how loop recorder automatically detects arrhythmias, how manually triggered events are recorded, EKG, preoperative cardiac evaluation, indications for and types of medications, discussion if and what medication refills needed, treatment options, risks, benefits, and imponderables. [place] [employer] lifestyle changes and behavioral modification discussed. All questions answered in detail. Counseling over 50% visit regarding above. Patient appreciative of care. -[facility] [address] DO Work Phone: [phone]) [phone] Evaluation note* Encounter Date Diagnosis Assessment Notes Treatment Notes Treatment Clinical Notes Mar, Sore throat (ICD-10 - J02.9) Mar, Sinusitis (ICD-10 - J32.9) watch and wait d/t impending holiday, would await precipitous worsening of symptoms, high fever, or reworsening. Symptom management with cold air humidification, ocean spray nasal saline, cough suppression only if needed to promote sleep. 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 Malignant carcinoid tumor of foregut, not otherwise specified documented in this encounter [facility]* Diagnosis Malignant carcinoid tumor of stomach (HCC)- Primary Malignant carcinoid tumor of the stomach documented in this encounter [facility]* Diagnosis Malignant carcinoid tumor of stomach (HCC)- Primary Malignant carcinoid tumor of the stomach documented in this encounter [facility]* Diagnosis Gastroenteritis- Primary Other and unspecified noninfectious gastroenteritis and colitis Generalized abdominal pain Abdominal pain, generalized Benign carcinoid tumor of stomach Benign carcinoid tumor of the stomach documented [facility]* Diagnosis 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 Malignant carcinoid tumor of foregut, not otherwise specified [facility]* Diagnosis Gastroenteritis- Primary Other and unspecified noninfectious gastroenteritis and colitis Peptic ulcer disease Peptic ulcer, unspecified site, unspecified as acute or chronic, without mention of hemorrhage, perforation, or obstruction History of benign carcinoid tumor of gastrointestinal tract documented in this encounter [facility] noteNo InformationNort [employer] Other Evaluation note* Diagnosis Gastroesophageal reflux disease, unspecified whether esophagitis present- Primary [facility]* Diagnosis 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 Malignant carcinoid tumor of foregut, not otherwise specified Duodenal carcinoid syndrome (HCC) [facility] Chronic gastric ulcer without hemorrhage and without perforation- Primary [facility] Diagnosis Exocrine pancreatic insufficiency Other specified disease of pancreas [facility] Diagnosis Malignant carcinoid tumor of stomach (HCC) Malignant carcinoid tumor of the stomach [facility] Diagnosis Gastroesophageal reflux disease, unspecified whether esophagitis present [facility]* Diagnosis Exocrine pancreatic insufficiency- Primary Other specified disease of pancreas [facility] Thyroid nodule- Primary Nontoxic uninodular goiter [facility] Diagnosis Generalized abdominal pain- Primary Abdominal pain, generalized Family history of colon cancer Family history of malignant neoplasm of gastrointestinal tract Change in bowel habits Other symptoms involving digestive system Gastroesophageal reflux disease, unspecified whether esophagitis present History of benign carcinoid neoplasm of gastrointestinal tract [facility] Diagnosis Generalized abdominal pain Abdominal pain, generalized Gastroenteritis Other and unspecified noninfectious gastroenteritis and colitis Benign carcinoid tumor of stomach Benign carcinoid tumor of the stomach Obesity (BMI 35.0-39.9 without comorbidity) Obesity, unspecified PONV (postoperative nausea and vomiting) Nausea with vomiting DARNELL (obstructive sleep apnea) Obstructive sleep apnea (adult) (pediatric) Gastroenteritis Other and unspecified noninfectious gastroenteritis and colitis Generalized abdominal pain Abdominal pain, generalized Carcinoid tumor of stomach Benign carcinoid tumor of the stomach [facility]* Diagnosis Generalized abdominal pain Abdominal pain, generalized Gastroesophageal reflux disease, unspecified whether esophagitis present History of benign carcinoid neoplasm of gastrointestinal tract Family history of colon cancer Family history of malignant neoplasm of gastrointestinal tract Change in bowel habits Other symptoms involving digestive system Family history of colon cancer in mother [facility] Diagnosis 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 Exocrine pancreatic insufficiency Other specified disease of pancreas [facility] Diagnosis 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 [facility] Diagnosis Irritable bowel syndrome with both constipation and diarrhea- Primary Bloating Flatulence, eructation, and gas pain LPRD (laryngopharyngeal reflux disease) Acute laryngitis, without mention of obstruction Atherosclerosis of aorta (I70.0) Atherosclerosis of aorta [facility]* Diagnosis Thyroid nodule- Primary Nontoxic uninodular goiter Duodenal carcinoid syndrome (HCC) Gastric carcinoma (HCC) Malignant neoplasm of stomach, unspecified site documented [facility]* Diagnosis Thyroid nodule Nontoxic uninodular goiter documented [facility] this [facility] note* Diagnosis Thyroid nodule greater than or equal to 1.5 cm in diameter incidentally noted on imaging study- Primary Exocrine pancreatic insufficiency Other specified disease of pancreas Malignant carcinoid tumor of foregut (HCC) Malignant carcinoid tumor of foregut, not otherwise specified Lung nodule Solitary pulmonary nodule documented [facility] encounter [facility]* Diagnosis Onset Date Resolution Status Strep pharyngitis noneactive [facility] Work Phone: Evaluation note* Diagnosis 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 Exocrine pancreatic insufficiency Other specified disease of pancreas Malignant carcinoid tumor of foregut (HCC) Malignant carcinoid tumor of foregut, not otherwise specified Lung nodule Solitary pulmonary nodule Bloating Flatulence, eructation, and gas pain documented [facility] encounter [facility]* Diagnosis Malignant carcinoid tumor of duodenum (HCC) Malignant carcinoid tumor of the duodenum [facility]* Diagnosis Weight gain- Primary Abnormal weight gain Abdominal bloating Flatulence, eructation, and gas pain Katy's syndrome (HCC) Katy's syndrome documented [facility]* Diagnosis 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 Exocrine pancreatic insufficiency Other specified disease of pancreas Malignant carcinoid tumor of foregut (HCC) Malignant carcinoid tumor of foregut, not otherwise specified Lung nodule Solitary pulmonary nodule Bloating Flatulence, eructation, and gas pain Thyroid nodule greater than or equal to 1.5 cm in diameter incidentally noted on imaging study documented [facility] this encounter [facility]* Diagnosis Onset Date Resolution Status Strep pharyngitis noneactive Acute streptococcal pharyngitis acute Sore throat acute Allergic rhinitis noneactive BMI 37.0-37.9, adult acute History of tobacco abuse acu te Multiple pulmonary nodules a cute Obesity acute Recurrent respiratory infection acute [facility] Work Phone: Evaluation note* Diagnosis 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 documented [facility] this encounter [facility]* Diagnosis Onset Date Resolution Status Sore throat acute Allergic rhinitis noneactive BMI 37.0-37.9, adult acute History of tobacco abuse acu te Multiple pulmonary nodules a cute Obesity acute Recurrent respiratory infection acute [facility] Work Phone: Evaluation note* Diagnosis Abdominal bloating- Primary Flatulence, eructation, and gas pain FH: colon cancer Family history of malignant neoplasm of gastrointestinal tract LLQ pain Abdominal pain, left lower quadrant Constipation, unspecified constipation type documented [facility] this encounter [facility]* Diagnosis 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) Malignant carcinoid tumor of foregut, not otherwise specified Exocrine pancreatic insufficiency Other specified disease of pancreas documented [facility] this encounter [facility]* Diagnosis Abdominal bloating- Primary Flatulence, eructation, and gas pain Small intestinal bacterial overgrowth (SIBO) [facility]* Diagnosis Bloating- Primary Flatulence, eructation, and gas pain documented [facility] this encounter [facility]* Diagnosis Malignant carcinoid tumor of duodenum (HCC) Malignant carcinoid tumor of the duodenum [facility]* Diagnosis LLQ pain Abdominal pain, left lower quadrant Constipation, unspecified constipation type [facility]* Diagnosis Interstitial pulmonary disease (HCC) Postinflammatory pulmonary fibrosis [facility]* Diagnosis Malignant carcinoid tumor of duodenum (HCC) Malignant carcinoid tumor of the duodenum documented [facility] this encounter [facility]* Diagnosis Malignant carcinoid tumor of duodenum (HCC) Malignant carcinoid tumor of the duodenum documented in this encounter [facility]* Diagnosis Gastroesophageal reflux disease, unspecified whether esophagitis present DARNELL (obstructive sleep apnea) Obstructive sleep apnea (adult) (pediatric) Generalized abdominal pain Abdominal pain, generalized documented [facility] encounter [facility] Diagnosis DARNELL (obstructive sleep apnea)- Primary Obstructive sleep apnea (adult) (pediatric) Mixed hyperlipidemia (CMS/HCC) Mixed hyperlipidemia IFG (impaired fasting glucose) Gastroparesis [facility] Cervical radiculopathy- Primary Brachial neuritis or radiculitis nos History of GI tract cancer Personal history of malignant neoplasm of unspecified site in gastrointestinal tract Polyarthralgia Pain in joint, multiple sites [facility] Diarrhea, unspecified type- Primary Family history of colon cancer Family history of malignant neoplasm of gastrointestinal tract GI carcinoid tumor Benign carcinoid tumor of other sites [facility] Diagnosis Alternating constipation and diarrhea- Primary Other symptoms involving digestive system Abdominal bloating Flatulence, eructation, and gas pain FH: colon cancer Family history of malignant neoplasm of gastrointestinal tract Pelvic floor dysfunction- Primary Pelvic muscle wasting Abdominal bloating Flatulence, eructation, and gas pain FH: colon cancer Family history of malignant neoplasm of gastrointestinal tract Alternating constipation and diarrhea Other symptoms involving digestive system [facility] Diagnosis Alternating constipation and diarrhea- Primary Other symptoms involving digestive system Abdominal bloating Flatulence, eructation, and gas pain FH: colon cancer Family history of malignant neoplasm of gastrointestinal tract Pelvic floor dysfunction- Primary Pelvic muscle wasting Abdominal bloating Flatulence, eructation, and gas pain FH: colon cancer Family history of malignant neoplasm of gastrointestinal tract Alternating constipation and diarrhea Other symptoms involving digestive system [facility] Diagnosis Family history of colon cancer- Primary Family history of malignant neoplasm of gastrointestinal tract Family history of kidney cancer Family history of malignant neoplasm of kidney Malignant carcinoid tumor of duodenum (HCC) Malignant carcinoid tumor of the duodenum [facility] Diagnosis Melanocytic nevus of trunk- Primary Benign neoplasm of skin of trunk, except scrotum Melanocytic nevus of upper extremity, unspecified laterality Seborrheic keratosis Dermatofibroma Benign neoplasm of skin, site unspecified Pilar cyst of scalp Capillary angioma Nevus, non-neoplastic Lentigines [facility] GI carcinoid tumor Benign carcinoid tumor of other sites Diarrhea, unspecified type Family history of colon cancer Family history of malignant neoplasm of gastrointestinal tract [facility] Diagnosis Diarrhea due to drug- Primary Diarrhea Irritable bowel syndrome with both constipation and diarrhea Gastroparesis Gastroesophageal reflux disease with esophagitis without hemorrhage [facility] Bone pain- Primary Disorder of bone and cartilage, unspecified Abdominal swelling Abdominal or pelvic swelling, mass or lump, unspecified site Recurrent infections Unspecified infectious and parasitic diseases [facility] Diagnosis Pelvic floor tension- Primary Pelvic floor dysfunction Pelvic muscle wasting [facility] Diagnosis Recurrent infections- Primary Unspecified infectious and parasitic diseases Angioedema, initial encounter [facility] Diagnosis Pelvic floor tension- Primary [facility] Diagnosis Abdominal swelling Abdominal or pelvic swelling, mass or lump, unspecified site [facility]* Diagnosis Sore throat- Primary Acute pharyngitis Thyroid nodule Nontoxic uninodular goiter Acute recurrent streptococcal tonsillitis Streptococcal sore throat [facility]* Diagnosis Palpitations Sensation of chest pressure Shortness of breath Mixed hyperlipidemia Malignant carcinoid tumor of stomach Malignant carcinoid tumor of the stomach Abdominal bloating Flatulence, eructation, and gas pain Sleep apnea, unspecified type BMI 36.0-36.9,adult Former smoker Personal history of tobacco use, presenting hazards to health documented in this encounter [facility] Work Phone: Evaluation note* Diagnosis Strep throat- Primary Streptococcal sore throat Other fatigue Lower urinary tract symptoms Other symptoms involving urinary system [facility] Diagnosis Pelvic floor tension- Primary [facility]* Diagnosis Acute vaginitis Unspecified vaginitis and vulvovaginitis [facility] Diagnosis DARNELL (obstructive sleep apnea)- Primary Obstructive sleep apnea (adult) (pediatric) Malignant carcinoid tumor of the duodenum Gastroparesis Irritable bowel syndrome with both constipation and diarrhea IFG (impaired fasting glucose) Obesity (BMI 30.0-34.9) Mixed hyperlipidemia (CMS/HCC) Mixed hyperlipidemia Anxiety and depression (CMS/HCC) Kidney stones, calcium oxalate [facility] Diagnosis Obesity (BMI 30.0-34.9) Hemoptysis Anxiety and depression (CMS/HCC) [facility] - Reported* Type Description Date Medical History hyperlipidemia Medical History GERD Medical History carcinoid stomach and duodenum Surgical History Surgical History HYSTERECTOMY Surgical History BLADDER MESH Surgical History STOMACH RESECTION Surgical History TUMOR REMOVAL - LEFT SHOULDER Surgical History CHOLECYSTECTOMY Surgical History TUMOR REMOVAL - DUODENUM Surgical History liposuction / skin removal surg jimy Surgical History abdominoplasty 05/18/2018 Surgical History Colonoscopy - Dr. Booker 11/28/19 Surgical History EGD - Dr. Booker 11/22/2018 Surgical History GALLBLADDER Hospitalization History SEE [facility] [employer] Other History of Present illness Narrative* She is here for electrophysiology evaluation * The patient is here to discuss syncope. * Since loop recorder was implanted, she has had no arrhythmias to correlate with symptoms. * Overall she is pleased with how she feels. * She is working at [employer], she walks over 10,000 steps several days a week. * She is concerned that she has not lost weight. We discussed that she should avoid diet pills that have caffeine or stimulants. She will follow-up with her PCP regarding evaluation and management for weight loss. I did discuss with patient to increase aerobic exercise and to decrease carbohydrates in her diet. * See ROS, PMH, FMH, and surgical history for details. * Anxiety disorder. Medications weaned per patient report. * Former tobacco use. Quit several months ago. Tobacco cessation reinforced. Counseling 3 minutes forcontinued tobacco cessation.. * Calcium score 97 LAD * Normal stress test * Family history of coronary disease and heart attacks in their 50s years of age. No family history of sudden cardiac , or arrhythmia. * Personal review of ECG and cardiac data reviewed * Outside records: * Loop recorder check September 2021, August 2021 * Office visit with Dr. Arredondo June 2019 * Event monitor February 2020 * Echocardiogram February 2020 * ECG: Today.Normal sinus rhythm. Normal axis. Corrected QT interval 420 ms * Imp / Plan * Syncope, near syncope, palpitation. Negative event monitors as no symptoms during the 30-day monitoring time. Status post loop recorder * [facility] [id number] loop recorder. Reviewed device check from September 2021. Symptoms showed sinus rhythm sinus tachycardia with PVCs. Patient decreased to go to device clinic after today's office visit for devicecheck. Increase magnesium oxide to 400 mg twice daily. Prescription sent. * Hyperlipidemia. Chronic. Stable. Reviewed medications. On statin. Discussed potential adverse effect of medications. Follows with PCP and cardiology for blood work.. * Recent discontinuing tobacco use. 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 * COVID recovered * The patient and I and discussed the mechanism of arrhythmia, increased fluid status, ECG, loop recorder check remotes, device clinic evaluation before EP office visits, ndications for and types of medications, discussion if and what medication refills needed, treatment options, risks, benefits, and imponderables. [place] [employer] lifestyle changes and behavioral modification discussed. All questions answered in detail. Counseling over 50% visit regarding above. Patient appreciative of care. [facility] [employer] Work Phone: History of Present illness Narrative* She is here for electrophysiology evaluation * The patient is here to discuss syncope. * Since loop recorder was implanted, she has had no arrhythmias to correlate with symptoms. * Overall she is pleased with how she feels. * She is working at [employer], she walks over 10,000 steps several days a week. * She is concerned that she has not lost weight. We discussed that she should avoid diet pills that have caffeine or stimulants. She will follow-up with her PCP regarding evaluation and management for weight loss. I did discuss with patient to increase aerobic exercise and to decrease carbohydrates in her diet. * See ROS, PMH, FMH, and surgical history for details. * Anxiety disorder. Medications weaned per patient report. * Former tobacco use. Quit several months ago. Tobacco cessation reinforced. Counseling 3 minutes forcontinued tobacco cessation.. * Calcium score 97 LAD * Normal stress test * Family history of coronary disease and heart attacks in their 50s years of age. No family history of sudden cardiac , or arrhythmia. * Personal review of ECG and cardiac data reviewed * Outside records: * Loop recorder check September 2021, August 2021 * Office visit with Dr. Arredondo June 2019 * Event monitor February 2020 * Echocardiogram February 2020 * ECG: Today.Normal sinus rhythm. Normal axis. Corrected QT interval 420 ms * Imp / Plan * Syncope, near syncope, palpitation. Negative event monitors as no symptoms during the 30-day monitoring time. Status post loop recorder * [facility] [id number] loop recorder. Reviewed device check from September 2021. Symptoms showed sinus rhythm sinus tachycardia with PVCs. Patient agreed to go to device clinic after today's office visit for device check. Increase magnesium oxide to 400 mg twice daily. Prescription sent. * Hyperlipidemia. Chronic. Stable. Reviewed medications. On statin. Discussed potential adverse effect of medications. Follows with PCP and cardiology for blood work.. * Recent discontinuing tobacco use. 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 * COVID recovered * The patient and I and discussed the mechanism of arrhythmia, increased fluid status, ECG, loop recorder check remotes, device clinic evaluation before EP office visits, ndications for and types of medications, discussion if and what medication refills needed, treatment options, risks, benefits, and imponderables. [place] [employer] lifestyle changes and behavioral modification discussed. All questions answered in detail. Counseling over 50% visit regarding above. Patient appreciative of care. [facility] 320 DO Work Phone: History of Present illness Narrative* She is here for electrophysiology evaluation * The patient is here to discuss syncope. * Since loop recorder was implanted, she has had no arrhythmias to correlate with symptoms. * She is now treated for DARNELL with CPAP. * Overall she is pleased that her symptoms resolved after CPAP. * She really feels great. Her activity level has increased. * See ROS, PMH, FMH, and surgical history for details. * SHe continues to work at [employer]. * She is looking at starting a second job. * Anxiety disorder. Medications weaned off by pt report. * Former tobacco use. Quit last year. Tobacco cessation reinforced. Counseling 3 minutes for continued tobacco cessation. * Calcium score 97 LAD * Normal stress test * Family history of coronary disease and heart attacks in their 50s years of age. No family history of sudden cardiac , or arrhythmia. * Personal review of ECG and cardiac data reviewed * Outside records: * OV with Dr. Arredondo Dec 2021 * Device check Oct 2021 * OV Oct 2021 * Loop recorder check September 2021, August 2021 * Office visit with Dr. Arredondo June 2019 * Event monitor February 2020 * Echocardiogram February 2020 * ECG: Today.Normal sinus rhythm. Normal axis. Corrected QT interval 420 ms * Device check today. SJM DM 3500. No events. Battery ok. * Imp / Plan * Syncope, near syncope, palpitation. Negative event monitors as no symptoms during the 30-day monitoring time. Status post loop recorder * [facility] [id number] loop recorder. Reviewed device checks. * PVC's. Discussed mechanism. Continue Mg Ox. * Hyperlipidemia. Chronic. Stable. Reviewed medications. On statin. Reviewed bloodwork. * Former smoker. 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 * COVID recovered * The patient and I discussed the mechanism of arrhythmia, increased fluid status, ECG, loop recordercheck remotes, device clinic evaluation before EP office visits, assocation of arrhythmias and DARNELL,indications for and types of medications, discussion if and what medication refills needed, treatment options, risks, benefits, and imponderables. [place] [employer] lifestyle changes and behavioral modification discussed. All questions answered in detail. Counseling over 50% visit regarding above. Patient appreciative of care. [place] [address] DO Work Phone: History of Present illness Narrative* She is here for electrophysiology evaluation * The patient is here to discuss syncope. * Since loop recorder was implanted, she has had no arrhythmias to correlate with symptoms. * She is now treated for DARNELL with CPAP. * Overall she is pleased that her symptoms resolved after CPAP. * She really feels great. Her activity level has increased. * See ROS, PMH, FMH, and surgical history for details. * SHe continues to work at [employer]. * She is looking at starting a second job. * Anxiety disorder. Medications weaned off by pt report. * Former tobacco use. Quit last year. Tobacco cessation reinforced. Counseling 3 minutes for continued tobacco cessation. * Calcium score 97 LAD * Normal stress test * Family history of coronary disease and heart attacks in their 50s years of age. No family history of sudden cardiac , or arrhythmia. * Personal review of ECG and cardiac data reviewed * Outside records: * OV with Dr. Arredondo Dec 2021 * Device check Oct 2021 * OV Oct 2021 * Loop recorder check September 2021, August 2021 * Office visit with Dr. Arredondo June 2019 * Event monitor February 2020 * Echocardiogram February 2020 * ECG: Today.Normal sinus rhythm. Normal axis. Corrected QT interval 420 ms * Device check today. SJM DM 3500. No events. Battery ok. * Imp / Plan * Syncope, near syncope, palpitation. Negative event monitors as no symptoms during the 30-day monitoring time. Status post loop recorder * [facility] [id number] loop recorder. Reviewed device checks. * PVC's. Discussed mechanism. Continue Mg Ox. * Hyperlipidemia. Chronic. Stable. Reviewed medications. On statin. Reviewed bloodwork. * Former smoker. 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 * COVID recovered * The patient and I discussed the mechanism of arrhythmia, increased fluid status, ECG, loop recordercheck remotes, device clinic evaluation before EP office visits, assocation of arrhythmias and DARNELL,indications for and types of medications, discussion if and what medication refills needed, treatment options, risks, benefits, and imponderables. [place] [employer] lifestyle changes and behavioral modification discussed. All questions answered in detail. Counseling over 50% visit regarding above. Patient appreciative of care. [facility] 320 DO Work Phone: Hospital Discharge instructions Additional Instructions Take your ibuprofen every 6 hours as needed for pain [facility] Work [facility]: Hospital Discharge instructions Additional Instructions Follow-up with your primary care doctor Return to develop worsening [facility] Work [facility]: Hospital Discharge instructions Additional Instructions Drink the mag citrate that you have at home half the bottle with no results in 30 minutes drink other half MiraLAX daily as needed discussed Push fluids Increase fiber in your diet Follow-up with your doctor call Tuesday for appointment Return here if any problems persist or worsen as discussedFisher[facility] Work Phone: Progress note No data available for this section [facility] Reason for referral (narrative)* Outpatient Procedure (Routine) - Pending Review Specialty Diagnoses / Procedures Referred By Darline álvarez Referred To Contact [facility] Diagnoses Generalized abdominal pain Gastroenteritis Benign carcinoid tumor of stomach Procedures EGD DIAGNOSTIC ESOPHAGOGASTRODUODENOSC OPY TRANSORAL DIAGNOSTIC Naty Booker Jr., DO [address] [place] [address] [facility] [place] [address] [place] [id number] Referral ID Status Reason Start Date Expiration Date Visits Requested Visits Authorized [id number] Pending Review Auto-Generat ed Referral 02/23/2023 1 1 T [facility] for referral (narrative)* Diagnostic Procedure Only (Routine) - Pending Review Specialty Diagnoses / Procedures Referred By Darline álvarez Referred To Contact XR IMAGING Diagnoses Gastroesophageal reflux disease, unspecified whether esophagitis present Procedures XR UPPER GI SINGLE CONTRAST RADIOLOGIC EXAM UPR GI TRC SINGLE CONTRAST STUDY Naty Booker Jr., DO [address] [place] [address] Xr Imaging Referral ID Status Reason Start Date Expiration Date Visits Requested Visits Authorized [id number] Pending Review Auto-Generat ed Referral 07/14/2022 08/13/2023 1 1 * Diagnostic Procedure Only (Routine) - Pending Review Specialty Diagnoses / Procedures Referred By Darline t Referred To Contact XR IMAGING Diagnoses Gastroesophageal reflux disease, unspecified whether esophagitis present Procedures XR ESOPHAGRAM RADIOLOGIC EXAM ESOPHAGUS SINGLE CONTRAST STUDY Naty Booker Jr., DO [address] [place] [address] Xr Imaging Referral ID Status Reason Start Date Expiration Date Visits Requested Visits Authorized [id number] Pending Review Auto-Generat ed Referral 07/14/2022 08/13/2023 1 1 [facility] for referral (narrative)* Outpatient Procedure (Routine) - Pending Review Specialty Diagnoses / Procedures Referred By Contac t Referred To Contact [facility] Diagnoses Chronic gastric ulcer without hemorrhage and without perforation Procedures EGD DIAGNOSTIC ESOPHAGOGASTRODUODENOSC OPY TRANSORAL DIAGNOSTIC Darvin Pritchard MD [address] [place] [address] [address] Referral ID Status Reason Start Date Expiration Date Visits Requested Visits Authorized [id number] Pending Review Auto-Generat ed Referral 07/22/2022 07/23/2023 1 1 T [facility] for referral (narrative)* Diagnostic Procedure Only (Routine) - Authorized Specialty Diagnoses / Procedures Referred By Contac t Referred To Contact US IMAGING Diagnoses Thyroid nodule greater than or equal to 1.5 cm in diameter incidentally noted on imaging study Procedures US THYROID/PARATHYROID US SOFT TISSUE HEAD & NECK REAL TIME IMGE Joaquim Polo MD [address] [address] Us Imaging Referral ID Status Reason Start Date Expiration Date Visits Requested Visits Authorized [id number] Authorized Auto-Generat ed Referral 10/25/2022 11/24/2023 1 1 T [facility] for referral (narrative)* Outpatient Procedure (Routine) - Pending Review Specialty Diagnoses / Procedures Referred By Contac t Referred To Contact [facility] Diagnoses Generalized abdominal pain Family history of colon cancer Change in bowel habits Procedures COLONOSCOPY DIAGNOSTIC COLONOSCOPY FLX DX W/COLLJ SPEC WHEN PFNaty Mckeon Jr., DO [address] [place] [address] [address] Referral ID Status Reason Start Date Expiration Date Visits Requested Visits Authorized [id number] Pending Review Auto-Generat ed Referral 12/03/2022 12/04/2023 1 1 * Outpatient Procedure (Routine) - Pending Review Specialty Diagnoses / Procedures Referred By Darline álvarez Referred To Contact [facility] Diagnoses Generalized abdominal pain Gastroesophageal reflux disease, unspecified whether esophagitis present History of benign carcinoid neoplasm of gastrointestinal tract Procedures EGD DIAGNOSTIC ESOPHAGOGASTRODUODENOSCOPY TRANSORAL DIAGNOSTIC Naty Booker Jr., DO [address] [place] [address] [address] Referral ID Status Reason Start Date Expiration Date Visits Requested Visits Authorized [id number] Pending Review Auto-Generat ed Referral 12/03/2022 12/04/2023 1 1 [facility] for referral (narrative)* Outpatient Procedure (Routine) - Closed Specialty Diagnoses / Procedures Referred By Darline álvarez Referred To Contact [facility] Diagnoses Generalized abdominal pain Gastroenteritis Benign carcinoid tumor of stomach Procedures EGD DIAGNOSTIC ESOPHAGOGASTRODUODENOSCOPY TRANSORAL DIAGNOSTIC Naty Booker Jr., DO [address] [place] [address] [facility] [address] [place] [address] Referral ID Status Reason Start Date Expiration Date V isits Requested Visits Authorized [id number] Closed Auto-Generate d Referral 02/23/2022 02/23/2023 1 1 [facility] for referral (narrative)* Outpatient Procedure (Routine) - Closed Specialty Diagnoses / Procedures Referred By Darline álvarez Referred To Contact Diagnoses Generalized abdominal pain Family history of colon cancer Change in bowel habits Procedures COLONOSCOPY DIAGNOSTIC COLONOSCOPY FLX DX W/COLLJ SPEC WHEN PFRMD Naty Booker Jr., DO [address] [place] [address] [address] Procedure [id number] [place] [address] Referral ID Status Reason Start Date Expiration Date V isits Requested Visits Authorized [id number] Closed Auto-Generate d Referral 12/29/2022 03/29/2023 1 1 * Outpatient Procedure (Routine) - Closed Specialty Diagnoses / Procedures Referred By Darline álvarez Referred To Contact Diagnoses Generalized abdominal pain Gastroesophageal reflux disease, unspecified whether esophagitis present History of benign carcinoid neoplasm of gastrointestinal tract Procedures EGD DIAGNOSTIC ESOPHAGOGASTRODUODENOSCOPY TRANSORAL DIAGNOSTIC Naty Booker Jr., DO [address] [place] [address] [id number] [place] [address] [id number] Referral ID Status Reason Start Date Expiration Date V isits Requested Visits Authorized [id number] Closed Auto-Generate d Referral 12/29/2022 03/29/2023 1 1 [facility] Consultation (Routine) - Pending Review Specialty Diagnoses / Procedures Referred By Darline álvarez Referred To Contact Gastroenterology Diagnoses Irritable bowel syndrome with both constipation and diarrhea LPRD (laryngopharyngeal reflux disease) Bloating Procedures [place] OFFICE/OUTPATIENT NEW HIGH MDM 60 MINUTES Trey Brown DO [address] [place] [address] Lala Carbajal MD [address] [place] [phone] Referral ID Status Reason Start Date Expiration Date Visits Requested Visits Authorized [id number] Pending Review Specialty Services Required 06/13/2023 12/10/2023 1 1 [facility] [place] for referral (narrative)* Diagnostic Procedure Only (Routine) - Closed Specialty Diagnoses / Procedures Referred By Darline álvarez Referred To Contact US IMAGING Diagnoses Thyroid nodule Procedures US THYROID/PARATHYROID US SOFT TISSUE HEAD & NECK REAL TIME IMGE Joaquim Polo MD [address] [address] [place] [address] Referral ID Status Reason Start Date Expiration Date V isits Requested Visits Authorized [id number] Closed Auto-Generate d Referral 06/30/2023 07/29/2024 1 1 [facility] for referral (narrative)* Diagnostic Procedure Only (Routine) - Pending Review Specialty Diagnoses / Procedures Referred By Darline álvarez Referred To Contact MOLECULAR & FUNCTIONAL IMAGING Diagnoses Malignant carcinoid tumor of duodenum (HCC) Procedures NM PET/CT NEUROENDOCRINE WHOLE BODY IMAGING PET IMAGING CT ATTENUATION SKULL BASE MID-THIGH Annemarie Judd MD [address] [place] [address] [place] [address] Molecular & Functional Imaging [address] [place] [address] Referral ID Status Reason Start Date Expiration Date Visits Requested Visits Authorized [id number] Pending Review Auto-Generat ed Referral 07/30/2023 08/28/2024 1 1 * MRI/CT (Routine) - Pending Review Specialty Diagnoses / Procedures Referred By Darline álvarez Referred To Contact CT IMAGING Diagnoses Malignant carcinoid tumor of duodenum (HCC) Procedures CT LIVER/PELVIS W IVCON CT ABD & PELVIS W/CONTRAST Annemarie Judd MD [address] [place] [address] [place] [address] Referral ID Status Reason Start Date Expiration Date Visits Requested Visits Authorized [id number] Pending Review Auto-Generat ed Referral 10/30/2023 08/28/2024 1 1 * MRI/CT (Routine) - Pending Review Specialty Diagnoses / Procedures Referred By Darline álvarez Referred To Contact CT IMAGING Diagnoses Malignant carcinoid tumor of duodenum (HCC) Procedures CT CHEST W IVCON DIAGNOSTIC COMPUTED TOMOGRAPHY THORAX W/CONTRAST Annemarie Judd MD [address] [place] [address] [address] [place], [place] [address] [place] [address] Referral ID Status Reason Start Date Expiration Date Visits Requested Visits Authorized [id number] Pending Review Auto-Generat ed Referral 10/30/2023 08/28/2024 1 1 [facility] for referral (narrative)* Diagnostic Procedure Only (Routine) - Closed Specialty Diagnoses / Procedures Referred By Darline álvarez Referred To Contact MOLECULAR & FUNCTIONAL IMAGING Diagnoses Malignant carcinoid tumor of duodenum (HCC) Procedures NM PET/CT NEUROENDOCRINE WHOLE BODY IMAGING PET IMAGING CT ATTENUATION SKULL BASE MID-THIGH GALLIUM GA-68 Annemarie Judd MD [address] [place] [address] [address] [place], [place] [address] Molecular & Functional Imaging [address] [place] [address] Referral ID Status Reason Start Date Expiration Date V isits Requested Visits Authorized [id number] Closed Auto-Generate d Referral 08/09/2023 09/08/2023 1 1 [facility] for referral (narrative)* Outpatient Procedure (Routine) - Authorized Specialty Diagnoses / Procedures Referred By Darline álvarez Referred To Contact [facility] Diagnoses Abdominal bloating LLQ pain Procedures BREATH TEST GLUCOSE BREATH HYDROGEN/METHANE TEST Lala Carbajal MD, PhD [address] [place] [address] [facility] [place] [address] Referral ID Status Reason Start Date Expiration Date Visits Requested Visits Authorized [id number] Authorized Auto-Generat ed Referral 12/09/2023 12/08/2024 1 1 * Diagnostic Procedure Only (Routine) - New Request Specialty Diagnoses / Procedures Referred By Darline álvarez Referred To Contact XR IMAGING Diagnoses LLQ pain Constipation, unspecified constipation type Procedures XR ABDOMEN 1V SUPINE RADIOLOGIC EXAM ABDOMEN 1 VIEW Lala Carbajal MD, PhD [address] [place], [place] [id number] [facility] [place] [address] Referral ID Status Reason Start Date Expiration Date Visits Requested Visits Authorized [id number] New Request Auto-Generat ed Referral 12/09/2023 01/07/2025 1 1 * Outpatient Procedure (Routine) - Authorized Specialty Diagnoses / Procedures Referred By Darline álvarez Referred To Contact [facility] Diagnoses Abdominal bloating FH: colon cancer Procedures [facility] ANORECTAL MANOMETRY ANORECTAL MANOMETRY Lala Carbajal MD, PhD [address] [place] [address] [facility] [place] [address] [place], [place] [phone] Referral ID Status Reason Start Date Expiration Date Visits Requested Visits Authorized [id number] Authorized Auto-Generat ed Referral 12/09/2023 12/08/2024 1 1 * Consult, Test, Treat (Routine) - Authorized Specialty Diagnoses / Procedures Referred By Darline álvarez Referred To Contact Diagnoses FH: colon cancer Procedures CONSULT TO MEDICAL GENETICS - CANCER MEDICAL GENETICS COUNSELING EACH 30 MINUTES Lala Carbajal MD, PhD [address] [place] [address] [address] Referral ID Status Reason Start Date Expiration Date Visits Requested Visits Authorized [id number] Authorized PCP Requested Referral Auto-Generate d Referral 12/09/2023 12/08/2024 1 1 [facility] for referral (narrative)* Diagnostic Procedure Only (Routine) - Closed Specialty Diagnoses / Procedures Referred By Robinsonac t Referred To Contact XR IMAGING Diagnoses LLQ pain Constipation, unspecified constipation type Procedures XR ABDOMEN 1V SUPINE RADIOLOGIC EXAM ABDOMEN 1 VIEW Lala Carbajal MD, PhD [address] [place] [address] [place] [address] Referral ID Status Reason Start Date Expiration Date V isits Requested Visits Authorized [id number] Closed Auto-Generate d Referral 12/09/2023 01/07/2025 1 1 T [facility] for referral (narrative)* Outpatient Procedure (Routine) - Closed Specialty Diagnoses / Procedures Referred By Contac t Referred To Contact Diagnoses Gastroesophageal reflux disease, unspecified whether esophagitis present Procedures EGD DIAGNOSTIC ESOPHAGOGASTRODUODENOSCOPY TRANSORAL DIAGNOSTIC Naty Booker Jr., DO [address] [place] [address] [facility] [address] [place] [address] Referral ID Status Reason Start Date Expiration Date V isits Requested Visits Authorized [id number] Closed Auto-Generate d Referral 07/22/2022 07/22/2023 1 1 [facility] for referral (narrative)* Outpatient Procedure (Routine) - Authorized Specialty Diagnoses / Procedures Referred By Contac t Referred To Contact [facility] Diagnoses Diarrhea, unspecified type Family history of colon cancer Procedures COLONOSCOPY DIAGNOSTIC COLONOSCOPY FLX DX W/COLLJ SPEC WHEN Naty Torres Jr., DO [address] [place] [address] [address] Referral ID Status Reason Start Date Expiration Date Visits Requested Visits Authorized [id number] Authorized Auto-Generat ed Referral 04/28/2024 1 1 * Outpatient Procedure (Routine) - Pending Review Specialty Diagnoses / Procedures Referred By Darline t Referred To Contact [facility] Diagnoses GI carcinoid tumor Procedures EGD DIAGNOSTIC ESOPHAGOGASTRODUODENOSC OPY TRANSORAL DIAGNOSTIC Naty Booker Jr., DO [address] [place] [address] [address] Referral ID Status Reason Start Date Expiration Date Visits Requested Visits Authorized [id number] Pending Review Auto-Generat ed Referral 03/16/2024 03/16/2025 1 1 [facility] for referral (narrative)* Outpatient Procedure (Routine) - Closed Specialty Diagnoses / Procedures Referred By Darline t Referred To Contact [facility] Diagnoses Diarrhea, unspecified type Family history of colon cancer Procedures COLONOSCOPY DIAGNOSTIC COLONOSCOPY FLX DX W/COLLJ SPEC WHEN Naty Torres Jr., DO [address] [place] [address] [address] [address] Referral ID Status Reason Start Date Expiration Date V isits Requested Visits Authorized [id number] Closed Auto-Generate d Referral 03/29/2024 04/28/2024 1 1 * Outpatient Procedure (Routine) - Closed Specialty Diagnoses / Procedures Referred By Darline t Referred To Contact [facility] Diagnoses GI carcinoid tumor Procedures EGD DIAGNOSTIC ESOPHAGOGASTRODUODENOSC OPY TRANSORAL DIAGNOSTIC Naty Booker Jr., DO [address] [place] [address] [facility] [place] [address] [place] [address] Referral ID Status Reason Start Date Expiration Date V isits Requested Visits Authorized [id number] Closed Auto-Generate d Referral 03/29/2024 05/08/2024 1 1 [facility] for visit Narrative* Outpatient Procedure (Routine) - Closed Specialty Diagnoses / Procedures Referred By Darline álvarez Referred To Contact [facility] Diagnoses Generalized abdominal pain Gastroenteritis Benign carcinoid tumor of stomach Procedures EGD DIAGNOSTIC ESOPHAGOGASTRODUODENOSCOPY TRANSORAL DIAGNOSTIC Naty Booker Jr., DO [address] [place] [address] [facility] [address] [place] [address] Referral ID Status Reason Start Date Expiration Date V isits Requested Visits Authorized [id number] Closed Auto-Generate d Referral 02/23/2022 02/23/2023 1 1 [facility] for visit Narrative* Outpatient Procedure (Routine) - Closed Specialty Diagnoses / Procedures Referred By Darline álvarez Referred To Contact Diagnoses Generalized abdominal pain Family history of colon cancer Change in bowel habits Procedures COLONOSCOPY DIAGNOSTIC COLONOSCOPY FLX DX W/COLLJ SPEC WHEN PFRMD Naty Booker Jr., DO [address] [place] [address] Procedure [address] [place] [address] Referral ID Status Reason Start Date Expiration Date V isits Requested Visits Authorized [id number] Closed Auto-Generate d Referral 12/29/2022 03/29/2023 1 1 [facility] for visit Narrative* Diagnostic Procedure Only (Routine) - Closed Specialty Diagnoses / Procedures Referred By Robinsonac t Referred To Contact US IMAGING Diagnoses Thyroid nodule Procedures US THYROID/PARATHYROID US SOFT TISSUE HEAD & NECK REAL TIME IMGE Joaquim Polo MD [address] [address] [place] [address] Referral ID Status Reason Start Date Expiration Date V isits Requested Visits Authorized [id number] Closed Auto-Generate d Referral 06/30/2023 07/29/2024 1 1 [facility] for visit Narrative* Diagnostic Procedure Only (Routine) - Closed Specialty Diagnoses / Procedures Referred By Contac t Referred To Contact MOLECULAR & FUNCTIONAL IMAGING Diagnoses Malignant carcinoid tumor of duodenum (HCC) Procedures NM PET/CT NEUROENDOCRINE WHOLE BODY IMAGING PET IMAGING CT ATTENUATION SKULL BASE MID-THIGH GALLIUM GA-68 Annemarie Judd MD [address] [place] [address] [address] [place] [address] Molecular & Functional Imaging [address] [place] [address] Referral ID Status Reason Start Date Expiration Date V isits Requested Visits Authorized [id number] Closed Auto-Generate d Referral 08/09/2023 09/08/2023 1 1 [facility] for visit Narrative* Outpatient Procedure (Routine) - Closed Specialty Diagnoses / Procedures Referred By Darline álvarez Referred To Contact Diagnoses Gastroesophageal reflux disease, unspecified whether esophagitis present Procedures EGD DIAGNOSTIC ESOPHAGOGASTRODUODENOSCOPY TRANSORAL DIAGNOSTIC Naty Booker Jr., [address] [address] [facility] [id number] [place] [address] Referral ID Status Reason Start Date Expiration Date V isits Requested Visits Authorized [id number] Closed Auto-Generate d Referral 07/22/2022 07/22/2023 1 1 [facility] for visit Narrative* Outpatient Procedure (Routine) - Closed Specialty Diagnoses / Procedures Referred By Darline t Referred To Contact [facility] Diagnoses Abdominal bloating FH: colon cancer Procedures [facility] ANORECTAL MANOMETRY ANORECTAL MANOMETRY Lala Carbajal MD, PhD [address] [place] [address] [place] [phone] Referral ID Status Reason Start Date Expiration Date V isits Requested Visits Authorized [id number] Closed Auto-Generate d Referral 12/09/2023 12/08/2024 1 1 [facility] for visit Narrative* Outpatient Procedure (Routine) - Closed Specialty Diagnoses / Procedures Referred By Contac t Referred To Contact [facility] Diagnoses Diarrhea, unspecified type Family history of colon cancer Procedures COLONOSCOPY DIAGNOSTIC COLONOSCOPY FLX DX W/COLLJ SPEC WHEN Naty Torres Jr., DO [address] [place] [address] [address] [place] [address] Referral ID Status Reason Start Date Expiration Date V isits Requested Visits Authorized [id number] Closed Auto-Generate d Referral 03/29/2024 04/28/2024 1 1 [facility] for visit Narrative* Outpatient Procedure (Routine) - Closed Specialty Diagnoses / Procedures Referred By Contac t Referred To Contact [facility] Diagnoses Abdominal swelling Procedures ECHO ECHO TTHRC R-T 2D W/WOM-MODE COMPL SPEC&COLR D Linda Valero MD [address] [place] [address] [facility] [place] [address] Referral ID Status Reason Start Date Expiration Date V isits Requested Visits Authorized [id number] Closed Auto-Generate d Referral 05/22/2024 07/20/2024 1 1 [facility] Summary Purpose Family History Relationship Condition Age at Onset Recorded Date/T lion Not Specified Malignant neoplasm of colon Unknown father Diabetes mellitus Unknown Myocardial infarction Unknown Cerebrovascular accident (CVA) Unknown brother Diabetes mellitus Unknown Malignant neoplasm of bone Unknown Unknown Family Member Name Dates Details Family history of malignant neoplasm of colon: Mother(V16.0, Z80.0) Status:Active Family history of cerebral a neurysm: Mother(V17.1, Z82.49) Status:Active Family history of hyperlipid emia: Father(V18.19, Z83.438) Status:Active Family history of myocardial infarction: Father(V17.3, Z82.49) Status:Active Family history of hypertensi on: Father(V17.49, Z82.49) Status:Active Family history of cerebrovas cular accident (CVA): Father(V17.1, Z82.3) Status:Active Family history of cardiac pa cemaker: Father(V17.49, Z82.49) Status:Active Unknown Family Member Name Dates Details Family history of malignant neoplasm of colon: Mother(V16.0, Z80.0) Status:Active Family history of cerebral a neurysm: Mother(V17.1, Z82.49) Status:Active Family history of hyperlipid emia: Father(V18.19, Z83.438) Status:Active Family history of myocardial infarction: Father(V17.3, Z82.49) Status:Active Family history of hypertensi on: Father(V17.49, Z82.49) Status:Active Family history of cerebrovas cular accident (CVA): Father(V17.1, Z82.3) Status:Active Family history of cardiac pa cemaker: Father(V17.49, Z82.49) Status:Active Unknown Family Member Name Dates Details Family history of malignant neoplasm of colon: Mother(V16.0, Z80.0) Status:Active Family history of cerebral a neurysm: Mother(V17.1, Z82.49) Status:Active Family history of hyperlipid emia: Father(V18.19, Z83.438) Status:Active Family history of myocardial infarction: Father(V17.3, Z82.49) Status:Active Family history of hypertensi on: Father(V17.49, Z82.49) Status:Active Family history of cerebrovas cular accident (CVA): Father(V17.1, Z82.3) Status:Active Family history of cardiac pa cemaker: Father(V17.49, Z82.49) Status:Active Unknown Family Member Name Dates Details Family history of cardiac pa cemaker: Father(V17.49, Z82.49) Status:Active Family history of cerebrovas cular accident (CVA): Father(V17.1, Z82.3) Status:Active Family history of hypertensi on: Father(V17.49, Z82.49) Status:Active Family history of myocardial infarction: Father(V17.3, Z82.49) Status:Active Family history of hyperlipid emia: Father(V18.19, Z83.438) Status:Active Family history of cerebral a neurysm: Mother(V17.1, Z82.49) Status:Active Family history of malignant neoplasm of colon: Mother(V16.0, Z80.0) Status:Active Unknown Family Member Name Dates Details Family history of malignant neoplasm of colon: Mother(V16.0, Z80.0) Status:Active Family history of cerebral a neurysm: Mother(V17.1, Z82.49) Status:Active Family history of hyperlipid emia: Father(V18.19, Z83.438) Status:Active Family history of myocardial infarction: Father(V17.3, Z82.49) Status:Active Family history of hypertensi on: Father(V17.49, Z82.49) Status:Active Family history of cerebrovas cular accident (CVA): Father(V17.1, Z82.3) Status:Active Family history of cardiac pa cemaker: Father(V17.49, Z82.49) Status:Active Unknown Family Member Name Dates Details Family history of cardiac pa cemaker: Father(V17.49, Z82.49) Status:Active Family history of cerebrovas cular accident (CVA): Father(V17.1, Z82.3) Status:Active Family history of hypertensi on: Father(V17.49, Z82.49) Status:Active Family history of myocardial infarction: Father(V17.3, Z82.49) Status:Active Family history of hyperlipid emia: Father(V18.19, Z83.438) Status:Active Family history of cerebral a neurysm: Mother(V17.1, Z82.49) Status:Active Family history of malignant neoplasm of colon: Mother(V16.0, Z80.0) Status:Active Unknown Family Member Name Dates Details Family history of cardiac pa cemaker: Father(V17.49, Z82.49) Status:Active Family history of cerebrovas cular accident (CVA): Father(V17.1, Z82.3) Status:Active Family history of hypertensi on: Father(V17.49, Z82.49) Status:Active Family history of myocardial infarction: Father(V17.3, Z82.49) Status:Active Family history of hyperlipid emia: Father(V18.19, Z83.438) Status:Active Family history of cerebral a neurysm: Mother(V17.1, Z82.49) Status:Active Family history of malignant neoplasm of colon: Mother(V16.0, Z80.0) Status:Active Unknown Family Member Name Dates Details Family history of cardiac pa cemaker: Father(V17.49, Z82.49) Status:Active Family history of cerebrovas cular accident (CVA): Father(V17.1, Z82.3) Status:Active Family history of hypertensi on: Father(V17.49, Z82.49) Status:Active Family history of myocardial infarction: Father(V17.3, Z82.49) Status:Active Family history of hyperlipid emia: Father(V18.19, Z83.438) Status:Active Family history of cerebral a neurysm: Mother(V17.1, Z82.49) Status:Active Family history of malignant neoplasm of colon: Mother(V16.0, Z80.0) Status:Active Unknown Family Member Name Dates Details Family history of cardiac pa cemaker: Father(V17.49, Z82.49) Status:Active Family history of cerebrovas cular accident (CVA): Father(V17.1, Z82.3) Status:Active Family history of hypertensi on: Father(V17.49, Z82.49) Status:Active Family history of myocardial infarction: Father(V17.3, Z82.49) Status:Active Family history of hyperlipid emia: Father(V18.19, Z83.438) Status:Active Family history of cerebral a neurysm: Mother(V17.1, Z82.49) Status:Active Family history of malignant neoplasm of colon: Mother(V16.0, Z80.0) Status:Active Unknown Family Member Name Dates Details Family history of cardiac pa cemaker: Father(V17.49, Z82.49) Status:Active Family history of cerebrovas cular accident (CVA): Father(V17.1, Z82.3) Status:Active Family history of hypertensi on: Father(V17.49, Z82.49) Status:Active Family history of myocardial infarction: Father(V17.3, Z82.49) Status:Active Family history of hyperlipid emia: Father(V18.19, Z83.438) Status:Active Family history of cerebral a neurysm: Mother(V17.1, Z82.49) Status:Active Family history of malignant neoplasm of colon: Mother(V16.0, Z80.0) Status:Active Unknown Family Member Name Dates Details Family history of cardiac pa cemaker: Father(V17.49, Z82.49) Status:Active Family history of cerebrovas cular accident (CVA): Father(V17.1, Z82.3) Status:Active Family history of hypertensi on: Father(V17.49, Z82.49) Status:Active Family history of myocardial infarction: Father(V17.3, Z82.49) Status:Active Family history of hyperlipid emia: Father(V18.19, Z83.438) Status:Active Family history of cerebral a neurysm: Mother(V17.1, Z82.49) Status:Active Family history of malignant neoplasm of colon: Mother(V16.0, Z80.0) Status:Active Unknown Family Member Name Dates Details Family history of cardiac pa cemaker: Father(V17.49, Z82.49) Status:Active Family history of cerebrovas cular accident (CVA): Father(V17.1, Z82.3) Status:Active Family history of hypertensi on: Father(V17.49, Z82.49) Status:Active Family history of myocardial infarction: Father(V17.3, Z82.49) Status:Active Family history of hyperlipid emia: Father(V18.19, Z83.438) Status:Active Family history of cerebral a neurysm: Mother(V17.1, Z82.49) Status:Active Family history of malignant neoplasm of colon: Mother(V16.0, Z80.0) Status:Active Unknown Family Member Name Dates Details Family history of cardiac pa cemaker: Father(V17.49, Z82.49) Status:Active Family history of cerebrovas cular accident (CVA): Father(V17.1, Z82.3) Status:Active Family history of hypertensi on: Father(V17.49, Z82.49) Status:Active Family history of myocardial infarction: Father(V17.3, Z82.49) Status:Active Family history of hyperlipid emia: Father(V18.19, Z83.438) Status:Active Family history of cerebral a neurysm: Mother(V17.1, Z82.49) Status:Active Family history of malignant neoplasm of colon: Mother(V16.0, Z80.0) Status:Active Unknown Family Member Name Dates Details Family history of cardiac pa cemaker: Father(V17.49, Z82.49) Status:Active Family history of cerebrovas cular accident (CVA): Father(V17.1, Z82.3) Status:Active Family history of hypertensi on: Father(V17.49, Z82.49) Status:Active Family history of myocardial infarction: Father(V17.3, Z82.49) Status:Active Family history of hyperlipid emia: Father(V18.19, Z83.438) Status:Active Family history of cerebral a neurysm: Mother(V17.1, Z82.49) Status:Active Family history of malignant neoplasm of colon: Mother(V16.0, Z80.0) Status:Active Relationship Condition Age at Onset Recorded Date/T lion Not Specified Malignant neoplasm of colon Unknown father Diabetes mellitus Unknown Myocardial infarction Unknown Cerebrovascular accident (CVA) Unknown brother Diabetes mellitus Unknown Malignant neoplasm of bone Unknown father Hypertension Unknown Heart disease Unknown Not Specified Malignant neoplasm Unknown Diabetes mellitus Unknown Unknown Relationship Condition Age at Onset Recorded Date/T lion Not Specified Malignant neoplasm of colon Unknown Unknown Diabetes mellitus Unknown father Diabetes mellitus Unknown Myocardial infarction Unknown Cerebrovascular accident (CVA) Unknown Heart disease Unknown brother Diabetes mellitus Unknown Malignant neoplasm of bone Unknown Relationship Condition Age at Onset Recorded Date/T lion mother Malignant neoplasm of colon Unknown Unknown Diabetes mellitus Unknown father Diabetes mellitus Unknown Myocardial infarction Unknown Cerebrovascular accident (CVA) Unknown Heart disease Unknown brother Diabetes mellitus Unknown Malignant neoplasm of bone Unknown Advance Directives Documents on File Type Date Recorded Patient [employer] Expl anation Advance Directive(s) 05/30/2017 9:02 AM Advance Directive(s) 05/30/2017 9:13 AM Advance Directive Response Recorded Date/ Time Advance Directives No May 24, 2017 12:27pm Documents on File Type Date Recorded Patient [employer]rer Expl anation Advance Directive(s) 05/30/2017 9:13 AM Documents on File Type Date Recorded Patient [employer]rer Expl anation Advance Directive(s) 05/30/2017 9:13 AM Advance Directive Response Recorded Date/ Time Advance Directives No May 24, 2017 11:27am Date Activated Date Inactivated Comments 10/19/2023 3:09 PM Date Activated Date Inactivated Comments 10/19/2023 3:09 PM Assessments No Assessments Information Available Chief Complaint Patient here for 4 month follow-up from [facility] with PMCPatient here for 4 month follow-up from [facility] with PMCJESUS MANUELMiranda LIU is being seen for a 6 month follow-up of.* HANK LIU is being seen for a 6 month follow-up of. * Patient is in the office for follow-up for the problems noted below. Few weeks ago she acquired COVID-19 infection even though she was vaccinated twice but never received the booster shot. Since the infection which did not lead to any admission to the hospital she has not been feeling well. She hasgeneralized symptoms of fatigue and dyspnea on exertion and body aches. There is no objective indication abnormalities on physical examination. I did point out to the patient that I have seen this problem in patients who have had Covid infection without any objective evidence of abnormalities in the cardiovascular or respiratory systems. She has not had any syncopal events and nothing has been reported on the loop recorder that she has in place. Her physical examination was only remarkable for obesity. Her medication reviewed. I discussed with the patient's options of work-up which will be outlined below. * Assessment/recommendations: * 1 history of recurrent near syncopal events with no recent recurrences. She has a loop recorder which has not recorded any abnormalities. She follows with electrophysiology. We will continue to monitor * 2 obesity, encouraged the patient to reduce calorie consumption and increase her daily activities. * 3 hyperlipidemia on statin therapy, at the present time at a low dose, patient has intolerance to higher doses of statin * 4-history of tobacco abuse ended several months ago. * 5 a constellation of nonspecific symptoms of fatigue, dyspnea on exertion, palpitations and body ache after having COVID-19 infection. There was no objective evidence of any abnormalities on examination today. I discussed with the patient investigations such as echocardiogram or stress test but I told her that the likelihood of finding something more would be very low. Therefore the patient decided to simply watch it for the time being which I agree with. Patient here for 6 month follow-up.Patient here for 6 month follow-up.* HANK LIU is being seen for a 6 month follow-up of. * Is in the office for follow-up of for the problems noted below. She was seen recently by Dr. Floyd and the loop monitor recorder has picked up pauses up to 3.5 seconds and the patient had some ventricular arrhythmias. When they tried to do EP study on her she became significantly apneic during anesthesia and test was aborted. Sleep apnea was suspected and patient has sleep study which proved to bepositive and she is scheduled to get CPAP machine and follows now with pulmonary medicine. She continues to have symptoms of fatigue and lack of stamina. Highly consistent with sleep apnea that is untreated. She has been seen by her PCP and was started on metformin. Apparently she became glucose intolerant. She is trying to lose weight heart but has not been successful in doing so most likely because of her sleep apnea that is untreated. * Assessment/recommendations: * 1 Constellation of symptoms of fatigue lack of stamina weight gain and inactivity caused by untreated sleep apnea. Patient is waiting for the CPAP machine to be delivered so she can start therapy. * 2 obesity, Hard to lose weight however because of untreated sleep apnea this is hard and we expect improvement when she starts therapy. * 3 hyperlipidemia on statin therapy, at the present time at a low dose, patient has intolerance to higher doses of statin * 4-history of tobacco abuse ended several months ago. * 5 status post loop recorder that picked up for pauses up to 3.5 seconds and PVCs. Electrophysiologyis following. Advised patient to leave the loop recorder in October after she gets therapy for sleep apnea to ensure resolution of the problem. Patient here for 6 month follow-up with PMCPatient here for 6 month follow-up with PMCPatient is here today for a scheduled follow up* Patient is here today for a scheduled follow up * Chief complaint: I am doing fine. * History: The patient is a 52-year-old female who is followed for syncope and near syncope, hyperlipidemia, duodenal tumor status postresection and gastric tumor status postresection and family history of coronary artery disease. She underwent implantation of a loop recorder on December 24, 2020 and presents to the office today as the device has reached elective replacement indicator. She states she underwent a sleep study on December 14, 2021 and was prescribed CPAP. She states she has notworn the CPAP for a couple of months because she lost weight and she is no longer experiencing sleep apnea. She states that she has noted an improvement in her energy level and denies dizziness, lightheadedness, near or yossi syncope, chest pain, palpitations, or shortness of breath. She is accompanied by her for today's office visit. * Physical exam: * Neurological: Alert and oriented X3. Cooperative and a pleasant demeanor. Normal power x4 extremities. * HEENT: Carotid upstrokes are 2+/4 bilaterally. No carotid bruits noted. No jugular vein distention noted at 90 degrees. * Cardiac: Regular S1 and S2. No S3, or S4. No murmurs or rubs noted. * Lungs: Clear to auscultation posterior laterally. Respirations are regular and non-labored. * Abdomen: Soft with active bowel sounds X4 quads. No hepatosplenomegaly noted. No palpable masses noted. * Extremities: Lower extremities are warm, dry, and intact. No lower extremity edema noted. DPs are 2+ bilaterally. * Left parasternal loop recorder pocket is well-healed without redness swelling or drainage. * Labs and testing: Twelve-lead EKG reveals sinus rhythm without ectopics no acute ischemic changes. QRS durations 88 ms, QT 404 ms, QTc 442 ms. Loop recorder interrogation reveals the device reached elective replacement indicator on November 23, 2022. Myoview stress test dated May 13, 2020 revealed an ejection fraction of 73% with no acute ischemic changes or infarct patterns noted. 2D echocardiogram dated February 19, 2020 revealed an ejection fraction of 65% with trace MR and TR. MRI of the brain dated December 01, 2018 revealed no active disease. * Clinical impressions: * 1. Syncope and near syncope with no significant arrhythmic events, bradycardia, tachycardia, sinus pauses or heart block status post loop recorder implant on December 24, 2020 presently at elective replacement indicator as of November 23, 2022. * 2. Mild obstructive sleep apnea with mild hypoxia per sleep study dated December 14, 2022 with recommendation for auto titration CPAP. Patient reports a weight loss of 25 to 30 pounds and states she is no longer experiencing sleep apnea. * 3. Normal left ventricular function per 2D echocardiogram dated February 19, 2020 with an ejection fraction of 65%. * 4. Negative Myoview stress test dated 2020 for ischemia or infarct patterns. * 5. MRI of the brain dated December 01, 2018 revealing no abnormalities. * 6. Remote tobacco use. * 7. Dyslipidemia. * 8. 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 * 9. Class I obesity with a BMI 32.01. * Recommendations: * 1. The patient will be scheduled for removal of the loop recorder. She will take all current medications as prescribed the day of the procedure with a small sip of water. No food to eat or drink after midnight the day of the procedure. * 2. Follow-up will be pending the clinical course. * 3. Continue lifestyle modifications as discussed. * 4. Patient will obtain a lipid panel for evaluation with further recommendations pending the results. The patient reports a history of statin intolerance. * Evaluation and note by Rachel Avalos CNP * Please excuse any errors in grammar or translation related to this dictation. Voice recognition software was utilized to prepare this document. * Patient here s/p LOOP recorder removal done by Dr. Floyd at [facility] on 01/20/23. Dr. Arredondo in suite. Patient has no cardiac complaints at time of visit. Insertion site had no swelling, discharge or ecchymosis. Steri strips are in place. Insertion site reviewed jo Davis RN prior to patient discharge. * To Dr. Floyd for review * To Dr. Arredondo to sign as in suite Chief Complaint and Reason for Visit Chief Complaint Abnormal Mammogram e78.2 e55.9 r53.82 g25.81 z79.899 z00.00 r55 z01.818 RT eye bleeding Chief Complaint e78.2 e55.9 r53.82 g 25.81 z79.899 z00.00 r55 z01.818 RT eye bleeding sleep apnea HCW w/ Symptoms chest pains, trouble breathing Unspecified sleep apnea Chief Complaint abd pain darnell, new set up Chief Complaint Cough R10.9 D3A.00 Chief Complaint Cough R10.9 D3A.00 R53.83 E11.69 E78.2 E55.9 Chief Complaint Urogenital Chief Complaint Sleep apnea annual f ollow up Chief Complaint Sleep apnea annual f ollow up R41.3 e11.69 E78.5 Chief Complaint Sleep apnea annual f ollow up R41.3 e11.69 E78.5 chest pain Chief Complaint R41.3 e11.69 E78.5 chest pain chest pain sob darnell/3 month Chief Complaint chest pain sob darnell/3 month Sore throat sore throat, headache, body aches Reason for Visit Strep pharyngitis Chief Complaint chest pain sob darnell/3 month Sore throat sore throat, headache, body aches hand pain/swelling Reason for Visit Strep pharyngitis Chief Complaint chest pain sob darnell/3 month Sore throat sore throat, headache, body aches hand pain/swelling sore throat Reason for Visit Strep pharyngitis Chief Complaint Sore throat sore throat, headache, body aches hand pain/swelling sore throat left ear pain Ref: 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 and DARNELL R91.8 J98.9 Reason for Visit Strep pharyngitis Acute streptococcal pharyngitis Sore throat Allergic rhinitis BMI 37.0-37.9, adult History of tobacco abuse Multiple pulmonary nodules Obesity Recurrent respiratory infection Chief Complaint left ear pain Ref: 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 and DARNELL R91.8 J98.9 lt side adb pain Reason for Visit Sore throat Allergic rhinitis BMI 37.0-37.9, adult History of tobacco abuse Multiple pulmonary nodules Obesity Recurrent respiratory infection Chief Complaint lt side adb pain Lower Abd Pain Chief Complaint lt side adb pain Lower Abd Pain kub Chief Complaint Admit Date sore throat, left ear ache, sores on ton juventino April 06, 2024 10:50am N20.0 April 12, 2024 1 :26pm cervical radiculopathy April 16 10:11am R91.8 April 17, 2024 12:25pm M54.2 April 17, 2024 12:31pm sore throat, ear pain, nausea April 082023 12:17pm 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 Pulm Nodules May 17, 2024 2:16pm Reason for Visit Admit Date Strep throat April 06, 2024 10:50am Cervical neck pain with evidence of disc disease April 16, 2024 10:11am Strep throat April 24, 2024 12:17pm BMI 37.0-37.9, adult May 17, 2024 2 :16pm History of tobacco abuse May 17 2:16pm Multiple pulmonary nodules May 17, 2024 2:16pm Obesity May 17, 2024 2: 16pm Recurrent respiratory infection May 17, 2024 2:16pm Chief Complaint Admit Date sore throat, left ear ache, sores on ton juventino April 06, 2024 10:50am N20.0 April 12, 2024 1 :26pm cervical radiculopathy April 16 10:11am R91.8 April 17, 2024 12:25pm M54.2 April 17, 2024 12:31pm sore throat, ear pain, nausea April 082023 12:17pm 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 Pulm Nodules May 17, 2024 2:16pm sore throat, ear pain May 19, 2024 1:39pm Reason for Visit Admit Date Strep throat April 06, 2024 10:50am Cervical neck pain with evidence of disc disease April 16, 2024 10:11am Strep throat April 24, 2024 12:17pm History of tobacco abuse May 17 2:16pm Multiple pulmonary nodules May 17, 2024 2:16pm Obesity May 17, 2024 2: 16pm Recurrent respiratory infection May 17, 2024 2:16pm Chief Complaint Admit Date sore throat, left ear ache, sores on ton juventino April 06, 2024 10:50am N20.0 April 12, 2024 1 :26pm cervical radiculopathy April 16 10:11am R91.8 April 17, 2024 12:25pm M54.2 April 17, 2024 12:31pm sore throat, ear pain, nausea April 082023 12:17pm 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 Pulm Nodules May 17, 2024 2:16pm sore throat, ear pain May 19, 2024 1:39pm sore throat May 23, 2024 9 :03am Reason for Visit Admit Date Strep throat April 06, 2024 10:50am Cervical neck pain with evidence of disc disease April 16, 2024 10:11am Strep throat April 24, 2024 12:17pm History of tobacco abuse May 17 2:16pm Multiple pulmonary nodules May 17, 2024 2:16pm Obesity May 17, 2024 2: 16pm Recurrent respiratory infection May 17, 2024 2:16pm Strep throat May 19, 2024 1 :39pm Reason for Visit Admit Date Strep throat April 06, 2024 10:50am Cervical neck pain with evidence of disc disease April 16, 2024 10:11am Strep throat April 24, 2024 12:17pm History of tobacco abuse May 17 2:16pm Multiple pulmonary nodules May 17, 2024 2:16pm Obesity May 17, 2024 2: 16pm Recurrent respiratory infection May 17, 2024 2:16pm Strep throat May 19, 2024 1 :39pm Acute pharyngitis May 23, 2024 9 :03am Chief Complaint Admit Date sore throat, left ear ache, sores on ton juventino April 06, 2024 10:50am N20.0 April 12, 2024 1 :26pm cervical radiculopathy April 16 10:11am R91.8 April 17, 2024 12:25pm M54.2 April 17, 2024 12:31pm sore throat, ear pain, nausea April 082023 12:17pm 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 Pulm Nodules May 17, 2024 2:16pm sore throat, ear pain May 19, 2024 1:39pm sore throat May 23, 2024 9 :03am J02.0 May 23, 2024 9 :43am R00.2, R06.02, R07.89, Z76.899 May 112024 12:29pm Chief Complaint Admit Date sore throat, left ear ache, sores on ton juventino April 06, 2024 10:50am N20.0 April 12, 2024 1 :26pm cervical radiculopathy April 16 10:11am R91.8 April 17, 2024 12:25pm M54.2 April 17, 2024 12:31pm sore throat, ear pain, nausea April 082023 12:17pm 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 Pulm Nodules May 17, 2024 2:16pm sore throat, ear pain May 19, 2024 1:39pm sore throat May 23, 2024 9 :03am J02.0 May 23, 2024 9 :43am R00.2, R06.02, R07.89, Z76.899 May 112024 12:29pm sore throat, poss UTI July 05 1:48pm Chief Complaint Admit Date N20.0 April 12, 2024 1 :26pm cervical radiculopathy April 16 10:11am R91.8 April 17, 2024 12:25pm M54.2 April 17, 2024 12:31pm sore throat, ear pain, nausea April 082023 12:17pm 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 Pulm Nodules May 17, 2024 2:16pm sore throat, ear pain May 19, 2024 1:39pm sore throat May 23, 2024 9 :03am J02.0 May 23, 2024 9 :43am R00.2, R06.02, R07.89, Z76.899 May 112024 12:29pm sore throat, poss UTI July 05 1:48pm Reason for Visit Admit Date Cervical neck pain with evidence of disc disease April 16, 2024 10:11am Strep throat April 24, 2024 12:17pm History of tobacco abuse May 17 2:16pm Multiple pulmonary nodules May 17, 2024 2:16pm Obesity May 17, 2024 2: 16pm Recurrent respiratory infection May 17, 2024 2:16pm Strep throat May 19, 2024 1 :39pm Acute pharyngitis May 23, 2024 9 :03am Strep throat July 05, 2024 1:48pm Urinary frequency July 05, 2024 1:48pm Chief Complaint Admit Date sore throat, ear pain, nausea April 082023 12:17pm 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 July 05, 2024 2:05pm Referred by Lala Liu July 16, 2 025 2:11pm r53.83 j02.0 July 16, 2024 2:5 8pm Reason for Visit Admit Date Strep throat April 24, 2024 12:17pm History of tobacco abuse May 17 2:16pm Multiple pulmonary nodules May 17, 2024 2:16pm Obesity May 17, 2024 2: 16pm Recurrent respiratory infection May 17, 2024 2:16pm Strep throat May 19, 2024 1 :39pm Acute pharyngitis May 23, 2024 9 :03am Strep throat July 05, 2024 1:48pm Urinary frequency July 05, 2024 1:48pm Fatigue July 16, 2024 2:1 1pm Recurrent streptococcal pharyngitis Felipe 2024 2:11pm Chief Complaint Admit Date sore throat, ear pain, nausea April 082023 12:17pm 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 July 05, 2024 2:05pm Referred by Lala Liu July 16, 2 025 2:11pm r53.83 j02.0 July 16, 2024 2:5 8pm R50.9 R53.83 J98.8 July 19, 2024 9:1 4am Sore throat July 30, 2024 2:5 4pm Reason for Visit Admit Date History of tobacco abuse May 17 2:16pm Multiple pulmonary nodules May 17, 2024 2:16pm Obesity May 17, 2024 2: 16pm Recurrent respiratory infection May 17, 2024 2:16pm Strep throat May 19, 2024 1 :39pm Acute pharyngitis May 23, 2024 9 :03am Strep throat July 05, 2024 1:48pm Urinary frequency July 05, 2024 1:48pm Fatigue July 16, 2024 2:1 1pm Recurrent streptococcal pharyngitis Felipe h 2024 2:11pm Chief Complaint Admit Date 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 July 05, 2024 2:05pm Referred by Lala Liu July 16, 2 025 2:11pm r53.83 j02.0 July 16, 2024 2:5 8pm R50.9 R53.83 J98.8 July 19, 2024 9:1 4am Sore throat July 30, 2024 2:5 4pm Patient here for a 1 month f/u August 2:40pm Reason for Visit Admit Date History of tobacco abuse May 17 2:16pm Multiple pulmonary nodules May 17, 2024 2:16pm Obesity May 17, 2024 2: 16pm Recurrent respiratory infection May 17, 2024 2:16pm Strep throat May 19, 2024 1 :39pm Acute pharyngitis May 23, 2024 9 :03am Strep throat July 05, 2024 1:48pm Urinary frequency July 05, 2024 1:48pm Fatigue July 16, 2024 2:1 1pm Recurrent streptococcal pharyngitis Felipe h 2024 2:11pm Recurrent streptococcal pharyngitis Apri l 2024 2:40pm Chief Complaint Admit Date sore throat May 23, 2024 9 :03am J02.0 May 23, 2024 9 :43am R00.2, R06.02, R07.89, Z76.899 May 112024 12:29pm sore throat, poss UTI July 05 1:48pm R30. July 05, 2024 2:05pm Referred by Lala Liu July 16, 2 025 2:11pm r53.83 j02.0 July 16, 2024 2:5 8pm R50.9 R53.83 J98.8 July 19, 2024 9:1 4am Sore throat July 30, 2024 2:5 4pm Patient here for a 1 month f/u August 2:40pm blood in stool August 18, 2024 10: 51am Reason for Visit Admit Date Acute pharyngitis May 23, 2024 9 :03am Strep throat July 05, 2024 1:48pm Urinary frequency July 05, 2024 1:48pm Fatigue July 16, 2024 2:1 1pm Recurrent streptococcal pharyngitis Felipe h 2024 2:11pm Abdominal bloating August 13, 2024 2:40 pm Constipation August 13, 2024 2:40 pm Recurrent streptococcal pharyngitis Apri l 2024 2:40pm Chief Complaint Admit Date R00.2, R06.02, R07.89, Z76.899 May 112024 12:29pm sore throat, poss UTI July 05 1:48pm R30. July 05, 2024 2:05pm Referred by Lala Liu July 16, 2 025 2:11pm r53.83 j02.0 July 16, 2024 2:5 8pm R50.9 R53.83 J98.8 July 19, 2024 9:1 4am Sore throat July 30, 2024 2:5 4pm Patient here for a 1 month f/u August 2:40pm blood in stool August 18, 2024 10: 51am J02.0 August 28, 2024 12: 19pm Reason for Visit Admit Date Strep throat July 05, 2024 1:48pm Urinary frequency July 05, 2024 1:48pm Fatigue July 16, 2024 2:1 1pm Recurrent streptococcal pharyngitis Felipe h 2024 2:11pm Neck muscle strain July 30, 2024 2:5 4pm Acute pharyngitis July 30, 2024 2:5 4pm Abdominal bloating August 13, 2024 2:40 pm Constipation August 13, 2024 2:40 pm Recurrent streptococcal pharyngitis Apri l 2024 2:40pm Chief Complaint Admit Date sore throat, poss UTI July 05 1:48pm R30. July 05, 2024 2:05pm Referred by Lala Liu July 16, 2:11pm r53.83 j02.0 July 16, 2024 2:5 8pm R50.9 R53.83 J98.8 July 19, 2024 9:1 4am Sore throat July 30, 2024 2:5 4pm Patient here for a 1 month f/u August 2:40pm blood in stool August 18, 2024 10: 51am J02.0 August 28, 2024 12: 19pm sore throat, left ear pain September 13, 2024 9:05am Reason for Visit Admit Date Strep throat July 05, 2024 1:48pm Urinary frequency July 05, 2024 1:48pm Fatigue July 16, 2024 2:1 1pm Recurrent streptococcal pharyngitis Felipe h 2024 2:11pm Neck muscle strain July 30, 2024 2:5 4pm Acute pharyngitis July 30, 2024 2:5 4pm Abdominal bloating August 13, 2024 2:40 pm Constipation August 13, 2024 2:40 pm Recurrent streptococcal pharyngitis Apri l 2024 2:40pm Viral URI September 13, 2024 9:05am Medications Administered Section Inactive Administered Medications - up to 3 most recent administrations Medication Order MAR Action Action Date Dose Rate Site NaCl 0.9% iv infusion 50 mL/hr, INTRAVENOUS, CONTINUOUS, Starting on Sarah 02/25/22 at 1300, Until Sarah 02/25/22 at 1354, Preprocedure Restarted 02/25/2022 1:01 PM EDT New Bag/Syringe/Bottle 02/25/2022 12:44 PM EDT 50 mL/hr 50 mL/hr Inactive Administered Medications - up to 3 most recent administrations Medication Order MAR Action Action Date Dose Rate Site hyoscyamine sublingual 0.125 mg tab(s) (LEVSIN SL) 0.125 mg, SUBLINGUAL, ONCE, 1 dose, On Tue12/29/22 at 1030 Given 12/29/2022 10:32 AM EDT 0.125 mg NaCl 0.9% iv infusion 50 mL/hr, INTRAVENOUS, CONTINUOUS, Starting on Tue12/29/22 at 0930, Until Tue12/29/22 at 1105, Preprocedure Restarted 12/29/2022 10:17 AM EDT Continued by Anesthesia 12/29/2022 9:47 AM EDT 50 mL/hr New Bag/Syringe/Bottle 12/29/2022 9:24 AM EDT 50 mL/hr 5 0 mL/hr Reason for Referral Specialty Diagnoses / Procedures Referred By Darline álvarez Referred To Contact Allergy Diagnoses Recurrent infections Procedures CONSULT TO ALLERGY/IMMUNOLOGY OFFICE/OUTPATIENT NEW HIGH MDM 60 MINUTES Linda Valero MD [address] [place] [address] Referral ID Status Reason Start Date Expiration Date Visits Requested Visits Authorized [id number] Authorized PCP Requested Referral 4 04/27/2025 1 1 Specialty Diagnoses / Procedures Referred By Darline álvarez Referred To Contact [facility] Diagnoses Abdominal swelling Procedures ECHO ECHO TTHRC R-T 2D W/WOM-MODE COMPL SPEC&COLR D Linda Valero MD [address] [place] [address] [facility] [place] [address] [place] [id number] Referral ID Status Reason Start Date Expiration Date Visits Requested Visits Authorized [id number] New Request Auto-Generat ed Referral 4 04/27/2025 1 1 Specialty Diagnoses / Procedures Referred By Contac t Referred To Contact [facility] Diagnoses Pelvic floor dysfunction Procedures CONSULT TO PHYSICAL THERAPY PHYSICAL THERAPY EVALUATION HIGH COMPLEX 45 MINS Sol Nuñez, LABELING STRATEGIST.PHLEBOTOMY SERVICES TECHNICIAN [address] [place] [address] [facility] [place] [address] [place] [address] Referral ID Status Reason Start Date Expiration Date Visits Requested Visits Authorized [id number] Authorized Auto-Generat ed Referral 05/09/2023 05/08/2024 1 1 Specialty Diagnoses / Procedures Referred By Contac t Referred To Contact CT IMAGING Diagnoses Interstitial pulmonary disease (HCC) Procedures CT CHEST WO IVCON DIAGNOSTIC COMPUTED TOMOGRAPHY THORAX W/O CNTRST Annemarie Judd MD [address] [place] [address] [address] [address] Ct Imaging [id number] Referral ID Status Reason Start Date Expiration Date V isits Requested Visits Authorized [id number] Closed Auto-Generate d Referral 07/20/2023 08/19/2023 1 1 Specialty Diagnoses / Procedures Referred By Contac t Referred To Contact CT IMAGING Diagnoses Malignant carcinoid tumor of duodenum (HCC) Procedures CT ABD/PEL W IVCON CT ABD & PELVIS W/CONTRAST Annemarie Judd MD [address] [place] [address] [address] [address] Ct Imaging [id number] Referral ID Status Reason Start Date Expiration Date Visits Requested Visits Authorized [id number] Authorized Auto-Generat ed Referral 03/15/2023 04/14/2023 1 1 Additional Source Comments INFORMATION SOURCE (unrecogn ized section and content) DATE CREATED AUTHOR 06/29/2019 [facility] DATE CREATED AUTHOR AUTHOR'S ORGANIZ ATION 02/08/2022 [facility] dical Specialist DATE CREATED AUTHOR AUTHOR'S ORGANIZ ATION 12/11/2022 [facility] DATE CREATED AUTHOR AUTHOR'S ORGANIZ ATION 12/31/2022 [facility] DATE CREATED AUTHOR AUTHOR'S ORGANIZ ATION 01/28/2023 [facility] DATE CREATED AUTHOR AUTHOR'S ORGANIZ ATION 01/29/2023 [facility] DATE CREATED AUTHOR AUTHOR'S ORGANIZ ATION 07/08/2023 [facility] DATE CREATED AUTHOR AUTHOR'S ORGANIZ ATION 06/12/[address] [facility] DATE CREATED AUTHOR AUTHOR'S ORGANIZ ATION 07/31/2024 [facility] DATE CREATED AUTHOR AUTHOR'S ORGANIZ ATION 08/24/2024 [facility] dical [facility] DATE CREATED AUTHOR AUTHOR'S ORGANIZ ATION 09/13/2024 [facility] DATE CREATED AUTHOR AUTHOR'S ORGANIZ ATION 09/22/2024 [facility] Source Comments (unrecognize d section and content) In the event this informatio n is protected by the Federal Confidentiality of Alcohol and Drug Abuse Patient Records regulations: The Federal rules restrict any use of the information to criminally investigate or prosecute any alcohol or drug abuse patient.[facility] the event this information is protected by the Federal Confidentiality of Alcohol and Drug Abuse Patient Records regulations: The Federal rules restrict any use of the information to criminally investigate or prosecute any alcohol or drug abuse patient.[facility] HospitalIn the event this information is protected by the Federal Confidentiality of Alcohol and Drug Abuse Patient Records regulations: The Federal rules restrict any use of the information to criminally investigate or prosecute any alcohol or drug abuse patient.[facility] HospitalIn the event this information is protected by the Federal Confidentiality of Alcohol and Drug Abuse Patient Records regulations: The Federal rules restrict any use of the information to criminally investigate or prosecute any alcohol or drug abuse patient.[facility] HospitalIn the event this information is protected by the Federal Confidentiality of Alcohol and Drug Abuse Patient Records regulations: The Federal rules restrict any use of the information to criminally investigate or prosecute any alcohol or drug abuse patient.[facility] HospitalIn the event this information is protected by the Federal Confidentiality of Alcohol and Drug Abuse Patient Records regulations: The Federal rules restrict any use of the information to criminally investigate or prosecute any alcohol or drug abuse patient.[facility] HospitalIn the event this information is protected by the Federal Confidentiality of Alcohol and Drug Abuse Patient Records regulations: The Federal rules restrict any use of the information to criminally investigate or prosecute any alcohol or drug abuse patient.[facility] HospitalIn the event this information is protected by the Federal Confidentiality of Alcohol and Drug Abuse Patient Records regulations: The Federal rules restrict any use of the information to criminally investigate or prosecute any alcohol or drug abuse patient.[facility] HospitalIn the event this information is protected by the Federal Confidentiality of Alcohol and Drug Abuse Patient Records regulations: The Federal rules restrict any use of the information to criminally investigate or prosecute any alcohol or drug abuse patient.[facility] HospitalIn the event this information is protected by the Federal Confidentiality of Alcohol and Drug Abuse Patient Records regulations: The Federal rules restrict any use of the information to criminally investigate or prosecute any alcohol or drug abuse patient.[facility] HospitalIn the event this information is protected by the Federal Confidentiality of Alcohol and Drug Abuse Patient Records regulations: The Federal rules restrict any use of the information to criminally investigate or prosecute any alcohol or drug abuse patient.[facility] HospitalIn the event this information is protected by the Federal Confidentiality of Alcohol and Drug Abuse Patient Records regulations: The Federal rules restrict any use of the information to criminally investigate or prosecute any alcohol or drug abuse patient.[facility] HospitalIn the event this information is protected by the Federal Confidentiality of Alcohol and Drug Abuse Patient Records regulations: The Federal rules restrict any use of the information to criminally investigate or prosecute any alcohol or drug abuse patient.[facility] HospitalIn the event this information is protected by the Federal Confidentiality of Alcohol and Drug Abuse Patient Records regulations: The Federal rules restrict any use of the information to criminally investigate or prosecute any alcohol or drug abuse patient.[facility] HospitalIn the event this information is protected by the Federal Confidentiality of Alcohol and Drug Abuse Patient Records regulations: The Federal rules restrict any use of the information to criminally investigate or prosecute any alcohol or drug abuse patient.[facility] HospitalIn the event this information is protected by the Federal Confidentiality of Alcohol and Drug Abuse Patient Records regulations: The Federal rules restrict any use of the information to criminally investigate or prosecute any alcohol or drug abuse patient.[facility] HospitalIn the event this information is protected by the Federal Confidentiality of Alcohol and Drug Abuse Patient Records regulations: The Federal rules restrict any use of the information to criminally investigate or prosecute any alcohol or drug abuse patient.[facility] HospitalIn the event this information is protected by the Federal Confidentiality of Alcohol and Drug Abuse Patient Records regulations: The Federal rules restrict any use of the information to criminally investigate or prosecute any alcohol or drug abuse patient.[facility] HospitalIn the event this information is protected by the Federal Confidentiality of Alcohol and Drug Abuse Patient Records regulations: The Federal rules restrict any use of the information to criminally investigate or prosecute any alcohol or drug abuse patient.[facility] HospitalIn the event this information is protected by the Federal Confidentiality of Alcohol and Drug Abuse Patient Records regulations: The Federal rules restrict any use of the information to criminally investigate or prosecute any alcohol or drug abuse patient.[facility] HospitalIn the event this information is protected by the Federal Confidentiality of Alcohol and Drug Abuse Patient Records regulations: The Federal rules restrict any use of the information to criminally investigate or prosecute any alcohol or drug abuse patient.[facility] HospitalIn the event this information is protected by the Federal Confidentiality of Alcohol and Drug Abuse Patient Records regulations: The Federal rules restrict any use of the information to criminally investigate or prosecute any alcohol or drug abuse patient.[facility] HospitalIn the event this information is protected by the Federal Confidentiality of Alcohol and Drug Abuse Patient Records regulations: The Federal rules restrict any use of the information to criminally investigate or prosecute any alcohol or drug abuse patient.[facility] HospitalIn the event this information is protected by the Federal Confidentiality of Alcohol and Drug Abuse Patient Records regulations: The Federal rules restrict any use of the information to criminally investigate or prosecute any alcohol or drug abuse patient.[facility] HospitalIn the event this information is protected by the Federal Confidentiality of Alcohol and Drug Abuse Patient Records regulations: The Federal rules restrict any use of the information to criminally investigate or prosecute any alcohol or drug abuse patient.[facility] HospitalIn the event this information is protected by the Federal Confidentiality of Alcohol and Drug Abuse Patient Records regulations: The Federal rules restrict any use of the information to criminally investigate or prosecute any alcohol or drug abuse patient.[facility] HospitalIn the event this information is protected by the Federal Confidentiality of Alcohol and Drug Abuse Patient Records regulations: The Federal rules restrict any use of the information to criminally investigate or prosecute any alcohol or drug abuse patient.[facility] HospitalIn the event this information is protected by the Federal Confidentiality of Alcohol and Drug Abuse Patient Records regulations: The Federal rules restrict any use of the information to criminally investigate or prosecute any alcohol or drug abuse patient.[facility] HospitalIn the event this information is protected by the Federal Confidentiality of Alcohol and Drug Abuse Patient Records regulations: The Federal rules restrict any use of the information to criminally investigate or prosecute any alcohol or drug abuse patient.[facility] HospitalIn the event this information is protected by the Federal Confidentiality of Alcohol and Drug Abuse Patient Records regulations: The Federal rules restrict any use of the information to criminally investigate or prosecute any alcohol or drug abuse patient.[facility] HospitalIn the event this information is protected by the Federal Confidentiality of Alcohol and Drug Abuse Patient Records regulations: The Federal rules restrict any use of the information to criminally investigate or prosecute any alcohol or drug abuse patient.[facility] HospitalIn the event this information is protected by the Federal Confidentiality of Alcohol and Drug Abuse Patient Records regulations: The Federal rules restrict any use of the information to criminally investigate or prosecute any alcohol or drug abuse patient.[facility] HospitalIn the event this information is protected by the Federal Confidentiality of Alcohol and Drug Abuse Patient Records regulations: The Federal rules restrict any use of the information to criminally investigate or prosecute any alcohol or drug abuse patient.[facility] HospitalIn the event this information is protected by the Federal Confidentiality of Alcohol and Drug Abuse Patient Records regulations: The Federal rules restrict any use of the information to criminally investigate or prosecute any alcohol or drug abuse patient.[facility] HospitalIn the event this information is protected by the Federal Confidentiality of Alcohol and Drug Abuse Patient Records regulations: The Federal rules restrict any use of the information to criminally investigate or prosecute any alcohol or drug abuse patient.[facility] HospitalIn the event this information is protected by the Federal Confidentiality of Alcohol and Drug Abuse Patient Records regulations: The Federal rules restrict any use of the information to criminally investigate or prosecute any alcohol or drug abuse patient.[facility] HospitalIn the event this information is protected by the Federal Confidentiality of Alcohol and Drug Abuse Patient Records regulations: The Federal rules restrict any use of the information to criminally investigate or prosecute any alcohol or drug abuse patient.[facility] HospitalIn the event this information is protected by the Federal Confidentiality of Alcohol and Drug Abuse Patient Records regulations: The Federal rules restrict any use of the information to criminally investigate or prosecute any alcohol or drug abuse patient.[facility] HospitalIn the event this information is protected by the Federal Confidentiality of Alcohol and Drug Abuse Patient Records regulations: The Federal rules restrict any use of the information to criminally investigate or prosecute any alcohol or drug abuse patient.[facility] HospitalIn the event this information is protected by the Federal Confidentiality of Alcohol and Drug Abuse Patient Records regulations: The Federal rules restrict any use of the information to criminally investigate or prosecute any alcohol or drug abuse patient.[facility] HospitalIn the event this information is protected by the Federal Confidentiality of Alcohol and Drug Abuse Patient Records regulations: The Federal rules restrict any use of the information to criminally investigate or prosecute any alcohol or drug abuse patient.[facility] HospitalIn the event this information is protected by the Federal Confidentiality of Alcohol and Drug Abuse Patient Records regulations: The Federal rules restrict any use of the information to criminally investigate or prosecute any alcohol or drug abuse patient.[facility] HospitalIn the event this information is protected by the Federal Confidentiality of Alcohol and Drug Abuse Patient Records regulations: The Federal rules restrict any use of the information to criminally investigate or prosecute any alcohol or drug abuse patient.[facility] HospitalIn the event this information is protected by the Federal Confidentiality of Alcohol and Drug Abuse Patient Records regulations: The Federal rules restrict any use of the information to criminally investigate or prosecute any alcohol or drug abuse patient.[facility] HospitalIn the event this information is protected by the Federal Confidentiality of Alcohol and Drug Abuse Patient Records regulations: The Federal rules restrict any use of the information to criminally investigate or prosecute any alcohol or drug abuse patient.[facility] HospitalIn the event this information is protected by the Federal Confidentiality of Alcohol and Drug Abuse Patient Records regulations: The Federal rules restrict any use of the information to criminally investigate or prosecute any alcohol or drug abuse patient.[facility] HospitalIn the event this information is protected by the Federal Confidentiality of Alcohol and Drug Abuse Patient Records regulations: The Federal rules restrict any use of the information to criminally investigate or prosecute any alcohol or drug abuse patient.[facility] HospitalIn the event this information is protected by the Federal Confidentiality of Alcohol and Drug Abuse Patient Records regulations: The Federal rules restrict any use of the information to criminally investigate or prosecute any alcohol or drug abuse patient.[facility] HospitalIn the event this information is protected by the Federal Confidentiality of Alcohol and Drug Abuse Patient Records regulations: The Federal rules restrict any use of the information to criminally investigate or prosecute any alcohol or drug abuse patient.[facility] HospitalIn the event this information is protected by the Federal Confidentiality of Alcohol and Drug Abuse Patient Records regulations: The Federal rules restrict any use of the information to criminally investigate or prosecute any alcohol or drug abuse patient.[facility] HospitalIn the event this information is protected by the Federal Confidentiality of Alcohol and Drug Abuse Patient Records regulations: The Federal rules restrict any use of the information to criminally investigate or prosecute any alcohol or drug abuse patient.[facility] HospitalIn the event this information is protected by the Federal Confidentiality of Alcohol and Drug Abuse Patient Records regulations: The Federal rules restrict any use of the information to criminally investigate or prosecute any alcohol or drug abuse patient.[facility] HospitalIn the event this information is protected by the Federal Confidentiality of Alcohol and Drug Abuse Patient Records regulations: The Federal rules restrict any use of the information to criminally investigate or prosecute any alcohol or drug abuse patient.[facility] HospitalIn the event this information is protected by the Federal Confidentiality of Alcohol and Drug Abuse Patient Records regulations: The Federal rules restrict any use of the information to criminally investigate or prosecute any alcohol or drug abuse patient.[facility] HospitalIn the event this information is protected by the Federal Confidentiality of Alcohol and Drug Abuse Patient Records regulations: The Federal rules restrict any use of the information to criminally investigate or prosecute any alcohol or drug abuse patient.[facility] HospitalIn the event this information is protected by the Federal Confidentiality of Alcohol and Drug Abuse Patient Records regulations: The Federal rules restrict any use of the information to criminally investigate or prosecute any alcohol or drug abuse patient.[facility] HospitalIn the event this information is protected by the Federal Confidentiality of Alcohol and Drug Abuse Patient Records regulations: The Federal rules restrict any use of the information to criminally investigate or prosecute any alcohol or drug abuse patient.[facility] HospitalIn the event this information is protected by the Federal Confidentiality of Alcohol and Drug Abuse Patient Records regulations: The Federal rules restrict any use of the information to criminally investigate or prosecute any alcohol or drug abuse patient.[facility] HospitalIn the event this information is protected by the Federal Confidentiality of Alcohol and Drug Abuse Patient Records regulations: The Federal rules restrict any use of the information to criminally investigate or prosecute any alcohol or drug abuse patient.[facility] HospitalIn the event this information is protected by the Federal Confidentiality of Alcohol and Drug Abuse Patient Records regulations: The Federal rules restrict any use of the information to criminally investigate or prosecute any alcohol or drug abuse patient.[facility] HospitalIn the event this information is protected by the Federal Confidentiality of Alcohol and Drug Abuse Patient Records regulations: The Federal rules restrict any use of the information to criminally investigate or prosecute any alcohol or drug abuse patient.[facility] HospitalIn the event this information is protected by the Federal Confidentiality of Alcohol and Drug Abuse Patient Records regulations: The Federal rules restrict any use of the information to criminally investigate or prosecute any alcohol or drug abuse patient.[facility] HospitalIn the event this information is protected by the Federal Confidentiality of Alcohol and Drug Abuse Patient Records regulations: The Federal rules restrict any use of the information to criminally investigate or prosecute any alcohol or drug abuse patient.[facility] HospitalIn the event this information is protected by the Federal Confidentiality of Alcohol and Drug Abuse Patient Records regulations: The Federal rules restrict any use of the information to criminally investigate or prosecute any alcohol or drug abuse patient.[facility] HospitalIn the event this information is protected by the Federal Confidentiality of Alcohol and Drug Abuse Patient Records regulations: The Federal rules restrict any use of the information to criminally investigate or prosecute any alcohol or drug abuse patient.[facility] HospitalIn the event this information is protected by the Federal Confidentiality of Alcohol and Drug Abuse Patient Records regulations: The Federal rules restrict any use of the information to criminally investigate or prosecute any alcohol or drug abuse patient.[facility] HospitalIn the event this information is protected by the Federal Confidentiality of Alcohol and Drug Abuse Patient Records regulations: The Federal rules restrict any use of the information to criminally investigate or prosecute any alcohol or drug abuse patient.[facility] HospitalIn the event this information is protected by the Federal Confidentiality of Alcohol and Drug Abuse Patient Records regulations: The Federal rules restrict any use of the information to criminally investigate or prosecute any alcohol or drug abuse patient.[facility] HospitalIn the event this information is protected by the Federal Confidentiality of Alcohol and Drug Abuse Patient Records regulations: The Federal rules restrict any use of the information to criminally investigate or prosecute any alcohol or drug abuse patient.[facility] HospitalIn the event this information is protected by the Federal Confidentiality of Alcohol and Drug Abuse Patient Records regulations: The Federal rules restrict any use of the information to criminally investigate or prosecute any alcohol or drug abuse patient.[facility] HospitalIn the event this information is protected by the Federal Confidentiality of Alcohol and Drug Abuse Patient Records regulations: The Federal rules restrict any use of the information to criminally investigate or prosecute any alcohol or drug abuse patient.[facility] HospitalIn the event this information is protected by the Federal Confidentiality of Alcohol and Drug Abuse Patient Records regulations: The Federal rules restrict any use of the information to criminally investigate or prosecute any alcohol or drug abuse patient.[facility] HospitalIn the event this information is protected by the Federal Confidentiality of Alcohol and Drug Abuse Patient Records regulations: The Federal rules restrict any use of the information to criminally investigate or prosecute any alcohol or drug abuse patient.[facility] the event this information is protected by the Federal Confidentiality of Alcohol and Drug Abuse Patient Records regulations: The Federal rules restrict any use of the information to criminally investigate or prosecute any alcohol or drug abuse patient.[facility] the event this information is protected by the Federal Confidentiality of Alcohol and Drug Abuse Patient Records regulations: The Federal rules restrict any use of the information to criminally investigate or prosecute any alcohol or drug abuse patient.[facility] the event this information is protected by the Federal Confidentiality of Alcohol and Drug Abuse Patient Records regulations: The Federal rules restrict any use of the information to criminally investigate or prosecute any alcohol or drug abuse patient.[facility] the event this information is protected by the Federal Confidentiality of Alcohol and Drug Abuse Patient Records regulations: The Federal rules restrict any use of the information to criminally investigate or prosecute any alcohol or drug abuse patient.[facility] the event this information is protected by the Federal Confidentiality of Alcohol and Drug Abuse Patient Records regulations: The Federal rules restrict any use of the information to criminally investigate or prosecute any alcohol or drug abuse patient.[facility] the event this information is protected by the Federal Confidentiality of Alcohol and Drug Abuse Patient Records regulations: The Federal rules restrict any use of the information to criminally investigate or prosecute any alcohol or drug abuse patient.[facility] Reason for Visit (unrecogniz ed section and content) Reason Comments Lab Orders Follow Up Reason Comments Appointment Reason Comments Medication Question Creon Reason Comments stomach cancer Reason Comments Nutrition Assessment Reason Comments Orders Reason Comments ER F/U [facility] ER on 02/06 10/28Onset of symptoms was Tuesday, patient states she was having muscle spasms in her stomach, burning sensation and nausea. ER wanted patient to follow up with Gastro. White blood count was high, and she had blood in her urine. Diagnosed 3 kidney stones in ER. Abdominal Pain Pain in mid abdomen, patient reports bloating and burning in esophagus and throat. Medication from ER is helping some. 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 Referred by Oncologist.Has a lump growing on throat see on ultrasound. Specialty Diagnoses / Procedures Referred By Darline álvarez Referred To Contact Ent - Otolaryngology Diagnoses Thyroid nodule greater than or equal to 1.5 cm in diameter incidentally noted on imaging study Procedures CONSULT TO ENT OFFICE/OUTPATIENT FOR[facility]LY [facility], [facility]1983 MDM 60-74 MINUTES Annemarie Judd MD [address] [place] [address] [address] [place] [address] Referral ID Status Reason Start Date Expiration Date V isits Requested Visits Authorized [id number] Closed PCP Requested Referral 09/13/2022 09/13/2023 1 1 Reason Comments Patient Question Orders Reason Comments 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 is here today for [facility] ER follow up Pt. Was seen in the ER for abdominal distention and Pneumonia. 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, hand swelling and weight gain ongoing 8 months Specialty Diagnoses / Procedures Referred By Contac t Referred To Contact Endocrinology Diagnoses Abdominal bloating Detroit's syndrome (HCC) Weight gain Procedures CONSULT TO ENDOCRINOLOGY OFFICE/OUTPATIENT [facility] MDM 60 MINUTES Naty Booker Jr., DO [address] [place] [address] [address] [address] [place] [address] Referral ID Status Reason Start Date Expiration Date V isits Requested Visits Authorized [id number] Closed PCP Requested Referral 08/05/2023 08/04/2024 1 1 Reason Comments New Patient Reason Comments Breath Hydrogen Test Reason Comments Gas Reason Comments Radiology CT Specialty Diagnoses / Procedures Referred By Contac t Referred To Contact CT IMAGING Diagnoses Malignant carcinoid tumor of duodenum (HCC) Procedures CT CHEST W IVCON DIAGNOSTIC COMPUTED TOMOGRAPHY THORAX W/CONTRAST Annemarie Judd MD [address] [place] [address] Ct Imaging [id number] Referral ID Status Reason Start Date Expiration Date V isits Requested Visits Authorized [id number] Closed Auto-Generate d Referral 10/31/2023 11/30/2023 1 1 Reason Comments Radio Gen RMP Specialty Diagnoses / Procedures Referred By Contac t Referred To Contact XR IMAGING Diagnoses LLQ pain Constipation, unspecified constipation type Procedures XR ABDOMEN 1V SUPINE RADIOLOGIC EXAM ABDOMEN 1 VIEW Lala Carbajal MD, PhD [address] [place] [address] Xr Imaging [place] [address] Referral ID Status Reason Start Date Expiration Date V isits Requested Visits Authorized [id number] Closed Auto-Generate d Referral 12/09/2023 01/07/2025 1 1 Reason Comments Radiology NM Specialty Diagnoses / Procedures Referred By Contac t Referred To Contact CT IMAGING Diagnoses Interstitial pulmonary disease (HCC) Procedures CT CHEST WO IVCON DIAGNOSTIC COMPUTED TOMOGRAPHY THORAX W/O CNTRST Annemarie Judd MD [address] [place] [address] Ct Imaging [facility] Referral ID Status Reason Start Date Expiration Date V isits Requested Visits Authorized [id number] Closed Auto-Generate d Referral 07/20/2023 08/19/2023 1 1 Reason Comments Lab Orders Reason Comments Radiology CT Specialty Diagnoses / Procedures Referred By Contac t Referred To Contact CT IMAGING Diagnoses Malignant carcinoid tumor of duodenum (HCC) Procedures CT ABD/PEL W IVCON CT ABD & PELVIS W/CONTRAST Annemarie Judd MD [address] [place] [address] Ct Imaging [facility] Referral ID Status Reason Start Date Expiration Date V isits Requested Visits Authorized [id number] Closed Auto-Generate d Referral 03/15/2023 04/14/2023 1 1 Specialty Diagnoses / Procedures Referred By Contac t Referred To Contact CT IMAGING Diagnoses Malignant carcinoid tumor of duodenum (HCC) Procedures CT CHEST WO IVCON DIAGNOSTIC COMPUTED TOMOGRAPHY THORAX W/O CNTRST Annemarie Judd MD [address] [place] [address] [address] [place] [address] Ct Imaging [facility] Referral ID Status Reason Start Date Expiration Date V isits Requested Visits Authorized [id number] Closed Auto-Generate d Referral 05/05/2023 06/04/2023 1 1 Reason Comments discuss weight loss med Patient presents today to discuss getting back on weight loss medication Reason Comments Arthritis Reason Comments Patient Request Reason Comments Manometry Specialty Diagnoses / Procedures Referred By Contac t Referred To Contact [facility] Diagnoses Abdominal bloating FH: colon cancer Procedures [facility] ANORECTAL MANOMETRY ANORECTAL MANOMETRY Lala Carbajal MD, PhD [address] [place] [id number] [facility] [place] [address] [place] [address] Referral ID Status Reason Start Date Expiration Date V isits Requested Visits Authorized [id number] Closed Auto-Generate d Referral 12/09/2023 12/08/2024 1 1 Reason Comments Family History Of Cancer Reason Comments Skin Check Suspicious Skin Lesion Reason Comments Sore Throat Pt was seen at fo r positive strep on 04/06, taking meds and not feeling better. She was put on augmentin and finished this today. She has had nausea and diarrhea. Specialty Diagnoses / Procedures Referred By Contac t Referred To Contact Rheumatology Diagnoses Polyarthralgia Procedures OFFICE/OUTPATIENT NEW HIGH MDM 60 MINUTES [id number] (SNOMED CT) - AMB REFERRAL TO RHEUMATOLOGY Rachael Banegas CNP [address] [place] [address] Chelsy Belle MD [address] [place] [address] Referral ID Status Reason Start Date Expiration Date V isits Requested Visits Authorized [id number] Pending Review 03/08/2024 09/04/2024 1 1 Reason Comments PT Eval Specialty Diagnoses / Procedures Referred By Contac t Referred To Contact Physical Therapy / PHYSICAL THERAPY Diagnoses Not sure Procedures NEW RS PT PELVIC PAIN/INCONT Sol Nuñez, LABELING STRATEGIST.PHLEBOTOMY SERVICES TECHNICIAN [address] [place] [address] Danica Jackson, PT [address] [place] [address] Referral ID Status Reason Start Date Expiration Date Visits Re quested Visits Authorized [id number] Closed 05/09/2024 05/08/2025 1 1 Reason Comments Consult Specialty Diagnoses / Procedures Referred By Contac t Referred To Contact Allergy Diagnoses Recurrent infections Procedures CONSULT TO ALLERGY/IMMUNOLOGY OFFICE/OUTPATIENT [facility] 60 MINUTES Linda Valero MD [address] [place] [phone] Referral ID Status Reason Start Date Expiration Date V isits Requested Visits Authorized [id number] Closed PCP Requested Referral 04/27/2024 04/27/2025 1 1 Reason Comments Physical Therapy Specialty Diagnoses / Procedures Referred By Contac t Referred To Contact [facility] Diagnoses Pelvic floor dysfunction Pelvic floor tension Procedures PT REHAB FOLLOW UP ORDER THERAPEUTIC EXERCISES RE, EA 15 MIN. Sol Nuñez, IGNACIA.PHLEBOTOMY SERVICES TECHNICIAN [address] [place] [address] [place] [address] [place] [address] Referral ID Status Reason Start Date Expiration Date Visits Requested Visits Authorized [id number] Authorized PCP Requested Referral Auto-Generate d Referral 05/14/2024 08/12/2024 8 8 Reason Comments recurring strep And recurring swolle n glands. Is on ATB now for more than 10 days10 days. Started with Augmentin, switched to Ceftin. Reason Comments Follow-up Palpitations, hypert ension. Last seen Rachel Vásquez 2022 Specialty Diagnoses / Procedures Referred By Contac t Referred To Contact Diagnoses Palpitations Sensation of chest pressure Shortness of breath Encounter to establish care with new doctor Procedures ECG 12 Lead Trinity Monet MD [address] [place] [address] Phone: tel: fax: Referral ID Status Reason Start Date Expiration Date V isits Requested Visits Authorized [id number] Authorized 06/08/2024 06/08/2025 1 1 Reason Comments Patient Update Patient Question Reason Comments Sore Throat Reason Comments PT Progress Note Specialty Diagnoses / Procedures Referred By Contac t Referred To Contact [facility] Diagnoses Pelvic floor dysfunction Pelvic floor tension Procedures PT REHAB FOLLOW UP ORDER THERAPEUTIC EXERCISES RE, EA 15 MIN. Sol Nuñez, LABELING STRATEGIST.PHLEBOTOMY SERVICES TECHNICIAN [address] [place] [address] Phone: tel: [place] [address] [place] [address] Phone: tel: Referral ID Status Reason Start Date Expiration Date Visits Requested Visits Authorized [id number] Authorized PCP Requested Referral Auto-Generate d Referral 05/14/2024 08/12/2024 8 8 Reason Onset Date Comments Vaginitis/Bacterial Vaginosis 08/16/2024 Reason Comments Weight Management Pt is being seen tod ay for weight mangement. Pt has tried Ozempic but had stomach issues. Has also tried Adipex and said she lost the weight but once she stopped, she gained it back and more. Pt is against needles. Reason Comments Med Refill Care Teams (unrecognized sec tion and content) Team Status: Active Member Role Status Dates Trey Brown DO Primary Care Provider Active Team Status: Inactive Member Role Status Dates Trey Brown DO Primary Care Provider Active David Mei MD Emergency Provider Active Team Status: Inactive Member Role Status Dates Trey Brown DO Primary Care Provider, Sandy jacinto Active Team Status: Inactive Member Role Status Dates Trey Brown DO Primary Care Provider Active Ryan Huynh DO Attending Provider Active Team Status: Inactive Member Role Status Dates Trey Brown DO Primary Care Provider Active Hernando Hylton PA-C Attending Provider Active Choker Hooker Relationship Specialty Start Date End Date Stephanie, Trey Jabier, DO [address] [place] [address] PCP - General Internal Medicine 04/12/17 Naty Booker Jr. [address] [place] [address] Referring Gastroenterology 03/29/17 Team Status: Inactive Member Role Status Dates Trey Brown , Primary Care Provider Active Abena Diane APRN Emergency Provider Active Team Status: Inactive Member Role Status Dates Trey Brown , Primary Care Provider Active Susana Floyd MD Attending Provider Active Team Status: Inactive Member Role Status Dates Trey Brown , DO Primary Care Provider, Attending Devan jacinto Active Susana Floyd MD Referring Provider Active Team Status: Inactive Member Role Status Dates Trey Brown , Primary Care Provider Active Paz Elliott , DO Attending Provider Active Team Status: Inactive Member Role Status Dates Trey Brown , Primary Care Provider Active Alexander Cha , DO Emergency Provider Active Team Status: Inactive Member Role Status Dates Trey Brown , Primary Care Provider Active Raad Leigh , DO [facility] Attending Provider Active Team Status: Inactive Member Role Status Dates Trey Brown , Primary Care Provider Active Bharti Humphrey MD Attending Provider Active Team Status: Inactive Member Role Status Dates Trey Brown DO Primary Care Provider Active Referral Self Attending Provider Active Choker Hooker Relationship Specialty Start Date End Date Stephanie Trey Jabier, DO [address] [place] [address] PCP - General Internal Medicine 04/12/17 Naty Booker Jr., DO [address] [place] [address] Referring Gastroenterology 03/29/17 Choker Hooker Relationship Specialty Start Date End Date Trey Brown, DO [address] [place] [address] PCP - General Internal Medicine 04/12/17 Naty Booker Jr., DO [address] [place] [address] Referring Gastroenterology 03/29/17 Choker Hooker Relationship Specialty Start Date End Date Trey Brown, DO [address] [place] [address] PCP - General Internal Medicine 04/12/17 Naty Booker Jr., DO [address] [place] [address] Referring Gastroenterology 03/29/17 Choker Hooker Relationship Specialty Start Date End Date Trey Brown, DO [address] [place] [address] PCP - General Internal Medicine 04/12/17 Naty Booker Jr., DO [address] [place] [address] Referring Gastroenterology 03/29/17 Choker Hooker Relationship Specialty Start Date End Date Stephanie Trey Jabier, DO [address] [place] [address] PCP - General Internal Medicine 04/12/17 Naty Booker Jr., DO [address] [place] [address] Referring Gastroenterology 03/29/17 Choker Hooker Relationship Specialty Start Date End Date Tato Brownrey Jabier, DO [address] [place] [address] PCP - General Internal Medicine 04/12/17 Naty Booker Jr., DO [address] [place] [address] Referring Gastroenterology 03/29/17 Choker Hooker Relationship Specialty Start Date End Date Trey Brown, DO [address] [place] [address] PCP - General Internal Medicine 04/12/17 Naty Booker Jr., DO [address] [place] [address] Referring Gastroenterology 03/29/17 Choker Hooker Relationship Specialty Start Date End Date Trey Brown, DO [address] [place] [address] PCP - General Internal Medicine 04/12/17 Naty Booker Jr., DO [address] [place] [address] Referring Gastroenterology 03/29/17 Choker Hooker Relationship Specialty Start Date End Date Trey Brown, DO [address] [place] [address] PCP - General Internal Medicine 04/12/17 Naty Booker Jr., DO [address] [place] [address] Referring Gastroenterology 03/29/17 Choker Hooker Relationship Specialty Start Date End Date Trey Brown, DO [address] [place] [address] PCP - General Internal Medicine 04/12/17 Naty Booker Jr., DO [address] [place] [address] Referring Gastroenterology 03/29/17 Choker Hooker Relationship Specialty Start Date End Date Tato Brownrey Jabier, DO [address] [place] [address] PCP - General Internal Medicine 04/12/17 Naty Booker Jr., DO [address] [place] [address] Referring Gastroenterology 03/29/17 Team Status: Inactive Member Role Status Dates Trey Brown , Primary Care Provider Active Renu Oquendo APRN [facility] Attending Provider Active Team Status: Inactive Member Role Status Dates Trey Brown , Primary Care Provider Active Seamus Monaco DO Emergency Provider Active Choker Hooker Relationship Specialty Start Date End Date Trey Brown, DO [address] [place] [address] PCP - General Internal Medicine 04/12/17 Naty Booker Jr., DO [address] [place] [address] Referring Gastroenterology 03/29/17 Choker Hooker Relationship Specialty Start Date End Date Trey Brown, DO [address] [place] [address] PCP - General Internal Medicine 04/12/17 Naty Booker Jr., DO [address] [place] [address] Referring Gastroenterology 03/29/17 Choker Hooker Relationship Specialty Start Date End Date Trey Brown, DO [address] [place] [address] PCP - General Internal Medicine 04/12/17 Naty Booker Jr., DO [address] [place] [address] Referring Gastroenterology 03/29/17 Choker Hooker Relationship Specialty Start Date End Date Trey Brown, DO [address] [place] [address] PCP - General Internal Medicine 04/12/17 Naty Booker Jr., DO [address] [place] [address] Referring Gastroenterology 03/29/17 Choker Hooker Relationship Specialty Start Date End Date Trey Brown, DO [address] [place] [address] PCP - General Internal Medicine 04/12/17 Naty Booker Jr., DO [address] [place] [address] Referring Gastroenterology 03/29/17 Choker Hooker Relationship Specialty Start Date End Date Trey Brown, DO [address] [place] [address] PCP - General Internal Medicine 04/12/17 Naty Bokoer Jr., DO [address] [place] [address] Referring Gastroenterology 03/29/17 Choker Hooker Relationship Specialty Start Date End Date Trey Brown, DO [address] [place] [address] PCP - General Internal Medicine 04/12/17 Naty Booker Jr., DO [address] [place] [address] Referring Gastroenterology 03/29/17 Choker Hooker Relationship Specialty Start Date End Date Stephanie Trey Jabier, DO [address] [place] [address] PCP - General Internal Medicine 04/12/17 Naty Booker Jr., DO [address] [place] [address] Referring Gastroenterology 03/29/17 Choker Hooker Relationship Specialty Start Date End Date Trey Brown, DO [address] [place] [address] PCP - General Internal Medicine 04/12/17 Naty Booker Jr., DO [address] [place] [address] Referring Gastroenterology 03/29/17 Choker Hooker Relationship Specialty Start Date End Date Trey Brown DO [address] [place] [address] PCP - General Internal Medicine 04/12/17 Naty Booker Jr., DO [address] [place] [address] [place] [address] Referring Gastroenterology 03/29/17 Choker Hooker Relationship Specialty Start Date End Date Trey Brown, [address] [place] [address] PCP - General Internal Medicine 04/12/17 Naty Booker Jr., DO [address] [place] [address] [place] [address] Referring Gastroenterology 03/29/17 Team Status: Inactive Member Role Status Dates Trey Brown DO Primary Care Provider, Referring Devan jacinto Active Dick Hall DO Attending Provider Active Choker Hooker Relationship Specialty Start Date End Date Trey Brown DO [address] [place] [address] PCP - [employer] 05/09/20 Trey Brown DO [address] [place] [address] PCP - General Internal Medicine 10/15/22 Team Status: Inactive Member Role Status Dates Trey Brown DO Primary Care Provide r, Referring Provider Active Start: April 06, 2023 End: April 06, 2023 Dick Hall DO Attending Provider Active Start: April 06, 2023 End: April 06, 2023 Team Status: Inactive Member Role Status Dates Trey Brown DO Primary Care Provider Active Start: April 27, 2023 End: April 27, 2023 Abena Diane APRN Emergency Provider Active Start: April 27, 2023 End: April 27, 2023 Team Status: Inactive Member Role Status Dates Trey Brown DO Primary Care Provider Active Start: June 09, 2023 End: June 09, 2023 Gisell Howard APRN Emergency Provider Active Start: June 09, 2023 End: June 09, 2023 Team Status: Inactive Member Role Status Dates Trey Brown DO Primary Care Provider Active Start: June 17, 2023 End: June 17, 2023 Renu Oquendo APRN [facility] Attending Provider Active Start: June 17, 2023 End: June 17, 2023 Choker Hooker Relationship Specialty Start Date End Date Trey Brown DO [address] [place] [address] PCP - General Internal Medicine 04/12/17 Naty Booker Jr., [address] [place] [address] Referring Gastroenterology 03/29/17 Choker Hooker Relationship Specialty Start Date End Date Trey Brown DO [address] [place] [address] PCP - General Internal Medicine 04/12/17 Naty Booker Jr., DO [address] [address] Referring Gastroenterology 03/29/17 Team Status: Inactive Member Role Status Dates Trey Brown DO Primary Care Provider Active Start: July 16, 2023 End: July 16, 2023 Pat Barnett APRN Attending Provider Active Sta rt: July 16, 2023 End: July 16, 2023 Team Status: Inactive Member Role Status Dates Trey Brown DO Primary Care Provider Active Start: July 23, 2023 End: July 23, 2023 Chastity Bird APRN Attending Provider Active S tart: July 23, 2023 End: July 23, 2023 Choker Hooker Relationship Specialty Start Date End Date Trey Brown DO [address] [facility] [address] [place] [address] PCP - General Internal Medicine 04/12/17 Naty Booker Jr., DO [address] [address] Referring Gastroenterology 03/29/17 Team Status: Inactive Member Role Status Dates Trey Brown DO Primary Care Provider Active Start: August 09, 2023 End: August 09, 2023 Ezequiel Cano MD Attending Provider Active St art: August 09, 2023 End: August 09, 2023 Choker Hooker Relationship Specialty Start Date End Date Trey Brown DO [address] [facility] [address] [place] [address] PCP - General Internal Medicine 04/12/17 Naty Booker Jr., DO [address] [address] Referring Gastroenterology 03/29/17 Choker Hooker Relationship Specialty Start Date End Date Trey Brown, DO [address] [facility] [address] [place] [address] PCP - General Internal Medicine 04/12/17 Naty Booker Jr., DO [address] [facility] [place] [address] Referring Gastroenterology 03/29/17 Choker Hooker Relationship Specialty Start Date End Date Trey Brownan, DO [address] [facility] [address] [place] [address] PCP - General Internal Medicine 04/12/17 Naty Booker Jr., DO [address] [address] [place] [address] Referring Gastroenterology 03/29/17 Choker Hooker Relationship Specialty Start Date End Date Trey Brown, DO [address] [facility] [address] [place] [address] PCP - General Internal Medicine 04/12/17 Naty Booker Jr., DO [address] [address] [place] [address] Referring Gastroenterology 03/29/17 Choker Hooker Relationship Specialty Start Date End Date Stephanie Treyjak Eugene, DO [address] [facility] [address] [place] [address] PCP - General Internal Medicine 04/12/17 Naty Booker Jr., DO [address] [place] [address] [place] [address] Referring Gastroenterology 03/29/17 Team Status: Inactive Member Role Status Dates Trey Brown DO Primary Care Provider Active Start: September 02, 2023 End: September 02, 2023 Chastity Bird APRN Attending Provider Active S tart: September 02, 2023 End: September 02, 2023 Choker Hooker Relationship Specialty Start Date End Date Trey Brwon DO [address] [place] [address] PCP - General Internal Medicine 04/12/17 Naty Booker Jr., DO [address] [place] [address] Referring Gastroenterology 03/29/17 Team Status: Inactive Member Role Status Dates Trey Brown DO Primary Care Provider Active Start: September 20, 2023 End: September 20, 2023 Soraida Corral APRN Attending Provider Active Start: September 20, 2023 End: September 20, 2023 Team Status: Inactive Member Role Status Dates Trey Brown DO Primary Care Provider Active Start: September 22, 2023 End: September 22, 2023 Campos Wong DO Attending Provider Active St art: September 22, 2023 End: September 22, 2023 DME Active Start: September End: September 22, 2023 Team Status: Inactive Member Role Status Dates Trey Brown DO Primary Care Provider Active Start: September 22, 2023 End: September 22, 2023 Campos Wong DO Attending Provider Active St art: September 22, 2023 End: September 22, 2023 Choker Hooker Relationship Specialty Start Date End Date Trey Brown DO [address] [place] [address] PCP - General Internal Medicine 04/12/17 Naty Booker Jr., DO [address] [address] Referring Gastroenterology 03/29/17 Team Status: Inactive Member Role Status Dates Trey Brown DO Primary Care Provider Active Start: December 07, 2023 End: December 07, 2023 Kaiden Myers DO Emergency Provider Active Sta rt: December 07, 2023 End: December 07, 2023 Choker Hooker Relationship Specialty Start Date End Date Trey Brown, [address] [address] PCP - General Internal Medicine 04/12/17 Naty Booker Jr., [address] [place] [address] Referring Gastroenterology 03/29/17 Choker Hooker Relationship Specialty Start Date End Date Trey Brown DO [address] [address] PCP - General Internal Medicine 04/12/17 Naty Booker Jr., [address] [place] [address] Referring Gastroenterology 03/29/17 Choker Hooker Relationship Specialty Start Date End Date Trey Brown DO [address] [facility] [address] [place] [address] PCP - General Internal Medicine 04/12/17 Naty Booker Jr., [address] [place] [address] Referring Gastroenterology 03/29/17 Team Status: Inactive Member Role Status Dates Trey Brown DO Primary Care Provider Active Start: January 22, 2024 End: January 23, 2024 Seamus Monaco DO Emergency Provider Active St art: January 22, 2024 End: January 23, 2024 Choker Hooker Relationship Specialty Start Date End Date Trey Brown DO [address] [facility] [address] [place] [address] PCP - General Internal Medicine 04/12/17 Naty Booker Jr., DO [address] [address] Referring Gastroenterology 03/29/17 Team Status: Inactive Member Role Status Dates Trey Brown DO Primary Care Provider Active Start: January 24, 2024 End: January 24, 2024 Seamus Dyer MD Attending Provider Active St art: January 24, 2024 End: January 24, 2024 Choker Hooker Relationship Specialty Start Date End Date Trey Brown DO [address] [facility] [address] [place] [address] PCP - General Internal Medicine 04/12/17 Naty Booker Jr., DO [address] [address] Referring Gastroenterology 03/29/17 Choker Hooker Relationship Specialty Start Date End Date Trey Brown DO [address] [facility] [address] [place] [address] PCP - General Internal Medicine 04/12/17 Naty Booker Jr., DO [address] [address] Referring Gastroenterology 03/29/17 Choker Hooker Relationship Specialty Start Date End Date Trey Brown DO [address] [place] [address] PCP - Humana 06/09/19 Trey Brown DO [address] [place] [address] PCP - General Internal Medicine 10/15/22 Choker Hooker Relationship Specialty Start Date End Date Trey Brown DO [address] [place] [address] PCP - Humana 06/09/19 Trey Brown DO [address] [place] [address] PCP - General Internal Medicine 10/15/22 Choker Hooker Relationship Specialty Start Date End Date Trey Brown, DO [address] [place] [address] PCP - General Internal Medicine 04/12/17 Naty Booker Jr., DO [address] [address] [place] [address] Referring Gastroenterology 03/29/17 Rachael Banegas CNP [address] [place] [address] Referring Internal Medicine 03/09/24 Choker Hooker Relationship Specialty Start Date End Date Trey Brown DO [address] [place] [address] PCP - General Internal Medicine 04/12/17 Naty Booker Jr., DO [address] [address] [place] [address] Referring Gastroenterology 03/29/17 Rachael Banegas CNP [address] [place] [address] Referring Internal Medicine 03/09/24 Choker Hooker Relationship Specialty Start Date End Date Trey Brown, DO [address] [place] [address] PCP - General Internal Medicine 04/12/17 Naty Booker Jr., DO [address] [place] [address] Referring Gastroenterology 03/29/17 Rachael Banegas CNP [address] [place] [address] Referring Internal Medicine 03/09/24 Choker Hooker Relationship Specialty Start Date End Date Trey Brown DO [address] [place] [address] PCP - General Internal Medicine 04/12/17 Naty Booker Jr., DO [address] [address] [place] [address] Referring Gastroenterology 03/29/17 Rachael Banegas CNP [address] [place] [address] Referring Internal Medicine 03/09/24 Choker Hooker Relationship Specialty Start Date End Date Trey Brown DO [address] [place] [address] PCP - General Internal Medicine 04/12/17 Naty Booker Jr., DO [address] [place] [address] Referring Gastroenterology 03/29/17 Rachael Banegas CNP [address] [place] [address] Referring Internal Medicine 03/09/24 Choker Hooker Relationship Specialty Start Date End Date Trey Brown, [address] [place] [address] PCP - General Internal Medicine 04/12/17 Naty Booker Jr., DO [address] [address] [place] [address] Referring Gastroenterology 03/29/17 Rcahael Banegas CNP [address] [place] [address] Referring Internal Medicine 03/09/24 Choker Hooker Relationship Specialty Start Date End Date Trey Brown DO [address] [place] [address] PCP - Humana 06/09/19 Trey Brown DO [address] [place] [address] PCP - General Internal Medicine 10/15/22 Choker Hooker Relationship Specialty Start Date End Date Trey Brown DO [address] [place] [address] PCP - Humana 06/09/19 Trey Brown DO [address] [place] [address] PCP - General Internal Medicine 10/15/22 Choker Hooker Relationship Specialty Start Date End Date Trey Brown DO [address] [place] [address] PCP - General Internal Medicine 04/12/17 Naty Bokoer Jr., DO [address] [place] [address] Referring Gastroenterology 03/29/17 Rachael Banegas CNP [address] [place] [address] Referring Internal Medicine 03/09/24 Choker Hooker Relationship Specialty Start Date End Date Trey Brown, [address] [place] [address] PCP - General Internal Medicine 04/12/17 Naty Booker Jr., DO [address] [place] [address] Referring Gastroenterology 03/29/17 Rachael Banegas CNP [address] [place] [address] Referring Internal Medicine 03/09/24 Choker Hooker Relationship Specialty Start Date End Date Trey Brown DO [address] [place] [address] PCP - Humana 06/09/19 Trey Brown DO [address] [place] [address] PCP - General Internal Medicine 10/15/22 Choker Hooker Relationship Specialty Start Date End Date Trey Brown DO [address] [place] [address] PCP - Humana 06/09/19 Trey Brown DO [address] [place] [address] PCP - General Internal Medicine 10/15/22 Choker Hooker Relationship Specialty Start Date End Date Trey Brown DO [address] [place] [address] PCP - Humana 06/09/19 Trey Brown DO [address] [place] [address] PCP - General Internal Medicine 10/15/22 Choker Hooker Relationship Specialty Start Date End Date Trey Brown, [address] [place] [address] PCP - General Internal Medicine 04/12/17 Naty Booker Jr., DO [address] [address] [place] [address] Referring Gastroenterology 03/29/17 Rachael Banegas CNP [address] [place] [address] Referring Internal Medicine 03/09/24 Choker Hooker Relationship Specialty Start Date End Date Trey Brown, [address] [place] [address] PCP - General Internal Medicine 04/12/17 Naty Booker Jr., DO [address] [place] [address] Referring Gastroenterology 03/29/17 Rachael Banegas CNP [address] [place] [address] Referring Internal Medicine 03/09/24 Choker Hooker Relationship Specialty Start Date End Date Trey Brown DO [address] [place] [address] PCP - General Internal Medicine 04/12/17 Naty Booker Jr., DO [address] [place] [address] Referring Gastroenterology 03/29/17 Rachael Banegas CNP [address] [place] [address] Referring Internal Medicine 03/09/24 Team Status: Inactive Member Role Status Dates Trey Brown DO Primary Care Provider Active Start: April 06, 2024 End: April 06, 2024 Hernando Hylton PA-C Attending Provider Active St art: April 06, 2024 End: April 06, 2024 Team Status: Inactive Member Role Status Dates Trey Brown DO Primary Care Provider Active Start: April 12, 2024 End: April 12, 2024 Seamus Dyer MD Attending Provider Active St art: April 12, 2024 End: April 12, 2024 Team Status: Inactive Member Role Status Dates Trey Brown DO Primary Care Provider Active Start: April 16, 2024 End: April 16, 2024 Vu Bermudez DO Attending Provider Active S tart: April 16, 2024 End: April 16, 2024 Team Status: Inactive Member Role Status Dates Trey Brown DO Primary Care Provider Active Start: April 17, 2024 End: April 17, 2024 Campos Wong DO Attending Provider Active St art: April 17, 2024 End: April 17, 2024 Team Status: Inactive Member Role Status Dates rTey Brown DO Primary Care Provider Active Start: April 17, 2024 End: April 17, 2024 Vu Bermudez , Attending Provider Active S tart: April 17, 2024 End: April 17, 2024 Team Status: Inactive Member Role Status Dates Trey Brown DO Primary Care Provider Active Start: April 24, 2024 End: April 24, 2024 Hernando Hylton PA-C Attending Provider Active St art: April 24, 2024 End: April 24, 2024 Team Status: Inactive Member Role Status Dates Trey Brown DO Primary Care Provider Active Start: May 17, 2024 End: May 17, 2024 Campos Wong DO Attending Provider Active St art: May 17, 2024 End: May 17, 2024 Choker Hooker Relationship Specialty Start Date End Date Trey Brown DO [address] [place] [address] PCP - General Internal Medicine 04/12/17 Naty Booker Jr., DO [address] [place] [address] Referring Gastroenterology 03/29/17 Rachael Banegas CNP [address] [place] [address] Referring Internal Medicine 03/09/24 Team Status: Inactive Member Role Status Dates Trey Brown DO Primary Care Provider Active Start: May 19, 2024 End: May 19, 2024 Pat Barnett APRN Attending Provider Active Sta rt: May 19, 2024 End: May 19, 2024 Choker Hooker Relationship Specialty Start Date End Date Trey Brown DO [address] [place] [address] PCP - General Internal Medicine 04/12/17 Naty Booker Jr., DO [address] [place] [address] Referring Gastroenterology 03/29/17 Rachael Banegas CNP [address] [place] [address] Referring Internal Medicine 03/09/24 Team Status: Inactive Member Role Status Dates Trey Brown DO Primary Care Provider Active Start: May 23, 2024 End: May 23, 2024 Pat Barnett APRN Attending Provider Active Sta rt: May 23, 2024 End: May 23, 2024 Team Status: Inactive Member Role Status Dates Pat Barnett APRN Attending Provider Active Sta rt: May 23, 2024 End: May 23, 2024 Choker Hooker Relationship Specialty Start Date End Date StephanieTrey DO [address] [place] [address] PCP - General Internal Medicine 04/12/17 Naty Booker Jr., DO [address] [place] [address] Referring Gastroenterology 03/29/17 Rachael Banegas CNP [address] [place] [address] Referring Internal Medicine 03/09/24 Choker Hooker Relationship Specialty Start Date End Date Trey Brown DO [address] [place] [address] PCP - General 05/13/20 Choker Hooker Relationship Specialty Start Date End Date Trey Brown DO [address] [place] [address] PCP - General Internal Medicine 04/12/17 Naty Booker Jr., [address] [address] [place] [address] Referring Gastroenterology 03/29/17 Rachael Banegas CNP [address] [place] [address] Referring Internal Medicine 03/09/24 Team Status: Inactive Member Role Status Dates Trey Brown DO Primary Care Provider Active Start: June 08, 2024 End: June 08, 2024 Trinity Monet MD Attending Provider Active Star t: June 08, 2024 End: June 08, 2024 Choker Hooker Relationship Specialty Start Date End Date Trey Brown DO [address] [place] [address] PCP - Humana 06/09/19 Trey Brown DO [address] [place] [address] PCP - General Internal Medicine 10/15/22 Choker Hooker Relationship Specialty Start Date End Date Trey Brown DO [address] [place] [address] PCP - General Internal Medicine 04/12/17 Naty Booker Jr., DO [address] [facility] [address] [place] [address] Referring Gastroenterology 03/29/17 Rachael Banegas CNP [address] [place] [address] Referring Internal Medicine 03/09/24 Team Status: Inactive Member Role Status Dates Trey Brown DO Primary Care Provider Active Start: July 05, 2024 End: July 05, 2024 Hernando Hylton PA-C Attending Provider Active St art: July 05, 2024 End: July 05, 2024 Team Status: Inactive Member Role Status Dates Hernando Hylton PA-C Attending Provider Active St art: July 05, 2024 End: July 05, 2024 Choker Hooker Relationship Specialty Start Date End Date Trey Brown DO [address] [facility] [address] [place] [address] PCP - Humana 06/09/19 Trey Brown DO [address] [facility] [address] [place] [address] PCP - General Internal Medicine 10/15/22 Team Status: Inactive Member Role Status Dates Luis Fernando Dela Cruz MD Attending Provider Active Sta rt: July 16, 2024 End: July 16, 2024 Trey Brown DO Primary Care Provider Active Start: July 16, 2024 End: July 16, 2024 Team Status: Inactive Member Role Status Dates Trey Brown DO Primary Care Provider Active Start: July 16, 2024 End: July 16, 2024 Luis Fernando Dela Cruz MD Attending Provider Active Sta rt: July 16, 2024 End: July 16, 2024 Team Status: Inactive Member Role Status Dates Trey Brown DO Primary Care Provider Active Start: July 19, 2024 End: July 19, 2024 Luis Fernando Dela Cruz MD Attending Provider Active Sta rt: July 19, 2024 End: July 19, 2024 Choker Hooker Relationship Specialty Start Date End Date Trey Brown DO [address] [place] [address] PCP - General Internal Medicine 04/12/17 Naty Booker Jr., DO [address] [address] [place] [address] Referring Gastroenterology 03/29/17 Rachael Banegas CNP [address] [facility] [address] [place] [address] Referring Internal Medicine 03/09/24 Team Status: Inactive Member Role Status Dates Trey Brown DO Primary Care Provider Active Start: July 30, 2024 End: July 30, 2024 Pat Barnett APRN Attending Provider Active Sta rt: July 30, 2024 End: July 30, 2024 Team Status: Inactive Member Role Status Dates Trey Brown DO Primary Care Provider Active Start: August 13, 2024 End: August 13, 2024 Luis Fernando Dela Cruz MD Attending Provider Active Sta rt: August 13, 2024 End: August 13, 2024 Choker Hooker Relationship Specialty Start Date End Date Trey Brown DO [address] [facility] [address] [place] [address] PCP - Humana 06/09/19 Trey Brown DO [address] [facility] [address] [place] [address] PCP - General Internal Medicine 10/15/22 Team Status: Inactive Member Role Status Dates Trey Brown DO Primary Care Provider Active Start: August 18, 2024 End: August 18, 2024 Gisell N Saffle , LABELING STRATEGIST Emergency Provider Active Start: August 18, 2024 End: August 18, 2024 Choker Hooker Relationship Specialty Start Date End Date Trey Brown DO [address] [place] [address] PCP - [facility] 06/09/19 Trey Brown DO [address] [place] [address] PCP - General Internal Medicine 10/15/22 Team Status: Inactive Member Role Status Dates Trey Brown DO Primary Care Provider Active Start: August 28, 2024 End: August 28, 2024 Luis Fernando Dela Cruz MD Attending Provider Active Sta rt: August 28, 2024 End: August 28, 2024 Team Status: Inactive Member Role Status Dates Trey Brown DO Primary Care Provider Active Start: September 13, 2024 End: September 13, 2024 Hernando Hylton PA-C Attending Provider Active St art: September 13, 2024 End: September 13, 2024 Team Status: Inactive Member Role Status Dates Hernando Hylton PA-C Attending Provider Active St art: September 13, 2024 End: September 13, 2024 Choker Hooker Relationship Specialty Start Date End Date Trey Brown DO [address] [place] [address] PCP - Human 06/09/19 Trey Brown DO [address] [place] [address] PCP - General Internal Medicine 10/15/22 Goals (unrecognized section and content) Goals may be documented in a n alternate section FOR RECORDS PERTAINING TO PATIENTS WHO ARE OR HAVE BEEN ENROLLED IN A CHEMICAL DEPENDENCY/SUBSTANCEABUSE PROGRAM, SOME INFORMATION MAY BE OMITTED. This clinical summary was aggregated from multiple sources. Caution should be exercised in using it in the provision of clinical care. This summary normalizes information from multiple sources, and as a consequence, information in this document may materially change the coding, format and clinical context of patient data. In addition, data may be omitted in some cases. CLINICAL DECISIONS SHOULD BE BASED ON THE PRIMARY CLINICAL RECORDS. [facility]. provides no warranty or guarantee of the accuracy or completeness of information in this document.
[2024-10-21 17:02] VITALS: BP 136/93; PULSE 91; TEMP 36.8; O2SAT 96; BMI 37.8
[2024-10-21 17:37] LABS: Bilirubin Urine NEGATIVE (NEGATIVE); Blood Urine TRACE-I (NEGATIVE); Clarity Urine CLEAR (CLEAR); Color Urine LT. YELLOW (YELLOW); Glucose Urine UA NEGATIVE (NEGATIVE); Ketones Urine NEGATIVE (NEGATIVE); Leukocyte Esterase Urine NEGATIVE (NEGATIVE); Nitrite Urine NEGATIVE (NEGATIVE); Protein Urine NEGATIVE (NEG/TRACE); Specific Gravity Urine 1.015 (1.005-1.025); Urobilinogen Urine 0.2 EU/dL (0.2-1.0)
[2024-10-21 17:49] LABS: Bacteria Urine TRACE #/HPF (NONE SEEN); Cast Seen? NONE SEEN #/LPF (NONE SEEN); Crystals Seen? None Seen #/HPF (None Seen); Mucus Urine NONE SEEN (NONE SEEN); RBC Urine 0-2 #/HPF (0-2); Squamous Epithelial Cell Urine RARE #/LPF (NONE/RARE); Urine Culture Indicated NO; WBC Urine 0-2 #/HPF (NONE SEEN)
[2024-10-21] MEDS: KETOROLAC TROMETHAMINE 30 MG/ML VIAL 15 MG IVP (18:03)
[2024-10-21 18:22] LABS: Basophils Percent Auto 0.4 % (0.2-2.0); Eosinophils Absolute Auto 0.1 10^3/uL (0.0-0.7); Eosinophils Percent Auto 1.2 % (0.9-7.0); Hematocrit 38.8 % (36.0-48.0); Hemoglobin 12.9 g/dL (12.0-16.0); Lymphocytes Absolute Auto 1.6 10^3/uL (1.2-3.8); Lymphocytes Percent Auto 21.6 % (20.5-60.0); Mean Corpuscular HGB Conc 33.2 g/dL (29.9-35.2); Mean Corpuscular Hemoglobin 27.7 pg (26.7-34.0); Mean Corpuscular Volume 83.3 fL (81.0-99.0); Mean Platelet Volume 9.3 fL (9.5-13.5); Monocytes Absolute Auto 0.6 10^3/uL (0.3-0.8); Monocytes Percent Auto 7.7 % (1.7-12.0); Neutrophils Absolute Auto 5.2 10^3/uL (1.4-6.5); Neutrophils Percent Auto 69.1 % (43.0-75.0); Platelet Count 251 10^3/uL (150-450); Red Blood Count 4.66 10^6/uL (4.20-5.40); Red Cell Distribution Width 13.3 % (11.0-15.0); White Blood Count 7.6 10^3/uL (4.0-11.0)
--- NOTE | 2024-10-21 18:39 | ED_ITS ---
HPI - Abdominal Pain General Chief Complaint: Abdominal Pain Stated Complaint: RIGHT SIDE PAIN Time Seen by Provider: 10/21/24 17:48 Source: patient Mode of arrival: walk-in Limitations: no limitations History of Present Illness HPI narrative: The patient presented to the ER with a right sided flank pain rating to the front of the abdomen. The pain started just today few hours ago it is associated with nausea but no vomiting. Patient have a history of kidney stone she denies any burning with urination but she mentioned some difficulty urinating for the last few hours No other concerns of fever or chills or any other complaints Related Data Home Medications ?Medication ?Instructions ?Recorded ?Confirmed ascorbic acid (vitamin C) (Radha-C 1 g PO DAILY 4 10/21/24 crystals) bisacodyl 5 mg tablet,delayed 5 mg PO BID PRN constipa tion 01/25/24 10/21/24 release (Dulcolax (bisacodyl)) ibuprofen 800 mg tablet 800 mg PO .every 8 hours 10/21/24 ropinirole 0.25 mg tablet 0.5 mg PO .every pm 01/25/24 10/21/24 rosuvastatin 20 mg tablet 40 mg PO QDAY 01/25/2410/21 trazodone 100 mg tablet 100 mg PO QPM 01/25/2410/21 Allergies Allergy/AdvReac Type Severity Reaction Status Date / Time Nubain AdvReac Intermediate muscle Uncoded 10/21/24 17:05 spasms iodine contrast AdvReac Mild shortness Uncoded 10/21/24 17:05 of breath Review of Systems ROS Status of ROS 10 or more systems reviewed and unremark able except as noted in history and below [facility] Medical History (Updated 01/25/24 @ 13:34 by Karen Carter RN) Sleep apnea ?G47.30 - Sleep apnea, unspecified (ICD-10) FHx: bone marrow transplant ?Z84.89 - Family history of other specified conditions (ICD-10) Vaginitis ?N76.0 - Acute vaginitis (ICD-10) Ureteral stone ?N20.1 - Calculus of ureter (ICD-10) Stress incontinence ?N39.3 - Stress incontinence (female) (male) (ICD-10) Stomach cancer ?C16.9 - Malignant neoplasm of stomach, unspecified (ICD-10) Other urethral stricture, female ?N35.82 - Other urethral stricture, female (ICD-10) Nocturia ?R35.1 - Nocturia (ICD-10) Microhematuria ?R31.29 - Other microscopic hematuria (ICD-10) Kidney stones ?N20.0 - Calculus of kidney (ICD-10) Hypercholesteremia ?E78.00 - Pure hypercholesterolemia, unspecified (ICD-10) Gallstones ?K80.20 - Calculus of gallbladder without cholecystitis without obstruction (ICD-10) Dysuria ?R30.0 - Dysuria (ICD-10) Depression ?F32.A - Depression, unspecified (ICD-10) Anxiety ?F41.9 - Anxiety disorder, unspecified (ICD-10) Surgical History (Updated 01/25/24 @ 13:23 by Karen Carter RN) H/O: hysterectomy ?Z90.710 - Acquired absence of both cervix and uterus (ICD-10) H/O colonoscopy ?Z98.890 - Other specified postprocedural states (ICD-10) History of cholecystectomy ?Z90.49 - Acquired absence of other specified parts of digestive tract (ICD- 10) H/O abdominoplasty ?Z98.890 - Other specified postprocedural states (ICD-10) History of breast lift ?Z98.890 - Other specified postprocedural states (ICD-10) H/O resection of stomach ?Z90.3 - Acquired absence of stomach [part of] (ICD-10) S/P cystourethroscopy with dilation of urethral stricture ?Z98.890 - Other specified postprocedural states (ICD-10) Family History (Updated 01/25/24 @ 13:42 by Karen Carter, KRISTI) Other Alcoholism Family history of cancer Family history of diabetes mellitus Family history of hypertension Family history of myocardial infarction Social History (Updated 01/25/24 @ 13:26 by Karen Carter, KRISTI) Within the past year, how often did you have a drink containing alcohol: never Score interpretation: A score less than 3 is consistent with normal alcohol consumption. 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 General: Well-appearing and in no apparent distress. Skin: Warm, dry, no pallor noted. No rash. Head: Normocephalic, atraumatic. Neck: Supple, non-tender. Eye: Pupils are equal, round and EOMI. No scleral icterus. Ears, Nose, Mouth, and Throat: TM are clear, no nasal mucosal hypertrophy. Oral mucosa is moist, no posterior oropharynx erythema, uvula is mid-line Cardiovascular: Regular Rate and Rhythm without murmur, gallop or rub. Respiratory: No accessory muscle use or respiratory distress. Lungs are clear to auscultation, no wheezing, rales or rhonchi Chest Wall: no tenderness Back: No midline thoracic or lumbar vertebral tenderness. Left CVA tenderness Musculoskeletal: normal ROM, no calf or popliteal tenderness, no lower extremity edema/swelling GI: Abdomen is soft, non-distended. Normal bowel sounds. No masses appreciated. Right abdominal tenderness noted Neurological: A&O x4. No cranial nerve dysfunction observed. No truncal ataxia. Moves all extremities. Sensation intact. Psychiatric: Cooperative and interactive. Normal mood and affect. Constitutional Vital Signs, click to edit/add: Last Vital Signs Temp 98.2 F 10/21/24 17:02 Pulse 91 H 10/21/24 17:02 Resp 18 10/21/24 17:02 BP 136/93 H 10/21/24 17:02 Pulse Ox 96 10/21/24 17:02 O2 Del Method Room Air 10/21/24 17:02 Course Vital Signs Vital signs: Vital Signs Temperature 98.2 F 10/21/24 17:02 Pulse Rate 91 H 10/21/24 17:02 Respiratory Rate 18 10/21/24 17:02 Blood Pressure 136/93 H 10/21/24 17:02 Pulse Oximetry 96 10/21/24 17:02 Oxygen Delivery Method Room Air 10/21/24 17:02 Temperature 98.2 F 10/21/24 17:02 Pulse Rate 91 H 10/21/24 17:02 Respiratory Rate 18 10/21/24 17:02 Blood Pressure 136/93 H 10/21/24 17:02 Pulse Oximetry 96 10/21/24 17:02 Oxygen Delivery Method Room Air 10/21/24 17:02 MDM - Abdominal Pain MDM Narrative Medical decision making narrative: The patient presentation is concerning for possible kidney stone specially with the patient history Patient provided Toradol And the CAT scan as well as the blood workup pending the patient care will be transferred to Dr. Marshall Lab Data Labs: Lab Results 10/21/24 10/21/24 Range/Units 17:14 18:10 WBC 7.6 (4.0-11.0) 10^3/uL RBC 4.66 (4.20-5.40) 10^6/uL Hgb 12.9 (12.0-16.0) g/dL Hct 38.8 (36.0-48.0) % MCV 83.3 (81.0-99.0) fL MCH 27.7 (26.7-34.0) pg MCHC 33.2 (29.9-35.2) g/dL RDW 13.3 (11.0-15.0) % Plt Count 251 (150-450) 10^3/uL MPV 9.3 L (9.5-13.5) fL Neut % (Auto) 69.1 (43.0-75.0) % Lymph % (Auto) 21.6 (20.5-60.0) % [place] % (Auto) 7.7 (1.7-12.0) % Eos % (Auto) 1.2 (0.9-7.0) % Baso % (Auto) 0.4 (0.2-2.0) % Neut # (Auto) 5.2 (1.4-6.5) 10^3/uL Lymph # (Auto) 1.6 (1.2-3.8) 10^3/uL [place] # (Auto) 0.6 (0.3-0.8) 10^3/uL Eos # (Auto) 0.1 (0.0-0.7) 10^3/uL Baso # (Auto) 0.0 (0.0-0.1) 10^3/uL Abs Immat Gran (auto) 0.00 (0.00-0.03) 10^3/uL Imm/Tot Granulo (auto) 0.0 (0.0-0.5) % Urine Color Lt. yellow (YELLOW) Urine Clarity Clear (CLEAR) Urine pH 6.0 (5.0-9.0) Ur Specific [place] 1.015 (1.005-1.025) Urine Protein Negative (NEG/TRACE) mg/dL Urine Glucose (UA) Negative (NEGATIVE) mg/dL Urine Ketones Negative (NEGATIVE) mg/dL Urine Occult Blood Trace-i (NEGATIVE) Urine Nitrite Negative (NEGATIVE) Urine Bilirubin Negative (NEGATIVE) Urine Urobilinogen 0.2 (0.2-1.0) EU/dL Ur Leukocyte Esterase Negative (NEGATIVE) Urine RBC 0-2 (0-2) #/HPF Urine WBC 0-2 A (NONE SEEN) #/HPF Ur Squamous Epith Cells Rare (NONE/RARE) #/LPF Urine Crystals None seen (None Seen) #/HPF Urine Bacteria Trace A (NONE SEEN) #/HPF Urine Casts None seen (NONE SEEN) #/LPF Urine Mucus None seen (NONE SEEN) Ur Culture Indicated? No Discharge Plan Discharge Patient Disposition: Still a Patient
[2024-10-21 18:50] LABS: Alanine Aminotransferase 20 U/L (14-59); Albumin Globulin Ratio 1.2; Albumin Level 3.9 g/dL (3.4-5.0); Alkaline Phosphatase 75 U/L (46-116); Anion Gap 15.7; Aspartate Amino Transferase 21 U/L (15-37); BUN Creatinine Ratio 26.4; Bilirubin Total 0.2 mg/dL (0.2-1.0); Calcium 9.6 mg/dL (8.5-10.1); Chloride 105 mmol/L (98-107); Estimated GFR (African America >60 (>=60 mL/min/1.73m^2); Estimated GFR (Non-African Ame >60 (>=60 mL/min/1.73m^2); Globulin 3.3 g/dL; Glucose 79 mg/dL (74-106); Potassium 3.7 mmol/L (3.5-5.1); Sodium 142 mmol/L (136-145); Total Protein 7.2 g/dL (6.4-8.2)
[2024-10-21 19:18] VITALS: BP 147/95; PULSE 80; O2SAT 99
[2024-10-21 20:22] VITALS: BP 127/79; PULSE 83; O2SAT 98
--- NOTE | 2024-10-21 20:43 | ED_ITS ---
HPI - Abdominal Pain General Chief Complaint: Abdominal Pain Stated Complaint: RIGHT SIDE PAIN Time Seen by Provider: 10/21/24 17:48 Source: patient Mode of arrival: walk-in Limitations: no limitations History of Present Illness HPI narrative: This 54-year-old female with a history of kidney stones was signed out to me at shift change pending labs, urinalysis and CT scan. She presents for evaluation of acute onset of right flank pain radiating into her right upper quadrant several hours earlier in the day. She denies any injury. She has had kidney stones in the past and sees Dr. Dyer. I reviewed her labs and urinalysis. She has a normal white count and hemoglobin. Urine is negative for infection or blood. CT scan of the abdomen pelvis shows a normal heart size with a trace volume of pericardial fluid, fatty infiltration of the liver, cholecystectomy with mild ectatic common bile duct, no dilated pancreatic duct, no acute process seen in the spleen pancreas adrenal glands or kidneys. The appendix was seen and was normal. 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 There is a 4 mm nonobstructing stone at the mid pole of the right kidney. There is no hydronephrosis or perinephric stranding. There is mild colon diverticulosis, mild sigmoid colon diverticulosis, hysterectomy with lower pelvic phleboliths, there is no free air or free fluid, no abscess or hematoma, small umbilical hernia containing only fat, no bowel or renal obstruction. The results of the labs and CT scan were discussed with the patient. She is comfortable at this time but request something to take at home if the pain comes back. She will be discharged home with Zofran and 2 [place] and a prescription for ibuprofen, [place] and Zofran scription's as well as a copy of her CT scan will be given to her at the time of discharge. Related Data Home Medications ?Medication ?Instructions ?Recorded ?Confirmed ascorbic acid (vitamin C) (Radha-C 1 g PO DAILY 4 10/21/24 crystals) bisacodyl 5 mg tablet,delayed 5 mg PO BID PRN constipa tion 01/25/24 10/21/24 release (Dulcolax (bisacodyl)) ibuprofen 800 mg tablet 800 mg PO .every 8 hours 10/21/24 ropinirole 0.25 mg tablet 0.5 mg PO .every pm 01/25/24 10/21/24 rosuvastatin 20 mg tablet 40 mg PO QDAY 01/25/2410/21 trazodone 100 mg tablet 100 mg PO QPM 01/25/2410/21 Allergies Allergy/AdvReac Type Severity Reaction Status Date / Time Nubain AdvReac Intermediate muscle Uncoded 10/21/24 17:05 spasms iodine contrast AdvReac Mild shortness Uncoded 10/21/24 17:05 of breath [facility] Medical History (Updated 10/21/24 @ 20:42 by Tosin Marshall MD) Sleep apnea ?G47.30 - Sleep apnea, unspecified (ICD-10) FHx: bone marrow transplant ?Z84.89 - Family history of other specified conditions (ICD-10) Vaginitis ?N76.0 - Acute vaginitis (ICD-10) Ureteral stone ?N20.1 - Calculus of ureter (ICD-10) Stress incontinence ?N39.3 - Stress incontinence (female) (male) (ICD-10) Stomach cancer ?C16.9 - Malignant neoplasm of stomach, unspecified (ICD-10) Other urethral stricture, female ?N35.82 - Other urethral stricture, female (ICD-10) Nocturia ?R35.1 - Nocturia (ICD-10) Microhematuria ?R31.29 - Other microscopic hematuria (ICD-10) Kidney stones ?N20.0 - Calculus of kidney (ICD-10) Hypercholesteremia ?E78.00 - Pure hypercholesterolemia, unspecified (ICD-10) Gallstones ?K80.20 - Calculus of gallbladder without cholecystitis without obstruction (ICD-10) Dysuria ?R30.0 - Dysuria (ICD-10) Depression ?F32.A - Depression, unspecified (ICD-10) Anxiety ?F41.9 - Anxiety disorder, unspecified (ICD-10) Surgical History (Updated 01/25/24 @ 13:23 by Karen Carter RN) H/O: hysterectomy ?Z90.710 - Acquired absence of both cervix and uterus (ICD-10) H/O colonoscopy ?Z98.890 - Other specified postprocedural states (ICD-10) History of cholecystectomy ?Z90.49 - Acquired absence of other specified parts of digestive tract (ICD- 10) H/O abdominoplasty ?Z98.890 - Other specified postprocedural states (ICD-10) History of breast lift ?Z98.890 - Other specified postprocedural states (ICD-10) H/O resection of stomach ?Z90.3 - Acquired absence of stomach [part of] (ICD-10) S/P cystourethroscopy with dilation of urethral stricture ?Z98.890 - Other specified postprocedural states (ICD-10) Family History (Updated 01/25/24 @ 13:42 by Karen Carter, KRISTI) Other Alcoholism Family history of cancer Family history of diabetes mellitus Family history of hypertension Family history of myocardial infarction Social History (Updated 01/25/24 @ 13:26 by Karen Carter RN) Within the past year, how often did you have a drink containing alcohol: never Score interpretation: A score less than 3 is consistent with normal alcohol consumption. 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/hazards: No Highest level of school completed/degree received: some college, no degree Little interest or pleasure in doing things: not at all Feeling down, depressed, or hopeless: not at all Exam Constitutional Vital Signs, click to edit/add: Last Vital Signs Temp 98.2 F 10/21/24 17:02 Pulse 83 10/21/24 20:22 Resp 20 10/21/24 20:22 BP 127/79 10/21/24 20:22 Pulse Ox 98 10/21/24 20:22 O2 Del Method Room Air 10/21/24 20:22 Course Vital Signs Vital signs: Vital Signs Temperature 98.2 F 10/21/24 17:02 Pulse Rate 91 H 10/21/24 17:02 Respiratory Rate 18 10/21/24 17:02 Blood Pressure 136/93 H 10/21/24 17:02 Pulse Oximetry 96 10/21/24 17:02 Oxygen Delivery Method Room Air 10/21/24 17:02 Temperature 98.2 F 10/21/24 17:02 Pulse Rate 83 10/21/24 20:22 Respiratory Rate 20 10/21/24 20:22 Blood Pressure 127/79 10/21/24 20:22 Pulse Oximetry 98 06/15/25 20:22 Oxygen Delivery Method Room Air 10/21/24 20:22 MDM - Abdominal Pain Lab Data Labs: Lab Results 10/21/24 10/21/24 Range/Units 17:14 18:10 WBC 7.6 (4.0-11.0) 10^3/uL RBC 4.66 (4.20-5.40) 10^6/uL Hgb 12.9 (12.0-16.0) g/dL Hct 38.8 (36.0-48.0) % MCV 83.3 (81.0-99.0) fL MCH 27.7 (26.7-34.0) pg MCHC 33.2 (29.9-35.2) g/dL RDW 13.3 (11.0-15.0) % Plt Count 251 (150-450) 10^3/uL MPV 9.3 L (9.5-13.5) fL Neut % (Auto) 69.1 (43.0-75.0) % Lymph % (Auto) 21.6 (20.5-60.0) % [place] % (Auto) 7.7 (1.7-12.0) % Eos % (Auto) 1.2 (0.9-7.0) % Baso % (Auto) 0.4 (0.2-2.0) % Neut # (Auto) 5.2 (1.4-6.5) 10^3/uL Lymph # (Auto) 1.6 (1.2-3.8) 10^3/uL [place] # (Auto) 0.6 (0.3-0.8) 10^3/uL Eos # (Auto) 0.1 (0.0-0.7) 10^3/uL Baso # (Auto) 0.0 (0.0-0.1) 10^3/uL Abs Immat Gran (auto) 0.00 (0.00-0.03) 10^3/uL Imm/Tot Granulo (auto) 0.0 (0.0-0.5) % Sodium 142 (136-145) mmol/L Potassium 3.7 (3.5-5.1) mmol/L Chloride 105 (98-107) mmol/L Carbon Dioxide 25.0 (21.0-32.0) mmol/L Anion Gap 15.7 BUN 14.0 (7.0-18.0) mg/dL Creatinine 0.53 L (0.55-1.02) mg/dL Est GFR ( Amer) >60 (>=60 mL/min/1.73m^2) Est GFR (Non-Af Amer) >60 (>=60 mL/min/1.73m^2) BUN/Creatinine Ratio 26.4 Glucose 79 (74-106) mg/dL Calcium 9.6 (8.5-10.1) mg/dL Total Bilirubin 0.2 (0.2-1.0) mg/dL AST 21 (15-37) U/L ALT 20 (14-59) U/L Alkaline Phosphatase 75 (46-116) U/L Total Protein 7.2 (6.4-8.2) g/dL Albumin 3.9 (3.4-5.0) g/dL Globulin 3.3 g/dL Albumin/Globulin Ratio 1.2 Urine Color Lt. yellow (YELLOW) Urine Clarity Clear (CLEAR) Urine pH 6.0 (5.0-9.0) Ur Specific [place] 1.015 (1.005-1.025) Urine Protein Negative (NEG/TRACE) mg/dL Urine Glucose (UA) Negative (NEGATIVE) mg/dL Urine Ketones Negative (NEGATIVE) mg/dL Urine Occult Blood Trace-i (NEGATIVE) Urine Nitrite Negative (NEGATIVE) Urine Bilirubin Negative (NEGATIVE) Urine Urobilinogen 0.2 (0.2-1.0) EU/dL Ur Leukocyte Esterase Negative (NEGATIVE) Urine RBC 0-2 (0-2) #/HPF Urine WBC 0-2 A (NONE SEEN) #/HPF Ur Squamous Epith Cells Rare (NONE/RARE) #/LPF Urine Crystals None seen (None Seen) #/HPF Urine Bacteria Trace A (NONE SEEN) #/HPF Urine Casts None seen (NONE SEEN) #/LPF Urine Mucus None seen (NONE SEEN) Ur Culture Indicated? No Discharge Plan Discharge Chief Complaint: Abdominal Pain Clinical Impression: Abdominal pain, RUQ, Flank pain Patient Disposition: Home, Self-Care Time of Disposition Decision: 20:41 Condition: Good Prescriptions / Home Meds: No Action bisacodyl [Dulcolax (bisacodyl)] 5 mg tablet,delayed release (DR/EC) 5 mg PO BID PRN (Reason: constipation) ibuprofen 800 mg tablet 800 mg PO .every 8 hours rosuvastatin 20 mg tablet 40 mg PO QDAY ropinirole 0.25 mg tablet 0.5 mg PO .every pm trazodone 100 mg tablet 100 mg PO QPM Radha-C Crystals 1 g PO DAILY Print Language: Turkish Instructions: Abdominal Pain (ED), Flank Pain (ED) Referrals: ISAEL BROWN [Primary Care Provider, Family Practice] - 1 week
== END 2024-10-21 20:55 | disposition home or self-care (01) ==
PROVIDERS: Emergency Medicine; Emergency Provider Emergency Medicine; PCP Internal Medicine
DX: R10.11 Right upper quadrant pain (principal); Z87.442 Personal history of urinary calculi; Z90.710 Acquired absence of both cervix and uterus; Z90.49 Acquired absence of other specified parts of digestive tract; K57.30 Diverticulosis of large intestine without perforation or abscess without bleeding; M51.369 Other intervertebral disc degeneration, lumbar region without mention of lumbar back pain or lower extremity pain; I87.8 Other specified disorders of veins; K42.9 Umbilical hernia without obstruction or gangrene; Z87.891 Personal history of nicotine dependence
CPT/HCPCS: 36415; 74176; 80053; 81001; 85025; 96374; 99284; J1885